=== PATIENT | male | born 1955 | race Caucasian/White ===

== ENCOUNTER 2019-04-18 00:28 | Outpatient (CLI) | payer BC, SELFPAY ==
--- NOTE | 2019-04-18 09:54 | DI.NM_ITS ---
APPROVED REPORT Exam: Pharmacologic Patient Location: Out-Patient Room/Bed: Stress Nurse: Elke Umanzor RN BMI: 21.29 Baseline Rhythm: LBBB Medical History Medical History: CAD s/p VA, COPD, Diabetes, HTN, Smoking, GERD Cardiac Medications: Aspirin, Metoprolol, Atorvastatin, Metformin, Allergies: No known drug allergies Cardiac Risk Factors: HTN, Hyperlipidemia, DM, FHX of CAD, Smoking Previous Cardiac Procedures: PCI, Myocardial infarction Pretest Chest Pain Characteristics: No chest pain Exercise History: Physically active Lung Sounds: Clear to auscultation Heart Sounds: Regular Stress Test Details Test: Pharmacologic stress testing performed using 0.4 mg of regadenoson per 5 mL given IV over 10 s econds. Nuclear Acquisition: Rest Tc-99m/Stress Tc-99m 1 day Rest Isotope: Tc-99m Sestamibi. Dose: 11.0 Date: 04/18/2019 Injection Time: 0845 Stress Isotope: Tc-99m Sestamibi. Dose: 33.3 Date: 04/18/2019 Injection Time: 1020 HR Max Heart Rate (APMHR): 156 bpm Resting HR Supine: 51 bpm Target HR (85% APMHR): 132 bpm Max HR Achieved: 82 bpm % of APMHR: 52 Recovery HR: 71 bpm HR response to stress: Normal HR response to stress BP Resting BP Supine: 132/60 mmHg Max BP: 162/64 mmHg Recovery BP: 154/60 mmHg BP response to stress: Normal blood pressure response to stress. ECG Resting ECG: LBBB ST Change: LBBB Stress ECG: LBBB ST Change: LBBB Recovery ECG: LBBB Recovery ST Change: LBBB Clinical Stress Symptoms: Headache Scale: Active Angina Score: None Stress ECG Conclusion 1. There is no evidence of ischemia on the ECG portion of this exam. Protocol Used: Regadenoson Stress Test Summary STAGE HR BP Symptoms NOTES Supine 51 132/60 Standing 1 min post lexiscan injection 69 160/70 2 min 3 min post lexiscan injection 82 160/70 4 min 5 min 6 min post lexiscan injection 77 162/64 7 min 8 min 9 min post lexiscan injection 71 154/60 10 min MPI Conclusion Ejection fraction was 54% with no wall motion abnormalities. There is a small fixed apical perfusion defect without significant yvonne-infarct ischemia. There is no evidence of reversible ischemia on the imaging portion of this exam. Radiologist Interpretation Radiologist agrees with Manager Floral's Interpretation. Radiologist Interpretation by: Yojana Hendrix MD Interpretation Date/Time: 04/19/2019 14:56:18
[2019-04-18] MEDS: Regadenoson 0.4 MG/5 ML SYR IVP (10:51)
== END 2019-04-18 00:48 ==
PROVIDERS: Visit Provider Internal Medicine Interventional Cardiology
DX: I25.10 Atherosclerotic heart disease of native coronary artery without angina pectoris (principal); I25.2 Old myocardial infarction; I10 Essential (primary) hypertension; E78.5 Hyperlipidemia, unspecified; E11.9 Type 2 diabetes mellitus without complications; F17.200 Nicotine dependence, unspecified, uncomplicated; Z82.49 Family history of ischemic heart disease and other diseases of the circulatory system
CPT/HCPCS: 78452; 93017; J2785

== ENCOUNTER 2021-11-07 00:50 | Outpatient (RCR) | payer MEDICARE, SELFPAY ==
--- OUTSIDE RECORDS SUMMARY | 2021-11-07 00:52 | XMS_ITS | Clinical Summary ---
:1955 Author Organization [facility] [place] [address] Care Team Providers Name Role Phone William Wade Primary Care Provider Allergies No known active allergies Medications Medication Sig Dispensed Refills Start Date End Date Status nitroGLYcerin Place under the 0 07/25/2008 Active (NITROSTAT) 0.4 mg SL tongue. tablet atorvastatin (LIPITOR) 40 mg. 0 09/21/2018 Active 80 mg Tablet metFORMIN (GLUCOPHAGE) 2 times daily. 0 09/21/2018 Active 850 mg Tablet aspirin EC 81 mg Take 81 mg by 0 Active Tablet, Delayed Release mouth daily. (E.C.) metoprolol succinate XL Take by mouth 0 10/03/2021 Active (Toprol-XL) 25 mg daily. Tablet Sustained Release 24 hr pantoprazole EC Take 1 tablet by 90 tablet 3 10/28/2021 Active (Protonix) 40 mg mouth daily. Tablet, Delayed Release (E.C.)Indications: Ulcerated, duodenum losartan (Cozaar) 25 mg Take 1.5 tablets 90 tablet 3 2 Active Tablet by mouth daily. tamsulosin (Flomax) 0.4 Take 2 capsules 90 tablet 3 11/04/2021 Active mg Capsule by mouth daily. Active Problems Problem Noted Date Severe protein-calorie malnutrition 10/31/2021 Overview: < or equal to 75% of estimated energy re quirement for > or equal to 1 month and >7.5% weight loss in 3 months is consistent with severe protein-calorie malnutrition in the setting of chronic illness Pancreatic adenocarcinoma 10/31/2021 Solid nodule of lung less than 6 mm in diameter 2021 Acute on chronic blood loss anemia 10/31/2021 Duodenal ulcer 10/30/2021 Diabetes mellitus 10/14/2021 Hypertension 10/14/2021 Malignant neoplasm of head of pancreas 10/13/2021 Jaundice 09/30/2021 CIS - Dyslipidemia 04/25/2008 CIS - Non ST elevation myocardial infarction 9 Overview: 04/24/08 proximal 75% stenosis in LAD, cyp her stent placed CIS - Tobacco abuse 04/25/2008 Overview: started smoking 1994 when he was gifted a pipe Patient has cut down to 1 pack per (repo rted 04/24/08) Encounters Date Type Specialty Care Team Description 11/07/2021 Infusion Hematology and Oncology 10/30/2021 Anesthesia Event Gastroenterology Beny Gomez MD Wen, Louise Y, MD 10/30/2021 Surgery Gastroenterology Raul Avilez EGD, W CONTROL OF MD Cristy BLEEDING, ANY M ETHOD 10/30/2021 [facility] Raul Avilez Preop cardi ovascular exam; - Encounter MD Cristy Malignant neoplasm of head of pancreas; 11/03/2021 Sloane Goodrich R, Pancreatic adenocarcinoma Ava Bess MD 10/30/2021 [facility] Cardiology Dufur, Pre-operative c ardiovascular examination, high risk surgery; Encounter Raul Page MD Malignant neop lasm of head of pancreas; Multiple pulmon catherine nodules 10/30/2021 Orders Only Gastroenterology Raul Avilez MD 10/30/2021 Telephone Hematology and Fahad Giron, Follow-up financial accounting manager 10/29/2021 Telephone Gastroenterology Verona Romero 10/29/2021 Orders Only Hematology and Eric Streeter MD 10/29/2021 Telephone Gastroenterology Humberto Dumont MD 10/29/2021 Orders Only Gastroenterology Humberto Dumont Anemia du e to MD Kaylee chronic blood l oss 10/28/2021 TH Visit Hematology and Johan Arreaga Malignant neoplasm (TeleHealth) Oncology V, LGC of head of panc reas 10/28/2021 [facility] Pulmonology Malignant neopl asm of head of pancreas; Encounter Multiple pulmon catherine nodules 10/28/2021 Orders Only Hematology and Ripple, Eric Ulcerated, duodenum Oncology MD Jay Jay 10/27/2021 Office Visit Thoracic Surgery Homa, Pre-operati ve cardiovascular examination, high risk surgery; Raul Page MD Malignant neop lasm of head of pancreas; Multiple pulmon catherine nodules 10/27/2021 Telephone Pulmonology Layne Myers 10/25/2021 Telephone Hematology and Simon Handy Oncology MD Leslie 10/24/2021 Telephone Hematology and Caroline Maradiaga Oncology 10/22/2021 Ancillary Radiology William Wade Procedure J, PA 10/22/2021 Orders Only Hematology and Ripple, Eric Malignant neoplasm of head of pancreas; Oncology MD Jay Jay Lung nodules 10/22/2021 Telephone Hematology and Ferdinand, Eric Oncology MD Jay Jay 10/21/2021 [facility] Hematology and Macrocytic an emia Encounter Oncology 10/21/2021 Hospital Radiology Humberto Dumont Jaundice Encounter MD Kaylee 10/21/2021 [facility] Hematology and Malignant parisa plasm Encounter Oncology of head of panc reas 10/21/2021 Office Visit Hematology and Ripple, Eric Malignant neoplasm of head of pancreas; Oncology MD Jay Jay Macrocytic anem ia 10/21/2021 Clinical Support Hematology and Sherry Givens A, Malign ant neoplasm Oncology RD of head of panc reas 10/21/2021 Telephone Hematology and Fahad Giron, Medical Car e financial accounting manager Coordination 10/21/2021 Orders Only Hematology and Ripple, Eric Macrocytic anemia Oncology MD Jay Jay 10/21/2021 Orders Only Hematology and Ripple, Eric Macrocytic anemia; Oncology MD Jay Jay Malignant neopl asm of head of pancreas 10/17/2021 Anesthesia Event Surgery Beny Gomez M D O'Flaherty, Jennifer E, MD 10/17/2021 Surgery Surgery Rodney, NAKITA\SILVIA.CATHETE R,MD EMMIE Ortiz, WITH SQ PORT OR PUMP OVER 5Y R (WRVU 6.04) 10/17/2021 Hospital Surgery Rodney, Encounter Scooby Damon MD 10/14/2021 Laboratory Lab Jaundice; Appointment Biliary obstruc tion 10/14/2021 Office Visit General Surgery Bari Stevens randy Damon MD of head of pancreas 10/13/2021 Patient Outreach [facility]ematology [facility] 10/09/2021 Telephone General Surgery Charlotte Chavez 10/08/2021 Telephone Gastroenterology Humberto Dumont MD 10/08/2021 Telephone General Surgery Charlotte Chavez 10/08/2021 Orders Only General Surgery Stevens, Jaundice (Pr ulices Damon, Dx) 10/07/2021 Surgery Gastroenterology Humberto Dumont ERCP MD Kaylee W/SPHINCTEROTOM Y/PAP ILLOTOMY 10/07/2021 Anesthesia Event Gastroenterology FelipeTheresa denney MD Bolger, Haley J, CRNA 10/07/2021 Ancillary Gastroenterology Procedure 10/07/2021 [facility] Gastroenterology Humberto Dumont Encounter MD Kaylee 10/07/2021 Orders Only Gastroenterology Humberto Dumont MD 10/06/2021 Office Visit Vascular Surgery Sylvia Larson L, Carotid stenosis, PRODUCTION ASSOCIATE asymptomatic, bilateral 10/06/2021 Tech Visit Vascular Surgery Mary Carmen Quintero Carotid stenosis, L, RVT asymptomatic, bilateral 10/01/2021 Telephone Gastroenterology Caroline Benitez 10/01/2021 Telephone Gastroenterology Caroline Benitez 10/01/2021 Telephone Gastroenterology Caroline Benitez 10/01/2021 Orders Only Gastroenterology Gabriel Hilario Jaundice (Primary Dx); MD Jhon Biliary obstruc tieleno 09/30/2021 Hospital Radiology Gabriel Hilario Jaundice; Encounter MD Jhon Biliary obstruc dc 09/30/2021 Office Visit Gastroenterology Gabriel Hilario Jaundice (Primary Dx); MD Jhon Biliary obstruc dc 09/29/2021 Telephone Gastroenterology Hailey [place] 08/22/2021 Transcribe Orders Primary Care Hailey [place] Other chronic pancreatitis; Weight loss from Last 3 Months Immunizations Name Administration Dates Next Due Influenza Vaccine, Whole 04/25/2008 Pneumococcal Polyvalent 23 04/25/2008 Family History Medical History Relation Comments Cancer Father gastrointestinal Colorectal Cancer Maternal Aunt Relation Status Comments Father Maternal Aunt Mother Social History Tobacco Use Types Packs/Day Years Used Date Current Every Day Smoker Cigarettes 0.5 Smokeless Tobacco: Never Used Tobacco Cessation: Ready to Quit: No; Co unseling Given: Yes Comments: knows he will have to quit Alcohol Use Standard Drinks/Week Comments Yes 0 (1 standard drink = 0.6 oz pure alcoho l) about 3 times a year Alcohol Habits Answer Date Recorded How often do you have a drink containing alcohol? Not asked How many drinks containing alcohol do you have on Not asked a typical day when you are drinking? How often do you have six or more drinks on one Not asked occasion? Comment: about 3 times a year 06/19/2021 Financial Resource Strain Answer Date Recorded How hard is it for you to pay for the very basics like Not v edita hard 10/21/2021 food, housing, medical care, and heating? Food Insecurity Answer Date Recorded Within the past 12 months, you worried that your food would Never true 10/21/2021 run out before you got money to buy more. Within the past 12 months, the food you bought just didn't N ot asked last and you didn't have money to get more. Transportation Needs Answer Date Recorded In the past 12 months, has lack of transportation kept you N o 10/21/2021 from medical appointments or from getting medications? In the past 12 months, has lack of transportation kept you N ot asked from meetings, work, or getting things needed for daily living? Housing Stability Answer Date Recorded In the last 12 months, was there a time when you were not ab le No 10/21/2021 to pay the mortgage or rent on time? In the last 12 months, how many places have you lived? 1 10/21/2021 In the last 12 months, was there a time when you did not hav e a No 10/21/[address] sleep or slept in a fdc (including now)? Sex Assigned at Date Recorded Not on file Last Filed Vital Signs Vital Sign Reading Time Taken Comments Blood Pressure 128/52 11/03/2021 11:11 AM EDT Pulse 63 11/03/2021 11:26 AM EDT Temperature 36.6 ??C (97.9 ??F) 11/03/2021 11:11 AM EDT Respiratory Rate 16 11/03/2021 11:11 AM EDT Oxygen Saturation 97% 11/03/2021 11:11 AM EDT Inhaled Oxygen Concentration - - Weight 49.9 kg (110 lb) 10/30/2021 1:50 PM EDT Height 165.1 cm (5' 5) 10/30/2021 1:50 PM EDT Body Mass Index 18.3 10/30/2021 1:50 PM EDT Plan of Treatment Upcoming Encounters Date Type Specialty Care Team Description 11/07/2021 Office Visit Hematology and Oncology Eric Streeter MD [facility] [place], [place] [address] (Wo rk) 11/07/2021 Infusion Hematology and Oncology 11/07/2021 Office Visit Hematology and Oncology Irena Hinojosa RD [facility] [address] HEMATOLOGY AND O NCOLOGY [place], [place] [address] (Wo rk) 11/21/2021 Office Visit Hematology and Oncology Eric Streeter MD [facility] [place], [place] [address] (Wo rk) 11/21/2021 Infusion Hematology and Oncology 12/05/2021 Office Visit Hematology and Oncology Eric Streeter MD [facility] [place], [place] [address] (Wo rk) 12/05/2021 Infusion Hematology and Oncology 12/19/2021 Office Visit Hematology and Oncology Eric Streeter MD [facility] [place], [place] [address] (Wo rk) 12/19/2021 Infusion Hematology and Oncology Health Maintenance Due Date Last Done Comments Covid-19 Vaccine (#1) 06/10/1960 DM Hemoglobin A1c 1964 DM Opthalmology Exam 1964 DM Urine Microalbumin yearly 1964 Hepatitis C Screening 1972 Tdap adult 1973 Tetanus vaccine 1973 Colonoscopy 06/10/1999 Zoster vaccine (1 of 2) 2004 Pneumoccocal Vaccine: 65+ (2 - 04/25/2009 04/25/2008 PCV) Advance Directive 2009 AAA Screen 06/10/2019 Influenza (Flu) vaccine (1 of 1 - 11/20/2021 04/25/2008 Influenza standard series) DM Creatinine yearly 11/03/2022 11/03/2021, 11/02/2021, 11/01/2021, Additional history exists Medical Devices Implanted Type Area Manager Of Corporate Device Identifier Shelf Model / Expiration Serial / Date Lot [employer] Epic Biliary Endoscopic Stent IMPLANTS Bile ALEXANDRA STON [id number] / Implanted: Qty: 1 on 10/07/2021 by Humberto Dumont MD at [facility] Du[employer] / [employer] - [place] [employer] Port Infusion 8fr Cath Lp 1lum Ct Plastic Dignity ([id number]) - [id number] IMPLANTS Right: [employer] - [id number] 02/18/2026 [id number] / Implanted: Qty: 1 on 10/17/2021 by Scooby Stevens MD at [facility] Chest [employer] IN / [id number] Procedures Procedure Name Priority Date/Time Associated Diagnosis Comme nts LAB SCAN 11/06/2021 12:00 Results for this AM EDT procedure are i n the results section. POCT GLUCOSE Routine 11/03/2021 11:25 Results for this AM EDT procedure are i n the results section. XR CHEST ONE VIEW Routine 11/03/2021 10:14 Result s for this AM EDT procedure are i n the results section. XR CHEST ONE VIEW Routine 11/03/2021 9:20 Results for this AM EDT procedure are i n the results section. CT GUIDED BIOPSY LUNG Routine 11/03/2021 9:12 Res ults for this AM EDT procedure are i n the results section. SURGICAL PATHOLOGY Routine 11/03/2021 8:30 Result s for this REPORT AM EDT procedure are i n the results section. SPECIMEN TO PATHOLOGY Routine 11/03/2021 7:48 Res ults for this AM EDT procedure are i n the results section. POCT GLUCOSE Routine 11/03/2021 7:36 Results for this AM EDT procedure are i n the results section. DIFFERENTIAL, Routine 11/03/2021 4:15 Results for this AUTOMATED AM EDT procedure are i n the results section. HEMOGRAM Routine 11/03/2021 4:15 Results for this AM EDT procedure are i n the results section. HC PARTIAL Routine 11/03/2021 4:15 Results for this THROMBOPLASTIN TIME AM EDT procedur e are in the results section. HC PROTHROMBIN TIME Routine 11/03/2021 4:15 Resul ts for this AM EDT procedure are i n the results section. HEPATIC FUNCTION PANEL Routine 11/03/2021 4:15 Re sults for this AM EDT procedure are i n the results section. HC PHOSPHORUS, SERUM Routine 11/03/2021 4:15 Resu lts for this AM EDT procedure are i n the results section. HC MAGNESIUM, SERUM Routine 11/03/2021 4:15 Resul ts for this AM EDT procedure are i n the results section. BASIC METABOLIC PANEL Routine 11/03/2021 4:15 Res ults for this (NON-FASTING) AM EDT procedure are in the results section. HC CBC,PLT & AUTO DIFF Routine 11/03/2021 4:15 AM EDT POCT GLUCOSE Routine 11/02/2021 7:52 Results for this PM EDT procedure are i n the results section. POCT GLUCOSE Routine 11/02/2021 4:40 Results for this PM EDT procedure are i n the results section. POCT GLUCOSE Routine 11/02/2021 12:04 Results for this PM EDT procedure are i n the results section. POCT GLUCOSE Routine 11/02/2021 8:27 Results for this AM EDT procedure are i n the results section. DIFFERENTIAL, Routine 11/02/2021 2:13 Results for this AUTOMATED AM EDT procedure are i n the results section. HEMOGRAM Routine 11/02/2021 2:13 Results for this AM EDT procedure are i n the results section. HC PARTIAL Routine 11/02/2021 2:13 Results for this THROMBOPLASTIN TIME AM EDT procedur e are in the results section. HC PROTHROMBIN TIME Routine 11/02/2021 2:13 Resul ts for this AM EDT procedure are i n the results section. HEPATIC FUNCTION PANEL Routine 11/02/2021 2:13 Re sults for this AM EDT procedure are i n the results section. HC PHOSPHORUS, SERUM Routine 11/02/2021 2:13 Resu lts for this AM EDT procedure are i n the results section. HC MAGNESIUM, SERUM Routine 11/02/2021 2:13 Resul ts for this AM EDT procedure are i n the results section. BASIC METABOLIC PANEL Routine 11/02/2021 2:13 Res ults for this (NON-FASTING) AM EDT procedure are in the results section. HC CBC,PLT & AUTO DIFF Routine 11/02/2021 2:13 AM EDT POCT GLUCOSE Routine 11/01/2021 9:08 Results for this PM EDT procedure are i n the results section. POCT GLUCOSE Routine 11/01/2021 5:05 Results for this PM EDT procedure are i n the results section. HC VENIPUNCTURE Routine 11/01/2021 1:00 Results f or this PM EDT procedure are i n the results section. POCT GLUCOSE Routine 11/01/2021 11:05 Results for this AM EDT procedure are i n the results section. POCT GLUCOSE Routine 11/01/2021 7:30 Results for this AM EDT procedure are i n the results section. DIFFERENTIAL, Routine 11/01/2021 2:38 Results for this AUTOMATED AM EDT procedure are i n the results section. HEMOGRAM Routine 11/01/2021 2:38 Results for this AM EDT procedure are i n the results section. HC PARTIAL Routine 11/01/2021 2:38 Results for this THROMBOPLASTIN TIME AM EDT procedur e are in the results section. HC PROTHROMBIN TIME Routine 11/01/2021 2:38 Resul ts for this AM EDT procedure are i n the results section. HEPATIC FUNCTION PANEL Routine 11/01/2021 2:38 Re sults for this AM EDT procedure are i n the results section. HC PHOSPHORUS, SERUM Routine 11/01/2021 2:38 Resu lts for this AM EDT procedure are i n the results section. HC MAGNESIUM, SERUM Routine 11/01/2021 2:38 Resul ts for this AM EDT procedure are i n the results section. BASIC METABOLIC PANEL Routine 11/01/2021 2:38 Res ults for this (NON-FASTING) AM EDT procedure are in the results section. HC VENIPUNCTURE Routine 11/01/2021 2:38 AM EDT POCT GLUCOSE Routine 10/31/2021 8:14 Results for this PM EDT procedure are i n the results section. POCT GLUCOSE Routine 10/31/2021 5:15 Results for this PM EDT procedure are i n the results section. POCT GLUCOSE Routine 10/31/2021 3:12 Results for this PM EDT procedure are i n the results section. HC VENIPUNCTURE Routine 10/31/2021 1:55 Results f or this PM EDT procedure are i n the results section. POCT GLUCOSE Routine 10/31/2021 11:09 Results for this AM EDT procedure are i n the results section. POCT GLUCOSE Routine 10/31/2021 7:31 Results for this AM EDT procedure are i n the results section. POCT GLUCOSE Routine 10/31/2021 6:36 Results for this AM EDT procedure are i n the results section. TYPE AND SCREEN Routine 10/31/2021 4:13 Results f or this VALIDITY AM EDT procedure are i n the results section. ANTIBODY SCREEN Routine 10/31/2021 4:13 Results f or this AM EDT procedure are i n the results section. ABO/RH TYPING Routine 10/31/2021 4:13 Results for this AM EDT procedure are i n the results section. DIFFERENTIAL, Routine 10/31/2021 4:13 Results for this AUTOMATED AM EDT procedure are i n the results section. HEMOGRAM Routine 10/31/2021 4:13 Results for this AM EDT procedure are i n the results section. HC ANTIBODY Routine 10/31/2021 4:13 DETECTION,CAPTURE-R AM EDT HC PARTIAL Routine 10/31/2021 4:13 Results for this THROMBOPLASTIN TIME AM EDT procedur e are in the results section. HC PROTHROMBIN TIME Routine 10/31/2021 4:13 Resul ts for this AM EDT procedure are i n the results section. HEPATIC FUNCTION PANEL Routine 10/31/2021 4:13 Re sults for this AM EDT procedure are i n the results section. HC PHOSPHORUS, SERUM Routine 10/31/2021 4:13 Resu lts for this AM EDT procedure are i n the results section. HC MAGNESIUM, SERUM Routine 10/31/2021 4:13 Resul ts for this AM EDT procedure are i n the results section. BASIC METABOLIC PANEL Routine 10/31/2021 4:13 Res ults for this (NON-FASTING) AM EDT procedure are in the results section. HC CBC,PLT & AUTO DIFF Routine 10/31/2021 4:13 AM EDT POCT GLUCOSE Routine 10/31/2021 3:18 Results for this AM EDT procedure are i n the results section. POCT GLUCOSE Routine 10/31/2021 12:09 Results for this AM EDT procedure are i n the results section. POCT GLUCOSE Routine 10/30/2021 11:09 Results for this PM EDT procedure are i n the results section. POCT GLUCOSE Routine 10/30/2021 9:10 Results for this PM EDT procedure are i n the results section. POCT GLUCOSE Routine 10/30/2021 7:03 Results for this PM EDT procedure are i n the results section. EKG 12-LEAD Routine 10/30/2021 5:50 Malignant neoplasm of Res ults for this PM EDT head of pancreas procedure a re in the results section. POCT GLUCOSE Routine 10/30/2021 4:17 Results for this PM EDT procedure are i n the results section. EGD, W CONTROL OF 10/30/2021 2:45 Anemia due to chroni c BLEEDING, ANY METHOD PM EDT blood loss UPPER GI ENDOSCOPY Routine 10/30/2021 2:40 Result s for this PM EDT procedure are i n the results section. POCT GLUCOSE Routine 10/30/2021 2:04 Results for this PM EDT procedure are i n the results section. ECHOCARDIOGRAM STAT 10/30/2021 1:36 Pre-operative Results f or this COMPLETE PM EDT cardiovascular procedure are in examination, high the result s risk surgery section. Malignant neoplasm of head of pancreas Multiple pulmonary nodules LAB SCAN 10/30/2021 12:00 Results for this AM EDT procedure are i n the results section. LAB SCAN 10/29/2021 12:00 Results for this AM EDT procedure are i n the results section. LAB SCAN 10/29/2021 12:00 Results for this AM EDT procedure are i n the results section. PULMONARY FUNCTION Routine 10/28/2021 6:59 Malignant neoplasm of Results for this TEST AM EDT head of pancreas procedure are in Multiple pulmonary the resul ts nodules section. MRI/MRA SCAN 10/27/2021 12:00 Results for this AM EDT procedure are i n the results section. FILM LIBRARY STORAGE Routine 10/22/2021 12:00 Res ults for this ONLY MR ABDOMEN AM EDT procedure ar e in the results section. HC DIRECT Routine 10/21/2021 2:14 Macrocytic anemia Results for this ANTI-GLOBULIN TEST, PM EDT procedur e are in BROAD SPECTRUM the results section. CT CHEST W CONTRAST Routine 10/21/2021 1:42 Jaundice Resul ts for this PM EDT procedure are i n the results section. HAPTOGLOBIN Routine 10/21/2021 12:15 Results for this PM EDT procedure are i n the results section. LACTATE DEHYDROGENASE Routine 10/21/2021 12:15 Re sults for this PM EDT procedure are i n the results section. SCAN, PERIPHERAL BLOOD Routine 10/21/2021 12:15 R esults for this PM EDT procedure are i n the results section. RETICULOCYTE COUNT Routine 10/21/2021 12:15 Resul ts for this PM EDT procedure are i n the results section. FOLATE, SERUM Routine 10/21/2021 12:15 Results fo r this PM EDT procedure are i n the results section. VITAMIN B12 Routine 10/21/2021 12:15 Results for this PM EDT procedure are i n the results section. FERRITIN Routine 10/21/2021 12:15 Results for this PM EDT procedure are i n the results section. IRON AND TIBC Routine 10/21/2021 12:15 Results fo r this PM EDT procedure are i n the results section. DIFFERENTIAL, Routine 10/21/2021 12:15 Malignant neoplasm of R esults for this AUTOMATED PM EDT head of pancreas procedure a re in the results section. HEMOGRAM Routine 10/21/2021 12:15 Malignant neoplasm of Re sults for this PM EDT head of pancreas procedure a re in the results section. DPYD PCR Routine 10/21/2021 12:15 Malignant neoplasm of Re sults for this PM EDT head of pancreas procedure a re in the results section. HC CARBOHYDRATE Routine 10/21/2021 12:15 Malignant neoplasm of Results for this ANTIGEN 19-9 PM EDT head of pancreas procedure a re in the results section. COMPREHENSIVE Routine 10/21/2021 12:15 Malignant neoplasm of R esults for this METABOLIC PANEL PM EDT head of pancreas procedur e are in (NON-FASTING) the results section. HC CBC,PLT & AUTO DIFF Routine 10/21/2021 12:15 Malignant neop lasm of PM EDT head of pancreas XR CHEST ONE VIEW Routine 10/17/2021 12:10 Result s for this PM EDT procedure are i n the results section. NON-HEALTHCARE ARCHITECT FINAL REPORT Routine 10/17/2021 11:37 Res ults for this AM EDT procedure are i n the results section. CYTOPATHOLOGY Routine 10/17/2021 11:37 Results fo r this NON-GYNECOLOGICAL AM EDT procedure are in the results section. XR FLUORO NO RAD <1HR Routine 10/17/2021 11:20 Re sults for this - OR USE AM EDT procedure are i n the results section. NAKITA\SILVIA.CATHETER,TUNNE Yes 10/17/2021 10:30 pancreas cance r LED, WITH SQ PORT OR AM EDT PUMP OVER 5YR (WRVU 6.04) LAPAROSCOPY,SURGICAL,W Yes 10/17/2021 10:30 pancreas cance r ITH BIOPSY, SINGLE OR AM EDT MULTIPLE (WRVU 5.44) POCT GLUCOSE Routine 10/17/2021 9:54 Results for this AM EDT procedure are i n the results section. SCAN, PERIPHERAL BLOOD Routine 10/14/2021 10:22 R esults for this AM EDT procedure are i n the results section. DIFFERENTIAL, Routine 10/14/2021 10:22 Jaundice Results fo r this AUTOMATED AM EDT procedure are i n the results section. HEMOGRAM Routine 10/14/2021 10:22 Jaundice Results for this AM EDT procedure are i n the results section. HC CARBOHYDRATE Routine 10/14/2021 10:22 Jaundice Results for this ANTIGEN 19-9 AM EDT procedure are i n the results section. HC CBC,PLT & AUTO DIFF Routine 10/14/2021 10:22 Jaundice AM EDT BASIC METABOLIC PANEL Routine 10/14/2021 10:22 Jaundice Re sults for this (NON-FASTING) AM EDT procedure are in the results section. HC VENIPUNCTURE Routine 10/14/2021 10:22 Jaundice Results for this AM EDT procedure are i n the results section. XR ERCP Routine 10/07/2021 1:02 Results for this PM EDT procedure are i n the results section. NON-HEALTHCARE ARCHITECT FINAL REPORT Routine 10/07/2021 10:33 Res ults for this AM EDT procedure are i n the results section. CYTOPATHOLOGY Routine 10/07/2021 10:33 Results fo r this NON-GYNECOLOGICAL AM EDT procedure are in the results section. ERCP, W PLCMNT 10/07/2021 9:49 Jaundice ENDOSCOPIC STENT AM EDT Biliary obstruction BILIARY OR PANCREATIC DUCT FINE NEEDLE ASPIRATION 10/07/2021 9:49 Jaundice BIOPSY, INC US AM EDT Biliary obstruction GUIDANCE; FIRST LESION CHOLANGIOGRAM 10/07/2021 9:49 Jaundice AM EDT Biliary obstruction ERCP, W BALLOON 10/07/2021 9:49 Jaundice DILATION OF AM EDT Biliary obstruction BILIARY/PANCREATIC DUCT EGD, W US GUIDED FINE 10/07/2021 9:49 Jaundice NEEDLE AM EDT Biliary obstruction ASPIRATION/BIOPSY UPPER EUS- ENDOSCOPIC 10/07/2021 9:49 Jaundice ULTRASOUND AM EDT Biliary obstruction ERCP 10/07/2021 9:49 Jaundice W/SPHINCTEROTOMY/PAPIL AM EDT Biliary obstructio n LOTOMY ERCP Routine 10/07/2021 9:42 Results for this AM EDT procedure are i n the results section. UPPER EUS-ENDOSCOPIC Routine 10/07/2021 9:41 Resu lts for this ULTRASOUND AM EDT procedure are i n the results section. POCT GLUCOSE Routine 10/07/2021 9:30 Results for this AM EDT procedure are i n the results section. CAROTID DUPLEX, Routine 10/06/2021 12:10 Carotid stenosis, Res ults for this BILATERAL PM EDT asymptomatic, procedure are in bilateral the results section. CT ABDOMEN W CONTRAST STAT 09/30/2021 4:42 Jaundice Results for this PM EDT Biliary obstruction procedur e are in the results section. LAB SCAN 09/26/2021 12:00 Results for this AM EDT procedure are i n the results section. from Last 3 Months Results SCAN DOC: LAB (11/06/2021 12:00 AM EDT)Only the most recent of5 resultswithin the time period is included. Narrative 11/06/2021 12:00 AM EDT This result has an attachment that is no t available. Ordered by an unspecified provider. Scanning Provider MEDIA MGR SCAN EXT ORDR/RSLT POCT Glucose (11/03/2021 11:25 AM EDT)Only the most recent of25 resultswithin the time period is included. P athologist Signature POC Glucose 167 65 - 199 KAMALJIT SCHRADER mg/dL [facility] Comment: Supplemental ranges: <140 mg/dL before meals <180 mg/dL all other times of the day Specimen Anatomical Collection Method Collection Time Receive d Time (Source) Location / / Volume Laterality Blood 11/03/2021 11:25 11/03/2021 AM EDT 11:25 AM EDT Ava Victor MD POINT OF CARE TEST ORDERABLE S Performing Organization Address City/State/[place] [address] XR Chest One View (11/03/2021 10:14 AM EDT)Only the most recent of3 results within the time period is included. Anatomical Region Laterality Modality Chest N/A Digital Radiography Specimen (Source) Anatomical Location Collection Method / Collectio n Time Received Time / Laterality Volume Impressions 11/03/2021 10:18 AM EDT No pneumothorax. Thank you for letting us participate in the care of this patient. ??If you are a health care provider and have any questi ons regarding this report, please contact the number below. ??For patients who have questions please contact the health group care worker that requested your imaging first. ? Narrative 11/03/2021 10:18 AM EDT EXAMINATION: XR CHEST ONE VIEW CLINICAL HISTORY: 1 hr post ??RT lung bi opsy TECHNIQUE: 1 view of the chest COMPARISON: Chest x-ray from earlier today at 0919 h ours FINDINGS: Unchanged right-sided Mediport. No inter alexei change in the cardiomediastinal silhouette, justo, or central pulmonary v ascular markings. No pneumothorax. Procedure Note Kehinde Chang MD - 11/03/2021Formattin g of this note might be different from the original. EXAMINATION: XR CHEST ONE VIEW CLINICAL HISTORY: 1 hr post RT lung biop sy TECHNIQUE: 1 view of the chest COMPARISON: Chest x-ray from earlier today at 0919 h ours FINDINGS: Unchanged right-sided Mediport. No inter alexei change in the cardiomediastinal silhouette, justo, or central pulmonary v ascular markings. No pneumothorax. IMPRESSION No pneumothorax. Thank you for letting us participate in the care of this patient. If you are a health care provider and have any questi ons regarding this report, please contact the number below. For patients w ho have questions please contact the health group care worker that requested your imaging first. Ava Victor MD IMG DX ORDERABLES CT Guided Biopsy Lung (11/03/2021 9:12 AM EDT) Anatomical Region Laterality Modality Lung Computed Tomography Specimen (Source) Anatomical Location Collection Method / Collectio n Time Received Time / Laterality Volume Impressions 11/03/2021 9:25 AM EDT Impression: Technically successful CT-guided core needle biopsy of the right lower lobe pulmonary nodule. Plan: * ??Chest x-ray now and in 2 hours. * ??To IR postprocedural recovery room * ??Discharge from IR when criteria are met Sales Forecast Analyst(s): Resident/Fellow: Tammy Gaviria Attending: Candis Stallings Procedure/Teaching Attestation: I was pr esent for the procedure. Moderate Sedation Attestation: I was pre sent during the intra-service time as documented by IR nurse. Preliminary report signed by: Sergo roe at 11/03/2021 9:16 AM I have personally reviewed the image(s) and the resident's interpretation and agree with the findings, Nelson Cotton at 11/03/2021 9:25 AM Thank you for letting us participate in the care of this patient. ??If you are a health care provider and have any questi ons regarding this report, please contact the number below. ??For patients who have questions please contact the health group care worker that requested your imaging first. ? Electronically signed by: Jaron Stallings DO, [facility] ([phone]), at 11/03/2021 9:25 AM Narrative 11/03/2021 9:25 AM EDT RADIOLOGY PROCEDURE NOTE Procedure: CT-guided biopsy of right low er lobe pulmonary nodule. 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 Low DLCO and VATS might not be an option so need IR.. Consent: After discussing the risks (inc luding infection, hemorrhage, damage to surrounding structures, respiratory depr ession, and pneumothorax) and benefits, the patient consented to the procedure. Method of Sedation: Due to the painful n ature of the procedure, patient received split doses of intravenous fentanyl and midazolam from the IR nurse while pulse, pressure, and oxygen saturation were con tinuously monitored. 1% lidocaine was used for local analgesia. Technique: Prior to beginning the procedure, a annika dard time out Moment of Truth was performed. The patient was positioned pr one on the CT table. ??An initial planning non-contrast localizing CT scan of the chest was obtained. The site for biopsy was identified and marked on the skin with the assistance of the CT laser lights. The skin was prepped and draped in the usual sterile fashion. Local anesthesia provided with 1% lidocaine. A 19 ga introducer needle was directed to the target lesion with the assistance of CT fluoroscopy. Coaxially, 3, 20-gauge, 2-cm core biopsies were taken. Through t he introducer needle, the [employer] pleural plug was deployed. ??The needle was removed. Petroleum gauze and sterile gauze dressing was applied. A post-proce dure noncontrast CT scan was obtained. Medications: Please see EMR Contrast: None EBL: <5 cc Complications: No immediate Specimens: 3 core biopsy samples of the right lower lobe pulmonary nodule. Findings: Pre-procedure planning CT exam of the chest showed 5 mm right lower lobe pulmonary nodule. Intra-procedural CT showed the biopsy needle in the target lesion. Post-biopsy CT showed tin y pneumothorax. Procedure Note ChandrakantJaron cabello Thaddeus, DO - 11/03/2021Formatti ng of this note might be different from the original. RADIOLOGY PROCEDURE NOTE Procedure: CT-guided biopsy of right low er lobe pulmonary nodule. 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 Low DLCO and VATS might not be an option so need IR.. Consent: After discussing the risks (inc luding infection, hemorrhage, damage to surrounding structures, respiratory depr ession, and pneumothorax) and benefits, the patient consented to the procedure. Method of Sedation: Due to the painful n ature of the procedure, patient received split doses of intravenous fentanyl and midazolam from the IR nurse while pulse, pressure, and oxygen saturation were con tinuously monitored. 1% lidocaine was used for local analgesia. Technique: Prior to beginning the procedure, a annika dard time out Moment of Truth was performed. The patient was positioned pr one on the CT table. An initial planning non-contrast localizing CT scan of the chest was obtained. The site for biopsy was identified and marked on the skin with the assistance of the CT laser lights. The skin was prepped and draped in the usual sterile fashion. Local anesthesia provided with 1% lidocaine. A 19 ga introducer needle was directed to the target lesion with the assistance of CT fluoroscopy. Coaxially, 3, 20-gauge, 2-cm core biopsies were taken. Through t he introducer needle, the [employer]entry pleural plug was deployed. The needle wa s removed. Petroleum gauze and sterile gauze dressing was applied. A post-proce dure noncontrast CT scan was obtained. Medications: Please see EMR Contrast: None EBL: <5 cc Complications: No immediate Specimens: 3 core biopsy samples of the right lower lobe pulmonary nodule. Findings: Pre-procedure planning CT exam of the chest showed 5 mm right lower lobe pulmonary nodule. Intra-procedural CT showed the biopsy needle in the target lesion. Post-biopsy CT showed tin y pneumothorax. IMPRESSION Impression: Technically successful CT-gu ided core needle biopsy of the right lower lobe pulmonary nodule. Plan: * Chest x-ray now and in 2 hours. * To IR postprocedural recovery room * Discharge from IR when criteria are me t Sales Forecast Analyst(s): Resident/Fellow: Tammy Gaviria Attending: Candis Stallings Procedure/Teaching Attestation: I was pr esent for the procedure. Moderate Sedation Attestation: I was pre sent during the intra-service time as documented by IR nurse. Preliminary report signed by: Sergo Almaguer ran at 11/03/2021 9:16 AM I have personally reviewed the image(s) and the resident's interpretation and agree with the findings, Nelson Cotton at 11/03/2021 9:25 AM Thank you for letting us participate in the care of this patient. If you are a health care provider and have any questi ons regarding this report, please contact the number below. For patients w ho have questions please contact the health group care worker that requested your imaging first. Electronically signed by: Jaron Satllings DO, [facility] ([phone]), at 11/03/2021 9:25 AM Sloane Goodrich MD IMG CT ORDERABLES Surgical Pathology Report (11/03/2021 8:30 AM EDT) Component Value Ref Test Analysis Performed At [facility] Method Time Signature Surgical [id number] ? Location: [facility]; [address] [place] [address] Report The signing pathologist has (i) examined the relevant preparation(s) for the [facility] specimen(s) and (ii) rendered or confirmed the diagnosis(es) . HOSPITAL [facility]ORY . ?Surgic al Pathology DIAGNOSIS Right lung, biopsy: Benign lung parenchyma with patchy chronic infla mmation and reactive changes, negative for malignancy. (see Discussion) Electronically signed by: ?Komal PETERSON, Haylee Santiago Verified: ??11/06/2021 11:19 ??Pathologist Performed at: ??-[facility] [place] Dept. [place]ology, [place], [place] DISCUSSION Step levels were examined. SPECIMEN(S) SUBMITTED A - Right lung, biopsy (Multiple) CLINICAL INFORMATION Bleeding pancreatic cancer w ith lung nodules-favor biopsy of RLL 4.7 mm nodule. Low DLCO and VATS might not be an option so need IR. SPECIMEN PROCESSING A - Labeled/Fixative: Right lung, formalin. Quantity/Size: Fragments, ranging from 0.1 x 0.1-0.3 x 0.1 c m Tissue Description: Rogers-nielsen fragmented needle core biopsies Sections/Processing: Entirely submitted in 1 cassette labeled A1. ??jnr Specimen (Source) Anatomical Collection Method Collection Time Re ceived Time Location / / Volume Laterality 11/03/2021 8:30 AM EDT Kartik Olivas MD PATHOLOGY/CYTOLOGY ORDERABLE S Performing Organization Address City/State/[place] [address] Specimen to Pathology (11/03/2021 7:48 AM EDT) Specimen Anatomical Collection Method Collection Time Receive d Time (Source) Location / / Volume Laterality AP Specimen 11/03/2021 7:48 AM 7:48 EDT AM [address] [facility] - 11/03/2021 7:48 AM EDT Specimen requisition ordered. ??Separate Pathology report to follow Ava Victor MD PATHOLOGY/CYTOLOGY ORDERABLE S Performing Organization Address City/[facility]/[place] [address] (ABNORMAL) Hemogram (11/03/2021 4:15 AM EDT)Only the most recent of6 results within the time period is included. [facility] gist Method Time Signature WBC 8.4 4.0 - 9.5 [facility] x10(3)/[facility] LABORATORY RBC 2.30 (L) 4.58 - [facility] 5.54 [facility] x10(6)/[facility] LABORATORY Hemoglobin 8.5 (L) 13.7 - [facility] 16.5 g/dL [facility] Hematocrit 25.7 (L) 40.5 - [facility] AMBRIZCOCK 48.5 % [facility] MCV 111.7 (H) 82.9 - KAMALJIT RACIEL 93.1 [facility] LABORATORY MCH 37.0 (H) 27.5 - [facility] AMBRIZCOCK 32.1 pg [facility] MCHC 33.1 32.0 - KAMALJIT BENNETTRACIEL 35.7 g/dL [facility] Platelets 161 145 - 357 [facility] x10(3)/[facility] LABORATORY RDWSD 68.1 (H) 36.0 - KAMALJIT BENNETTRACIEL 45.0 [facility] LABORATORY RDWCV 16.6 (H) 11.4 - [facility] RACIEL 13.8 % [facility] MPV 10.5 7.6 - 12.9 [facility] LABORATORY nRBC % Auto 0.0 % [facility] nRBC Abs Auto 0.000 0.000 - [facility] 0.000 [facility] x10(3)/[facility] LABORATORY Specimen Anatomical Collection Method Collection Time Receive d Time (Source) Location / / Volume Laterality Blood 11/03/2021 4:15 AM 4:44 EDT AM EDT Resulting Agency Comment Spec In Lab Melo Ambrose MD HEMATOLOGY ORDERABLES Performing Organization Address City/State/ZIP Code Phon e Number [place] [id number] Differential, Automated (11/03/2021 4:15 AM EDT)Only the most recent of6 results within the time period is included. P athologist Signature Neutrophils % 69.9 % [facility] Neutr Abs (ANC) 5.87 1.70 - [facility] AM[facility] 6.10 [facility] x10(3)/[facility] LABORATORY Lymphocytes % 22.3 % [facility] Lymphocytes Abs 1.9 0.9 - 3.2 [facility] x10(3)/[facility] LABORATORY Monocytes % 6.5 % [facility] Monocyte Abs 0.6 0.3 - 0.9 [facility] x10(3)/[facility] LABORATORY Eosinophils % 0.6 % [facility] Eosinophils Abs 0.0 0.0 - 0.4 [facility] x10(3)/[facility]ORY Basophils % 0.2 % [facility] Basophils Abs 0.0 0.0 - 0.1 [facility] x10(3)/[facility]ATORY Immature Gran % 0.50 % [facility] Comment: Immature granulocytes(IG's)percentage an d absolute count will include metamyelocytes, myelocytes, and promyelo cytes. Blood smears from CBCs yielding IG's will be scanned manually for concor dance. If this scan disagrees with the automated IG or if promyelocytes are not ed, a manual differential will be performed. Neda Gran Abs 0.04 0.00 - 0.04 x10(3)/[facility]ORY Specimen Anatomical Collection Method Collection Time Receive d Time (Source) Location / / Volume Laterality Blood 11/03/2021 4:15 AM 2 4:44 EDT AM EDT Resulting Agency Comment Spec In Lab Melo Ambrose MD HEMATOLOGY ORDERABLES Performing Organization Address City/State/ZIP Code Phon e Number [address] APTT (11/03/2021 4:15 AM EDT)Only the most recent of4 resultswithin the time period is included. athologist Signature PTT 29 25 - [address] [facility] Comment: The PTT is NOT appropriate for heparin m onitoring. Use the Anti-Xa level for heparin monitoring (HEP UFH) or LMWH mon itoring (HEP LMW). A PTT less than 37 seconds generally indicates adequate hem ostasis. Specimen Anatomical Collection Method Collection Time Receive d Time (Source) Location / / Volume Laterality Blood 11/03/2021 4:15 AM 2 4:44 EDT AM EDT Resulting Agency Comment Spec In Lab Raul Avilez MD HEMATOLOGY ORDERABLES Performing Organization Address City/State/[place] [address] (ABNORMAL) Prothrombin Time (11/03/2021 4:15 AM EDT)Only the most recent of4 resultswithin the time period is included. athologist Signature PT 13.8 (H) 9.4 - 12.5 [facility] LABORATORY INR 1.2 [facility] Comment: An INR <2.0 indicates adequate procoagul ant activity for hemostasis in most patients without underlying bleeding dis orders, though the INR may not adequately reflect hemostatic capacity i n patients with liver disease and synthetic impairment. The recommended ta rget INR range for therapeutic anticoagulation is 2.0 ? 3.0 for most applications, though lower and higher ranges may be appropriate depending on c linical circumstances. Specimen Anatomical Collection Method Collection Time Receive d Time (Source) Location / / Volume Laterality Blood 11/03/2021 4:15 AM 2 4:44 EDT AM EDT Resulting Agency Comment Spec In Lab Raul Avilez MD HEMATOLOGY ORDERABLES Performing Organization Address City/State/ZIP Code Phon e Number [address] Phosphorus (11/03/2021 4:15 AM EDT)Only the most recent of4 resultswithin the time period is included. athologist Signature Phosphorus 3.2 2.5 - 4.5 [facility] Specimen Anatomical Collection Method Collection Time Receive d Time (Source) Location / / Volume Laterality Blood 11/03/2021 4:15 AM 2 4:44 EDT AM EDT Resulting Agency Comment Spec In Lab Raul Avilez MD CHEMISTRY ORDERABLES Performing Organization Address City/State/ZIP Code Phon e Number [address] (ABNORMAL) Magnesium (11/03/2021 4:15 AM EDT)Only the most recent of4 results within the time period is included. athologist Signature Magnesium 0.68 (L) 0.69 - 1.07 [facility] mmol/L [facility] Specimen Anatomical Collection Method Collection Time Receive d Time (Source) Location / / Volume Laterality Blood 11/03/2021 4:15 AM 2 4:44 EDT AM EDT Resulting Agency Comment Spec In Lab Raul Avilez MD CHEMISTRY ORDERABLES Performing Organization Address City/[facility] [place] [address] (ABNORMAL) Hepatic Function Panel (11/03/2021 4:15 AM EDT)Only the most recent of5 resultswithin the time period is included. P athologist Signature Total Protein 5.1 (L) 6.1 - 8.0 [facility] RAC[facility] g/dL [facility] Albumin 2.4 (L) 3.2 - 5.2 [facility] g/dL [facility] AST 87 (H) 0 - 39 [facility] unit/L [facility] ALT 42 0 - 55 [facility] unit/L [facility] Alk Phos 691 (H) 40 - 130 [facility] unit/L [facility] Total 2.2 (H) 0.2 - 1.3 [facility] RACI[facility] Bilirubin mg/dL [facility] Bili, Direct 1.6 (H) 0.0 - 0.3 [facility] mg/dL [facility] Specimen Anatomical Collection Method Collection Time Receive d Time (Source) Location / / Volume Laterality Blood 11/03/2021 4:15 AM 2 4:44 EDT AM EDT Resulting Agency Comment Spec In Lab Raul Avilez MD CHEMISTRY ORDERABLES Performing Organization Address City/[facility]/[place] [address] (ABNORMAL) Basic Metabolic Panel (non-fasting) (11/03/2021 4:15 AM EDT)Only the most recent of6 resultswithin the time period is included. P athologist Signature Glucose Lvl 134 65 - 199 [facility] mg/dL [facility] Comment: Diabetes: >=200 mg/dL plus symp toms BUN 10 10 - 20 mg/dL [facility] Creatinine 0.79 (L) 0.80 - 1.50 mg/dL [facility] Sodium 136 135 - 145 mmol/L [facility] Potassium 3.8 3.5 - 5.0 mmol/L [facility] Comment: Please note: ??Patients with WBC >100,00 0 may have falsely elevated Potassium levels. ??For accurate Potassium quantif ication in these patients send serum separator tube (gold top) for subsequent determinations. ??Contact the Clinical Chemistry Laboratory if there are any qu estions. Chloride 103 98 - 107 mmol/L [facility] CO2 23 22 - 31 mmol/L [facility] Anion Gap 10 5 - 15 mmol/L [facility] Calcium 7.8 (L) 8.5 - 10.5 mg/dL [facility] Estimated GFR 97 >=60 mL/min/1.73 m?? [facility] Comment: This patient's estimated GFR was calcula jeffy using the 2020 CKD-EPI equation. The estimated GFR can vary from the [place] ured GFR by up to 30% in the absence of rapidly changing kidney function. Assess ment of the estimated GFR is not appropriate when creatinine concentratio ns are rapidly changing. For clinical situations in which a more precise estim ate of GFR is necessary, consider alternative methods of GFR estimation kohli ch as a 24-hour urine creatinine clearance. Assignment of CKD stage 1-5 for patients with an eGFR near the transition point between stages may be based on clinical assessment of muscle mass and symptoms in addition to eGFR. Specimen Anatomical Collection Method Collection Time Receive d Time (Source) Location / / Volume Laterality Blood 11/03/2021 4:15 AM 2 4:44 EDT AM EDT Resulting Agency Comment Spec In Lab Raul Avilez MD CHEMISTRY ORDERABLES Performing Organization Address City/State/[place] [address] (ABNORMAL) Hemoglobin and Hematocrit, blood (11/01/2021 1:00 PM EDT) athologist Signature Hemoglobin 8.9 (L) 13.7 - [facility] RACIEL 16.5 g/dL [facility] Hematocrit 26.1 (L) 40.5 - [facility] 48.5 % [facility] Specimen Anatomical Collection Method Collection Time Receive d Time (Source) Location / / Volume Laterality Blood 11/01/2021 1:00 PM 2 1:06 EDT PM EDT Resulting Agency Comment Spec In Lab Ava Victor MD HEMATOLOGY ORDERABLES Performing Organization Address City/[facility]/[place] [address] Type and Screen Validity (10/31/2021 4:13 AM EDT) [facility] Method Time Signature T&S only valid [facility] at [facility] Comment: This Type and Screen result is only valid at the [facility] Specimen Anatomical Collection Method Collection Time Receive d Time (Source) Location / / Volume Laterality Blood 10/31/2021 4:13 AM 2 4:33 EDT AM EDT Resulting Agency Comment Spec In Lab Sloane Goodrich MD BLOOD BANK ORDERABLES Performing Organization Address City/State/ZIP Code Phon e Number [address] ABO/Rh Typing (10/31/2021 4:13 AM EDT) athologist Signature ABORh Type A Pos [facility] Specimen Anatomical Collection Method Collection Time Receive d Time (Source) Location / / Volume Laterality Blood 10/31/2021 4:13 AM 2 4:33 EDT AM EDT Resulting Agency Comment Spec In Lab Sloane Goodrich MD BLOOD BANK ORDERABLES Performing Organization Address City/[facility]/[place] [address] Antibody screen (10/31/2021 4:13 AM EDT) [facility] Method Time Signature Ab Screen Negative [facility] LABORATORY Expires at 11/03/2021 KAMALJIT RUBINCK [id number] on: [facility] Specimen Anatomical Collection Method Collection Time Receive d Time (Source) Location / / Volume Laterality Blood 10/31/2021 4:13 AM 4:33 EDT AM EDT Resulting Agency Comment Spec In Lab Sloane Goodrich MD BLOOD BANK ORDERABLES Performing Organization Address City/[facility] Healthcare/[place] [address] EKG 12 Lead (10/30/2021 5:50 PM EDT) Component Value Ref Range Test Analysis Performed Pathologis t Method Time At Signature Ventricular rate 66 BPM MUSE SYSTEM Atrial Rate 66 BPM MUSE SYSTEM P-R Interval 172 ms MUSE SYSTEM QRS Duration 152 ms MUSE SYSTEM Q-T Interval 436 ms MUSE SYSTEM QTC Calculated 457 ms MUSE SYSTEM (Bezet) Calculated P [place] 65 degrees MUSE SYSTEM Calculated R [place] 69 degrees MUSE SYSTEM Calculated T [place] 66 degrees MUSE SYSTEM INTERPRETATION Normal sinus rhythm MUSE SYSTEM Left bundle branch block Abnormal ECG When compared with ECG of 26-APR-2008 07:39, No significant change was found Confirmed by Sienna Tian ([id number]) on 10/31/2021 5:39:51 P M Specimen Anatomical Collection Method Collection Time Receive d Time (Source) Location / / Volume Laterality 10/30/2021 5:50 PM 5:39 EDT PM EDT Sloane Goodrich MD ECG ORDERABLES Performing Organization Address City/State/ZIP Code Phon e Number MUSE SYSTEM UPPER GI ENDOSCOPY (10/30/2021 2:40 PM EDT) Component Value Ref Test Analysis Performed At [facility] gist Range Method Time Signature UPPER GI [facility] ENDOSCOPY Endoscopy Procedure Date: 10/30/2021 2:40 PM ? Patient Name: John Duarte ? Date of : 1955 ? Age: 66 ? Order #: [id number] ? Instrument Name: [id number] ? Procedure: ? Upper GI endoscopy Indications: ? Melena Providers: ? Raul Avilez MD, Carolee ? Julita Isabel RN, ? Mor Fuentes MD: ? Medicines: ? Monitored Anesthesia Care Complications: ? No immediate complications. Procedure: ? Pre-Anesthesia Assessment: ? - Prior to the procedure, a History ? and Physical was performed , and ? patient medications and al lergies ? were reviewed. The patient is ? competent. The risks and b enefits ? of the procedure and the s edation ? options and risks were dis cussed ? with the patient. All ques tions ? were answered and informed consent ? was obtained. Patient ? identification and propose d ? procedure were verified by the ? physician in the pre-proce dure ? area. Mental Status Examin ation: ? alert and oriented. Airway ? Examination: normal oropha ryngeal ? airway and neck mobility. CV ? Examination: normal. Proph ylactic ? Antibiotics: The patient d oes not ? require prophylactic antib iotics. ? Prior Anticoagulants: The patient ? has taken no anticoagulant or ? antiplatelet agents. ASA G rade ? Assessment: III - A patien t with ? severe systemic disease. A fter ? reviewing the risks and be nefits, ? the patient was deemed in ? satisfactory condition to undergo ? the procedure. The anesthe tavo plan ? was to use monitored anest hesia ? care (MAC). Immediately pr ior to ? administration of medicati ons, the ? patient was re-assessed fo r ? adequacy to receive sedati ves. The ? heart rate, respiratory ra te, ? oxygen saturations, blood pressure, ? adequacy of pulmonary vent ilation, ? and response to care were monitored ? throughout the procedure. The ? physical status of the pat ient was ? re-assessed after the proc edure. ? The procedure, indications , ? benefits, risks and altern atives ? were explained to the chiara ent. ? Specifically discussed wer e ? potential complications in cluding, ? but not limited to, joelle bernard, ? perforation, infection, mi ssing a ? cancer, and adverse medica tion ? reactions. The Endoscope w as ? introduced through the phan th, and ? advanced to the second par t of ? duodenum The upper GI endo scopy was ? accomplished without diffi culty. ? The patient tolerated the procedure ? well. ? Findings: ? The esophagus was normal. ? The stomach was normal. ? The examined duodenal bulb was normal. However, just ? at beginning of the C sweep there was an extrinsic ? narrowing of the duodenum medially and we were unable ? to pass distally a colonoscope or gastroscope. ? However, we could visualize erythema and edema beyond ? the stricture likely consistent with malignant tumor ? ingrowth. We then sprayed Hemospray to try and ? control any bleeding from the site. ? Moderate Sedation: ? 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 - Surgical, thoracic and r adiation ? oncology consultations ? Procedure Code(s): ? --- Professional --- ? 39346, Esophagogastroduode noscopy, ? flexible, transoral; diagn ostic, ? including collection of sp ecimen(s) ? by brushing or washing, wh en ? performed (separate proced ure) CPT copyright 2020 [employer]. All rights reserved. The codes documented in this report are preliminary and upon electrolysis investigator review may be revised to meet current compliance requirements. Attending Participation: ? I was present and participated during the entire ? procedure, including non-blackwell portions. ? Raul Avilez MD 10/30/2021 3:24:28 PM This report has been signed electronically. Number of Addenda: 0 Note Initiated On: 10/30/2021 2:40 PM Specimen (Source) Anatomical Collection Method Collection Time Re ceived Time Location / / Volume Laterality 10/30/2021 2:40 PM EDT Unknown GENERAL SURGICAL ORDERABLES Performing Organization Address City/State/ZIP Code Phon e Number PR[facility]ATION ECHOCARDIOGRAM COMPLETE (10/30/2021 1:36 PM EDT) P athologist Signature EF 54 [facility] SYSTEM Specimen (Source) Anatomical Collection Method Collection Time Re ceived Time Location / / Volume Laterality 10/30/2021 12:35 PM EDT Narrative HEARTLAB SYSTEM - 10/30/2021 2:29 PM EDT ? Echocardiogram Report Name: JOHN DUARTE ?Study Date: 10/30/2021 12:35 PMBP: 146/54 mmHg ? Patient Location: 4A 0000 : 1955 ? Height: 163 cm ? Account: [id number] Age: 66 yrs ? Weight: 51 kg Gender: Male ?BSA: 1.5 m2 Ordering Physician: RAUL LUTHER Referring Physician: RAUL LUTHER Performed By: JEAN MARIE Oseguera Reason For Study: Pre Op Exam Location: [facility]. Interpretation Summary 1. The left ventricle is normal in chamb er size and wall thickness. Global LV systolic function is normal with an LVEF of 54% by 3D volumetric assessment. There is are septal wall motion abnormalities most consistent with LBBB. 2. The right ventricle appears normal in size and global systolic function. Estimated PASP is 25mmHg. 3. There is mild bi-atrial dilation. 4. There is at least moderate aortic reg urgitation. 5. See remainder of report for additiona l findings. No prior study available for comparison. Procedure Complete-06302. 3D - 69292. Left ventric ular strain - 0399T. Satisfactory quality. There is normal sinus rhythm. Left Ventricle Left ventricle is of normal size. Wall t hickness is normal. There is no left ventricular outflow tract obstruction. A false tendon is identified. There is no ventricular septal defect. Left ventricu lar systolic function is normal. The left ventricular ejection fraction is 55% by Salvador's biplane. The left ventricular ejection fraction is 54% by 3D volumetri c assessment. Global longitudinal strain is measured at -16.3 % (Epiq). There is abnormal septal motion associated with left bundle branch block. Right Ventricle The right ventricle is of normal size. R ight ventricular systolic function is normal. Left Atrium The left atrium is mildly dilated. 39mL/ m2. There is no evidence for a patent foramen ovale. Right Atrium The right atrium is mildly dilated. 20cm 2. Aortic Valve The aortic valve is mildly thickened. Th e aortic valve is not well visualized. There is no aortic stenosis. There is mo derate aortic regurgitation. PHT is 355ms. Mitral Valve Mild thickening of the mitral leaflets. There is no mitral stenosis. There is mild mitral regurgitation. Tricuspid Valve The tricuspid valve is structurally norm al. There is no tricuspid stenosis. There is trace tricuspid regurgitation. Pulmonic Valve The pulmonic valve is not well visualize d. There is no valvular pulmonic stenosis. There is no pulmonic valve regurgitation . Great Arteries The aortic root is of normal size. No ab normalities are identified. The ascending aorta is not well visualized. The pulmon catherine artery is not well visualized. Venous Inferior vena cava is normal in size. In ferior vena cava collapse greater than 50% with respiration. Pericardium/Pleural There is no pericardial effusion. Hemodynamics The peak right ventricular systolic pres sure is 25 mmHg. The estimated right atrial pressure is 3mmHg. Left ventricul ar filling pressure is indeterminate. Ejection Fraction ?2D Measurem ents ? Volumes EF (HM)_phl: 54.0 % ? IVSd: 0.54 cm ?LA Volume Index: LV Biplane EF: 55.3 % ? LVIDd: 5.0 c m ?L VIDs: 3.3 cm ?38.8 ml/m2 ?L VPWd: 0.75 cm ? RA A4Cs_phl: 14.2 cm2 ? EDV Biplane: 111.0 ml ?L V mass(C)d: 103.4 grams ? EDV Biplane Index: 72.3 ?L V mass(C)dI: 67.4 grams/m2 ?ESV Biplane: 49.6 ml ?A o root diam: 2.6 cm ? ESV Biplane Index: 32.3 ?A o root diam index: 1.7 ?EDV (HM) Index: 105.6 ?L VOT diam: 2.0 cm ? ESV (HM) Index: 48.9 ? SV(LVOT): 70.8 ml ? LV Stroke Volume: 71.0 ml ? SI(LVOT): 46.1 ml/m2 Doppler ?3D/Str ain/TomTec TR max zulma: 232.1 cm/sec ??LV GLS Endo P eak Avg (): - RVSP(TR): 24.6 mmHg ? 16.3 % MV E max zulma: 77.1 cm/sec MV A max zulma: 79.8 cm/sec MV E/A: 0.97 MV dec time: 0.15 sec Lat Peak E' Zulma: 11.6 cm/sec E/ e' (lat): 6.6 Med Peak E' Zulma: 6.1 cm/sec E/e' (med): 12.7 E/e' Average: 9.6 AI P1/2t: 355.0 msec I ?WMSI = 1.25 ? % Normal = 7 5 ?Segments ??Size X - Cannot ?2 - ?4 - ?1-2 ? small Interpret ?1 - Normal ?? Hypokinetic 3 - Akinetic Dyskinetic ?? 3-5 ? moderate 5 - ? 6-14 ?large Aneurysmal ?15-16 ?? diffuse Procedure Note Susie Rodriguez MD - 10/30/2021Formatt ing of this note might be different from the original. Echocardiogram Report Name: JOHN DUARTE Study Date: 10/30 12:35 PMBP: 146/54 mmHg Patient Location: [address] [place] [address] : 1955 Height: 163 cm Account: [id number] Age: 66 yrs Weight: 51 kg Gender: Male BSA: 1.5 m2 Ordering Physician: RAUL LUTHER Referring Physician: RAUL LUTHER Performed By: JEAN MARIE Oseguera Reason For Study: Pre Op Exam Location: [facility]. Interpretation Summary 1. The left ventricle is normal in chamb er size and wall thickness. Global LV systolic function is normal with an LVEF of 54% by 3D volumetric assessment. There is are septal wall motion abnormalities most consistent with LBBB. 2. The right ventricle appears normal in size and global systolic function. Estimated PASP is 25mmHg. 3. There is mild bi-atrial dilation. 4. There is at least moderate aortic reg urgitation. 5. See remainder of report for additiona l findings. No prior study available for comparison. Procedure Complete-11921. 3D - 56801. Left ventric ular strain - 0399T. Satisfactory quality. There is normal sinus rhythm. Left Ventricle Left ventricle is of normal size. Wall t hickness is normal. There is no left ventricular outflow tract obstruction. A false tendon is identified. There is no ventricular septal defect. Left ventricu lar systolic function is normal. The left ventricular ejection fraction is 55% by Salvador's biplane. The left ventricular ejection fraction is 54% by 3D volumetri c assessment. Global longitudinal strain is measured at -16.3 % (Epiq). There is abnormal septal motion associated with left bundle branch block. Right Ventricle The right ventricle is of normal size. R ight ventricular systolic function is normal. Left Atrium The left atrium is mildly dilated. 39mL/ m2. There is no evidence for a patent foramen ovale. Right Atrium The right atrium is mildly dilated. 20cm 2. Aortic Valve The aortic valve is mildly thickened. Th e aortic valve is not well visualized. There is no aortic stenosis. There is mo derate aortic regurgitation. PHT is 355ms. Mitral Valve Mild thickening of the mitral leaflets. There is no mitral stenosis. There is mild mitral regurgitation. Tricuspid Valve The tricuspid valve is structurally norm al. There is no tricuspid stenosis. There is trace tricuspid regurgitation. Pulmonic Valve The pulmonic valve is not well visualize d. There is no valvular pulmonic stenosis. There is no pulmonic valve regurgitation . Great Arteries The aortic root is of normal size. No ab normalities are identified. The ascending aorta is not well visualized. The pulmon catherine artery is not well visualized. Venous Inferior vena cava is normal in size. In ferior vena cava collapse greater than 50% with respiration. Pericardium/Pleural There is no pericardial effusion. Hemodynamics The peak right ventricular systolic pres sure is 25 mmHg. The estimated right atrial pressure is 3mmHg. Left ventricul ar filling pressure is indeterminate. Ejection Fraction 2D Measurements Volume s EF (HM)_phl: 54.0 % IVSd: 0.54 cm LA Vol ume Index: LV Biplane EF: 55.3 % LVIDd: 5.0 cm LVIDs: 3.3 cm 38.8 ml/m2 LVPWd: 0.75 cm RA A4Cs_phl: 14.2 cm2 EDV Biplane: 111.0 ml LV mass(C)d: 103.4 grams EDV Biplane In dex: 72.3 LV mass(C)dI: 67.4 grams/m2 ESV Biplane : 49.6 ml Ao root diam: 2.6 cm ESV Biplane Index: 32.3 Ao root diam index: 1.7 EDV (HM) Index: 105.6 LVOT diam: 2.0 cm ESV (HM) Index: 48.9 SV(LVOT): 70.8 ml LV Stroke Volume: 71.0 ml SI(LVOT): 46.1 ml/m2 Doppler 3D/Strain/TomTec TR max zulma: 232.1 cm/sec LV GLS Endo Pea k Avg (): - RVSP(TR): 24.6 mmHg 16.3 % MV E max zulma: 77.1 cm/sec MV A max zulma: 79.8 cm/sec MV E/A: 0.97 MV dec time: 0.15 sec Lat Peak E' Zulma: 11.6 cm/sec E/ e' (lat): 6.6 Med Peak E' Zulma: 6.1 cm/sec E/e' (med): 12.7 E/e' Average: 9.6 AI P1/2t: 355.0 msec I WMSI = 1.25 % Normal = 75 Segments Size X - Cannot 2 - 4 - 1-2 small Interpret 1 - Normal Hypokinetic 3 - Thor netic Dyskinetic 3-5 moderate 5 - 6-14 large Aneurysmal 15-16 diffuse Raul Luther MD ECHO ORDERABLES Performing Organization Address City/State/ZIP Code Phon e Number HEARTLAB SYSTEM Pulmonary Function Testing (10/28/2021 6:59 AM EDT) P athologist Signature FVC Actual 3.54 L COMPAS PFT Pre-BD FVC Pre-BD % of 101 % COMPAS PFT Predicted FVC Predicted 3.52 L COMPAS PFT FVC Pre-BD 0.04 COMPAS PFT Z-Score FVC Lower 2.63 L COMPAS PFT Limits of Normal FEV1 Actual 2.14 L COMPAS PFT Pre-BD FEV1 Pre-BD % 78 % COMPAS PFT of Predicted FEV1 Predicted 2.73 L COMPAS PFT FEV1 Pre-BD -1.33 COMPAS PFT Z-Score FEV1 Lower 1.99 L COMPAS PFT Limits of Normal FEV1 / FVC 60 % COMPAS PFT Actual Pre-BD FEV1/FVC Pre-BD -2.08 COMPAS PFT Z-Score FEV1 / FVC LLN 64 % COMPAS PFT [id number] Actual 0.87 L/s COMPAS PFT Pre-BD [id number] Pre-BD 39 % COMPAS PFT % of Predicted [id number] 2.23 L/s COMPAS PFT Predicted [id number] Pre-BD -1.88 COMPAS PFT Z-Score DLCO Hb Actual 5.82 mL/min/mmHg COMPAS PFT Pre-BD DLCO Hb Pre-BD 27 % COMPAS PFT % of Predicted DLCO Hb Pre-BD -6.00 COMPAS PFT Z-Score DLCO Hb 21.85 mL/min/mmHg COMPAS PFT Predicted DLCO UNC ACT 4.61 mL/min/mmHg COMPAS PFT PRE-BD DLCO UNC PRE-BD 21 % COMPAS PFT % of PRED DLCO UNC PRE-BD -6.77 % COMPAS PFT Z-SCORE DLCO UNC 21.85 mL/min/mmHg COMPAS PFT Predicted DLCO/VA Actual 1.12 mL/min/mmHg COMPAS PFT Pre-BD /L DLCO/VA Pre-BD 26 % COMPAS PFT % of Predicted DLCO/VA Pre-BD -5.53 COMPAS PFT Z-Score DLCO/VA 4.24 mL/min/mmHg COMPAS PFT Predicted /L Specimen (Source) Anatomical Location Collection Method / Collectio n Time Received Time / Laterality Volume Narrative COMPAS PFT - 10/28/2021 6:59 AM EDT FINDINGS: FEV1 and FVC are normal, FEV1/VC is reduced. Diffusion capacity is reduced even when adjusted for hemoglobin of 8.9 g/dL. IMP RESSION: Mild obstructive defect with marked reduction in diffusing capacity, suggestive of emp hysema. Procedure Note NEW, GLATT - 10/28/2021Formatting of thi s note might be different from the original. FINDINGS: FEV1 and FVC are normal, FEV1/ VC is reduced. Diffusion capacity is reduced even when adjusted for hemoglobin of 8.9 g/dL. IMP RESSION: Mild obstructive defect with marked reduction in diffusing capacity, suggestive of emp hysema. Raul Luther MD PFT ORDERABLES Performing Organization Address City/State/ZIP Code Phon e Number [facility] PFT SCAN DOC: MRI/MRA (10/27/2021 12:00 AM EDT) Narrative This result has an attachment that is no t available. Unknown MEDIA MGR SCAN EXT ORDR/RSLT Film Library- Storage Only MR Abdomen (10/22/2021 12:00 AM EDT) Specimen (Source) Anatomical Location Collection Method / Collectio n Time Received Time / Laterality Volume Narrative RAD - 10/27/2021 2:42 PM EDT This exam is auto-finalizing. It's purpo se is for storage only. William PAVON IMG FILM LIBRARY ORDERABLES Performing Organization Address City/State/ZIP Code Phon e Number RAD [place], [place] Direct antiglobulin test (10/21/2021 2:14 PM EDT) P athologist Signature JUVENAL Negative [facility] Specimen Anatomical Collection Method Collection Time Receive d Time (Source) Location / / Volume Laterality Blood 10/21/2021 2:14 PM 2:19 EDT PM EDT Resulting Agency Comment Spec In Lab Eric Streeter MD BLOOD BANK ORDERABLES Performing Organization Address City/State/ZIP Code Phon [place] [address] Chest w Contrast (10/21/2021 1:42 PM EDT) Anatomical Region Laterality Modality Chest Computed Tomography Specimen (Source) Anatomical Collection Method Collection Time Re ceived Time Location / / Volume Laterality 10/21/2021 1:59 PM EDT Impressions 10/21/2021 3:46 PM EDT 1. ??Bilateral sub-6 mm solid nodules. ? ?These are indeterminant; while small nodules noted this size are statisticall y of a post infectious or inflammatory process, in the setting of a primary mal ignancy, metastatic disease cannot be excluded. ??If there are CT examinations available prior to 06/07/2021, comparison could be made to evaluate for stability. 2. ??No lymphadenopathy. 3. ??New partially visualized perihepati c ascites. I have personally reviewed the image(s) and the resident's interpretation and agree with the findings, Nelson Cotton at 10/21/2021 3:46 PM Thank you for letting us participate in the care of this patient. ??If you are a health care provider and have any questi ons regarding this report, please contact the number below. ??For patients who have questions please contact the health group care worker that requested your imaging first. ? Narrative 10/21/2021 3:46 PM EDT EXAMINATION: CT CHEST W CONTRAST CLINICAL HISTORY: pancreatic head cancer staging TECHNIQUE: 3.75 mm thick axial contiguou s sections were obtained through the chest via helical acquisition after the intravenous administration of contrast, Administered 50.0 ml of OMNIPAQUE 240.00 mg/ml. Thin-section reconstructions as well as coronal and sagittal reformatted images were generated. COMPARISON: CT abdomen and pelvis FINDINGS: Pulmonary parenchyma: Sub-4 mm nodule in the right upper lobe (axial series 5, image 146). 5 mm nodule in the right middle lobe. Round 5 mm solid nodule in the posterior right lower lobe, present on prior CT from 09/30/2021, excluded from field-of-v iew 06/07/2021 CT. 4 mm nodule along the right horizontal f issure (axial series 5, image 304), unchanged from most recent CT. 4 mm nodule in the peripheral left lower lobe (axial series 5, image 329). Emphysematous changes most evident at th e apices and bases. Right middle and left lower lobe scarring. Airways: Central and segmental airways a re patent Pleura: Thickening of the right horizont al fissure. No pleural fluid Lymph nodes: No pathologically enlarged lymph nodes. Heart, pericardium, and great vessels: R ight chest port with tip terminating at the mid SVC. Normal cardiac size no yvonne cardial fluid. Other mediastinal structures: No signifi cant findings. Lower neck: No significant findings. Upper abdomen: Intrahepatic biliary dila tation, decreased from prior. ??Interval placement of a CBD stent. ??Persistent p ancreatic ductal dilatation. ??There is perihepatic ascites, and new as compared to prior. Body wall soft tissues: No significant f indings. Skeletal structures: No acute fracture o r destructive osseous lesion. Multilevel degenerative changes of the spine.. Procedure Note Jaron Stallings, DO - 10/21/2021Formatti ng of this note might be different from the original. EXAMINATION: CT CHEST W CONTRAST CLINICAL HISTORY: pancreatic head cancer staging TECHNIQUE: 3.75 mm thick axial contiguou s sections were obtained through the chest via helical acquisition after the intravenous administration of contrast, Administered 50.0 ml of OMNIPAQUE 240.00 mg/ml. Thin-section reconstructions as well as coronal and sagittal reformatted images were generated. COMPARISON: CT abdomen and pelvis 7/12/2 022 FINDINGS: Pulmonary parenchyma: Sub-4 mm nodule in the right upper lobe (axial series 5, image 146). 5 mm nodule in the right middle lobe. Round 5 mm solid nodule in the posterior right lower lobe, present on prior CT from 09/30/2021, excluded from field-of-v iew 06/07/2021 CT. 4 mm nodule along the right horizontal f issure (axial series 5, image 304), unchanged from most recent CT. 4 mm nodule in the peripheral left lower lobe (axial series 5, image 329). Emphysematous changes most evident at th e apices and bases. Right middle and left lower lobe scarring. Airways: Central and segmental airways a re patent Pleura: Thickening of the right horizont al fissure. No pleural fluid Lymph nodes: No pathologically enlarged lymph nodes. Heart, pericardium, and great vessels: R ight chest port with tip terminating at the mid SVC. Normal cardiac size no yvonne cardial fluid. Other mediastinal structures: No signifi cant findings. Lower neck: No significant findings. Upper abdomen: Intrahepatic biliary dila tation, decreased from prior. Interval placement of a CBD stent. Persistent lees creatic ductal dilatation. There is perihepatic ascites, and new as compared to prior. Body wall soft tissues: No significant f indings. Skeletal structures: No acute fracture o r destructive osseous lesion. Multilevel degenerative changes of the spine.. IMPRESSION 1. Bilateral sub-6 mm solid nodules. The se are indeterminant; while small nodules noted this size are statisticall y of a post infectious or inflammatory process, in the setting of a primary mal ignancy, metastatic disease cannot be excluded. If there are CT examinations a vailable prior to 06/07/2021, comparison could be made to evaluate for stability. 2. No lymphadenopathy. 3. New partially visualized perihepatic ascites. I have personally reviewed the image(s) and the resident's interpretation and agree with the findings, Nelson Cotton at 10/21/2021 3:46 PM Thank you for letting us participate in the care of this patient. If you are a health care provider and have any questi ons regarding this report, please contact the number below. For patients w ho have questions please contact the health group care worker that requested your imaging first. Electronically signed by: Jaron Stallings DO, [facility] ([phone]), at 10/21/2021 3:46 PM Humberto Dumont MD [facility] CT ORDERABLES DPYD PCR (10/21/2021 12:15 PM EDT) Component Value Ref Test Analysis Performed At [facility] Range Method Time Signature DPYD PCR INDICATION FOR STUDY: DPYD Genotyping KAMALJIT [place] RESULTS: Normal metabolizer, *1/*1 genotype [facility] INTERPRETATION: ??Normal gen otype, with normal expected enzyme activity. Absence LABORATORY of a variant does not rule out the possibility o f an undetected polymorphism. This result does not replace the need for therapeutic drug o r clinical monitoring. METHODS: The DPYD genotyping assay tested for the presence of the following three variants using a TaqMan allelic discrimination assay and detection of normal and mutant probes for each varian t: DPYD*2A ??(c.1905+1G>A, [id number]), DPYD*13 (c.1679T>G , [id number]), and DP YD c.2846A>T ([id number]). All variant positions are provided on the canonical transcri pt (NM_[id number]). Genomic DNA was isolated from the submitted peripheral blood speci men. Real-time PCR was performed to amplify a short region spanning the variant site, and genotyping was performed by allelic discrimination using a mixture of f luorescently labeled probes, one of which is specific to the reference sequence, the other specific to the variant target. LIMITATIONS AND DISCLAIMERS: ??Although unlikely, rare variants or polymorphisms (known or unknown) have the potential to interfere with the performance of this test, producing false negative or false positive results. ??When genotyping results are not consistent with other clinical observa tions or test results, additional testing should be considered. This test was developed and its performance determined by the laboratory for [facility] ([facility]) at the [facility]. It has not been cleared or approved by the U .S. Food and Drug Administration. The laboratory is regulated under CLIA as qual ified to perform high-complexity testing. This test is used for clinical purposes. It should not be regarded as investigational or for research. REFERENCES: 1. CPIC?? Guideline for Fluoropyrimidines and DPYD. https:// cpicpgx.org/ 2. Stalin et al., Clinical Pharmacogenetics Imp lementation Consortium (CPIC) Guideline for Dihydropyrimidine Dehydrogenase Genotype and Fluoropyrimidine Dosin Update. Clin Pharmacol Ther. 2018 Apr;103(2):21 0-216. PMID: 69093403 3. Alesia Shabazz, Mel Thrasher, et al. Fluorouracil Ther apy and DPYD Genotype. In: Medical Genetics Summaries [Internet]. B jose TRAN): [employer]ion (); 2011? 2015 3. PMID: [id number] Specimen Anatomical Collection Method Collection Time Receive d Time (Source) Location / / Volume Laterality Blood 10/21/2021 12:15 10/21/2021 1:57 PM EDT PM EDT Resulting Agency Comment Spec In Lab Eric Streeter MD CHEMISTRY ORDERABLES Performing Organization Address City/[facility]/[place] [address] Scan, Peripheral Blood (10/21/2021 12:15 PM EDT)Only the most recent of2 results within the time period is included. Patholo gist Method Time Signature Plat Estimate Normal [facility] RBC Morphology Abnormal [facility] Macrocytes 6-10 /HPF [facility] Polychromasia Present >5/HPF [facility] Stippled RBCs Present >1/HPF [facility] Specimen Anatomical Collection Method Collection Time Receive d Time (Source) Location / / Volume Laterality Blood Venous Draw / 10/21/2021 12:15 10/21/2021 Unknown PM EDT 12:22 PM EDT Resulting Agency Comment Spec In Lab Eric Streeter MD HEMATOLOGY ORDERABLES Performing Organization Address City/[facility]/[place] [address] (ABNORMAL) Iron and TIBC (10/21/2021 12:15 PM EDT) Analysis Performed At Patho logist Time Signature Iron 63 45 - 160 [facility] mcg/dL [facility] TIBC 167 (L) 250 - 450 [facility] mcg/dL [facility] Iron Saturation 38 20 - 50 % [facility] Specimen Anatomical Collection Method Collection Time Receive d Time (Source) Location / / Volume Laterality Blood Venous Draw / 10/21/2021 12:15 10/21/2021 Unknown PM EDT 12:26 PM EDT Resulting Agency Comment Spec In Lab Eric Streeter MD CHEMISTRY ORDERABLES Performing Organization Address City/[facility]/ZIP Code Phon e Number [address] (ABNORMAL) Carbohydrate Antigen 19-9 (10/21/2021 12:15 PM EDT)Only the most recent of2 resultswithin the time period is included. P athologist Signature CA 19-9 >72656.0 <=35.0 [facility] (H) u/ml [facility] Comment: This result was generated using a Fili Farhan immunoassay. ??Results obtained from other methods or manufacturers hermelinda ot be used interchangeably with this method. Specimen Anatomical Collection Method Collection Time Receive d Time (Source) Location / / Volume Laterality Blood 10/21/2021 12:15 10/21/2021 PM EDT 12:22 PM EDT Resulting Agency Comment Spec In Lab Eric Streeter MD CHEMISTRY ORDERABLES Performing Organization Address City/[facility]/[place] [address] (ABNORMAL) Reticulocyte Count (10/21/2021 12:15 PM EDT) Patholo gist Method Time Signature Retic Ct % 5.7 (H) 0.7 - 2.6 [facility] % [facility] Retic Ct Abs 0.130 (H) 0.030 - [facility] 0.120 [facility] x10(6)/[facility] L LABORATORY Immature Retic% 30.3 (H) 0.0 - [facility] 15.6 % [facility] Reticulated Hgb 40.9 (H) 31.3 - [facility] 40.2 pg [facility] Specimen Anatomical Collection Method Collection Time Receive d Time (Source) Location / / Volume Laterality Blood Venous Draw / 10/21/2021 12:15 10/21/2021 Unknown PM EDT 12:22 PM EDT Resulting Agency Comment Spec In Lab Eric Streeter MD HEMATOLOGY ORDERABLES Performing Organization Address City/[facility]/[place] [address] (ABNORMAL) Lactate Dehydrogenase (10/21/2021 12:15 PM EDT) athologist Signature LDH 370 (H) 110 - 220 KAMALJIT AMBRIZCOCK unit/L [facility] Specimen Anatomical Collection Method Collection Time Receive d Time (Source) Location / / Volume Laterality Blood Venous Draw / 10/21/2021 12:15 10/21/2021 Unknown PM EDT 12:26 PM EDT Resulting Agency Comment Spec In Lab Eric Streeter MD CHEMISTRY ORDERABLES Performing Organization Address City/[facility]/[place] [address] (ABNORMAL) Haptoglobin (10/21/2021 12:15 PM EDT) athologist Signature Haptoglobin 227 (H) 30 - 200 KAMALJIT BENNETTRACIEL mg/dL [facility] Comment: Haptoglobin concentrations in newborns i s low to undetectable; however, adult concentrations are usually attained by 4 months of age. ??No sex-related differences for haptoglobin have been de tected. Specimen Anatomical Collection Method Collection Time Receive d Time (Source) Location / / Volume Laterality Blood Venous Draw / 10/21/2021 12:15 10/21/2021 Unknown PM EDT 12:26 PM EDT Resulting Agency Comment Spec In Lab Eric Streeter MD CHEMISTRY ORDERABLES Performing Organization Address City/[facility]/ZIP Code Phon e Number [address] Folate, serum (10/21/2021 12:15 PM EDT) athologist Signature Folate Lvl 14.6 4.8 - 24.2 KAMALJIT BENNETTRACIEL ng/mL [facility] Specimen Anatomical Collection Method Collection Time Receive d Time (Source) Location / / Volume Laterality Blood Venous Draw / 10/21/2021 12:15 10/21/2021 Unknown PM EDT 12:26 PM EDT Resulting Agency Comment Spec In Lab Eric Streeter MD CHEMISTRY ORDERABLES Performing Organization Address City/[facility]/ZIP Code Phon e Number [address] (ABNORMAL) Ferritin (10/21/2021 12:15 PM EDT) athologist [facility] Ferritin 698 (H) 30 - 400 KAMALJIT RACIEL ng/mL [facility] Comment: Pediatric reference ranges not verified at [facility], interpret with caution. Reference ranges for females greater wilson n 50 years of age approach values for men, i.e., 30-400 ng/mL. Specimen Anatomical Collection Method Collection Time Receive d Time (Source) Location / / Volume Laterality Blood Venous Draw / 10/21/2021 12:15 10/21/2021 Unknown PM EDT 12:26 PM EDT Resulting Agency Comment Spec In Lab Eric Streeter MD CHEMISTRY ORDERABLES Performing Organization Address City/[facility]/[place] [address] Vitamin B12 (10/21/2021 12:15 PM EDT) athologist [facility] Vitamin B-12 984 232 - 1,245 [facility] pg/mL [facility] Specimen Anatomical Collection Method Collection Time Receive d Time (Source) Location / / Volume Laterality Blood Venous Draw / 10/21/2021 12:15 10/21/2021 Unknown PM EDT 12:26 PM EDT Resulting Agency Comment Spec In Lab Eric Streeter MD CHEMISTRY ORDERABLES Performing Organization Address City/State/[place] [address] (ABNORMAL) Comprehensive metabolic panel (non-fasting) (10/21/2021 12:15 PM EDT) athologist [facility] Glucose Lvl 164 65 - 199 [facility] mg/dL [facility] Comment: Diabetes: >=200 mg/dL plus symp toms BUN 13 10 - 20 mg/dL [facility] Creatinine 0.69 (L) 0.80 - 1.50 mg/dL [facility] Sodium 138 135 - 145 mmol/L [facility] Potassium 4.1 3.5 - 5.0 mmol/L [facility] Comment: Please note: ??Patients with WBC >100,00 0 may have falsely elevated Potassium levels. ??For accurate Potassium quantif ication in these patients send serum separator tube (gold top) for subsequent determinations. ??Contact the Clinical Chemistry Laboratory if there are any qu estions. Chloride 103 98 - 107 mmol/L [facility] CO2 26 22 - 31 mmol/L [facility] Anion Gap 9 5 - 15 mmol/L [facility] Calcium 8.4 (L) 8.5 - 10.5 mg/dL [facility] Total Protein 6.5 6.1 - 8.0 g/dL [facility] Albumin 3.0 (L) 3.2 - 5.2 g/dL [facility] AST 72 (H) 0 - 39 unit/L [facility] ALT 70 (H) 0 - 55 unit/L [facility] Alk Phos 672 (H) 40 - 130 unit/L [facility] Total Bilirubin 3.5 (H) 0.2 - 1.3 mg/dL [facility] Estimated GFR 101 >=60 mL/min/1.73 m?? [facility] Comment: This patient's estimated GFR was calcula jeffy using the 2020 CKD-EPI equation. The estimated GFR can vary from the [place] ured GFR by up to 30% in the absence of rapidly changing kidney function. Assess ment of the estimated GFR is not appropriate when creatinine concentratio ns are rapidly changing. For clinical situations in which a more precise estim ate of GFR is necessary, consider alternative methods of GFR estimation kohli ch as a 24-hour urine creatinine clearance. Assignment of CKD stage 1-5 for patients with an eGFR near the transition point between stages may be based on clinical assessment of muscle mass and symptoms in addition to eGFR. Specimen Anatomical Collection Method Collection Time Receive d Time (Source) Location / / Volume Laterality Blood 10/21/2021 12:15 10/21/2021 PM EDT 12:22 PM EDT Resulting Agency Comment Spec In Lab Eric Streeter MD CHEMISTRY ORDERABLES Performing Organization Address City/State/ZIP Code Ph[place] [address] Non-Hyster Driver Final Report (10/17/2021 11:37 AM EDT)Only the most recent of2 results within the time period is included. Component Value Ref Test Analysis Performed At [facility] gist Range Method Time Signature Non-Hyster Driver [id number] ? Location: [facility] Final Report AILEY The signing pathologist has (i) examined the relevant preparation(s) for the [facility] specimen(s) and (ii) rendered or confirmed the diagnosis(es) . HOSPITAL LABORATORY . ? No n-Hyster Driver Final DIAGNOSIS Atypical Electronically signed by: ?Geraldo PETERSON, Brittaney Verified: ??10/21/2021 13:27 ??Pathologist Performed at: ??-[facility] Dept. of Pathology, [place], [place] DISCUSSION Ascites: Rare atypical cells with immunoreactivit y for monoclonal CEA are noted, cannot exclude malignancy/metastatic adenocarcinoma. Mesothelial cells, and mixed leukocytes are also seen. --- Immunohistochemistry Studies --- Interpretation: The atypical cells are positive for ?? m onoclonal CEA. ??The MOC31 stain shows considerable background staining and is inconclusive. ? Immunohistochemical a ssays were performed (on paraffin-embedded cell block sections fixed in 10% neutr al buffered formalin for 6-72 hours) using the polymer technique with appropriate controls. The sections are studied for ? calretinin, monoclonal CEA, and MOC31 ??. These immunohistochemical st udies provide ancillary information and are used only in conjunction with standard diagnostic procedures. (Cell block was examined.) CLINICAL INFORMATION Specimen Source : Ascites Pertinent Clinical Data and Significant Therapy: Pancreas cancer; question malignant cells Clinical Impression : Pancreas cancer Pertinent Radiologic Findings ??: (not provided) Gross Description: Received ??fresh, approximately 30 mL to judith volume of ?? cloudy, yellow fluid. Total Preparation: Liquid-Based Prep 1; Cell Block 1. Specimen (Source) Anatomical Collection Method Collection Time Re ceived Time Location / / Volume Laterality 10/17/2021 11:37 AM EDT Scooby Stevens MD PATHOLOGY/CYTOLOGY ORDERABLE S Performing Organization Address City/[facility]/ZIP Code Phon e Number [address] Cytopathology Non-Gynecological (10/17/2021 11:37 AM EDT)Only the most recent of 2 resultswithin the time period is included. Specimen Anatomical Collection Method Collection Time Receive d Time (Source) Location / / Volume Laterality AP Specimen 10/17/2021 11:37 10/17/2021 AM EDT 11:[address] [facility] - 10/17/2021 11:37 AM EDT Specimen requisition ordered. ??Separate Pathology report to follow Scooby Stevens MD PATHOLOGY/CYTOLOGY ORDERABLE S Performing Organization Address City/[facility]/ZIP Code Phon e Number [address] XR Fluoro No Rad <1Hr - OR Use (10/17/2021 11:20 AM EDT) Specimen (Source) Anatomical Location Collection Method / Collectio n Time Received Time / Laterality Volume Narrative Dicom, Auditing User - 10/17/2021 11:20 AM EDT This exam is auto-finalizing. No interpr etation was done. Scooby Stevens MD IMG FLUORO ORDERABLES XR ERCP (10/07/2021 1:02 PM EDT) Specimen (Source) Anatomical Location Collection Method / Collectio n Time Received Time / Laterality Volume Narrative [facility] - 10/07/2021 1:03 PM EDT See PACS for result report. Humberto Dumont MD IMG FILM LIBRARY ORDERABLES Performing Organization Address City/[facility]/ZIP Code Phon e Number RAD RAD [place], [place] ERCP (10/07/2021 9:42 AM EDT) [facility] Method Time Signature ERCP [facility] Endoscopy Procedure Date: 10/07/2021 9:42 AM ? Patient Name: John Duarte ? Date of : 1955 ? Age: 66 ? Order #: [id number] ? Instrument Name: [id number] ? Procedure: ? ERCP Indications: ? Jaundice Providers: ? Julita Lee ? HENRIETTA Burleson, Dali Reyna is, ? Starr Watts, Mor Banks MD: ?LIBRADO Ribeiro Medicines: ? General Anesthesia Complications: ? No immediate complications. Procedure: ? Pre-Anesthesia Assessment: ? - Prior to the procedure, a History ? and Physical was performed , and ? patient medications and al lergies ? were reviewed. The patient is ? competent. The risks and b enefits ? of the procedure and the s edation ? options and risks were dis cussed ? with the patient. All ques tions ? were answered and informed consent ? was obtained. Patient ? identification and propose d ? procedure were verified by the ? physician in the pre-proce dure ? area. Mental Status Examin ation: ? alert and oriented. Airway ? Examination: normal oropha ryngeal ? airway and neck mobility. ? Respiratory Examination: c lear to ? auscultation. CV Examinati on: ? normal. Prophylactic Antib iotics: ? The patient does not requi re ? prophylactic antibiotics. Prior ? Anticoagulants: The patien t has ? taken no anticoagulant or ? antiplatelet agents. ASA G rade ? Assessment: III - A patien t with ? severe systemic disease. A fter ? reviewing the risks and be nefits, ? the patient was deemed in ? satisfactory condition to undergo ? the procedure. The anesthe tavo plan ? was to use general anesthe tavo. ? Immediately prior to admin istration ? of medications, the patien t was ? re-assessed for adequacy t o receive ? sedatives. The heart rate, ? respiratory rate, oxygen ? saturations, blood pressur e, ? adequacy of pulmonary vent ilation, ? and response to care were monitored ? throughout the procedure. The ? physical status of the pat ient was ? re-assessed after the proc edure. ? The procedure, indications , ? benefits, risks and altern atives ? were explained to the chiara ent. ? Specifically discussed wer e ? potential complications in cluding, ? but not limited to, joelle bernard, ? perforation, infection, ? pancreatitis, missing a ca ncer, and ? adverse medication reactio ns.The ? Duodenoscope was introduce d through ? the mouth, and advanced to the ? duodenum where it was used to ? inject contrast into and u sed to ? locate the major papilla. The ? patient tolerated the proc edure ? well. ? Findings: ? The auto parts salesperson film was normal. The esophagus was ? successfully intubated under direct vision. The scope ? was advanced to a normal major papilla in the ? descending duodenum without detailed examination of ? the pharynx, larynx and associated structures, and ? upper GI tract. The upper GI tract was grossly ? normal. The bile duct was deeply cannulated with the ? short-nosed traction sphincterotome. Contrast was ? injected. I personally interpreted the bile duct ? images. There was brisk flow of contrast through the ? ducts. Image quality was excellent. Contrast extended ? to the hepatic ducts. There was a severe stricture of ? the distal common ronel duct. A 0.035 inch x 260 cm ? straight Dreamwire was passed into the biliary tree. ? Biliary sphincterotomy was made with a monofilament ? traction (standard) sphincterotome using ERBE ? electrocautery. There was no post-sphincterotomy ? bleeding. I was unable o traverse the stricture with ? a biliary extraction balloon. I was unable to ? traverse the stricture with a biliary dilating ? balloon. I was eventually able to traverse the ? stricture with a 5 Fr dilating catheter; however, ? even after dilation I was unable to traverse the ? stricture with a dilating balloon. I was unable to ? traverse the stricture with a 10 mm x 6 cm uncovered ? metal stent. I was eventually able to traverse the ? stricture with a 6 mm by 6 cm uncovered metal Zilver ? stent. Bile flowed through the stent. ? Moderate Sedation: ? Not applicable - See Anesthesia documentation Impression: ?- Severe distal common bile monica t ? stricture, ? - A biliary sphincterotomy was ? performed. ? - Technically difficult to traverse ? stricture, ultimately sten jeffy with ? a 6 mm x 6 cm undercover m etal ? Zilver stent after dilatio n with a ? biliary dilator to 5 Fr. Recommendation: ?- Discharge patient to home. ? - Clear liquid diet for 2 hours ? - CT chest, Ca 19-9 ? - Medical and surgical onc ology ? referrals ? Procedure Code(s): ? --- Professional --- ? 48485, Esophagogastroduode noscopy, ? flexible, transoral; diagn ostic, ? including collection of sp ecimen(s) ? by brushing or washing, wh en ? performed (separate proced ure) Diagnosis Code(s): ? --- Professional --- ? R17, Unspecified jaundice ? K83.1, Obstruction of bile duct ? --- Technical --- ? R17, Unspecified jaundice ? K83.1, Obstruction of bile duct CPT copyright 2020 [employer]. All rights reserved. The codes documented in this report are preliminary and upon electrolysis investigator review may be revised to meet current compliance requirements. Attending Participation: ? I personally performed the entire procedure. ? Humberto Dumont, 10/07/2021 12:33:53 PM Number of Addenda: 0 Note Initiated On: 10/07/2021 9:42 AM Specimen (Source) Anatomical Collection Method Collection Time Re ceived Time Location / / Volume Laterality 10/07/2021 9:42 AM EDT William PAVON GENERAL SURGICAL ORDERABLES Performing Organization Address City/State/ZIP Code Phon e Number [facility] UPPER EUS-ENDOSCOPIC ULTRASOUND (10/07/2021 9:41 AM EDT) Component Value Ref Test Analysis Performed At [facility] Method Time Signature UPPER [facility] ENDOSCOPIC Endoscopy ULTRASOUND _ Procedure Date: 10/07/2021 9:41 AM ? Patient Name: John Duarte ? Date of : 1955 ? Age: 66 ? Order #: [id number] ? Instrument Name: [id number] ? Procedure: ? Upper EUS Indications: ? Suspected solid pancreatic neopl asm Providers: ? Julita Lee ? Benjy, RN, Dali Maribell is, ? Starr Watts, Mor magana Referring MD: ?LIBRADO Ribeiro Medicines: ? General Anesthesia Complications: ? No immediate complications. Procedure: ? Pre-Anesthesia Assessment: ? - Prior to the procedure, a History ? and Physical was performed , and ? patient medications and al lergies ? were reviewed. The patient is ? competent. The risks and b enefits ? of the procedure and the s edation ? options and risks were dis cussed ? with the patient. All ques tions ? were answered and informed consent ? was obtained. Patient ? identification and propose d ? procedure were verified by the ? physician in the pre-proce dure ? area. Mental Status Examin ation: ? alert and oriented. Airway ? Examination: normal oropha ryngeal ? airway and neck mobility. ? Respiratory Examination: c lear to ? auscultation. CV Examinati on: ? normal. Prophylactic Antib iotics: ? The patient does not requi re ? prophylactic antibiotics. Prior ? Anticoagulants: The patien t has ? taken no anticoagulant or ? antiplatelet agents. ASA G rade ? Assessment: III - A patien t with ? severe systemic disease. A fter ? reviewing the risks and be nefits, ? the patient was deemed in ? satisfactory condition to undergo ? the procedure. The anesthe tavo plan ? was to use general anesthe tavo. ? Immediately prior to admin istration ? of medications, the patien t was ? re-assessed for adequacy t o receive ? sedatives. The heart rate, ? respiratory rate, oxygen ? saturations, blood pressur e, ? adequacy of pulmonary vent ilation, ? and response to care were monitored ? throughout the procedure. The ? physical status of the pat ient was ? re-assessed after the proc edure. ? The procedure, indications , ? benefits, risks and altern atives ? were explained to the chiara ent. ? Specifically discussed wer e ? potential complications in cluding, ? but not limited to, joelle bernard, ? perforation, infection, mi ssing a ? cancer, and adverse medica tion ? reactions.The Endosonoscop e was ? introduced through the phan , and ? advanced to the second par t of ? duodenum. The patient juan rated the ? procedure well. ? Findings: ? ENDOSCOPIC FINDING: : ? LA Grade B (one or more mucosal breaks greater than 5 ? mm, not extending between the tops of two mucosal ? folds) esophagitis was found at the gastroesophageal ? junction. ? The entire examined stomach was normal. ? One non-bleeding cratered duodenal ulcer with no ? stigmata of bleeding was found in the first portion ? of the duodenum. ? ENDOSONOGRAPHIC FINDING: : ? A round mass was identified in the pancreatic head. ? The mass was hypoechoic. The mass measured 20 mm by ? 19 mm in maximal cross-sectional diameter. The ? endosonographic borders were poorly-defined. The ? remainder of the pancreas was examined. The ? endosonographic appearance of parenchyma and the ? upstream pancreatic duct indicated duct dilation. ? Fine needle biopsy was performed. Color Doppler ? imaging was utilized prior to needle puncture to ? confirm a lack of significant vascular structures ? within the needle path. Four passes were made with ? the 22 gauge ultrasound biopsy needle using a ? transduodenal approach. A visible core of tissue was ? obtained. The cellularity of the specimen was ? adequate. Final cytology results are pending. ? There was dilation in the common bile duct which ? measured up to 13 mm. ? Moderate Sedation: ? Not applicable - See Anesthesia documentation Impression: ?- LA Grade B esophagitis. ? - Normal stomach. ? - Non-bleeding duodenal ul cer with ? no stigmata of bleeding. ? - A mass was identified in the ? pancreatic head. Fine need le biopsy ? performed. ? - There was dilation in th e common ? bile duct which measured u p to 13 ? mm. Recommendation: ?- Perform an ERCP. ? - Await pathology results. ? - PPI daily and avoid NSAI Ds ? Procedure Code(s): ? --- Professional --- ? 85462, Esophagogastroduode noscopy, ? flexible, transoral; with ? transendoscopic ultrasound -guided ? intramural or transmural f ine ? needle aspiration/biopsy(s ), ? (includes endoscopic ultra sound ? examination limited to the ? esophagus, stomach or duod enum, and ? adjacent structures) Diagnosis Code(s): ? --- Professional --- ? K83.8, Other specified dis eases of ? biliary tract ? K86.89, Other specified di seases of ? pancreas ? K20.90, Esophagitis, unspe cified ? without bleeding ? K26.9, Duodenal ulcer, uns pecified ? as acute or chronic, witho ut ? hemorrhage or perforation ? --- Technical --- ? K83.8, Other specified dis eases of ? biliary tract ? K86.89, Other specified di seases of ? pancreas ? K20.90, Esophagitis, unspe cified ? without bleeding ? K26.9, Duodenal ulcer, uns pecified ? as acute or chronic, witho ut ? hemorrhage or perforation CPT copyright 2020 [employer]. All rights reserved. The codes documented in this report are preliminary and upon electrolysis investigator review may be revised to meet current compliance requirements. Attending Participation: ? I personally performed the entire procedure. ? Humberto Kaylee Dumont, 10/07/2021 12:22:52 PM Number of Addenda: 0 Note Initiated On: 10/07/2021 9:41 AM Specimen (Source) Anatomical Collection Method Collection Time Re ceived Time Location / / Volume Laterality 10/07/2021 9:41 AM EDT William PAVON GENERAL SURGICAL ORDERABLES Performing Organization Address City/State/ZIP Code Phon e Number PROVATION Carotid Duplex, Bilateral (10/06/2021 12:10 PM EDT) Component Value Ref Test Analysis Performed At [facility] Range Method Time Signature VB Text Department: Vascular Surgery Lab [facility] Report Patient: [id number] (JOHN DUARET) CPT: 46795 Referring Physician: HANH VALADEZ ?? Indications: following carotid disease, ? progression Findings: ICA Proximal, Right ? PSV (cm/s): 149 ? EDV (cm/s): 31 ? ICA/CCA: 1.4 ? Plaque Structure: Echogenic ? Plaque Surface: Irregular ? %Stenosis: 16-49% ICA Distal, Right ? PSV (cm/s): 107 ? EDV (cm/s): 25 ? ICA/CCA: 1.0 CCA Distal, Right ? PSV (cm/s): 108 ? EDV (cm/s): 19 ? %Stenosis: Minimal CCA Proximal, Right ? PSV (cm/s): 129 ? EDV (cm/s): 19 External Carotid Artery, Right ? PSV (cm/s): 294 ? EDV (cm/s): 21 ? %Stenosis: >50% Vertebral, Right ? PSV (cm/s): 65 ? EDV (cm/s): 17 ? Direction of Flow: Antegrade ICA Proximal, Left ? PSV (cm/s): 370 ? EDV (cm/s): 98 ? ICA/CCA: 3.0 ? Plaque Structure: Echogenic ? Plaque Surface: Irregular ? %Stenosis: 60-79% ICA Distal, Left ? PSV (cm/s): 108 ? EDV (cm/s): 32 ? ICA/CCA: 0.9 CCA Distal, Left ? PSV (cm/s): 122 ? EDV (cm/s): 17 ? %Stenosis: Minimal CCA Proximal, Left ? PSV (cm/s): 120 ? EDV (cm/s): 19 External Carotid Artery, Left ? PSV (cm/s): 270 ? EDV (cm/s): 28 ? %Stenosis: >50% Vertebral, Left ? PSV (cm/s): 86 ? EDV (cm/s): 19 ? Direction of Flow: Antegrade Interpretation: RIGHT: There is bulky irregular plaque i n the proximal internal carotid artery causing 16-49% stenosis when compared to the more distal int ernal carotid artery. The bifurcation leve l is in the mid neck. No significant change compared to previous exam 09/13/2020. LEFT: There is bulky irregular plaque in the car otid bifurcation and proximal internal carotid artery caus ing 60-79% stenosis when compared to the more distal internal carotid artery. Mild progression compar ed to previous exam 09/13/2020 The bifurcation level is in the mid neck. Vertebral Artery Data: Patent vertebral arteries with normal antegrade Doppler waveforms and velocities bilaterally. Previous Carotid Studies: Date ?RIGHT ICA St enosis ??PSV ?? Ratio ?? LEFT ICA Stenosis ?? PSV ?? Ratio ? 16-49% ? 78 ?1.10 ? 16-49% ? 99 ?0.90 ? 16-49% ? 120 ?? 1.50 ? 50-69% ? 302 ?? 3.40 ? 16-49% ? 137 ?? 1.50 ? 50-69% ? 321 ?? 3.50 Current Exam ? 16-49% ? 149 ?? 1.40 ? 50-79% ? 370 ?? 3.00 Electronically Signed by: JUDY STEINBERG on 2021-10-06 02:35: 40 PM VB Text End of Report [facility] Report Specimen (Source) Anatomical Collection Method Collection Time Re ceived Time Location / / Volume Laterality 10/06/2021 12:10 PM EDT Hanh Valadez APRN VASCULAR ORDERABLES Performing Organization Address City/State/ZIP Code Phon e Number [facility] CT Abdomen w Contrast (09/30/2021 4:42 PM EDT) Anatomical Region Laterality Modality Abdomen Computed Tomography Specimen (Source) Anatomical Collection Method Collection Time Re ceived Time Location / / Volume Laterality 09/30/2021 5:00 PM EDT Impressions 09/30/2021 5:38 PM EDT 1. ??New intra and extrahepatic biliary dilation and increasing main pancreatic duct dilation in the setting of a new ma ss or inflammatory process in the pancreatic duodenal groove. The differen tial includes obstruction secondary to malignancy (such as pancreatic ductal ad enocarcinoma, ampullary or duodenal malignancy and leiomyosarcoma), and infl ammatory processes such as paraduodenal pancreatitis (groove pancreatitis). 2. ??Reason for infrarenal aortic aneury sm similar appearance to 06/07/2021 CT. Thank you for letting us participate in the care of this patient. ??If you are a health care provider and have any questi ons regarding this report, please contact the number below. ??For patients who have questions please contact the health group care worker that requested your imaging first. ? Electronically signed by: John denney MD, [facility] ([phone]), at 09/30/2021 5:38 PM Narrative 09/30/2021 5:38 PM EDT EXAMINATION: CT ABDOMEN W CONTRAST CLINICAL HISTORY: Biliary obstruction kohli spected (Ped 0-18y); Jaundice, malignancy suspected (Ped 0-18y) TECHNIQUE: Helical CT of the abdomen was performed following the intravenous administration of contrast. Omnipaque 35 0 80 mL IV administered. Oral contrast was not administered. COMPARISON: CT abdomen pelvis on 06/08/19 22 FINDINGS: Lower chest: No basilar consolidation or effusion. There are scattered subcentimeter pulmonary nodules in the l ower lobes. The LEFT lower lobe nodule (series 5 image 15 was present on the pr ior study and measures 3 mm. 2. RIGHT lower lobe nodules on series 5 image 5 and 7 were outside the [id number]-[id number]-pted of the prior study with th e largest measuring 5 mm. Liver: The liver is normal in size and a ttenuation. Heterogeneous enhancement in the pancreatic phase imaging is favored to be secondary to timing of acquisition with respect to the contrast bolus with the exam representing more of a early arterial phase imaging. The liver parenc hyma enhances homogeneously throughout on portal venous phase imaging. No suspi cious liver lesions are present. Bile ducts: New moderate to severe intra and extrahepatic biliary dilation with the extra hepatic duct measuring up to 1 3 mm in diameter. No calcified choledocholithiasis present. The common bile duct abruptly tapers in the region of the pancreatic head Gallbladder: Hydropic with intermediate attenuation material layering dependently within it which could repres ent sludge. Pancreas: Similar atrophy of the pancrea tic body and tail. Increased dilation of the main pancreatic duct throughout [place] uring up to 6 mm in diameter abruptly tapering in the region the pancreatic he ad. In the region of the pancreatic head/ampulla/duodenum there is a new hyp oenhancing region/mass measuring approximately 4 cm in diameter with an a djacent 1.6 cm cystlike focus (series 8 image 46).. There is no encasement of th e adjacent superior mesenteric artery or celiac trunk. Oral hepatic artery. The m ass does abut and partially encases the gastroduodenal artery. Abutment without encasement of the superior mesenteric vein, approximately 90 degrees Spleen: Normal. Adrenal: Normal. Kidneys: Normal. Vasculature: Fusiform infrarenal aortic aneurysm measuring 3.5 cm in diameter tapering at the bifurcation. Lymph nodes: No enlarged lymph nodes. Bowel: No dilated small or large bowel p resent. There is a mass invading into or from the second segment of the duodenum in the region of the major papilla/pancreatic head Peritoneum and mesentery: No ascites, fr ee air, or loculated fluid collection. No mesenteric inflammation. Abdominal wall: Normal. Osseous structures: No suspicious lesion s. Procedure Note John Gann MD - 09/30/2021Form atting of this note might be different from the original. EXAMINATION: CT ABDOMEN W CONTRAST CLINICAL HISTORY: Biliary obstruction kohli spected (Ped 0-18y); Jaundice, malignancy suspected (Ped 0-18y) TECHNIQUE: Helical CT of the abdomen was performed following the intravenous administration of contrast. Omnipaque 35 0 80 mL IV administered. Oral contrast was not administered. COMPARISON: CT abdomen pelvis on 06/08/19 FINDINGS: Lower chest: No basilar consolidation or effusion. There are scattered subcentimeter pulmonary nodules in the l ower lobes. The LEFT lower lobe nodule (series 5 image 15 was present on the pr ior study and measures 3 mm. 2. RIGHT lower lobe nodules on series 5 image 5 and 7 were outside the rrlng-wj-eumf of the prior study with th e largest measuring 5 mm. Liver: The liver is normal in size and a ttenuation. Heterogeneous enhancement in the pancreatic phase imaging is favored to be secondary to timing of acquisition with respect to the contrast bolus with the exam representing more of a early arterial phase imaging. The liver parenc hyma enhances homogeneously throughout on portal venous phase imaging. No suspi cious liver lesions are present. Bile ducts: New moderate to severe intra and extrahepatic biliary dilation with the extra hepatic duct measuring up to 1 3 mm in diameter. No calcified choledocholithiasis present. The common bile duct abruptly tapers in the region of the pancreatic head Gallbladder: Hydropic with intermediate attenuation material layering dependently within it which could repres ent sludge. Pancreas: Similar atrophy of the pancrea tic body and tail. Increased dilation of the main pancreatic duct throughout [place] uring up to 6 mm in diameter abruptly tapering in the region the pancreatic he ad. In the region of the pancreatic head/ampulla/duodenum there is a new hyp oenhancing region/mass measuring approximately 4 cm in diameter with an a djacent 1.6 cm cystlike focus (series 8 image 46).. There is no encasement of th e adjacent superior mesenteric artery or celiac trunk. Oral hepatic artery. The m ass does abut and partially encases the gastroduodenal artery. Abutment without encasement of the superior mesenteric vein, approximately 90 degrees Spleen: Normal. Adrenal: Normal. Kidneys: Normal. Vasculature: Fusiform infrarenal aortic aneurysm measuring 3.5 cm in diameter tapering at the bifurcation. Lymph nodes: No enlarged lymph nodes. Bowel: No dilated small or large bowel p resent. There is a mass invading into or from the second segment of the duodenum in the region of the major papilla/pancreatic head Peritoneum and mesentery: No ascites, fr ee air, or loculated fluid collection. No mesenteric inflammation. Abdominal wall: Normal. Osseous structures: No suspicious lesion s. IMPRESSION 1. New intra and extrahepatic biliary di lation and increasing main pancreatic duct dilation in the setting of a new ma ss or inflammatory process in the pancreatic duodenal groove. The differen tial includes obstruction secondary to malignancy (such as pancreatic ductal ad enocarcinoma, ampullary or duodenal malignancy and leiomyosarcoma), and infl ammatory processes such as paraduodenal pancreatitis (groove pancreatitis). 2. Reason for infrarenal aortic aneurysm similar appearance to 06/07/2021 CT. Thank you for letting us participate in the care of this patient. If you are a health care provider and have any questi ons regarding this report, please contact the number below. For patients w ho have questions please contact the health group care worker that requested your imaging first. Gabriel Hilario MD IMG CT ORDERABLES from Last 3 Months Insurance Payer Benefit Plan / Subscriber ID Effective Dates Phone Addre ss Type Group AARP MANAGED AARP RPPO [id number] 2019-Prese [phone] [address] [address] MEDICARE MANAGED nt [address] [place] [address] Guarantor Name Account Type Relation to Date of Phone Billing Patient Address John Duarte Personal/Family Self 1955 [address] (Home) [place] [phone] [id number] (Work) Advance Directives Latest Code Status on File Code Status Date Activated Date Inactivated Comments Attempt Cardiopulmonary Resuscitation - 10/30/2021 4:09 PM 022 6:20 PM Inpatient Code Status decision made by: Patient Care Teams [employer] 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
--- OUTSIDE RECORDS SUMMARY | 2021-11-07 00:52 | XMS_ITS | Encounter Summary ---
:1955 Author Organization [facility] [place] [address] Care Team Providers Name Role Phone William Wade Primary Care Provider Reason for Visit Treatment/Therapy Plan Authorization (Routine) - Authorized Specialty Diagnoses / Procedures Referred By Contact Refer red To Contact Diagnoses Malignant neoplasm of head of pancreas Eric Streeter MD [facility] Hem Onc Infusion Procedures TC PALONOSETRON HCL, 25MCG, INJECTION (ALOXI) TC FOSAPREPITANT, 1MG, INJECTION (EMEND) TC OXALIPLATIN, 0.5MG, INJECTION (ELOXATIN) TC LEUCOVORIN CALCIUM, 50MG, INJECTION (WELLCOVORIN) TC IRINOTECAN, 20MG (CAMPTOSAR) [address] [id number] Aloxi 0.25 MG J1453 EMEND 130 MG J9263 OXALIplatin (Eloxatin) 135 MG J0640 Leucovorin 350 MG J9206 IRINOtecan (Camptosar) 240 [place] [phone] Fax: Referral ID Status Reason Start Date Expiration Date Visits V isits Requested Authorized [id number] Authorized 10/21/2021 10/21/2022 99 99 Encounter Details Date Type Department Care Team Description 11/07/2021 Infusion Hematology Oncology at [address] [phone] Social History Tobacco Use Types Packs/Day Years Used Date Current Every Day Smoker Cigarettes 0.5 Smokeless Tobacco: Never Used Comments: knows he will have to quit [...] place to sleep or slept in a [place] [facility] facility (including now)? Sex Assigned at Date Recorded Not on file documented as of this encounter Plan of Treatment Upcoming Encounters Date Type Specialty Care Team Description 11/07/2021 Office Visit Hematology and Oncology Eric Streeter MD [facility] [address] ONCOLOG[facility] [place], [place] [address] (Wo brigido) 11/07/2021 Office Visit Hematology and Oncology Irena Hinojosa RD [facility] HEMATOLOGY AND O NCOLOGY [place], [place] [address] (Wo rk) 11/21/2021 Office Visit Hematology and Oncology Eric Streeter MD [facility] [place], [place] [address] (Wo rk) 11/21/2021 Infusion Hematology and Oncology 12/05/2021 Office Visit Hematology and Oncology Eric Streeter MD [facility] [place], [place] [address] (Wo rk) 12/05/2021 Infusion Hematology and Oncology 12/19/2021 Office Visit Hematology and Oncology Eric Streeter MD [facility] [place], [place] [address] (Wo rk) 12/19/2021 Infusion Hematology and Oncology documented as of this encounter Visit Diagnoses Not on filedocumented in this encounter Care Teams Marketing Strategist Relationship Specialty Start Date End Date William Wade PA PCP - General Family Medicine 08/31/[address] [place] [address] [place] [address] documented as of this encounter
--- OUTSIDE RECORDS SUMMARY | 2021-11-07 00:53 | XMS_ITS | Encounter Summary ---
:1955 Author Organization [facility] [place] [address] Care Team Providers Name Role Phone William Wade Primary Care Provider Reason for Visit Auth/Cert Specialty Diagnoses / Procedures Referred By Contact Refer red To Contact Diagnoses 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d loss (chronic) Melena anemia melena Raul Rodrigez MD [facility] Procedures PRO UPPER GI ENDOSCOPY, DIAGNOSTIC PRO UPPER GI ENDOSCOPY, BIOPSY PRO UP GI ENDOSCOPY, REMV TUMOR, SNARE PRO ANESTH, UGI ENDOSCOPY NOS EGD, UPPER GI ENDOSCOPY [facility] [place] [address] Referral ID Status Reason Start Date Expiration Date Visits Requ ested Visits Authorized [id number] 1 1 Encounter Details Date Type Department Care Team Description 10/30/2021 - [address] Raul Barboza MD [facility] [place] [address] Preop cardiovascular exam; 11/03/2021 Encounter [facility] Sloane Kuo MD [facility] [place] [place] [address] Malignant neoplasm of head of pancreas; Ava Mcgrath MD [facility] [place] [address] [place] [address] Social History Tobacco Use Types Packs/Day Years [...] place to sleep or slept in a group home (including now)? Sex Assigned at Date Recorded Not on file documented as of this encounter Last Filed Vital Signs Vital Sign Reading [...] Mass Index 18.3 10/30/2021 1:50 PM EDT documented in this encounter Discharge Summaries Melo Ambrose MD - 11/03/2021 12:38 PM EDT Discharge Summary Patient Name: John Duarte Patient Age: 66 y.o. Language: Wolof Race: White Ethnicity: Not nor Admit date: 10/30/2021 Discharge date and time: 11/03/2021 1:18 PM Attending Physician: Ava Victor MD Discharge Physician: Ava Victor MD Follow-up Recommendations for Providers: - Please check a CBC at his next appointment in the setting of UGIB s/p hemospray as a temporizing measure - Please ensure patient has follow up with cytopathology results of CT-guided biopsy Discharge Diagnoses (Hospital Problems) and Secondary Diagnoses (Chronic Problems): Active Hospital Problems Diagnosis ??? Severe protein-calorie malnutrition ??? Pancreatic adenocarcinoma ??? Solid nodule of lung less than 6 mm in diameter ??? Acute on chronic blood loss anemia ??? Duodenal ulcer Resolved Hospital Problems No resolved problems to display. Active Non-Hospital Problems Diagnosis ??? Diabetes mellitus ??? Hypertension ??? Malignant neoplasm of head of pancreas ??? Jaundice ??? CIS - Dyslipidemia ??? CIS - Non ST elevation myocardial infarction ??? CIS - Tobacco abuse Operations/Major Procedures: Operations: Procedure(s): EGD, W CONTROL OF BLEEDING, ANY METHOD 10/30/2021 Other Major Procedures: CT-guided percutaneous lung biopsy History of Presentation: History of Present Illness: Ruben initially had a bout of abdominal pain 06/10 and presented for further evaluation where a CT revealed 2 cystic pancreatic lesions. At the time he also underwent upper EUS showing these two lesions that appeared benign in nature, thought to be potentially due to IPMN. A few months following in 10/10 Ruben started to experience weight loss, difficulty controlling his DM, and jaundice. At that time a CT was repeated revealing biliary and pancreatic ductal dilation thought to be potentially due to a new mass vs inflammatory process. Repeat upper EUS showed a pancreatic mass that was subsequently biopsied and showed adenocarcinoma. Diagnostic laparoscopy was soon performed which showed no evidence of metastatic disease and there was the thought that this tumor could potentially be resectable via Whipple procedure. ?? During a recent office visit with his oncologist the patient was noted to have low Hgbs to 7 which was a significant drop from 8.2. He endorses experience new dark black stool and a dark red stool thatwas concerning for a GIB. He went to a OSH ED where he received 1 unit of pRBCs and was transferred to [facility] for endoscopy and further expedited work-up. While in the endoscopy suite the scope noted a friable mass extending into the duodenum with inability to pass the scope beyond it. There was some mild oozing thought to be the source of the patient's bleed for which hemospray was applied to temporize it. Since that procedure he feels well without any acute complaints. He endorses recent weight lossand hematochezia but denies any fevers/chills, chest pain, dyspnea, abdominal pain, nausea/vomiting,hematuria, or LE edema. He is amenable to being admitted to the hospital for further work-up. Hospital Course: #Pancreatic Head Adenocarcinoma #Suspected Pancreatic Adenocarcinoma Lung Metastases #Suspected UGIB s/p EGD Mr. Duarte was admitted from the endoscopy suite after presenting for a few days of blood stools, GInoted on EGD oozing from friable mass which extended into the duodenum that they spray with Hemospray. He was then moved to the medicine floor for observation. Since his EGD his hemoglobin remained stable, on hospital day 2 he experiences a bowel movement that he reported as bloody, however he flushedit before his nurse could examine. Repeat Hgb that afternoon was acceptable. As part of an expeditedworkup for possible Whipple, thoracic surgery was consulted for a possible wedge resection of RLL lung nodule for tissue diagnosis. However, thoracic determined that Mr. Duarte's most recent pulmonary function testing (DLCO in 20's) make him a poor surgical candidate for VATS procedure which requires one lung ventilation. Interventional radiology was consulted for possible percutaneous biopsy of nodule and plan to do a CT guided biopsy. Heme- Onc and Surgical Onc was consulted for coordination of treatment timeline. Patient underwent technically successful CT-guided percutaneous lung biopsy, was monitored for complications and determined to be safe for discharge. #Diabetes mellitus, on home insulin Mr. Duarte was started on moderate sliding scale with meal associated insulin while inpatient. Nutrition was involved with care and suggested a carb control level 2 diet with glucerna supplements between meals. Blood sugars were relatively well-controlled during inpatient stay. #Tobacco Use Disorder Mr. Duarte has a ~17 year tobacco history beginning at 39, he has weaned down to 1/2 ppd. While inpatient Mr. Duarte received nicotine patches 12mg/24 hr 4 mg nicotine lozenges. #Hypertension, chronic Patient was continued on his home doses of losartan and metoprolol. #Hyperlipidemia Continued on atovastatin at home dose. #Urinary retention, chronic Continued on home dose of tamsulosin 0.8 daily for urinary retention. #GERD #Hx of duodenal ulcer Pantoprazole 40 mg for GI prophylaxis while inpatient. Vital Signs at Discharge: BP: 128/52, Heart Rate: 63, Temp: 36.6 ??C (97.9 ??F), Resp: 16, BMI (Calculated): 18.3 Height: 165.1 cm (5' 5) (10/30/21 1350) Weight: 49.9 kg (110 lb) (10/30/21 1350) Functional and Cognitive Status: At baseline Admission Diagnoses: Duodenal ulcer [K26.9] Discharge Diagnoses: Upper GI bleed s/p hemospray Admission Condition: poor Indication for Admission: Acute on chronic anemia in setting of Hx of duodenal ulcer bleed Consults: hematology/oncology, thoracic surgery, interventional radiology, diabetes management, vascular access, occupational therapy, nutrition, gastroenterology Important Studies and Lab Data: Labs: Last 3 wbc, hgb, hct plt Recent Labs 11/03/21 0415 11/02/21 0213 11/01/21 1300 11/01/21 0238 WBC 8.4 7.4 -- 7.5 HGB 8.5* 9.3* 8.9* 8.6* HCT 25.7* 27.5* 26.1* 25.9* PLATELET 161 170 -- 195 Last 3 Lytes Recent Labs 11/03/21 0415 11/02/21 0213 11/01/21 0238 NA 136 139 136 K 3.8 4.0 4.2 CL 103 107 106 CO2 23 23 22 BUN 10 9* 9* CREATININE 0.79* 0.79* 0.69* Last Ca, Mg, Phos Recent Labs 11/03/21 0415 CALCIUM 7.8* PHOS 3.2 MAGNESIUM 0.68* Studies: Results for orders placed or performed during the hospital encounter of 10/30/21 CT Guided Biopsy Lung (Exam End: 11/03/2021 9:12 AM) Impression Impression: Technically successful CT-guided core needle biopsy of the right lower lobe pulmonary nodule. Plan: * Chest x-ray now and in 2 hours. * To IR postprocedural recovery room * Discharge from IR when criteria are met Check Pilot(s): Resident/Fellow: Tammy Gaviria Attending: Candis Stallings Procedure/Teaching Attestation: I was present for the procedure. Moderate Sedation Attestation: I was present during the intra-service time as documented by IR nurse. Preliminary report signed by: Sergo Gaviria at 11/03/2021 9:16 AM I have personally reviewed the image(s) and the resident's interpretation and agree with the findings, Jaron Stallings DO at 11/03/2021 9:25 AM Thank you for letting us participate in the care of this patient. If you are a health care provider and have any questions regarding this report, please contact the number below. For patients who have questions please contact the health resident care technician that requested your imaging first. Chest One View (Exam End: 11/03/2021 10:14 AM) Impression No pneumothorax. Thank you for letting us participate in the care of this patient. If you are a health care provider and have any questions regarding this report, please contact the number below. For patients who have questions please contact the health resident care technician that requested your imaging first. Chest One View (Exam End: 11/03/2021 9:20 AM) Impression No pneumothorax. Thank you for letting us participate in the care of this patient. If you are a health care provider and have any questions regarding this report, please contact the number below. For patients who have questions please contact the health resident care technician that requested your imaging first. Pending Studies and Lab Data: Cytopathology of CT-guided lung biopsy Treatments: IV hydration, insulin: Humalog and Lantus, therapies: PT, OT and RN and procedures: CT-guided lung biopsy, EGD with hemospray for duodenal erosion Discharge Exam: Constitutional: General: He is not in acute distress. Appearance: He is underweight. Eyes: Extraocular Movements: Extraocular movements intact. Pupils: Pupils are equal, round, and reactive to light. Cardiovascular: Rate and Rhythm: Normal rate and regular rhythm. Pulmonary: Effort: Pulmonary effort is normal. No respiratory distress. Breath sounds: No wheezing. Abdominal: General: Abdomen is flat. A surgical scar is present. Bowel sounds are normal. Palpations: Abdomen is soft. Neurological: Mental Status: He is alert and oriented to person, place, and time. Psychiatric: Mood and Affect: Mood normal. Behavior: Behavior is cooperative. Thought Content: Thought content normal. Discharge Conditions/Prognosis: stable Discharge to: home Updated Allergies/ADRs: No Known Allergies Immunizations Given this Hospitalization: Immunization History Administered Date(s) Administered ??? Influenza Vaccine, Whole 04/25/2008 ??? Pneumococcal Polyvalent 23 04/25/2008 Discharge Medications: Your Medications Continued medications with new dosing Dose Details losartan 25 mg Tab Commonly known as: Cozaar Take 1.5 tablets by mouth daily. Start taking on: November 04, 2021 What changed: how much to take 37.5 mg Quantity: 90 tablet Refills: 3 tamsulosin 0.4 mg Cap Commonly known as: Flomax Take 2 capsules by mouth daily. Start taking on: November 04, 2021 What changed: how much to take 0.8 mg Quantity: 90 tablet Refills: 3 Continued medications, unchanged Dose Details aspirin EC 81 mg Tbec Take 81 mg by mouth daily. 81 mg Refills: 0 atorvastatin 80 mg Tab Commonly known as: Lipitor 40 mg. 40 mg Refills: 0 metFORMIN 850 mg Tab Commonly known as: Glucophage 2 times daily. Refills: 0 metoprolol succinate XL 25 mg Tablet sr Commonly known as: Toprol-XL Take by mouth daily. Refills: 0 nitroGLYcerin 0.4 mg Subl Commonly known as: Nitrostat Place under the tongue. Refills: 0 pantoprazole EC 40 mg Tbec Commonly known as: Protonix Take 1 tablet by mouth daily. 40 mg Quantity: 90 tablet Refills: 3 Smoking Status at Discharge: Social History Tobacco Use Smoking Status Current Every Day Smoker ??? Packs/day: 0.50 ??? Types: Cigarettes Smokeless Tobacco Never Used Tobacco Comment knows he will have to quit Instructions Given to Patient at Discharge: Patient Instructions Patient Instructions on Discharge to Home Why you were hospitalized - You were hospitalized for an upper GI bleed that was temporized with hemospray during an EGD procedure with GI. The pancreatic tumor was believed to be the cause behind thisbleed. You then underwent a lung biopsy with IR in order to provide a tissue diagnosis for a pulmonary nodule noted on PET scan. Call your doctor or seek medical attention if you develop the following - chest pain, shortness of breath, passing out, feeling dizzy upon standing, passing out, diarrhea, constipation lasting longer than 2 days, fevers (temperature over 100.3), chills, abdominal pain, vomiting, difficulty or discomfort when urinating, bloody or black bowel movements, or any other acute or concerning symptom. Activity level - As tolerated Diet - Carb controlled Driving - Ok to resume prior driving activity, please do not operate a motor vehicle under the influence of sedating medications Shower/Bath - No restrictions Medication Changes - Medications with new dose (you may have been taking these medications at these doses prior to hospitalization, the doses have been changed to reflect what you take at home as a housekeeping measure so your list stays up to date): Losartan, please take 1.5 25mg tablets daily for blood pressure control (total dose 37.5mg daily) Tamsulosin, please take 2 0.4mg tablets daily for benign prostatic hyperplasia (total dose 0.8mg daily) Other Important Instructions A primary care hospital follow-up appointment is pending, you will be contacted with a date and timefor this when the appointment has been scheduled and finalized. Follow-up Appointments Future Appointments Date Time Provider Department Center 11/07/2021 9:00 AM Eric Streeter MD [facility] 11/07/2021 9:30 AM [facility], ROOM [facility] 11/21/2021 9:00 AM Eric Streeter MD [facility] 11/21/2021 9:30 AM [facility], ROOM [facility] 12/05/2021 9:00 AM Eric Streeter MD [facility] 12/05/2021 9:30 AM [facility], ROOM [facility] 12/19/2021 9:00 AM Eric Streeter MD [facility] 12/19/2021 9:30 AM [facility], ROOM [facility] Your Inpatient Medical Team at [facility] Name(s) of your inpatient provider(s): MD Melo Mccann MD Maxwell Blazon, DO Lily Greene For questions regarding issues relating to your hospitalization on the Hospital Medicine Service, please contact your inpatient physician through the [facility] Check Pilot [phone]. Issues after hours and on weekends will be handled by the Hospitalist staff on-call. Your Primary Care Provider LIBRADO Mcclendon [phone] General Instructions [facility] Vascular and Interventional Radiology Biopsy Discharge Instructions ??? Right Lung biopsy: call your doctor immediately if you develop a sudden onset of weakness, increased pain or swelling at the biopsy site or heavy bleeding at the biopsy site. ??? Lung biopsy: coughing up a little blood is common during the next 24 hours. If large blood clotscome up, or if the bleeding gets worse, you should contact us or your doctor immediately. The most common complication is collapse of the lung. The symptoms of lung collapse are increasing pain on breathing, often extending into the shoulder on the side of the biopsy, and increasing difficulty breathing. If these symptoms occur after you leave the hospital, have someone drive you to the nearest Emergency Department as it must be treated promptly or call 911. Activity And Diet: ??? Go home and rest quietly for the remainder of the day. You may resume your normal activities tomorrow. ??? Resume your usual diet after the procedure. ??? Do not drive, sign any important/legal documents, or make any important decisions for 24 hours following sedation medications. When to call your healthcare provider: ??? If you see any redness, swelling or drainage at the biopsy site. ??? If you develop chills. ??? If you have a fever greater than or equal to 101 degrees Fahrenheit. ??? If you develop pain around the biopsy site. Bandage: ??? Check the dressing/bandaid throughout the day for an increase in drainage. Keep the biopsy site dry for 24 hours. Replace the bandaid as needed. You may shower 24 hours after the biopsy. Medication: ??? DO NOT take aspirin-containing products, ibuprofen, or blood-thinning medication for the next 24hours unless your clinician says you may do so. ??? Generally you may use acetaminophen as needed for discomfort unless you have liver disease and are instructed not to take acetaminophen. Biopsy Results ??? The results of your biopsy should be available within 5 business days and will be reported to you by your primary customer care coordinator or the clinician who ordered the biopsy. Please do not call us for results as we will not have them. ??? If you have not been contacted by your clinician within 5 business days you should call that office for further information. When to call the Interventional Radiology Department: Please call with any questions or concerns. Ifit is during regular office hours, please call [phone]. If it is after regular office hours, oron weekends or holidays, please call [phone] and ask to speak to the Diamond Powder Technician on callfor Interventional Radiology. You have received medication during your procedure to help lessen anxiety and keep you comfortable.These medications affect judgement and reaction time. We recommend that you do not drive, operate equipment, sign any important documents, or smoke unattended for 24 hours following your procedure. Because of the sedation, be careful on stairs, as you may be unsteady on your feet. You may resume your regular diet as tolerated. IV site -- slight redness, or tenderness is normal, you can use a warm compress. If tenderness and redness increases or foul drainage occurs, please contact your M. D. Revised 01/05/19 Upper GI Endoscopy: What to Expect at Home Your Recovery You will be able to go home after your doctor or nurse checks to make sure you are not having any problems. You may have to stay overnight if you had treatment during the test. You may have a sore throat for a day or two after the test. This care sheet gives you a general idea about what to expect after the test. How can you care for yourself at home? Activity Rest when you feel tired. ?? You can do your normal activities when it feels okay to do so. Diet ?? Follow your doctor's directions for eating. ?? Unless your doctor has told you not to, drink plenty of fluids. This helps to replace the fluidsthat were lost during the prep. ?? Do not drink alcohol. Medicines ?? Your doctor will tell you if and when you can restart your medicines. He or she will also give you instructions about taking any new medicines. ?? If you take blood thinners, such as warfarin (Coumadin), clopidogrel (Plavix), or aspirin, be sure to talk to your doctor. He or she will tell you if and when to start taking those medicines again.Make sure that you understand exactly what your doctor wants you to do. ?? If polyps were removed or a biopsy was done during the test, your doctor may tell you not to take aspirin or other anti-inflammatory medicines for a few days. These include ibuprofen (Advil, Motrin) and naproxen (Aleve). ?? If you have a sore throat the day after the procedure, use an djfq-ice-kmaweod spray to numb yourthroat. Sucking on throat lozenges and gargling with warm salt water may also help relieve your symptoms. Other instructions ?? For your safety, do not drive or operate machinery until the medicine wears off and you can think clearly. Your doctor may tell you not to drive or operate machinery until the day after your test. ?? Do not sign legal documents or make major decisions until the medicine wears off and you can think clearly. The anesthesia can make it hard for you to fully understand what you are agreeing to. Additional Information for Sedation Patients For patients who received sedation: ?? You may have received medications before and/or during your procedure which effects your judgement and reaction time. ?? Do not drive, operate machinery, drink alcoholic beverages or make important decisions for 24 hours. ?? Be careful on stairs as you may be unsteady on your feet. ?? You may eat a regular diet as tolerated. ?? Do not smoke if you are alone. ?? IV site: Slight redness or tenderness is normal, you can use a warm compress if you would like. If tenderness and/or redness increase or if foul drainage occurs, please contact your Doctor. Please call [phone] before 8pm Mon-Fri with problems, questions or concerns. If you call after 8pm or on weekends, call the Hospital at [phone] and ask to speak to the School Traffic Supervisor emergency management consultant and the steelscope operator will contact that person for you. When should you call for help? Call [phone] anytime you think you may need emergency care. For example, call if: ?? You passed out (lost consciousness). ?? You pass maroon or bloody stools. ?? You have trouble breathing. Call your doctor now or seek immediate medical care if: ?? You have pain that does not get better after you take pain medicine. ?? You are sick to your stomach or cannot drink fluids. ?? You have new or worse belly pain. ?? You have blood in your stools. ?? You have a fever. ?? You cannot pass stools or gas. Watch closely for changes in your health, and be sure to contact your doctor if you have any problems. Where can you learn more? [facility] View your After Visit Summary and more online at [email or web address] If you would like to provide feedback about your hospital experience, please call the Office of Patient and Family Relations at . If you have received this After Visit Summary in error, please immediately return it in person to the department, or notify the [facility] Privacy Office by calling toll free at between the hours of 8AM and 5PM to arrange for our retrieval of the documents at no cost to you. Content Version: 12.2 ?? [id number] [employer]. Care instructions adapted under license by [facility]. If you have questions about a medical condition or this instruction, always ask your healthcare professional. [employer] disclaims any warranty or liability for your use of this information. Future Appointments and Orders Future Appointments and Orders Future Appointments Provider Department Dept Phone 11/07/2021 9:00 AM Eric Streeter MD Hematology/Oncology at [facility] Arrive at: [facility] door at end of hallway [phone] 11/07/2021 9:30 AM [facility], ROOM Hematology Oncology at [facility] Arrive at: [facility] door at end of hallway [phone] 11/21/2021 9:00 AM Eric Streeter MD Hematology/Oncology at [facility] Arrive at: [facility] door at end of hallway [phone] 11/21/2021 9:30 AM [facility], ROOM Hematology Oncology at [facility] Arrive at: [facility] door at end of hallway [phone] 12/05/2021 9:00 AM Eric Streeter MD Hematology/Oncology at [facility] Arrive at: [facility] door at end of hallway [phone] 12/05/2021 9:30 AM [facility], ROOM Hematology Oncology at [facility] Arrive at: [facility] door at end of hallway [phone] 12/19/2021 9:00 AM Eric Streeter MD Hematology/Oncology at [facility] Arrive at: [facility] door at end of hallway [phone] 12/19/2021 9:30 AM [facility], ROOM Hematology Oncology at [facility] Arrive at: [facility] door at end [address] [phone] Discharge References/Attachments None documented in this encounter Discharge Instructions Discharge InstructionsJoelle Khalil RN - 10/30/2021 4:26 PM EDT [facility] Vascular and Interventional Radiology Biopsy Discharge Instructions Right Lung biopsy: call your doctor immediately if you develop a sudden onset of weakness, increasedpain or swelling at the biopsy site or heavy bleeding at the biopsy site. Lung biopsy: coughing up a little blood is common during the next 24 hours. If large blood clots come up, or if the bleeding gets worse, you should contact us or your doctor immediately. The most common complication is collapse of the lung. The symptoms of lung collapse are increasing pain on breathing, often extending into the shoulder on the side of the biopsy, and increasing difficulty breathing. If these symptoms occur after you leave the hospital, have someone drive [facility] as it must be treated promptly or call 911. Activity And Diet: Go home and rest quietly for the remainder of the day. You may resume your normal activities tomorrow. Resume your usual diet after the procedure. Do not drive, sign any important/legal documents, or make any important decisions for 24 hours following sedation medications. When to call your healthcare provider: If you see any redness, swelling or drainage at the biopsy site. If you develop chills. If you have a fever greater than or equal to 101 degrees Fahrenheit. If you develop pain around the biopsy site. Bandage: Check the dressing/bandaid throughout the day for an increase in drainage. Keep the biopsy site dry for 24 hours. Replace the bandaid as needed. You may shower 24 hours after the biopsy. Medication: DO NOT take aspirin-containing products, ibuprofen, or blood-thinning medication for the next 24 hours unless your clinician says you may do so. Generally you may use acetaminophen as needed for discomfort unless you have liver disease and are instructed not to take acetaminophen. Biopsy Results The results of your biopsy should be available within 5 business days and will be reported to you byyour primary customer care coordinator or the clinician who ordered the biopsy. Please do not call us for results as we will not have them. If you have not been contacted by your clinician within 5 business days you should call that officefor further information. When to call the Interventional Radiology Department: Please call with any questions or concerns. Ifit is during regular office hours, please call [phone]. If it is after regular office hours, oron weekends or holidays, please call [phone] and ask to speak to the Diamond Powder Technician on callfor Interventional Radiology. You have received medication during your procedure to help lessen anxiety and keep you comfortable.These medications affect judgement and reaction time. We recommend that you do not drive, operate equipment, sign any important documents, or smoke unattended for 24 hours following your procedure. Because of the sedation, be careful on stairs, as you may be unsteady on your feet. You may resume your regular diet as tolerated. IV site -- slight redness, or tenderness is normal, you can use a warm compress. If tenderness and redness increases or foul drainage occurs, please contact your M. D. Revised 01/05/19 Upper GI Endoscopy: What to Expect at Home Your Recovery You will be able to go home after your doctor or nurse checks to make sure you are not having any problems. You may have to stay overnight if you had treatment during the test. You may have a sore throat for a day or two after the test. This care sheet gives you a general idea about what to expect after the test. How can you care for yourself at home? Activity Rest when you feel tired. You can do your normal activities when it feels okay to do so. Diet Follow your doctor's directions for eating. Unless your doctor has told you not to, drink plenty of fluids. This helps to replace the fluids that were lost during the prep. Do not drink alcohol. Medicines Your doctor will tell you if and when you can restart your medicines. He or she will also give you instructions about taking any new medicines. If you take blood thinners, such as warfarin (Coumadin), clopidogrel (Plavix), or aspirin, be sure to talk to your doctor. He or she will tell you if and when to start taking those medicines again. Make sure that you understand exactly what your doctor wants you to do. If polyps were removed or a biopsy was done during the test, your doctor may tell you not to take aspirin or other anti-inflammatory medicines for a few days. These include ibuprofen (Advil, Motrin) and naproxen (Aleve). If you have a sore throat the day after the procedure, use an odfe-ypr-qyieacv spray to numb your throat. Sucking on throat lozenges and gargling with warm salt water may also help relieve your symptoms. Other instructions For your safety, do not drive or operate machinery until the medicine wears off and you can think clearly. Your doctor may tell you not to drive or operate machinery until the day after your test. Do not sign legal documents or make major decisions until the medicine wears off and you can think clearly. The anesthesia can make it hard for you to fully understand what you are agreeing to. Additional Information for Sedation Patients For patients who received sedation: You may have received medications before and/or during your procedure which effects your judgement and reaction time. Do not drive, operate machinery, drink alcoholic beverages or make important decisions for 24 hours. Be careful on stairs as you may be unsteady on your feet. You may eat a regular diet as tolerated. Do not smoke if you are alone. IV site: Slight redness or tenderness is normal, you can use a warm compress if you would like. If tenderness and/or redness increase or if foul drainage occurs, please contact your Doctor. Please call [phone] before 8pm Mon-Fri with problems, questions or concerns. If you call after 8pm or on weekends, call the Hospital at [phone] and ask to speak to the School Traffic Supervisor emergency management consultant and the steelscope operator will contact that person for you. When should you call for help? Call [phone] anytime you think you may need emergency care. For example, call if: You passed out (lost consciousness). You pass maroon or bloody stools. You have trouble breathing. Call your doctor now or seek immediate medical care if: You have pain that does not get better after you take pain medicine. You are sick to your stomach or cannot drink fluids. You have new or worse belly pain. You have blood in your stools. You have a fever. You cannot pass stools or gas. Watch closely for changes in your health, and be sure to contact your doctor if you have any problems. Where can you learn more? [facility] View your After Visit Summary and more online at [email or web address] If you would like to provide feedback about your hospital experience, please call the Office of Patient and Family Relations at . If you have received this After Visit Summary in error, please immediately return it in person to the department, or notify the [facility] Privacy Office by calling toll free at between the hours of 8AM and 5PM to arrange for our retrieval of the documents at no cost to you. Content Version: 12.2 ?? [id number] [employer]. Care instructions adapted under license by [facility]. If you have questions about a medical condition or this instruction, always ask your healthcare professional. [employer] disclaims any warranty or liability for your use of this information. Patient InstructionsMelo Ambrose MD - 11/03/2021 1:06 PM EDT Patient Instructions on Discharge to Home Why you were hospitalized - You were hospitalized for an upper GI bleed that was temporized with hemospray during an EGD procedure with GI. The pancreatic tumor was believed to be the cause behind thisbleed. You then underwent a lung biopsy with IR in order to provide a tissue diagnosis for a pulmonary nodule noted on PET scan. Call your doctor or seek medical attention if you develop the following - chest pain, shortness of breath, passing out, feeling dizzy upon standing, passing out, diarrhea, constipation lasting longer than 2 days, fevers (temperature over 100.3), chills, abdominal pain, vomiting, difficulty or discomfort when urinating, bloody or black bowel movements, or any other acute or concerning symptom. Activity level - As tolerated Diet - Carb controlled Driving - Ok to resume prior driving activity, please do not operate a motor vehicle under the influence of sedating medications Shower/Bath - No restrictions Medication Changes - Medications with new dose (you may have been taking these medications at these doses prior to hospitalization, the doses have been changed to reflect what you take at home as a housekeeping measure so your list stays up to date): Losartan, please take 1.5 25mg tablets daily for blood pressure control (total dose 37.5mg daily) Tamsulosin, please take 2 0.4mg tablets daily for benign prostatic hyperplasia (total dose 0.8mg daily) Other Important Instructions A primary care hospital follow-up appointment is pending, you will be contacted with a date and timefor this when the appointment has been scheduled and finalized. Follow-up Appointments Future Appointments Date Time Provider Department Center 11/07/2021 9:00 AM Eric Streeter MD [facility] 11/07/2021 9:30 AM [facility] ROOM [facility] 11/21/2021 9:00 AM Eric Streeter MD [facility] 11/21/2021 9:30 AM [facility], RO[facility] 12/05/2021 9:00 AM Eric Streeter MD [facility] 12/05/2021 9:30 AM [facility], RO[facility] 12/19/2021 9:00 AM Eric Streeter MD [facility] 12/19/2021 9:30 AM [facility], ROOM [facility] Your Inpatient Medical Team at [facility] Name(s) of your inpatient provider(s): MD Melo Mccann MD Maxwell Blazon, DO Lily Greene For questions regarding issues relating to your hospitalization on the Hospital Medicine Service, please contact your inpatient physician through the [facility] Check Pilot [phone]. Issues after hours and on weekends will be handled by the Hospitalist staff on-call. Your Primary Care Provider LIBRADO Mcclendon [phone] documented in this encounter Medications at Time of Discharge Medication Sig Dispensed Refills Start Date End Date losartan (Cozaar) 25 mg Take 1.5 tablets by 90 tablet 3 Tablet mouth daily. tamsulosin (Flomax) 0.4 mg Take 2 capsules by 90 tablet 3 0 11/04/2021 Capsule mouth daily. pantoprazole EC (Protonix) Take 1 tablet by 90 tablet 3 11/2021 40 mg Tablet, Delayed mouth daily. Release (E.C.)Indications: Ulcerated, duodenum metoprolol succinate XL Take by mouth daily. 0 (Toprol-XL) 25 mg Tablet Sustained Release 24 hr aspirin EC 81 mg Tablet, Take 81 mg by mouth 0 Delayed Release (E.C.) daily. atorvastatin (LIPITOR) 80 40 mg. 0 09/21/2018 mg Tablet metFORMIN (GLUCOPHAGE) 850 2 times daily. 0 09/21 mg Tablet nitroGLYcerin (NITROSTAT) Place under the 0 07/25 0.4 mg SL tablet tongue. documented as of this encounter Progress Notes Haylee Christian RN - 11/03/2021 3:48 PM EDT Pt A&Ox4. VSS on RA. No endorsement of pain or N/V. Pt to CT for guided lung biopsy at beginningof shift. Dressing C/D/I. Nicotine patch applied to R shoulder per MAY. BG managed with insulin per MAY. Port deaccessed with heparin flush. AVS reviewed with pt. Pt discharged to home. Wheelchair rideto East entrance. Pt's friend provided ride. Ava Victor MD - 11/03/2021 1:37 PM EDT Hospital Medicine - Attending Day of Discharge Documentation Discharge diagnosis Active Hospital Problems Diagnosis ??? Severe protein-calorie malnutrition ??? Pancreatic adenocarcinoma ??? Solid nodule of lung less than 6 mm in diameter ??? Acute on chronic blood loss anemia ??? Duodenal ulcer Resolved Hospital Problems No resolved problems to display. Secondary Issues Active Non-Hospital Problems Diagnosis ??? Diabetes mellitus ??? Hypertension ??? Malignant neoplasm of head of pancreas ??? Jaundice ??? CIS - Dyslipidemia ??? CIS - Non ST elevation myocardial infarction ??? CIS - Tobacco abuse I have personally seen and examined the patient and they are ready for discharge. I spent >30 minutes involved in the final examination of the patient, discussion of the hospital stay, instructions for continuing care to all relevant caregivers, and preparation of discharge records, prescriptions and referral forms. Plans ? Discharge to home ? Follow-up scheduled with oncology already (Wednesday) and PCP ? Please see the Discharge Summary for complete details of any medication changes and additional plans. Ava Victor MD [facility] Medicine Yadira Guardado RN - 11/03/2021 10:45 AM EDT 1045- 2nd CXR okay per Dr. Stallings. Updated report called to HENRIETTA Henry. Patient transported back to room by stretcher on RA. Yadira Guardado RN - 11/03/2021 10:05 AM EDT 1005- Patient transported to [facility] for repeat CXR 1015- Dr. Stallings notified CXR completed Yadira Guardado RN - 11/03/2021 9:34 AM EDT 2225- Report received from HENRIETTA Roth. Patient resting comfortably, denies pain or needs at this time. Dressing CDI. Placed patient on 4L O2 via NC. O2 97% on RA, however small pneumothorax noted on post procedure CXR. Respirations even and unlabored, NAD. Isael Coleman OT - 11/03/2021 9:11 AM EDT Chart reviewed and orders received. Pt independent with ADLS/functional mobility per PT and has no OT needs. OT will monitor till d/c. Isael Coleman OTR/L Cooper Banegas PA - 11/03/2021 8:11 AM EDT Interventional Radiology Interval H&P: Procedure: Planned procedure: CT guided lung biopsy Update to H&P: The patient's history and physical exam have been reviewed and completed. There has been NO interval change from that of the pre-procedural note done within the last 30 days. There is NO change in the procedural plan. Meds: Current medications reviewed. No medications held. Labs: Day of procedure labs reviewed with no change in plan. Physical Exam: Cardiovascular: Regular, Normal Pulmonary: Breath sounds clear to auscultation The planned procedure (and sedation plan if appropriate), its benefits and risks, and alternatives were discussed with the patient. The patient consented to the procedure. The indications for the procedure are still present. Pre-sedation Assessment: Sedation Plan: moderate (conscious sedation) ASA: 2: Patient with mild systemic disease Mallampati: II: tonsillar pillars are blocked by the tongue Confirm NPO status: Yes History of anesthetic complications: No Current medications reviewed: Yes Allergies reviewed: Yes Ava Sahu RN - 11/03/2021 7:19 AM EDT [facility] Name: JOHN DUARTE Date of : 1955 AGE: 66 y.o. Address: [address] [address] Phone: There are no phone numbers on file. Mobile: Telephone Information: Referring Provider: Humberto Dumont REASON FOR VISIT: CT guided lung biopsy Order Questions Answers Is the patient on anticoagulant / antiplatelet therapy ? No Reason for exam and clinical history: bleeding pancreatic CA with lung nodules - favor biopsy of RLL4.7mm nodule. Low DLCO and VATS might not be an option so need IR. Is the patient taking any anticoagulants and/or antiplatelet meds? No Is patient awake, alert, and consentable? Yes Does patient need assist to stand? No Does Patient have any mobility limitations (e.g. spinal precautions) No Does patient require constant supervision? No Is patient over 450 lbs (200 kg) No Does patient have a pacemaker? No Does patient have a Chest Tube? No Is there a language / communication barrier? No Planned procedure: CT guided lung biopsy Labs to be performed day of procedure: No labs Sedation: Moderate (Conscious sedation) Prophylactic antibiotic : None Contrast: No contrast Additional medications for procedure: Lidocaine Planned access site: Right posterior back Position: Prone Consent: Pending Medications to discontinue (and days held): None Case Urgency:: G- Other (non E or F elective cases) No Known Allergies Pertinent PMH: Patient Active Problem List Diagnosis Code ??? CIS - Dyslipidemia ??? CIS - Non ST elevation myocardial infarction ??? CIS - Tobacco abuse ??? Jaundice R17 ??? Malignant neoplasm of head of pancreas C25.0 ??? Diabetes mellitus E11.9 ??? Hypertension I10 ??? Duodenal ulcer K26.9 ??? Severe protein-calorie malnutrition E43 ??? Pancreatic adenocarcinoma C25.9 ??? Solid nodule of lung less than 6 mm in diameter R91.1 ??? Acute on chronic blood loss anemia D62 Date/Procedure Meds Given/Comments Laboratory Results: Lab Results Component Value Date INR 1.2 11/03/2021 Lab Results Component Value Date CREATININE 0.79 (L) 11/03/2021 Lab Results Component Value Date K 3.8 11/03/2021 Lab Results Component Value Date PLATELET 161 11/03/2021 To Howard DO - 11/03/2021 6:25 AM EDT Hospital Medicine Attending Daily Progress Note Admit Date: 10/30/2021 Hospital Day 4 days Active Hospital Problems Diagnosis ??? Severe protein-calorie malnutrition ??? Pancreatic adenocarcinoma ??? Solid nodule of lung less than 6 mm in diameter ??? Acute on chronic blood loss anemia ??? Duodenal ulcer Resolved Hospital Problems No resolved problems to display. 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 PMH Active Non-Hospital Problems Diagnosis ??? Diabetes mellitus ??? Hypertension ??? Malignant neoplasm of head of pancreas ??? Jaundice ??? CIS - Dyslipidemia ??? CIS - Non ST elevation myocardial infarction ??? CIS - Tobacco abuse Inpatient Medications: Scheduled ??? sodium chloride 0.9 % (flush) 5 mL Intravenous BID ??? magnesium sulfate 2 g Intravenous Once ??? insulin glargine (Lantus;Semglee) (100 unit/mL) subcutaneous injection 5 Units Subcutaneous Daily ??? insulin lispro 0-8 Units Subcutaneous TID WC ??? metoproloL tartrate 12.5 mg Oral 2 times per day ??? pantoprazole EC 40 mg Oral Daily ??? sodium chloride 0.9 % (flush) 5 mL Intravenous BID ??? insulin lispro 1-6 Units Subcutaneous TID AC ??? nicotine 1 patch Transdermal Daily And ??? Patch Verification 1 patch Transdermal BID And ??? nicotine 1 patch Transdermal Daily ??? losartan 37.5 mg Oral Daily ??? tamsulosin 0.8 mg Oral Daily ??? atorvastatin 40 mg Oral QPM Continuous infusions: ??? sodium chloride 0.9% 1,000 mL (11/03/21 1135) PRN: sodium chloride 0.9 % (flush), lidocaine, sodium chloride 0.9 % (flush), fentaNYL (PF), flumazeniL, naloxone, midazolam (PF), sodium chloride 0.9 % (flush), nicotine polacrilex, sodium chloride 0.9 % (flush), lidocaine, glucose 40% oral geL OR dextrose 10% OR glucagon Interval History: One BM in the afternoon with mild streaks of blood. Declined to eat lunch. Otherwise uneventful night. ROS: Review of Systems Constitutional: Positive for weight loss, malaise/fatigue and sleep disturbance. Negative for fever and chills. Respiratory: Positive for cough. Negative for shortness of breath. Genitourinary: Negative for stress incontinence and urge incontinence. Gastrointestinal: Negative for abdominal discomfort, vomiting, GERD and nausea. Cardiovascular: Negative for palpitations and leg edema. Neurological: Negative for headaches. Physical Exam Vitals Range last 24 hrs Temperature Temp: [36.5 ??C (97.7 ??F)-37.1 ??C (98.8 ??F)] Heart Rate Heart Rate: [63-74] Blood Pressure BP: (97-147)/(32-60) Respiratory Rate Resp: [9-18] SpO2 SpO2: [92 %-100 %] Intake/Output Summary (Last 24 hours) at 11/03/2021 1206 Last data filed at 11/03/2021 0653 Gross per 24 hour Intake -- Output 950 ml Net -950 ml Patient Vitals for the past 168 hrs: Weight 10/30/21 1350 49.9 kg (110 lb) Body mass index is 18.3 kg/m??. Physical Exam Constitutional: General: He is not in acute distress. Appearance: He is underweight. Eyes: Extraocular Movements: Extraocular movements intact. Pupils: Pupils are equal, round, and reactive to light. Cardiovascular: Rate and Rhythm: Normal rate and regular rhythm. Pulmonary: Effort: Pulmonary effort is normal. No respiratory distress. Breath sounds: No wheezing. Abdominal: General: Abdomen is flat. A surgical scar is present. Bowel sounds are normal. Palpations: Abdomen is soft. Neurological: Mental Status: He is alert and oriented to person, place, and time. Psychiatric: Mood and Affect: Mood normal. Behavior: Behavior is cooperative. Thought Content: Thought content normal. Studies reviewed in eDH. Remarkable for the following: LABS: Last 3 wbc, hgb, hct plt Recent Labs 11/03/21 0415 11/02/21 0213 11/01/21 1300 11/01/21 0238 WBC 8.4 7.4 -- 7.5 HGB 8.5* 9.3* 8.9* 8.6* HCT 25.7* 27.5* 26.1* 25.9* PLATELET 161 170 -- 195 Last 3 Lytes Recent Labs 11/03/21 0415 11/02/21 0213 11/01/21 0238 NA 136 139 136 K 3.8 4.0 4.2 CL 103 107 106 CO2 23 23 22 BUN 10 9* 9* CREATININE 0.79* 0.79* 0.69* Last Ca, Mg, Phos Recent Labs 11/03/21 0415 CALCIUM 7.8* PHOS 3.2 MAGNESIUM 0.68* FSBG Trend Recent Labs 11/03/21 1125 11/03/21 0736 11/02/21 1952 11/02/21 1640 11/02/21 1204 11/02/21 0827 11/01/21 2108 11/01/21 1705 11/01/21 1105 11/01/21 0730 POCGLU 167 183 103 114 92 218* 226* 150 186 164 MICRO: No results for input(s): URINECULTURE in the last 720 hours. No results for input(s): GRAMSTAIN, BFCX, LOWERRESPCX, TISSUECX in the last 720 hours. No results for input(s): BLOODCX in the last 720 hours. ECG: Recent Labs 10/30/21 1750 DIAGLINE Normal sinus rhythm Left bundle branch block Abnormal ECG When compared with ECG of 26-APR-2008 07:39, No significant change was found Confirmed by Sienna Tian ([email or web address]) on 10/31/2021 5:39:51 PM QTCCALC 457 VASCULAR: Recent Labs 10/06/21 1210 VBTEXTRPT Department: Vascular Surgery Lab Patient: [id number] (JOHN DUARTE) CPT: 34488 Referring Physician: GALINDO VALADEZ Indications: following carotid disease, ? progression Findings: ICA Proximal, Right PSV (cm/s): 149 EDV (cm/s): 31 ICA/CCA: 1.4 Plaque Structure: Echogenic Plaque Surface: Irregular %Stenosis: 16-49% ICA Distal, Right PSV (cm/s): 107 EDV (cm/s): 25 ICA/CCA: 1.0 CCA Distal, Right PSV (cm/s): 108 EDV (cm/s): 19 %Stenosis: Minimal CCA Proximal, Right PSV (cm/s): 129 EDV (cm/s): 19 External Carotid Artery, Right PSV (cm/s): 294 EDV (cm/s): 21 %Stenosis: >50% Vertebral, Right PSV (cm/s): 65 EDV (cm/s): 17 Direction of Flow: Antegrade ICA Proximal, Left PSV (cm/s): 370 EDV (cm/s): 98 ICA/CCA: 3.0 Plaque Structure: Echogenic Plaque Surface: Irregular %Stenosi s: 60-79% ICA Distal, Left PSV (cm/s): 108 EDV (cm/s): 32 ICA/CCA: 0.9 CCA Distal, Left PSV (cm/s): 122 EDV (cm/s): 17 %Stenosis: Minimal CCA Proximal, Left PSV (cm/s): 120 EDV (cm/s): 19 External Carotid Artery, Left PSV (cm/s): 270 EDV (cm/s): 28 %Stenosis: >50% Vertebral, Left PSV (cm/s): 86 EDV (cm/s): 19 Direction of Flow: Antegrade Interpretation: RIGHT: There is bulky irregular plaque in the proximal internal carotid artery causing 16-49% stenosis when compared to the more distal internal carotid artery. The bifurcation level is in the mid neck. No significant change compared to previous exam 09/13/2020. LEFT: There is bulky irregular plaque in the carotid bifurcation and proximal internal carotid artery causing 60-79% stenosis when compared to the more distal internal carotid artery. Mild progression compared to previous exam 09/13/2020 The bifurcation level is in the mid neck. Vertebral Artery Data: Patent vertebral arteries with normal antegrade Doppler waveforms and velocities bilaterally. Previous Carotid Studies: Date RIGHT ICA Stenosis PSV Ratio LEFT ICA Stenosis PSV Ratio 16-49% 78 1.10 16-49% 99 0.90 16-49% 120 1.50 50-69% 302 3.40 16-49% 137 1.50 50-69% 321 3.50 Current Exam 16-49% 149 1.40 50-79% 370 3.00 Electronically Signed by: JUDY STEINBERG on 2021-10-06 02:35:40 PM End of Report IMAGING: Results for orders placed or performed during the hospital encounter of 10/30/21 CT Guided Biopsy Lung (Exam End: 11/03/2021 9:12 AM) Impression Impression: Technically successful CT-guided core needle biopsy of the right lower lobe pulmonary nodule. Plan: * Chest x-ray now and in 2 hours. * To IR postprocedural recovery room * Discharge from IR when criteria are met Check Pilot(s): Resident/Fellow: Tammy Gaviria Attending: Candis Stallings Procedure/Teaching Attestation: I was present for the procedure. Moderate Sedation Attestation: I was present during the intra-service time as documented by IR nurse. Preliminary report signed by: Sergo Gaviria at 11/03/2021 9:16 AM I have personally reviewed the image(s) and the resident's interpretation and agree with the findings, Jaron Stallings DO at 11/03/2021 9:25 AM Thank you for letting us participate in the care of this patient. If you are a health care provider and have any questions regarding this report, please contact the number below. For patients who have questions please contact the health resident care technician that requested your imaging first. Chest One View (Exam End: 11/03/2021 10:14 AM) Impression No pneumothorax. Thank you for letting us participate in the care of this patient. If you are a health care provider and have any questions regarding this report, please contact the number below. For patients who have questions please contact the health resident care technician that requested your imaging first. Chest One View (Exam End: 11/03/2021 9:20 AM) Impression No pneumothorax. Thank you for letting us participate in the care of this patient. If you are a health care provider and have any questions regarding this report, please contact the number below. For patients who have questions please contact the health resident care technician that requested your imaging first. R Studies: TTE 10/30/2021 1. The left ventricle is normal in chamber size and wall thickness. Global LV systolic function is normal with an LVEF of 54% by 3D volumetric assessment. There is are septal wall motion abnormalities most consistent with LBBB. 2. The right ventricle appears normal in size and global systolic function. Estimated PASP is 25mmHg. 3. There is mild bi-atrial dilation. 4. There is at least moderate aortic regurgitation. EGD 10/30/2021 Scope revealed friable mass extending into duodenum with inability to pass gastroscopy beyond site. This was mildly oozing and thought to be suspected mass and source of bleeding. Hemospray was appliedfor temporizing bleed. PFTs 10/28/21 FVC Actual Pre-BD 3.54 L FEV1 Actual Pre-BD 2.14 L FEV1 / FVC Actual Pre-BD 60 % DLCO [facility] PRE-BD % of PRED 21 % Assessment: John Duarte is a 66-year-old male with a past medical history NIDDMII, HTN, HLD, CAD c/b NSTEMI (PCI to the LAD 2008), prior duodenal ulcer, tobacco use disorder, and a malignant neoplasm in the head of the pancreas who is being admitted to the Hospital Medicine service following a recent endoscopy with the intention to control a suspected GIB. Ruben is being admitted to the hospital in order to undergo expedited work-up for an identified pulmonary nodule thought to potentially represent a metastasis from an unknown site. Thoracic Surgery was consulted for a wedge resection of the lung to get a sufficient sample size to identify the tissue of the nodule. If this is not metastatic a Whipple procedure may prove to be curative, this hospitalization is to expedite work-up in order to move the time frame up for this procedure and potentially a cure for his cancer. IR is unable to perform this patient's Bx until 11/03/21, unfortunately it seems the pt will remain admitted until that time for expedited work-up. He is otherwise doing well, no further signs of bleeding and no acute complaints. Heme/Onc holding off on recommendations until tissue diagnosis of lung mass is obtained. D/c'ing Surg Onc consult as they are unlikely to perform Whipple during this hospitalization. Otherwise we will continue to monitor and have the pt NPO at 0000 on 11/03 in preparation forthis Bx. Pt's Hgbs remain stable without overt signs of bleeding, not concerned at this time for repeat bleeding from pancreatic mass. Tolerating PO well despite the intraluminal involvement of the pancreatic mass, will continue to monitor closely while we await upcoming Bx. The bloody BM may likely be old blood still in the GI tract as the pt hasn't had a bowel movement since he was admitted. His H/H is stable and will monitor future BMs for melena or BRBPR. Patient's mediport will be accessed for use to save from addition IV insertions. Patient completed CT-guided lung biopsy, was monitored in IR for 2 hours with a series of chest x-rays which did not demonstrate pneumothorax. He is clear from IR perspective for discharge. Anticipate discharge to home, cytopathology follow-up as an outpatient. 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 Will re-engage when we have tissue Dx. - Heme/Onc consulted for assistance with timing of potential planning of neoadjuvant chemotherapy, hold off until we have definitive tissue Dx as well ?? #Diabetes mellitus, on home insulin - Patient takes 10 units of Lantus daily, meal associated NovoLog - Moderate SSI + MAXIMO - Started on basal insulin at 5 units ?? #Tobacco Use Disorder - Current half pack a day smoker - Nicotine patch + lozenges ?? #Hypertension, chronic -Patient placed on his home losartan -Converted home metoprolol succinate to tartrate #Hyperlipidemia -Continue home atorvastatin #Urinary retention, chronic - Continue home tamsulosin #GERD #Hx duodenal ulcer/erosion bleed -Continue home pantoprazole #Hypocalcemia #Hypoalbuminemia - Normal when corrected for low albumin - Likely in the setting of poor PO intake IV access: implanted port Tubes/Drains: none DVT PPX: PPI Anticipated Disposition: Pending course Team Pager( Coverage 12/10): #[phone] PCP: LIBRADO Mcclendon [phone] To Howard, 11/03/2021 Associated attestation - Ava Victor MD - 11/03/2021 12:51 PM EDT Please see Dr. Howard's note for full details of the patient history of presentation and data. I have discussed, reviewed and agree with the documented History, Physical findings, Assessment and Plan of care. I have examined the patient myself and personally reviewed all studies. CT guided lung bx successful this AM. Pt medically stable and ready for d/c today. See d/c summary. Ava Victor MD [facility] Manav Palacios RN - 11/02/2021 6:29 PM EDT Illness Severity [x] Stable Patient Summary Reason for admission: Drop in Hgb, dark red stools concerned for GIB. Endoscopy showing mass extending into duodenum with bleeding. Also, new lung nodule found, potential metastatic disease. Relevant PMH: HTN, HLD, CAD c/b NSTEMI, duodenal ulcers, tobacco use, pancreatic malignant neoplasms. Significant 24 hour events: 11/02AM: VSS on RA. Had BM x1 w/ very minimal blood, team informed. Port accessed today by CRN.. Covered w/ insulin today, however skipped lunch. Spent a fair shift. Action List For VATS or Possible Whipple ? Monitoring for bloody stool Active T/S Hem onc consult for chemo planning NPO midnight Wednesday for CT guided lung biopsy on 11/03 @ 0730 Suraj Cobb RN - 11/02/2021 6:54 AM EDT Illness Severity [x] Stable [] Watcher [] Unstable Patient Summary Reason for admission: Drop in Hgb, dark red stools concerned for GIB. Endoscopy showing mass extending into duodenum with bleeding. Also, new lung nodule found, potential metastatic disease. Relevant PMH: HTN, HLD, CAD c/b NSTEMI, duodenal ulcers, tobacco use, pancreatic malignant neoplasms. Significant 24 hour events: 8PM: Pt is A/Ox4, VSS on RA not endorsing any pain. Lost IV access (leaking at insertion site), ok to leave out per MD (didn't want port accessed). Pt resting during the night. To Howard DO - 11/02/2021 6:25 AM EDT Hospital Medicine Attending Daily Progress Note Admit Date: 10/30/2021 Hospital Day 3 days Active Hospital Problems Diagnosis ??? Severe protein-calorie malnutrition ??? Pancreatic adenocarcinoma ??? Solid nodule of lung less than 6 mm in diameter ??? Acute on chronic blood loss anemia ??? Duodenal ulcer Resolved Hospital Problems No resolved problems to display. 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 H Active Non-Hospital Problems Diagnosis ??? Diabetes mellitus ??? Hypertension ??? Malignant neoplasm of head of pancreas ??? Jaundice ??? CIS - Dyslipidemia ??? CIS - Non ST elevation myocardial infarction ??? CIS - Tobacco abuse Inpatient Medications: Scheduled ??? [START ON 11/03/2021] insulin glargine (Lantus;Semglee) (100 unit/mL) subcutaneous injection 5 Units Subcutaneous Daily ??? insulin lispro 0-8 Units Subcutaneous TID WC ??? metoproloL tartrate 12.5 mg Oral 2 times per day ??? pantoprazole EC 40 mg Oral Daily ??? sodium chloride 0.9 % (flush) 5 mL Intravenous BID ??? insulin lispro 1-6 Units Subcutaneous TID AC ??? nicotine 1 patch Transdermal Daily And ??? Patch Verification 1 patch Transdermal BID And ??? nicotine 1 patch Transdermal Daily ??? losartan 37.5 mg Oral Daily ??? tamsulosin 0.8 mg Oral Daily ??? atorvastatin 40 mg Oral QPM Continuous infusions: PRN: sodium chloride 0.9 % (flush), nicotine polacrilex, sodium chloride 0.9 % (flush), lidocaine, glucose 40% oral geL OR dextrose 10% OR glucagon Interval History: Patient lost PIV overnight while NS infusing. MD did not want to access port to give NS, vascular access did not want to place new PIV and instead use port. Fluids held, no new PIV placed. ROS: Review of Systems Constitutional: Positive for weight loss, malaise/fatigue and sleep disturbance. Negative for fever and chills. Respiratory: Positive for cough. Negative for shortness of breath. Genitourinary: Negative for stress incontinence and urge incontinence. Gastrointestinal: Negative for abdominal discomfort, vomiting, GERD and nausea. Cardiovascular: Negative for palpitations and leg edema. Neurological: Negative for headaches. Physical Exam Vitals Range last 24 hrs Temperature Temp: [36.5 ??C (97.7 ??F)-37.5 ??C (99.5 ??F)] Heart Rate Heart Rate: [65-73] Blood Pressure BP: (121-145)/(49-54) Respiratory Rate Resp: [16-18] SpO2 SpO2: [92 %-96 %] Intake/Output Summary (Last 24 hours) at 11/02/2021 0927 Last data filed at 11/02/2021 0800 Gross per 24 hour Intake -- Output 1600 ml Net -1600 ml Patient Vitals for the past 168 hrs: Weight 10/30/21 1350 49.9 kg (110 lb) Body mass index is 18.3 kg/m??. Physical Exam Constitutional: General: He is not in acute distress. Appearance: He is underweight. Eyes: Extraocular Movements: Extraocular movements intact. Pupils: Pupils are equal, round, and reactive to light. Cardiovascular: Rate and Rhythm: Normal rate and regular rhythm. Pulmonary: Effort: Pulmonary effort is normal. No respiratory distress. Breath sounds: No wheezing. Abdominal: General: Abdomen is flat. A surgical scar is present. Bowel sounds are normal. Palpations: Abdomen is soft. Neurological: Mental Status: He is alert and oriented to person, place, and time. Psychiatric: Mood and Affect: Mood normal. Behavior: Behavior is cooperative. Thought Content: Thought content normal. Studies reviewed in eDH. Remarkable for the following: LABS: Last 3 wbc, hgb, hct plt Recent Labs 11/02/21 0213 11/01/21 1300 11/01/21 0238 10/31/21 0413 WBC 7.4 -- 7.5 8.5 HGB 9.3* 8.9* 8.6* 8.5* HCT 27.5* 26.1* 25.9* 24.5* PLATELET 170 -- 195 197 Last 3 Lytes Recent Labs 11/02/21 0213 11/01/21 0238 10/31/21 1355 NA 139 136 135 K 4.0 4.2 3.6 CL 107 106 103 CO2 22 23 BUN 9* 9* 9* CREATININE 0.79* 0.69* 0.67* Last Ca, Mg, Phos Recent Labs 11/02/21 0213 CALCIUM 7.8* PHOS 2.8 MAGNESIUM 0.72 FSBG Trend Recent Labs 11/02/21 0827 11/01/21 2108 11/01/21 1705 11/01/21 1105 11/01/21 0730 10/31/21 2014 10/31/21 1715 10/31/21 1512 10/31/21 1109 10/31/21 0731 POCGLU 218* 226* 150 186 164 185 183 165 140 126 MICRO: No results for input(s): URINECULTURE in the last 720 hours. No results for input(s): GRAMSTAIN, BFCX, LOWERRESPCX, TISSUECX in the last 720 hours. No results for input(s): BLOODCX in the last 720 hours. ECG: Recent Labs 10/30/21 1750 DIAGLINE Normal sinus rhythm Left bundle branch block Abnormal ECG When compared with ECG of 26-APR-2008 07:39, No significant change was found Confirmed by Sienna Tian ([id number]) on 10/31/2021 5:39:51 PM QTCCALC [id number] VASCULAR: Recent Labs 10/06/21 1210 [id number] Department: Vascular Surgery Lab Patient: [id number] (JOHN DUARTE) CPT: 68008 Referring Physician: GALINDO VALADEZ Indications: following carotid disease, ? progression Findings: ICA Proximal, Right PSV (cm/s): 149 EDV (cm/s): 31 ICA/CCA: 1.4 Plaque Structure: Echogenic Plaque Surface: Irregular %Stenosis: 16-49% ICA Distal, Right PSV (cm/s): 107 EDV (cm/s): 25 ICA/CCA: 1.0 CCA Distal, Right PSV (cm/s): 108 EDV (cm/s): 19 %Stenosis: Minimal CCA Proximal, Right PSV (cm/s): 129 EDV (cm/s): 19 External Carotid Artery, Right PSV (cm/s): 294 EDV (cm/s): 21 %Stenosis: >50% Vertebral, Right PSV (cm/s): 65 EDV (cm/s): 17 Direction of Flow: Antegrade ICA Proximal, Left PSV (cm/s): 370 EDV (cm/s): 98 ICA/CCA: 3.0 Plaque Structure: Echogenic Plaque Surface: Irregular %Stenosi s: 60-79% ICA Distal, Left PSV (cm/s): 108 EDV (cm/s): 32 ICA/CCA: 0.9 CCA Distal, Left PSV (cm/s): 122 EDV (cm/s): 17 %Stenosis: Minimal CCA Proximal, Left PSV (cm/s): 120 EDV (cm/s): 19 External Carotid Artery, Left PSV (cm/s): 270 EDV (cm/s): 28 %Stenosis: >50% Vertebral, Left PSV (cm/s): 86 EDV (cm/s): 19 Direction of Flow: Antegrade Interpretation: RIGHT: There is bulky irregular plaque in the proximal internal carotid artery causing 16-49% stenosis when compared to the more distal internal carotid artery. The bifurcation level is in the mid neck. No significant change compared to previous exam 09/13/2020. LEFT: There is bulky irregular plaque in the carotid bifurcation and proximal internal carotid artery causing 60-79% stenosis when compared to the more distal internal carotid artery. Mild progression compared to previous exam 09/13/2020 The bifurcation level is in the mid neck. Vertebral Artery Data: Patent vertebral arteries with normal antegrade Doppler waveforms and velocities bilaterally. Previous Carotid Studies: Date RIGHT ICA Stenosis PSV Ratio LEFT ICA Stenosis PSV Ratio 16-49% 78 1.10 16-49% 99 0.90 16-49% 120 1.50 50-69% 302 3.40 16-49% 137 1.50 50-69% 321 3.50 Current Exam 16-49% 149 1.40 50-79% 370 3.00 Electronically Signed by: JUDY STEINBERG on 2021-10-06 02:35:40 PM End of Report IMAGING: No results found for this visit on 10/30/21. OTHER Studies: TTE 10/30/2021 1. The left ventricle is normal in chamber size and wall thickness. Global LV systolic function is normal with an LVEF of 54% by 3D volumetric assessment. There is are septal wall motion abnormalities most consistent with LBBB. 2. The right ventricle appears normal in size and global systolic function. Estimated PASP is 25mmHg. 3. There is mild bi-atrial dilation. 4. There is at least moderate aortic regurgitation. EGD 10/30/2021 Scope revealed friable mass extending into duodenum with inability to pass gastroscopy beyond site. This was mildly oozing and thought to be suspected mass and source of bleeding. Hemospray was appliedfor temporizing bleed. PFTs 10/28/21 FVC Actual Pre-BD 3.54 L FEV1 Actual Pre-BD 2.14 L FEV1 / FVC Actual Pre-BD 60 % DLCO [facility] PRE-BD % of PRED 21 % Assessment: John Duarte is a 66-year-old male with a past medical history NIDDMII, HTN, HLD, CAD c/b NSTEMI (PCI to the LAD 2008), prior duodenal ulcer, tobacco use disorder, and a malignant neoplasm in the head of the pancreas who is being admitted to the Hospital Medicine service following a recent endoscopy with the intention to control a suspected GIB. Ruben is being admitted to the hospital in order to undergo expedited work-up for an identified pulmonary nodule thought to potentially represent a metastasis from an unknown site. Thoracic Surgery was consulted for a wedge resection of the lung to get a sufficient sample size to identify the tissue of the nodule. If this is not metastatic a Whipple procedure may prove to be curative, this hospitalization is to expedite work-up in order to move the time frame up for this procedure and potentially a cure for his cancer. IR is unable to perform this patient's Bx until 11/03/21, unfortunately it seems the pt will remain admitted until that time for expedited work-up. He is otherwise doing well, no further signs of bleeding and no acute complaints. Heme/Onc holding off on recommendations until tissue diagnosis of lung mass is obtained. D/c'ing Surg Onc consult as they are unlikely to perform Whipple during this hospitalization. Otherwise we will continue to monitor and have the pt NPO at 0000 on 11/03 in preparation forthis Bx. Pt's Hgbs remain stable without overt signs of bleeding, not concerned at this time for repeat bleeding from pancreatic mass. Tolerating PO well despite the intraluminal involvement of the pancreatic mass, will continue to monitor closely while we await upcoming Bx. The bloody BM may likely be old blood still in the GI tract as the pt hasn't had a bowel movement since he was admitted. His H/H is stable and he will save any future BMs to check for melena or BRBPR. Patient's mediport will be accessed for use to save from addition IV insertions. 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 Will re-engage when we have tissue Dx. - Heme/Onc consulted for assistance with timing of potential planning of neoadjuvant chemotherapy, hold off until we have definitive tissue Dx as well ?? #Diabetes mellitus, on home insulin - Patient takes 10 units of Lantus daily, meal associated NovoLog - Moderate SSI + MAXIMO - Started on basal insulin at 5 units ?? #Tobacco Use Disorder - Current half pack a day smoker - Nicotine patch + lozenges ?? #Hypertension, chronic -Patient placed on his home losartan -Converted home metoprolol succinate to tartrate #Hyperlipidemia -Continue home atorvastatin #Urinary retention, chronic - Continue home tamsulosin #GERD #Hx duodenal ulcer/erosion bleed -Continue home pantoprazole #Hypocalcemia #Hypoalbuminemia - Normal when corrected for low albumin - Likely in the setting of poor PO intake IV access: implanted port Tubes/Drains: none DVT PPX: PPI Anticipated Disposition: Pending course Team Pager( Coverage 12/10): #[phone] PCP: LIBRADO Mcclendon [phone] To Howard, 11/02/2021 Associated attestation - Ava Victor MD - 11/02/2021 11:45 AM EDT Please see Dr. Howard's note for full details of the patient history of presentation and data. I have discussed, reviewed and agree with the documented History, Physical findings, Assessment and Plan of care. I have examined the patient myself and personally reviewed all studies. In addition, I certify that I am a [facility] credentialed attending physician with admitting privileges and that the patient meets or has met medical necessity to require an inpatient IPI level of care meeting a minimum of two midnights or is on the [facility] inpatient only procedure list (status C) due to: ABLA 2/2 UGIB from tumor invasion of duodenum. 66y/o M with ABLA due to UGIB 2/2 likely tumor invasion into duodenum. H/H remains stable. Awaiting CT guided biopsy of pulmonary nodule tomorrow. NPO after midnight. Pt must have IV access and port access is appropriate. Orders placed this AM. [facility]/01/[facility]21 6:35 PM EDT Illness Severity [x] Stable Patient Summary Reason for admission: Drop in Hgb, dark red stools concerned for GIB. Endoscopy showing mass extending into duodenum with bleeding. Also, new lung nodule found, potential metastatic disease. Relevant PMH: HTN, HLD, CAD c/b NSTEMI, duodenal ulcers, tobacco use, pancreatic malignant neoplasms. Significant 24 hour events: 11/01AM: VSS on RA. Reported BM x1 w/ blood, team informed. 0.9%NS continues @ 100ml/hr. PRN NicotineLozenges ordered and available when needed. Spent a fair shift. Action List For VATS or Possible Whipple ? Monitoring for bloody stool Active T/S Hem onc consult for chemo planning For CT guided lung biopsy on 11/03 @ 0730 Melo Ambrose MD - 11/01/2021 7:32 AM EDT Hospital Medicine Attending Daily Progress Note Admit Date: 10/30/2021 Hospital Day 2 days Active Hospital Problems Diagnosis ??? Severe protein-calorie malnutrition ??? Pancreatic adenocarcinoma ??? Solid nodule of lung less than 6 mm in diameter ??? Acute on chronic blood loss anemia ??? Duodenal ulcer Resolved Hospital Problems No resolved problems to display. 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 PMH Active Non-Hospital Problems Diagnosis ??? Diabetes mellitus ??? Hypertension ??? Malignant neoplasm of head of pancreas ??? Jaundice ??? CIS - Dyslipidemia ??? CIS - Non ST elevation myocardial infarction ??? CIS - Tobacco abuse Inpatient Medications: Scheduled ??? insulin lispro 0-8 Units Subcutaneous TID WC ??? metoproloL tartrate 12.5 mg Oral 2 times per day ??? pantoprazole EC 40 mg Oral Daily ??? sodium chloride 0.9 % (flush) 5 mL Intravenous BID ??? insulin lispro 1-6 Units Subcutaneous TID AC ??? nicotine 1 patch Transdermal Daily And ??? Patch Verification 1 patch Transdermal BID And ??? nicotine 1 patch Transdermal Daily ??? losartan 37.5 mg Oral Daily ??? tamsulosin 0.8 mg Oral Daily ??? atorvastatin 40 mg Oral QPM Continuous infusions: ??? sodium chloride 0.9% 100 mL/hr (10/31/21 0841) PRN: nicotine polacrilex, sodium chloride 0.9 % (flush), lidocaine, glucose 40% oral geL OR dextrose 10% OR glucagon Interval History: - Prepared for IR guided lung Bx, unable to do this 10/31 and was given a diet - IR guided Bx now planned for 11/03/21 - Hgb stable no signs of bleeding - Feels well, tolerating PO w/o issue - Had bloody BM this AM, flushed it did not visualize ROS: Review of Systems Constitutional: Positive for weight loss, malaise/fatigue and sleep disturbance. Negative for fever and chills. Respiratory: Positive for cough. Negative for shortness of breath. Genitourinary: Negative for stress incontinence and urge incontinence. Gastrointestinal: Negative for abdominal discomfort, vomiting, GERD and nausea. Cardiovascular: Negative for palpitations and leg edema. Neurological: Negative for headaches. Physical Exam Vitals Range last 24 hrs Temperature Temp: [36.6 ??C (97.9 ??F)-36.9 ??C (98.4 ??F)] Heart Rate Heart Rate: [60-66] Blood Pressure BP: (120-156)/(46-61) Respiratory Rate Resp: [16-20] SpO2 SpO2: [92 %-96 %] Intake/Output Summary (Last 24 hours) at 11/01/2021 0738 Last data filed at 10/31/2021 2357 Gross per 24 hour Intake -- Output 700 ml Net -700 ml Patient Vitals for the past 168 hrs: Weight 10/30/21 1350 49.9 kg (110 lb) Body mass index is 18.3 kg/m??. Physical Exam Constitutional: General: He is not in acute distress. Appearance: He is underweight. Eyes: Extraocular Movements: Extraocular movements intact. Pupils: Pupils are equal, round, and reactive to light. Cardiovascular: Rate and Rhythm: Normal rate and regular rhythm. Pulmonary: Effort: Pulmonary effort is normal. No respiratory distress. Breath sounds: No wheezing. Abdominal: General: Abdomen is flat. A surgical scar is present. Bowel sounds are normal. Palpations: Abdomen is soft. Neurological: Mental Status: He is alert and oriented to person, place, and time. Psychiatric: Mood and Affect: Mood normal. Behavior: Behavior is cooperative. Thought Content: Thought content normal. Studies reviewed in eDH. Remarkable for the following: LABS: Last 3 wbc, hgb, hct plt Recent Labs 11/01/21 0238 10/31/21 0413 10/21/21 1215 WBC 7.5 8.5 10.0* HGB 8.6* 8.5* 8.9* HCT 25.9* 24.5* 27.1* PLATELET 195 197 249 Last 3 Lytes Recent Labs 11/01/21 0238 10/31/21 1355 10/31/21 0413 NA 136 135 133* K 4.2 3.6 3.4* CL 106 103 104 CO2 23 23 BUN 9* 9* 10 CREATININE 0.69* 0.67* 0.56* Last Ca, Mg, Phos Recent Labs 11/01/21 0238 CALCIUM 7.6* PHOS 2.6 MAGNESIUM 0.77 FSBG Trend Recent Labs 11/01/21 0730 10/31/21 2014 10/31/21 1715 10/31/21 1512 10/31/21 1109 10/31/21 0731 10/31/21 0636 10/31/21 0318 10/31/21 0009 10/30/21 2309 POCGLU 164 185 183 165 140 126 129 88 87 71 MICRO: No results for input(s): URINECULTURE in the last 720 hours. No results for input(s): GRAMSTAIN, BFCX, LOWERRESPCX, TISSUECX in the last 720 hours. No results for input(s): BLOODCX in the last 720 hours. ECG: Recent Labs 10/30/21 1750 DIAGLINE Normal sinus rhythm Left bundle branch block Abnormal ECG When compared with ECG of 26-APR-2008 07:39, No significant change was found Confirmed by Sienna Tian ([email or web address]) on 10/31/2021 5:39:51 PM QTCCALC 457 VASCULAR: Recent Labs 10/06/21 1210 VBTEXTRPT Department: Vascular Surgery Lab Patient: [id number] (JOHN DUARTE) CPT: 58183 Referring Physician: GALINDO VALADEZ Indications: following carotid disease, ? progression Findings: ICA Proximal, Right PSV (cm/s): 149 EDV (cm/s): 31 ICA/CCA: 1.4 Plaque Structure: Echogenic Plaque Surface: Irregular %Stenosis: 16-49% ICA Distal, Right PSV (cm/s): 107 EDV (cm/s): 25 ICA/CCA: 1.0 CCA Distal, Right PSV (cm/s): 108 EDV (cm/s): 19 %Stenosis: Minimal CCA Proximal, Right PSV (cm/s): 129 EDV (cm/s): 19 External Carotid Artery, Right PSV (cm/s): 294 EDV (cm/s): 21 %Stenosis: >50% Vertebral, Right PSV (cm/s): 65 EDV (cm/s): 17 Direction of Flow: Antegrade ICA Proximal, Left PSV (cm/s): 370 EDV (cm/s): 98 ICA/CCA: 3.0 Plaque Structure: Echogenic Plaque Surface: Irregular %Stenosi s: 60-79% ICA Distal, Left PSV (cm/s): 108 EDV (cm/s): 32 ICA/CCA: 0.9 CCA Distal, Left PSV (cm/s): 122 EDV (cm/s): 17 %Stenosis: Minimal CCA Proximal, Left PSV (cm/s): 120 EDV (cm/s): 19 External Carotid Artery, Left PSV (cm/s): 270 EDV (cm/s): 28 %Stenosis: >50% Vertebral, Left PSV (cm/s): 86 EDV (cm/s): 19 Direction of Flow: Antegrade Interpretation: RIGHT: There is bulky irregular plaque in the proximal internal carotid artery causing 16-49% stenosis when compared to the more distal internal carotid artery. The bifurcation level is in the mid neck. No significant change compared to previous exam 09/13/2020. LEFT: There is bulky irregular plaque in the carotid bifurcation and proximal internal carotid artery causing 60-79% stenosis when compared to the more distal internal carotid artery. Mild progression compared to previous exam 09/13/2020 The bifurcation level is in the mid neck. Vertebral Artery Data: Patent vertebral arteries with normal antegrade Doppler waveforms and velocities bilaterally. Previous Carotid Studies: Date RIGHT ICA Stenosis PSV Ratio LEFT ICA Stenosis PSV Ratio 16-49% 78 1.10 16-49% 99 0.90 16-49% 120 1.50 50-69% 302 3.40 16-49% 137 1.50 50-69% 321 3.50 Current Exam 16-49% 149 1.40 50-79% 370 3.00 Electronically Signed by: JUDY STEINBERG on 2021-10-06 02:35:40 PM End of Report IMAGING: No results found for this visit on 10/30/21. OTHER Studies: TTE 10/30/2021 1. The left ventricle is normal in chamber size and wall thickness. Global LV systolic function is normal with an LVEF of 54% by 3D volumetric assessment. There is are septal wall motion abnormalities most consistent with LBBB. 2. The right ventricle appears normal in size and global systolic function. Estimated PASP is 25mmHg. 3. There is mild bi-atrial dilation. 4. There is at least moderate aortic regurgitation. EGD 10/30/2021 Scope revealed friable mass extending into duodenum with inability to pass gastroscopy beyond site. This was mildly oozing and thought to be suspected mass and source of bleeding. Hemospray was appliedfor temporizing bleed. PFTs 10/28/21 FVC Actual Pre-BD 3.54 L FEV1 Actual Pre-BD 2.14 L FEV1 / FVC Actual Pre-BD 60 % DLCO UNC PRE-BD % of PRED 21 % Assessment: John Duarte is a 66-year-old male with a past medical history NIDDMII, HTN, HLD, CAD c/b NSTEMI (PCI to the LAD 2008), prior duodenal ulcer, tobacco use disorder, and a malignant neoplasm in the head of the pancreas who is being admitted to the Hospital Medicine service following a recent endoscopy with the intention to control a suspected GIB. Ruben is being admitted to the hospital in order to undergo expedited work-up for an identified pulmonary nodule thought to potentially represent a metastasis from an unknown site. Thoracic Surgery was consulted for a wedge resection of the lung to get a sufficient sample size to identify the tissue of the nodule. If this is not metastatic a Whipple procedure may prove to be curative, this hospitalization is to expedite work-up in order to move the time frame up for this procedure and potentially a cure for his cancer. IR is unable to perform this patient's Bx until 11/03/21, unfortunately it seems the pt will remain admitted until that time for expedited work-up. He is otherwise doing well, no further signs of bleeding and no acute complaints. Heme/Onc holding off on recommendations until tissue diagnosis of lung mass is obtained. D/c'ing Surg Onc consult as they are unlikely to perform Whipple during this hospitalization. Otherwise we will continue to monitor and have the pt NPO at 0000 on 11/03 in preparation forthis Bx. Pt's Hgbs remain stable without overt signs of bleeding, not concerned at this time for repeat bleeding from pancreatic mass. Tolerating PO well despite the intraluminal involvement of the pancreatic mass, will continue to monitor closely while we await upcoming Bx. The bloody BM this morningmay likely be old blood still in the GI tract as the pt hasn't had a bowel movement since he was admitted. Will f/u with a repeat H/H this afternoon to ensure stability. 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 Will re-engage when we have tissue Dx. - Heme/Onc consulted for assistance with timing of potential planning of neoadjuvant chemotherapy, hold off until we have definitive tissue Dx as well. ?? #Diabetes mellitus, on home insulin - Patient takes 10 units of Lantus daily, meal associated NovoLog - Moderate SSI + MAXIMO ?? #Tobacco Use Disorder - Current half pack a day smoker - Nicotine patch + lozenges ?? #Hypertension, chronic -Patient placed on his home losartan -Converted home metoprolol succinate to tartrate #Hyperlipidemia -Continue home atorvastatin #Urinary retention, chronic - Continue home tamsulosin #GERD -Continue home pantoprazole IV access: PIV, implanted port Tubes/Drains: none DVT PPX: PPI Anticipated Disposition: Pending course Team Pager( Coverage 12/10): #[phone] PCP: ILBRADO Mcclendon [phone] Melo Ambrose MD 11/01/2021 Associated attestation - Ava Victor MD - 11/01/2021 10:59 AM EDT Please see Dr. Ambrose's note for full details of the patient history of presentation and data. I have discussed, reviewed and agree with the documented History, Physical findings, Assessment and Plan of care. I have examined the patient myself and personally reviewed all studies. In addition, I certify that I am a [facility] credentialed attending physician with admitting privileges and that the patient meets or has met medical necessity to require an inpatient IPI level of care meeting a minimum of two midnights or is on the [facility] inpatient only procedure list (status C) due to: ABLA 2/2 UGIB 66y/o M with pancreatic adenocarcinoma admitted with ABLA 2/2 UGIB. EGD on showed likely tumor eroding into duodenum. H/H has remained stable since oozing intervened upon. Pt did have a maroon colored stool this morning; will need to monitor H/H and stool. It is possible it's old blood from previous bleed but pt also at high risk for re-bleed. Otherwise awaiting CT guided lung biopsy by IR on Wednesday - pulmonary nodules with concern for possible mets. Ava Victor MD [facility] Renea Juárez - 11/01/2021 7:29 AM EDT Inpatient Hospital Medicine Progress Note Active Hospital Problems: Hospital Day 2 days Active Hospital Problems Diagnosis ??? Severe protein-calorie malnutrition ??? Pancreatic adenocarcinoma ??? Solid nodule of lung less than 6 mm in diameter ??? Acute on chronic blood loss anemia ??? Duodenal ulcer Resolved Hospital Problems No resolved problems to display. ID: 66 y.o. male with a PMH significant for pancreatic adenocarcinoma, HTN, HLD, insulin controlled IIDM, CAD complicated by NTEMI. Interval Events: No events overnight. Tolerating PO diet with no abdominal pain, nausea, vomiting. No bowel movements. Physical Exam: Last value Range last 24 hrs Temperature Temp: 36.6 ??C (97.9 ??F) Temp: [36.6 ??C (97.9 ??F)-36.9 ??C (98.4 ??F)] Heart Rate Heart Rate: 65 Heart Rate: [60-66] Blood Pressure BP: 133/56 BP: (120-141)/(46-56) Respiratory Rate Resp: 16 Resp: [16-20] SpO2 SpO2: 92 % SpO2: [92 %-96 %] IO 10/31 07 - 11/01 07 In: - Out: 700 [Urine:700] Wt (last/admit) 49.9 kg (110 lb) 49.9 kg Admit Weight: 49.9 kg Patient Vitals for the past 168 hrs: Weight 10/30/21 1350 49.9 kg (110 lb) Ins/Outs: Intake/Output Summary (Last 24 hours) at 11/01/2021 0731 Last data filed at 10/31/2021 2357 Gross per 24 hour Intake -- Output 700 ml Net -700 ml GEN: Pleasant, Ill appearing. AAOx4/4. In NAD. HEENT: EOMI, PERRL, MMM. Slight scleral icterus. CARDS: S1/S2. No EHS/Murmurs/Heaves/Thrills. RESP: No increased WOB, No use of accessory muscles. CTAB; No wheezes, rhonchi, rales. ABDO: at supine + BS x4 ; soft, non-tender on superficial and deep palpation, non-distended, no obvious masses. No guarding/rigidity/rebound tenderness. - courvoisiers sign. EXT: No peripheral edema. Warm extremities. NEURO: No focal deficits SKIN: No obvious rashs/lesions/ecchymoses/petechiae Labs: CBC: Recent Labs 11/01/21 0238 10/31/21 0413 10/21/21 1215 WBC 7.5 8.5 10.0* HGB 8.6* 8.5* 8.9* PLATELET 195 197 249 Chemistry: Recent Labs 11/01/21 0238 10/31/21 1355 10/31/21 0413 NA 136 135 133* K 4.2 3.6 3.4* CL 106 103 104 CO2 22 23 23 BUN 9* 9* 10 CREATININE 0.69* 0.67* 0.56* GLUCOSE 170 87 92 Recent Labs 11/01/21 0238 10/31/21 1355 10/31/21 0413 CALCIUM 7.6* 8.1* 7.9* MAGNESIUM 0.77 -- 0.71 PHOS 2.6 -- 3.0 LFT's: Recent Labs 11/01/21 0238 10/31/21 0413 10/21/21 1215 10/14/21 1022 BILITOT 1.8* 2.1* 3.5* 5.2* BILIDIR 1.2* 1.4* -- 3.5* ALBUMIN 2.5* 2.6* 3.0* 2.9* ALKPHOS 345* 395* 672* 1,072* ALT 18 21 70* 123* AST 19 24 72* 161* Coags: Recent Labs 11/01/21 0238 10/31/21 0413 PT 13.4* 13.2* INR 1.2 1.2 PTT 28 27 Cardiac enzymes: No results for input(s): TROPONINT, CK, PROBNP in the last 7068 hours. Endocrine: No results for input(s): TSH, CORTISOL in the last 7068 hours. Invalid input(s): [id number] No results for input(s): HA1C in the last 7068 hours. Heme: No results for input(s): LDH, HAPTOGLOBIN, URICACID in the last 168 hours. Lipids: Imaging/Studies: No results found for this visit on 10/30/21. EKG: Normal sinus rhythm Left bundle branch block TTE: Interpretation Summary 1. The left ventricle is normal in chamber size and wall thickness. Global LV systolic function is normal with an LVEF of 54% by 3D volumetric assessment. There is are septal wall motion abnormalities most consistent with LBBB. 2. The right ventricle appears normal in size and global systolic function. Estimated PASP is 25mmHg. 3. There is mild bi-atrial dilation. 4. There is at least moderate aortic regurgitation. 5. See remainder of report for additional findings. No prior study available for Comparison. Pulmonary Function Testing 10/28/21 Result Value Ref Range ?? FVC Actual Pre-BD 3.54 L ?? FVC Pre-BD % of Predicted 101 % ?? FVC Predicted 3.52 L ?? FVC Pre-BD Z-Score 0.04 ? FVC Lower Limits of Normal 2.63 L ?? FEV1 Actual Pre-BD 2.14 L ?? FEV1 Pre-BD % of Predicted 78 % ?? FEV1 Predicted 2.73 L ?? FEV1 Pre-BD Z-Score -1.33 ? FEV1 Lower Limits of Normal 1.99 L ?? FEV1 / FVC Actual Pre-BD 60 % ?? FEV1/FVC Pre-BD Z-Score -2.08 ? FEV1 / FVC LLN 64 % ?? [id number] Actual Pre-BD 0.87 L/s ?? [id number] Pre-BD % of Predicted 39 % ?? [id number] Predicted 2.23 L/s ?? [id number] Pre-BD Z-Score -1.88 ? DLCO Hb Actual Pre-BD 5.82 mL/min/mmHg ?? DLCO Hb Pre-BD % of Predicted 27 % ?? DLCO Hb Pre-BD Z-Score -6.00 ? DLCO Hb Predicted 21.85 mL/min/mmHg ?? DLCO UNC ACT PRE-BD 4.61 mL/min/mmHg ?? DLCO UNC PRE-BD % of PRED 21 % ?? DLCO UNC PRE-BD Z-SCORE -6.77 % ?? DLCO UNC Predicted 21.85 mL/min/mmHg ?? DLCO/VA Actual Pre-BD 1.12 mL/min/mmHg/L ?? DLCO/VA Pre-BD % of Predicted 26 % ?? DLCO/VA Pre-BD Z-Score -5.53 ? DLCO/VA Predicted 4.24 mL/min/mmHg/L Scheduled Medications: ??? insulin lispro 0-8 Units Subcutaneous TID WC ??? metoproloL tartrate 12.5 mg Oral 2 times per day ??? pantoprazole EC 40 mg Oral Daily ??? sodium chloride 0.9 % (flush) 5 mL Intravenous BID ??? insulin lispro 1-6 Units Subcutaneous TID AC ??? nicotine 1 patch Transdermal Daily And ??? Patch Verification 1 patch Transdermal BID And ??? nicotine 1 patch Transdermal Daily ??? losartan 37.5 mg Oral Daily ??? tamsulosin 0.8 mg Oral Daily ??? atorvastatin 40 mg Oral QPM Infusing Medications: ??? sodium chloride 0.9% 100 mL/hr (10/31/21 0841) PRN Medications: nicotine polacrilex, sodium chloride 0.9 % (flush), lidocaine, glucose 40% oral geL OR dextrose 10% OR glucagon Assessment: 66 y.o. male with a PMH significant for pancreatic adenocarcinoma, HTN, HLD, insulin controlled IIDM, CAD complicated by NTEMI. On a staging CT chest for anticipated Whipple procedure Mr. Duarte was found to have mulitple 4-5 mmlung nodules suspicious for possible metastatic disease of his pancreatic adenocarcinoma. Initially scheduled for wedge resection of nodule for tissue diagnosis, however Thoracic surgery belives DLCO in the 20s is too low for single lung ventilation for VATS procedure. In communication with IR yesterday, they plan to do a CT guided biopsy the lesions on Wednesday11/03/21, however they noted that since the lesion is quite small it is possible that they will not obtain a useful biopsy. Plan for further cancer treatment will hinge on the tissue diagnosis of lung nodule. Options includeneoadjuvent then Whipple vs Whipple upfront followed by chemotherapy. Per Dr. Stevens's note will trend LFTs to see if bili is down trending which may sway treatment plan. Summary of Today's Plan (11/01/21): Plan by problem: #Pancreatic Head Adenocarcinoma #Suspected Pancreatic Adenocarcinoma Lung Metastases--RLL nodule #Suspected UGIB s/p EGD -S/p EGD, oozing friable mass in duodenum -Trend CBC, transfuse if Hgb<7 -IR to take biopsy on Wednesday11/03/21 -S/p PFTs -S/p TTE -S/p ECG - Consult Surg Onc re Whipple timing -Trend LFTs per Dr. Stevens (Surg Onc)--influence neoadjuvant vs post-Whipple chemotherapy - Heme onc consulted for chemo planning, scheduled appointment to start chemo next Wednesday11/07/[address] Streeter #Hypokalemia -Resolved, s/p repletion yesterday with potassium chloride -NS 100/hr maintenance fluid #IDDMII -Moderate sliding scale insulin and meal-associated insulin -Sugars well controlled #Tobacco use #Current smoker -Nicotine patch #Home Medications - C/w home Atorvastatin - C/w home Losartan - Change Metoprolol succinate to tartrate 12.5mg bid - C/w home Protonix - C/w home Tamsulosin - Home insulin 10 units daily # Routine - DVT prophy: Enoxaparin - Diet: Carb Control diet 60/60/75 CHO counting level 2 NPO diet (Give Meds) - L/T/D: Peripheral IV, chemo port - Dispo: - Code status: Attempt Cardiopulmonary Resuscitation - Inpatient # Discharge planning PCP LIBRADO Mcclendon [phone] Future Appointments Date Time Provider Department Center 11/03/2021 8:30 AM [facility] CT 5 [facility] RAD CT [facility] Rad 11/07/2021 9:00 AM Eric Streeter MD ST Hem Off [facility] 11/07/2021 9:30 AM [facility], ROOM [facility] 11/21/2021 9:00 AM Eric Streeter MD ST [facility] 11/21/2021 9:30 AM [facility], ROOM [facility] 12/05/2021 9:00 AM Eric Streeter MD [facility] 12/05/2021 9:30 AM [facility]ION, ROOM [facility] 12/19/2021 9:00 AM Eric Streeter MD ST Hem Off [facility] 12/19/2021 9:30 AM [facility], ROOM [facility] Hem Inf [facility] Tom Treviño MS3 Purple Team, Pager #[phone] Karon Carranza RN - 11/01/2021 5:39 AM EDT Illness Severity [x] Stable [] Watcher [] Unstable Patient Summary Reason for admission: Drop in Hgb, dark red stools concerned for GIB. Endoscopy showing mass extending into duodenum with bleeding. Also, new lung nodule found, potential metastatic disease. Relevant PMH: HTN, HLD, CAD c/b NSTEMI, duodenal ulcers, tobacco use, pancreatic malignant neoplasms. Significant 24 hour events: 812PM: Pt is A/Ox4, VSS on RA not endorsing any pain. IVF continued. Pt resting during the night. 8/12AM: VSS on RA. Allowed diet today. Covered w/ insulin as needed. Repletion of Mag and K+ done this am. Switched to 0.9%NS @ 100ml/hr. Spent a fair shift. Chemo plan & supportive medication: Baseline Weight: Most recent weight: Weight: 49.9 kg (110 lb) (10/30/21 1350) Neuro: WDL Neuro Checks: (See below) CV: WDL Telemetry: No Neurovasc: .WDL except, neurovascular assessment lower BLE N/T in toes VTE Prophylaxis: anticoagulant therapy Pulmonary: .WDL except, breath sounds O2 Device: None (Room air) GI: .WDL except, appearance/characteristics dark red stool LBM: 10/30/21 Fingerstick order: Yes : WDL Musculoskeletal: .WDL except, mobility Pain/Location: 0 (10/31/211999) / Mobility Plan: SBA Bed alarm sensitivity: Low Q2h turns [] Skin: .WDL except, all Nicotine patch on LUE Psych/Social: Action List For VATS or Possible Whipple ? Monitoring for bloody stool Active T/S Hem onc consult for chemo planning For CT guided lung biopsy on 11/03 @ 0730 Discharge Plan: Home meds in Rx [] Belongings in safe [] Consults: PT [] OT [] PEST CONTROL WORKER [] Last Flu vaccine: Last Covid Test Result: Situational Awareness & Contingency Planning Synthesis (Verbal Only) (Brief summary, ask questions, restate blackwell action/to do items) Manav Palacios RN - 10/31/2021 7:23 PM EDT Illness Severity [x] Stable Patient Summary Reason for admission: Drop in Hgb, dark red stools concerned for GIB. Endoscopy showing mass extending into duodenum with bleeding. Also, new lung nodule found, potential metastatic disease. Relevant PMH: HTN, HLD, CAD c/b NSTEMI, duodenal ulcers, tobacco use, pancreatic malignant neoplasms. Significant 24 hour events: 12AM: VSS on RA. Allowed diet today. Covered w/ insulin as needed. Repletion of Mag and K+ done this am. Switched to 0.9%NS @ 100ml/hr. Spent a fair shift. Action List For VATS or Possible Whipple ? Monitoring for bloody stool Active T/S Hem onc consult for chemo planning For CT guided lung biopsy on 11/03 @ 0730 Jeanine Pineda RN - 10/31/2021 5:10 PM EDT [facility] Name: JOHN DUARTE Date of : 1955 AGE: 66 y.o. Address: [address] [address] (home) [phone] (work) Mobile: Telephone Information: Referring Provider: Humberto Dumont REASON FOR VISIT: Order Questions Answers Is the patient on anticoagulant / antiplatelet therapy ? No Reason for exam and clinical history: bleeding pancreatic CA with lung nodules - favor biopsy of RLL4.7mm nodule. Low DLCO and VATS might not be an option so need IR. Is the patient taking any anticoagulants and/or antiplatelet meds? No Is patient awake, alert, and consentable? Yes Does patient need assist to stand? No Does Patient have any mobility limitations (e.g. spinal precautions) No Does patient require constant supervision? No Is patient over 450 lbs (200 kg) No Does patient have a pacemaker? No Does patient have a Chest Tube? No Is there a language / communication barrier? No Planned procedure: CT guided lung biopsy Labs to be performed day of procedure: No labs Sedation: Moderate (Conscious sedation) Prophylactic antibiotic : None Contrast: No contrast Additional medications for procedure: Lidocaine Planned access site: Right posterior back Position: Prone Consent: Pending Medications to discontinue (and days held): None Case Urgency:: G- Other (non E or F elective cases) No Known Allergies Pertinent PMH: Patient Active Problem List Diagnosis Code ??? CIS - Dyslipidemia ??? CIS - Non ST elevation myocardial infarction ??? CIS - Tobacco abuse ??? Jaundice R17 ??? Malignant neoplasm of head of pancreas C25.0 ??? Diabetes mellitus E11.9 ??? Hypertension I10 ??? Duodenal ulcer K26.9 ??? Severe protein-calorie malnutrition E43 ??? Pancreatic adenocarcinoma C25.9 ??? Solid nodule of lung less than 6 mm in diameter R91.1 ??? Acute on chronic blood loss anemia D62 Date/Procedure Meds Given/Comments Laboratory Results: Lab Results Component Value Date INR 1.2 10/31/2021 Lab Results Component Value Date CREATININE 0.67 (L) 10/31/2021 Lab Results Component Value Date K 3.6 10/31/2021 Lab Results Component Value Date PLATELET 197 10/31/2021 Larry Borrego PT - 10/31/2021 2:40 PM EDT 10/31/21 9910 Evaluation & Treatment Document Type contact Total Minutes, Physical Therapy 0 Comment, Session Not Performed Met with patient to dicuss role of PT and obtain social history. Patient is currently independent (ambulated 300' w/o AD) with mobility, reports independence with (I)ADLsotherwise. Patient is getting work up from multiple teams with potential for OR. Will continue to monitor patient while in the acute care setting. Please re-consult PT following a status change for follow up. Thank you. Social history as follows: Patient lives alone in a second level apartment in [place], [place]. He has 15stairs to enter. Patient is currently independent with all mobility and (I)ADLs, including driving. Reports one fall related to a syncopal episode, otherwise reports steadiness with all mobility without the use of a device. Larry Borrego, PT, DPT Pager: [phone] Physical Therapy Inpatient Rehabilitation Department Mariela Gregory OT - 10/31/2021 10:03 AM EDT 10/31/21 0910 Evaluation & Treatment Document Type contact Total Minutes, Occupational Therapy 0 Comment, Session Not Performed OT orders have been received, chart reviewed, patient is NPO for VATSor Whipple procedure today. Will plan to see patient post-op when he's ready. Mariela Gregory OT/L Pager [phone] Occupational Therapist Rehabilitation Department Patt Samayoa, RD - 10/31/2021 9:36 AM EDT Nutrition Initial Note John Duarte is a 66 y.o. male admitted with dark stools, acute on chronic anemia. Relevant medical history includes recently diagnosed pancreatic adenocarcinoma with recently discovered suspicious pulmonary nodule, HTN, hyperlipidemia, DM. Plan is for w/u for potential Whipple procedure. Reason for intervention: Low BMI Nutrition Recommendations: Continue carb control level 2 diet - small, frequent meals with protein source at each encouraged Glucerna supplements BID between meals Monitor blood sugars Monitor po intake Monitor lytes Monitor weight trends Pt meets criteria for severe protein-calorie malnutrition as outlined below Active Orders Diet Carb Control diet 60/60/75 CHO counting level 2 Frequency: Effective Now Number of Occurrences: Until Specified NPO diet (Give Meds) Frequency: Effective Midnight Number of Occurrences: Until Specified Lab Results Component Value Date NA 133 (L) 10/31/2021 K 3.4 (L) 10/31/2021 CL 104 10/31/2021 CO2 23 10/31/2021 BUN 10 10/31/2021 CREATININE 0.56 (L) 10/31/2021 ESTGFR 108 10/31/2021 MAGNESIUM 0.71 10/31/2021 CALCIUM 7.9 (L) 10/31/2021 PHOS 3.0 10/31/2021 AST 24 10/31/2021 ALT 21 10/31/2021 ALKPHOS 395 (H) 10/31/2021 BILITOT 2.1 (H) 10/31/2021 BILIDIR 1.4 (H) 10/31/2021 [id number] 10/21/2021 SFOLATE 14.6 10/21/2021 IRON 63 10/21/2021 Lab Results Component Value Date POCGLU 126 10/31/2021 POCGLU 129 10/31/2021 POCGLU 88 10/31/2021 POCGLU 87 10/31/2021 POCGLU 71 10/30/2021 POCGLU 248 (H) 10/30/2021 POCGLU 281 (H) 10/30/2021 POCGLU 150 10/30/2021 POCGLU 191 10/30/2021 Skin Status: Shift Pressure Injury Prevention Occiput: No Injury Thoracic Spine: No Injury Sacral: No Injury Ischial - left: No Injury Ischial - right: No Injury Heel - left: No Injury Heel - right: No Injury Elbow - left: No Injury Elbow - right: No Injury Device Sites: IV sites Relevant medications: NS@100 ml/hr, insulin lispro, protonix Last Bowel Movement: 10/30/21 Admit Weight: 49.9 kg Estimated body mass index is 18.3 kg/m?? as calculated from the following: Height as of this encounter: 165.1 cm (5' 5). Weight as of this encounter: 49.9 kg (110 lb). [place] Body Weight: 59.1kg Usual Body Weight: 125-130lbs Wt Readings from Last 10 Encounters: 10/30/21 49.9 kg (110 lb) 10/27/21 50.5 kg (111 lb 6.4 oz) 10/21/21 53.8 kg (118 lb 9.6 oz) 10/14/21 53.1 kg (117 lb) 10/06/21 52.6 kg (115 lb 14.4 oz) 09/30/21 52.6 kg (115 lb 14.4 oz) 06/19/21 54.4 kg (120 lb) 05/30/21 58.6 kg (129 lb 3.2 oz) 11/29/20 59.2 kg (130 lb 9.6 oz) 09/13/20 59 kg (130 lb) Pt with 18lb weight loss (14% body weight) in less than 6 months - clinically significant Patient Vitals for the past 168 hrs: Weight 10/30/21 1350 49.9 kg (110 lb) Assessment: Nutrition intake and intake history/Interview: Pt reports a decrease in po intake over the past months secondary to feeling of fullness, resulting in clinically significant weight loss. Typically eating 3-4 times a day, portion sizes about half of what he would eat at baseline. Using Boost diabetic sup plements [employer]ER; receptive to Glucerna while admitted (prefers chocolate). Also notes he does not have his upper dentures and will order softer foods. Estimated needs: Calories: 9488-3362 (30-35 kcal/kg) Protein: 75 grams (1.5g/kg) Nutrition Focused Physical Exam (NFPE): Not performed Protein-calorie Malnutrition: < or equal to 75% of estimated energy requirement for > or equalto 1 month and >7.5% weight loss in 3 months is consistent with severe protein-calorie malnutrition in the setting of chronic illness (Magali, JPEN J Parenteral Enteral Nutr. 2011; 36(3): 273-83). Acute on chronic Nutrition to continue to follow up while inpatient Patt Samayoa RD Pager #:[phone] Renea Juárez - 10/31/2021 7:26 AM EDT Inpatient Hospital Medicine Progress Note Active Hospital Problems: Hospital Day 1 day Active Hospital Problems Diagnosis ??? Duodenal ulcer Resolved Hospital Problems No resolved problems to display. ID: 66 y.o. male with a PMH significant for pancreatic adenocarcinoma, HTN, HLD, insulin controlled IIDM, CAD complicated by NTEMI. Interval Events: Blood glucose a bit high overnight in ~250s. Now normalized this morning. Feeling well overnight, denies abdominal pain, no bowel movements. Endorses hunger. Physical Exam: Last value Range last 24 hrs Temperature Temp: 37 ??C (98.6 ??F) Temp: [36.5 ??C (97.7 ??F)-37 ??C (98.6 ??F)] Heart Rate Heart Rate: 65 Heart Rate: [57-65] Blood Pressure BP: 144/55 BP: (142-161)/(53-58) Respiratory Rate Resp: 20 Resp: [18-20] SpO2 SpO2: 95 % SpO2: [95 %-100 %] IO 10/30 0701 - 10/31 0700 In: 240 [P.O.:240] Out: 800 [Urine:800] Wt (last/admit) 49.9 kg (110 lb) 49.9 kg Admit Weight: 49.9 kg Patient Vitals for the past 168 hrs: Weight 10/30/21 1350 49.9 kg (110 lb) Ins/Outs: Intake/Output Summary (Last 24 hours) at 10/31/2021 0726 Last data filed at 10/31/2021 0322 Gross per 24 hour Intake 240 ml Output 800 ml Net -560 ml GEN: Pleasant, Ill appearing. AAOx4/4. In NAD. HEENT: EOMI, PERRL, MMM. Slight scleral icterus.. CARDS: S1/S2. No EHS/Murmurs/Heaves/Thrills. RESP: No increased WOB, No use of accessory muscles. CTAB; No wheezes, rhonchi, rales. ABDO: at supine + BS x4 ; soft, non-tender on superficial and deep palpation, non-distended, no obvious masses. No guarding/rigidity/rebound tenderness. - courvoisiers sign. EXT: No peripheral edema. Warm extremities. NEURO: No focal deficits SKIN: No obvious rashs/lesions/ecchymoses/petechiae Labs: CBC: Recent Labs 10/31/213 10/21/21 12110/14/21 1022 WBC 8.5 10.0* 10.3* HGB 8.5* 8.9* 8.1* PLATELET 197 249 276 Chemistry: Recent Labs 10/31/213 10/21/21 1215 10/14/21 1022 NA 133* 138 133* K 3.4* 4.1 4.4 CL 104 103 98 CO2 23 26 23 BUN 10 13 18 CREATININE 0.56* 0.69* 0.74* GLUCOSE 92 164 268* Recent Labs 10/31/213 10/21/21 1215 10/14/21 1022 CALCIUM 7.9* 8.4* 8.7 MAGNESIUM 0.71 -- -- PHOS 3.0 -- -- LFT's: Recent Labs 10/31/2141210/21/21 1215 10/14/21 1022 BILITOT 2.1* 3.5* 5.2* BILIDIR 1.4* -- 3.5* ALBUMIN 2.6* 3.0* 2.9* ALKPHOS 395* 672* 1,072* ALT 21 70* 123* AST 24 72* 161* Coags: Recent Labs 10/31/21 0413 PT 13.2* INR 1.2 PTT 27 Cardiac enzymes: No results for input(s): TROPONINT, CK, PROBNP in the last 7068 hours. Endocrine: No results for input(s): TSH, CORTISOL in the last 7068 hours. Invalid input(s): [id number] No results for input(s): HA1C in the last 7068 hours. Heme: No results for input(s): LDH, HAPTOGLOBIN, URICACID in the last 168 hours. Lipids: Imaging/Studies: No results found for this visit on 10/30/21. EKG: Normal sinus rhythm Left bundle branch block TTE: Interpretation Summary 1. The left ventricle is normal in chamber size and wall thickness. Global LV systolic function is normal with an LVEF of 54% by 3D volumetric assessment. There is are septal wall motion abnormalities most consistent with LBBB. 2. The right ventricle appears normal in size and global systolic function. Estimated PASP is 25mmHg. 3. There is mild bi-atrial dilation. 4. There is at least moderate aortic regurgitation. 5. See remainder of report for additional findings. No prior study available for Comparison. Pulmonary Function Testing 10/28/21 Result Value Ref Range ?? FVC Actual Pre-BD 3.54 L ?? FVC Pre-BD % of Predicted 101 % ?? FVC Predicted 3.52 L ?? FVC Pre-BD Z-Score 0.04 ? FVC Lower Limits of Normal 2.63 L ?? FEV1 Actual Pre-BD 2.14 L ?? FEV1 Pre-BD % of Predicted 78 % ?? FEV1 Predicted 2.73 L ?? FEV1 Pre-BD Z-Score -1.33 ? FEV1 Lower Limits of Normal 1.99 L ?? FEV1 / FVC Actual Pre-BD 60 % ?? FEV1/FVC Pre-BD Z-Score -2.08 ? FEV1 / FVC LLN 64 % ?? [id number] Actual Pre-BD 0.87 L/s ?? [id number] Pre-BD % of Predicted 39 % ?? [id number] Predicted 2.23 L/s ?? [id number] Pre-BD Z-Score -1.88 ? DLCO Hb Actual Pre-BD 5.82 mL/min/mmHg ?? DLCO Hb Pre-BD % of Predicted 27 % ?? DLCO Hb Pre-BD Z-Score -6.00 ? DLCO Hb Predicted 21.85 mL/min/mmHg ?? DLCO UNC ACT PRE-BD 4.61 mL/min/mmHg ?? DLCO UNC PRE-BD % of PRED 21 % ?? DLCO UNC PRE-BD Z-SCORE -6.77 % ?? DLCO UNC Predicted 21.85 mL/min/mmHg ?? DLCO/VA Actual Pre-BD 1.12 mL/min/mmHg/L ?? DLCO/VA Pre-BD % of Predicted 26 % ?? DLCO/VA Pre-BD Z-Score -5.53 ? DLCO/VA Predicted 4.24 mL/min/mmHg/L Scheduled Medications: ??? metoproloL tartrate 12.5 mg Oral 2 times per day ??? pantoprazole EC 40 mg Oral Daily ??? sodium chloride 0.9 % (flush) 5 mL Intravenous BID ??? insulin lispro 1-6 Units Subcutaneous TID AC ??? insulin lispro 0-8 Units Subcutaneous TID WC ??? nicotine 1 patch Transdermal Daily And ??? Patch Verification 1 patch Transdermal BID And ??? nicotine 1 patch Transdermal Daily ??? losartan 37.5 mg Oral Daily ??? tamsulosin 0.8 mg Oral Daily ??? atorvastatin 40 mg Oral QPM Infusing Medications: ??? lactated Ringers 100 mL/hr (10/30/21 0652) PRN Medications: sodium chloride 0.9 % (flush), lidocaine, glucose 40% oral geL OR dextrose 10% OR glucagon Assessment: 66 y.o. male with a PMH significant for pancreatic adenocarcinoma, HTN, HLD, insulin controlled IIDM, CAD complicated by NTEMI. On a staging CT chest for anticipated Whipple procedure Mr. Duarte was found to have mulitple 4-5 mmlung nodules suspicious for possible metastatic disease of his pancreatic adenocarcinoma. Initially scheduled for wedge resection of nodule for tissue diagnosis, however Thoracic surgery now belives DLCO in the 20s is too low for single lung ventilation for VATS biopsy. They believe IR may be able to biopsy nodule percutaneously. Plan for further cancer treatment will hinge on the tissue diagnosis of lung nodule. Options includeneoadjuvent then Whipple vs Whipple upfront follow by chemotherapy. Consulted both surgical oncologyand oncology as inpatient so they can weigh in on any other workup necessary to expedite treatment while he is here. Per Dr. Stevens's note will trend LFTs to see if bili is down trending which may sway treatment plan. 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 Stevens (Surg Onc)--influence neoadjuvant vs post-Whipple chemotherapy if jaundicepersists -Keep NPO in anticipation of IR procedure -Heme onc consulted for chemo planning -Surg onc consulted for possible Whipple procedure additional workup #Hypokalemia -K+ 3.4 AM, repleated with potassium chloride 10 meq in 100 ml H20 3x -NS 100/hr maintenance #IDDMII -Moderate sliding scale insulin and meal-associated insulin #Tobacco Use -Nicotine patch #Home Medications - C/w home Atorvastatin - C/w home Losartan - Change Metoprolol succinate to tartrate 12.5mg bid - C/w home Protonix - C/w home Tamsulosin - Home insulin 10 units daily # Routine - DVT prophy: Enoxaparin - Diet: NPO diet (Give Meds) - L/T/D: Peripheral IV, chemo port - Dispo: - Code status: Attempt Cardiopulmonary Resuscitation - Inpatient # Discharge planning PCP LIBRADO Mcclendon [phone] @[email or web address]@ @[email or web address]@ @[email or web address]@ Future Appointments Date Time Provider Department Center 11/07/2021 9:00 AM Eric Streeter MD [facility] 11/07/2021 9:30 AM [facility], ROOM [facility] 11/21/2021 9:00 AM Eric Streeter MD [facility] 11/21/2021 9:30 AM [facility], ROOM [facility] 12/05/2021 9:00 AM Eric Streeter MD [facility] 12/05/2021 9:30 AM [facility], ROOM [facility] 12/19/2021 9:00 AM Eric Streeter MD [facility] 12/19/2021 9:30 AM [facility], ROOM [facility] Tom Treviño MS3 Purple Team, Pager #[phone] Gómez Alejandra MD - 10/31/2021 7:07 AM EDT Images from the original note were not included. DIVISION OF GASTROENTEROLOGY & HEPATOLOGY CONSULT PROGRESS NOTE NAME: John Duarte : 1955 INTERVAL: - seen by thoracic surgery on admission -- concerned that DLCO is low and therefore patient may not tolerate single lung ventilation for potential VATS biopsy -- team will discuss percutaneous biopsy with IR - plan to also consult surg/onc and heme/onc - NAEOs - VSS, no stool output recorded - Hgb stable at 8.5, LFTs downtrending from 8/2 Past Medical, Surgical, Family, Social Histories unchanged from initial consult note MEDICATIONS Medication list personally reviewed Current Meds: Scheduled: ??? metoproloL tartrate 12.5 mg Oral 2 times per day ??? pantoprazole EC 40 mg Oral Daily ??? sodium chloride 0.9 % (flush) 5 mL Intravenous BID ??? insulin lispro 1-6 Units Subcutaneous TID AC ??? insulin lispro 0-8 Units Subcutaneous TID WC ??? nicotine 1 patch Transdermal Daily And ??? Patch Verification 1 patch Transdermal BID And ??? nicotine 1 patch Transdermal Daily ??? losartan 37.5 mg Oral Daily ??? tamsulosin 0.8 mg Oral Daily ??? atorvastatin 40 mg Oral QPM Drips: ??? lactated Ringers 100 mL/hr (10/30/21 2316) PRN: sodium chloride 0.9 % (flush), lidocaine, glucose 40% oral geL OR dextrose 10% OR glucagon No Known Allergies OBJECTIVE Vitals: T Temp: [36.5 ??C (97.7 ??F)-37 ??C (98.6 ??F)] HR Heart Rate: [57-65] BP BP: (142-161)/(53-58) RR Resp: [18-20] SpO2 SpO2: [95 %-100 %] 10/30 07 - 10/31 0700 In: 240 [P.O.:240] Out: 800 [Urine:800] Wt Last 49.9 kg (110 lb) Admit 49.9 kg Physical Exam: CONST: Awake, alert, no acute distress EYES: sclerae anicteric ENT: moist mucous membranes, no oral thrush RESP: no increased work of breathing GI: abdomen soft, non-tender, non-distended, normoactive bowel sounds MSK: legs warm, palpable pulses b/l, no significant edema SKIN: No jaundice, rash, or bruising NEURO: Grossly intact, moves all extremities, no asterixis PSYCH: Pleasant, appropriate affect Labs: Labs personally reviewed in eDH CBC: Recent Labs 10/31/21412 WBC 8.5 HGB 8.5* PLATELET 197 MCV 108.9* RDWCV 18.3* COAG: Recent Labs 10/31/21412 PTT 27 INR 1.2 PT 13.2* CHEM: Recent Labs 10/31/21412 CREATININE 0.56* BUN 10 NA 133* K 3.4* CL 104 CO2 23 MAGNESIUM 0.71 CALCIUM 7.9* HEPATIC: Recent Labs 10/31/21412 BILITOT 2.1* BILIDIR 1.4* ALKPHOS 395* AST 24 ALT 21 ALBUMIN 2.6* INFLAMM: No results for input(s): CRP in the last 168 hours. IMAGING: Reports and images personally reviewed in eDH. Images independently interpreted. IR All Biopsy Procedures (Results Pending) ENDOSCOPY: Reports and images personally reviewed in eDH OSH RECORDS: Obtained and personally reviewed ASSESSMENT & PLAN: John Duarte is a 66 y.o.M PMHx pancreatic adenocarcinoma who presented for EGD today for melena likely 2/2 mass. ?? Unable to visualize D2 due to tumor ingrowth but given oozing and friable tissue seen on C sweep, suspect this is likely source of his melena. Hemospray temporizing agent but should monitor closely forongoing melena/H&H drop. If he does have signs of persistent bleeding, may consider Rad Onc consult for XRT to address tumor bleed. ?? In the mean time, recommend expediting workup of lung nodule to address if patient is candidate for Whipple, which if is the case should also be looked into for earlier timing. GI will follow along. Inthe mean time would recommend consultation of these services to aid in management plan. ? RECOMMENDATIONS: - Thoracic consult re: lung nodule wedge bx - Surg Onc consult re: Whipple timing - Heme-Onc consult - Monitor for bleeding, can consider Rad Onc consult - two large bore IVs - Active T&S - Monitor Hgb q12h or more frequently based assessment of bleeding. - Transfuse for Hgb <7 if no ongoing signs of bleeding - Please page GI with questions Patient seen with Dr. Alejandra. Thank you for involving us in the care of this patient. Please call/page should any further questions arise. Rachel Hernández MD PGY-4, Gastroenterology I have seen and evaluated the patient with Dr. Hernández. I have reviewed the fellow's history during the encounter and I agree with the details as written above. My physical examination confirms the above findings. The assessment and plan were formulated in discussion with me at the time of the encounter and I agree with them as documented. Gómez Alejandra MD, MS cloud systems administrator Scrap Baller, Gastroenterology and Hepatology To Howard DO - 10/31/2021 6:55 AM EDT Hospital Medicine Attending Daily Progress Note Admit Date: 10/30/2021 Hospital Day 1 day Active Hospital Problems Diagnosis ??? Duodenal ulcer Resolved Hospital Problems No resolved problems to display. 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 PMH Active Non-Hospital Problems Diagnosis ??? Diabetes mellitus ??? Hypertension ??? Malignant neoplasm of head of pancreas ??? Jaundice ??? CIS - Dyslipidemia ??? CIS - Non ST elevation myocardial infarction ??? CIS - Tobacco abuse Inpatient Medications: Scheduled ??? potassium chloride 10 mEq Intravenous Q2H ??? metoproloL tartrate 12.5 mg Oral 2 times per day ??? pantoprazole EC 40 mg Oral Daily ??? sodium chloride 0.9 % (flush) 5 mL Intravenous BID ??? insulin lispro 1-6 Units Subcutaneous TID AC ??? insulin lispro 0-8 Units Subcutaneous TID WC ??? nicotine 1 patch Transdermal Daily And ??? Patch Verification 1 patch Transdermal BID And ??? nicotine 1 patch Transdermal Daily ??? losartan 37.5 mg Oral Daily ??? tamsulosin 0.8 mg Oral Daily ??? atorvastatin 40 mg Oral QPM Continuous infusions: ??? sodium chloride 0.9% 100 mL/hr (10/31/21 0841) PRN: sodium chloride 0.9 % (flush), lidocaine, glucose 40% oral geL OR dextrose 10% OR glucagon Interval History: Night float increased losartan and tamsulosin to home dosing. Thoracic surgery paged and stated lung function was too poor for biopsy, consulted interventional radiology. ROS: Review of Systems Constitutional: Positive for weight loss, malaise/fatigue and sleep disturbance. Negative for fever and chills. Respiratory: Positive for cough. Negative for shortness of breath. Genitourinary: Negative for stress incontinence and urge incontinence. Gastrointestinal: Negative for abdominal discomfort, vomiting, GERD and nausea. Cardiovascular: Negative for palpitations and leg edema. Neurological: Negative for headaches. Physical Exam Vitals Range last 24 hrs Temperature Temp: [36.5 ??C (97.7 ??F)-37 ??C (98.6 ??F)] Heart Rate Heart Rate: [57-65] Blood Pressure BP: (136-161)/(50-58) Respiratory Rate Resp: [18-20] SpO2 SpO2: [94 %-100 %] Intake/Output Summary (Last 24 hours) at 10/31/2021 1213 Last data filed at 10/31/2021 1113 Gross per 24 hour Intake 240 ml Output 900 ml Net -660 ml Patient Vitals for the past 168 hrs: Weight 10/30/21 1350 49.9 kg (110 lb) Body mass index is 18.3 kg/m??. Physical Exam Constitutional: General: He is not in acute distress. Appearance: He is underweight. Eyes: Extraocular Movements: Extraocular movements intact. Pupils: Pupils are equal, round, and reactive to light. Cardiovascular: Rate and Rhythm: Normal rate and regular rhythm. Pulmonary: Effort: Pulmonary effort is normal. No respiratory distress. Breath sounds: No wheezing. Abdominal: General: Abdomen is flat. A surgical scar is present. Bowel sounds are normal. Palpations: Abdomen is soft. Neurological: Mental Status: He is alert and oriented to person, place, and time. Psychiatric: Mood and Affect: Mood normal. Behavior: Behavior is cooperative. Thought Content: Thought content normal. Studies reviewed in eDH. Remarkable for the following: LABS: Last 3 wbc, hgb, hct plt Recent Labs 10/31/21 0413 10/21/21 1215 10/14/21 1022 WBC 8.5 10.0* 10.3* HGB 8.5* 8.9* 8.1* HCT 24.5* 27.1* 25.2* PLATELET 197 249 276 Last 3 Lytes Recent Labs 10/31/21 0413 10/21/21 1215 10/14/21 1022 NA 133* 138 133* K 3.4* 4.1 4.4 CL 104 103 98 CO2 23 26 23 BUN 10 13 18 CREATININE 0.56* 0.69* 0.74* Last Ca, Mg, Phos Recent Labs 10/31/21 0413 CALCIUM 7.9* PHOS 3.0 MAGNESIUM 0.71 FSBG Trend Recent Labs 10/31/21 1109 10/31/21 0731 10/31/21 0636 10/31/21 0318 10/31/21 0009 10/30/21 2309 10/30/21 2110 10/30/21 1903 10/30/21 1617 10/30/21 1404 POCGLU 140 126 129 88 87 71 248* 281* 150 191 MICRO: No results for input(s): URINECULTURE in the last 720 hours. No results for input(s): GRAMSTAIN, BFCX, LOWERRESPCX, TISSUECX in the last 720 hours. No results for input(s): BLOODCX in the last 720 hours. ECG: Recent Labs 10/30/21 1750 DIAGLINE Normal sinus rhythm Left bundle branch block Abnormal ECG When compared with ECG of 26-APR-2008 07:39, No significant change was found QTCCALC 457 VASCULAR: Recent Labs 10/06/21 1210 VBTEXTRPT Department: Vascular Surgery Lab Patient: [id number] (JOHN DUARTE) CPT: 12035 Referring Physician: GALINDO VALADEZ Indications: following carotid disease, ? progression Findings: ICA Proximal, Right PSV (cm/s): 149 EDV (cm/s): 31 ICA/CCA: 1.4 Plaque Structure: Echogenic Plaque Surface: Irregular %Stenosis: 16-49% ICA Distal, Right PSV (cm/s): 107 EDV (cm/s): 25 ICA/CCA: 1.0 CCA Distal, Right PSV (cm/s): 108 EDV (cm/s): 19 %Stenosis: Minimal CCA Proximal, Right PSV (cm/s): 129 EDV (cm/s): 19 External Carotid Artery, Right PSV (cm/s): 294 EDV (cm/s): 21 %Stenosis: >50% Vertebral, Right PSV (cm/s): 65 EDV (cm/s): 17 Direction of Flow: Antegrade ICA Proximal, Left PSV (cm/s): 370 EDV (cm/s): 98 ICA/CCA: 3.0 Plaque Structure: Echogenic Plaque Surface: Irregular %Stenosi s: 60-79% ICA Distal, Left PSV (cm/s): 108 EDV (cm/s): 32 ICA/CCA: 0.9 CCA Distal, Left PSV (cm/s): 122 EDV (cm/s): 17 %Stenosis: Minimal CCA Proximal, Left PSV (cm/s): 120 EDV (cm/s): 19 External Carotid Artery, Left PSV (cm/s): 270 EDV (cm/s): 28 %Stenosis: >50% Vertebral, Left PSV (cm/s): 86 EDV (cm/s): 19 Direction of Flow: Antegrade Interpretation: RIGHT: There is bulky irregular plaque in the proximal internal carotid artery causing 16-49% stenosis when compared to the more distal internal carotid artery. The bifurcation level is in the mid neck. No significant change compared to previous exam 09/13/2020. LEFT: There is bulky irregular plaque in the carotid bifurcation and proximal internal carotid artery causing 60-79% stenosis when compared to the more distal internal carotid artery. Mild progression compared to previous exam 09/13/2020 The bifurcation level is in the mid neck. Vertebral Artery Data: Patent vertebral arteries with normal antegrade Doppler waveforms and velocities bilaterally. Previous Carotid Studies: Date RIGHT ICA Stenosis PSV Ratio LEFT ICA Stenosis PSV Ratio 16-49% 78 1.10 16-49% 99 0.90 16-49% 120 1.50 50-69% 302 3.40 16-49% 137 1.50 50-69% 321 3.50 Current Exam 16-49% 149 1.40 50-79% 370 3.00 Electronically Signed by: JUDY STEINBERG on 2021-10-06 02:35:40 PM End of Report IMAGING: No results found for this visit on 10/30/21. OTHER Studies: TTE 10/30/2021 1. The left ventricle is normal in chamber size and wall thickness. Global LV systolic function is normal with an LVEF of 54% by 3D volumetric assessment. There is are septal wall motion abnormalities most consistent with LBBB. 2. The right ventricle appears normal in size and global systolic function. Estimated PASP is 25mmHg. 3. There is mild bi-atrial dilation. 4. There is at least moderate aortic regurgitation. EGD 10/30/2021 Scope revealed friable mass extending into duodenum with inability to pass gastroscopy beyond site. This was mildly oozing and thought to be suspected mass and source of bleeding. Hemospray was appliedfor temporizing bleed. PFTs 10/28/21 FVC Actual Pre-BD 3.54 L FEV1 Actual Pre-BD 2.14 L FEV1 / FVC Actual Pre-BD 60 % DLCO [facility] PRE-BD % of PRED 21 % Assessment: John Duarte is a 66-year-old male with a past medical history NIDDMII, HTN, HLD, CAD c/b NSTEMI (PCI to the LAD 2008), prior duodenal ulcer, tobacco use disorder, and a malignant neoplasm in the head of the pancreas who is being admitted to the Hospital Medicine service following a recent endoscopy with the intention to control a suspected GIB. Ruben is being admitted to the hospital in order to undergo expedited work-up for an identified pulmonary nodule thought to potentially represent a metastasis from an unknown site. Thoracic Surgery was consulted for a wedge resection of the lung to get a sufficient sample size to identify the tissue of the nodule. If this is not metastatic a Whipple procedure may prove to be curative, this hospitalization is to expedite work-up in order to move the time frame up for this procedure and potentially a cure for his cancer. The patient was evaluated by thoracic surgery, and his pulmonary function tests likely preclude ability to perform a wedge resection. Thoracic surgery recommended that interventional radiology be consulted for possibility of percutaneous biopsy. Consult has been placed in IR is aware of the patient, we appreciate their assessment and recommendations. Consults were placed to both surgical oncology andoncology inpatient, so the services are aware of his case and can potentially expedite his neoadjuvant chemotherapy plus or minus Whipple procedure. Plan: #Pancreatic Head Adenocarcinoma #Suspected Pancreatic Adenocarcinoma Lung Metastases #Suspected UGIB s/p EGD - Hold home aspirin - S/p EGD 10/30 w/ hemospray to temporize oozing mass now extending into duodenum - Trending CBCs, will transfuse for Hgb < 7 - Requires w/u of lung mass prior to intervention of pancreatic adenocarcinoma - Thoracic Surgery consulted; wedge resection precluded by PFTs - IR consulted and aware, will assess patient for potential of perc biopsy - Surg Onc consulted for timing of Whipple procedure (this hospitalization vs outpatient) - Heme/Onc consulted for assistance with timing of potential planning of neoadjuvant chemotherapy ?? #Diabetes mellitus, on home insulin - Patient takes 10 units of Lantus daily, meal associated NovoLog - Moderate SSI + MAXIMO ?? #Tobacco Use Disorder - Current half pack a day smoker - Nicotine patch ?? #Hypertension, chronic -Patient placed on his home losartan -Converted home metoprolol succinate to tartrate #Hyperlipidemia -Continue home atorvastatin #Urinary retention, chronic - Continue home tamsulosin #GERD -Continue home pantoprazole IV access: PIV, implanted port Tubes/Drains: none DVT PPX: PPI Anticipated Disposition: Pending course Team Pager(MD Coverage 12/10): #[phone] PCP: LIBRADO Mcclendon [phone] To Howard, DO 10/31/2021 Associated attestation - Sloane Kuo MD - 10/31/2021 3:51 PM EDT Attending Staff Documentation I have examined the patient myself on 10/31/2021 and reviewed all labs and studies personally. Please see Dr. Howard's documentation for details of the patient history of presentation and data. I have discussed, reviewed and agree with the documented history with ROS, physical findings, labs/studies, assessment and plan of care. 66 y.o. male with recently diagnosed pancreatic adenocarcinoma (EGD/EUS/ERCP on 10/07 with bx and placement of biliary stent) followed by laparoscopy on 10/17 which showed no evidence of metastatic disease and initial plan for curative Whipple procedure, however staging CT Chest on 10/21 revealed bilateral sub-6 mm solid pulmonary nodules concerning for possible metastatic disease. He was referred to Thoracic Surgery for evaluation for VATS. In the meantime, patient developed melena with acute blood loss anemia requiring transfusions. He was referred to [facility] for urgent endoscopy performed on 10/30 which revealed bleeding from nearly obstructive pancreatic mass invading the duodenum. Hemospray was applied and hgb appears stable today without ongoing melena. In discussion with Thoracic Surgery, his low DLCO of 27% indicates that he is unlikely to tolerate single lung ventilation for VATS biopsy. Have discussed with IR, and plan for percutaneous CT guided biopsy of 4.7 mm nodule in the RLL. Timing TBD. Oncology and Surgical Oncology are consulted, though next steps are likely contingent on results of lung biopsy. IPI Certification I certify that I am a [facility] credentialed attending provider with admitting privileges and that the patient meets or has met medical necessity to require an inpatient IPI level of care meeting a minimum of two midnights or is on the [facility] inpatient only procedure list (status C) due to: acute on chronic anemia, upper GI bleed requiring endoscopy, pancreatic adenocarcinoma with possible metastatic disease,pulmonary nodule requiring biopsy Sloane Kuo MD 10/31/2021 Karon Carranza RN - 10/31/2021 5:50 AM EDT Illness Severity [x] Stable [] Watcher [] Unstable Patient Summary Reason for admission: Drop in Hgb, dark red stools concerned for GIB. Endoscopy showing mass extending into duodenum with bleeding. Also, new lung nodule found, potential metastatic disease. Relevant PMH: HTN, HLD, CAD c/b NSTEMI, duodenal ulcers, tobacco use, pancreatic malignant neoplasms. Significant 24 hour events: 8/11PM: Pt is A/Ox4, VSS on RA not endorsing any pain. BS rechecked at 2100, elevated over 240, insulin given per MAR and carbs covered from late dinner. 2300 blood sugar check 74. Juice given and checked in 30min, BS increased to 85. IVF continued. Pt NPO at midnight for possible procedure. Resting in room between nursing care. Chemo plan & supportive medication: Baseline Weight: Most recent weight: Weight: 49.9 kg (110 lb) (10/30/21 1350) Neuro: WDL Neuro Checks: (See below) CV: WDL Telemetry: No Neurovasc: .WDL except, neurovascular assessment lower BLE N/T in toes VTE Prophylaxis: anticoagulant therapy Pulmonary: .WDL except, breath sounds O2 Device: None (Room air) GI: .WDL except, stool dark red stool LBM: 10/30/21 Fingerstick order: Yes : WDL Musculoskeletal: .WDL except, mobility Pain/Location: 0 (10/30/21 2321) / Mobility Plan: SBA Bed alarm sensitivity: Low Q2h turns [] Skin: .WDL except, all Nicotine patch on LUE Psych/Social: Action List NPO 10/31 for VATS or Possible Whipple Monitoring for Bloody stool Active T/S Discharge Plan: Home meds in Rx [] Belongings in safe [] Consults: PT [] OT [] 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 VSS on RA, afebrile. AOx4. Oriented to room and call dickey. Meds given per MAY. Elevated BG - see results review - insulin given per MAY. Denies pain, discomfort. Bed alarm on for safety. documented in this encounter H&P Notes Sergo Gaviria MD - 10/31/2021 11:06 AM EDT Images from the original note were not included. INTERVENTIONAL RADIOLOGY FOCUSED H&P and PRE-PROCEDURE NOTE: PCP: LIBRADO Mcclendon Referring Provider: Humberto Dumont Planned Procedure: Planned procedure: CT guided lung biopsy Procedure Indication: History of pancreatic adenocarcinoma, multiple right pulmonary nodules of indeterminate origin, tissue diagnosis requested. Presenting Diagnosis/ Complaint: John Duarte is a 66 y.o. male with pertinent past medical history pancreatic adenocarcinoma, currently admitted due to suspected GI bleed after undergoing endoscopy. Chest CT on 10/21/21 demonstrated right pulmonary nodules of indeterminate origin. Thoracic surgery was consulted for wedge resection however due to patient's PFTs he is not a candidate for single lung ventilation. Interventional radiology consulted for CT-guided biopsy of one of these nodules while inpatient, to help with guiding future treatment and therapy. Past Medical/Surgical History: Patient Active Problem List Diagnosis Code ??? CIS - Dyslipidemia ??? CIS - Non ST elevation myocardial infarction ??? CIS - Tobacco abuse ??? Jaundice R17 ??? Malignant neoplasm of head of pancreas C25.0 ??? Diabetes mellitus E11.9 ??? Hypertension I10 ??? Duodenal ulcer K26.9 No past medical history on file. Past Surgical History: Procedure Laterality Date ? ? PRO DIAGNOSTIC BONE MARROW BIOPSIES & ASPIRATIONS Left 10/24/2018 ([facility]) BONE MARROW BIOPSY AND ASPIRATION; DIAGNOSTIC performed by Sergey Cook MD at [facility] ??? PRO ENDOSCOPIC US EXAM, ESOPH N/A 06/19/2021 UPPER EUS- ENDOSCOPIC ULTRASOUND performed by Gabriel Hilario MD at [facility] ??? PRO ENDOSCOPIC US EXAM, ESOPH N/A 10/07/2021 UPPER EUS- ENDOSCOPIC ULTRASOUND performed by Humberto Dumont MD at [facility] ??? PRO ERCP BALLOON DILATATION BILIARY/PANCREATIC DUCT OR AMPULLA EA DUCT 10/07/2021 ERCP, W BALLOON DILATION OF BILIARY/PANCREATIC DUCT performed by Humberto Dumont MD at [facility] ??? PRO ERCP STENT PLACEMENT BILIARY OR PANCREATIC DUCT 10/07/2021 ERCP, W PLCMNT ENDOSCOPIC STENT BILIARY OR PANCREATIC DUCT performed by Humberto Dumont MD at [facility] ??? PRO ERCP, SPHINCTEROTOMY N/A 10/07/2021 ERCP W/SPHINCTEROTOMY/PAPILLOTOMY performed by Humberto Dumont MD at [facility] ??? PRO FINE NEEDLE ASPIRATION BX W/US GDN 1ST LESION 10/07/2021 FINE NEEDLE ASPIRATION BIOPSY, INC US GUIDANCE; FIRST LESION performed by Humberto Dumont MD at [facility] ??? PRO INSERT TUNNELED CV CATH W SUBQ PORT, AGE 5 YRS OR OLDER N/A 10/17/2021 NAKITA\SILVIA.CATHETER,TUNNELED, WITH SQ PORT OR PUMP OVER 5YR (WRVU 6.04) performed by Jordan Stevens MD at [facility] ??? PRO LAP, DX SURGICAL ABD W/BIOPSY N/A 10/17/2021 LAPAROSCOPY,SURGICAL,WITH BIOPSY, SINGLE OR MULTIPLE (WRVU 5.44) performed by Scooby Stevens MD at [facility] ??? PRO UPGI ENDOSCOPY W/US FN BX 10/07/2021 EGD, W US GUIDED FINE NEEDLE ASPIRATION/BIOPSY performed by Humberto Dumont MD at [facility] ??? PRO UPPER GI ENDOSCOPY, CTRL BLEED N/A 10/30/2021 EGD, W CONTROL OF BLEEDING, ANY METHOD performed by Raul Rodrigez MD at [facility] Medications: No current facility-administered medications on file prior to encounter. Current Outpatient Medications on File Prior to Encounter Medication Sig Dispense Refill ??? pantoprazole EC (Protonix) 40 mg Tablet, Delayed Release (E.C.) Take 1 tablet by mouth daily. 90tablet 3 ??? metoprolol succinate XL (Toprol-XL) 25 mg Tablet Sustained Release 24 hr Take by mouth daily. ??? tamsulosin (Flomax) 0.4 mg Capsule Take 0.4 mg by mouth daily. ??? losartan (Cozaar) 25 mg Tablet Take 25 mg by mouth daily. ??? aspirin EC 81 mg Tablet, Delayed Release (E.C.) Take 81 mg by mouth daily. ??? atorvastatin (LIPITOR) 80 mg Tablet 40 mg. 0 ??? metFORMIN (GLUCOPHAGE) 850 mg Tablet 2 times daily. 0 ??? nitroGLYcerin (NITROSTAT) 0.[address] under the tongue. Allergies: Patient has no known allergies. Social History and Habits: Social History Socioeconomic History ??? Marital status: Spouse name: Not on file ??? Number of children: Not on file ??? Years of education: Not on file ??? Highest education level: Not on file Occupational History ??? Not on file Tobacco Use ??? Smoking status: Current Every Day Smoker Packs/day: 0.50 Types: Cigarettes ??? Smokeless tobacco: Never Used ??? Tobacco comment: knows he will have to quit Vaping Use ??? Vaping Use: Never used Substance and Sexual Activity ??? Alcohol use: Yes Comment: about 3 times a year ??? Drug use: Never ??? Sexual activity: Not on file Other Topics Concern ??? Not on file Social History Narrative ??? Not on file Social Determinants of Health Financial Resource Strain: Low Risk ??? Difficulty of Paying Living Expenses: Not very hard Food Insecurity: Unknown ??? Worried About Running Out of Food in the Last Year: Never true ??? Ran Out of Food in the Last Year: Not on file Transportation Needs: Unknown ??? Lack of Transportation (Medical): No ??? Lack of Transportation (Non-Medical): Not on file Physical Activity: Not on file Housing Stability: Low Risk ??? Unable to Pay for Housing in the Last Year: No ??? Number of Places Lived in the Last Year: 1 ??? Unstable Housing in the Last Year: No Significant Family History: Family History Problem Relation Age of Onset ??? Cancer Father gastrointestinal ??? Colorectal Cancer Maternal Aunt Pertinent ROS: as per HPI Labs: Lab Results Component Value Date WBC 8.5 10/31/2021 HCT 24.5 (L) 10/31/2021 PLATELET 197 10/31/2021 INR 1.2 10/31/2021 BUN 10 10/31/2021 CREATININE 0.56 (L) 10/31/2021 ALKPHOS 395 (H) 10/31/2021 AST 24 10/31/2021 ALBUMIN 2.6 (L) 10/31/2021 BILIDIR 1.4 (H) 10/31/2021 BILITOT 2.1 (H) 10/31/2021 ALT 21 10/31/2021 PROT 5.4 (L) 10/31/2021 K 3.4 (L) 10/31/2021 Imaging: Physical Exam: Pending (to be performed in angio the day of procedure) ASA: Pending (to be assessed in angio the day of procedure) Mallampati Class: Pending (to be assessed in angio the day of procedure) Assessment: 66 y.o. male with history of pancreatic adenocarcinoma and a chest CT on 10/21/21 demonstrated right pulmonary nodules of indeterminate origin. Thoracic surgery was consulted for wedge resection however due to patient's PFTs he is not a candidate for single lung ventilation. Interventional radiology consulted for CT-guided biopsy of one of these nodules while inpatient. Given location and small size of the pulmonary nodules, there is a high chance of low tissue yield or nondiagnostic biopsy. This discussion was had with the hospital medicine service but given no otherroutes for biopsy they wish to pursue CT-guided biopsy. Plan: Plan Planned procedure: CT guided lung biopsy Labs to be performed day of procedure: No labs Sedation: Moderate (Conscious sedation) Prophylactic antibiotic : None Contrast: No contrast Additional medications for procedure: Lidocaine Planned access site: Right posterior back Position: Prone Consent: Pending Medications to discontinue (and days held): None Cytopathology presence needed: No Case Urgency:: G- Other (non E or F elective cases) Sergo Gaviria MD Interventional Radiology PGY4 10/31/21 Melo Ambrose MD - 10/30/2021 4:09 PM EDT [facility] Medicine Purple Team Admission History and Physical Patient Name: John Duarte Service: [facility] Team, Pager #[phone] Responsible Attending: Sloane Kuo Primary Provider: LIBRADO Mcclendon [phone] ID: John Duarte is a 66-year-old male with a past medical history NIDDMII, HTN, HLD, CAD c/b NSTEMI (PCI to the LAD 2008), prior duodenal ulcer, tobacco use disorder, and a malignant neoplasm in the head of the pancreas who is being admitted to the [facility] Medicine service following a recent endoscopy with the intention to control a suspected GIB. History of Present Illness: Ruben initially had a bout of abdominal pain 06/10 and presented for further evaluation where a CT revealed 2 cystic pancreatic lesions. At the time he also underwent upper EUS showing these two lesions that appeared benign in nature, thought to be potentially due to IPMN. A few months following in 10/10 Ruben started to experience weight loss, difficulty controlling his DM, and jaundice. At that time a CT was repeated revealing biliary and pancreatic ductal dilation thought to be potentially due to a new mass vs inflammatory process. Repeat upper EUS showed a pancreatic mass that was subsequently biopsied and showed adenocarcinoma. Diagnostic laparoscopy was soon performed which showed no evidence of metastatic disease and there was the thought that this tumor could potentially be resectable via Whipple procedure. During a recent office visit with his oncologist the patient was noted to have low Hgbs to 7 which was a significant drop from 8.2. He endorses experience new dark black stool and a dark red stool thatwas concerning for a GIB. [facility] where he received 1 unit of pRBCs and was transferred to [facility] for endoscopy and further expedited work-up. While in the endoscopy suite the scope noted a friable mass extending into the duodenum with inability to pass the scope beyond it. There was some mild oozing thought to be the source of the patient's bleed for which hemospray was applied to temporize it. Since that procedure he feels well without any acute complaints. He endorses recent weight lossand hematochezia but denies any fevers/chills, chest pain, dyspnea, abdominal pain, nausea/vomiting,hematuria, or LE edema. He is amenable to being admitted to the hospital for further work-up. Review of Systems: Montejo-negative unless otherwise noted in the HPI above Past Medical and Surgical History: Patient Active Problem List Diagnosis ??? Duodenal ulcer ??? Diabetes mellitus ??? Hypertension ??? Malignant neoplasm of head of pancreas ??? Jaundice ??? CIS - Dyslipidemia ??? CIS - Non ST elevation myocardial infarction 04/24/08 proximal 75% stenosis in LAD, cypher stent placed ??? CIS - Tobacco abuse started smoking 1994 when he was gifted a pipe Patient has cut down to 1 pack per (reported 04/24/08) Medications: No current facility-administered medications on file prior to encounter. Current Outpatient Medications on File Prior to Encounter Medication Sig Dispense Refill ??? pantoprazole EC (Protonix) 40 mg Tablet, Delayed Release (E.C.) Take 1 tablet by mouth daily. 90tablet 3 ??? metoprolol succinate XL (Toprol-XL) 25 mg Tablet Sustained Release 24 hr Take by mouth daily. ??? tamsulosin (Flomax) 0.4 mg Capsule Take 0.4 mg by mouth daily. ??? losartan (Cozaar) 25 mg Tablet Take 25 mg by mouth daily. ??? aspirin EC 81 mg Tablet, Delayed Release (E.C.) Take 81 mg by mouth daily. ??? atorvastatin (LIPITOR) 80 mg Tablet 40 mg. 0 ??? metFORMIN (GLUCOPHAGE) 850 mg Tablet 2 times daily. 0 ??? nitroGLYcerin (NITROSTAT) 0.[address] under the tongue. Allergies: No Known Allergies Family History Problem Relation Age of Onset ??? Cancer Father gastrointestinal ??? Colorectal Cancer Maternal Aunt Social History Socioeconomic History ??? Marital status: Spouse name: None ??? Number of children: None ??? Years of education: None ??? Highest education level: None Occupational History ??? None Tobacco Use ??? Smoking status: Current Every Day Smoker Packs/day: 0.50 Types: Cigarettes ??? Smokeless tobacco: Never Used ??? Tobacco comment: knows he will have to quit Vaping Use ??? Vaping Use: Never used Substance and Sexual Activity ??? Alcohol use: Yes Comment: about 3 times a year ??? Drug use: Never ??? Sexual activity: None Other Topics Concern ??? None Social History Narrative ??? None Social Determinants of Health Financial Resource Strain: Low Risk ??? Difficulty of Paying Living Expenses: Not very hard Food Insecurity: Unknown ??? Worried About Running Out of Food in the Last Year: Never true ??? Ran Out of Food in the Last Year: Not on file Transportation Needs: Unknown ??? Lack of Transportation (Medical): No ??? Lack of Transportation (Non-Medical): Not on file Physical Activity: Not on file Housing Stability: Low Risk ??? Unable to Pay for Housing in the Last Year: No ??? Number of Places Lived in the Last Year: 1 ??? Unstable Housing in the Last Year: No Vitals: Last value Range last 24 hrs Temperature Temp: 36.5 ??C (97.7 ??F) Temp: [36.5 ??C (97.7 ??F)] Heart Rate Heart Rate: 57 Heart Rate: [57] Blood Pressure BP: 161/58 BP: (146-161)/(54-58) Respiratory Rate Resp: 20 Resp: [18-20] SpO2 SpO2: 99 % SpO2: [99 %-100 %] Examination: General: Pleasant, articulate and attentive, in no acute distress HEENT: Normocephalic, atraumatic. Icteric sclerae. Extraocular movements intact, no nystagmus observed; pupils equal, round and reactive to light and accomodation. Oropharynx clear without lesions. Moist mucous membranes Neck: Normal range of motion, no lymphadenopathy, neck veins flat Chest: Symmetric chest wall expansion upon inspiration; no kyphoscoliosis Cor: Normal rate, regular rhythm; normal S1/S2, no S3; no murmurs or rubs appreciated Lungs: Breathing non-labored. Clear to auscultation Abdomen: Negative Courvoisier's sign. Non-distended, normal bowel sounds; soft, non-tender; no rebound, guarding or peritoneal signs Extremities: Warm, well perfused. No cyanosis, clubbing, or edema. 2+ peripheral pulses present in all four extremities Neurologic: Alert, oriented, cooperative; no focal deficits grossly. Skin: Warm, dry. Normal turgor. No rashes, lesions, petechia or purpura Access: Patient Lines/Drains/Airways Status Active Tubes/Lines/Drains Name Placement date Placement time Site Days Implanted Port - Single Lumen (non-apheresis) 10/17/21 1138 infraclavicular fossa, right power injectable port 10/17/21 1138 -- 13 Peripheral IV Line - Single Lumen 10/30/21 1407 median vein (underside of arm), right 22 gauge 10/30/21 1407 -- less than 1 Laboratory: CBC: Recent Labs 10/21/21 1215 10/14/21 1022 05/30/21 1159 WBC 10.0* 10.3* 7.4 HGB 8.9* 8.1* 13.0* PLATELET 249 276 146 Chemistry: Recent Labs 10/21/21 1215 10/14/21 1022 05/30/21 1159 NA 138 133* 138 K 4.1 4.4 4.7 CL 103 98 104 CO2 26 BUN 13 18 20 CREATININE 0.69* 0.74* 1.01 GLUCOSE 164 268* 143 Recent Labs 10/21/21 1215 10/14/21 1022 05/30/21 1159 CALCIUM 8.4* 8.7 9.3 LFT's: Recent Labs 10/21/21 1215 10/14/21 1022 05/30/21 1159 BILITOT 3.5* 5.2* 0.7 BILIDIR -- 3.5* -- ALBUMIN 3.0* 2.9* 4.0 ALKPHOS 672* 1,072* 74 ALT 70* 123* 14 AST 72* 161* 17 Coags: No results for input(s): PT, INR, PTT, FIBRINOGEN, DDIMER in the last 168 hours. Invalid input(s): THROMBIN TIME Cardiac enzymes: No results for input(s): TROPONINT, CK in the last 7068 hours. Endocrine: No results for input(s): TSH, CORTISOL in the last 7068 hours. Invalid input(s): [id number] Heme: No results for input(s): LDH, HAPTOGLOBIN, URICACID in the last 168 hours. Microbiology: Microbiology Results (last 7 days) No results found for the last 168 hours. Microbiology Results (last 6 months) No results found for the last 4380 hours. Imaging and Diagnostics: No results found for this visit on 10/30/21. Assessment and Plan: John Duarte is a 66-year-old male with a past medical history NIDDMII, HTN, HLD, CAD c/b NSTEMI (PCI to the LAD 2008), prior duodenal ulcer, tobacco use disorder, and a malignant neoplasm in the head of the pancreas who is being admitted to the Hospital Medicine service following a recent endoscopy with the intention to control a suspected GIB. Ruben is being admitted to the hospital in order to undergo expedited work-up for an identified pulmonary nodule thought to potentially represent a metastasis from an unknown site. Thoracic Surgery was consulted for a wedge resection of the lung to get a sufficient sample size to identify the tissue of the nodule. If this is not metastatic a Whipple procedure may prove to be curative, this hospitalization is to expedite work-up in order to move the time frame up for this procedure and potentially a cure for his cancer. Admit to Hospital Medicine for further care. #Pancreatic Head Adenocarcinoma #Suspected Pancreatic Adenocarcinoma Lung Metastases #Suspected UGIB s/p EGD - S/p EGD w/ hemospray to temporize the oozing mass now extending into the duodenum. - Trending CBCs, will transfuse for Hgb < 7 - Thoracic Surgery consulted, appreciate involvement and recs - Originally scheduled for VATS 10/31/21, will keep pt NPO at 0000 in anticipation of potentially able to get this procedure done while inpatient for expedited work-up - Surg Onc consulted for timing of Whipple procedure (this hospitalization vs outpatient) - Heme/Onc consulted for assistance with timing of potential planning of neoadjuvant chemotherapy #NIDDMII - Moderate SSI + MAXIMO #Tobacco Use Disorder - Nicotine patch #Home Medications - C/w home Atorvastatin - C/w home Losartan - Change Metoprolol succinate to tartrate 12.5mg bid - C/w home Protonix - C/w home Tamsulosin #FEN/PPx/Disposition: Fluids: LR at 100cc/hr Electrolytes: Will replete PRN Nutrition: Clear liquids, NPO at 0000 DVT PPx: C/I w/ bleed GI PPx: Prontonix Glycemic control: Moderate SSI + MAXIMO Disposition: Pending clinical course Code Status: Full Code Melo Ambrose MD Internal Medicine, PGY-3 [facility] Team Pager #[phone] 10/30/21 Associated attestation - Sloane Kuo MD - 10/31/2021 8:09 AM EDT Attending Staff Admission Documentation I certify that the patient requires: [x] inpatient care status due to acute on chronic anemia, upper GI bleed, pancreatic adenocarcinoma with possible metastatic disease, pulmonary nodule requiring VATS [] Observation Care I have examined the patient myself on 10/30/2021 and reviewed all labs and studies personally. Please see Dr. Ambrose's documentation for details of the patient history of presentation and data. I have discussed, reviewed and agree with the documented history with ROS, physical findings, labs/studies, assessment and plan of care. Renea Juárez - 10/30/2021 4:07 PM EDT [facility] Team Admission History and Physical Patient Name: John Duarte Service: [facility] Team Responsible Attending: Sloane Kuo Primary Provider: LIBRADO Mcclendon [phone] ID: John Duarte is a 66 y.o. male with a PMH significant for pancreatic adenocarcinoma, HTN, HLD, insulin controlled IIDM, CAD complicated by NTEMI. History of Present Illness: Mr. Duarte is a 66 y.o. male who was recently diagnosed with pancreatic adenocarcinoma and recently discovered suspicious pulmonary nodule presenting to for evaluation of dark stools and acute on chronic anemia. Mr. Duarte initially underwent upper endoscoyt in May after experiencing abdominal pain and a CT showed evidence of cystic pancreatic lesions. At that time the lesions appeared benign. Fourmonths later in September, he presented with weight loss, uncontrolled diabetes, and jaundice. CT was repeated which showed showed biliary and pancreatic ductal dilation and a new mass/ inflammation. Repeatupper endoscopy was completed with biopsy of the pancreatic head which showed adenocarcinoma. Dr. Stevnes performed a diagnostic laparoscopy on 10/17/21 which showed no evidence of metastatic disease and he considered the primary tumor to be resectable. However, cytology of acites fluid from laparoscopy showed rare atypical cells with immunoreactivity for monoclonal CEA. In preparation for a possible Whipple Procedure he underwent a CT chest which showed a suspicious lung nodule, planned to be resectedand examined for possible metastatic disease. Yesterday, Mr. Duarte received a blood transfusion as per Dr. Streeter (Hematology) after a CBC showing a Hgb of 7.7 at an outside laboratory. He reports having dark stools over the past few days, however last night after his blood transfusion they acutely worsened. Suspecting a UGIB, Dr. Streeter requested urgent upper endoscopy with GI today. GI believes primary tumor is oozing blood. He is now being admitted to medicine for observation and expedited workup for possible surgical resection of adenocarcinoma. Current smoker 1/2 ppd smoking history ~14 years. Has not taken home medications in the past two days due to transfusions and EGDs. Review of Systems: Review of Systems Constitutional: Positive for weight loss. Negative for chills and fever. Respiratory: Negative for cough, hemoptysis and shortness of breath. Cardiovascular: Negative for chest pain, palpitations and leg swelling. Gastrointestinal: Positive for blood in stool and melena. Negative for constipation, nausea and vomiting. Genitourinary: Negative for dysuria, hematuria and urgency. Neurological: Negative for dizziness. Past Medical and Surgical History: Patient Active Problem List Diagnosis ??? Duodenal ulcer ??? Diabetes mellitus ??? Hypertension ??? Malignant neoplasm of head of pancreas ??? Jaundice ??? CIS - Dyslipidemia ??? CIS - Non ST elevation myocardial infarction 04/24/08 proximal 75% stenosis in LAD, cypher stent placed ??? CIS - Tobacco abuse started smoking 1994 when he was gifted a pipe Patient has cut down to 1 pack per (reported 04/24/08) Medications: No current facility-administered medications on file prior to encounter. Current Outpatient Medications on File Prior to Encounter Medication Sig Dispense Refill ??? pantoprazole EC (Protonix) 40 mg Tablet, Delayed Release (E.C.) Take 1 tablet by mouth daily. 90tablet 3 ??? metoprolol succinate XL (Toprol-XL) 25 mg Tablet Sustained Release 24 hr Take by mouth daily. ??? tamsulosin (Flomax) 0.4 mg Capsule Take 0.4 mg by mouth daily. ??? losartan (Cozaar) 25 mg Tablet Take 25 mg by mouth daily. ??? aspirin EC 81 mg Tablet, Delayed Release (E.C.) Take 81 mg by mouth daily. ??? atorvastatin (LIPITOR) 80 mg Tablet 40 mg. 0 ??? metFORMIN (GLUCOPHAGE) 850 mg Tablet 2 times daily. 0 ??? nitroGLYcerin (NITROSTAT) 0.[address] under the tongue. Allergies: No Known Allergies Family History Problem Relation Age of Onset ??? Cancer Father gastrointestinal ??? Colorectal Cancer Maternal Aunt Social History Socioeconomic History ??? Marital status: Spouse name: None ??? Number of children: None ??? Years of education: None ??? Highest education level: None Occupational History ??? None Tobacco Use ??? Smoking status: Current Every Day Smoker Packs/day: 0.50 Types: Cigarettes ??? Smokeless tobacco: Never Used ??? Tobacco comment: knows he will have to quit Vaping Use ??? Vaping Use: Never used Substance and Sexual Activity ??? Alcohol use: Yes Comment: about 3 times a year ??? Drug use: Never ??? Sexual activity: None Other Topics Concern ??? None Social History Narrative ??? None Social Determinants of Health Financial Resource Strain: Low Risk ??? Difficulty of Paying Living Expenses: Not very hard Food Insecurity: Unknown ??? Worried About Running Out of Food in the Last Year: Never true ??? Ran Out of Food in the Last Year: Not on file Transportation Needs: Unknown ??? Lack of Transportation (Medical): No ??? Lack of Transportation (Non-Medical): Not on file Physical Activity: Not on file Housing Stability: Low Risk ??? Unable to Pay for Housing in the Last Year: No ??? Number of Places Lived in the Last Year: 1 ??? Unstable Housing in the Last Year: No Vitals: Last value Range last 24 hrs Temperature Temp: 36.5 ??C (97.7 ??F) Temp: [36.5 ??C (97.7 ??F)] Heart Rate Heart Rate: 57 Heart Rate: [57] Blood Pressure BP: 146/54 BP: (146-153)/(54-56) Respiratory Rate Resp: 19 Resp: [18-19] SpO2 SpO2: 100 % SpO2: [100 %] Examination: General: Pleasant, thin appearing, in no acute distress HEENT: Normocephalic, atraumatic. Slight scleral icterus, normal conjunctivae. Extraocular movementsintact, no nystagmus observed; pupils equal, round and reactive to light and accomodation. Oropharynx clear without lesions. Poor dentition. Moist mucous membranes Neck: Normal range of motion. Chest: Symmetric chest wall expansion upon inspiration; no kyphoscoliosis Cor: Normal rate, regular rhythm; normal S1/S2, no S3; no murmurs or rubs appreciated Lungs: Breathing non-labored. Clear to auscultation Abdomen: Non-distended, normal bowel sounds; soft, non-tender; no masses or hepatosplenomegaly; no rebound, guarding or peritoneal signs Extremities: Warm, well perfused. No cyanosis, clubbing, or edema. Neurologic: Alert, oriented, cooperative; no focal deficits grossly. Skin: Warm, dry. Normal turgor. No rashes, lesions, petechia or purpura Access: Patient Lines/Drains/Airways Status Active Tubes/Lines/Drains Name Placement date Placement time Site Days Implanted Port - Single Lumen (non-apheresis) 10/17/21 1138 infraclavicular fossa, right power injectable port 10/17/21 1138 -- 13 Peripheral IV Line - Single Lumen 10/30/21 1407 median vein (underside of arm), right 22 gauge 10/30/21 1407 -- less than 1 Laboratory: CBC: Recent Labs 10/21/21 1215 10/14/21 1022 05/30/21 1159 WBC 10.0* 10.3* 7.4 HGB 8.9* 8.1* 13.0* PLATELET 249 276 146 Chemistry: Recent Labs 10/21/21 1215 10/14/21 1022 05/30/21 1159 NA 138 133* 138 K 4.1 4.4 4.7 CL 103 98 104 CO2 23 26 BUN 13 18 20 CREATININE 0.69* 0.74* 1.01 GLUCOSE 164 268* 143 Recent Labs 10/21/21 1215 10/14/21 1022 05/30/21 1159 CALCIUM 8.4* 8.7 9.3 LFT's: Recent Labs 10/21/21 1215 10/14/21 1022 05/30/21 1159 BILITOT 3.5* 5.2* 0.7 BILIDIR -- 3.5* -- ALBUMIN 3.0* 2.9* 4.0 ALKPHOS 672* 1,072* 74 ALT 70* 123* 14 AST 72* 161* 17 Coags: No results for input(s): PT, INR, PTT, FIBRINOGEN, DDIMER in the last 168 hours. Invalid input(s): THROMBIN TIME Cardiac enzymes: No results for input(s): TROPONINT, CK in the last 7068 hours. Endocrine: No results for input(s): TSH, CORTISOL in the last 7068 hours. Invalid input(s): [id number] Heme: No results for input(s): LDH, HAPTOGLOBIN, URICACID in the last 168 hours. Microbiology: @MIRCO@ Imaging and Diagnostics: @RADIMP@ Assessment and Plan: #UGIB secondary to pancreatic adenocarcinoma EGD significant for a friable mass extending into the duodenum, unable to pass a scope beyond the site. Mass was oozing blood, Hemospray applied. Hemodynamically stable, monitor for drop in Hgb with repeat labs. -Repeat CBC -Monitor Hgb, transfuse if drop below 7.0 #Pancreatic adenocarcinoma #Suspicious pulmonary nodule #Surgical workup Suspicious pulmonary nodule needs tissue diagnosis to determine if adenocarcinoma is metastatic. Further surgical workup for Whipple procedure completed as an impatient to move up timeline for surgery. -Thoracic surgery wedge resection -ECG -Labs for surgery workup #Insulin Controlled Type II diabetes -POCG checks -Sliding scale insulin #FEN/PPx/Disposition Fluids: LR Electrolytes: Nutrition: NPO DVT PPx: Enoxaparin GI PPx: Protonix Glycemic control: Sliding scape insulin Disposition: pending clinical course Code Status: Full code Renea Juárez [place] MS3 10/30/21 Rojas, Larry Santiago MD - 10/30/2021 1:37 PM EDT Procedure: EGD Indication: Melena, anemia History of Present Illness: John Duarte is a 66 y.o. M PMH pancreatic adenocarcinoma, HTN, HLD, DM who presents for EGD for evaluation of dark stools and acute on chronic anemia. Patient Active Problem List Diagnosis Code ??? CIS - Dyslipidemia ??? CIS - Non ST elevation myocardial infarction ??? CIS - Tobacco abuse ??? Jaundice R17 ??? Malignant neoplasm of head of pancreas C25.0 ??? Diabetes mellitus E11.9 ??? Hypertension I10 Medications: Reviewed in EDH No Known Allergies Social History/Family History: Reviewed in EDH. No changes Exam: No data found. Axox3, nad Anicteric, MMM CTAB RRR, no m/r/g abd soft nt nd +bs Assessment and Plan: Proceed with EGD: ASA Grade: ASA 3 - Patient with moderate systemic disease with functional limitations Mallampati score:I (soft palate, uvula, fauces, tonsillar pillars visible) Sedation plan: MAC Risks and benefits of the procedure were discussed with the patient. Consent has been signed. Larry Rojas MD documented in this encounter Miscellaneous Notes Care Management Discharge - Radha Taylor RN - 11/03/2021 12:30 PM EDT CARE MANAGEMENT FINAL DISCHARGE NOTE Chart reviewed, care reviewed with primary team and at interdisciplinary rounds. John is a 66 y.o.male with past medical history significant for pancreatic adenocarcinoma, DM, NSTEMI (about 10 yearsago, s/p stent, on ASA), HTN and HLD who is currently admitted for anemia due to bleeding from his pancreas tumor. Patient is medically ready for discharge to home, 11/03/21. Needs for Transition of Care: Plan for discharge is: Home w/o Services Outpatient Agency/Support Group Needs: None Agency Referrals & Follow-up Care: None indicated Transportation: family or friend will provide Friend to transport John home today when medically cleared for discharge. Functional status prior to admission: Independent Home Environment: Others in the home: alone. Current Living Arrangements: home/apartment/condo. Accessibility Concerns:No concerns. Current Functional Ability: Independent DME used at home: other (see comments), glucometer (Insulin) DME Needed at Discharge: None indicated Patient is insured through: Primary Insurance: [employer] MANAGED MEDICARE Payor: [employer] MANAGED MEDICARE / Plan: [employer] RPPO MANAGED MEDICARE COMPLETE / Product Type: *No Product type* / Secondary Insurance: N/A Prescription Coverage: No This plan was formulated with input from patient, John Duarte, and team. All are in agreement withplan. Radha Taylor RN [facility] Class [facility]/Medicine Office of Care Management Pager: [phone] Consult Note - Kartik Olivas MD - 11/03/2021 11:47 AM EDT [facility] Department of Thoracic Surgery Inpatient Consultation Note [place] [phone] FAX: Patient Name: John Duarte Patient : 1955 Patient Patient Location: [address] [place] [address] This consultation request was made by: RAUL RODRIGEZ LEAH R ELDOR, JENNIFER M Consulting thoracic surgery attending: Dr. Martino HPI: John Duarte is a 66 y.o. male with PMHx significant for pancreatic adenocarcinoma, DM, NSTEMI (about 10 years ago, s/p stent, on ASA), HTN and HLD who is currently admitted for anemia due to bleeding from his pancreas tumor. Patient was seen by [facility] Surgical Oncology and Dr. Stevens performed laparoscopy and Mediport placement on 10/17/2021. Patient reports he has been recovering well from this. Patient was then seen by Dr. Streeter who obtained CT Chest on 10/21/2021 which demonstrated bilateral sub-6 mm solid nodules concerning for possible metastatic disease. Patient was then referred to [facility] Thoracic Surgery for further evaluation and was seen on 10/27/21 after which PFTs and TTE were obtained. PFTs revealed DLCO in the low 20s, which is concerning for ability to tolerate single lung ventilation or VATS biopsy. A peripheral 5mm RLL nodule is a possible target for CT guided percutaneous biopsy. ?? He has now been admitted to [facility] following EGD which was scheduled urgently for persistent anemia requiring blood transfusions every couple of days which progressed to melena this morning. EGD revealedbleeding from his nearly obstructive pancreatic mass invading the duodenum to which Hemospray was rené lied. 24 hours/Subjective: - BM yesterday, no melena. hgb stable. - patient underwent technically successful RLL nodule biopsy by IR today. Follow up xray negative for pneumothorax Past Medical History: Patient Active Problem List Diagnosis Date Noted ??? Severe protein-calorie malnutrition 10/31/2021 ??? Pancreatic adenocarcinoma 10/31/2021 ??? Solid nodule of lung less than 6 mm in diameter 10/31/2021 ??? Acute on chronic blood loss anemia 10/31/2021 ??? Duodenal ulcer 10/30/2021 ??? Diabetes mellitus 10/14/2021 ??? Hypertension 10/14/2021 ??? Malignant neoplasm of head of pancreas 10/13/2021 ??? Jaundice 09/30/2021 ??? CIS - Dyslipidemia 04/25/2008 ??? CIS - Non ST elevation myocardial infarction 04/25/2008 ??? CIS - Tobacco abuse 04/25/2008 No past medical history on file. Past Surgical History: Past Surgical History: Procedure Laterality Date ??? CT GUIDED BIOPSY LUNG 11/03/2021 CT Guided Biopsy Lung 11/03/2021 Jaron Stallings, DO [facility] RAD CT SCAN ? ? PRO DIAGNOSTIC BONE MARROW BIOPSIES & ASPIRATIONS Left 10/24/2018 ([facility]) BONE MARROW BIOPSY AND ASPIRATION; DIAGNOSTIC performed by Sergey Cook MD at [facility] OSC ??? PRO ENDOSCOPIC US EXAM, ESOPH N/A 06/19/2021 UPPER EUS- ENDOSCOPIC ULTRASOUND performed by Gabriel Hilario MD at [facility] ENDOSCOPY ??? PRO ENDOSCOPIC US EXAM, ESOPH N/A 10/07/2021 UPPER EUS- ENDOSCOPIC ULTRASOUND performed by Humberto Dumont MD at [facility] ENDOSCOPY ??? PRO ERCP BALLOON DILATATION BILIARY/PANCREATIC DUCT OR AMPULLA EA DUCT 10/07/2021 ERCP, W BALLOON DILATION OF BILIARY/PANCREATIC DUCT performed by Humberto Dumont MD at [facility] ENDOSCOPY ??? PRO ERCP STENT PLACEMENT BILIARY OR PANCREATIC DUCT 10/07/2021 ERCP, W PLCMNT ENDOSCOPIC STENT BILIARY OR PANCREATIC DUCT performed by Humberto Dumont MD at [facility] ENDOSCOPY ??? PRO ERCP, SPHINCTEROTOMY N/A 10/07/2021 ERCP W/SPHINCTEROTOMY/PAPILLOTOMY performed by Humberto Dumont MD at [facility] ENDOSCOPY ??? PRO FINE NEEDLE ASPIRATION BX W/US GDN 1ST LESION 10/07/2021 FINE NEEDLE ASPIRATION BIOPSY, INC US GUIDANCE; FIRST LESION performed by Humberto Dumont MD at [facility] ENDOSCOPY ??? PRO INSERT TUNNELED CV CATH W SUBQ PORT, AGE 5 YRS OR OLDER N/A 10/17/2021 NAKITA\SILVIA.CATHETER,TUNNELED, WITH SQ PORT OR PUMP OVER 5YR (WRVU 6.04) performed by Jordan Stevens MD at [facility] OSC ??? PRO LAP, DX SURGICAL ABD W/BIOPSY N/A 10/17/2021 LAPAROSCOPY,SURGICAL,WITH BIOPSY, SINGLE OR MULTIPLE (WRVU 5.44) performed by Scooby Stevens MD at [facility] ??? PRO UPGI ENDOSCOPY W/US FN BX 10/07/2021 EGD, W US GUIDED FINE NEEDLE ASPIRATION/BIOPSY performed by Humberto Dumont MD at [facility] ENDOSCOPY ??? PRO UPPER GI ENDOSCOPY, CTRL BLEED N/A 10/30/2021 EGD, W CONTROL OF BLEEDING, ANY METHOD performed by Raul Rodrigez MD at [facility] ENDOSCOPY Medications: Outpatient Medications Marked as Taking for the 10/30/21 encounter (Hospital Encounter) Medication Sig Dispense Refill ??? pantoprazole EC (Protonix) 40 mg Tablet, Delayed Release (E.C.) Take 1 tablet by mouth daily. 90tablet 3 ??? metoprolol succinate XL (Toprol-XL) 25 mg Tablet Sustained Release 24 hr Take by mouth daily. ??? tamsulosin (Flomax) 0.4 mg Capsule Take 0.4 mg by mouth daily. ??? losartan (Cozaar) 25 mg Tablet Take 25 mg by mouth daily. ??? aspirin EC 81 mg Tablet, Delayed Release (E.C.) Take 81 mg by mouth daily. ??? atorvastatin (LIPITOR) 80 mg Tablet 40 mg. 0 ??? metFORMIN (GLUCOPHAGE) 850 mg Tablet 2 times daily. 0 Allergies: No Known Allergies Family History: Family History Problem Relation Age of Onset ??? Cancer Father gastrointestinal ??? Colorectal Cancer Maternal Aunt Social History: Social History Socioeconomic History ??? Marital status: Spouse name: Not on file ??? Number of children: Not on file ??? Years of education: Not on file ??? Highest education level: Not on file Occupational History ??? Not on file Tobacco Use ??? Smoking status: Current Every Day Smoker Packs/day: 0.50 Types: Cigarettes ??? Smokeless tobacco: Never Used ??? Tobacco comment: knows he will have to quit Vaping Use ??? Vaping Use: Never used Substance and Sexual Activity ??? Alcohol use: Yes Comment: about 3 times a year ??? Drug use: Never ??? Sexual activity: Not on file Other Topics Concern ??? Not on file Social History Narrative ??? Not on file Social Determinants of Health Financial Resource Strain: Low Risk ??? Difficulty of Paying Living Expenses: Not very hard Food Insecurity: Unknown ??? Worried About Running Out of Food in the Last Year: Never true ??? Ran Out of Food in the Last Year: Not on file Transportation Needs: Unknown ??? Lack of Transportation (Medical): No ??? Lack of Transportation (Non-Medical): Not on file Physical Activity: Not on file Housing Stability: Low Risk ??? Unable to Pay for Housing in the Last Year: No ??? Number of Places Lived in the Last Year: 1 ??? Unstable Housing in the Last Year: No Review of Systems: Denies abdominal pain, fevers, chills, cough Vitals: Temp: [36.5 ??C (97.7 ??F)-37.1 ??C (98.8 ??F)] Heart Rate: [63-74] Resp: [9-18] BP: (97-147)/(32-60) SpO2: [92 %-100 %] Heart Rate from SpO2: [56 bpm-76 bpm] Wt & BMI By Encounter Date Flowsheet Row Admission (Current) from 10/30/2021 in 1 [facility] Office Visit from 10/27/2021 in Thoracic Surgery at [facility] Weight 49.9 kg (110 lb) 1 10/30/2021 1350 50.5 kg (111 lb 6.4 oz) 1 10/27/2021 1148 BMI 18.3 1 10/30/2021 1350 19.12 1 10/27/2021 1148 Physical Exam: Gen: NAD, pleasant, lying in bed Card: RRR on monitor Pulm: breathing comfortably on RA Abd: non-peritoneal Ext: warm, dry, no edema Neuro: A&Ox3, CN II-XII grossly intact, nonfocal, conversant I/O: I/O last 3 completed shifts: In: - Out: 1950 [Urine:1950] Labs: Recent Results (from the past 72 hour(s)) Basic Metabolic Panel (non-fasting) Result Value Ref Range Glucose Lvl 87 65 - 199 mg/dL BUN 9 (L) 10 - 20 mg/dL Creatinine 0.67 (L) 0.80 - 1.50 mg/dL Sodium 135 135 - 145 mmol/L Potassium 3.6 3.5 - 5.0 mmol/L Chloride 103 98 - 107 mmol/L CO2 23 22 - 31 mmol/L Anion Gap 9 5 - 15 mmol/L Calcium 8.1 (L) 8.5 - 10.5 mg/dL Estimated GFR 102 >=60 mL/min/1.73 m?? POCT Glucose Result Value Ref Range POC Glucose 165 65 - 199 mg/dL POCT Glucose Result Value Ref Range POC Glucose 183 65 - 199 mg/dL POCT Glucose Result Value Ref Range POC Glucose 185 65 - 199 mg/dL Basic Metabolic Panel (non-fasting) Result Value Ref Range Glucose Lvl 170 65 - 199 mg/dL BUN 9 (L) 10 - 20 mg/dL Creatinine 0.69 (L) 0.80 - 1.50 mg/dL Sodium 136 135 - 145 mmol/L Potassium 4.2 3.5 - 5.0 mmol/L Chloride 106 98 - 107 mmol/L CO2 22 22 - 31 mmol/L Anion Gap 8 5 - 15 mmol/L Calcium 7.6 (L) 8.5 - 10.5 mg/dL Estimated GFR 101 >=60 mL/min/1.73 m?? Magnesium Result Value Ref Range Magnesium 0.77 0.69 - 1.07 mmol/L Phosphorus Result Value Ref Range Phosphorus 2.6 2.5 - 4.5 mg/dL Hepatic Function Panel Result Value Ref Range Total Protein 5.1 (L) 6.1 - 8.0 g/dL Albumin 2.5 (L) 3.2 - 5.2 g/dL AST 19 0 - 39 unit/L ALT 18 0 - 55 unit/L Alk Phos 345 (H) 40 - 130 unit/L Total Bilirubin 1.8 (H) 0.2 - 1.3 mg/dL Bili, Direct 1.2 (H) 0.0 - 0.3 mg/dL Prothrombin Time Result Value Ref Range PT 13.4 (H) 9.4 - 12.5 sec INR 1.2 APTT Result Value Ref Range PTT 28 25 - 37 sec Hemogram Result Value Ref Range WBC 7.5 4.0 - 9.5 x10(3)/mcL RBC 2.36 (L) 4.58 - 5.54 x10(6)/mcL Hemoglobin 8.6 (L) 13.7 - 16.5 g/dL Hematocrit 25.9 (L) 40.5 - 48.5 % MCV 109.7 (H) 82.9 - 93.1 fL MCH 36.4 (H) 27.5 - 32.1 pg MCHC 33.2 32.0 - 35.7 g/dL Platelets 195 145 - 357 x10(3)/mcL RDWSD 72.5 (H) 36.0 - 45.0 fL RDWCV 18.0 (H) 11.4 - 13.8 % MPV 10.2 7.6 - 12.9 fL nRBC % Auto 0.0 % nRBC Abs Auto 0.000 0.000 - 0.000 x10(3)/mcL Differential, Automated Result Value Ref Range Neutrophils % 58.2 % Neutr Abs (ANC) 4.36 1.70 - 6.10 x10(3)/mcL Lymphocytes % 33.8 % Lymphocytes Abs 2.5 0.9 - 3.2 x10(3)/mcL Monocytes % 6.4 % Monocyte Abs 0.5 0.3 - 0.9 x10(3)/mcL Eosinophils % 0.8 % Eosinophils Abs 0.1 0.0 - 0.4 x10(3)/mcL Basophils % 0.3 % Basophils Abs 0.0 0.0 - 0.1 x10(3)/mcL Immature Gran % 0.50 % Neda Gran Abs 0.04 0.00 - 0.04 x10(3)/mcL POCT Glucose Result Value Ref Range POC Glucose 164 65 - 199 mg/dL POCT Glucose Result Value Ref Range POC Glucose 186 65 - 199 mg/dL Hemoglobin and Hematocrit, blood Result Value Ref Range Hemoglobin 8.9 (L) 13.7 - 16.5 g/dL Hematocrit 26.1 (L) 40.5 - 48.5 % POCT Glucose Result Value Ref Range POC Glucose 150 65 - 199 mg/dL POCT Glucose Result Value Ref Range POC Glucose 226 (H) 65 - 199 mg/dL Basic Metabolic Panel (non-fasting) Result Value Ref Range Glucose Lvl 225 (H) 65 - 199 mg/dL BUN 9 (L) 10 - 20 mg/dL Creatinine 0.79 (L) 0.80 - 1.50 mg/dL Sodium 139 135 - 145 mmol/L Potassium 4.0 3.5 - 5.0 mmol/L Chloride 107 98 - 107 mmol/L CO2 23 22 - 31 mmol/L Anion Gap 9 5 - 15 mmol/L Calcium 7.8 (L) 8.5 - 10.5 mg/dL Estimated GFR 97 >=60 mL/min/1.73 m?? Magnesium Result Value Ref Range Magnesium 0.72 0.69 - 1.07 mmol/L Phosphorus Result Value Ref Range Phosphorus 2.8 2.5 - 4.5 mg/dL Hepatic Function Panel Result Value Ref Range Total Protein 5.4 (L) 6.1 - 8.0 g/dL Albumin 2.6 (L) 3.2 - 5.2 g/dL AST 31 0 - 39 unit/L ALT 20 0 - 55 unit/L Alk Phos 437 (H) 40 - 130 unit/L Total Bilirubin 1.9 (H) 0.2 - 1.3 mg/dL Bili, Direct 1.3 (H) 0.0 - 0.3 mg/dL Prothrombin Time Result Value Ref Range PT 13.0 (H) 9.4 - 12.5 sec INR 1.1 APTT Result Value Ref Range PTT 28 25 - 37 sec Hemogram Result Value Ref Range WBC 7.4 4.0 - 9.5 x10(3)/mcL RBC 2.50 (L) 4.58 - 5.54 x10(6)/mcL Hemoglobin 9.3 (L) 13.7 - 16.5 g/dL Hematocrit 27.5 (L) 40.5 - 48.5 % MCV 110.0 (H) 82.9 - 93.1 fL MCH 37.2 (H) 27.5 - 32.1 pg MCHC 33.8 32.0 - 35.7 g/dL Platelets 170 145 - 357 x10(3)/mcL RDWSD 70.0 (H) 36.0 - 45.0 fL RDWCV 17.2 (H) 11.4 - 13.8 % MPV 10.1 7.6 - 12.9 fL nRBC % Auto 0.0 % nRBC Abs Auto 0.000 0.000 - 0.000 x10(3)/mcL Differential, Automated Result Value Ref Range Neutrophils % 62.8 % Neutr Abs (ANC) 4.65 1.70 - 6.10 x10(3)/mcL Lymphocytes % 29.4 % Lymphocytes Abs 2.2 0.9 - 3.2 x10(3)/mcL Monocytes % 6.3 % Monocyte Abs 0.5 0.3 - 0.9 x10(3)/mcL Eosinophils % 0.8 % Eosinophils Abs 0.1 0.0 - 0.4 x10(3)/mcL Basophils % 0.3 % Basophils Abs 0.0 0.0 - 0.1 x10(3)/mcL Immature Gran % 0.40 % Neda Gran Abs 0.03 0.00 - 0.04 x10(3)/mcL POCT Glucose Result Value Ref Range POC Glucose 218 (H) 65 - 199 mg/dL POCT Glucose Result Value Ref Range POC Glucose 92 65 - 199 mg/dL POCT Glucose Result Value Ref Range POC Glucose 114 65 - 199 mg/dL POCT Glucose Result Value Ref Range POC Glucose 103 65 - 199 mg/dL Basic Metabolic Panel (non-fasting) Result Value Ref Range Glucose Lvl 134 65 - 199 mg/dL BUN 10 10 - 20 mg/dL Creatinine 0.79 (L) 0.80 - 1.50 mg/dL Sodium 136 135 - 145 mmol/L Potassium 3.8 3.5 - 5.0 mmol/L Chloride 103 98 - 107 mmol/L CO2 23 22 - 31 mmol/L Anion Gap 10 5 - 15 mmol/L Calcium 7.8 (L) 8.5 - 10.5 mg/dL Estimated GFR 97 >=60 mL/min/1.73 m?? Magnesium Result Value Ref Range Magnesium 0.68 (L) 0.69 - 1.07 mmol/L Phosphorus Result Value Ref Range Phosphorus 3.2 2.5 - 4.5 mg/dL Hepatic Function Panel Result Value Ref Range Total Protein 5.1 (L) 6.1 - 8.0 g/dL Albumin 2.4 (L) 3.2 - 5.2 g/dL AST 87 (H) 0 - 39 unit/L ALT 42 0 - 55 unit/L Alk Phos 691 (H) 40 - 130 unit/L Total Bilirubin 2.2 (H) 0.2 - 1.3 mg/dL Bili, Direct 1.6 (H) 0.0 - 0.3 mg/dL Prothrombin Time Result Value Ref Range PT 13.8 (H) 9.4 - 12.5 sec INR 1.2 APTT Result Value Ref Range PTT 29 25 - 37 sec Hemogram Result Value Ref Range WBC 8.4 4.0 - 9.5 x10(3)/mcL RBC 2.30 (L) 4.58 - 5.54 x10(6)/mcL Hemoglobin 8.5 (L) 13.7 - 16.5 g/dL Hematocrit 25.7 (L) 40.5 - 48.5 % MCV 111.7 (H) 82.9 - 93.1 fL MCH 37.0 (H) 27.5 - 32.1 pg MCHC 33.1 32.0 - 35.7 g/dL Platelets 161 145 - 357 x10(3)/mcL RDWSD 68.1 (H) 36.0 - 45.0 fL RDWCV 16.6 (H) 11.4 - 13.8 % MPV 10.5 7.6 - 12.9 fL nRBC % Auto 0.0 % nRBC Abs Auto 0.000 0.000 - 0.000 x10(3)/mcL Differential, Automated Result Value Ref Range Neutrophils % 69.9 % Neutr Abs (ANC) 5.87 1.70 - 6.10 x10(3)/mcL Lymphocytes % 22.3 % Lymphocytes Abs 1.9 0.9 - 3.2 x10(3)/mcL Monocytes % 6.5 % Monocyte Abs 0.6 0.3 - 0.9 x10(3)/mcL Eosinophils % 0.6 % Eosinophils Abs 0.0 0.0 - 0.4 x10(3)/mcL Basophils % 0.2 % Basophils Abs 0.0 0.0 - 0.1 x10(3)/mcL Immature Gran % 0.50 % Neda Gran Abs 0.04 0.00 - 0.04 x10(3)/mcL POCT Glucose Result Value Ref Range POC Glucose 183 65 - 199 mg/dL POCT Glucose Result Value Ref Range POC Glucose 167 65 - 199 mg/dL Diagnostics: No new imaging. Assessment: John Duarte is a 66 y.o. male with PMHx as above for whom Thoracic Surgery is consulted for surgical biopsy of patient's pulmonary nodules - concerning for metastatic disease - in the setting of otherwise resectable pancreatic cancer. His nodules are very small and deep enough in the lung parenchyma to make VATS wedge resection and percutaneous biopsy challenging. Furthermore, his low DLCO from his PFTs (27%), indicates that he may not tolerate single-lung ventilation for VATS. There is a 4.7 mmnodule in the RLL which was successfully biopsied by IR on 11/03 and we will follow up the results. If the biopsy is non-diagnostic, we can resume discussions regarding surgical wedge resection. From the perspective of the Thoracic Surgery team, the patient does not need to remain in the hospital to await biopsy results, though we understand he has other medical issues which might preclude discharge. We will see him next on if he remains an inpatient, or sooner if the primary team needs additional recommendations before then. All plans formulated in discussion with and directed by attending thoracic surgeon Dr. Martino. Thoracic surgery will continue to follow. Kartik Olivas MD 11/03/2021 Thoracic Surgery Service Pager [phone] Associated attestation - Jaime Martino MD - 11/03/2021 2:09 PM EDT I have seen the patient in person and reviewed the resident's above history and I agree with the details as written. The assessment and plan were formulated in discussion with me and I agree with them as documented. Plan: Will follow-up biopsy results. No further episodes of melena. Will need to explore wedge resection if biopsy is not conclusive. Jaime Martino MD Thoracic Surgery Consult Note - Kartik Olivas MD - 11/02/2021 10:34 AM EDT [facility] Department of Thoracic Surgery Inpatient Consultation Note [place], [place] [address] FAX: Patient Name: John Duarte Patient : 1955 Patient Patient Location: This consultation request was made by: RAUL RODRIGEZ LEAH R ELDOR, JENNIFER M Consulting thoracic surgery attending: Dr. Martino HPI: John Duarte is a 66 y.o. male with PMHx significant for pancreatic adenocarcinoma, DM, NSTEMI (about 10 years ago, s/p stent, on ASA), HTN and HLD who is currently admitted for anemia due to bleeding from his pancreas tumor. Patient was seen by [facility] Surgical Oncology and Dr. Stevens performed laparoscopy and Mediport placement on 10/17/2021. Patient reports he has been recovering well from this. Patient was then seen by Dr. Streeter who obtained CT Chest on 10/21/2021 which demonstrated bilateral sub-6 mm solid nodules concerning for possible metastatic disease. Patient was then referred to [facility] Thoracic Surgery for further evaluation and was seen on 10/27/21 after which PFTs and TTE were obtained. PFTs revealed DLCO in the low 20s, which is concerning for ability to tolerate single lung ventilation or VATS biopsy. A peripheral 5mm RLL nodule is a possible target for CT guided percutaneous biopsy. ?? He has now been admitted to [facility] following EGD which was scheduled urgently for persistent anemia requiring blood transfusions every couple of days which progressed to melena this morning. EGD revealedbleeding from his nearly obstructive pancreatic mass invading the duodenum to which Hemospray was rené lied. 24 hours/Subjective: - melena x1 yesterday, hgb stable - lost IV access without access overnight - no BM overnight or this AM Past Medical History: Patient Active Problem List Diagnosis Date Noted ??? Severe protein-calorie malnutrition 10/31/2021 ??? Pancreatic adenocarcinoma 10/31/2021 ??? Solid nodule of lung less than 6 mm in diameter 10/31/2021 ??? Acute on chronic blood loss anemia 10/31/2021 ??? Duodenal ulcer 10/30/2021 ??? Diabetes mellitus 10/14/2021 ??? Hypertension 10/14/2021 ??? Malignant neoplasm of head of pancreas 10/13/2021 ??? Jaundice 09/30/2021 ??? CIS - Dyslipidemia 04/25/2008 ??? CIS - Non ST elevation myocardial infarction 04/25/2008 ??? CIS - Tobacco abuse 04/25/2008 No past medical history on file. Past Surgical History: Past Surgical History: Procedure Laterality Date ? ? PRO DIAGNOSTIC BONE MARROW BIOPSIES & ASPIRATIONS Left 10/24/2018 ([facility]) BONE MARROW BIOPSY AND ASPIRATION; DIAGNOSTIC performed by Sergey Cook MD at [facility] ??? PRO ENDOSCOPIC US EXAM, ESOPH N/A 06/19/2021 UPPER EUS- ENDOSCOPIC ULTRASOUND performed by Gabriel Hilario MD at [facility] ??? PRO ENDOSCOPIC US EXAM, ESOPH N/A 10/07/2021 UPPER EUS- ENDOSCOPIC ULTRASOUND performed by Humberto Dumont MD at [facility] ??? PRO ERCP BALLOON DILATATION BILIARY/PANCREATIC DUCT OR AMPULLA EA DUCT 10/07/2021 ERCP, W BALLOON DILATION OF BILIARY/PANCREATIC DUCT performed by Humberto Dumont MD at [facility] ??? PRO ERCP STENT PLACEMENT BILIARY OR PANCREATIC DUCT 10/07/2021 ERCP, W PLCMNT ENDOSCOPIC STENT BILIARY OR PANCREATIC DUCT performed by Humberto Dumont MD at [facility] ??? PRO ERCP, SPHINCTEROTOMY N/A 10/07/2021 ERCP W/SPHINCTEROTOMY/PAPILLOTOMY performed by Humberto Dumont MD at [facility] ??? PRO FINE NEEDLE ASPIRATION BX W/US GDN 1ST LESION 10/07/2021 FINE NEEDLE ASPIRATION BIOPSY, INC US GUIDANCE; FIRST LESION performed by Humberto Dumont MD at [facility] ??? PRO INSERT TUNNELED CV CATH W SUBQ PORT, AGE 5 YRS OR OLDER N/A 10/17/2021 NAKITA\SILVIA.CATHETER,TUNNELED, WITH SQ PORT OR PUMP OVER 5YR (WRVU 6.04) performed by Jordan Stevens MD at [facility] ??? PRO LAP, DX SURGICAL ABD W/BIOPSY N/A 10/17/2021 LAPAROSCOPY,SURGICAL,WITH BIOPSY, SINGLE OR MULTIPLE (WRVU 5.44) performed by Scooby Stevens MD at [facility] ??? PRO UPGI ENDOSCOPY W/US FN BX 10/07/2021 EGD, W US GUIDED FINE NEEDLE ASPIRATION/BIOPSY performed by Humberto Dumont MD at [facility] ??? PRO UPPER GI ENDOSCOPY, CTRL BLEED N/A 10/30/2021 EGD, W CONTROL OF BLEEDING, ANY METHOD performed by Raul Rodrigez MD at [facility] Medications: Outpatient Medications Marked as Taking for the 10/30/21 encounter (Hospital Encounter) Medication Sig Dispense Refill ??? pantoprazole EC (Protonix) 40 mg Tablet, Delayed Release (E.C.) Take 1 tablet by mouth daily. 90tablet 3 ??? metoprolol succinate XL (Toprol-XL) 25 mg Tablet Sustained Release 24 hr Take by mouth daily. ??? tamsulosin (Flomax) 0.4 mg Capsule Take 0.4 mg by mouth daily. ??? losartan (Cozaar) 25 mg Tablet Take 25 mg by mouth daily. ??? aspirin EC 81 mg Tablet, Delayed Release (E.C.) Take 81 mg by mouth daily. ??? atorvastatin (LIPITOR) 80 mg Tablet 40 mg. 0 ??? metFORMIN (GLUCOPHAGE) 850 mg Tablet 2 times daily. 0 Allergies: No Known Allergies Family History: Family History Problem Relation Age of Onset ??? Cancer Father gastrointestinal ??? Colorectal Cancer Maternal Aunt Social History: Social History Socioeconomic History ??? Marital status: Spouse name: Not on file ??? Number of children: Not on file ??? Years of education: Not on file ??? Highest education level: Not on file Occupational History ??? Not on file Tobacco Use ??? Smoking status: Current Every Day Smoker Packs/day: 0.50 Types: Cigarettes ??? Smokeless tobacco: Never Used ??? Tobacco comment: knows he will have to quit Vaping Use ??? Vaping Use: Never used Substance and Sexual Activity ??? Alcohol use: Yes Comment: about 3 times a year ??? Drug use: Never ??? Sexual activity: Not on file Other Topics Concern ??? Not on file Social History Narrative ??? Not on file Social Determinants of Health Financial Resource Strain: Low Risk ??? Difficulty of Paying Living Expenses: Not very hard Food Insecurity: Unknown ??? Worried About Running Out of Food in the Last Year: Never true ??? Ran Out of Food in the Last Year: Not on file Transportation Needs: Unknown ??? Lack of Transportation (Medical): No ??? Lack of Transportation (Non-Medical): Not on file Physical Activity: Not on file Housing Stability: Low Risk ??? Unable to Pay for Housing in the Last Year: No ??? Number of Places Lived in the Last Year: 1 ??? Unstable Housing in the Last Year: No Review of Systems: Denies abdominal pain, fevers, chills, cough Vitals: Temp: [36.5 ??C (97.7 ??F)-37.5 ??C (99.5 ??F)] Heart Rate: [65-73] Resp: [16-18] BP: (121-145)/(49-54) SpO2: [92 %-96 %] Heart Rate from SpO2: [63 bpm-71 bpm] Wt & BMI By Encounter Date Flowsheet Row Admission (Current) from 10/30/2021 in 1 [facility] Office Visit from 10/27/2021 in Thoracic Surgery at [facility] Weight 49.9 kg (110 lb) 1 10/30/2021 1350 50.5 kg (111 lb 6.4 oz) 1 10/27/2021 1148 BMI 18.3 1 10/30/2021 1350 19.12 1 10/27/2021 1148 Physical Exam: Gen: NAD, pleasant, lying in bed Card: RRR on monitor Pulm: breathing comfortably on RA Abd: soft Ext: warm, dry, no edema Neuro: A&Ox3, CN II-XII grossly intact, nonfocal, conversant I/O: I/O last 3 completed shifts: In: - Out: 1600 [Urine:1600] Labs: Recent Results (from the past 72 hour(s)) Echocardiogram Transthoracic Result Value Ref Range EF 54 POCT Glucose Result Value Ref Range POC Glucose 191 65 - 199 mg/dL UPPER GI ENDOSCOPY Result Value Ref Range UPPER GI ENDOSCOPY [facility] Endoscopy Procedure Date: 10/30/2021 2:40 PM Patient Name: John Duarte Date of : 1955 Age: 66 Order #: [id number] Instrument Name: [id number] Procedure: Upper GI endoscopy Indications: Melena Providers: Raul Rodrigez MD, Julita Riley RN, Starr Watts, Bedspring Assembler Referring MD: Medicines: Monitored Anesthesia Care Complications: No immediate complications. Procedure: Pre-Anesthesia Assessment: - Prior to the procedure, a History and Physical was performed, and patient medications and allergies were reviewed. The patient is competent. The risks and benefits of the procedure and the sedation options and risks were discussed with the patient. All questions were answered and informed consent was obtained. Patient identification and proposed procedure were verified by the physician in the pre-procedure area. Mental Status Examination: alert and oriented. Airway Examination: normal oropharyngeal airway and neck mobility. CV Examination: normal. Prophylactic Antibiotics: The patient does not require prophylactic antibiotics. Prior Anticoagulants: The patient has taken no anticoagulant or antiplatelet agents. ASA Grade Assessment: III - A patient with severe systemic disease. After reviewing the risks and benefits, the patient was deemed in satisfactory condition to undergo the procedure. The anesthesia plan was to use monitored anesthesia care (MAC). Immediately prior to administration of medications, the patient was re-assessed for adequac y to receive sedatives. The heart rate, respiratory rate, oxygen saturations, blood pressure, adequacy of pulmonary ventilation, and response to care were monitored throughout the procedure. The physical status of the patient was re-assessed after the procedure. The procedure, indications, benefits, risks and alternatives were explained to the patient. Specifically discussed were potential complications including, but not limited to, bleeding, perforation, infection, missing a cancer, and adverse medication reactions. The Endoscope was introduced through the mouth, and advanced to the second part of duodenum The upper GI endoscopy was accomplished without difficulty. The patient tolerated the procedure well. Findings: The esophagus was normal. The stomach was normal. The examined duodenal bulb was normal. However, just at beginning of the C sweep there was an extrinsic narrowing of the duodenum medially and we were unable to pass distally a colonoscope or gastroscope. However, we could visualize erythema and edema beyond the stricture likely consistent with malignant tumor ingrowth. We then sprayed Hemospray to try and control any bleeding from the site. Moderate Sedation: Not applicable - See Anesthesia documentation Impression: - Likely tumor ingrowth in the medial second portion of the duodenum - s/p hemospray application Recommendation: - Admit to medicine - Surgical, thoracic and radiation oncology consultations Procedure Code(s): --- Professional --- 59958, Esophagogastroduodenoscopy, flexible, transoral; diagnostic, including collection of specimen(s) by brushing or washing, when performed (separate procedure) CPT copyright 2020 [employer]. All rights reserved. The codes documented in this report are preliminary and upon electronic intelligence officer review may be revised to meet current compliance requirements. Attending Participation: I was present and participated during the entire procedure, including non-blackwell portions. Raul Rodrigez MD 10/30/2021 3:24:28 PM This report has been signed electronically. Number of Addenda: 0 Note Initiated On: 10/30/2021 2:40 PM POCT Glucose Result Value Ref Range POC Glucose 150 65 - 199 mg/dL EKG 12 Lead Result Value Ref Range Ventricular rate 66 BPM Atrial Rate 66 BPM P-R Interval 172 ms QRS Duration 152 ms Q-T Interval 436 ms QTC Calculated (Bezet) 457 ms Calculated P [place] 65 degrees Calculated R [place] 69 degrees Calculated T [place] 66 degrees INTERPRETATION Normal sinus rhythm Left bundle branch block Abnormal ECG When compared with ECG of 26-APR-2008 07:39, No significant change was found Confirmed by Sienna Tian ([id number]) on 10/31/2021 5:39:51 PM POCT Glucose Result Value Ref Range POC Glucose 281 (H) 65 - 199 mg/dL POCT Glucose Result Value Ref Range POC Glucose 248 (H) 65 - 199 mg/dL POCT Glucose Result Value Ref Range POC Glucose 71 65 - 199 mg/dL POCT Glucose Result Value Ref Range POC Glucose 87 65 - 199 mg/dL POCT Glucose Result Value Ref Range POC Glucose 88 65 - 199 mg/dL Basic Metabolic Panel (non-fasting) Result Value Ref Range Glucose Lvl 92 65 - 199 mg/dL BUN 10 10 - 20 mg/dL Creatinine 0.56 (L) 0.80 - 1.50 mg/dL Sodium 133 (L) 135 - 145 mmol/L Potassium 3.4 (L) 3.5 - 5.0 mmol/L Chloride 104 98 - 107 mmol/L CO2 23 22 - 31 mmol/L Anion Gap 6 5 - 15 mmol/L Calcium 7.9 (L) 8.5 - 10.5 mg/dL Estimated GFR 108 >=60 mL/min/1.73 m?? Magnesium Result Value Ref Range Magnesium 0.71 0.69 - 1.07 mmol/L Phosphorus Result Value Ref Range Phosphorus 3.0 2.5 - 4.5 mg/dL Hepatic Function Panel Result Value Ref Range Total Protein 5.4 (L) 6.1 - 8.0 g/dL Albumin 2.6 (L) 3.2 - 5.2 g/dL AST 24 0 - 39 unit/L ALT 21 0 - 55 unit/L Alk Phos 395 (H) 40 - 130 unit/L Total Bilirubin 2.1 (H) 0.2 - 1.3 mg/dL Bili, Direct 1.4 (H) 0.0 - 0.3 mg/dL Prothrombin Time Result Value Ref Range PT 13.2 (H) 9.4 - 12.5 sec INR 1.2 APTT Result Value Ref Range PTT 27 25 - 37 sec Hemogram Result Value Ref Range WBC 8.5 4.0 - 9.5 x10(3)/mcL RBC 2.25 (L) 4.58 - 5.54 x10(6)/mcL Hemoglobin 8.5 (L) 13.7 - 16.5 g/dL Hematocrit 24.5 (L) 40.5 - 48.5 % MCV 108.9 (H) 82.9 - 93.1 fL MCH 37.8 (H) 27.5 - 32.1 pg MCHC 34.7 32.0 - 35.7 g/dL Platelets 197 145 - 357 x10(3)/mcL RDWSD 72.8 (H) 36.0 - 45.0 fL RDWCV 18.3 (H) 11.4 - 13.8 % MPV 10.2 7.6 - 12.9 fL nRBC % Auto 0.0 % nRBC Abs Auto 0.000 0.000 - 0.000 x10(3)/mcL Differential, Automated Result Value Ref Range Neutrophils % 67.2 % Neutr Abs (ANC) 5.72 1.70 - 6.10 x10(3)/mcL Lymphocytes % 26.4 % Lymphocytes Abs 2.2 0.9 - 3.2 x10(3)/mcL Monocytes % 5.4 % Monocyte Abs 0.5 0.3 - 0.9 x10(3)/mcL Eosinophils % 0.4 % Eosinophils Abs 0.0 0.0 - 0.4 x10(3)/mcL Basophils % 0.2 % Basophils Abs 0.0 0.0 - 0.1 x10(3)/mcL Immature Gran % 0.40 % Neda Gran Abs 0.03 0.00 - 0.04 x10(3)/mcL ABO/Rh Typing Result Value Ref Range ABORh Type A Pos Antibody screen Result Value Ref Range Ab Screen Interp Negative Expires at 2359 on: 11/03/2021 Type and Screen Validity Result Value Ref Range T&S only valid at [facility] Hosp POCT Glucose Result Value Ref Range POC Glucose 129 65 - 199 mg/dL POCT Glucose Result Value Ref Range POC Glucose 126 65 - 199 mg/dL POCT Glucose Result Value Ref Range POC Glucose 140 65 - 199 mg/dL Basic Metabolic Panel (non-fasting) Result Value Ref Range Glucose Lvl 87 65 - 199 mg/dL BUN 9 (L) 10 - 20 mg/dL Creatinine 0.67 (L) 0.80 - 1.50 mg/dL Sodium 135 135 - 145 mmol/L Potassium 3.6 3.5 - 5.0 mmol/L Chloride 103 98 - 107 mmol/L CO2 23 22 - 31 mmol/L Anion Gap 9 5 - 15 mmol/L Calcium 8.1 (L) 8.5 - 10.5 mg/dL Estimated GFR 102 >=60 mL/min/1.73 m?? POCT Glucose Result Value Ref Range POC Glucose 165 65 - 199 mg/dL POCT Glucose Result Value Ref Range POC Glucose 183 65 - 199 mg/dL POCT Glucose Result Value Ref Range POC Glucose 185 65 - 199 mg/dL Basic Metabolic Panel (non-fasting) Result Value Ref Range Glucose Lvl 170 65 - 199 mg/dL BUN 9 (L) 10 - 20 mg/dL Creatinine 0.69 (L) 0.80 - 1.50 mg/dL Sodium 136 135 - 145 mmol/L Potassium 4.2 3.5 - 5.0 mmol/L Chloride 106 98 - 107 mmol/L CO2 22 22 - 31 mmol/L Anion Gap 8 5 - 15 mmol/L Calcium 7.6 (L) 8.5 - 10.5 mg/dL Estimated GFR 101 >=60 mL/min/1.73 m?? Magnesium Result Value Ref Range Magnesium 0.77 0.69 - 1.07 mmol/L Phosphorus Result Value Ref Range Phosphorus 2.6 2.5 - 4.5 mg/dL Hepatic Function Panel Result Value Ref Range Total Protein 5.1 (L) 6.1 - 8.0 g/dL Albumin 2.5 (L) 3.2 - 5.2 g/dL AST 19 0 - 39 unit/L ALT 18 0 - 55 unit/L Alk Phos 345 (H) 40 - 130 unit/L Total Bilirubin 1.8 (H) 0.2 - 1.3 mg/dL Bili, Direct 1.2 (H) 0.0 - 0.3 mg/dL Prothrombin Time Result Value Ref Range PT 13.4 (H) 9.4 - 12.5 sec INR 1.2 APTT Result Value Ref Range PTT 28 25 - 37 sec Hemogram Result Value Ref Range WBC 7.5 4.0 - 9.5 x10(3)/mcL RBC 2.36 (L) 4.58 - 5.54 x10(6)/mcL Hemoglobin 8.6 (L) 13.7 - 16.5 g/dL Hematocrit 25.9 (L) 40.5 - 48.5 % MCV 109.7 (H) 82.9 - 93.1 fL MCH 36.4 (H) 27.5 - 32.1 pg MCHC 33.2 32.0 - 35.7 g/dL Platelets 195 145 - 357 x10(3)/mcL RDWSD 72.5 (H) 36.0 - 45.0 fL RDWCV 18.0 (H) 11.4 - 13.8 % MPV 10.2 7.6 - 12.9 fL nRBC % Auto 0.0 % nRBC Abs Auto 0.000 0.000 - 0.000 x10(3)/mcL Differential, Automated Result Value Ref Range Neutrophils % 58.2 % Neutr Abs (ANC) 4.36 1.70 - 6.10 x10(3)/mcL Lymphocytes % 33.8 % Lymphocytes Abs 2.5 0.9 - 3.2 x10(3)/mcL Monocytes % 6.4 % Monocyte Abs 0.5 0.3 - 0.9 x10(3)/mcL Eosinophils % 0.8 % Eosinophils Abs 0.1 0.0 - 0.4 x10(3)/mcL Basophils % 0.3 % Basophils Abs 0.0 0.0 - 0.1 x10(3)/mcL Immature Gran % 0.50 % Neda Gran Abs 0.04 0.00 - 0.04 x10(3)/mcL POCT Glucose Result Value Ref Range POC Glucose 164 65 - 199 mg/dL POCT Glucose Result Value Ref Range POC Glucose 186 65 - 199 mg/dL Hemoglobin and Hematocrit, blood Result Value Ref Range Hemoglobin 8.9 (L) 13.7 - 16.5 g/dL Hematocrit 26.1 (L) 40.5 - 48.5 % POCT Glucose Result Value Ref Range POC Glucose 150 65 - 199 mg/dL POCT Glucose Result Value Ref Range POC Glucose 226 (H) 65 - 199 mg/dL Basic Metabolic Panel (non-fasting) Result Value Ref Range Glucose Lvl 225 (H) 65 - 199 mg/dL BUN 9 (L) 10 - 20 mg/dL Creatinine 0.79 (L) 0.80 - 1.50 mg/dL Sodium 139 135 - 145 mmol/L Potassium 4.0 3.5 - 5.0 mmol/L Chloride 107 98 - 107 mmol/L CO2 23 22 - 31 mmol/L Anion Gap 9 5 - 15 mmol/L Calcium 7.8 (L) 8.5 - 10.5 mg/dL Estimated GFR 97 >=60 mL/min/1.73 m?? Magnesium Result Value Ref Range Magnesium 0.72 0.69 - 1.07 mmol/L Phosphorus Result Value Ref Range Phosphorus 2.8 2.5 - 4.5 mg/dL Hepatic Function Panel Result Value Ref Range Total Protein 5.4 (L) 6.1 - 8.0 g/dL Albumin 2.6 (L) 3.2 - 5.2 g/dL AST 31 0 - 39 unit/L ALT 20 0 - 55 unit/L Alk Phos 437 (H) 40 - 130 unit/L Total Bilirubin 1.9 (H) 0.2 - 1.3 mg/dL Bili, Direct 1.3 (H) 0.0 - 0.3 mg/dL Prothrombin Time Result Value Ref Range PT 13.0 (H) 9.4 - 12.5 sec INR 1.1 APTT Result Value Ref Range PTT 28 25 - 37 sec Hemogram Result Value Ref Range WBC 7.4 4.0 - 9.5 x10(3)/mcL RBC 2.50 (L) 4.58 - 5.54 x10(6)/mcL Hemoglobin 9.3 (L) 13.7 - 16.5 g/dL Hematocrit 27.5 (L) 40.5 - 48.5 % MCV 110.0 (H) 82.9 - 93.1 fL MCH 37.2 (H) 27.5 - 32.1 pg MCHC 33.8 32.0 - 35.7 g/dL Platelets 170 145 - 357 x10(3)/mcL RDWSD 70.0 (H) 36.0 - 45.0 fL RDWCV 17.2 (H) 11.4 - 13.8 % MPV 10.1 7.6 - 12.9 fL nRBC % Auto 0.0 % nRBC Abs Auto 0.000 0.000 - 0.000 x10(3)/mcL Differential, Automated Result Value Ref Range Neutrophils % 62.8 % Neutr Abs (ANC) 4.65 1.70 - 6.10 x10(3)/mcL Lymphocytes % 29.4 % Lymphocytes Abs 2.2 0.9 - 3.2 x10(3)/mcL Monocytes % 6.3 % Monocyte Abs 0.5 0.3 - 0.9 x10(3)/mcL Eosinophils % 0.8 % Eosinophils Abs 0.1 0.0 - 0.4 x10(3)/mcL Basophils % 0.3 % Basophils Abs 0.0 0.0 - 0.1 x10(3)/mcL Immature Gran % 0.40 % Neda Gran Abs 0.03 0.00 - 0.04 x10(3)/mcL POCT Glucose Result Value Ref Range POC Glucose 218 (H) 65 - 199 mg/dL Diagnostics: No new imaging. Assessment: John Duarte is a 66 y.o. male with PMHx as above for whom Thoracic Surgery is consulted for surgical biopsy of patient's pulmonary nodules - concerning for metastatic disease - in the setting of otherwise resectable pancreatic cancer. His nodules are very small and deep enough in the lung parenchyma to make VATS wedge resection and percutaneous biopsy challenging. Furthermore, his low DLCO from his PFTs (27%), indicates that he may not tolerate single-lung ventilation for VATS. There is a 4.7 mmnodule in the RLL which may be amenable to percutaneous biopsy with IR - they have scheduled this for 11/03 and we will follow up the results. We do recommend that the patient have IV access and it seems like the nurse was preparing to access the patient's port this morning which will suffice. All plans formulated in discussion with and directed by attending thoracic surgeon Dr. Martino. Kartik Olivas MD 11/02/2021 Thoracic Surgery Service Pager [phone] Associated attestation - Jaime Martino MD - 11/03/2021 2:08 PM EDT I have seen the patient in person and reviewed the resident's above history and I agree with the details as written. The assessment and plan were formulated in discussion with me and I agree with them as documented. Plan: No further episodes of melena. Biopsy scheduled. Will continue to follow. Jaime Martino MD Thoracic Surgery Consult Note - Larry Elise RN - 11/02/2021 2:19 AM EDT Received page that patient lost PIV access and a new PIV is needed. Primary RN reached out to covering MD to obtain order to access the patient's mediport. Covering MD requesting PIV placement instead of accessing mediport. This RN discussed patient with MD Nunn, and informed MD of hospital policy 60291 which states to use the patient's port as the preferred IV route. No order received to access patients mediport. Upon conclusion of conversation states that patient is ok to go without IV access at this time. Consult Note - Kartik Olivas MD - 11/01/2021 11:04 AM EDT [facility] Department of Thoracic Surgery Inpatient Consultation Note [place] [address] FAX: Patient Name: John Duarte Patient : 1955 Patient Patient Location: [address] [place] [address] This consultation request was made by: RAUL RODRIGEZ LEAH R ELDOR, JENNIFER M Consulting thoracic surgery attending: Dr. Martino HPI: John Duarte is a 66 y.o. male with PMHx significant for pancreatic adenocarcinoma, DM, NSTEMI (about 10 years ago, s/p stent, on ASA), HTN and HLD who is currently admitted for anemia due to bleeding from his pancreas tumor. Patient was seen by [facility] Surgical Oncology and Dr. Stevens performed laparoscopy and Mediport placement on 10/17/2021. Patient reports he has been recovering well from this. Patient was then seen by Dr. Streeter who obtained CT Chest on 10/21/2021 which demonstrated bilateral sub-6 mm solid nodules concerning for possible metastatic disease. Patient was then referred to [facility] Thoracic Surgery for further evaluation and was seen on 10/27/21 after which PFTs and TTE were obtained. PFTs revealed DLCO in the low 20s, which is concerning for ability to tolerate single lung ventilation or VATS biopsy. A peripheral 5mm RLL nodule is a possible target for CT guided percutaneous biopsy. ?? He has now been admitted to [facility] following EGD which was scheduled urgently for persistent anemia requiring blood transfusions every couple of days which progressed to melena this morning. EGD revealedbleeding from his nearly obstructive pancreatic mass invading the duodenum to which Hemospray was rené lied. Past Medical History: Patient Active Problem List Diagnosis Date Noted ??? Severe protein-calorie malnutrition 10/31/2021 ??? Pancreatic adenocarcinoma 10/31/2021 ??? Solid nodule of lung less than 6 mm in diameter 10/31/2021 ??? Acute on chronic blood loss anemia 10/31/2021 ??? Duodenal ulcer 10/30/2021 ??? Diabetes mellitus 10/14/2021 ??? Hypertension 10/14/2021 ??? Malignant neoplasm of head of pancreas 10/13/2021 ??? Jaundice 09/30/2021 ??? CIS - Dyslipidemia 04/25/2008 ??? CIS - Non ST elevation myocardial infarction 04/25/2008 ??? CIS - Tobacco abuse 04/25/2008 No past medical history on file. Past Surgical History: Past Surgical History: Procedure Laterality Date ? ? PRO DIAGNOSTIC BONE MARROW BIOPSIES & ASPIRATIONS [place] [place] BONE MARROW BIOPSY AND ASPIRATION; DIAGNOSTIC performed by Sergey Cook MD at [facility] ??? PRO ENDOSCOPIC US EXAM, ESOPH N/A 06/19/2021 UPPER EUS- ENDOSCOPIC ULTRASOUND performed by Gabriel Hilario MD at [facility] ??? PRO ENDOSCOPIC US EXAM, ESOPH N/A 10/07/2021 UPPER EUS- ENDOSCOPIC ULTRASOUND performed by Humberto Dumont MD at [facility] ??? PRO ERCP BALLOON DILATATION BILIARY/PANCREATIC DUCT OR AMPULLA EA DUCT 10/07/2021 ERCP, W BALLOON DILATION OF BILIARY/PANCREATIC DUCT performed by Humberto Dumont MD at [facility] ??? PRO ERCP STENT PLACEMENT BILIARY OR PANCREATIC DUCT 10/07/2021 ERCP, W PLCMNT ENDOSCOPIC STENT BILIARY OR PANCREATIC DUCT performed by Humberto Dumont MD at [facility] ??? PRO ERCP, SPHINCTEROTOMY N/A 10/07/2021 ERCP W/SPHINCTEROTOMY/PAPILLOTOMY performed by Humberto Dumont MD at [facility] ??? PRO FINE NEEDLE ASPIRATION BX W/US GDN 1ST LESION 10/07/2021 FINE NEEDLE ASPIRATION BIOPSY, INC US GUIDANCE; FIRST LESION performed by Humberto Dumont MD at [facility] ??? PRO INSERT TUNNELED CV CATH W SUBQ PORT, AGE 5 YRS OR OLDER N/A 10/17/2021 NAKITA\SILVIA.CATHETER,TUNNELED, WITH SQ PORT OR PUMP OVER 5YR (WRVU 6.04) performed by Jordan Stevens MD at [facility] ??? PRO LAP, DX SURGICAL ABD W/BIOPSY N/A 10/17/2021 LAPAROSCOPY,SURGICAL,WITH BIOPSY, SINGLE OR MULTIPLE (WRVU 5.44) performed by Scooby Stevens MD at [facility] ??? PRO UPGI ENDOSCOPY W/US FN BX 10/07/2021 EGD, W US GUIDED FINE NEEDLE ASPIRATION/BIOPSY performed by Humberto Dumont MD at [facility] ??? PRO UPPER GI ENDOSCOPY, CTRL BLEED N/A 10/30/2021 EGD, W CONTROL OF BLEEDING, ANY METHOD performed by Raul Rodrigez MD at [facility] Medications: Outpatient Medications Marked as Taking for the 10/30/21 encounter (Hospital Encounter) Medication Sig Dispense Refill ??? pantoprazole EC (Protonix) 40 mg Tablet, Delayed Release (E.C.) Take 1 tablet by mouth daily. 90tablet 3 ??? metoprolol succinate XL (Toprol-XL) 25 mg Tablet Sustained Release 24 hr Take by mouth daily. ??? tamsulosin (Flomax) 0.4 mg Capsule Take 0.4 mg by mouth daily. ??? losartan (Cozaar) 25 mg Tablet Take 25 mg by mouth daily. ??? aspirin EC 81 mg Tablet, Delayed Release (E.C.) Take 81 mg by mouth daily. ??? atorvastatin (LIPITOR) 80 mg Tablet 40 mg. 0 ??? metFORMIN (GLUCOPHAGE) 850 mg Tablet 2 times daily. 0 Allergies: No Known Allergies Family History: Family History Problem Relation Age of Onset ??? Cancer Father gastrointestinal ??? Colorectal Cancer Maternal Aunt Social History: Social History Socioeconomic History ??? Marital status: Spouse name: Not on file ??? Number of children: Not on file ??? Years of education: Not on file ??? Highest education level: Not on file Occupational History ??? Not on file Tobacco Use ??? Smoking status: Current Every Day Smoker Packs/day: 0.50 Types: Cigarettes ??? Smokeless tobacco: Never Used ??? Tobacco comment: knows he will have to quit Vaping Use ??? Vaping Use: Never used Substance and Sexual Activity ??? Alcohol use: Yes Comment: about 3 times a year ??? Drug use: Never ??? Sexual activity: Not on file Other Topics Concern ??? Not on file Social History Narrative ??? Not on file Social Determinants of Health Financial Resource Strain: Low Risk ??? Difficulty of Paying Living Expenses: Not very hard Food Insecurity: Unknown ??? Worried About Running Out of Food in the Last Year: Never true ??? Ran Out of Food in the Last Year: Not on file Transportation Needs: Unknown ??? Lack of Transportation (Medical): No ??? Lack of Transportation (Non-Medical): Not on file Physical Activity: Not on file Housing Stability: Low Risk ??? Unable to Pay for Housing in the Last Year: No ??? Number of Places Lived in the Last Year: 1 ??? Unstable Housing in the Last Year: No Review of Systems: Denies abdominal pain, fevers, chills, cough Vitals: Temp: [36.6 ??C (97.9 ??F)-36.9 ??C (98.4 ??F)] Heart Rate: [60-66] Resp: [16-18] BP: (120-156)/(46-61) SpO2: [92 %-96 %] Heart Rate from SpO2: [62 bpm-69 bpm] Wt & BMI By Encounter Date Flowsheet Row Admission (Current) from 10/30/[address] [place] [address] Office Visit from 10/27/2021 in Thoracic Surgery at [facility] Weight 49.9 kg (110 lb) 1 10/30/2021 1350 50.5 kg (111 lb 6.4 oz) 1 10/27/2021 1148 BMI 18.3 1 10/30/2021 1350 19.12 1 10/27/2021 1148 Physical Exam: Gen: NAD, pleasant, lying in bed HEENT: normocephalic, atraumatic, EOMI, sclerae anicteric Neck: supple, trachea midline Card: RRR on monitor Pulm: breathing comfortably on RA Abd: soft Ext: warm, dry, no edema Neuro: A&Ox3, CN II-XII grossly intact, nonfocal, conversant I/O: I/O last 3 completed shifts: In: - Out: 1500 [Urine:1500] Labs: Recent Results (from the past 72 hour(s)) Echocardiogram Transthoracic Result Value Ref Range EF 54 POCT Glucose Result Value Ref Range POC Glucose 191 65 - 199 mg/dL UPPER GI ENDOSCOPY Result Value Ref Range UPPER GI ENDOSCOPY [facility] Endoscopy Procedure Date: 10/30/2021 2:40 PM Patient Name: John Duarte Date of : 1955 Age: 66 Order #: [id number] Instrument Name: [id number] Procedure: Upper GI endoscopy Indications: Melena Providers: Raul Rodrigez MD, Julita Riley RN, Starr Watts, Bedspring Assembler Referring MD: Medicines: Monitored Anesthesia Care Complications: No immediate complications. Procedure: Pre-Anesthesia Assessment: - Prior to the procedure, a History and Physical was performed, and patient medications and allergies were reviewed. The patient is competent. The risks and benefits of the procedure and the sedation options and risks were discussed with the patient. All questions were answered and informed consent was obtained. Patient identification and proposed procedure were verified by the physician in the pre-procedure area. Mental Status Examination: alert and oriented. Airway Examination: normal oropharyngeal airway and neck mobility. CV Examination: normal. Prophylactic Antibiotics: The patient does not require prophylactic antibiotics. Prior Anticoagulants: The patient has taken no anticoagulant or antiplatelet agents. ASA Grade Assessment: III - A patient with severe systemic disease. After reviewing the risks and benefits, the patient was deemed in satisfactory condition to undergo the procedure. The anesthesia plan was to use monitored anesthesia care (MAC). Immediately prior to administration of medications, the patient was re-assessed for adequac y to receive sedatives. The heart rate, respiratory rate, oxygen saturations, blood pressure, adequacy of pulmonary ventilation, and response to care were monitored throughout the procedure. The physical status of the patient was re-assessed after the procedure. The procedure, indications, benefits, risks and alternatives were explained to the patient. Specifically discussed were potential complications including, but not limited to, bleeding, perforation, infection, missing a cancer, and adverse medication reactions. The Endoscope was introduced through the mouth, and advanced to the second part of duodenum The upper GI endoscopy was accomplished without difficulty. The patient tolerated the procedure well. Findings: The esophagus was normal. The stomach was normal. The examined duodenal bulb was normal. However, just at beginning of the C sweep there was an extrinsic narrowing of the duodenum medially and we were unable to pass distally a colonoscope or gastroscope. However, we could visualize erythema and edema beyond the stricture likely consistent with malignant tumor ingrowth. We then sprayed Hemospray to try and control any bleeding from the site. Moderate Sedation: Not applicable - See Anesthesia documentation Impression: - Likely tumor ingrowth in the medial second portion of the duodenum - s/p hemospray application Recommendation: - Admit to medicine - Surgical, thoracic and radiation oncology consultations Procedure Code(s): --- Professional --- 28069, Esophagogastroduodenoscopy, flexible, transoral; diagnostic, including collection of specimen(s) by brushing or washing, when performed (separate procedure) CPT copyright 2020 [employer]. All rights reserved. The codes documented in this report are preliminary and upon electronic intelligence officer review may be revised to meet current compliance requirements. Attending Participation: I was present and participated during the entire procedure, including non-blackwell portions. Raul Rodrigez MD 10/30/2021 3:24:28 PM This report has been signed electronically. Number of Addenda: 0 Note Initiated On: 10/30/2021 2:40 PM POCT Glucose Result Value Ref Range POC Glucose 150 65 - 199 mg/dL EKG 12 Lead Result Value Ref Range Ventricular rate 66 BPM Atrial Rate 66 BPM P-R Interval 172 ms QRS Duration 152 ms Q-T Interval 436 ms QTC Calculated (Bezet) 457 ms Calculated P [place] 65 degrees Calculated R [place] 69 degrees Calculated T [place] 66 degrees INTERPRETATION Normal sinus rhythm Left bundle branch block Abnormal ECG When compared with ECG of 26-APR-2008 07:39, No significant change was found Confirmed by Sienna Tian ([id number]) on 10/31/2021 5:39:51 PM POCT Glucose Result Value Ref Range POC Glucose 281 (H) 65 - 199 mg/dL POCT Glucose Result Value Ref Range POC Glucose 248 (H) 65 - 199 mg/dL POCT Glucose Result Value Ref Range POC Glucose 71 65 - 199 mg/dL POCT Glucose Result Value Ref Range POC Glucose 87 65 - 199 mg/dL POCT Glucose Result Value Ref Range POC Glucose 88 65 - 199 mg/dL Basic Metabolic Panel (non-fasting) Result Value Ref Range Glucose Lvl 92 65 - 199 mg/dL BUN 10 10 - 20 mg/dL Creatinine 0.56 (L) 0.80 - 1.50 mg/dL Sodium 133 (L) 135 - 145 mmol/L Potassium 3.4 (L) 3.5 - 5.0 mmol/L Chloride 104 98 - 107 mmol/L CO2 23 22 - 31 mmol/L Anion Gap 6 5 - 15 mmol/L Calcium 7.9 (L) 8.5 - 10.5 mg/dL Estimated GFR 108 >=60 mL/min/1.73 m?? Magnesium Result Value Ref Range Magnesium 0.71 0.69 - 1.07 mmol/L Phosphorus Result Value Ref Range Phosphorus 3.0 2.5 - 4.5 mg/dL Hepatic Function Panel Result Value Ref Range Total Protein 5.4 (L) 6.1 - 8.0 g/dL Albumin 2.6 (L) 3.2 - 5.2 g/dL AST 24 0 - 39 unit/L ALT 21 0 - 55 unit/L Alk Phos 395 (H) 40 - 130 unit/L Total Bilirubin 2.1 (H) 0.2 - 1.3 mg/dL Bili, Direct 1.4 (H) 0.0 - 0.3 mg/dL Prothrombin Time Result Value Ref Range PT 13.2 (H) 9.4 - 12.5 sec INR 1.2 APTT Result Value Ref Range PTT 27 25 - 37 sec Hemogram Result Value Ref Range WBC 8.5 4.0 - 9.5 x10(3)/mcL RBC 2.25 (L) 4.58 - 5.54 x10(6)/mcL Hemoglobin 8.5 (L) 13.7 - 16.5 g/dL Hematocrit 24.5 (L) 40.5 - 48.5 % MCV 108.9 (H) 82.9 - 93.1 fL MCH 37.8 (H) 27.5 - 32.1 pg MCHC 34.7 32.0 - 35.7 g/dL Platelets 197 145 - 357 x10(3)/mcL RDWSD 72.8 (H) 36.0 - 45.0 fL RDWCV 18.3 (H) 11.4 - 13.8 % MPV 10.2 7.6 - 12.9 fL nRBC % Auto 0.0 % nRBC Abs Auto 0.000 0.000 - 0.000 x10(3)/mcL Differential, Automated Result Value Ref Range Neutrophils % 67.2 % Neutr Abs (ANC) 5.72 1.70 - 6.10 x10(3)/mcL Lymphocytes % 26.4 % Lymphocytes Abs 2.2 0.9 - 3.2 x10(3)/mcL Monocytes % 5.4 % Monocyte Abs 0.5 0.3 - 0.9 x10(3)/mcL Eosinophils % 0.4 % Eosinophils Abs 0.0 0.0 - 0.4 x10(3)/mcL Basophils % 0.2 % Basophils Abs 0.0 0.0 - 0.1 x10(3)/mcL Immature Gran % 0.40 % Neda Gran Abs 0.03 0.00 - 0.04 x10(3)/mcL ABO/Rh Typing Result Value Ref Range ABORh Type A Pos Antibody screen Result Value Ref Range Ab Screen Interp Negative Expires at 2359 on: 11/03/2021 Type and Screen Validity Result Value Ref Range T&S only valid at [facility] H[facility] POCT Glucose Result Value Ref Range POC Glucose 129 65 - 199 mg/dL POCT Glucose Result Value Ref Range POC Glucose 126 65 - 199 mg/dL POCT Glucose Result Value Ref Range POC Glucose 140 65 - 199 mg/dL Basic Metabolic Panel (non-fasting) Result Value Ref Range Glucose Lvl 87 65 - 199 mg/dL BUN 9 (L) 10 - 20 mg/dL Creatinine 0.67 (L) 0.80 - 1.50 mg/dL Sodium 135 135 - 145 mmol/L Potassium 3.6 3.5 - 5.0 mmol/L Chloride 103 98 - 107 mmol/L CO2 23 22 - 31 mmol/L Anion Gap 9 5 - 15 mmol/L Calcium 8.1 (L) 8.5 - 10.5 mg/dL Estimated GFR 102 >=60 mL/min/1.73 m?? POCT Glucose Result Value Ref Range POC Glucose 165 65 - 199 mg/dL POCT Glucose Result Value Ref Range POC Glucose 183 65 - 199 mg/dL POCT Glucose Result Value Ref Range POC Glucose 185 65 - 199 mg/dL Basic Metabolic Panel (non-fasting) Result Value Ref Range Glucose Lvl 170 65 - 199 mg/dL BUN 9 (L) 10 - 20 mg/dL Creatinine 0.69 (L) 0.80 - 1.50 mg/dL Sodium 136 135 - 145 mmol/L Potassium 4.2 3.5 - 5.0 mmol/L Chloride 106 98 - 107 mmol/L CO2 22 22 - 31 mmol/L Anion Gap 8 5 - 15 mmol/L Calcium 7.6 (L) 8.5 - 10.5 mg/dL Estimated GFR 101 >=60 mL/min/1.73 m?? Magnesium Result Value Ref Range Magnesium 0.77 0.69 - 1.07 mmol/L Phosphorus Result Value Ref Range Phosphorus 2.6 2.5 - 4.5 mg/dL Hepatic Function Panel Result Value Ref Range Total Protein 5.1 (L) 6.1 - 8.0 g/dL Albumin 2.5 (L) 3.2 - 5.2 g/dL AST 19 0 - 39 unit/L ALT 18 0 - 55 unit/L Alk Phos 345 (H) 40 - 130 unit/L Total Bilirubin 1.8 (H) 0.2 - 1.3 mg/dL Bili, Direct 1.2 (H) 0.0 - 0.3 mg/dL Prothrombin Time Result Value Ref Range PT 13.4 (H) 9.4 - 12.5 sec INR 1.2 APTT Result Value Ref Range PTT 28 25 - 37 sec Hemogram Result Value Ref Range WBC 7.5 4.0 - 9.5 x10(3)/mcL RBC 2.36 (L) 4.58 - 5.54 x10(6)/mcL Hemoglobin 8.6 (L) 13.7 - 16.5 g/dL Hematocrit 25.9 (L) 40.5 - 48.5 % MCV 109.7 (H) 82.9 - 93.1 fL MCH 36.4 (H) 27.5 - 32.1 pg MCHC 33.2 32.0 - 35.7 g/dL Platelets 195 145 - 357 x10(3)/mcL RDWSD 72.5 (H) 36.0 - 45.0 fL RDWCV 18.0 (H) 11.4 - 13.8 % MPV 10.2 7.6 - 12.9 fL nRBC % Auto 0.0 % nRBC Abs Auto 0.000 0.000 - 0.000 x10(3)/mcL Differential, Automated Result Value Ref Range Neutrophils % 58.2 % Neutr Abs (ANC) 4.36 1.70 - 6.10 x10(3)/mcL Lymphocytes % 33.8 % Lymphocytes Abs 2.5 0.9 - 3.2 x10(3)/mcL Monocytes % 6.4 % Monocyte Abs 0.5 0.3 - 0.9 x10(3)/mcL Eosinophils % 0.8 % Eosinophils Abs 0.1 0.0 - 0.4 x10(3)/mcL Basophils % 0.3 % Basophils Abs 0.0 0.0 - 0.1 x10(3)/mcL Immature Gran % 0.50 % Neda Gran Abs 0.04 0.00 - 0.04 x10(3)/mcL POCT Glucose Result Value Ref Range POC Glucose 164 65 - 199 mg/dL Diagnostics: CT Chest w Contrast Result Date: 10/21/2021 EXAMINATION: CT CHEST W CONTRAST CLINICAL HISTORY: pancreatic head cancer staging TECHNIQUE: 3.75 mmthick axial contiguous sections were obtained through the chest via helical acquisition after the intravenous administration of contrast, Administered 50.0 ml of OMNIPAQUE 240.00 mg/ml. Thin-section rec onstructions as well as coronal and sagittal reformatted images were generated. COMPARISON: CT abdomen and pelvis 09/30/2021 FINDINGS: Pulmonary parenchyma: Sub- 4 mm nodule in the right upper lobe (axial series 5, image 146). 5 mm nodule in the right middle lobe. Round 5 mm solid nodule in the posterior right lower lobe, present on prior CT from 09/30/2021, excluded from [id number] 06/07/2021 CT. 4 mm nodule along the right horizontal fissure (axial series 5, image 304), unchanged from most recent CT. 4 mm nodule in the peripheral left lower lobe (axial series 5, image 329). Emphysematous changes most evident at the apices and bases. Right middle and left lower lobe scarring. Airways: Central and s egmental airways are patent Pleura: Thickening of the right horizontal fissure. No pleural fluid Lymph nodes: No pathologically enlarged lymph nodes. Heart, pericardium, and great vessels: Right chest port with tip terminating at the mid SVC. Normal cardiac size no pericardial fluid. Other mediastinalstructures: No significant findings. Lower neck: No significant findings. Upper abdomen: Intrahepatic biliary dilatation, decreased from prior. Interval placement of a CBD stent. Persistent pancreatic ductal dilatation. There is perihepatic ascites, and new as compared to prior. Body wall soft tissues: No significant findings. Skeletal structures: No acute fracture or destructive osseous lesion. Multilevel degenerative changes of the spine.. 1. Bilateral sub-6 mm solid nodules. These are indeterminant; while small nodules noted this size are statistically of a post infectious or inflammatory process, in the setting of a primary malignancy,metastatic disease cannot be excluded. If there are CT examinations available prior to 06/07/2021, comparison could be made to evaluate for stability. 2. No lymphadenopathy. 3. New partially visualized perihepatic ascites. Assessment: John Duarte is a 66 y.o. male with PMHx as above for whom Thoracic Surgery is consulted for surgical biopsy of patient's pulmonary nodules - concerning for metastatic disease - in the setting of otherwise resectable pancreatic cancer. His nodules are very small and deep enough in the lung parenchyma to make VATS wedge resection and percutaneous biopsy challenging. Furthermore, his low DLCO from his PFTs (27%), indicates that he may not tolerate single-lung ventilation for VATS. There is a 4.7 mmnodule in the RLL which may be amenable to percutaneous biopsy with IR - they have scheduled this for 11/03 and we will follow up the results. All plans formulated in discussion with and directed by attending thoracic surgeon Dr. Martino. Kartik Olivas MD 11/01/2021 Thoracic Surgery Service Pager [phone] Associated attestation - Jaime Martino MD - 11/03/2021 1:53 PM EDT I have seen the patient in person and reviewed the resident's above history and I agree with the details as written. The assessment and plan were formulated in discussion with me and I agree with them as documented. Plan: One episode of melena this am. Hgb stable. Primary team to monitor. CT guided lung biopsy scheduled for Wednesday. Jaime Martino MD Thoracic Surgery Consult Note - Torito Sherman MD - 10/31/2021 1:58 PM EDT [facility] Department of Thoracic Surgery Inpatient Consultation Note [place], [place] [address] FAX: Patient Name: John Duarte Patient : 1955 Patient Patient Location: This consultation request was made by: RAUL RODRIGEZ LEAH R Consulting thoracic surgery attending: Dr. Thapa HPI: John Duarte is a 66 y.o. male with PMHx significant for pancreatic adenocarcinoma, DM, NSTEMI (about 10 years ago, s/p stent, on ASA), HTN and HLD. Patient reports that in May 2021 he underwent EGD/EUS which demonstrated two benign appearing 5-6 mm cystic lesions of the pancreas. Patient had been feeling well, but then experienced worsening of his DM requiring insulin, as well as developing jaundice. CT Abd was performed 09/30/2021 which demonstrated new intra and extrahepatic biliary dilation and increasing main pancreatic duct dilation in the setting of a new mass or inflammatory process in the pancreatic duodenal groove. He underwent repeat EGD/EUS/ERCP on 10/07/2021 - biliary stent was placed and pancreatic head biopsy demonstrated adenocarcinoma. Patient was then seen by [facility] Surgical Oncology and Dr. Stevens performed laparoscopy and Mediport placement on 10/17/2021. Patient reports he has been recovering well from this. Patient was then seen by Dr. Streeter who obtained CT Chest on 10/21/2021 which demonstrated bilateral sub-6 mm solid nodules concerning for possible metastatic disease. Patient was then referred to [facility] Thoracic Surgery for further evaluation and was seen on 10/27/21 after which PFTs and TTE were obtained. PFTs revealed DLCO in the low 20s, which is concerning for ability to tolerate single lung ventilation or VATS biopsy. A peripheral 5mm RLL nodule is a possible target for CT guided percutaneous biopsy. ?? He has now been admitted to [facility] following EGD which was scheduled urgently for persistent anemia requiring blood transfusions every couple of days which progressed to melena this morning. EGD revealedbleeding from his nearly obstructive pancreatic mass invading the duodenum to which Hemospray was rené lied. Patient is a current smoker of about 1/2 ppd, reports he has been working on [employer], previously smoked about 1 ppd for about 27 years (estimate 27 pack year smoking history. Denies ETOH / illicitdrug use. He reports he is able to walk without limitation on the flat and up 1-2 flights of stairs without stopping. 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 He reports weight loss of about 20 lbs over the past month and about 7 lbs over the past week. Past Medical History: Patient Active Problem List Diagnosis Date Noted ??? Duodenal ulcer 10/30/2021 ??? Diabetes mellitus 10/14/2021 ??? Hypertension 10/14/2021 ??? Malignant neoplasm of head of pancreas 10/13/2021 ??? Jaundice 09/30/2021 ??? CIS - Dyslipidemia 04/25/2008 ??? CIS - Non ST elevation myocardial infarction 04/25/2008 ??? CIS - Tobacco abuse 04/25/2008 No past medical history on file. Past Surgical History: Past Surgical History: Procedure Laterality Date ? ? PRO DIAGNOSTIC BONE MARROW BIOPSIES & ASPIRATIONS Left 10/24/2018 ([facility]) BONE MARROW BIOPSY AND ASPIRATION; DIAGNOSTIC performed by Sergey Cook MD at [facility] ??? PRO ENDOSCOPIC US EXAM, ESOPH N/A 06/19/2021 UPPER EUS- ENDOSCOPIC ULTRASOUND performed by Gabriel Hilario MD at [facility] ??? PRO ENDOSCOPIC US EXAM, ESOPH N/A 10/07/2021 UPPER EUS- ENDOSCOPIC ULTRASOUND performed by Humberto Dumont MD at [facility] ??? PRO ERCP BALLOON DILATATION BILIARY/PANCREATIC DUCT OR AMPULLA EA DUCT 10/07/2021 ERCP, W BALLOON DILATION OF BILIARY/PANCREATIC DUCT performed by Humberto Dumont MD at [facility] END[facility] ??? PRO ERCP STENT PLACEMENT BILIARY OR PANCREATIC DUCT 10/07/2021 ERCP, W PLCMNT ENDOSCOPIC STENT BILIARY OR PANCREATIC DUCT performed by Humberto Dumont MD at [facility] ??? PRO ERCP, SPHINCTEROTOMY N/A 10/07/2021 ERCP W/SPHINCTEROTOMY/PAPILLOTOMY performed by Humberto Dumont MD at [facility] ??? PRO FINE NEEDLE ASPIRATION BX W/US GDN 1ST LESION 10/07/2021 FINE NEEDLE ASPIRATION BIOPSY, INC US GUIDANCE; FIRST LESION performed by Humberto Dumont MD at [facility] ??? PRO INSERT TUNNELED CV CATH W SUBQ PORT, AGE 4 YRS OR OLDER N/A 10/17/2021 NAKITA\SILVIA.CATHETER,TUNNELED, WITH SQ PORT OR PUMP OVER 5YR (WRVU 6.04) performed by Jordan Stevens MD at [facility] ??? PRO LAP, DX SURGICAL ABD W/BIOPSY N/A 10/17/2021 LAPAROSCOPY,SURGICAL,WITH BIOPSY, SINGLE OR MULTIPLE (WRVU 5.44) performed by Scooby Stevens MD at [facility] ??? PRO UPGI ENDOSCOPY W/US FN BX 10/07/2021 EGD, W US GUIDED FINE NEEDLE ASPIRATION/BIOPSY performed by Humberto Dumont MD at [facility] ??? PRO UPPER GI ENDOSCOPY, CTRL BLEED N/A 10/30/2021 EGD, W CONTROL OF BLEEDING, ANY METHOD performed by Raul Rodrigez MD at [facility] Medications: Outpatient Medications Marked as Taking for the 10/30/21 encounter (Hospital Encounter) Medication Sig Dispense Refill ??? pantoprazole EC (Protonix) 40 mg Tablet, Delayed Release (E.C.) Take 1 tablet by mouth daily. 90tablet 3 ??? metoprolol succinate XL (Toprol-XL) 25 mg Tablet Sustained Release 24 hr Take by mouth daily. ??? tamsulosin (Flomax) 0.4 mg Capsule Take 0.4 mg by mouth daily. ??? losartan (Cozaar) 25 mg Tablet Take 25 mg by mouth daily. ??? aspirin EC 81 mg Tablet, Delayed Release (E.C.) Take 81 mg by mouth daily. ??? atorvastatin (LIPITOR) 80 mg Tablet 40 mg. 0 ??? metFORMIN (GLUCOPHAGE) 850 mg Tablet 2 times daily. 0 Allergies: No Known Allergies Family History: Family History Problem Relation Age of Onset ??? Cancer Father gastrointestinal ??? Colorectal Cancer Maternal Aunt Social History: Social History Socioeconomic History ??? Marital status: Spouse name: Not on file ??? Number of children: Not on file ??? Years of education: Not on file ??? Highest education level: Not on file Occupational History ??? Not on file Tobacco Use ??? Smoking status: Current Every Day Smoker Packs/day: 0.50 Types: Cigarettes ??? Smokeless tobacco: Never Used ??? Tobacco comment: knows he will have to quit Vaping Use ??? Vaping Use: Never used Substance and Sexual Activity ??? Alcohol use: Yes Comment: about 3 times a year ??? Drug use: Never ??? Sexual activity: Not on file Other Topics Concern ??? Not on file Social History Narrative ??? Not on file Social Determinants of Health Financial Resource Strain: Low Risk ??? Difficulty of Paying Living Expenses: Not very hard Food Insecurity: Unknown ??? Worried About Running Out of Food in the Last Year: Never true ??? Ran Out of Food in the Last Year: Not on file Transportation Needs: Unknown ??? Lack of Transportation (Medical): No ??? Lack of Transportation (Non-Medical): Not on file Physical Activity: Not on file Housing Stability: Low Risk ??? Unable to Pay for Housing in the Last Year: No ??? Number of Places Lived in the Last Year: 1 ??? Unstable Housing in the Last Year: No Review of Systems: Patient denies Vitals: Temp: [36.6 ??C (97.9 ??F)-37 ??C (98.6 ??F)] Heart Rate: [60-65] Resp: [18-20] BP: (136-161)/(50-58) SpO2: [94 %-100 %] Heart Rate from SpO2: [60 bpm-68 bpm] Wt & BMI By Encounter Date Flowsheet Row Admission (Current) from 10/30/2021 in 1 [facility] Office Visit from 10/27/2021 in Thoracic Surgery at [facility] Weight 49.9 kg (110 lb) 1 10/30/2021 1350 50.5 kg (111 lb 6.4 oz) 1 10/27/2021 1148 BMI 18.3 1 10/30/2021 1350 19.12 1 10/27/2021 1148 Physical Exam: Gen: NAD, pleasant, lying in bed HEENT: normocephalic, atraumatic, EOMI, sclerae anicteric Neck: supple, trachea midline Card: RRR on monitor, systolic murmur on auscultation Pulm: breathing comfortably on RA Abd: soft Ext: warm, dry, no edema Neuro: A&Ox3, CN II-XII grossly intact, nonfocal, conversant I/O: I/O last 3 completed shifts: In: 240 [P.O.:240] Out: 800 [Urine:800] Labs: Recent Results (from the past 72 hour(s)) Echocardiogram Transthoracic Result Value Ref Range EF 54 POCT Glucose Result Value Ref Range POC Glucose 191 65 - 199 mg/dL UPPER GI ENDOSCOPY Result Value Ref Range UPPER GI ENDOSCOPY [facility] Endoscopy Procedure Date: 10/30/2021 2:40 PM Patient Name: John Duarte Date of : 1955 Age: 66 Order #: [id number] Instrument Name: [id number] Procedure: Upper GI endoscopy Indications: Melena Providers: Raul Rodrigez MD, Carolee Isabel, Julita Burleson RN, Starr Watts, Bedspring Assembler Referring MD: Medicines: Monitored Anesthesia Care Complications: No immediate complications. Procedure: Pre-Anesthesia Assessment: - Prior to the procedure, a History and Physical was performed, and patient medications and allergies were reviewed. The patient is competent. The risks and benefits of the procedure and the sedation options and risks were discussed with the patient. All questions were answered and informed consent was obtained. Patient identification and proposed procedure were verified by the physician in the pre-procedure area. Mental Status Examination: alert and oriented. Airway Examination: normal oropharyngeal airway and neck mobility. CV Examination: normal. Prophylactic Antibiotics: The patient does not require prophylactic antibiotics. Prior Anticoagulants: The patient has taken no anticoagulant or antiplatelet agents. ASA Grade Assessment: III - A patient with severe systemic disease. After reviewing the risks and benefits, the patient was deemed in satisfactory condition to undergo the procedure. The anesthesia plan was to use monitored anesthesia care (MAC). Immediately prior to administration of medications, the patient was re-assessed for adequac y to receive sedatives. The heart rate, respiratory rate, oxygen saturations, blood pressure, adequacy of pulmonary ventilation, and response to care were monitored throughout the procedure. The physical status of the patient was re-assessed after the procedure. The procedure, indications, benefits, risks and alternatives were explained to the patient. Specifically discussed were potential complications including, but not limited to, bleeding, perforation, infection, missing a cancer, and adverse medication reactions. The Endoscope was introduced through the mouth, and advanced to the second part of duodenum The upper GI endoscopy was accomplished without difficulty. The patient tolerated the procedure well. Findings: The esophagus was normal. The stomach was normal. The examined duodenal bulb was normal. However, just at beginning of the C sweep there was an extrinsic narrowing of the duodenum medially and we were unable to pass distally a colonoscope or gastroscope. However, we could visualize erythema and edema beyond the stricture likely consistent with malignant tumor ingrowth. We then sprayed Hemospray to try and control any bleeding from the site. Moderate Sedation: Not applicable - See Anesthesia documentation Impression: - Likely tumor ingrowth in the medial second portion of the duodenum - s/p hemospray application Recommendation: - Admit to medicine - Surgical, thoracic and radiation oncology consultations Procedure Code(s): --- Professional --- 98322, Esophagogastroduodenoscopy, flexible, transoral; diagnostic, including collection of specimen(s) by brushing or washing, when performed (separate procedure) CPT copyright 2020 [employer]. All rights reserved. The codes documented in this report are preliminary and upon electronic intelligence officer review may be revised to meet current compliance requirements. Attending Participation: I was present and participated during the entire procedure, including non-blackwell portions. Raul Rodrigez MD 10/30/2021 3:24:28 PM This report has been signed electronically. Number of Addenda: 0 Note Initiated On: 10/30/2021 2:40 PM POCT Glucose Result Value Ref Range POC Glucose 150 65 - 199 mg/dL EKG 12 Lead Result Value Ref Range Ventricular rate 66 BPM Atrial Rate 66 BPM P-R Interval 172 ms QRS Duration 152 ms Q-T Interval 436 ms QTC Calculated (Bezet) 457 ms Calculated P [place] 65 degrees Calculated R [place] 69 degrees Calculated T [place] 66 degrees INTERPRETATION Normal sinus rhythm Left bundle branch block Abnormal ECG When compared with ECG of 26-APR-2008 07:39, No significant change was found POCT Glucose Result Value Ref Range POC Glucose 281 (H) 65 - 199 mg/dL POCT Glucose Result Value Ref Range POC Glucose 248 (H) 65 - 199 mg/dL POCT Glucose Result Value Ref Range POC Glucose 71 65 - 199 mg/dL POCT Glucose Result Value Ref Range POC Glucose 87 65 - 199 mg/dL POCT Glucose Result Value Ref Range POC Glucose 88 65 - 199 mg/dL Basic Metabolic Panel (non-fasting) Result Value Ref Range Glucose Lvl 92 65 - 199 mg/dL BUN 10 10 - 20 mg/dL Creatinine 0.56 (L) 0.80 - 1.50 mg/dL Sodium 133 (L) 135 - 145 mmol/L Potassium 3.4 (L) 3.5 - 5.0 mmol/L Chloride 104 98 - 107 mmol/L CO2 23 22 - 31 mmol/L Anion Gap 6 5 - 15 mmol/L Calcium 7.9 (L) 8.5 - 10.5 mg/dL Estimated GFR 108 >=60 mL/min/1.73 m?? Magnesium Result Value Ref Range Magnesium 0.71 0.69 - 1.07 mmol/L Phosphorus Result Value Ref Range Phosphorus 3.0 2.5 - 4.5 mg/dL Hepatic Function Panel Result Value Ref Range Total Protein 5.4 (L) 6.1 - 8.0 g/dL Albumin 2.6 (L) 3.2 - 5.2 g/dL AST 24 0 - 39 unit/L ALT 21 0 - 55 unit/L Alk Phos 395 (H) 40 - 130 unit/L Total Bilirubin 2.1 (H) 0.2 - 1.3 mg/dL Bili, Direct 1.4 (H) 0.0 - 0.3 mg/dL Prothrombin Time Result Value Ref Range PT 13.2 (H) 9.4 - 12.5 sec INR 1.2 APTT Result Value Ref Range PTT 27 25 - 37 sec Hemogram Result Value Ref Range WBC 8.5 4.0 - 9.5 x10(3)/mcL RBC 2.25 (L) 4.58 - 5.54 x10(6)/mcL Hemoglobin 8.5 (L) 13.7 - 16.5 g/dL Hematocrit 24.5 (L) 40.5 - 48.5 % MCV 108.9 (H) 82.9 - 93.1 fL MCH 37.8 (H) 27.5 - 32.1 pg MCHC 34.7 32.0 - 35.7 g/dL Platelets 197 145 - 357 x10(3)/mcL RDWSD 72.8 (H) 36.0 - 45.0 fL RDWCV 18.3 (H) 11.4 - 13.8 % MPV 10.2 7.6 - 12.9 fL nRBC % Auto 0.0 % nRBC Abs Auto 0.000 0.000 - 0.000 x10(3)/mcL Differential, Automated Result Value Ref Range Neutrophils % 67.2 % Neutr Abs (ANC) 5.72 1.70 - 6.10 x10(3)/mcL Lymphocytes % 26.4 % Lymphocytes Abs 2.2 0.9 - 3.2 x10(3)/mcL Monocytes % 5.4 % Monocyte Abs 0.5 0.3 - 0.9 x10(3)/mcL Eosinophils % 0.4 % Eosinophils Abs 0.0 0.0 - 0.4 x10(3)/mcL Basophils % 0.2 % Basophils Abs 0.0 0.0 - 0.1 x10(3)/mcL Immature Gran % 0.40 % Neda Gran Abs 0.03 0.00 - 0.04 x10(3)/mcL ABO/Rh Typing Result Value Ref Range ABORh Type A Pos Antibody screen Result Value Ref Range Ab Screen Interp Negative Expires at 2359 on: 11/03/2021 Type and Screen Validity Result Value Ref Range T&S only valid at [facility] Hosp POCT Glucose Result Value Ref Range POC Glucose 129 65 - 199 mg/dL POCT Glucose Result Value Ref Range POC Glucose 126 65 - 199 mg/dL POCT Glucose Result Value Ref Range POC Glucose 140 65 - 199 mg/dL Diagnostics: CT Chest w Contrast Result Date: 10/21/2021 EXAMINATION: CT CHEST W CONTRAST CLINICAL HISTORY: pancreatic head cancer staging TECHNIQUE: 3.75 mmthick axial contiguous sections were obtained through the chest via helical acquisition after the intravenous administration of contrast, Administered 50.0 ml of OMNIPAQUE 240.00 mg/ml. Thin-section rec onstructions as well as coronal and sagittal reformatted images were generated. COMPARISON: CT abdomen and pelvis 09/30/2021 FINDINGS: Pulmonary parenchyma: Sub- 4 mm nodule in the right upper lobe (axial series 5, image 146). 5 mm nodule in the right middle lobe. Round 5 mm solid nodule in the posterior right lower lobe, present on prior CT from 09/30/2021, excluded from [id number] 06/07/2021 CT. 4 mm nodule along the right horizontal fissure (axial series 5, image 304), unchanged from most recent CT. 4 mm nodule in the peripheral left lower lobe (axial series 5, image 329). Emphysematous changes most evident at the apices and bases. Right middle and left lower lobe scarring. Airways: Central and s egmental airways are patent Pleura: Thickening of the right horizontal fissure. No pleural fluid Lymph nodes: No pathologically enlarged lymph nodes. Heart, pericardium, and great vessels: Right chest port with tip terminating at the mid SVC. Normal cardiac size no pericardial fluid. Other mediastinalstructures: No significant findings. Lower neck: No significant findings. Upper abdomen: Intrahepatic biliary dilatation, decreased from prior. Interval placement of a CBD stent. Persistent pancreatic ductal dilatation. There is perihepatic ascites, and new as compared to prior. Body wall soft tissues: No significant findings. Skeletal structures: No acute fracture or destructive osseous lesion. Multilevel degenerative changes of the spine.. 1. Bilateral sub-6 mm solid nodules. These are indeterminant; while small nodules noted this size are statistically of a post infectious or inflammatory process, in the setting of a primary malignancy,metastatic disease cannot be excluded. If there are CT examinations available prior to 06/07/2021, comparison could be made to evaluate for stability. 2. No lymphadenopathy. 3. New partially visualized perihepatic ascites. Assessment: John Duarte is a 66 y.o. male with PMHx as above for whom Thoracic Surgery is consulted for surgical biopsy of patient's pulmonary nodules - concerning for metastatic disease - in the setting of otherwise resectable pancreatic cancer. His nodules are very small and deep enough in the lung parenchyma to make VATS wedge resection and percutaneous biopsy challenging. Furthermore, his low DLCO from his PFTs (27%), indicates that he may not tolerate single-lung ventilation for VATS. There is a 4.7 mmnodule in the RLL which may be amenable to percutaneous biopsy with IR. We have consulted IR who areplanning a CT guided biopsy. Case discussed with primary team. All plans formulated in discussion with and directed by attending thoracic surgeon Dr. Thapa. Torito Sherman MD 10/31/2021 Thoracic Surgery Service Pager [phone] Initial Assessments - Erica Mtz MSW - 10/31/2021 11:55 AM EDT Office of Care Management Initial Assessment LESVIA [place] reviewed record and discussed patient with Care Team. Source of Information: Team, bedside nurse, medical record, and Chart Review Reason for Hospitalization: Duodenal ulcer Covid Vaccination Status: (Unable to assess) Last COVID test: Past medical History: No past medical history on file. Hospitalizations Within the Past 30 Days: no previous admission in last 30 days Current Decision-Making Capacity: Self If AD's have not been completed the following surrogate would be surrogate decision maker per [place] decision making law. (Only good for 180 days) Any patient receiving care in [place] must abide by [place] law. The hierarchy for surrogate decision making is: (a) Patient???s spouse, or civil union partner or common law spouse unless there is a divorce proceeding, separation agreement, or restraining order limiting that person???s relationship with the patient. (b) Any adult son or daughter of the patient. (c) Either parent of the patient. (d) Any adult brother or sister of the patient. (e) Any adult grandchild of the patient. (f) Any grandparent of the patient. (g) Any adult aunt, uncle, niece, or nephew of the patient. (h) A close friend of the patient. (i) The agent with financial power of wellness manager or a conservator appointed in accordance with RSA 464-A. (j) The guardian of the patient???s estate. Advance Care Planning: Attempt Cardiopulmonary Resuscitation - Inpatient <no information> -Advanced Directive: No, need to discuss (sibling Rober Duarte - per surrogacy) Current Coping/Education/Information Needs: Patient appears to be coping well and making his needs known. Patient may benefit from AD information/education. Current Functional Ability: Independent Functional Status Prior to Admission: Independent Prior ADLs & IADLs: Independent with all ADLs & IADLs Home Environment: Others in the home: alone. Current Living Arrangements: home/apartment/condo. Accessibility Concerns:No concerns. Resource / Environmental Concerns: Resource/Environmental Concerns: none Current DME: other (see comments), glucometer (Insulin) Home Address confirmed as: [address] [facility] [address] Social & Family Supports: All names listed below confirmed with patient as current and correct Extended Emergency Contact Information Primary Emergency Contact: Rober Duarte Relation: Sibling Secondary Emergency Contact: Del Saunders Mobile Relation: Friend Current Care Provided by: self Provides Primary Care For: no one Caregiver if needed: none Quality of Family relationships: helpful, involved, supportive Community Resources being provided currently: clinic(s) (GI and oncology) Behavioral Health History: None reported Substance Use/Abuse confirmed: Social History Tobacco Use Smoking Status Current Every Day Smoker ??? Packs/day: 0.50 ??? Types: Cigarettes Smokeless Tobacco Never Used Tobacco Comment knows he will have to quit In the past year have you used an illegal drug or used a prescription medication for non-medical reasons?: No 0 No problems reported 1-2 Low level 3-5 Moderate level 6-8 Substantial level 9- 10 Severe level In the past year have you had 5 or more drinks a day containing alcohol?: No 0 to 7 points: Low risk 8 to 15 points: Medium risk 16 to 19 points: High risk 20 to 40 points: Addiction likely Other Pertinent/Service Specific Information: None identified at this time. Health/Prescription Coverage: Primary Insurance: [facility] MANAGED MEDICARE Payor: [facility] / Plan: [employer] RPPO MANAGED MEDICARE COMPLETE / Product Type: *No Product type* / Secondary Insurance: N/A Secondary Insurance? (Only Medicare A&B): No ; Prescription Coverage: No Preferred Pharmacy: [id number] - [place], [place] - [address] [facility] [address] [address] [place] Status: Patient is a : No Primary Care Provider: LIBRADO Mcclendon [phone] Patient/Caregiver Goals of Treatment: Patient plans to discharge home Potential Needs for Transition of Care: none Agency Referrals: To be determined pending medical status and functional progress. Transportation: no concerns Transportation Anticipated: family or friend will provide Concerns to be Addressed: no discharge needs identified Assessment: Patient is a 66 year old male admitted for duodenal ulcer. Plan: No SW need identified at this time. SOCIAL AND HUMAN SERVICES ASSISTANT will remain available. A member of the Care Management team will continue to monitor progress, follow for continuity of care and assist with transition of care planning. LESVIA Johnson [facility] Medicine/ Medical Specialties Pager- [phone] Consult Note - Kartik Olivas MD - 10/30/2021 5:34 PM EDT [facility] Department of Thoracic Surgery Inpatient Consultation Note [place] [address] FAX: Patient Name: John Duarte Patient : 1955 Patient Patient Location: [address] This consultation request was made by: RAUL RODRIGEZ LEAH R Consulting thoracic surgery attending: Dr. Thapa HPI: John Duarte is a 66 y.o. male with PMHx significant for pancreatic adenocarcinoma, DM, NSTEMI (about 10 years ago, s/p stent, on ASA), HTN and HLD. Patient reports that in May 2021 he underwent EGD/EUS which demonstrated two benign appearing 5-6 mm cystic lesions of the pancreas. Patient had been feeling well, but then experienced worsening of his DM requiring insulin, as well as developing jaundice. CT Abd was performed 09/30/2021 which demonstrated new intra and extrahepatic biliary dilation and increasing main pancreatic duct dilation in the setting of a new mass or inflammatory process in the pancreatic duodenal groove. He underwent repeat EGD/EUS/ERCP on 10/07/2021 - biliary stent was placed and pancreatic head biopsy demonstrated adenocarcinoma. Patient was then seen by [facility] Surgical Oncology and Dr. Stevens performed laparoscopy and Mediport placement on 10/17/2021. Patient reports he has been recovering well from this. Patient was then seen by Dr. Streeter who obtained CT Chest on 10/21/2021 which demonstrated bilateral sub-6 mm solid nodules concerning for possible metastatic disease. Patient was then referred to [facility] Thoracic Surgery for further evaluation and was seen on 10/27/21 after which PFTs and TTE were obtained. ?? He has now being admitted to [facility] following EGD which was scheduled urgently for persistent anemia requiring blood transfusions every couple of days which progressed to melena this morning. EGD revealed bleeding from his nearly obstructive pancreatic mass invading the duodenum to which Hemospray was ap plied. Patient is a current smoker of about 1/2 ppd, reports he has been working on [employer] back, previously smoked about 1 ppd for about 27 years (estimate 27 pack year smoking history. Denies ETOH / illicitdrug use. He reports he is able to walk without limitation on the flat and up 1-2 flights of stairs without stopping. 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 He reports weight loss of about 20 lbs over the past month and about 7 lbs over the past week. Past Medical History: Patient Active Problem List Diagnosis Date Noted ??? Duodenal ulcer 10/30/2021 ??? Diabetes mellitus 10/14/2021 ??? Hypertension 10/14/2021 ??? Malignant neoplasm of head of pancreas 10/13/2021 ??? Jaundice 09/30/2021 ??? CIS - Dyslipidemia 04/25/2008 ??? CIS - Non ST elevation myocardial infarction 04/25/2008 ??? CIS - Tobacco abuse 04/25/2008 No past medical history on file. Past Surgical History: Past Surgical History: Procedure Laterality Date ? ? PRO DIAGNOSTIC BONE MARROW BIOPSIES & ASPIRATIONS Left 10/24/2018 ([facility]) BONE MARROW BIOPSY AND ASPIRATION; DIAGNOSTIC performed by Sergey Cook MD at [facility] ??? PRO ENDOSCOPIC US EXAM, ESOPH N/A 06/19/2021 UPPER EUS- ENDOSCOPIC ULTRASOUND performed by Gabriel Hilario MD at [facility] ENDOSCOPY ??? PRO ENDOSCOPIC US EXAM, ESOPH N/A 10/07/2021 UPPER EUS- ENDOSCOPIC ULTRASOUND performed by Humberto Dumont MD at [facility] ENDOSCOPY ??? PRO ERCP BALLOON DILATATION BILIARY/PANCREATIC DUCT OR AMPULLA EA DUCT 10/07/2021 ERCP, W BALLOON DILATION OF BILIARY/PANCREATIC DUCT performed by Humberto Dumont MD at [facility] ENDOSCOPY ??? PRO ERCP STENT PLACEMENT BILIARY OR PANCREATIC DUCT 10/07/2021 ERCP, W PLCMNT ENDOSCOPIC STENT BILIARY OR PANCREATIC DUCT performed by Humberto Dumont MD at [facility] ENDOSCOPY ??? PRO ERCP, SPHINCTEROTOMY N/A 10/07/2021 ERCP W/SPHINCTEROTOMY/PAPILLOTOMY performed by Humberto Dumont MD at [facility] ENDOSCOPY ??? PRO FINE NEEDLE ASPIRATION BX W/US GDN 1ST LESION 10/07/2021 FINE NEEDLE ASPIRATION BIOPSY, INC US GUIDANCE; FIRST LESION performed by Humberto Dumont MD at [facility] ENDOSCOPY ??? PRO INSERT TUNNELED CV CATH W SUBQ PORT, AGE 4 YRS OR OLDER N/A 10/17/2021 NAKITA\SILVIA.CATHETER,TUNNELED, WITH SQ PORT OR PUMP OVER 5YR (WRVU 6.04) performed by Jordan Stevens MD at [facility] OSC ??? PRO LAP, DX SURGICAL ABD W/BIOPSY N/A 10/17/2021 LAPAROSCOPY,SURGICAL,WITH BIOPSY, SINGLE OR MULTIPLE (WRVU 5.44) performed by Scooby Stevens MD at [facility] OSC ??? PRO UPGI ENDOSCOPY W/US FN BX 10/07/2021 EGD, W US GUIDED FINE NEEDLE ASPIRATION/BIOPSY performed by Humberto Dumont MD at [facility] ENDOSCOPY Medications: Outpatient Medications Marked as Taking for the 10/30/21 encounter (Hospital Encounter) Medication Sig Dispense Refill ??? pantoprazole EC (Protonix) 40 mg Tablet, Delayed Release (E.C.) Take 1 tablet by mouth daily. 90tablet 3 ??? metoprolol succinate XL (Toprol-XL) 25 mg Tablet Sustained Release 24 hr Take by mouth daily. ??? tamsulosin (Flomax) 0.4 mg Capsule Take 0.4 mg by mouth daily. ??? losartan (Cozaar) 25 mg Tablet Take 25 mg by mouth daily. ??? aspirin EC 81 mg Tablet, Delayed Release (E.C.) Take 81 mg by mouth daily. ??? atorvastatin (LIPITOR) 80 mg Tablet 40 mg. 0 ??? metFORMIN (GLUCOPHAGE) 850 mg Tablet 2 times daily. 0 Allergies: No Known Allergies Family History: Family History Problem Relation Age of Onset ??? Cancer Father gastrointestinal ??? Colorectal Cancer Maternal Aunt Social History: Social History Socioeconomic History ??? Marital status: Spouse name: Not on file ??? Number of children: Not on file ??? Years of education: Not on file ??? Highest education level: Not on file Occupational History ??? Not on file Tobacco Use ??? Smoking status: Current Every Day Smoker Packs/day: 0.50 Types: Cigarettes ??? Smokeless tobacco: Never Used ??? Tobacco comment: knows he will have to quit Vaping Use ??? Vaping Use: Never used Substance and Sexual Activity ??? Alcohol use: Yes Comment: about 3 times a year ??? Drug use: Never ??? Sexual activity: Not on file Other Topics Concern ??? Not on file Social History Narrative ??? Not on file Social Determinants of Health Financial Resource Strain: Low Risk ??? Difficulty of Paying Living Expenses: Not very hard Food Insecurity: Unknown ??? Worried About Running Out of Food in the Last Year: Never true ??? Ran Out of Food in the Last Year: Not on file Transportation Needs: Unknown ??? Lack of Transportation (Medical): No ??? Lack of Transportation (Non-Medical): Not on file Physical Activity: Not on file Housing Stability: Low Risk ??? Unable to Pay for Housing in the Last Year: No ??? Number of Places Lived in the Last Year: 1 ??? Unstable Housing in the Last Year: No Review of Systems: Patient denies Vitals: Temp: [36.5 ??C (97.7 ??F)] Heart Rate: [57] Resp: [18-20] BP: (146-161)/(54-58) SpO2: [99 %-100 %] Heart Rate from SpO2: [60 bpm-62 bpm] Wt & BMI By Encounter Date Flowsheet Row Admission (Current) from 10/30/2021 in Gastroenterology at [facility] Office Visit from 10/27/2021 in Thoracic Surgery at [facility] Weight 49.9 kg (110 lb) 1 10/30/2021 1350 50.5 kg (111 lb 6.4 oz) 1 10/27/2021 1148 BMI 18.3 1 10/30/2021 1350 19.12 1 10/27/2021 1148 Physical Exam: Gen: NAD, pleasant, lying in bed HEENT: normocephalic, atraumatic, EOMI, sclerae anicteric Neck: supple, trachea midline Card: RRR on monitor, systolic murmur on auscultation Pulm: breathing comfortably on RA Abd: soft Ext: warm, dry, no edema Neuro: A&Ox3, CN II-XII grossly intact, nonfocal, conversant I/O: No intake/output data recorded. Labs: Recent Results (from the past 72 hour(s)) Pulmonary Function Testing Result Value Ref Range FVC Actual Pre-BD 3.54 L FVC Pre-BD % of Predicted 101 % FVC Predicted 3.52 L FVC Pre-BD Z-Score 0.04 FVC Lower Limits of Normal 2.63 L FEV1 Actual Pre-BD 2.14 L FEV1 Pre-BD % of Predicted 78 % FEV1 Predicted 2.73 L FEV1 Pre-BD Z-Score -1.33 FEV1 Lower Limits of Normal 1.99 L FEV1 / FVC Actual Pre-BD 60 % FEV1/FVC Pre-BD Z-Score -2.08 FEV1 / FVC LLN 64 % [id number] Actual Pre-BD 0.87 L/s [id number] Pre-BD % of Predicted 39 % [id number] Predicted 2.23 L/s [id number] Pre-BD Z-Score -1.88 DLCO Hb Actual Pre-BD 5.82 mL/min/mmHg DLCO Hb Pre-BD % of Predicted 27 % DLCO Hb Pre-BD Z-Score -6.00 DLCO Hb Predicted 21.85 mL/min/mmHg DLCO [facility] ACT PRE-BD 4.61 mL/min/mmHg DLCO [facility] PRE-BD % of PRED 21 % DLCO [facility] PRE-BD Z-SCORE -6.77 % DLCO [facility] Predicted 21.85 mL/min/mmHg DLCO/VA Actual Pre-BD 1.12 mL/min/mmHg/L DLCO/VA Pre-BD % of Predicted 26 % DLCO/VA Pre-BD Z-Score -5.53 DLCO/VA Predicted 4.24 mL/min/mmHg/L Echocardiogram Transthoracic Result Value Ref Range EF 54 POCT Glucose Result Value Ref Range POC Glucose 191 65 - 199 mg/dL UPPER GI ENDOSCOPY Result Value Ref Range UPPER GI ENDOSCOPY [facility] Endoscopy Procedure Date: 10/30/2021 2:40 PM Patient Name: John Duarte Date of : 1955 Age: 66 Order #: [id number] Instrument Name: [id number] Procedure: Upper GI endoscopy Indications: Melena Providers: Raul Rodrigez MD, Carolee Isabel, Julita Burleson RN, Starr Watts, Bedspring Assembler Referring MD: Medicines: Monitored Anesthesia Care Complications: No immediate complications. Procedure: Pre-Anesthesia Assessment: - Prior to the procedure, a History and Physical was performed, and patient medications and allergies were reviewed. The patient is competent. The risks and benefits of the procedure and the sedation options and risks were discussed with the patient. All questions were answered and informed consent was obtained. Patient identification and proposed procedure were verified by the physician in the pre-procedure area. Mental Status Examination: alert and oriented. Airway Examination: normal oropharyngeal airway and neck mobility. CV Examination: normal. Prophylactic Antibiotics: The patient does not require prophylactic antibiotics. Prior Anticoagulants: The patient has taken no anticoagulant or antiplatelet agents. ASA Grade Assessment: III - A patient with severe systemic disease. After reviewing the risks and benefits, the patient was deemed in satisfactory condition to undergo the procedure. The anesthesia plan was to use monitored anesthesia care (MAC). Immediately prior to administration of medications, the patient was re-assessed for adequac y to receive sedatives. The heart rate, respiratory rate, oxygen saturations, blood pressure, adequacy of pulmonary ventilation, and response to care were monitored throughout the procedure. The physical status of the patient was re-assessed after the procedure. The procedure, indications, benefits, risks and alternatives were explained to the patient. Specifically discussed were potential complications including, but not limited to, bleeding, perforation, infection, missing a cancer, and adverse medication reactions. The Endoscope was introduced through the mouth, and advanced to the second part of duodenum The upper GI endoscopy was accomplished without difficulty. The patient tolerated the procedure well. Findings: The esophagus was normal. The stomach was normal. The examined duodenal bulb was normal. However, just at beginning of the C sweep there was an extrinsic narrowing of the duodenum medially and we were unable to pass distally a colonoscope or gastroscope. However, we could visualize erythema and edema beyond the stricture likely consistent with malignant tumor ingrowth. We then sprayed Hemospray to try and control any bleeding from the site. Moderate Sedation: Not applicable - See Anesthesia documentation Impression: - Likely tumor ingrowth in the medial second portion of the duodenum - s/p hemospray application Recommendation: - Admit to medicine - Surgical, thoracic and radiation oncology consultations Procedure Code(s): --- Professional --- 14575, Esophagogastroduodenoscopy, flexible, transoral; diagnostic, including collection of specimen(s) by brushing or washing, when performed (separate procedure) CPT copyright 2020 [employer]. All rights reserved. The codes documented in this report are preliminary and upon electronic intelligence officer review may be revised to meet current compliance requirements. Attending Participation: I was present and participated during the entire procedure, including non-blackwell portions. Raul Rodrigez MD 10/30/2021 3:24:28 PM This report has been signed electronically. Number of Addenda: 0 Note Initiated On: 10/30/2021 2:40 PM POCT Glucose Result Value Ref Range POC Glucose 150 65 - 199 mg/dL Diagnostics: CT Chest w Contrast Result Date: 10/21/2021 EXAMINATION: CT CHEST W CONTRAST CLINICAL HISTORY: pancreatic head cancer staging TECHNIQUE: 3.75 mmthick axial contiguous sections were obtained through the chest via helical acquisition after the intravenous administration of contrast, Administered 50.0 ml of OMNIPAQUE 240.00 mg/ml. Thin-section rec onstructions as well as coronal and sagittal reformatted images were generated. COMPARISON: CT abdomen and pelvis 09/30/2021 FINDINGS: Pulmonary parenchyma: Sub- 4 mm nodule in the right upper lobe (axial series 5, image 146). 5 mm nodule in the right middle lobe. Round 5 mm solid nodule in the posterior right lower lobe, present on prior CT from 09/30/2021, excluded from [id number] 06/07/2021 CT. 4 mm nodule along the right horizontal fissure (axial series 5, image 304), unchanged from most recent CT. 4 mm nodule in the peripheral left lower lobe (axial series 5, image 329). Emphysematous changes most evident at the apices and bases. Right middle and left lower lobe scarring. Airways: Central and s egmental airways are patent Pleura: Thickening of the right horizontal fissure. No pleural fluid Lymph nodes: No pathologically enlarged lymph nodes. Heart, pericardium, and great vessels: Right chest port with tip terminating at the mid SVC. Normal cardiac size no pericardial fluid. Other mediastinalstructures: No significant findings. Lower neck: No significant findings. Upper abdomen: Intrahepatic biliary dilatation, decreased from prior. Interval placement of a CBD stent. Persistent pancreatic ductal dilatation. There is perihepatic ascites, and new as compared to prior. Body wall soft tissues: No significant findings. Skeletal structures: No acute fracture or destructive osseous lesion. Multilevel degenerative changes of the spine.. 1. Bilateral sub-6 mm solid nodules. These are indeterminant; while small nodules noted this size are statistically of a post infectious or inflammatory process, in the setting of a primary malignancy,metastatic disease cannot be excluded. If there are CT examinations available prior to 06/07/2021, comparison could be made to evaluate for stability. 2. No lymphadenopathy. 3. New partially visualized perihepatic ascites. Assessment: John Duarte is a 66 y.o. male with PMHx as above for whom Thoracic Surgery is consulted for surgical biopsy of patient's pulmonary nodules - concerning for metastatic disease - in the setting of otherwise resectable pancreatic cancer. His nodules are very small and deep enough in the lung parenchyma to make VATS wedge resection and percutaneous biopsy challenging. Furthermore, his low DLCO from his PFTs (27%), indicates that he may not tolerate single-lung ventilation for VATS. There is a 4.7 mmnodule in the RLL which may be amenable to percutaneous biopsy with IR. We have consulted IR and placed the order for tomorrow. Case discussed with primary team. All plans formulated in discussion with and directed by attending thoracic surgeon Dr. Thapa. Kartik Olivas MD 10/30/2021 Thoracic Surgery Service Pager [phone] Associated attestation - Zaheer Thapa MD - 10/30/2021 8:10 PM EDT I have seen the patient and reviewed the resident's above note and I agree with the details as written. I have personally reviewed the relevant imaging. The assessment and plan were formulated in discussion with me and I agree with them as documented. Seen in clinic earlier this week by our PA and discussed with Dr. Luther. Initial plan was for TTE and PFTs. His DLCO is in the 20s, which is concerning for ability to tolerate single lung ventilation for potential VATS biopsy. There is a peripheral 5mm RLL nodule that may be amenable to CT guidedpercutaneous biopsy. Will discuss this with IR given impact on patient's treatment course. Will continue to follow. Zaheer Thapa MD 10/30/2021 Consult Note - Carolee Isabel MD - 10/30/2021 3:21 PM EDT GASTROENTEROLOGY & HEPATOLOGY CONSULTATION Initial Consult Note Requesting Provider: Raul Rodrigez MD REASON FOR CONSULTATION GIB HISTORY OF PRESENT ILLNESS John Duarte is a 66 y.o.M PMHx pancreatic adenocarcinoma who presented for EGD today for melena. Patient was diagnosed EUS-guided FNB of pancreatic head mass on 10/07/21 which was c/w adenocarcinoma. He underwent diagnostic laparoscopy on 10/17/21 which did not show sign of metastatic disease; further staging notable for lung nodule on CT Chest awaiting further evaluation, but would otherwise be amenable for curative treatment. He is currently scheduled for chemotherapy tomorrow but this week wasnoted to have a Hb drop to low 7s per chart from 8.7 on 10/21. He then noted having new dark black stool following by dark red stool earlier this morning. He was recommended to go to local ED, where hereportedly received 1u pRBC, and was also scheduled to EGD today. Scope revealed friable mass extending into duodenum with inability to pass gastroscopy beyond site. This was mildly oozing and thought to be suspected mass and source of bleeding. Hemospray was appliedfor temporizing bleed and admission request placed to expedite workup of lung nodules to potentiallymove up time frame of Whipple. In recovery, he remains HDS. ROS: 10 systems reviewed and positive for those in HPI, otherwise negative PAST MEDICAL/SURGICAL HISTORY: No past medical history on file. MEDICATIONS ??? lactated Ringers 400 mL/hr (10/30/21 1514) ALLERGIES No Known Allergies SOCIAL HISTORY Social History Socioeconomic History ??? Marital status: Spouse name: Not on file ??? Number of children: Not on file ??? Years of education: Not on file ??? Highest education level: Not on file Occupational History ??? Not on file Tobacco Use ??? Smoking status: Current Every Day Smoker Packs/day: 0.50 Types: Cigarettes ??? Smokeless tobacco: Never Used ??? Tobacco comment: knows he will have to quit Vaping Use ??? Vaping Use: Never used Substance and Sexual Activity ??? Alcohol use: Yes Comment: about 3 times a year ??? Drug use: Never ??? Sexual activity: Not on file Other Topics Concern ??? Not on file Social History Narrative ??? Not on file Social Determinants of Health Financial Resource Strain: Low Risk ??? Difficulty of Paying Living Expenses: Not very hard Food Insecurity: Unknown ??? Worried About Running Out of Food in the Last Year: Never true ??? Ran Out of Food in the Last Year: Not on file Transportation Needs: Unknown ??? Lack of Transportation (Medical): No ??? Lack of Transportation (Non-Medical): Not on file Physical Activity: Not on file Housing Stability: Low Risk ??? Unable to Pay for Housing in the Last Year: No ??? Number of Places Lived in the Last Year: 1 ??? Unstable Housing in the Last Year: No FAMILY HISTORY Family History Problem Relation Age of Onset ??? Cancer Father gastrointestinal ??? Colorectal Cancer Maternal Aunt Vitals: 10/30/21 1350 BP: 153/56 Pulse: 57 Resp: 19 Temp: 36.5 ??C (97.7 ??F) TempSrc: Tympanic SpO2: 100% Weight: 49.9 kg (110 lb) Height: 165.1 cm (5' 5) PHYSICAL EXAM GENERAL: No acute distress, alert and oriented HEENT: AT/NC, sclerae anicteric, moist mucous membranes CHEST: CTA CARDIAC: RRR, normal S1/S2, no appreciable murmurs ABDOMEN: Soft, normoactive bowel sounds, non-tender, non-distended EXT: Warm, no edema NEURO: Grossly intact, moves all extremities, no asterixis SKIN: No jaundice LABS: No results found for: NA, K, CL, CO2, BUN, CREATININE, GLUCOSE CBC No results found for: WBC, HGB, HCT, PLATELET LFT's No results found for: ALKPHOS, AST, ALBUMIN, BILIDIR, BILITOT, ALT, PROT IMAGING: Reviewed in [facility] 10/21/2021 CT Chest ?? IMPRESSION ?? 1. Bilateral sub-6 mm solid nodules. These are indeterminant; while small nodules noted this size are statistically of a post infectious or inflammatory process, in the setting of a primary malignancy, metastatic disease cannot be excluded. If there are CT examinations available prior to 06/07/2021, comparison could be made to evaluate for stability. 2. No lymphadenopathy. 3. New partially visualized perihepatic ascites. ENDOSCOPY: Reviewed in eD 10/30/2021 EGD Impression: ?- Likely tumor ingrowth in the ?medial second portion of the ?duodenum - s/p hemospray application Recommendation: ?- Admit to medicine ?- Surgical, thoracic and radiation ?oncology consultations IMPRESSION: John Duarte is a 66 y.o.M PMHx pancreatic adenocarcinoma who presented for EGD today for melena likely 2/2 mass. Unable to visualize D2 due to tumor ingrowth but given oozing and friable tissue seen on C sweep, suspect this is likely source of his melena. Hemospray temporizing agent but should monitor closely forongoing melena/H&H drop. If he does have signs of persistent bleeding, may consider Rad Onc consult for XRT to address tumor bleed. In the mean time, recommend expediting workup of lung nodule to address if patient is candidate for Whipple, which if is the case should also be looked into for earlier timing. GI will follow along. Inthe mean time would recommend consultation of these services to aid in management plan. RECOMMENDATIONS: - Thoracic consult re: lung nodule wedge bx - Surg Onc consult re: Whipple timing - Heme-Onc consult - Monitor for bleeding, can consider Rad Onc consult - two large bore IVs - Active T&S - Monitor Hgb q12h or more frequently based assessment of bleeding. - Transfuse for Hgb <7 if no ongoing signs of bleeding - Please page GI with questions The plan as outlined above was discussed with Dr. Raghav Isabel M.D. Fellow in Gastroenterology and Hepatology Pager #[phone] 10/30/2021 documented in this encounter Plan of Treatment Upcoming Encounters Date Type Specialty Care Team Description 11/07/2021 Office Visit Hematology and Oncology Eric Streeter MD [facility] [address] [place], [place] [address] (Wo rk) 11/07/2021 Infusion Hematology and Oncology 11/07/2021 Office Visit Hematology and Oncology Irena Hinojosa RD [facility] [place], [place] [address] (Wo rk) 11/21/2021 Office Visit Hematology and Oncology Eric Streeter MD [facility] [address] [place], [place] [address] (Wo rk) 11/21/2021 Infusion Hematology and Oncology 12/05/2021 Office Visit Hematology and Oncology Eric Streeter MD [facility] [place], [place] [address] (Wo rk) 12/05/2021 Infusion Hematology and Oncology 12/19/2021 Office Visit Hematology and Oncology Eric Streeter MD [facility] [place], [place] [address] (Wo rk) 12/19/2021 Infusion Hematology and Oncology documented as of this encounter Procedures Procedure Name Priority Date/Time Associated Comments Diagnosis POCT GLUCOSE Routine 11/03/2021 11:25 Results for this AM EDT procedure are i n the results section. XR CHEST ONE VIEW Routine 11/03/2021 10:14 Result s for this AM EDT procedure are i n the results section. XR CHEST ONE VIEW Routine 11/03/2021 9:20 AM Resu lts for this EDT procedure are i n the results section. CT GUIDED BIOPSY LUNG Routine 11/03/2021 9:12 AM Results for this EDT procedure are i n the results section. SURGICAL PATHOLOGY Routine 11/03/2021 8:30 AM Res ults for this REPORT EDT procedure are i n the results section. SPECIMEN TO PATHOLOGY Routine 11/03/2021 7:48 AM Results for this EDT procedure are i n the results section. POCT GLUCOSE Routine 11/03/2021 7:36 AM Results f or this EDT procedure are i n the results section. HEMOGRAM Routine 11/03/2021 4:15 AM Results f or this EDT procedure are i n the results section. DIFFERENTIAL, AUTOMATED Routine 11/03/2021 4:15 AM Results for this EDT procedure are i n the results section. HC PARTIAL Routine 11/03/2021 4:15 AM Results f or this THROMBOPLASTIN TIME EDT procedur e are in the results section. HC PROTHROMBIN TIME Routine 11/03/2021 4:15 AM Re sults for this EDT procedure are i n the results section. HC CBC,PLT & AUTO DIFF Routine 11/03/2021 4:15 AM EDT HC PHOSPHORUS, SERUM Routine 11/03/2021 4:15 AM R esults for this EDT procedure are i n the results section. HC MAGNESIUM, SERUM Routine 11/03/2021 4:15 AM Re sults for this EDT procedure are i n the results section. HEPATIC FUNCTION PANEL Routine 11/03/2021 4:15 AM Results for this EDT procedure are i n the results section. BASIC METABOLIC PANEL Routine 11/03/2021 4:15 AM Results for this (NON-FASTING) EDT procedure are in the results section. POCT GLUCOSE Routine 11/02/2021 7:52 PM Results f or this EDT procedure are i n the results section. POCT GLUCOSE Routine 11/02/2021 4:40 PM Results f or this EDT procedure are i n the results section. POCT GLUCOSE Routine 11/02/2021 12:04 Results for this PM EDT procedure are i n the results section. POCT GLUCOSE Routine 11/02/2021 8:27 AM Results f or this EDT procedure are i n the results section. HEMOGRAM Routine 11/02/2021 2:13 AM Results f or this EDT procedure are i n the results section. DIFFERENTIAL, AUTOMATED Routine 11/02/2021 2:13 AM Results for this EDT procedure are i n the results section. HC PARTIAL Routine 11/02/2021 2:13 AM Results f or this THROMBOPLASTIN TIME EDT procedur e are in the results section. HC PROTHROMBIN TIME Routine 11/02/2021 2:13 AM Re sults for this EDT procedure are i n the results section. HC CBC,PLT & AUTO DIFF Routine 11/02/2021 2:13 AM EDT HC PHOSPHORUS, SERUM Routine 11/02/2021 2:13 AM R esults for this EDT procedure are i n the results section. HC MAGNESIUM, SERUM Routine 11/02/2021 2:13 AM Re sults for this EDT procedure are i n the results section. HEPATIC FUNCTION PANEL Routine 11/02/2021 2:13 AM Results for this EDT procedure are i n the results section. BASIC METABOLIC PANEL Routine 11/02/2021 2:13 AM Results for this (NON-FASTING) EDT procedure are in the results section. POCT GLUCOSE Routine 11/01/2021 9:08 PM Results f or this EDT procedure are i n the results section. POCT GLUCOSE Routine 11/01/2021 5:05 PM Results f or this EDT procedure are i n the results section. HC VENIPUNCTURE Routine 11/01/2021 1:00 PM Result s for this EDT procedure are i n the results section. POCT GLUCOSE Routine 11/01/2021 11:05 Results for this AM EDT procedure are i n the results section. POCT GLUCOSE Routine 11/01/2021 7:30 AM Results f or this EDT procedure are i n the results section. HEMOGRAM Routine 11/01/2021 2:38 AM Results f or this EDT procedure are i n the results section. DIFFERENTIAL, AUTOMATED Routine 11/01/2021 2:38 AM Results for this EDT procedure are i n the results section. HC PARTIAL Routine 11/01/2021 2:38 AM Results f or this THROMBOPLASTIN TIME EDT procedur e are in the results section. HC PROTHROMBIN TIME Routine 11/01/2021 2:38 AM Re sults for this EDT procedure are i n the results section. HC VENIPUNCTURE Routine 11/01/2021 2:38 AM EDT HC PHOSPHORUS, SERUM Routine 11/01/2021 2:38 AM R esults for this EDT procedure are i n the results section. HC MAGNESIUM, SERUM Routine 11/01/2021 2:38 AM Re sults for this EDT procedure are i n the results section. HEPATIC FUNCTION PANEL Routine 11/01/2021 2:38 AM Results for this EDT procedure are i n the results section. BASIC METABOLIC PANEL Routine 11/01/2021 2:38 AM Results for this (NON-FASTING) EDT procedure are in the results section. POCT GLUCOSE Routine 10/31/2021 8:14 PM Results f or this EDT procedure are i n the results section. POCT GLUCOSE Routine 10/31/2021 5:15 PM Results f or this EDT procedure are i n the results section. POCT GLUCOSE Routine 10/31/2021 3:12 PM Results f or this EDT procedure are i n the results section. HC VENIPUNCTURE Routine 10/31/2021 1:55 PM Result s for this EDT procedure are i n the results section. POCT GLUCOSE Routine 10/31/2021 11:09 Results for this AM EDT procedure are i n the results section. POCT GLUCOSE Routine 10/31/2021 7:31 AM Results f or this EDT procedure are i n the results section. POCT GLUCOSE Routine 10/31/2021 6:36 AM Results f or this EDT procedure are i n the results section. TYPE AND SCREEN Routine 10/31/2021 4:13 AM Result s for this VALIDITY EDT procedure are i n the results section. HEMOGRAM Routine 10/31/2021 4:13 AM Results f or this EDT procedure are i n the results section. DIFFERENTIAL, AUTOMATED Routine 10/31/2021 4:13 AM Results for this EDT procedure are i n the results section. ABO/RH TYPING Routine 10/31/2021 4:13 AM Results for this EDT procedure are i n the results section. HC PARTIAL Routine 10/31/2021 4:13 AM Results f or this THROMBOPLASTIN TIME EDT procedur e are in the results section. HC PROTHROMBIN TIME Routine 10/31/2021 4:13 AM Re sults for this EDT procedure are i n the results section. HC CBC,PLT & AUTO DIFF Routine 10/31/2021 4:13 AM EDT ANTIBODY SCREEN Routine 10/31/2021 4:13 AM Result s for this EDT procedure are i n the results section. HC ANTIBODY Routine 10/31/2021 4:13 AM DETECTION,CAPTURE-R EDT HC PHOSPHORUS, SERUM Routine 10/31/2021 4:13 AM R esults for this EDT procedure are i n the results section. HC MAGNESIUM, SERUM Routine 10/31/2021 4:13 AM Re sults for this EDT procedure are i n the results section. HEPATIC FUNCTION PANEL Routine 10/31/2021 4:13 AM Results for this EDT procedure are i n the results section. BASIC METABOLIC PANEL Routine 10/31/2021 4:13 AM Results for this (NON-FASTING) EDT procedure are in the results section. POCT GLUCOSE Routine 10/31/2021 3:18 AM Results f or this EDT procedure are i n the results section. POCT GLUCOSE Routine 10/31/2021 12:09 Results for this AM EDT procedure are i n the results section. POCT GLUCOSE Routine 10/30/2021 11:09 Results for this PM EDT procedure are i n the results section. POCT GLUCOSE Routine 10/30/2021 9:10 PM Results f or this EDT procedure are i n the results section. POCT GLUCOSE Routine 10/30/2021 7:03 PM Results f or this EDT procedure are i n the results section. EKG 12-LEAD Routine 10/30/2021 5:50 PM Malignant neoplasm Res ults for this EDT of head of procedure are i n pancreas the results section. POCT GLUCOSE Routine 10/30/2021 4:17 PM Results f or this EDT procedure are i n the results section. EGD, W CONTROL OF 10/30/2021 2:45 PM Anemia due to BLEEDING, ANY METHOD EDT chronic blood loss UPPER GI ENDOSCOPY Routine 10/30/2021 2:40 PM Res ults for this EDT procedure are i n the results section. POCT GLUCOSE Routine 10/30/2021 2:04 PM Results f or this EDT procedure are i n the results section. documented in this encounter Results POCT Glucose (11/03/2021 11:25 AM EDT) P athologist Signature POC Glucose 167 65 - 199 [facility] mg/dL [facility] Comment: Supplemental ranges: <140 mg/dL before meals <180 mg/dL all other times of the day Specimen Anatomical Collection Method Collection Time Receive d Time (Source) Location / / Volume Laterality Blood 11/03/2021 11:25 11/03/2021 AM EDT 11:25 AM EDT Ava Victor MD POINT OF CARE TEST ORDERABLE S Performing Organization Address City/State/ZIP [place] [address] XR Chest One View (11/03/2021 10:14 AM EDT) Anatomical Region Laterality Modality Chest N/A Digital [...] who have questions please contact the health resident care technician that requested your imaging first. ? Narrative [...] ho have questions please contact the health resident care technician that requested your imaging first. Ava Victor MD IMG DX ORDERABLES XR Chest One View (11/03/2021 9:20 AM EDT) Anatomical Region Laterality Modality Chest N/A Digital Radiography Specimen (Source) Anatomical Location Collection Method / Collectio n Time Received Time / Laterality Volume Impressions 11/03/2021 9:27 AM EDT No pneumothorax. Thank you for letting us participate in the care of this patient. ??If you are a health care provider and have any questi ons regarding this report, please contact the number below. ??For patients who have questions please contact the health resident care technician that requested your imaging first. ? Narrative 11/03/2021 9:27 AM EDT EXAMINATION: XR CHEST ONE VIEW CLINICAL HISTORY: 66-year-old male statu s post right lung biopsy. ??Trace pneumothorax on final CT images, stable on delayed imaging. TECHNIQUE: A single AP portable 75 degre e upright radiograph of the chest was obtained. COMPARISON: Correlation is made to CT gu ided biopsy dated November 03, 2021. Correlation is made to CT of the chest d ated October 21, 2021. ??Comparison is made to chest radiograph dated October 17, 2021 FINDINGS: There is a right subclavian chest port w ith catheter tip in the mid superior vena cava. The trace pneumothorax is seen on the pr ior CT guided biopsy is not appreciated on chest radiography. ??There are trace bilateral pleural effusions. ??There are associated bibasilar atelectatic changes . ??There is no new focal pulmonary opacity. The trachea is midline. ??Hilar structur es The cardia mediastinal contours are unch anged. ??Cardiac size is mildly enlarged, unchanged. ??There is atherosclerotic ca lcification of the aortic arch. Visualized structures within the superio r abdomen inferior neck are within normal limits. Osseous structures are unchanged. Procedure Note Jaron Stallings DO - 11/03/2021Formatti ng of this note might be different from the original. EXAMINATION: XR CHEST ONE VIEW CLINICAL HISTORY: 66-year-old male statu s post right lung biopsy. Trace pneumothorax on final CT images, stable on delayed imaging. TECHNIQUE: A single AP portable 75 degre e upright radiograph of the chest was obtained. COMPARISON: Correlation is made to CT gu ided biopsy dated November 03, 2021. Correlation is made to CT of the chest d ated October 21, 2021. Comparison is made to chest radiograph dated October 17, 2021 FINDINGS: There is a right subclavian chest port w ith catheter tip in the mid superior vena cava. The trace pneumothorax is seen on the pr ior CT guided biopsy is not appreciated on chest radiography. There are trace bi lateral pleural effusions. There are associated bibasilar atelectatic changes . There is no new focal pulmonary opacity. The trachea is midline. Hilar structures The cardia mediastinal contours are unch anged. Cardiac size is mildly enlarged, unchanged. There is atherosclerotic calc ification of the aortic arch. Visualized structures within the superio r abdomen inferior neck are within normal limits. Osseous structures are unchanged. IMPRESSION No pneumothorax. Thank you for letting us participate in the care of this patient. If you are a health care provider and have any questi ons regarding this report, please contact the number below. For patients w ho have questions please contact the health resident care technician that requested your imaging first. Ava Victor [...] ??Discharge from IR when criteria are met Check Pilot(s): Resident/Fellow: Tammy Gaviria Attending: Candis Stallings Procedure/Teaching Attestation: I was pr esent for the procedure. Moderate Sedation Attestation: I was pre sent during the intra-service time as documented by IR nurse. Preliminary report signed by: Sergo Tripp ran at 11/03/2021 9:16 AM I have [...] who have questions please contact the health resident care technician that requested your imaging first. ? Narrative 11/03/2021 9:25 AM EDT RADIOLOGY PROCEDURE [...] Prior to beginning the procedure, a annika shayan time out Moment of Truth was performed. [...] CT showed tin y pneumothorax. Procedure Note Jaron Stallings, DO - 11/03/2021Formatti ng of this note [...] from IR when criteria are me t Check Pilot(s): Resident/Fellow: Tammy Gaviria Attending: Candis Stallings Procedure/Teaching [...] ho have questions please contact the health resident care technician that requested your imaging first. Sloane Kuo MD IMG CT ORDERABLES Surgical Pathology Report (11/03/2021 8:30 AM EDT) Component Value Ref Test Analysis Performed At [facility] Range Method Time Signature Surgical [id number] ? Location: 1WST; 0103; [facility] Report The signing pathologist has (i) examined the relevant preparation(s) for the [facility]IAL specimen(s) and (ii) rendered or confirmed the diagnosis(es) . HOSPITAL LABORATORY . ?Surgic al Pathology DIAGNOSIS Right lung, biopsy: Benign lung parenchyma with patchy chronic infla mmation and reactive changes, negative for malignancy. (see Discussion) Electronically signed by: ?Haylee Sauceda MD Verified: ??11/06/2021 11:19 ??Pathologist Performed at: ??-[facility] Dept. of Pathology, [place], [place] DISCUSSION Step levels were examined. SPECIMEN(S) [...] Organization Address City/State/Z[place] [address] [facility] [address] Specimen to Pathology (11/03/2021 7:48 AM EDT) Specimen Anatomical Collection Method Collection Time Receive d Time (Source) Location / / Volume Laterality AP Specimen 11/03/2021 7:48 AM 7:48 EDT AM EDT Narrative [facility] - 11/03/2021 7:48 AM EDT Specimen requisition ordered. ??Separate Pathology report to follow Ava Victor MD PATHOLOGY/CYTOLOGY ORDERABLE S Performing Organization Address City/State/ZIP [place] [address] [facility] [address] POCT Glucose (11/03/2021 7:36 AM EDT) athologist Signature POC Glucose 183 65 - 199 [facility] mg/dL [facility] Comment: Supplemental ranges: <140 mg/dL before meals <180 mg/dL all other times of the day Specimen Anatomical Collection Method Collection Time Receive d Time (Source) Location / / Volume Laterality Blood 11/03/2021 7:36 AM 7:36 EDT AM EDT Ava Victor MD POINT OF CARE TEST ORDERABLE S Performing Organization Address City/State/ZIP Code Phon e Number [address] Differential, Automated (11/03/2021 4:15 AM EDT) athologist [facility] Neutrophils % 69.9 % [facility] Neutr Abs (ANC) 5.87 1.70 - [facility] 6.10 [facility] x10(3)/[facility] LABORATORY Lymphocytes % 22.3 % [facility] Lymphocytes Abs 1.9 0.9 - 3.2 [facility] x10(3)/[facility] LABORATORY Monocytes % 6.5 % [facility] Monocyte Abs 0.6 0.3 - 0.9 [facility] x10(3)/[facility] LABORATORY Eosinophils % 0.6 % [facility] Eosinophils Abs 0.0 0.0 - 0.4 [facility] x10(3)/[facility] LABORATORY Basophils % 0.2 % [facility] Basophils Abs 0.0 0.0 - 0.1 [facility] x10(3)/[facility] LABORATORY Immature Gran % 0.50 % [facility] Comment: Immature granulocytes(IG's)percentage an d absolute count will include metamyelocytes, myelocytes, and promyelo cytes. Blood smears from CBCs yielding IG's will be scanned manually for concor dance. If this scan disagrees with the automated IG or if promyelocytes are not ed, a manual differential will be performed. Neda Gran Abs 0.04 0.00 - 0.04 x10(3)/[facility] LABORATORY Specimen Anatomical Collection Method Collection Time Receive d Time (Source) Location / / Volume Laterality Blood 11/03/2021 4:15 AM 4:44 EDT AM EDT Resulting Agency Comment Spec In Lab Melo Ambrose MD HEMATOLOGY ORDERABLES Performing Organization Address City/State/ZIP [place] [address] (ABNORMAL) Hemogram (11/03/2021 4:15 AM EDT) [facility] gist Method Time Signature WBC 8.4 4.0 - 9.5 [facility] x10(3)/[facility] LABORATORY RBC 2.30 (L) 4.58 - [facility] 5.54 [facility] x10(6)/[facility] LABORATORY Hemoglobin 8.5 (L) 13.7 - [facility] 16.5 g/dL [facility] Hematocrit 25.7 (L) 40.5 - [facility] 48.5 % [facility] MCV 111.7 (H) 82.9 - [facility] 93.1 [facility] LABORATORY MCH 37.0 (H) 27.5 - [facility] 32[facility]1 pg [facility] MCHC 33.1 32.0 - [facility] 35.7 g/dL [facility] Platelets 161 145 - 357 [facility] x10(3)/[facility] LABORATORY RDWSD 68.1 (H) 36.0 - [facility] 45.0 [facility] LABORATORY RDWCV 16.6 (H) 11.4 - [facility] 13.8 % [facility] MPV 10.5 7.6 - 12.9 [facility] LABORATORY nRBC % Auto 0.0 % [facility] nRBC Abs Auto 0.000 0.000 - [facility] 0.000 [facility] x10(3)/[facility] LABORATORY Specimen Anatomical Collection Method Collection Time Receive d Time (Source) Location / / Volume Laterality Blood 11/03/2021 4:15 AM 2 4:44 EDT AM EDT Resulting Agency Comment Spec In Lab Melo Ambrose MD HEMATOLOGY ORDERABLES Performing Organization Address City/[facility] [place] [address] APTT (11/03/2021 4:15 AM EDT) P athologist Signature PTT 29 25 - 37 sec [facility] Comment: The PTT is NOT appropriate [...] Resulting Agency Comment Spec In Lab Raul Rodrigez MD HEMATOLOGY ORDERABLES Performing Organization Address [facility] [place] [address] (ABNORMAL) Prothrombin Time (11/03/2021 4:15 AM EDT) P athologist Signature PT 13.8 (H) 9.4 - 12.5 [facility] LABORATORY INR 1.2 [facility] Comment: An INR <2.0 indicates adequate [...] Resulting Agency Comment Spec In Lab Raul Rodrigez MD HEMATOLOGY ORDERABLES Performing Organization Address City/[facility]/ZIP [facility] [place] [address] (ABNORMAL) Hepatic Function Panel (11/03/2021 4:15 AM EDT) athologist Signature Total Protein 5.1 (L) 6.1 - 8.0 [facility] g/dL [facility] Albumin 2.4 (L) 3.2 - 5.2 [facility] g/dL [facility] AST 87 (H) 0 - 39 [facility] unit/L [facility] ALT 42 0 - 55 [facility] unit/L [facility] Alk Phos 691 (H) 40 - 130 [facility] unit/L [facility] Total 2.2 (H) 0.2 - 1.3 [facility] Bilirubin mg/dL [facility] Bili, Direct 1.6 (H) 0.0 - 0.3 [facility] mg/dL [facility] Specimen Anatomical Collection Method Collection Time Receive d Time (Source) Location / / Volume Laterality Blood 11/03/2021 4:15 AM 2 4:44 EDT AM EDT Resulting Agency Comment Spec In Lab Raul Rodrigez MD CHEMISTRY ORDERABLES Performing Organization Address City/State/ZIP Code Phon e Number [address] Phosphorus (11/03/2021 4:15 AM EDT) athologist Signature Phosphorus 3.2 2.5 - 4.5 [facility] mg/dL [facility] Specimen Anatomical Collection Method Collection Time Receive d Time (Source) Location / / Volume Laterality Blood 11/03/2021 4:15 AM 2 4:44 EDT AM EDT Resulting Agency Comment Spec In Lab Raul Rodrigez MD CHEMISTRY ORDERABLES Performing Organization Address City/State/ZIP Code Phon e Number [address] (ABNORMAL) Magnesium (11/03/2021 4:15 AM EDT) athologist Signature Magnesium 0.68 (L) 0.69 - 1.07 [facility] mmol/L [facility] Specimen Anatomical Collection Method Collection Time Receive d Time (Source) Location / / Volume Laterality Blood 11/03/2021 4:15 AM 2 4:44 EDT AM EDT Resulting Agency Comment Spec In Lab Raul Rodrigez MD CHEMISTRY ORDERABLES Performing Organization Address City/State/ZIP [place] [address] (ABNORMAL) Basic Metabolic Panel (non-fasting) (11/03/2021 4:15 AM EDT) athologist Signature Glucose Lvl 134 65 - 199 [facility] mg/dL [facility] Comment: Diabetes: >=200 mg/dL plus symp toms BUN 10 10 - 20 mg/dL [facility]ORY Creatinine 0.79 (L) 0.80 - 1.50 mg/dL [facility] LABORATORY Sodium 136 135 - 145 mmol/L [facility] Potassium 3.8 3.5 - 5.0 mmol/L [facility] Comment: Please note: ??Patients with WBC >100,00 0 may have falsely elevated Potassium levels. ??For accurate Potassium quantif ication in these patients send serum separator tube (gold top) for subsequent determinations. ??Contact the Clinical Chemistry Laboratory if there are any qu estions. Chloride 103 98 - 107 mmol/L [facility] CO2 23 22 - 31 mmol/L [facility] Anion Gap 10 5 - 15 mmol/L [facility]ORY Calcium 7.8 (L) 8.5 - 10.5 mg/dL [facility] Estimated GFR 97 >=60 mL/min/1.73 m?? [facility] Comment: This patient's estimated GFR was [...] Resulting Agency Comment Spec In Lab Raul Rodrigez MD CHEMISTRY ORDERABLES Performing Organization Address City/State/ZIP Code Phon e Number [address] POCT Glucose (11/02/2021 7:52 PM EDT) athologist Signature POC Glucose 103 65 - 199 [facility] mg/dL [facility] Comment: Supplemental ranges: <140 mg/dL before meals <180 mg/dL all other times of the day Specimen Anatomical Collection Method Collection Time Receive d Time (Source) Location / / Volume Laterality Blood 11/02/2021 7:52 PM 2 7:52 EDT PM EDT Ava Victor MD POINT OF CARE TEST ORDERABLE S Performing Organization Address City/[facility]/ZIP Code Phon e Number [address] POCT Glucose (11/02/2021 4:40 PM EDT) athologist Signature POC Glucose 114 65 - 199 [facility] mg/dL [facility] Comment: Supplemental ranges: <140 mg/dL before meals <180 mg/dL all other times of the day Specimen Anatomical Collection Method Collection Time Receive d Time (Source) Location / / Volume Laterality Blood 11/02/2021 4:40 PM 2 4:40 EDT PM EDT Ava Victor MD POINT OF CARE TEST ORDERABLE S Performing Organization Address City/[facility]/ZIP Code Phon e Number [address] POCT Glucose (11/02/2021 12:04 PM EDT) athologist Signature POC Glucose 92 65 - 199 [facility] mg/dL [facility] Comment: Supplemental ranges: <140 mg/dL before meals <180 mg/dL all other times of the day Specimen Anatomical Collection Method Collection Time Receive d Time (Source) Location / / Volume Laterality Blood 11/02/2021 12:04 11/02/2021 PM EDT 12:04 PM EDT Ava Victor MD POINT OF CARE TEST ORDERABLE S Performing Organization Address City/State/ZIP Code Phon e Number [address] (ABNORMAL) POCT Glucose (11/02/2021 8:27 AM EDT) athologist Signature POC Glucose 218 (H) 65 - 199 [facility] mg/dL [facility] Comment: Supplemental ranges: <140 mg/dL before meals <180 mg/dL all other times of the day Specimen Anatomical Collection Method Collection Time Receive d Time (Source) Location / / Volume Laterality Blood 11/02/2021 8:27 AM 8:27 EDT AM EDT Ava Victor MD POINT OF CARE TEST ORDERABLE S Performing Organization Address City/[facility]/ZIP Code Phon e Number [address] Differential, Automated (11/02/2021 2:13 AM EDT) athologist Signature Neutrophils % 62.8 % [facility]ORY Neutr Abs (ANC) 4.65 1.70 - [facility] 6.10 [facility] x10(3)/[facility] LABORATORY Lymphocytes % 29.4 % [facility]ORY Lymphocytes Abs 2.2 0.9 - 3.2 [facility] x10(3)/[facility] LABORATORY Monocytes % 6.3 % [facility]ORATORY Monocyte Abs 0.5 0.3 - 0.9 [facility] x10(3)/[facility] LABORATORY Eosinophils % 0.8 % [facility]ORY Eosinophils Abs 0.1 0.0 - 0.4 [facility] x10(3)/[facility] LABORATORY Basophils % 0.3 % [facility]ORY Basophils Abs 0.0 0.0 - 0.1 [facility] x10(3)/[facility] LABORATORY Immature Gran % 0.40 % [facility] Comment: Immature granulocytes(IG's)percentage an d absolute count will include metamyelocytes, myelocytes, and promyelo cytes. Blood smears from CBCs yielding IG's will be scanned manually for concor dance. If this scan disagrees with the automated IG or if promyelocytes are not ed, a manual differential will be performed. Neda Gran Abs 0.03 0.00 - 0.04 x10(3)/[facility] LABORATORY Specimen Anatomical Collection Method Collection Time Receive d Time (Source) Location / / Volume Laterality Blood 11/02/2021 2:13 AM 2:17 EDT AM EDT Resulting Agency Comment Spec In Lab Melo Ambrose MD HEMATOLOGY ORDERABLES Performing Organization Address City/State/ZIP Code Phon e Number [place] [id number] LAB[address] (ABNORMAL) Hemogram (11/02/2021 2:13 AM EDT) [facility] gist Method Time Signature WBC 7.4 4.0 - 9.5 [facility] x10(3)/[facility] LABORATORY RBC 2.50 (L) 4.58 - [facility] 5.54 [facility] x10(6)/[facility] LABORATORY Hemoglobin 9.3 (L) 13.7 - [facility] 16.5 g/dL [facility] Hematocrit 27.5 (L) 40.5 - [facility] 48.5 % [facility] MCV 110.0 (H) 82.9 - [facility] 93.1 [facility] LABORATORY MCH 37.2 (H) 27.5 - [facility] 32.1 pg [facility] MCHC 33.8 32.0 - [facility] 35.7 g/dL [facility] Platelets 170 145 - 357 [facility] x10(3)/[facility] LABORATORY RDWSD 70.0 (H) 36.0 - [facility] 45.0 [facility] LABORATORY RDWCV 17.2 (H) 11.4 - [facility] CENTER 13.8 % [facility] LABORATORY MPV 10.1 7.6 - 12.9 [facility] LABORATORY nRBC % Auto 0.0 % [facility] LABORATORY nRBC Abs Auto 0.000 0.000 - K[place]ALJ[place] RACIEL 0.000 [facility] x10(3)/[facility] LABORATORY Specimen Anatomical Collection Method Collection Time Receive d Time (Source) Location / / Volume Laterality Blood 11/02/2021 2:13 AM 2 2:17 EDT AM EDT Resulting Agency Comment Spec In Lab Melo Ambrose MD HEMATOLOGY ORDERABLES Performing Organization Address City/State/ZIP Code Phon e Number [address] APTT (11/02/2021 2:13 AM EDT) P athologist Signature PTT 28 25 - 37 sec [facility] LABORATORY Comment: The PTT is NOT appropriate for heparin m onitoring. Use the Anti-Xa level for heparin monitoring (HEP UFH) or LMWH mon itoring (HEP LMW). A PTT less than 37 seconds generally indicates adequate hem ostasis. Specimen Anatomical Collection Method Collection Time Receive d Time (Source) Location / / Volume Laterality Blood 11/02/2021 2:13 AM 2 2:17 EDT AM EDT Resulting Agency Comment Spec In Lab Raul Rodrigez MD HEMATOLOGY ORDERABLES Performing Organization Address City/State/ZIP [place] [address] (ABNORMAL) Prothrombin Time (11/02/2021 2:13 AM EDT) P athologist Signature PT 13.0 (H) 9.4 - 12.5 [facility] LABORATORY INR 1.1 [facility] LABORATORY Comment: An INR <2.0 indicates adequate [...] (Source) Location / / Volume Laterality Blood 11/02/2021 2:13 AM 2 2:17 EDT AM EDT Resulting Agency Comment Spec In Lab Raul Rodrigez MD HEMATOLOGY ORDERABLES Performing Organization Address City/[facility]/ZIP [place] [address] (ABNORMAL) Hepatic Function Panel (11/02/2021 2:13 AM EDT) P athologist Signature Total Protein 5.4 (L) 6.1 - 8.0 [place] RACI[place] g/dL [facility] Albumin 2.6 (L) 3.2 - 5.2 [place] RACIEL g/dL [facility] AST 31 0 - 39 [place] RACI[place] unit/L [facility] ALT 20 0 - 55 KAMALJ[facility] RACIEL unit/L [facility] Alk Phos 437 (H) 40 - 130 [place] RACI[place] unit/L [facility] LAB[facility] Total 1.9 (H) 0.2 - 1.3 [facility] RACI[facility] Bilirubin mg/dL [facility] LABOR[facility] Bili, Direct 1.3 (H) 0.0 - 0.3 [facility] RACI[facility] mg/dL [facility] LABOR[facility]ORY Specimen Anatomical Collection Method Collection Time Receive d Time (Source) Location / / Volume Laterality Blood 11/02/2021 2:13 AM 2 2:17 EDT AM EDT Resulting Agency Comment Spec In Lab Raul Rodrigez MD CHEMISTRY ORDERABLES Performing Organization Address City/[facility]/ZIP Code Phon e Number [address] Phosphorus (11/02/2021 2:13 AM EDT) P athologist Signature Phosphorus 2.8 2.5 - 4.5 [facility] RACIEL mg/dL [facility] LABOR[facility]ORY Specimen Anatomical Collection Method Collection Time Receive d Time (Source) Location / / Volume Laterality Blood 11/02/2021 2:13 AM 2 2:17 EDT AM EDT Resulting Agency Comment Spec In Lab Raul Rodrigez MD CHEMISTRY ORDERABLES Performing Organization Address City/State/ZIP Code Phon e Number [address] Magnesium (11/02/2021 2:13 AM EDT) athologist Signature Magnesium 0.72 0.69 - 1.07 [facility] mmol/L [facility] LABORATORY Specimen Anatomical Collection Method Collection Time Receive d Time (Source) Location / / Volume Laterality Blood 11/02/2021 2:13 AM 2:17 EDT AM EDT Resulting Agency Comment Spec In Lab Raul Rodrigez MD CHEMISTRY ORDERABLES Performing Organization Address City/[facility]/ZIP Code Phon e Number [address] (ABNORMAL) Basic Metabolic Panel (non-fasting) (11/02/2021 2:13 AM EDT) athologist Signature Glucose Lvl 225 (H) 65 - 199 [facility] mg/dL [facility] Comment: Diabetes: >=200 mg/dL plus symp toms BUN 9 (L) 10 - 20 mg/dL [facility] LABORATORY Creatinine 0.79 (L) 0.80 - 1.50 mg/dL [facility] LABORATORY Sodium 139 135 - 145 mmol/L [facility] LABORATORY Potassium 4.0 3.5 - 5.0 mmol/L [facility] LABORATORY Comment: Please note: ??Patients with WBC >100,00 0 may have falsely elevated Potassium levels. ??For accurate Potassium quantif ication in these patients send serum separator tube (gold top) for subsequent determinations. ??Contact the Clinical Chemistry Laboratory if there are any qu estions. Chloride 107 98 - 107 mmol/L [facility] LABORATORY CO2 23 22 - 31 mmol/L [facility]OR[facility]ORY Anion Gap 9 5 - 15 mmol/L [facility] LABORATORY Calcium 7.8 (L) 8.5 - 10.5 mg/dL [facility] LABORATORY Estimated GFR 97 >=60 mL/min/1.73 m?? [facility] Comment: This patient's estimated GFR was [...] (Source) Location / / Volume Laterality Blood 11/02/2021 2:13 AM 2 2:17 EDT AM EDT Resulting Agency Comment Spec In Lab Raul Rodrigez MD CHEMISTRY ORDERABLES Performing Organization Address City/[facility]/ZIP [place] [address] (ABNORMAL) POCT Glucose (11/01/2021 9:08 PM EDT) P athologist Signature POC Glucose 226 (H) 65 - 199 [facility] mg/dL [facility] Comment: Supplemental ranges: <140 mg/dL before meals <180 mg/dL all other times of the day Specimen Anatomical Collection Method Collection Time Receive d Time (Source) Location / / Volume Laterality Blood 11/01/2021 9:08 PM 2 9:08 EDT PM EDT Ava Victor MD POINT OF CARE TEST ORDERABLE S Performing Organization Address City/State/ZIP [place] [address] POCT Glucose (11/01/2021 5:05 PM EDT) athologist Signature POC Glucose 150 65 - 199 [facility] mg/dL [facility] Comment: Supplemental ranges: <140 mg/dL before meals <180 mg/dL all other times of the day Specimen Anatomical Collection Method Collection Time Receive d Time (Source) Location / / Volume Laterality Blood 11/01/2021 5:05 PM 2 5:05 EDT PM EDT Ava Victor MD POINT OF CARE TEST ORDERABLE S Performing Organization Address City/State/ZIP [place] [address] (ABNORMAL) Hemoglobin and Hematocrit, blood (11/01/2021 1:00 PM EDT) athologist Signature Hemoglobin 8.9 (L) 13.7 - [facility] g/dL [facility] Hematocrit 26.1 (L) 40.5 - [facility] 48.5 % [facility] LAB[facility] Specimen Anatomical Collection Method Collection Time Receive d Time (Source) Location / / Volume Laterality Blood 11/01/2021 1:00 PM 2 1:06 EDT PM EDT Resulting Agency Comment Spec In Lab Ava Victor MD HEMATOLOGY ORDERABLES Performing Organization Address City/State/ZIP [place] [address] POCT Glucose (11/01/2021 11:05 AM EDT) athologist Signature POC Glucose 186 65 - 199 [facility] RACIEL mg/dL [facility] Comment: Supplemental ranges: <140 mg/dL before meals <180 mg/dL all other times of the day Specimen Anatomical Collection Method Collection Time Receive d Time (Source) Location / / Volume Laterality Blood 11/01/2021 11:05 11/01/2021 AM EDT 11:05 AM EDT Ava Victor MD POINT OF CARE TEST ORDERABLE S Performing Organization Address City/State/ZIP [place] [address] POCT Glucose (11/01/2021 7:30 AM EDT) athologist Signature POC Glucose 164 65 - 199 [place] RACIEL mg/dL [facility] LAB[facility] Comment: Supplemental ranges: <140 mg/dL before meals <180 mg/dL all other times of the day Specimen Anatomical Collection Method Collection Time Receive d Time (Source) Location / / Volume Laterality Blood 11/01/2021 7:30 AM 2 7:30 EDT AM EDT Sloane Kuo MD POINT OF CARE TEST ORDERABLE S Performing Organization Address City/State/ZIP Code Phon e Number [place] [id number]OS[address] LAB[address]ORY Drive Differential, Automated (11/01/2021 2:38 AM EDT) athologist Signature Neutrophils % 58.2 % [facility] LABORATORY Neutr Abs (ANC) 4.36 1.70 - [facility] 6.10 [facility] x10(3)/[facility] LABORATORY Lymphocytes % 33.8 % [facility] LABORATORY Lymphocytes Abs 2.5 0.9 - 3.2 [facility] x10(3)/[facility] LABORATORY Monocytes % 6.4 % [facility] LABORATORY Monocyte Abs 0.5 0.3 - 0.9 [facility] x10(3)/[facility] LABORATORY Eosinophils % 0.8 % [facility] LABORATORY Eosinophils Abs 0.1 0.0 - 0.4 [facility] x10(3)/[facility] LABORATORY Basophils % 0.3 % [facility] LABORATORY Basophils Abs 0.0 0.0 - 0.1 [facility] x10(3)/[facility] LABORATORY Immature Gran % 0.50 % [facility] LABORATORY Comment: Immature granulocytes(IG's)percentage an d absolute count will include metamyelocytes, myelocytes, and promyelo cytes. Blood smears from CBCs yielding IG's will be scanned manually for concor dance. If this scan disagrees with the automated IG or if promyelocytes are not ed, a manual differential will be performed. Neda Gran Abs 0.04 0.00 - 0.04 x10(3)/[facility] LABORATORY Specimen Anatomical Collection Method Collection Time Receive d Time (Source) Location / / Volume Laterality Blood 11/01/2021 2:38 AM 2 2:58 EDT AM EDT Resulting Agency Comment Spec In Lab Melo Ambrose MD HEMATOLOGY ORDERABLES Performing Organization Address City/State/ZIP [place] [address] (ABNORMAL) Hemogram (11/01/2021 2:38 AM EDT) Patholo gist Method Time Signature WBC 7.5 4.0 - 9.5 [facility] x10(3)/[facility] LABORATORY RBC 2.36 (L) 4.58 - [place]AL[place] RACIEL 5.54 [facility] x10(6)/[facility] LABORATORY Hemoglobin 8.6 (L) 13.7 - [facility] 16.5 g/dL [facility] LABORATORY Hematocrit 25.9 (L) 40.5 - [facility] 48.5 % [facility] LABORATORY MCV 109.7 (H) 82.9 - [facility] 93.1 [facility] LABORATORY MCH 36.4 (H) 27.5 - [facility] 32.1 pg [facility] LABORAT[facility] MCHC 33.2 32.0 - [facility] 35.[facility] g/dL [facility] LABORATORY Platelets 195 145 - 357 [facility] x10(3)/[facility] LABORATORY RDWSD 72.5 (H) 36.0 - [facility] 45.0 [facility] LABORATORY RDWCV 18.0 (H) 11.4 - [facility] 13.8 % [facility] LABORATORY MPV 10.2 7.6 - 12.9 [facility] LABORATORY nRBC % Auto 0.0 % [facility] LABORATORY nRBC Abs Auto 0.000 0.000 - [facility] 0.000 [facility] x10(3)/[facility] LABORATORY Specimen Anatomical Collection Method Collection Time Receive d Time (Source) Location / / Volume Laterality Blood 11/01/2021 2:38 AM 2 2:58 EDT AM EDT Resulting Agency Comment Spec In Lab Melo Ambrose MD HEMATOLOGY ORDERABLES Performing Organization Address City/State/ZIP [place] [address] [facility] [address] APTT (11/01/2021 2:38 AM EDT) P athologist Signature PTT 28 25 - 37 sec [facility] LABORATORY Comment: The PTT is NOT appropriate for heparin m onitoring. Use the Anti-Xa level for heparin monitoring (HEP UFH) or LMWH mon itoring (HEP LMW). A PTT less than 37 seconds generally indicates adequate hem ostasis. Specimen Anatomical Collection Method Collection Time Receive d Time (Source) Location / / Volume Laterality Blood 11/01/2021 2:38 AM 2 2:58 EDT AM EDT Resulting Agency Comment Spec In Lab Raul Rodrigez MD HEMATOLOGY ORDERABLES Performing Organization Address City/[facility] [place] [address] (ABNORMAL) Prothrombin Time (11/01/2021 2:38 AM EDT) P athologist Signature PT 13.4 (H) 9.4 - 12.5 [facility] LABORATORY INR 1.2 [facility] LABORATORY Comment: An INR <2.0 indicates adequate [...] Location / / Volume Laterality Blood 11/01/2021 2:38 AM 2 2:58 EDT AM EDT Resulting Agency Comment Spec In Lab Raul Rodrigez MD HEMATOLOGY ORDERABLES Performing Organization Address City/[facility] [place] [address] (ABNORMAL) Hepatic Function Panel (11/01/2021 2:38 AM EDT) P athologist Signature Total Protein 5.1 (L) 6.1 - 8.0 [facility] g/[facility] Albumin 2.5 (L) 3.2 - 5.2 [facility] RACIEL g/dL [facility] LAB[facility] AST 19 0 - 39 K[facility]AL[facility] RACIEL unit/L [facility] ALT 18 0 - [address] [facility] unit/L [facility] LABORATORY Alk Phos 345 (H) 40 - 130 [facility] RACI[facility] unit/L [facility] LABOR[facility] Total 1.8 (H) 0.2 - 1.3 [facility] RACIEL Bilirubin mg/dL [facility] LABOR[facility] Bili, Direct 1.2 (H) 0.0 - 0.3 [facility] R[facility] mg/dL [facility] LABOR[facility]ORY Specimen Anatomical Collection Method Collection Time Receive d Time (Source) Location / / Volume Laterality Blood 11/01/2021 2:38 AM 2 2:58 EDT AM EDT Resulting Agency Comment Spec In Lab Raul Rodrigez MD CHEMISTRY ORDERABLES Performing Organization Address City/[facility]/ZIP [place] [address] Phosphorus (11/01/2021 2:38 AM EDT) athologist Signature Phosphorus 2.6 2.5 - 4.5 [facility] mg/dL [facility] LAB[facility] Specimen Anatomical Collection Method Collection Time Receive d Time (Source) Location / / Volume Laterality Blood 11/01/2021 2:38 AM 2 2:58 EDT AM EDT Resulting Agency Comment Spec In Lab Raul Rodrigez MD CHEMISTRY ORDERABLES Performing Organization Address City/[facility]/ZIP [place] [address] Magnesium (11/01/2021 2:38 AM EDT) athologist Signature Magnesium 0.77 0.69 - 1.07 [facility] mmol/L [facility] LABOR[facility] Specimen Anatomical Collection Method Collection Time Receive d Time (Source) Location / / Volume Laterality Blood 11/01/2021 2:38 AM 2 2:58 EDT AM EDT Resulting Agency Comment Spec In Lab Raul Rodrigez MD CHEMISTRY ORDERABLES Performing Organization Address City/[facility]/ZIP [facility] [place] [address] (ABNORMAL) Basic Metabolic Panel (non-fasting) (11/01/2021 2:38 AM EDT) P athologist Signature Glucose Lvl 170 65 - 199 [facility] mg/dL [facility] Comment: Diabetes: >=200 mg/dL plus symp toms BUN 9 (L) 10 - 20 mg/dL [facility] LABORATORY Creatinine 0.69 (L) 0.80 - 1.50 mg/dL [facility] LABORATORY Sodium 136 135 - 145 mmol/L [facility] LABORATORY Potassium 4.2 3.5 - 5.0 mmol/L [facility] LABORATORY Comment: Please note: ??Patients with WBC >100,00 0 may have falsely elevated Potassium levels. ??For accurate Potassium quantif ication in these patients send serum separator tube (gold top) for subsequent determinations. ??Contact the Clinical Chemistry Laboratory if there are any qu estions. Chloride 106 98 - 107 mmol/L [facility] LABORATORY CO2 22 22 - 31 mmol/L [facility] LABORATORY Anion Gap 8 5 - 15 mmol/L [facility] LABORATORY Calcium 7.6 (L) 8.5 - 10.5 mg/dL [facility] LABORATORY Estimated GFR 101 >=60 mL/min/1.73 m?? [facility]OR[facility] Comment: This patient's estimated GFR was calcula jeffy using the 2020 CKD-EPI equation. The estimated GFR can vary from the raliegh ured GFR by up to 30% in [...] Location / / Volume Laterality Blood 11/01/2021 2:38 AM 2 2:58 EDT AM EDT Resulting Agency Comment Spec In Lab Raul Rodrigez MD CHEMISTRY ORDERABLES Performing Organization Address City/State/ZIP Code Ph[place] [address] POCT Glucose (10/31/2021 8:14 PM EDT) athologist Signature POC Glucose 185 65 - 199 [facility] RACIEL mg/dL [facility] Comment: Supplemental ranges: <140 mg/dL before meals <180 mg/dL all other times of the day Specimen Anatomical Collection Method Collection Time Receive d Time (Source) Location / / Volume Laterality Blood 10/31/2021 8:14 PM 2 8:14 EDT PM EDT Sloane Kuo MD POINT OF CARE TEST ORDERABLE S Performing Organization Address City/State/ZIP [place] [address] POCT Glucose (10/31/2021 5:15 PM EDT) athologist Signature POC Glucose 183 65 - 199 [facility] mg/dL [facility] Comment: Supplemental ranges: <140 mg/dL before meals <180 mg/dL all other times of the day Specimen Anatomical Collection Method Collection Time Receive d Time (Source) Location / / Volume Laterality Blood 10/31/2021 5:15 PM 2 5:15 EDT PM EDT Sloane Kuo MD POINT OF CARE TEST ORDERABLE S Performing Organization Address City/State/ZIP [place] [address] POCT Glucose (10/31/2021 3:12 PM EDT) athologist Signature POC Glucose 165 65 - 199 [facility] RACIEL mg/dL [facility] Comment: Supplemental ranges: <140 mg/dL before meals <180 mg/dL all other times of the day Specimen Anatomical Collection Method Collection Time Receive d Time (Source) Location / / Volume Laterality Blood 10/31/2021 3:12 PM 2 3:12 EDT PM EDT Sloane Kuo MD POINT OF CARE TEST ORDERABLE S Performing Organization Address City/State/ZIP [place] [address] (ABNORMAL) Basic Metabolic Panel (non-fasting) (10/31/2021 1:55 PM EDT) P athologist Signature Glucose Lvl 87 65 - 199 [facility] mg/dL [facility] Comment: Diabetes: >=200 mg/dL plus symp toms BUN 9 (L) 10 - 20 mg/dL [facility] LABORATORY Creatinine 0.67 (L) 0.80 - 1.50 mg/dL [facility] LABORATORY Sodium 135 135 - 145 mmol/L [facility] LABORATORY Potassium 3.6 3.5 - 5.0 mmol/L [facility] LABORATORY Comment: Please note: ??Patients with WBC >100,00 0 may have falsely elevated Potassium levels. ??For accurate Potassium quantif ication in these patients send serum separator tube (gold top) for subsequent determinations. ??Contact the Clinical Chemistry Laboratory if there are any qu estions. Chloride 103 98 - 107 mmol/L [facility] LABORATORY CO2 23 22 - 31 mmol/L [facility] LABORATORY Anion Gap 9 5 - 15 mmol/L [facility] LABORATORY Calcium 8.1 (L) 8.5 - 10.5 mg/dL [facility] LABORATORY Estimated GFR 102 >=60 mL/min/1.73 m?? [facility] LABORAT[facility] Comment: This patient's estimated GFR was [...] Location / / Volume Laterality Blood 10/31/2021 1:55 PM 2 2:05 EDT PM EDT Resulting Agency Comment Spec In Lab Sloane Kuo MD CHEMISTRY ORDERABLES Performing Organization Address City/State/ZIP Code Phon e Number [address] POCT Glucose (10/31/2021 11:09 AM EDT) P athologist Signature POC Glucose 140 65 - 199 [facility]/dL [facility] Comment: Supplemental ranges: <140 mg/dL before meals <180 mg/dL all other times of the day Specimen Anatomical Collection Method Collection Time Receive d Time (Source) Location / / Volume Laterality Blood 10/31/2021 11:09 10/31/2021 AM EDT 11:09 AM EDT Sloane Kuo MD POINT OF CARE TEST ORDERABLE S Performing Organization Address City/State/ZIP [place] [address] POCT Glucose (10/31/2021 7:31 AM EDT) athologist Signature POC Glucose 126 65 - 199 [facility] mg/dL [facility] Comment: Supplemental ranges: <140 mg/dL before meals <180 mg/dL all other times of the day Specimen Anatomical Collection Method Collection Time Receive d Time (Source) Location / / Volume Laterality Blood 10/31/2021 7:31 AM 2 7:31 EDT AM EDT Sloane Kuo MD POINT OF CARE TEST ORDERABLE S Performing Organization Address City/State/ZIP [place] [address] POCT Glucose (10/31/2021 6:36 AM EDT) athologist Signature POC Glucose 129 65 - 199 [facility] mg/dL [facility] Comment: Supplemental ranges: <140 mg/dL before meals <180 mg/dL all other times of the day Specimen Anatomical Collection Method Collection Time Receive d Time (Source) Location / / Volume Laterality Blood 10/31/2021 6:36 AM 2 6:36 EDT AM EDT Sloane Kuo MD POINT OF CARE TEST ORDERABLE S Performing Organization Address City/State/ZIP [place] [address] Type and Screen Validity (10/31/2021 4:13 AM EDT) [facility] Method Time Signature T&S only valid [facility] KAMALJIT RACIEL at [facility] LAB[facility] Comment: This Type and Screen result is only valid at the [facility] Specimen Anatomical Collection Method Collection Time Receive d Time (Source) Location / / Volume Laterality Blood 10/31/2021 4:13 AM 2 4:33 EDT AM EDT Resulting Agency Comment Spec In Lab Sloane Kuo MD BLOOD BANK ORDERABLES Performing Organization Address City/[facility]/ZIP Code Phon e Number [address] Antibody screen (10/31/2021 4:13 AM EDT) [facility] Method [place] Signature Ab Screen Negative [facility] LABORATORY Expires at 11/03/2021 [facility] [id number] on: [facility] LABOR[facility]ORY Specimen Anatomical Collection Method Collection Time Receive d Time (Source) Location / / Volume Laterality Blood 10/31/2021 4:13 AM 2 4:33 EDT AM EDT Resulting Agency Comment Spec In Lab Sloane Kuo MD BLOOD BANK ORDERABLES Performing Organization Address City/State/ZIP [place] [address] ABO/Rh Typing (10/31/2021 4:13 AM EDT) athologist Signature ABORh Type A Pos [facility] LABORATORY Specimen Anatomical Collection Method Collection Time Receive d Time (Source) Location / / Volume Laterality Blood 10/31/2021 4:13 AM 2 4:33 EDT AM EDT Resulting Agency Comment Spec In Lab Sloane Kuo MD BLOOD BANK ORDERABLES Performing Organization Address City/State/ZIP [place] [address] Differential, Automated (10/31/2021 4:13 AM EDT) athologist Signature Neutrophils % 67.2 % [facility] LABORATORY Neutr Abs (ANC) 5.72 1.70 - [facility] 6.10 [facility] x10(3)/[facility] LABORATORY Lymphocytes % 26.4 % [facility] Lymphocytes Abs 2.2 0.9 - 3.2 [facility] x10(3)/[facility] LABORATORY Monocytes % 5.4 % [facility] Monocyte Abs 0.5 0.3 - 0.9 [facility] x10(3)/[facility] LABORATORY Eosinophils % 0.4 % [facility] Eosinophils Abs 0.0 0.0 - 0.4 [facility] x10(3)/[facility] LABORATORY Basophils % 0.2 % [facility] Basophils Abs 0.0 0.0 - 0.1 [facility] x10(3)/[facility] LABORATORY Immature Gran % 0.40 % [facility] Comment: Immature granulocytes(IG's)percentage an d absolute count will include metamyelocytes, myelocytes, and promyelo cytes. Blood smears from CBCs yielding IG's will be scanned manually for concor dance. If this scan disagrees with the automated IG or if promyelocytes are not ed, a manual differential will be performed. Neda Gran Abs 0.03 0.00 - 0.04 x10(3)/[facility] LABORATORY Specimen Anatomical Collection Method Collection Time Receive d Time (Source) Location / / Volume Laterality Blood 10/31/2021 4:13 AM 4:31 EDT AM EDT Resulting Agency Comment Spec In Lab Melo Ambrose MD HEMATOLOGY ORDERABLES Performing Organization Address City/State/ZIP [place] [address] (ABNORMAL) Hemogram (10/31/2021 4:13 AM EDT) athologist Signature WBC 8.5 4.0 - 9.5 [facility] x10(3)/[facility] LABORATORY RBC 2.25 (L) 4.58 - [facility] 5.54 [facility] x10(6)/[facility] LABORATORY Hemoglobin 8.5 (L) 13.7 - [facility] 16.5 g/dL [facility] Hematocrit 24.5 (L) 40.5 - [facility] 48.5 % [facility] MCV 108.9 (H) 82.9 - [facility] 93.1 [facility] LABORATORY Comment: Interpret results with Caution. Specimen rerun and specimen ID confirmed.. This result has been called to SULEMA RODRÍGUEZ by Erlin Goldstein on 10 31 2021 at 0513, and has been read back. MCH 37.8 (H) 27.5 - 32.1 pg [facility] MCHC 34.7 32.0 - 35.7 g/dL [facility] LABORATORY Platelets 197 145 - 357 x10(3)/[facility] LABORATORY RDWSD 72.8 (H) 36.0 - 45.0 [facility] LABORATORY RDWCV 18.3 (H) 11.4 - 13.8 % [facility] LABORATORY MPV 10.2 7.6 - 12.9 [facility] LABORATORY nRBC % Auto 0.0 % [facility] LABORATORY nRBC Abs Auto 0.000 0.000 - 0.000 x10(3)/[facility] LABORATORY Specimen Anatomical Collection Method Collection Time Receive d Time (Source) Location / / Volume Laterality Blood 10/31/2021 4:13 AM 4:31 EDT AM EDT Resulting Agency Comment Spec In Lab Melo Ambrose MD HEMATOLOGY ORDERABLES Performing Organization Address City/State/ZIP [place] [address] APTT (10/31/2021 4:13 AM EDT) P athologist Signature PTT 27 25 - 37 sec [facility] Comment: The PTT is NOT appropriate for heparin m onitoring. Use the Anti-Xa level for heparin monitoring (HEP UFH) or LMWH mon itoring (HEP LMW). A PTT less than 37 seconds generally indicates adequate hem ostasis. Specimen Anatomical Collection Method Collection Time Receive d Time (Source) Location / / Volume Laterality Blood 10/31/2021 4:13 AM 4:31 EDT AM EDT Resulting Agency Comment Spec In Lab Raul Rodrigez MD HEMATOLOGY ORDERABLES Performing Organization Address City/[facility] [place] [address] (ABNORMAL) Prothrombin Time (10/31/2021 4:13 AM EDT) athologist Signature PT 13.2 (H) 9.4 - 12.5 [facility] LABORATORY INR 1.2 [facility] Comment: An INR <2.0 indicates adequate [...] / Volume Laterality Blood 10/31/2021 4:13 AM 4:31 EDT AM EDT Resulting Agency Comment Spec In Lab Raul Rodrigez MD HEMATOLOGY ORDERABLES Performing Organization Address City/[facility] [place] [address] (ABNORMAL) Hepatic Function Panel (10/31/2021 4:13 AM EDT) P athologist Signature Total Protein 5.4 (L) 6.1 - 8.0 [facility] g/dL [facility] Albumin 2.6 (L) 3.2 - 5.2 [facility] g/dL [facility] AST 24 0 - 39 [facility] unit/L [facility] ALT 21 0 - 55 [facility] unit/L [facility] Alk Phos 395 (H) 40 - 130 [facility] unit/L [facility] Total 2.1 (H) 0.2 - 1.3 [facility] Bilirubin mg/dL [facility] Bili, Direct 1.4 (H) 0.0 - 0.3 [facility] mg/dL [facility] Specimen Anatomical Collection Method Collection Time Receive d Time (Source) Location / / Volume Laterality Blood 10/31/2021 4:13 AM 2 4:30 EDT AM EDT Resulting Agency Comment Spec In Lab Raul Rodrigez MD CHEMISTRY ORDERABLES Performing Organization Address City/State/ZIP Code Phon e Number [address] Phosphorus (10/31/2021 4:13 AM EDT) P athologist Signature Phosphorus 3.0 2.5 - 4.5 [facility] mg/dL [facility] Specimen Anatomical Collection Method Collection Time Receive d Time (Source) Location / / Volume Laterality Blood 10/31/2021 4:13 AM 2 4:30 EDT AM EDT Resulting Agency Comment Spec In Lab Raul Rodrigez MD CHEMISTRY ORDERABLES Performing Organization Address City/State/ZIP Code Phon e Number [address] Magnesium (10/31/2021 4:13 AM EDT) P athologist Signature Magnesium 0.71 0.69 - 1.07 [facility] mmol/L [facility] LAB[facility] Specimen Anatomical Collection Method Collection Time Receive d Time (Source) Location / / Volume Laterality Blood 10/31/2021 4:13 AM 2 4:30 EDT AM EDT Resulting Agency Comment Spec In Lab Raul Rodrigez MD CHEMISTRY ORDERABLES Performing Organization Address City/[facility]/ZIP Code Phon e Number [address] (ABNORMAL) Basic Metabolic Panel (non-fasting) (10/31/2021 4:13 AM EDT) P athologist Signature Glucose Lvl 92 65 - 199 [facility] mg/dL [facility] Comment: Diabetes: >=200 mg/dL plus symp toms BUN 10 10 - 20 mg/dL [facility] Creatinine 0.56 (L) 0.80 - 1.50 mg/dL [facility] LABOR[facility]ORY Sodium 133 (L) 135 - 145 mmol/L [facility] Potassium 3.4 (L) 3.5 - 5.0 mmol/L [facility] Comment: Please note: ??Patients with WBC >100,00 0 may have falsely elevated Potassium levels. ??For accurate Potassium quantif ication in these patients send serum separator tube (gold top) for subsequent determinations. ??Contact the Clinical Chemistry Laboratory if there are any qu estions. Chloride 104 98 - 107 mmol/L [facility] CO2 23 22 - 31 mmol/L [facility] Anion Gap 6 5 - 15 mmol/L [facility] Calcium 7.9 (L) 8.5 - 10.5 mg/dL [facility] LABOR[facility] Estimated GFR 108 >=60 mL/min/1.73 m?? [facility] Comment: This patient's estimated GFR was [...] / Volume Laterality Blood 10/31/2021 4:13 AM 4:30 EDT AM EDT Resulting Agency Comment Spec In Lab Raul Rodrigez MD CHEMISTRY ORDERABLES Performing Organization Address City/State/ZIP [place] [address] POCT Glucose (10/31/2021 3:18 AM EDT) athologist Signature POC Glucose 88 65 - 199 [facility] mg/dL [facility] Comment: Supplemental ranges: <140 mg/dL before meals <180 mg/dL all other times of the day Specimen Anatomical Collection Method Collection Time Receive d Time (Source) Location / / Volume Laterality Blood 10/31/2021 3:18 AM 3:18 EDT AM EDT Sloane Kuo MD POINT OF CARE TEST ORDERABLE S Performing Organization Address City/State/ZIP Code Phon e Number [address] POCT Glucose (10/31/2021 12:09 AM EDT) athologist Signature POC Glucose 87 65 - 199 [facility] mg/dL [facility] Comment: Supplemental ranges: <140 mg/dL before meals <180 mg/dL all other times of the day Specimen Anatomical Collection Method Collection Time Receive d Time (Source) Location / / Volume Laterality Blood 10/31/2021 12:09 10/31/2021 AM EDT 12:09 AM EDT Sloane Kuo MD POINT OF CARE TEST ORDERABLE S Performing Organization Address City/State/ZIP [place] [address] POCT Glucose (10/30/2021 11:09 PM EDT) athologist Signature POC Glucose 71 65 - 199 [facility] mg/dL [facility] Comment: Supplemental ranges: <140 mg/dL before meals <180 mg/dL all other times of the day Specimen Anatomical Collection Method Collection Time Receive d Time (Source) Location / / Volume Laterality Blood 10/30/2021 11:09 10/30/2021 PM EDT 11:09 PM EDT Sloane Kuo MD POINT OF CARE TEST ORDERABLE S Performing Organization Address City/State/ZIP [place] [address] (ABNORMAL) POCT Glucose (10/30/2021 9:10 PM EDT) P athologist Signature POC Glucose 248 (H) 65 - 199 [facility] Comment: Supplemental ranges: <140 mg/dL before meals <180 mg/dL all other times of the day Specimen Anatomical Collection Method Collection Time Receive d Time (Source) Location / / Volume Laterality Blood 10/30/2021 9:10 PM 2 9:10 EDT PM EDT Sloane Kuo MD POINT OF CARE TEST ORDERABLE S Performing Organization Address City/State/ZIP [place] [address] (ABNORMAL) POCT Glucose (10/30/2021 7:03 PM EDT) athologist Signature POC Glucose 281 (H) 65 - 199 [facility] Comment: Supplemental ranges: <140 mg/dL before meals <180 mg/dL all other times of the day Specimen Anatomical Collection Method Collection Time Receive d Time (Source) Location / / Volume Laterality Blood 10/30/2021 7:03 PM 2 7:03 EDT PM EDT Sloane Kuo MD POINT OF CARE TEST ORDERABLE S Performing Organization Address City/[facility]/ZIP [place] [address] EKG 12 Lead (10/30/2021 5:50 PM EDT) Component Value Ref Range Test Analysis Performed Pathologis t Method Time At Signature Ventricular rate 66 BPM MUSE SYSTEM Atrial Rate 66 BPM MUSE SYSTEM P-R Interval 172 ms MUSE SYSTEM QRS Duration 152 ms MUSE SYSTEM Q-T Interval 436 ms MUSE SYSTEM QTC Calculated 457 ms MUSE SYSTEM (Bezet) Calculated P [place] 65 degrees MUSE SYSTEM Calculated R [place] 69 degrees MUSE SYSTEM Calculated T [place] 66 degrees MUSE SYSTEM INTERPRETATION Normal sinus rhythm MUSE SYSTEM Left bundle branch block Abnormal ECG When compared with ECG of 26-APR-2008 07:39, No significant change was found Confirmed by Sienna Tian ([id number]) on 10/31/2021 5:39:51 P M Specimen Anatomical Collection Method Collection Time Receive d Time (Source) Location / / Volume Laterality 10/30/2021 5:50 PM 2 5:39 EDT PM EDT Sloane Kuo MD ECG ORDERABLES Performing Organization Address City/State/ZIP Code Phon e Number MUSE SYSTEM POCT Glucose (10/30/2021 4:17 PM EDT) P athologist Signature POC Glucose 150 65 - 199 [facility] mg/dL [facility] Comment: Supplemental ranges: <140 mg/dL before meals <180 mg/dL all other times of the day Specimen Anatomical Collection Method Collection Time Receive d Time (Source) Location / / Volume Laterality Blood 10/30/2021 4:17 PM 2 4:17 EDT PM EDT Sloane Kuo MD POINT OF CARE TEST ORDERABLE S Performing Organization Address City/[facility]/ZIP [place] [address] UPPER GI ENDOSCOPY (10/30/2021 2:40 PM EDT) Component Value Ref Test Analysis Performed At Patholo gist Range Method Time Signature UPPER GI [facility] ENDOSCOPY Endoscopy Procedure Date: 10/30/2021 2:40 PM ? Patient Name: John Duarte ? Date of : 1955 ? Age: 66 ? Order #: [id number] ? Instrument Name: [id number] ? Procedure: ? Upper GI endoscopy Indications: ? [facility] Providers: ? Raul Rodrigez MD, Carolee ? Julita Isabel , HENRIETTA, ? Mor Fuentes MD: ? Medicines: ? [...] w as ? introduced through the phan , and [...] Procedure Code(s): ? --- Professional --- ? 49259, Esophagogastroduode noscopy, ? flexible, transoral; diagn ostic, ? including collection of sp ecimen(s) ? by brushing or washing, wh en ? performed (separate proced ure) CPT copyright 2020 [employer]. All rights reserved. The codes documented in this report are preliminary and upon electronic intelligence officer review may be revised to meet current compliance requirements. Attending Participation: ? I was present and participated during the entire ? procedure, including non-blackwell portions. ? Raul Rodrigez MD 10/30/2021 3:24:28 PM This report has been signed electronically. Number of Addenda: 0 Note Initiated On: 10/30/2021 2:40 PM Specimen (Source) Anatomical Collection Method Collection Time Re ceived Time Location / / Volume Laterality 10/30/2021 2:40 PM EDT Unknown GENERAL SURGICAL ORDERABLES Performing Organization Address City/State/ZIP Code Phon e Number [facility] POCT Glucose (10/30/2021 2:04 PM EDT) P athologist Signature POC Glucose 191 65 - 199 [facility] mg/dL [facility] Comment: Supplemental ranges: <140 mg/dL before meals <180 mg/dL all other times of the day Specimen Anatomical Collection Method Collection Time Receive d Time (Source) Location / / Volume Laterality Blood 10/30/2021 2:04 PM 2:04 EDT PM EDT Raul Rodrigez MD POINT OF CARE TEST ORDERABLE S Performing Organization Address City/State/ZIP [place] [address] documented in this encounter Visit Diagnoses Diagnosis Preop cardiovascular exam Pre-operative cardiovascular examination Malignant neoplasm of head of pancreas Pancreatic adenocarcinoma Malignant neoplasm of pancreas, part uns pecified Duodenal ulcer Duodenal ulcer, unspecified as acute or chronic, without hemorrhage, perforation, or obstruction Severe protein-calorie malnutrition Other severe protein-calorie malnutritio n Solid nodule of lung less than 6 mm in d iameter Acute on chronic blood loss anemia Malignant neoplasm of head of pancreas documented in this encounter Admitting Diagnoses Diagnosis Duodenal ulcer Duodenal ulcer, unspecified as acute or chronic, without hemorrhage, perforation, or obstruction documented in this encounter Administered Medications Inactive Administered Medications - up to 3 most recent administrations Medication Order MAR Action Action Date Dose Rate Site atorvastatin (Lipitor) tablet 40 mg Given 11/02/2021 4:41 PM EDT 40 mg 40 mg, Oral, EVERY EVENING, First dose (after last modification) on Wed10/31/21 at 1700, Until Discontinued, Routine Given 11/01/2021 6:02 PM EDT 40 mg Given 10/31/2021 5:15 PM EDT 40 mg atorvastatin (Lipitor) tablet 80 mg Given 10/30/2021 6:58 PM EDT 80 mg 80 mg, Oral, EVERY EVENING, First dose on Wed10/30/21 at 1700, Until Discontinued, Routine dextrose 10% infusion 250 mL, at 1,000 mL/hr, Intravenous, PIPER RY 30 MIN PRN, Starting on Wed10/30/21 at 1743, Until Wed11/03/21 at 1820, For BG 50-70 mg/dL: Oral treatment preferred: If able to drink, give 120 mL Juice or R egular (not diet) soda OR If NPO, give 15 gram glucose 40% oral gel massaged into buccal mucosa OR if unconscious or uncooperative, give 25 gram (250 mL) Dex trose 10% IV over 15 minutes per protocol OR, if no IV access, 1 mg Glucagon IM. * * For BG less than 50 mg/dL: Oral treatment preferred: If able to drink, give 240 mL Juice or Regu lar (not diet) soda OR If NPO, give 30 gram glucose 40% oral gel m assaged in buccal mucosa OR if unconscious or uncooperative, give 25 gram (250 mL) Dextrose 10% I V over 15 minutes per protocol OR, if no IV access, 1 mg Glucagon IM. Rech jesica BG in 30 minutes. May repeat juice/soda, gel, dextrose or gluc agon once per episode. For persistent hypoglycemia, consider longer-acting treatment for the duration of the active insulin. fentaNYL (pf) (50 mcg/mL) multi-dose Given 11/03/2021 8:50 AM ED T 50 mcg injection 25-50 mcg 25-50 mcg, Intravenous, EVERY 3 MIN PRN, Starting on Wed11/03/21 at 0734, Until Wed11/03/21 at 1820, Pain, per unit protocol, - Start dose 50 mcg (reduce dose to 25 mcg if history of sedation sensitivity). - Titration dose 25-50 mcg IV, (based on patient response) every 3 minutes PRN, to maintain procedural pain less than 2 per pain Scale. Maximum dose: 50 mcg/dose, 250 mcg/hour For use in Interventional Radiology (IR) only for procedural sedation with direct provider supervision and verbal order., Angio/IR (Intra-Procedure), Routine Given 11/03/2021 8:38 AM EDT 50 mcg Given 11/03/2021 8:29 AM EDT 50 mcg flumazeniL (Romazicon) (0.1 mg/mL) injec tion 0.2 mg 0.2 mg, Intravenous, EVERY 2 MIN PRN, 5 doses, Startin g on Wed11/03/21 at 0734, Until Wed11/03/21 at 1820, for respiratory rate less t prakash 8, SpO2 less than 90% despite supplement O2, or patient unable to arouse., Give every 2 minutes IV PRN for total of 5 doses for respiratory rat e less than 8, SpO2 less than 90% despite supplement O2, or patient unable to arou se. , Angio/IR (Intra-Procedure), Routine glucagon (Glucagen) (1 mg/mL) injection solution 1 mg 1 mg, Intramuscular, EVERY 30 MIN PRN, S tarting on Yanet 10/30/21 at 1743, Until Wed11/03/21 at 1820, Low blood sugar, For BG 50-70 mg/dL: Oral treatment preferred: If able to drink, give 120 mL Juice or R egular (not diet) soda OR If NPO, give 15 gram glucose 40% oral gel massaged into buccal mucosa OR if unconscious or uncooperative, give 25 gram (250 mL) Dex trose 10% IV over 15 minutes per protocol OR, if no IV access, 1 mg Glucagon IM. * * For BG less than 50 mg/dL: Oral treatment preferred: If able to drink, give 240 mL Juice or Regu lar (not diet) soda OR If NPO, give 30 gram glucose 40% oral gel m assaged in buccal mucosa OR if unconscious or uncooperative, give 25 gram (250 mL) Dextrose 10% I V over 15 minutes per protocol OR, if no IV access, 1 mg Glucagon IM. Rech jesica BG in 30 minutes. May repeat juice/soda, gel, dextrose or gluc agon once per episode. For persistent hypoglycemia, consider longer-acting treatment for the duration of the active insulin., Routine glucose (Glutose) 40% oral geL 15-30 g of glucose, Buccal, EVERY 30 MIN PRN, Starting on Yanet 10/30/21 at 1743, Until Wed11/03/21 at 1820, Low blood sug ar, For BG 50-70 mg/dL: Oral treatment preferred: If able to drink, give 120 mL Juice or Regu lar (not diet) soda OR If NPO, give 15 gram glucose 40% oral gel massaged into b uccal mucosa OR if unconscious or uncooperative, give 25 gr am (250 mL) Dextrose 10% IV over 15 minutes per protocol OR, if no IV access, 1 mg G lucagon IM. For BG less than 50 mg/dL: Oral treatment preferred: If able to dri nk, give 240 mL Juice or Regular (not diet) soda OR If NPO, give 30 gram glucose 40% oral gel massaged in buccal mucosa OR if unconscious or uncooperative, give 25 gr am (250 mL) Dextrose 10% IV over 15 minutes per protocol OR, if no IV access, 1 mg G lucagon IM. Recheck BG in 30 minutes. May repeat juice/soda, gel, dextrose or gluc agon once per episode. For persistent hypoglycemia, consider longer-acting treatment for the duration of the active insulin. 1 tube of Glutose-15 contains 1 5 grams of glucose (net weight of tube = 37.5 grams.), Routine heparin (pf) (porcine) (100 units/mL) fl ush 5 mL syringe 500 Units 500 Units (5 mL), Intravenous, DAILY PRN , 1 dose, Starting on Wed11/03/21 at 1517, Until Wed11/03/21 at 1820, Line Care, Terminal Flush f or de-accessing of Implantable Port, Routine insulin glargine-ygfn (Semglee) (100 Given 11/03/2021 1:01 PM ED T 5 Units unit/mL) subcutaneous injection vial 5 U nits 5 Units, Subcutaneous, DAILY, First dose on Wed11/03/21 at 0900, Until Discontinued, Routine insulin lispro (HumaLOG;Admelog) (100 Given 10/30/2021 8:35 PM E DT 4 Units unit/mL) subcutaneous injection vial 0-8 Units 0-8 Units, Subcutaneous, 3 TIMES DAILY WITH MEALS, First dose on Wed10/30/21 at 1800, Until Discontinued, MEAL ASSOCIATED Give 1 unit for every 10 grams carbohydrate. Hold if not eating or if BG less than 70 mg/dL., Routine insulin lispro (HumaLOG;Admelog) (100 Given 11/03/2021 2:16 PM E DT 1 Units unit/mL) subcutaneous injection vial 0-8 Units 0-8 Units, Subcutaneous, 3 TIMES DAILY WITH MEALS, First dose on Wed10/31/21 at 1700, Until Discontinued, MEAL ASSOCIATED Give 1 unit for every 10 grams carbohydrate. Hold if not eating or if BG less than 70 mg/dL., Routine Given 11/02/2021 5:48 PM EDT 1 Units Given 11/02/2021 9:44 AM EDT 3 Units insulin lispro (HumaLOG;Admelog) (100 Given 11/03/2021 11:29 AM EDT 2 Units unit/mL) subcutaneous injection vial 1-6 Units 1-6 Units, Subcutaneous, 3 TIMES DAILY BEFORE MEALS, First dose on Yanet 10/30/21 at 1800, Until Discontinued, CORRECTION BOLUS [1-6 Units] Moderate Sliding Scale (BG in mg/dL): Correction factor 20 (1 unit of insulin is expected to drop the glucose 20 mg/dL) BG 140 - 160 Give 1 unit BG 161 - 180 Give 2 units BG 181 - 200 Give 3 units BG 201 - 220 Give 4 units BG 221 - 240 Give 5 units BG greater than 240, give 6 units and recheck BG in 2 hours. - If recheck BG is LESS than 240, give no insulin and resume schedule. - If recheck BG is GREATER than 240, give 6 units and repeat BG in 2 hours (no more than 3 times) & call for new insulin orders. DO NOT hold if NPO, unless specifically directed to do so by written order. Per Blood Glucose Monitoring Policy, re-check a BG of > 240 mg/dL in 2 hours., Routine Given 11/02/2021 8:29 AM EDT 4 Units Given 11/01/2021 6:02 PM EDT 1 Units insulin regular (HumuLIN R,NovoLIN R) (100 Given 10/31/2021 2:43 PM EDT 4 Units unit/mL) injection vial 4 Units 4 Units, Subcutaneous, ONCE, 1 dose, On Wed10/31/21 at 1500, Routine lactated ringers infusion New Bag 10/30/2021 11:16 PM EDT 100 mL/hr 100 mL/hr 100 mL/hr, Intravenous, CONTINUOUS, Starting on Wed10/30/21 at 1400, Until Wed10/31/21 at 0730 Rate/Dose Change 10/30/2021 3:14 PM EDT 400 mL/hr New Bag 10/30/2021 2:44 PM EDT 100 mL/hr lidocaine (Xylocaine) 1% (10 mg/mL) injection Given 8:30 AM EDT 10 mg 10 mg 10 mg, Subcutaneous, ONCE, 1 dose, On Wed11/03/21 at 0830, For use in Interventional Radiology (IR) only for procedure with direct provider supervision and verbal order., Angio/IR (Intra-Procedure), Routine lidocaine (Xylocaine) 1% (10 mg/mL) inje ction 3 mg 3 mg (0.3 mL), Subcutaneous, ONCE PRN, 1 dose, Startin g on Wed11/03/21 at 0734, Until Wed11/03/21 at 1820, for discomfort with PIV ins ertion, Routine losartan (Cozaar) tablet 37.5 mg Given 11/03/2021 11:26 AM EDT 37.5 mg 37.5 mg, Oral, DAILY, First dose on Yanet 10/30/21 at 2000, Until Discontinued, Routine Given 11/02/2021 8:30 AM EDT 37.5 mg Given 11/01/2021 8:06 AM EDT 37.5 mg magnesium sulfate 2 g in sterile water New Bag 10/31/2021 8:41 AM EDT 2 g 25 mL/hr 50 mL infusion 2 g, Intravenous, ONCE, 1 dose, On Wed10/31/21 at 0830, Administer over 120 Minutes magnesium sulfate 2 g in sterile water New Bag 11/03/2021 1:00 PM EDT 2 g 25 mL/hr 50 mL infusion 2 g, Intravenous, ONCE, 1 dose, On Wed11/03/21 at 1245, Administer over 120 Minutes metoprolol tartrate (Lopressor) tablet 12.5 Given 10/20 11:27 AM EDT 12.5 mg mg 12.5 mg, Oral, EVERY 12 HOURS SCHEDULED (2 times per day), First dose on Wed10/30/21 at 2100, Until Discontinued, Routine Given 11/02/2021 8:46 PM EDT 12.5 mg Given 11/02/2021 8:29 AM EDT 12.5 mg midazolam (pf) (Versed) (1 mg/mL) multi-dose Given 11/03/2021 8: 39 AM EDT 1 mg injection 0.5-1 mg 0.5-1 mg, Intravenous, EVERY 3 MIN PRN, Starting on Wed11/03/21 at 0734, Until Wed11/03/21 at 1820, Sleep, - Start dose; 1 mg (Reduce dose to 0.5 mg if history of sedation sensitivity). - Titration dose: 0.5 mg - 1 mg (based on patient response) every 3 minutes PRN to obtain RASS score of -3. Maximum dose: 1 mg per dose, 5 mg/hour. For use in Interventional Radiology (IR) only for procedural sedation with direct provider supervision and verbal order., Angio/IR (Intra-Procedure), Routine Given 11/03/2021 8:29 AM EDT 1 mg naloxone (NARCAN) injection 1 mg/mL 0.1 mg 0.1 mg, Intravenous, EVERY 2 MIN PRN, St arting on Wed11/03/21 at 0734, Until Wed11/03/21 at 1820, Opioid Reversal, Give e very 2 minutes PRN for opioid reversal, for respiratory rate less than 8 per minute, SpO2 less than 90% despite supplement O2, or patient unable to arouse. Maximum dose of 0.8 mg in tra-procedure., Angio/IR (Intra-Procedure), Routine nicotine (Nicoderm CQ) Patch Applied 11/03/2021 11:42 AM 21 mg 03- Shoulder 21 mg/24 hr patch 21 mg EDT (Left) 21 mg (1 patch), Transdermal, DAILY, First dose on Wed10/30/21 at 1800, Until Discontinued, Apply new patch to nonhairy, clean, dry skin on the upper body or upper outer arm; each patch should be applied to a different site , Routine Patch Applied 11/02/2021 8:33 AM EDT 21 mg 04- Shoulder (Right) Patch Applied 11/01/2021 8:09 AM EDT 21 mg 09- Arm Upper (Left) nicotine (NICODERM CQ) 21 mg/24 hr patch Patch Removal Transdermal, DAILY, First dose on 03/12 at 0900, Until Discontinued, Remove nicotine 21 mg/24 hr patch nicotine (NICODERM CQ) 21 mg/24 hr patch Patch Verification Transdermal, 2 TIMES DAILY, First dose o n Wed10/31/21 at 0545, Until Discontinued, Verify nicotine 21 mg/24 hr patch nicotine polacrilex (Commit) lozenge 4 m g 4 mg, Buccal, EVERY 2 HOURS PRN, Startin g on Wed11/01/21 at 0726, Until Wed11/03/21 at 1820, Smoking cessation, Do not chew or swallow. Pl jalil in mouth and allow to slowly dissolve., Routine pantoprazole EC (Protonix) tablet 40 mg Given 11/03/2021 11:26 AM EDT 40 mg 40 mg, Oral, DAILY, First dose on Wed10/30/21 at 1630, Until Discontinued, DO NOT CRUSH OR OPEN, Routine Given 11/02/2021 8:29 AM EDT 40 mg Given 11/01/2021 8:06 AM EDT 40 mg potassium chloride 10 mEq in New Bag 10/31/2021 11:44 AM EDT 10 mE q 100 mL/hr sterile water 100 mL infusion 10 mEq, Intravenous, EVERY 2 HOURS, 2 doses, First dose on Wed10/31/21 at 0930, Last dose on Wed10/31/21 at 1130, Administer over 60 Minutes, Warning Vesicant/Irritant Medication New Bag 10/31/2021 10:15 AM EDT 10 mEq 100 mL/hr sodium chloride 0.9 % (flush) (BD PosiFl ush Normal Saline 0.9) flush 10 mL 10 mL, Intravenous, DAILY PRN, Starting on Wed11/03/21 at 0734, Until Wed11/03/21 at 1820, For use when accessing Implantable Port, Rout ine sodium chloride 0.9 % (flush) (BD PosiFl ush Normal Saline 0.9) flush 10 mL 10 mL, Intravenous, DAILY PRN, Starting on Wed11/02/21 at 0817, Until Wed11/03/21 at 1820, For use when accessing Implantable Port, Rout ine sodium chloride 0.9 % (flush) (BD PosiFlush Given 11/03/2021 11:33 AM EDT 5 mLs Normal Saline 0.9) flush 5 mL 5 mL, Intravenous, 2 TIMES DAILY, First dose on Wed10/30/21 at 2100, Until Discontinued, Routine Given 11/02/2021 8:46 PM EDT 5 mLs Given 11/01/2021 9:19 PM EDT 5 mLs sodium chloride 0.9 % (flush) (BD PosiFlush Given 11/03/2021 11:33 AM EDT 5 mLs Normal Saline 0.9) flush 5 mL 5 mL, Intravenous, 2 TIMES DAILY, First dose on Wed11/03/21 at 0900, Until Discontinued, Routine sodium chloride 0.9 % (flush) (BD PosiFl ush Normal Saline 0.9) flush 5-20 mL 5-20 mL, Intravenous, EVERY 1 MIN PRN, S tarting on Wed11/03/21 at 0734, Until Wed11/03/21 at 1820, flush, Flush pertains t o all indwelling lines. Flush per protocol found in the job aid using the link prov ided on this medication record., Routine sodium chloride 0.9% infusion New Bag 11/01/2021 6:02 PM EDT 100 mL/hr 100 mL/hr 100 mL/hr, Intravenous, CONTINUOUS, Starting on Wed10/31/21 at 0830, Until Wed11/02/21 at 0927 New Bag 10/31/2021 8:41 AM EDT 100 mL/hr 100 mL/hr sodium chloride 0.9% infusion New Bag 11/03/2021 11:35 AM EDT 1,000 mLs 100 mL/hr 1,000 mL, at 100 mL/hr, Intravenous, CONTINUOUS, Starting on Wed11/03/21 at 0830, Until Wed11/03/21 at 1820, Angio/IR (Day of Procedure) tamsulosin (Flomax) capsule 0.8 mg Given 11/03/2021 11:27 AM EDT 0.8 mg 0.8 mg, Oral, DAILY, First dose on Wed10/30/21 at 2000, Until Discontinued, DO NOT CRUSH OR OPEN, Routine Given 11/02/2021 8:30 AM EDT 0.8 mg Given 11/01/2021 8:06 AM EDT 0.8 mg documented in this encounter Active and Recently Administered Medications Times are shown in EDT. Scheduled Medication Order 11/01/2021 11/02/2021 11/03/2021 atorvastatin (Lipitor) tablet 40 mg 1801 (Given - Prov ider: Manav Palacios, RN) 1641 (Given - Provider: Manav Palacios, RN) 40 mg, Oral, EVERY EVENING, First dose ( after last modification) on Wed10/31/21 at 1700, Until Discontinued, Routine insulin glargine-ygfn (Semglee) (100 uni t/mL) subcutaneous injection vial 5 Units 1301 (Given - Provid er: Haylee Christian, HENRIETTA) 5 Units, Subcutaneous, DAILY, First dose on Wed11/03/21 at 0900, Until Discontinued, Routine insulin lispro (HumaLOG;Admelog) (100 un it/mL) subcutaneous injection vial 0-8 Units 0911 (Given - Provider: Manav lujan, RN)1200 (Not Given - Provider: Manav Palacios RN - Reason: See comment - Comment: skipped lunch)1700 (Not Given - Provider: Suraj Cobb RN - Reason: Patient/family refused) 0944 (Given - Provider: Manav Palacios, HENRIETTA)1200 (Not Given - Provider: Manav Palacios RN - Reason: See comment - Comment: pt skipping lunch)1748 (Given - Provider: Manav Palacios RN) 0800 (Not Given - Provider: Katharine alba RN - Reason: See comment - Comment: pt at [place])1416 (Given - Provider: Haylee Christian, HENRIETTA) 0-8 Units, Subcutaneous, 3 TIMES DAILY W ITH MEALS, First dose on Wed10/31/21 at 1700, Until Discontinued, [employer] Give 1 unit for every 10 grams carbohydrate. Hold if not eating or if BG less than 70 mg/dL., Routine insulin lispro (HumaLOG;Admelog) (100 un it/mL) subcutaneous injection vial 1-6 Units(Linked Group 1) 0805 (Given - Provider: Manav lujan, HENRIETTA)1123 (Given - Provider: Manav Palacios, HENRIETTA)1802 (Given - Provider: Manav Palacios, HENRIETTA) 0829 (Given - Provider: Manav lujan RN)1130 (Not Given - Provider: Manav Palacios RN - Reason: Order parameters not met)1630 (Not Given - Provider: Manav Palacios RN - Reason: Order parameters not met) 0730 (Not Given - Provider: Katharine Mishra RN - Reason: See comment - Comment: pt at [place])1129 (Given - Provider: Haylee Christian, HENRIETTA) 1-6 Units, Subcutaneous, 3 TIMES DAILY B EFORE MEALS, First dose on Wed10/30/21 at 1800, Until Discontinued, CORRECTION BOLUS [1-6 Units] Moderate Sliding Scale (BG in mg/dL): Correction factor 20 (1 unit of insulin is expected to drop the glucose 20 mg/dL) BG 140 - 160 Give 1 unit BG 161 - 180 Give 2 units BG 181 - 200 Give 3 units BG 201 - 220 Give 4 units BG 221 - 240 Give 5 units BG greater wilson n 240, give 6 units and recheck BG in 2 hours. - If recheck BG is LESS than 240, give no insulin and resume schedule. - If recheck BG is GREATER than 240, give 6 units and repeat BG in 2 hours (no more than 3 times) & call for new insulin ord ers. DO NOT hold if NPO, unless specifically directed to do so by written order. Per Blood Glucose Monitoring Policy, re-check a BG of > 240 mg/dL in 2 hours., Routine lidocaine (Xylocaine) 1% (10 mg/mL) injection 10 mg (COMPLETED) 0830 (Given - Provider: Sergo Gaviria MD) 10 mg, Subcutaneous, ONCE, 1 dose, On Mo n 11/03/21 at 0830, For use in Interventional Radiology (IR) only for procedure with direct provider supervision and verbal order., Angio/IR (Intra-Procedure), Routine losartan (Cozaar) tablet 37.5 mg 0806 (Given - Provide r: Manav Palacios, HENRIETTA) 0830 (Given - Provider: Manav Palacios, HENRIETTA) 1126 ( Given - Provider: Haylee Christian, HENRIETTA) 37.5 mg, Oral, DAILY, First dose on Yanet 10/30/21 at 2000, Until Discontinued, Routine magnesium sulfate 2 g in sterile water 50 mL infusion (COMPLETED ) 1300 (New Bag - Provider: Haylee Christian RN)1500 (Stopped - Provider: Katharine Mishra RN) 2 g, Intravenous, ONCE, 1 dose, On Mon at 1245, Administer over 120 Minutes metoprolol tartrate (Lopressor) tablet 12.5 mg 0806 (G iven - Provider: Manav Palacios RN)2119 (Given - Provider: Suraj Cobb, HENRIETTA) 08 (Given - Provider: Manav Palacios RN)2045 (Given - Provider: Suraj Cobb, HENRIETTA) 1127 (Given - Provider: Haylee Christian RN) 12.5 mg, Oral, EVERY 12 HOURS SCHEDULED (2 times per day), First dose on Wed10/30/21 at 2100, Until Discontinued, Routine nicotine (Nicoderm CQ) 21 mg/24 hr patch 21 mg(Linked Group 2) 0809 (Patch Applied - Provider: Manav Palacios RN) 0833 (Patch Applied - Provider: Manav Palacios RN) 1142 (Patch Applied - Provider: Haylee Christian RN) 21 mg (1 patch), Transdermal, DAILY, Fir st dose on Wed10/30/21 at 1800, Until Discontinued, Apply new patch to nonhairy, clean, dry skin on the upper body or upper outer arm; each patch should be applied to a different site , Routine nicotine (NICODERM CQ) 21 mg/24 hr patch Patch Removal (Linked Group 2) 0900 (Patch Removed - Provider: Manav Palacios RN - Comment: from R arm) 0900 (Patch Removed - Provider: Manav Palacios RN) 0900 (Patch Removed - Provider: Haylee Christian RN) Transdermal, DAILY, First dose on 03/12 at 0900, Until Discontinued, Remove nicotine 21 mg/24 hr patch nicotine (NICODERM CQ) 21 mg/24 hr patch Patch Verific ation(Linked Group 2) 0900 (Patch (dose and location) verified - Provider: Manav Palacios RN - Comment: 21mg to R arm)2100 (Patch (dose and location) verified - Provider: Suraj Cobb RN) 0900 (Patch (dose and location) verified - Provider: Manav Palacios RN - Comment: l arm)2100 (Patch (dose and location) verified - Provider: Suraj Cobb RN) 0900 (Patch (dose and location) verified - Provider: Haylee Christian RN) Transdermal, 2 TIMES DAILY, First dose o n Wed10/31/21 at 0545, Until Discontinued, Verify nicotine 21 mg/24 hr patch pantoprazole EC (Protonix) tablet 40 mg 0806 (Given - Provider: Manav Palacios RN) 0829 (Given - Provider: Manav Palacios RN) 1126 ( Given - Provider: Haylee Christian RN) 40 mg, Oral, DAILY, First dose on 02/10 at 1630, Until Discontinued, DO NOT CRUSH OR OPEN, Routine sodium chloride 0.9 % (flush) (BD PosiFlush Normal Jesus ine 0.9) flush 5 mL 0805 (Given - Provider: Manav Palacios RN)211 (Given - Provider: Suraj Macdonald, HENRIETTA) 0829 (Not Given - Provider: Manav qiu RN - Reason: See comment - Comment: no access)2045 (Given - Provider: Suraj Cobb RN) 1133 (Given - Provider: Haylee Christian, HENRIETTA) 5 mL, Intravenous, 2 TIMES DAILY, First dose on Wed10/30/21 at 2100, Until Discontinued, Routine sodium chloride 0.9 % (flush) (BD PosiFlush Normal Saline 0.9) f lush 5 mL 1133 (Given - Provider: Haylee Christian RN) 5 mL, Intravenous, 2 TIMES DAILY, First dose on Wed11/03/21 at 0900, Until Discontinued, Routine tamsulosin (Flomax) capsule 0.8 mg 0806 (Given - Provi merrill: Manav Palacios RN) 0830 (Given - Provider: Manav Palacios RN) 1127 ( Given - Provider: Haylee Christian RN) 0.8 mg, Oral, DAILY, First dose on Yanet at 2000, Until Discontinued, DO NOT CRUSH OR OPEN, Routine Continuous Medication Order 11/01/2021 11/02/2021 11/03/2021 sodium chloride 0.9% infusion (CANCELED) 1802 (New Bag - Provider: Manav Palacios RN) 0227 (Stopped - Provider: Suraj idaz RN - Comment: no PIV access; ok per )09 (Stopped - Provider: Manav Palacios RN) 100 mL/hr, Intravenous, CONTINUOUS, Star ting on Wed10/31/21 at 0830, Until Wed11/02/21 at 0927 sodium chloride 0.9% infusion 11 35 (New Bag - Provider: Haylee Christian RN)1820 (Due: Stopped) 1,000 mL, at 100 mL/hr, Intravenous, CON TINUOUS, Starting on Wed11/03/21 at 0830, Until Wed11/03/21 at 1820, Angio/IR (Day of Procedure) PRN Medication Order 11/01/2021 11/02/2021 11/03/2021 dextrose 10% infusion(Linked Group 3) 250 mL, at 1,000 mL/hr, Intravenous, PIPER RY 30 MIN PRN, Starting on Yanet 10/30/21 at 1743, Until Wed11/03/21 at 1820, For BG 50-70 mg/dL: Oral treatment preferred: If able to drink, give 120 mL Juice or Regular (not diet) soda OR If NPO, give 15 gram glucose 40% oral gel massaged into buccal mucosa OR if unconscious or uncooperative, give 25 gram (250 mL) Dextrose 10% IV over 15 minutes per protocol O R, if no IV access, 1 mg Glucagon IM. For BG less than 50 mg/dL: Oral treatment preferred: If able to drink, give 240 mL Juice or Regular (not diet) soda OR If NPO, give 30 gram glucose 40% oral gel massaged in buccal mucosa OR if unconsci ous or uncooperative, give 25 gram (250 mL) Dextrose 10% IV over 15 minutes per protocol OR, if no IV access, 1 mg Glucagon IM. Recheck BG in 30 minutes. May re peat juice/soda, gel, dextrose or glucag on once per episode. For persistent hypoglycemia, consider longer-acting treatment for the duration of the active insulin. fentaNYL (pf) (50 mcg/mL) multi-dose injection 25-50 mcg 0829 (Given - Provider: Joelle Khalil RN)0838 (Given - Provider: Joelle Khalil, EHNRIETTA)0850 (Given - Provider: Joelle Khalil RN) 25-50 mcg, Intravenous, EVERY 3 MIN PRN, Starting on Wed11/03/21 at 0734, Until Wed11/03/21 at 1820, Pain, per unit protocol, - Start dose 50 mcg (reduce dose to 25 mcg if history of sedation sensitivit y). - Titration dose 25-50 mcg IV, (base d on patient response) every 3 minutes PRN, to maintain procedural pain less than 2 per pain Scale. Maximum dose: 50 mcg/dose, 250 mcg/hour For use in Interventio nal Radiology (IR) only for procedural s edation with direct provider supervision and verbal order., Angio/IR (Intra-Procedure), Routine flumazeniL (Romazicon) (0.1 mg/mL) injection 0.2 mg 0.2 mg, Intravenous, EVERY 2 MIN PRN, 5 doses, Starting on Wed11/03/21 at 0734, Until Wed11/03/21 at 1820, for respiratory rate less than 8, SpO2 less than 90% despite supplement O2, or patient unable t o arouse., Give every 2 minutes IV PRN f or total of 5 doses for respiratory rate less than 8, SpO2 less than 90% despite supplement O2, or patient unable to arouse. , Angio/IR (Intra-Procedure), Routine glucagon (Glucagen) (1 mg/mL) injection solution 1 mg(Linked Arturo up 3) 1 mg, Intramuscular, EVERY 30 MIN PRN, S tarting on Yanet 10/30/21 at 1743, Until Wed11/03/21 at 1820, Low blood sugar, For BG 50-70 mg/dL: Oral treatment preferred: If able to drink, give 120 mL Juice o r Regular (not diet) soda OR If NPO, giv e 15 gram glucose 40% oral gel massaged into buccal mucosa OR if unconscious or uncooperative, give 25 gram (250 mL) Dextrose 10% IV over 15 minutes per protocol OR, if no IV access, 1 mg Glucagon IM. * * For BG less than 50 mg/dL: Oral treatment preferred: If able to drink, give 240 mL Juice or Regular (not diet) soda OR If NPO, give 30 gram glucose 40% oral gel massaged in buccal mucosa OR if unconsc ious or uncooperative, give 25 gram (250 mL) Dextrose 10% IV over 15 minutes per protocol OR, if no IV access, 1 mg Glucagon IM. Recheck BG in 30 minutes. May r epeat juice/soda, gel, dextrose or gluca melina once per episode. For persistent hypoglycemia, consider longer-acting treatment for the duration of the active insulin., Routine glucose (Glutose) 40% oral geL(Linked Group 3) 15-30 g of glucose, Buccal, EVERY 30 MIN PRN, Starting on Yanet 10/30/21 at 1743, Until Wed11/03/21 at 1820, Low blood sugar, For BG 50-70 mg/dL: Oral treatment preferred: If able to drink, give 120 mL Juice or Regular (not diet) soda OR If N PO, give 15 gram glucose 40% oral gel massaged into buccal mucosa OR if unconscious or uncooperative, give 25 gram (250 mL) Dextrose 10% IV over 15 minutes per pr otocol OR, if no IV access, 1 mg Glucago n IM. For BG less than 50 mg/dL: Oral treatment preferred: If able to drink, give 240 mL Juice or Regular (not diet) soda OR If NPO, give 30 gram glucose 40% o ral gel massaged in buccal mucosa OR if unconscious or uncooperative, give 25 gram (250 mL) Dextrose 10% IV over 15 minutes per protocol OR, if no IV access, 1 mg Glucagon IM. Recheck BG in 30 minutes . May repeat juice/soda, gel, dextrose o r glucagon once per episode. For persistent hypoglycemia, consider longer-acting treatment for the duration of the active insulin. 1 tube of Glutose-15 contain s 15 grams of glucose (net weight of tube = 37.5 grams.), Routin e heparin (pf) (porcine) (100 units/mL) flush 5 mL syringe 500 Uni ts 500 Units, Intercatheter, DAILY PRN, 1 d ose, Starting on Wed11/03/21 at 1514, Until Wed11/03/21 at 1820, Line Care, Terminal Flush for de-accessing of Implantable Port, Routine heparin (pf) (porcine) (100 units/mL) flush 5 mL syringe 500 Uni ts 500 Units (5 mL), Intravenous, DAILY PRN , 1 dose, Starting on Wed11/03/21 at 1517, Until Wed11/03/21 at 1820, Line Care, Terminal Flush for de-accessing of Implantable Port, Routine lidocaine (Xylocaine) 1% (10 mg/mL) injection 3 mg 3 mg (0.3 mL), Subcutaneous, ONCE PRN, 1 dose, Starting on Yanet 10/30/21 at 1609, Until Wed11/03/21 at 1820, for discomfort with PIV insertion, Routine lidocaine (Xylocaine) 1% (10 mg/mL) injection 3 mg 3 mg (0.3 mL), Subcutaneous, ONCE PRN, 1 dose, Starting on Wed11/03/21 at 0734, Until Wed11/03/21 at 1820, for discomfort with PIV insertion, Routine midazolam (pf) (Versed) (1 mg/mL) multi-dose injection 0.5-1 mg 0829 (Given - Provider: Joelle Khalil RN)0839 (Given - Provider: Joelle Khalil RN) 0.5-1 mg, Intravenous, EVERY 3 MIN PRN, Starting on Wed11/03/21 at 0734, Until Wed11/03/21 at 1820, Sleep, - Start dose; 1 mg (Reduce dose to 0.5 mg if history of sedation sensitivity). - Titration dose : 0.5 mg - 1 mg (based on patient respon se) every 3 minutes PRN to obtain RASS score of -3. Maximum dose: 1 mg per dose, 5 mg/hour. For use in Interventional Radiology (IR) only for procedural sedation with direct provider supervision and milagros bal order., Angio/IR (Intra-Procedure), Routine naloxone (NARCAN) injection 1 mg/mL 0.1 mg 0.1 mg, Intravenous, EVERY 2 MIN PRN, St arting on Wed11/03/21 at 0734, Until Wed11/03/21 at 1820, Opioid Reversal, Give every 2 minutes PRN for opioid reversal, for respiratory rate less than 8 per kenia te, SpO2 less than 90% despite supplemen t O2, or patient unable to arouse. Maximum dose of 0.8 mg intra-procedure., Angio/IR (Intra-Procedure), Routine nicotine polacrilex (Commit) lozenge 4 mg 4 mg, Buccal, EVERY 2 HOURS PRN, Startin g on Wed11/01/21 at 0726, Until Wed11/03/21 at 1820, Smoking cessation, Do not chew or swallow. Place in mouth and allow to slowly dissolve., Routine sodium chloride 0.9 % (flush) (BD PosiFlush Normal Saline 0.9) f lush 10 mL 10 mL, Intravenous, DAILY PRN, Starting on Wed11/03/21 at 0734, Until Wed11/03/21 at 1820, For use when accessing Implantable Port, Routine sodium chloride 0.9 % (flush) (BD PosiFlush Normal Saline 0.9) f lush 10 mL 10 mL, Intravenous, DAILY PRN, Starting on Wed11/02/21 at 0817, Until Wed11/03/21 at 1820, For use when accessing Implantable Port, Routine sodium chloride 0.9 % (flush) (BD PosiFlush Normal Saline 0.9) f lush 5-20 mL 5-20 mL, Intravenous, EVERY 1 MIN PRN, S tarting on Wed10/30/21 at 1609, Until Wed11/03/21 at 1820, flush, Flush pertains to all indwelling lines. Flush per protocol found in the job aid using the link provided on this medication record., Routine sodium chloride 0.9 % (flush) (BD PosiFlush Normal Saline 0.9) f lush 5-20 mL 5-20 mL, Intravenous, EVERY 1 MIN PRN, S tarting on Wed11/03/21 at 0734, Until Wed11/03/21 at 1820, flush, Flush pertains to all indwelling lines. Flush per protocol found in the job aid using the link provided on this medication record., Routine Linked Groups Order Group 1: POCT Fingerstick Glucose (CANCELED) Routine, 4 TIMES DAILY BEFORE MEALS & AT BEDTIME, First occurrence on Wed10/30/21 at 2200, Until Specified
Consider choosing FOUR TIMES A DAY BEFORE MEALS AND AT BEDTIME as frequency fo r: Patients who have a good hypoglycemia awareness: -Patients who are eating meals during the day and sleeping at night -Patient who are otherwise stable And insulin lispro (HumaLOG;Admelog) (100 unit/mL) subcutaneous injection vial 1-6 UnitsJump to med 1-6 Units, Subcutaneous, 3 TIMES DAILY B EFORE MEALS, First dose on Wed10/30/21 at 1800, Until Discontinued
CORRECTION BOLUS [1-6 Units] Moderate Sliding Scale (BG in mg/dL): Correc tion factor 20 (1 unit of insulin is exp ected to drop the glucose 20 mg/dL) BG 140 - 160 Give 1 unit BG 161 - 180 Give 2 units BG 181 - 200 Give 3 units &nbsp ;BG 201 - 220 Give 4 units BG 221 - 240 Give 5 units BG greater than 240, give 6 units and recheck BG in 2 hours. - If recheck BG is LESS than 240, give no insulin and resu me schedule. - If recheck BG is GR EATER than 240, give 6 units and repeat BG in 2 hours (no more than 3 times) & call for new insulin orders. DO NOT hold if NPO, un less specifically directed to do so by zully cerna order. Per Blood Glucose Monitoring Policy, re-check a BG of > 240 mg/dL in 2 hours.
Routine Group 2: nicotine (Nicoderm CQ) 21 mg/24 hr patch 21 mgJump to med 21 mg (1 patch), Transdermal, DAILY, Fir st dose on Wed10/30/21 at 1800, Until Discontinued
Apply new patch to nonhairy, clean, dry skin on the upper body or upper outer arm; each patch should be applied to a different site
Routine And nicotine (NICODERM CQ) 21 mg/24 hr patch Patch VerificationJump to med Transdermal, 2 TIMES DAILY, First dose o n Wed10/31/21 at 0545, Until Discontinued
Verify nicotine 21 mg/24 hr patch
And nicotine (NICODERM CQ) 21 mg/24 hr patch Patch RemovalJump to med Transdermal, DAILY, First dose on 03/12 at 0900, Until Discontinued
Remove nicotine 21 mg/24 hr patch
Group 3: glucose (Glutose) 40% oral geLJump to med 15-30 g of glucose, Buccal, EVERY 30 MIN PRN, Starting on Wed10/30/21 at 1743, Until Wed11/03/21 at 1820, Low blood sugar
For BG 50-70 mg/dL: &nbs p;Oral treatment preferred: If able to d rink, give 120 mL Juice or Regular (not diet) soda OR If NPO, give 15 gram glucose 40% oral gel massaged into buccal mucosa OR if unconscious or uncooperative, gi ve 25 gram (250 mL) Dextrose 10% IV over 15 minutes per protocol OR, if no IV access, 1 mg Glucagon IM. For BG less than 50 mg/dL: Oral treatment pre ferred: If able to drink, give 240 mL Ju ice or Regular (not diet) soda OR If NPO, give 30 gram glucose 40% oral gel massaged in buccal mucosa OR if unconscious or uncooperative, give 25 gram (250 mL) De xtrose 10% IV over 15 minutes per protoc ol OR, if no IV access, 1 mg Glucagon IM. Recheck BG in 30 minutes. May repeat juice/soda, gel, dextrose or glucagon once per episode.&nb sp; For persistent hypoglycemia, consider longer-acting treatment for the duration of the active insulin. 1 tube of Glutose-15 contains 15 grams of glucose (net weight of tube = 37.5 grams.)
Routine Or dextrose 10% infusionJump to med 250 mL, at 1,000 mL/hr, Intravenous, PIPER RY 30 MIN PRN, Starting on Yanet 10/30/21 at 1743, Until 11/03/21 at 1820
For BG 50-70 mg/dL: Oral t reatment preferred: If able to drink, gi ve 120 mL Juice or Regular (not diet) soda OR If NPO, give 15 gram glucose 40% oral gel massaged into buccal mucosa OR if unconscious or uncooperative, give 25 gr am (250 mL) Dextrose 10% IV over 15 kenia jaspal per protocol OR, if no IV access, 1 mg Glucagon IM. For BG less than 50 mg/dL: Oral treatment preferred: If able to drink, give 240 mL Juice or R egular (not diet) soda OR If NPO, give 30 gram glucose 40% oral gel massaged in buccal mucosa OR if unconscious or uncooperative, give 25 gram (250 mL) Dextrose 1 0% IV over 15 minutes per protocol OR, i f no IV access, 1 mg Glucagon IM. Recheck BG in 30 minutes. May repeat juice/soda, gel, dextrose or glucagon once per episode. & nbsp; For persistent hypoglycemia, con road oiler longer-acting treatment for the duration of the active insulin.
Or glucagon (Glucagen) (1 mg/mL) injection solution 1 mgJump to med 1 mg, Intramuscular, EVERY 30 MIN PRN, S tarting on Yanet 10/30/21 at 1743, Until 11/03/21 at 1820, Low blood sugar
For BG 50-70 mg/dL: Oral treatment preferred: If able to drink, g arturo 120 mL Juice or Regular (not diet) soda OR If NPO, give 15 gram glucose 40% oral gel massaged into buccal mucosa OR if unconscious or uncooperative, give 25 g enedina (250 mL) Dextrose 10% IV over 15 min utes per protocol OR, if no IV access, 1 mg Glucagon IM. For BG less than 50 mg/dL: Oral treatment preferred: If able to drink, give 240 mL Juice or Regular (not diet) soda OR If NPO, give 30 gram glucose 40% oral gel massaged in buccal mucosa OR if unconscious or uncooperative, give 25 gram (250 mL) Dextrose 10% IV over 15 minutes per protocol OR, if no IV access, 1 mg Glucagon IM. Recheck BG in 30 minutes. May repeat juice/soda, gel, dextrose or glucagon once per episode. &amp ;nbsp; For persistent hypoglycemia, co nsider longer-acting treatment for the duration of the active insulin.
Routine documented in this encounter Care Teams Manager Market Development Relationship Specialty Start Date End Date William Wade PA PCP - General Family Medicine 08/31/[address] [place] [address] [place] [address] documented as of this encounter
--- OUTSIDE RECORDS SUMMARY | 2021-11-07 00:53 | XMS_ITS | Encounter Summary ---
:1955 Author Organization [facility] [place] [address] Care Team Providers Name Role Phone William Wade Primary Care Provider Reason for Referral Diagnostic Test (Emergency) - Closed Specialty Diagnoses / Procedures Referred By Contact Refer red To Contact Cardiology Diagnoses Pre-operative cardiovascular examination, high risk surgery Malignant neoplasm of head of pancreas Multiple pulmonary nodules Reyes Luther, [facility] Non-Inv Card Lab Procedures Echocardiogram Transthoracic MD [facility] [place] [address] [place] [address] Referral ID Status Reason Start Date Expiration Date Visits V isits Requested Authorized [id number] Closed Specialty 10/27/2021 10/27/2022 1 1 Service Requested Reason for Visit Auth/Cert Specialty Diagnoses / Procedures Referred By Contact Refer red To Contact Diagnoses 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d loss (chronic) Melena anemia melena Reyes Avilez MD [facility] Procedures PRO UPPER GI ENDOSCOPY, DIAGNOSTIC PRO UPPER GI ENDOSCOPY, BIOPSY PRO UP GI ENDOSCOPY, REMV TUMOR, SNARE PRO ANESTH, UGI ENDOSCOPY NOS EGD, UPPER GI ENDOSCOPY [facility] [place] [address] Referral ID Status Reason Start Date Expiration Date Visits Requ ested Visits Authorized [id number] 1 1 Encounter Details Date Type Department Care Team Description 10/30/2021 Hospital Encounter Non-Invasive [place], Pre-opera tive cardiovascular examination, high risk surgery; Cardiology Lab Kaylee Carmichael Malignant neoplasm of head of pancreas; [facility] pulmonary [facility] [address] SURGERY [place], [place] [id number] [phone] Social History Tobacco Use Types Packs/Day Years [...] place to sleep or slept in a long-term (including now)? Sex Assigned at Date Recorded Not on file documented as of this encounter Medications at Time of Discharge Medication Sig Dispensed Refills Start Date End Date losartan (Cozaar) 25 mg Take 1.5 tablets by 90 tablet 3 Tablet mouth daily. tamsulosin (Flomax) 0.4 Take 2 capsules by 90 tablet 3 10/20 mg Capsule mouth daily. pantoprazole EC Take 1 tablet by 90 tablet 3 10/28/2021 (Protonix) 40 mg Tablet, mouth daily. Delayed Release (E.C.)Indications: Ulcerated, duodenum metoprolol succinate XL Take by mouth daily. 0 (Toprol-XL) 25 mg Tablet Sustained Release 24 hr aspirin EC 81 mg Tablet, Take 81 mg by mouth 0 Delayed Release (E.C.) daily. atorvastatin (LIPITOR) 80 40 mg. 0 09/21/2018 mg Tablet metFORMIN (GLUCOPHAGE) 2 times daily. 0 9 850 mg Tablet nitroGLYcerin (NITROSTAT) Place under the 0 07/25 0.4 mg SL tablet tongue. tamsulosin (Flomax) 0.4 Take 0.4 mg by mouth 0 11/03/2021 mg Capsule daily. losartan (Cozaar) 25 mg Take 25 mg by mouth 0 11/03/2021 Tablet daily. documented as of this encounter Plan of Treatment Upcoming Encounters Date Type Specialty Care Team Description 11/07/2021 Office Visit Hematology and Oncology Eric Streeter MD [facility] ONCOLOGY [place], [place] [address] (Luz fofana) 11/07/2021 Infusion Hematology and Oncology 11/07/2021 Office Visit Hematology and Oncology Irena Hinojosa RD [facility] DRIVE HEMATOLOGY AND O NCOLOG[place], [place] 0[address] (Luz rk) 11/21/2021 Office Visit Hematology and Oncology Eric Streeter MD [facility] ONCOLOGY [place], [place] [address] (Luz fofana) 11/21/2021 Infusion Hematology and Oncology 12/05/2021 Office Visit Hematology and Oncology Eric Streeter MD [facility] ONCOLOGY [place], [place] [address] (Wo rk) 12/05/2021 Infusion Hematology and Oncology 12/19/2021 Office Visit Hematology and Oncology Eric Streeter MD [facility] ONCOLOGY [place], [place] [address] (Wo rk) 12/19/2021 Infusion Hematology and Oncology documented as of this encounter Procedures Procedure Name Priority Date/Time Associated Diagnosis Comme nts ECHOCARDIOGRAM STAT 10/30/2021 1:36 Pre-operative Results f or this COMPLETE PM EDT cardiovascular procedure are in examination, high the result s risk surgery section. Malignant neoplasm of head of pancreas Multiple pulmonary nodules documented in this encounter Results ECHOCARDIOGRAM COMPLETE (10/30/2021 1:36 PM EDT) P [...] 1955 ? Height: 163 cm ? Account: [id number] Age: 66 yrs ? Weight: 51 kg Gender: Male ?BSA: 1.5 m2 Ordering Physician: REYES LUTHER Referring Physician: REYES LUTHER Performed By: JEAN MARIE Oseguera Reason For Study: Pre Op Exam Location: [facility]. Interpretation Summary 1. The left ventricle is normal in [facility] er size and wall thickness. Global LV [...] No prior study available for comparison. Procedure Complete-00760. 3D - 67460. Left ventric ular strain - 0399T. Satisfactory [...] Fraction ?2D Measurem ents ? Volumes EF ()_phl: 54.0 % ? IVSd: 0.54 cm ?LA [...] 46.1 ml/m2 Doppler ?3D/Str ain/TomTec TR max finesse: 232.1 cm/sec ??LV GLS Endo P eak Avg (): - RVSP(TR): 24.6 mmHg ? 16.3 % MV E max finesse: 77.1 cm/sec MV A max finesse: 79.8 cm/sec MV E/A: 0.97 MV dec time: 0.15 sec Lat Peak E' Finesse: 11.6 cm/sec E/ e' (lat): 6.6 Med Peak E' Finesse: 6.1 cm/sec E/e' (med): 12.7 E/e' Average: [...] different from the original. Echocardiogram Report Name: SHERRI JOHN Panda Study Date: 10/30 12:35 PMBP: 146/54 mmHg Patient Location: [facility] 0 : 1955 Height: 163 cm Account: [id number] Age: 66 yrs Weight: 51 kg Gender: Male BSA: 1.5 m2 Ordering Physician: REYES LUTHER Referring Physician: REYES LUTHER Performed By: JEAN MARIE Oseguera Reason For Study: Pre Op Exam Location: [facility]. Interpretation Summary 1. The left ventricle is [...] No prior study available for comparison. Procedure Complete-16169. 3D - 52985. Left ventric ular strain - 0399T. Satisfactory [...] SI(LVOT): 46.1 ml/m2 Doppler 3D/Strain/TomTec TR max finesse: 232.1 cm/sec LV GLS Endo Pea k Avg (): - RVSP(TR): 24.6 mmHg 16.3 % MV E max finesse: 77.1 cm/sec MV A max finesse: 79.8 cm/sec MV E/A: 0.97 MV dec time: 0.15 sec Lat Peak E' Finesse: 11.6 cm/sec E/ e' (lat): 6.6 Med Peak E' Finesse: 6.1 cm/sec E/e' (med): 12.7 E/e' Average: 9.6 AI P1/2t: 355.0 msec I WMSI = 1.25 % Normal = 75 Segments Size X - Cannot 2 - 4 - 1-2 small Interpret 1 - Normal Hypokinetic 3 - Thor netic Dyskinetic 3-5 moderate 5 - 6-14 large Aneurysmal 15-16 diffuse Reyes Luther MD ECHO ORDERABLES Performing Organization Address City/State/ZIP Code Phon e Number [facility] documented in this encounter Visit Diagnoses Diagnosis Pre-operative cardiovascular examination , high risk surgery Pre-operative cardiovascular examination Malignant neoplasm of head of pancreas Multiple pulmonary nodules Other nonspecific abnormal finding of moe ng field Malignant neoplasm of head of pancreas documented in this encounter Care Teams Dietitian Helper Relationship Specialty Start Date End Date William Wade PA PCP - General Family Medicine 08/31/[address] [place] [address] [place] [address] documented as of this encounter
--- OUTSIDE RECORDS SUMMARY | 2021-11-07 00:53 | XMS_ITS | Encounter Summary ---
:1955 Author Organization [facility] [place] [address] Care Team Providers Name Role Phone William Wade Primary Care Provider Reason for Visit Reason Onset Date Comments Follow-up 10/30/2021 Encounter Details Date Type Department Care Team Description 10/30/2021 Telephone Hematology and Oncol vanessa at [facility] Fahad Giron RN Follow-up [facility] [place] [phone] Social History Tobacco Use Types Packs/Day Years [...] place to sleep or slept in a longterm (including now)? Sex Assigned at Date Recorded Not on file documented as of this encounter Miscellaneous Notes Telephone Encounter - Fahad Giron RN - 10/30/2021 8:30 AM EDTSummary: Follow-up Provided a follow-up call to check on him. Patient was not in acute distress and reported feeling better. As recommended by Dr. Streeter, he went to the ED last night for a blood transfusion for his worsening anemia. Patient mentioned receiving 1 bag of PRBCs. Of note, this morning he noticed pronounced bleeding with his stool which alarmed him. It wasn't albertina red, but, more darker red in color. He wasn't sure about the amount because he flushed it. He denied any associated pain in abdomen, nausea, vomiting, fever, or chills. Patient is scheduled for an urgent endoscopy today. He is reminded of the appointment and he has already arranged a ride for the procedure. Patient will call the clinic for any questions or clarification in the interim. documented in this encounter Plan of Treatment Upcoming Encounters Date Type Specialty Care Team Description 11/07/2021 Office Visit Hematology and Oncology rEic Streeter MD [facility] ONCOLOGY [place], [place] [address] (Wo rk) 11/07/2021 Infusion Hematology and Oncology 11/07/2021 Office Visit Hematology and Oncology Irena Hinojosa RD [facility] HEMATOLOGY AND O NCOLOGY [place], [place] [address] (Wo rk) 11/21/2021 Office Visit Hematology and Oncology Eric Streeter MD [facility] ONCOLOGY [place], [place] [address] (Wo rk) 11/21/2021 Infusion Hematology and Oncology 12/05/2021 Office Visit Hematology and Oncology Eric Streeter MD [facility] ONCOLOGY [place], [place] [address] (Wo rk) 12/05/2021 Infusion Hematology and Oncology 12/19/2021 Office Visit Hematology and Oncology Eric Streeter MD [facility] ONCOLOGY [place], [place] [address] (Wo rk) 12/19/2021 Infusion Hematology and Oncology documented as of this encounter Visit Diagnoses Not on filedocumented in this encounter Care Teams Ciaio Lumite Injector Relationship Specialty Start Date End Date William Wade PA PCP - General Family Medicine 08/31/[address] [place] [address] [place] [address] documented as of this encounter
--- OUTSIDE RECORDS SUMMARY | 2021-11-07 00:53 | XMS_ITS | Encounter Summary ---
:1955 Author Organization [facility] Address [address] [place] [address] Care Team Providers Name Role Phone William Wade Primary Care Provider Encounter Details Date Type Department Care Team Description 10/30/2021 Orders Only Gastroenterology at [facility] Reyes Avilez Melena [facility] [place] [address] [facility] [phone] DR GASTROENTEROLOGY [place], [place] [address] (Wo rk) Social History Tobacco Use Types Packs/Day Years [...] Hematology and Oncology Eric Streeter MD [facility] ONCOLOGY [place], [place] [address] (Wo rk) 11/07/2021 Infusion Hematology and Oncology 11/07/2021 Office Visit Hematology and Oncology Irena Hinojosa RD [facility] DR[address] HEMATOLOGY [place], [place] [address] (Wo rk) 11/21/2021 Office Visit Hematology and Oncology Eric Streeter MD [facility] ONCOLOGY [place], [place] [address] (Wo rk) 11/21/2021 Infusion Hematology and Oncology 12/05/2021 Office Visit Hematology and Oncology Eric Streeter MD [facility] ONCOLOGY [place], [place] [address] (Wo rk) 12/05/2021 Infusion Hematology and Oncology 12/19/2021 Office Visit Hematology and Oncology Eric Streeter MD [facility] ONCOLOGY [place], [place] [address] (Wo rk) 12/19/2021 Infusion Hematology and Oncology Scheduled Orders Name Type Priority Associated Diagnoses Order S chedule CBC (with Diff) Lab Routine Melena Expected: , Expires: 2022 CMP w/fasting Glucose Lab Routine Melena Expect ed: 10/30/2021, Expires: 2022 documented as of this encounter Visit Diagnoses Diagnosis Melena Blood in stool Malignant neoplasm of head of pancreas documented in this encounter Care Teams Literary Writer Relationship Specialty Start Date End Date William Wade PA PCP - General Family Medicine 08/31/[address] [place] [address] [place] [address] documented as of this encounter
--- OUTSIDE RECORDS SUMMARY | 2021-11-07 00:53 | XMS_ITS | Encounter Summary ---
:1955 Author Organization [facility] [place] [address] Care Team Providers Name Role Phone William Wade Primary Care Provider Reason for Visit Auth/Cert Specialty Diagnoses / Procedures Referred By Contact Refer red To Contact Diagnoses 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d loss (chronic) Melena anemia melena Reyes Avilez MD [facility] Procedures PRO UPPER GI ENDOSCOPY, DIAGNOSTIC PRO UPPER GI ENDOSCOPY, BIOPSY PRO UP GI ENDOSCOPY, REMV TUMOR, SNARE PRO ANESTH, UGI ENDOSCOPY NOS EGD, UPPER GI ENDOSCOPY [facility] GASTROENTEROLOGY [place] [id number] Referral ID Status Reason Start Date Expiration Date Visits Requ ested Visits Authorized [id number] 1 1 Encounter Details Date Type Department Care Team Description 10/30/2021 Anesthesia Event [place] [facility] [place] Beny Gomez MD [facility] [place] [address] [facility] Mónica Currie MD [facility] [place] [address] [place] [address] Anesthesia Record Procedure Summary Procedure Name Responsible Anesthesia Start Anesthesia Stop Time Anesthesiologist Time EGD, W CONTROL OF Beny Gomez MD 10/30/21 1444 10/30/21 1516 BLEEDING, ANY METHOD (N/A Trunk) Events Date Time Event Comment 10/30/2021 1209 1444 AN Verify 1444 Start 1444 An Start Data 1448 An Induction 1449 Anesthesia Ready 1516 an stop data 1516 Recovery or ICU Handoff Patient care was transferred to the destination unit staff after review of the patient's medica l history, current anesthetic/surgi nathan status and plan, according to the Provider Handoff Checklist. 1516 Stop Name Total Propofol 50 mg Propofol INF 194.61 mg lactated ringers infusion 0 mL Agents Name O2 Air N2O O2 Auxiliary Flowmeter 1 Blood No blood administrations on file. Lines, Drains, and Airways Type Details Placement Removal Incision 10/24/18; 1507; hip; 10/24/18 1507 by (bmbx) Graceila Paulino RN Incision 10/17/21; 1100; Right; 10/17/21 1100 by chest Anjali Aguilar RN Incision 10/17/21; 1124; Right; 10/17/21 1124 by lower quadrant; Anjali Aguilar, laparoscopic puncture RN Incision 10/17/21; 1137; Left; 10/17/21 1137 by lower quadrant; Anjali Aguilar, laparoscopic puncture RN Implanted Port - 10/17/21; 1138; 10/17/21 1138 by Single Lumen infraclavicular fossa, Anjali Aguilar, (non-apheresis) right; power injectable RN port; superior vena cava PIV 10/30/21; 1407; median 10/30/21 1407 by 11/02/21 0115 by vein (underside of arm), Mine Shapr RN Axlyn Muller, right; [id number] HENRIETTA Ruelas catheter system; 22 gauge; CHARLOTTE RN; distraction; 0; other (see comments) (leaking at insertion site); 11/02/21; 0115 documented in this encounter Social History Tobacco Use Types Packs/Day Years [...] pay for the very basics like Not perla kohler hard 10/21/2021 food, housing, medical care, and [...] place to sleep or slept in a m[facility]p (including now)? Sex Assigned at Date Recorded Not on file documented as of this encounter OR Notes Anesthesia Postprocedure Evaluation - Beny Gomez MD - 11/04/2021 12:10 PM EDT Department of Anesthesiology Post-procedure Note Patient: Jeff Daurte Procedure Summary Date: 10/30/21 Room / Location: [facility] ENDO 6 / [facility] ENDOSCOPY Anesthesia Start: 1444 Anesthesia Stop: 1516 Procedure: EGD, W CONTROL OF BLEEDING, ANY METHOD (N/A Trunk) Diagnosis: Anemia due to chronic blood loss (anemia melena) Surgeons: Reyes Avilez MD Responsible Provider: Beny Gomez MD Anesthesia Type: general ASA Status: 3 All Anesthesia Providers: Anesthesiologist: Beny Gomez MD CULLET WASHER: Stacey Oneill CRNA Vitals Value Taken Time BP 161/58 10/30/21 1620 Temp Pulse Resp 20 10/30/21 1620 SpO2 99 % 10/30/21 1620 Pain Level 0 10/30/21 1550 Patient Location: PACU/SDP Level of Consciousness: Awake and Alert Pain Management: Satisfactory Analgesia PONV: None Cardiovascular Status: At Baseline and Hemodynamically Stable Respiratory Status: At Baseline and Room Air Postoperative Fluid Status: Intravascular EUvolemia Possible Anesthetic Complications: NONE apparent at time of evaluation Final Primary Anesthesia Type: MAC (The anesthetic type performed was the same as planned.) Comments: Anesthesia Preprocedure Evaluation - Beny Gomez MD - 10/30/2021 12:01 PM EDT Pre-Anesthesia Evaluation for: Jeff Duarte a 66 y.o. male. Procedure(s): EGD, UPPER GI ENDOSCOPY Patient Active Problem List Diagnosis Date Noted ??? Diabetes mellitus 10/14/2021 ??? Hypertension 10/14/2021 [...] DIAGNOSTIC performed by Sergey Cook MD at [facility] OSC ??? PRO ENDOSCOPIC US EXAM, ESOPH N/A 06/19/2021 UPPER EUS- ENDOSCOPIC ULTRASOUND performed by Gabriel Hilario MD at [facility] ENDOSCOPY ??? PRO ENDOSCOPIC US EXAM, ESOPH N/A 10/07/2021 UPPER EUS- ENDOSCOPIC ULTRASOUND performed by Humberto Dumont MD at [facility] ENDOSCOPY ??? PRO ERCP BALLOON DILATATION BILIARY/PANCREATIC DUCT OR AMPULLA EA DUCT 10/07/2021 ERCP, W BALLOON DILATION OF BILIARY/PANCREATIC DUCT performed by Humberto Dumont MD at [facility] ENDOSCOPY ??? PRO ERCP STENT PLACEMENT BILIARY OR PANCREATIC DUCT 10/07/2021 ERCP, W PLCMNT ENDOSCOPIC STENT BILIARY OR PANCREATIC DUCT performed by Humberto Dumont MD at [facility] ENDOSCOPY ??? PRO ERCP, SPHINCTEROTOMY N/A 10/07/2021 ERCP W/SPHINCTEROTOMY/PAPILLOTOMY performed by Humberto Dumont MD at [facility] ENDOSCOPY ??? PRO FINE NEEDLE ASPIRATION BX W/US GDN 1ST LESION 10/07/2021 FINE NEEDLE ASPIRATION BIOPSY, INC US GUIDANCE; FIRST LESION performed by Humberto Dumont MD at [facility] ENDOSCOPY ??? PRO INSERT TUNNELED CV CATH W SUBQ PORT, AGE 4 YRS OR OLDER N/A 10/17/2021 NAKITA\SILVIA.CATHETER,TUNNELED, WITH SQ PORT OR PUMP OVER 5YR (WRVU 6.04) performed by Jordan Stevens MD at [facility] OSC ??? PRO LAP, DX SURGICAL ABD W/BIOPSY N/A 10/17/2021 LAPAROSCOPY,SURGICAL,WITH BIOPSY, SINGLE OR MULTIPLE (WRVU 5.44) performed by Scooby Stevens MD at [facility] OSC ??? PRO UPGI ENDOSCOPY W/US FN BX 10/07/2021 EGD, W US GUIDED FINE NEEDLE ASPIRATION/BIOPSY performed by Humberto Dumont MD at [facility] ENDOSCOPY Social History Tobacco Use ??? Smoking status: Current Every Day Smoker Packs/day: 0.50 Types: Cigarettes ??? Smokeless tobacco: Never Used ??? Tobacco comment: knows he will have to quit Substance Use Topics ??? Alcohol use: Yes Comment: about 3 times a year Social History Substance and Sexual Activity Drug Use Never No Known Allergies Medications: MAR and/or home medications have been reviewed. Physical Exam: Preprocedure Vitals Current as of 10/30/21 1201 No BP, pulse, respiration, SpO2, or temperature recorded. Height: Weight: BMI: IBW: Airway Assessment: Mallampati: II TM distance: >3 FB Neck ROM: full Cardiovascular Assessment: Rhythm: regular Rate: normal Pulmonary Assessment: unlabored breathing Dental Assessment: (+) upper dentures Misc Assessment: IV access: Peripheral line Last Filed Perioperative Cognitive Screening None Anesthesia Plan: ASA 3 general, with a(n) intravenous induction 66 yo M s/f EGD to evaluate for anemia PMHx: HTN (losartan, metoprolol), HLD (statin), GERD (omeprazole), DM (metformin), smoker, pancreatic cancer here for laparoscopy with biopsy. Allergy: No Known Allergies Region - Other Informed Consent: Anesthetic plan and risks discussed with patient. Plan discussed with CULLET WASHER. Anesthesia Screening documented in this encounter Plan of Treatment Upcoming Encounters Date Type Specialty Care Team Description 11/07/2021 Office Visit Hematology and Oncology Eric Streeter MD [facility] ONCOLOGY [place], [place] [address] (Wo rk) 11/07/2021 Infusion Hematology and Oncology 11/07/2021 Office Visit Hematology and Oncology Irena Hinojosa RD [facility] DRIVE [place]OLOGY [place], [place] [address] (Wo rk) 11/21/2021 Office Visit Hematology and Oncology Eric Streeter MD [facility] ONCOLOGY [place], [place] [address] (Wo rk) 11/21/2021 Infusion Hematology and Oncology 12/05/2021 Office Visit Hematology and Oncology Eric Streeter MD [facility] ONCOLOGY [place], [place] [address] (Wo rk) 12/05/2021 Infusion Hematology and Oncology 12/19/2021 Office Visit Hematology and Oncology Eric Streeter MD [facility] ONCOLOGY [place], [place] [address] (Wo rk) 12/19/2021 Infusion Hematology and Oncology documented as of this encounter Visit Diagnoses Not on filedocumented in this encounter Administered Medications Inactive Administered Medications - up to 3 most recent administrations Medication Order MAR Action Action Date Dose Rate Site lactated ringers infusion New Bag 10/30/2021 11:16 PM 100 mL/hr 100 mL/hr 100 mL/hr, Intravenous, EDT CONTINUOUS, Starting on Wed10/30/21 at 1400, Until Wed10/31/21 at 0730 Rate/Dose Change 10/30/2021 3:14 PM EDT 400 mL/hr New Bag 10/30/2021 2:44 PM EDT 100 mL/hr propofoL (Diprivan) (10 mg/mL) New Bag 10/30/2021 2:48 PM 150 mcg/kg/min 44.91 mL/hr infusion EDT Intravenous, CONTINUOUS PRN, Starting on Yanet 10/30/21 at 1448, Until Yanet 10/30/21 at 1516, Anesthesia Intra-op, Routine propofoL (Diprivan) 10 mg/mL bolus injection Given 2:48 PM EDT 50 mg (Anesthesia) Intravenous, PRN, Starting on Yanet 10/30/21 at 1448, Until Yanet 10/30/21 at 1516, Anesthesia Intra-op documented in this encounter Care Teams Flat Screen Worker Relationship Specialty Start Date End Date William Wade PA PCP - General Family Medicine 08/31/[address] [place] [address] [place] [address] documented as of this encounter
--- OUTSIDE RECORDS SUMMARY | 2021-11-07 00:53 | XMS_ITS | Encounter Summary ---
:1955 Author Organization [facility] [place] [address] Care Team Providers Name Role Phone William Wade Primary Care Provider Reason for Visit Auth/Cert Specialty Diagnoses / Procedures Referred By Contact Refer red To Contact Diagnoses 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d loss (chronic) Melena anemia melena Reyes Avilez MD [facility] Procedures PRO UPPER GI ENDOSCOPY, DIAGNOSTIC PRO UPPER GI ENDOSCOPY, BIOPSY PRO UP GI ENDOSCOPY, REMV TUMOR, SNARE PRO ANESTH, UGI ENDOSCOPY NOS EGD, UPPER GI ENDOSCOPY [facility] DR GASTROENTEROLOGY [place] [id number] Referral ID Status Reason Start Date Expiration Date Visits Requ ested Visits Authorized [id number] 1 1 Encounter Details Date Type Department Care Team Description 10/28/2021 Hospital Encounter Pulmonology at [facility] Malignant neoplasm of head o f pancreas; [facility] [place] [phone] Social History Tobacco Use Types Packs/Day [...] place to sleep or slept in a penitentiary (including now)? Sex Assigned at Date Recorded Not on file documented as of this encounter Medications at Time of Discharge Medication Sig Dispensed Refills Start Date End Date pantoprazole EC (Protonix) Take 1 tablet by 90 tablet 3 11/2021 40 mg Tablet, Delayed mouth daily. Release (E.C.)Indications: Ulcerated, duodenum metoprolol succinate XL Take by mouth 0 2 (Toprol-XL) 25 mg Tablet daily. Sustained Release 24 hr aspirin EC 81 mg Tablet, Take 81 mg by mouth 0 Delayed Release (E.C.) daily. atorvastatin (LIPITOR) 80 40 mg. 0 09/21/2018 mg Tablet metFORMIN (GLUCOPHAGE) 850 2 times daily. 0 09/21 mg Tablet nitroGLYcerin (NITROSTAT) Place under the 0 07/25 0.4 mg SL tablet tongue. tamsulosin (Flomax) 0.4 mg Take 0.4 mg by 0 11/03/2021 Capsule mouth daily. losartan (Cozaar) 25 mg Take 25 mg by mouth 0 11/03/2021 Tablet daily. documented as of this encounter Plan of Treatment Upcoming Encounters Date Type Specialty Care Team Description 11/07/2021 Office Visit Hematology and Oncology Eric Streeter MD [facility] ON[facility] [place], [place] [address] (Wo rk) 11/07/2021 Infusion Hematology and Oncology 11/07/2021 Office Visit Hematology and Oncology Irena Hinojosa RD [facility] [address] HEMATOLOGY AND O NCOLOGY [place], [place] [address] (Wo rk) 11/21/2021 Office Visit Hematology and Oncology Eric Streeter MD [facility] DR [address], [place] [address] (Wo rk) 11/21/2021 Infusion Hematology and Oncology 12/05/2021 Office Visit Hematology and Oncology Eric Streeter MD [facility] [place], [place] [address] (Wo rk) 12/05/2021 Infusion Hematology and Oncology 12/19/2021 Office Visit Hematology and Oncology Eric Streeter MD [facility] [place], [place] [address] (Wo rk) 12/19/2021 Infusion Hematology and Oncology documented as of this encounter Procedures Procedure Name Priority Date/Time Associated Diagnosis Comme nts PULMONARY FUNCTION Routine 10/28/2021 6:59 AM Malignant neopla sm Results for this TEST EDT of head of pancr eas procedure are in Multiple pulmonary the resul ts nodules section. documented in this encounter Results Pulmonary Function Testing (10/28/2021 6:59 AM EDT) [...] / FVC LLN 64 % COMPAS PFT [id number] Actual 0.87 L/s COMPAS PFT Pre-BD [id number] Pre-BD 39 % COMPAS PFT % of Predicted [id number] 2.23 L/s COMPAS PFT Predicted LHV90-06 Pre-BD -1.88 COMPAS PFT Z-Score DLCO Hb [...] in diffusing capacity, suggestive of emp hysema. Reyes Luther MD PFT ORDERABLES Performing Organization Address City/State/ZIP Code Phon e Number COMPAS PFT documented in this encounter Visit Diagnoses Diagnosis Malignant neoplasm of head of pancreas Multiple pulmonary nodules Other nonspecific abnormal finding of moe ng field Malignant neoplasm of head of pancreas documented in this encounter Care Teams Traffic Inspector Relationship Specialty Start Date End Date William Wade PA PCP - General Family Medicine 08/31/[address] [place] [address] [place] [address] documented as of this encounter
--- OUTSIDE RECORDS SUMMARY | 2021-11-07 00:53 | XMS_ITS | Encounter Summary ---
:1955 [place] [address] Care Team Providers Name Role Phone William Wade Primary Care Provider Reason for Visit Reason Comments Genetic Evaluation Auth/Cert Specialty Diagnoses / Procedures Referred By Contact Refer red To Contact Diagnoses 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d loss (chronic) Melena anemia melena Reyes Avilez MD [facility] Procedures PRO UPPER GI ENDOSCOPY, DIAGNOSTIC PRO UPPER GI ENDOSCOPY, BIOPSY PRO UP GI ENDOSCOPY, REMV TUMOR, SNARE PRO ANESTH, UGI ENDOSCOPY NOS EGD, UPPER GI ENDOSCOPY [facility] [place] [place] [address] Referral ID Status Reason Start Date Expiration Date Visits Requ ested Visits Authorized [id number] 1 1 Encounter Details Date Type Department Care Team Description 10/28/2021 TH Visit Hematology and Johan Arreaga Malignant neoplasm of (TeleHealth) [place]cology [place] [facility] head of pancreas Count Includes [facility] [address] [place], [place] Hematology/Oncolog [id number] y [phone] [place], [place] [address] Social History Tobacco Use Types Packs/Day Years [...] place to sleep or slept in a senior care (including now)? Sex Assigned at Date Recorded Not on file documented as of this encounter Progress Notes Johan Arreaga LGC - 10/28/2021 10:00 AM EDT Jeff Duarte was seen by WINNIE Taylor in consultation at the request of Eric Streeter to advise regarding possible heritable predisposition to cancer. I spent 19 minutes of this telephone encounter with the patient gathering medical and family historyand discussing the likelihood of a genetic predisposition to cancer and the option of genetic testing. Reason for referral/Chief complaint Personal history of pancreatic cancer. Medical history Cancer hx and treatment: Jeff is a 66yo male who was recently diagnosed with pancreatic cancer. He initially underwent an Upper EUS in 05/2021 after he presented with abdominal pain and had a CT done which showed 2 cystic pancreatic lesions. 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 ?? He then presented in 09/2021 with weight loss, difficult to control DM and jaundice. A CT was repeated and showed biliary and pancreatic ductal dilation and a new mass vs inflammatory process in the pancreatic/duodenal groove. A repeat Upper EUS was done on 10/07/21. A pancreatic head mass was seen and b iopsied. The cytology from this showed adenocarcinoma. Lung nodules were seen on chest CT and Jeff is now planning lung wedge resection on 10/31/21 to determine nodule pathology to help guide treatment. Family History of Cancer Problem Relation Age of Onset ??? Cancer Father gastrointestinal ??? Colorectal Cancer Maternal Aunt Maternal ethnic background is Hungarian [place]. Paternal ethnic background is Hungarian [place]ian. There is no known Ashkenazi Mandaeism ancestry. Jeff notes that while he is not in close contact with his children, he would likely be able to notify them of any genetic risk factors if necessary. Genetic risk assessment Based on personal and/or family history, the likelihood that Jeff would be found to have a mutation in a cancer predisposition gene is high enough to offer the option of genetic testing. Specifically, Jeff meets NCCN criteria for BRCA1/2 testing due to his personal history of pancreatic cancer. Reviewed purpose of testing, including helping determine eligibility for certain treatment options suchas PARP inhibitors, as well as to identify additional hereditary cancer risks for Jeff and his family members. Discussed that mutations in the BRCA genes, while related to increased risk for pancreatic cancer, also are known to increase risks for breast, ovarian, prostate, and male breast cancers. Panel genetic testing for an inherited predisposition to cancer, including pancreatic cancer, was discussed. The risks, benefits and limitations of panel genetic testing were reviewed, specifically a high rate of identifying a variant of uncertain significance, lack of knowledge of cancer risk for newly identified, moderate risk genes included in the panel and lack of effective screening, as well as cancer risk for other cancers not observed in the family. We reviewed dominant inheritance, meaning that if a mutation is detected there is a 50% chance for Jeff's children and siblings to have also inherited the same gene alteration. We discussed the Genetic Information Nondiscrimination Act (KWASI), a federal law prohibiting discrimination by health insurance companies and most employers based on genetic information. KWASI does not apply to life insurance, disability insurance or long-term care insurance. More information about KWASI may be found at www.GinaHelp.org. [facility] billing policy. Jeff will be notified by text and/or email regarding his estimated out of pocket cost for testing once Mateo completes their benefits investigation. At that time, if Jeff is concerned about the estimated test cost he will have the option to contact Declanvon tirado and either apply for [facility] patient assistance program to try and reduce cost of testing based on income information, cancel testing, or switch to a self-pay option of $250. If Jeff does not respond to [employer], testing will be billed to his insurance as the default option. Jeff opted for testing with [employer] [facility]s Pancreatic Cancer Panel with Preliminary-evidence PancreaticCancer Genes, a next generation sequencing panel that simultaneously analyzes 23 genes, including BRCA1 and BRCA2, that contribute to increased risk for pancreatic cancer. Jeff was verbally consentedand will be mailed consent forms to review, sign, and return. Upon receipt of his signed consents, Jeff will be contacted regarding scheduling his blood draw, likely alongside his next infusion visit. Testing will take up to 3 weeks from the time of the blood draw. Jeff will be contacted via telephone once his test results become available. If positive, we will offer a follow-up appointment. At that time, we will discuss with Jeff the implications that this test result may have for him, as wellas his family members. We will also provide Jeff with screening guidelines for cancer prevention and early detection, as well as answer any questions he may have. documented in this encounter Plan of Treatment Upcoming Encounters Date Type Specialty Care Team Description 11/07/2021 Office Visit Hematology and Oncology Eric Streeter MD [facility] [place], [place] [address] (Wo rk) 11/07/2021 Infusion Hematology and Oncology 11/07/2021 Office Visit Hematology and Oncology rIena Hinojosa RD [facility] [place], [place] [address] (Wo rk) 11/21/2021 Office Visit Hematology and Oncology Eric Streeter MD [facility] [place], [place] [address] (Wo rk) 11/21/2021 Infusion Hematology and Oncology 12/05/2021 Office Visit Hematology and Oncology Eric Streeter MD [facility] [place], [place] [address] (Wo rk) 12/05/2021 Infusion Hematology and Oncology 12/19/2021 Office Visit Hematology and Oncology Eric Streeter MD [facility] [place], [place] [address] (Wo rk) 12/19/2021 Infusion Hematology and Oncology Scheduled Referrals Name Type Priority Associated Diagnoses Order S chedule Referral to Outpatient Referral Routine 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
--- OUTSIDE RECORDS SUMMARY | 2021-11-07 00:53 | XMS_ITS | Encounter Summary ---
:1955 Author Organization [facility] [place] [address] Care Team Providers Name Role Phone William Wade Primary Care Provider Reason for Visit Auth/Cert Specialty Diagnoses / Procedures Referred By Contact Refer red To Contact Diagnoses 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d loss (chronic) Melena anemia melena Raul Rodrigez MD [facility] Procedures PRO UPPER GI ENDOSCOPY, DIAGNOSTIC PRO UPPER GI ENDOSCOPY, BIOPSY PRO UP GI ENDOSCOPY, REMV TUMOR, SNARE PRO ANESTH, UGI ENDOSCOPY NOS EGD, UPPER GI ENDOSCOPY [facility] [place] [address] [place] [address] Referral ID Status Reason Start Date Expiration Date Visits Requ ested Visits Authorized [id number] 1 1 Encounter Details Date Type Department Care Team Description 10/30/2021 Surgery Gastroenterology at [facility] Raul Rodrigez EGD, W CONTROL OF [facility] Nelson Muniz MD BLEEDING, [place] [address] [facility] [phone] [address] [place] [id number] Social History Tobacco Use Types Packs/Day Years [...] place to sleep or slept in a retirement (including now)? Sex Assigned at Date Recorded Not on file documented as of this encounter Last Filed Vital Signs Vital Sign Reading Time Taken Comments Blood Pressure 153/56 10/30/2021 1:50 PM EDT Pulse 57 10/30/2021 1:50 PM EDT Temperature 36.5 ??C (97.7 ??F) 10/30/2021 1:50 PM EDT Respiratory Rate 19 10/30/2021 1:50 PM EDT Oxygen Saturation 100% 10/30/2021 1:50 PM EDT Inhaled Oxygen Concentration - - Weight 49.9 kg (110 lb) 10/30/2021 1:50 PM EDT Height 165.1 cm (5' 5) 10/30/2021 1:50 PM EDT Body Mass Index 18.3 10/30/2021 1:50 PM EDT documented in this encounter Discharge Summaries Melo Ambrose MD - 11/03/2021 12:38 PM EDT Discharge Summary Patient Name: John Duarte Patient Age: 66 y.o. Language: Bruneian Race: White Ethnicity: Not nor Admit date: [...] unit of pRBCs and was transferred to [facility] for endoscopy and further expedited work-up. While [...] Discharge from IR when criteria are met Chiropractor Sole Practitioner(s): Resident/Fellow: Tammy Gaviria Attending: Candis Stallings Procedure/Teaching [...] who have questions please contact the health career law clerk that requested your imaging first. Electronically signed by: Jaron Stallings DO, [facility] ([phone]), at 11/03/2021 9:25 AM XR Chest One View (Exam End: 11/03/2021 10:14 AM) Impression No pneumothorax. Thank you for letting us participate in the care of this patient. If you are a health care provider and have any questions regarding this report, please contact the number below. For patients who have questions please contact the health career law clerk that requested your imaging first. Electronically signed by: Kehinde Chang MD, [facility] ([phone]), at 11/03/2021 10:18 AM XR Chest One View (Exam End: 11/03/2021 9:20 AM) Impression No pneumothorax. Thank you for letting us participate in the care of this patient. If you are a health care provider and have any questions regarding this report, please contact the number below. For patients who have questions please contact the health career law clerk that requested your imaging first. Electronically signed by: Jaron Stallings DO, [facility] ([phone]), at 11/03/2021 9:27 AM Pending Studies and Lab Data: Cytopathology of [...] Center 11/07/2021 9:00 AM Eric Streeter MD [facility] Hem [facility] 11/07/2021 9:30 AM [facility], ROOM [facility] 11/21/2021 9:00 AM Eric Streeter MD [facility] 11/21/2021 9:30 AM [facility], ROOM [facility] 12/05/2021 9:00 AM Eric Streeter MD [facility] 12/05/2021 9:30 AM [facility]ION, ROOM [facility] 12/19/2021 9:00 AM Eric Streeter MD [facility] 12/19/2021 9:30 AM [facility], ROOM [facility] Your Inpatient Medical Team at [facility] Name(s) of your inpatient provider(s): MD Melo Mccann MD Maxwell Blazon, DO Lily Greene For questions regarding issues relating to your hospitalization on the Hospital Medicine Service, please contact your inpatient physician through the [facility] Chiropractor Sole Practitioner [phone]. Issues after hours and on weekends will be handled by the Hospitalist staff on-call. Your Primary Care Provider LIBRADO Mcclendon [phone] [facility] Vascular and Interventional Radiology Biopsy Discharge Instructions [...] be reported to you by your primary health care attorney or the clinician who ordered the biopsy. [...] is during regular office hours, please call [phone]. If it is after regular office hours, oron weekends or holidays, please call [phone] and ask to speak to the Intramural Director on callfor Interventional Radiology. You have received [...] the day after the procedure, use an bboo-iwc-bhvsjfa spray to numb yourthroat. Sucking on throat [...] occurs, please contact your Doctor. Please call [phone] before 8pm Mon-Fri with problems, questions or concerns. If you call after 8pm or on weekends, call the Hospital at [phone] and ask to speak to the Pulper primary education professor and the tobacco sieve operator will contact that person for you. When should you call for help? Call [phone] anytime you think you may need emergency [...] any problems. Where can you learn more? [facility] View your After Visit Summary and more online at [email or web address] If you would like to provide feedback about your hospital experience, please call the Office of Patient and Family Relations at . If you have received this After Visit Summary in error, please immediately return it in person to the department, or notify the [facility] Privacy Office by calling toll free at between the hours of 8AM and 5PM to arrange for our retrieval of the documents at no cost to you. Content Version: 12.2 ?? 3336-0592 [employer]. Care instructions adapted under license by [facility]. If you have questions about a medical condition or this instruction, always ask your healthcare professional. [employer] disclaims any warranty or liability for your use of this information. Future Appointments and Orders Future Appointments and Orders Future Appointments Provider Department Dept Phone 11/07/2021 9:00 AM Eric Streeter MD Hematology/Oncology at [facility] Arrive at: [facility] door at end of hallway [phone] 11/07/2021 9:30 AM [facility], ROOM Hematology Oncology at [facility] Arrive at: [facility] door at end of hallway [phone] 11/21/2021 9:00 AM Eric Streeter MD Hematology/Oncology at [facility] Arrive at: [facility] door at end of hallway [phone] 11/21/2021 9:30 AM [facility] INF[facility]ION, ROOM Hematology Oncology at [facility] Arrive at: [facility] door at end of hallway [phone] 12/05/2021 9:00 AM Eric Streeter MD Hematology/Oncology at [facility] Arrive at: [facility] door at end of hallway [phone] 12/05/2021 9:30 AM [facility] INFUSION, ROOM Hematology Oncology at [facility] Arrive at: [facility] door at end of hallway [phone] 12/19/2021 9:00 AM Eric Streeter MD Hematology/Oncology at [facility] Arrive at: [facility] door at end of hallway [phone] 12/19/2021 9:30 AM [facility] INFUSION, ROOM Hematology Oncology at [facility] Arrive at: [facility] door at end of hallway [phone] Discharge References/Attachments None documented in this encounter Discharge Instructions Discharge InstructionsJoelle Khalil RN - 10/30/2021 4:[address] [facility] Vascular and Interventional Radiology Biopsy Discharge Instructions [...] [facility] as it must be treated promptly or [...] will be reported to you byyour primary health care attorney or the clinician who ordered the biopsy. Please do not call us for results as we will not have them. If you have not been contacted by your clinician within 5 business days you should call that officefor further information. When to call the Interventional Radiology Department: Please call with any questions or concerns. Ifit is during regular office hours, please call [phone]. If it is after regular office hours, oron weekends or holidays, please call [phone] and ask to speak to the Intramural Director on callfor Interventional Radiology. You have received [...] the day after the procedure, use an eldr-hje-ahdphyu spray to numb your throat. Sucking on [...] occurs, please contact your Doctor. Please call [phone] before 8pm Mon-Fri with problems, questions or concerns. If you call after 8pm or on weekends, call the Hospital at [phone] and ask to speak to the Pulper primary education professor and the tobacco sieve operator will contact that person for you. When should you call for help? Call [phone] anytime you think you may need emergency [...] any problems. Where can you learn more? [facility] View your After Visit Summary and more online at [email or web address] If you would like to provide feedback about your hospital experience, please call the Office of Patient and Family Relations at . If you have received this After Visit Summary in error, please immediately return it in person to the department, or notify the [facility] Privacy Office by calling toll free at between the hours of 8AM and 5PM to arrange for our retrieval of the documents at no cost to you. Content Version: 12.2 ?? 4261-5235 [employer]. Care instructions adapted under license by [facility]. If you have questions about a medical condition or this instruction, always ask your healthcare professional. [employer] disclaims any warranty or liability for your [...] Center 11/07/2021 9:00 AM Eric Streeter MD [facility] 11/07/2021 9:30 AM [facility] IN[facility]ION, ROOM [facility] 11/21/2021 9:00 AM Eric Streeter MD [facility] 11/21/2021 9:30 AM [facility] INFUSION, ROOM [facility] 12/05/2021 9:00 AM Eric Streeter MD [facility] 12/05/2021 9:30 AM [facility] INFUSION, ROOM [facility] 12/19/2021 9:00 AM Eric Streeter MD [facility] 12/19/2021 9:30 AM [facility] IN[facility]ION, ROOM [facility] Your Inpatient Medical Team at [facility] Name(s) of your inpatient provider(s): MD Melo Mccann MD Maxwell Blazon, DO Renea Juárez For questions regarding issues relating to your hospitalization on the Hospital Medicine Service, please contact your inpatient physician through the [facility] Chiropractor Sole Practitioner [phone]. Issues after hours and on weekends will be handled by the Hospitalist staff on-call. Your Primary Care Provider LIBRADO Mcclendon [phone] documented in this encounter Medications at Time [...] changes and additional plans. Ava Victor MD [facility] Medicine Yadira Guardado RN - 11/03/2021 10:45 AM EDT 1045- CXR okay per Dr. Stallings. Updated report called to HENRIETTA Henry. Patient transported back to room by stretcher on . Yadira Guardado RN - 11/03/2021 10:05 AM EDT 1005- Patient transported to [facility] for repeat CXR 1015- Dr. Stallings notified CXR completed Yadira Guardado RN - 11/03/2021 9:34 AM EDT 0930- Report received from HENRIETTA Roth. Patient resting [...] of : 1955 AGE: 66 y.o. Address: [address] [address] Phone: There are no phone numbers on [...] change was found Confirmed by Sienna Tian (Chente) on 10/31/2021 5:39:51 PM QTCCALC 457 VASCULAR: Recent Labs 10/06/21 1210 VBTEXTRPT Department: Vascular Surgery Lab Patient: [id number] (JOHN DUARTE) CPT: 17218 Referring Physician: GALINDO VALADEZ Indications: following carotid [...] Discharge from IR when criteria are met Chiropractor Sole Practitioner(s): Resident/Fellow: Tammy Gaviria Attending: Candis Stallings Procedure/Teaching [...] who have questions please contact the health career law clerk that requested your imaging first. Electronically signed by: Jaron Stallings DO, [facility] ([phone]), at 11/03/2021 9:25 AM XR Chest One View (Exam End: 11/03/2021 10:14 AM) Impression No pneumothorax. Thank you for letting us participate in the care of this patient. If you are a health care provider and have any questions regarding this report, please contact the number below. For patients who have questions please contact the health career law clerk that requested your imaging first. Electronically signed by: Kehinde Chang MD, [facility] ([phone]), at 11/03/2021 10:18 AM XR Chest One View (Exam End: 11/03/2021 9:20 AM) Impression No pneumothorax. Thank you for letting us participate in the care of this patient. If you are a health care provider and have any questions regarding this report, please contact the number below. For patients who have questions please contact the health career law clerk that requested your imaging first. Electronically signed by: Jaron Stallings DO, [facility] ([phone]), at 11/03/2021 9:27 AM OTHER Studies: TTE 10/30/2021 1. The left [...] Disposition: Pending course Team Pager( Coverage 12/10): #[phone] PCP: LIBRADO Mcclendon [phone] To Howard, 11/03/2021 Associated attestation - Ava [...] today. See d/c summary. [facility] 11/02/2021 6:29 PM EDT Illness Severity [x] Stable Patient Summary Reason for admission: Drop in Hgb, dark red stools concerned for GIB. Endoscopy showing mass extending into duodenum with bleeding. Also, new lung nodule found, potential metastatic disease. Relevant PMH: HTN, HLD, CAD c/b NSTEMI, duodenal ulcers, tobacco use, pancreatic malignant neoplasms. Significant 24 hour events: 814AM: VSS on RA. Had BM x1 w/ very minimal blood, team informed. Port accessed today by CRN.. Covered w/ insulin today, however skipped lunch. Spent a fair shift. Action List For VATS or Possible Whipple ? Monitoring for bloody stool Active T/S Hem onc consult for chemo planning NPO midnight Wednesday for CT guided lung biopsy on 11/03 @ 0730 Suraj Cobb, HENRIETTA - 11/02/2021 6:54 AM EDT Illness Severity [...] Intake/Output Summary (Last 24 hours) at 11/02/2021 09 Last data filed at 11/02/2021 0800 Gross [...] 4.2 3.6 CL 107 106 103 CO2 23 22 23 BUN 9* 9* 9* CREATININE 0.79* 0.69* 0.67* Last Ca, Mg, Phos Recent Labs 08/14/22 0213 CALCIUM 7.8* PHOS 2.8 MAGNESIUM 0.72 FSBG Trend Recent Labs 11/02/21 0827 11/01/21 2108 11/01/21 1705 11/01/21 1105 11/01/21 0730 10/31/21201310/31/21 1715 10/31/21 1512 10/31/21 1109 10/31/21 0731 [...] 1210 VBTEXTRPT Department: Vascular Surgery Lab Patient: [id number] (JOHN DUARTE) CPT: 86293 Referring Physician: GALINDO VALADEZ Indications: following carotid [...] Disposition: Pending course Team Pager( Coverage 12/10): #[phone] PCP: LIBRADO Mcclendon [phone] To Howard, 11/02/2021 Associated attestation - Ava [...] of two midnights or is on the [facility] inpatient only procedure list (status C) due to: ABLA 2/2 UGIB from tumor invasion of duodenum. 66y/o M with ABLA due to UGIB 2/2 likely tumor invasion into duodenum. H/H remains stable. Awaiting CT guided biopsy of pulmonary nodule tomorrow. NPO after midnight. Pt must have IV access and port access is appropriate. Orders placed this AM. Ava Victor MD [facility] Medicine Manav Palacios RN - 11/01/2021 6:35 PM EDT Illness [...] Ambrose MD - 11/01/2021 7:32 AM EDT [facility] Medicine Attending Daily Progress Note Admit [...] 0.77 FSBG Trend Recent Labs 11/01/21 0730 10/31/21201310/31/21 1715 10/31/21 1512 10/31/21 1109 10/31/21 0731 [...] change was found Confirmed by Sienna Tian (Chente) on 10/31/2021 5:39:51 PM QTCCALC 457 VASCULAR: Recent Labs 10/06/21 1210 VBTEXTRPT Department: Vascular Surgery Lab Patient: [id number] (JOHN DUARTE) CPT: 94586 Referring Physician: GALINDO VALADEZ Indications: following carotid [...] Disposition: Pending course Team Pager(MD Coverage 12/10): #[phone] PCP: LIBRADO Mcclendon [phone] Melo Ambrose MD 11/01/2021 Associated attestation - [...] of two midnights or is on the [facility] inpatient only procedure list (status C) due [...] concern for possible mets. Ava Victor MD [facility] Medicine Renea Juárez - 11/01/2021 7:29 AM EDT [...] % SpO2: [92 %-96 %] IO 10/31 0701 - 11/01 0700 In: - Out: 700 [Urine:700] Wt (last/admit) [...] in the last 7068 hours. Invalid input(s): [id number] No results for input(s): HA1C in the [...] FEV1 / FVC LLN 64 % ?? HBN53-46 Actual Pre-BD 0.87 L/s ?? ZLS96-70 Pre-BD % of Predicted 39 % ?? SMP25-72 Predicted 2.23 L/s ?? AHA80-74 Pre-BD Z-Score -1.88 ? DLCO Hb Actual [...] Inpatient # Discharge planning PCP LIBRADO Mcclendon [phone] Future Appointments Date Time Provider Department Center 11/03/2021 8:30 AM [facility] CT 5 [facility] RAD CT [facility] Rad 11/07/2021 9:00 AM Eric Streeter MD [facility] Hem [facility] 11/07/2021 9:30 AM [facility] INFUSION, ROOM [facility] 11/21/2021 9:00 AM Eric Streeter MD [facility] 11/21/2021 9:30 AM [facility] INFUSION, ROOM [facility] 12/05/2021 9:00 AM Eric Streeter MD [facility] 12/05/2021 9:30 AM [facility] INFUSION, ROOM [facility] 12/19/2021 9:00 AM Eric Streeter MD [facility] 12/19/2021 9:30 AM [facility] INFUSION, ROOM [facility] Tom Treviño MS3 Purple Team, Pager #[phone] Karon Carranza RN - 11/01/2021 5:39 AM [...] IVF continued. Pt resting during the night. 812AM: VSS on RA. Allowed diet today. Covered [...] safe [] Consults: PT [] OT [] DATABASE ANALYST [] Last Flu vaccine: Last Covid Test [...] pancreatic malignant neoplasms. Significant 24 hour events: 8/12AM: VSS on RA. Allowed diet today. [...] of : 1955 AGE: 66 y.o. Address: [address] [address] (home) [phone] (work) Mobile: Telephone Information: Referring Provider: Humberto [...] Component Value Date PLATELET 197 10/31/2021 Larry Borrego, PT - 10/31/2021 2:40 PM EDT 10/31/21 1440 Evaluation & Treatment Document Type contact Total [...] alone in a second level apartment in [place], [place]. He has 15stairs to enter. Patient is currently independent with all mobility and (I)ADLs, including driving. Reports one fall related to a syncopal episode, otherwise reports steadiness with all mobility without the use of a device. Larry Borrego, PT, DPT Pager: [phone] Physical Therapy Inpatient Rehabilitation Department Mariela Gregory, OT - 10/31/2021 10:03 AM EDT 10/31/21 6172 Evaluation & Treatment Document Type contact Total Minutes, Occupational Therapy 0 Comment, Session Not Performed OT orders have been received, chart reviewed, patient is NPO for VATSor Whipple procedure today. Will plan to see patient post-op when he's ready. Mariela Gregory OT/L Pager [phone] Occupational Therapist Rehabilitation Department Patt Noe, RD - 10/31/2021 9:36 AM EDT Nutrition [...] 2.1 (H) 10/31/2021 BILIDIR 1.4 (H) 10/31/2021 [id number] 10/21/2021 SFOLATE 14.6 10/21/2021 IRON 63 [...] of this encounter: 49.9 kg (110 lb). [place] Body Weight: 59.1kg Usual Body Weight: 125-130lbs [...] at baseline. 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 Also notes he does not have his upper dentures and will order softer foods. Estimated needs: Calories: 4945-7227 (30-35 kcal/kg) Protein: 75 grams (1.5g/kg) Nutrition [...] up while inpatient Patt Samayoa RD Pager #:[phone] Renea Juárez - 10/31/2021 7:26 AM EDT [...] SpO2: 95 % SpO2: [95 %-100 %] 10/30 07 - 10/31 07 In: 240 [P.O.:240] Out: 800 [Urine:800] Wt [...] No obvious rashs/lesions/ecchymoses/petechiae Labs: CBC: Recent Labs 10/31/2141210/21/21121410/14/21 1022 WBC 8.5 10.0* 10.3* HGB 8.5* 8.9* 8.1* PLATELET 197 249 276 Chemistry: Recent Labs 10/31/2141210/21/21121410/14/21 1022 NA 133* 138 133* K 3.4* 4.1 4.4 CL 104 103 98 CO2 23 26 23 BUN 10 13 18 CREATININE 0.56* 0.69* 0.74* GLUCOSE 92 164 268* Recent Labs 10/31/2141210/21/21121410/14/21 1022 CALCIUM 7.9* 8.4* 8.7 MAGNESIUM 0.71 -- -- PHOS 3.0 -- -- LFT's: Recent Labs 10/31/2141210/21/21121410/14/21 1022 BILITOT 2.1* 3.5* 5.2* BILIDIR 1.4* -- 3.5* ALBUMIN 2.6* 3.0* 2.9* ALKPHOS 395* 672* 1,072* ALT 21 70* 123* AST 24 72* 161* Coags: Recent Labs 10/31/21412 PT 13.2* INR 1.2 PTT 27 Cardiac enzymes: No results for input(s): TROPONINT, CK, PROBNP in the last 7068 hours. Endocrine: No results for input(s): TSH, CORTISOL in the last 7068 hours. Invalid input(s): [id number] No results for input(s): HA1C in the [...] FEV1 / FVC LLN 64 % ?? HJW35-76 Actual Pre-BD 0.87 L/s ?? BSM11-42 Pre-BD % of Predicted 39 % ?? MXF42-35 Predicted 2.23 L/s ?? UQU02-06 Pre-BD Z-Score -1.88 ? DLCO Hb Actual [...] Medications: ??? lactated Ringers 100 mL/hr (10/30/21 3882) PRN Medications: sodium chloride 0.9 % (flush), [...] treatment while he is here. Per Dr. Setvens's note will trend LFTs to see if [...] Inpatient # Discharge planning PCP LIBRADO Mcclendon [phone] @[email or web address]@ @[email or web address]@ @PCPCITY@ Future Appointments Date Time Provider Department Center 11/07/2021 9:00 AM Eric Streeter MD [facility] 11/07/2021 9:30 AM [facility]ION, ROOM [facility] 11/21/2021 9:00 AM Eric Streeter MD [facility] 11/21/2021 9:30 AM [facility] INF[facility]ION, ROOM [facility] 12/05/2021 9:00 AM Eric Streeter MD [facility] 12/05/2021 9:30 AM [facility] INFUSION, ROOM [facility] 12/19/2021 9:00 AM Eric Streeter MD [facility] 12/19/2021 9:30 AM [facility] INFUSION, ROOM [facility] Renea Tom Juárez MS3 Purple Team, Pager #[phone] Gómez Alejandra MD - 10/31/2021 7:07 AM [...] Drips: ??? lactated Ringers 100 mL/hr (10/30/21 1366) PRN: sodium chloride 0.9 % (flush), lidocaine, [...] them as documented. Gómez Alejandra MD, MS piano bench assembler Spread Cutter, Gastroenterology and Hepatology To Howard DO - [...] 1210 VBTEXTRPT Department: Vascular Surgery Lab Patient: [id number] (JOHN DUARTE) CPT: 95368 Referring Physician: GALINDO VALADEZ Indications: following carotid [...] Disposition: Pending course Team Pager( Coverage 12/10): #[phone] PCP: LIBRADO Mcclendon [phone] To Howard, 10/31/2021 Associated attestation - Sloane Kuo MD [...] anemia requiring transfusions. He was referred to [facility] for urgent endoscopy performed on 10/30 which [...] of two midnights or is on the [facility] inpatient only procedure list (status C) due [...] safe [] Consults: PT [] OT [] DATABASE ANALYST [] Last Flu vaccine: Last Covid Test [...] BONE MARROW BIOPSIES & ASPIRATIONS Left 10/24/2018 ([facility]) BONE MARROW BIOPSY AND ASPIRATION; DIAGNOSTIC performed by Sergey Cook MD at [facility] OSC ??? PRO ENDOSCOPIC US EXAM, ESOPH N/A 06/19/2021 UPPER EUS- ENDOSCOPIC ULTRASOUND performed by Gabriel Hilario MD at [facility] ENDOSCOPY ??? PRO ENDOSCOPIC US EXAM, ESOPH N/A 10/07/2021 UPPER EUS- ENDOSCOPIC ULTRASOUND performed by Humberto Dumont MD at [facility] ENDOSCOPY ??? PRO ERCP BALLOON DILATATION BILIARY/PANCREATIC DUCT OR AMPULLA EA DUCT 10/07/2021 ERCP, W BALLOON DILATION OF BILIARY/PANCREATIC DUCT performed by Humberto Dumont MD at [facility] ENDOSCOPY ??? PRO ERCP STENT PLACEMENT BILIARY OR PANCREATIC DUCT 10/07/2021 ERCP, W PLCMNT ENDOSCOPIC STENT BILIARY OR PANCREATIC DUCT performed by Humberto Dumont MD at [facility] ENDOSCOPY ??? PRO ERCP, SPHINCTEROTOMY N/A 10/07/2021 ERCP W/SPHINCTEROTOMY/PAPILLOTOMY performed by Humberto Dumont MD at [facility] ENDOSCOPY ??? PRO FINE NEEDLE ASPIRATION BX W/US GDN 1ST LESION 10/07/2021 FINE NEEDLE ASPIRATION BIOPSY, INC US GUIDANCE; FIRST LESION performed by Humberto Dumont MD at [facility] ENDOSCOPY ??? PRO INSERT TUNNELED CV CATH W SUBQ PORT, AGE 5 YRS OR OLDER N/A 10/17/2021 NAKITA\SILVIA.CATHETER,TUNNELED, WITH SQ PORT OR PUMP OVER 5YR (WRVU 6.04) performed by Jordan Stevens MD at [facility] OSC ??? PRO LAP, DX SURGICAL ABD W/BIOPSY N/A 10/17/2021 LAPAROSCOPY,SURGICAL,WITH BIOPSY, SINGLE OR MULTIPLE (WRVU 5.44) performed by Scooby Stevens MD at [facility] ??? PRO UPGI ENDOSCOPY W/US FN BX 10/07/2021 EGD, W US GUIDED FINE NEEDLE ASPIRATION/BIOPSY performed by Humberto Dumont MD at [facility] ENDOSCOPY ??? PRO UPPER GI ENDOSCOPY, CTRL BLEED N/A 10/30/2021 EGD, W CONTROL OF BLEEDING, ANY METHOD performed by Raul Rodrigez MD at [facility] ENDOSCOPY Medications: No current facility-administered medications [...] Gaviria MD Interventional Radiology PGY4 10/31/21 Melo Kee MD - 10/30/2021 4:09 PM EDT [facility] Medicine Purple Team Admission History and Physical Patient Name: John Duarte Service: Purple Team, Pager #[phone] Responsible Attending: Sloane Kuo Primary Provider: LIBRADO Mcclendon [phone] ID: John Duarte is a 66-year-old male with a past medical history NIDDMII, HTN, HLD, CAD c/b NSTEMI (PCI to the LAD 2008), prior duodenal ulcer, tobacco use disorder, and a 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 While [...] PLATELET 249 276 146 Chemistry: Recent Labs 10/21/215 10/14/21 1022 05/30/21 1159 NA 138 133* 138 K 4.1 4.4 4.7 CL 103 98 104 CO2 BUN 13 18 20 CREATININE 0.69* 0.74* 1.01 GLUCOSE 164 268* 143 Recent Labs 10/21/215 10/14/21 1022 05/30/21 1159 CALCIUM 8.4* 8.7 9.3 LFT's: Recent Labs 10/21/215 10/14/21 1022 05/30/21 1159 BILITOT 3.5* 5.2* [...] in the last 7068 hours. Invalid input(s): [id number] Heme: No results for input(s): LDH, HAPTOGLOBIN, [...] Code Melo Ambrose MD Internal Medicine, PGY-3 Hospital Medicine Purple Team Pager #[phone] 10/30/21 Associated attestation - Sloane Kuo MD [...] Renea Juárez - 10/30/2021 4:07 PM EDT [facility] Medicine Purple Team Admission History and Physical Patient Name: John Duarte Service: Purple Team Responsible Attending: Sloane Kuo Primary Provider: LIBRADO Mcclendon [phone] ID: John Duarte is a 66 y.o. [...] the pancreatic head which showed adenocarcinoma. Dr. Stevens performed a diagnostic laparoscopy on 10/17/21 which [...] less than 1 Laboratory: CBC: Recent Labs 10/21/21121410/14/21 1022 05/30/21 1159 WBC 10.0* 10.3* 7.4 HGB 8.9* 8.1* 13.0* PLATELET 249 276 146 Chemistry: Recent Labs 10/21/21121410/14/21 1022 05/30/21 1159 NA 138 133* 138 K 4.1 4.4 4.7 CL 103 98 104 CO2 BUN 13 18 20 CREATININE 0.69* 0.74* 1.01 GLUCOSE 164 268* 143 Recent Labs 10/21/21121410/14/21 1022 05/30/21 1159 CALCIUM 8.4* 8.7 9.3 LFT's: Recent Labs 10/21/21121410/14/21 1022 05/30/21 1159 BILITOT 3.5* 5.2* 0.7 [...] in the last 7068 hours. Invalid input(s): [id number] Heme: No results for input(s): LDH, HAPTOGLOBIN, [...] pending clinical course Code Status: Full code Tom Treviño MS3 10/30/21 Rojas, Larry Santiago MD - [...] indicated Patient is insured through: Primary Insurance: AAR MANAGED MEDICARE Payor: AAR MANAGED MEDICARE / Plan: [facility] MANAGED MEDICARE COMPLETE / Product Type: *No Product type* / Secondary Insurance: N/A Prescription Coverage: No This plan was formulated with input from patient, John Duarte, and team. All are in agreement withplan. Radha Taylor RN [facility] [employer]/Medicine Office of Care Management Pager: [phone] Consult Note - Kartik Olivas MD - 11/03/2021 11:47 AM EDT [facility] Department of Thoracic Surgery Inpatient Consultation Note Former[facility] [address] [place] [address] FAX: Patient Name: John Duarte Patient : 1955 Patient Patient Location: [address] [place] [address] This consultation request was made by: RAUL RODRIGEZ LEAH R ELDOR, JENNIFER M Consulting thoracic surgery attending: Dr. Martino HPI: John Duarte is a 66 y.o. male with PMHx significant for pancreatic adenocarcinoma, DM, NSTEMI (about 10 years ago, s/p stent, on ASA), HTN and HLD who is currently admitted for anemia due to bleeding from his pancreas tumor. Patient was seen by [facility] Surgical Oncology and Dr. Stevens performed laparoscopy and Mediport placement on 10/17/2021. Patient reports he has been recovering well from this. Patient was then seen by Dr. Streeter who obtained CT Chest on 10/21/2021 which demonstrated bilateral sub-6 mm solid nodules concerning for possible metastatic disease. Patient was then referred to [facility] Thoracic Surgery for further evaluation and was seen on 10/27/21 after which PFTs and TTE were obtained. PFTs revealed DLCO in the low 20s, which is concerning for ability to tolerate single lung ventilation or VATS biopsy. A peripheral 5mm RLL nodule is a possible target for CT guided percutaneous biopsy. ?? He has now been admitted to [facility] following EGD which was scheduled urgently for [...] Guided Biopsy Lung 11/03/2021 Jaron Stallings, DO [facility] RAD CT SCAN ? ? PRO DIAGNOSTIC BONE MARROW BIOPSIES & ASPIRATIONS Left 10/24/2018 ([facility]) BONE MARROW BIOPSY AND ASPIRATION; DIAGNOSTIC performed by Sergey Cook MD at [facility] ??? PRO ENDOSCOPIC US EXAM, ESOPH N/A 06/19/2021 UPPER EUS- ENDOSCOPIC ULTRASOUND performed by Gabriel Hilario MD at [facility] ENDOSCOPY ??? PRO ENDOSCOPIC US EXAM, ESOPH N/A 10/07/2021 UPPER EUS- ENDOSCOPIC ULTRASOUND performed by Humberto Dumont MD at [facility] ENDOSCOPY ??? PRO ERCP BALLOON DILATATION BILIARY/PANCREATIC DUCT OR AMPULLA EA DUCT 10/07/2021 ERCP, W BALLOON DILATION OF BILIARY/PANCREATIC DUCT performed by Humberto Dumont MD at [facility] ENDOSCOPY ??? PRO ERCP STENT PLACEMENT BILIARY OR PANCREATIC DUCT 10/07/2021 ERCP, W PLCMNT ENDOSCOPIC STENT BILIARY OR PANCREATIC DUCT performed by Humberto Dumont MD at [facility] ENDOSCOPY ??? PRO ERCP, SPHINCTEROTOMY N/A 10/07/2021 ERCP W/SPHINCTEROTOMY/PAPILLOTOMY performed by Humberto Dumont MD at [facility] ENDOSCOPY ??? PRO FINE NEEDLE ASPIRATION BX W/US GDN 1ST LESION 10/07/2021 FINE NEEDLE ASPIRATION BIOPSY, INC US GUIDANCE; FIRST LESION performed by Humberto Dumont MD at [facility] ENDOSCOPY ??? PRO INSERT TUNNELED CV CATH W SUBQ PORT, AGE 5 YRS OR OLDER N/A 10/17/2021 NAKITA\SILVIA.CATHETER,TUNNELED, WITH SQ PORT OR PUMP OVER 5YR (WRVU 6.04) performed by Jordan Stevens MD at [facility] ??? PRO LAP, DX SURGICAL ABD W/BIOPSY N/A 10/17/2021 LAPAROSCOPY,SURGICAL,WITH BIOPSY, SINGLE OR MULTIPLE (WRVU 5.44) performed by Scooby Stevens MD at [facility] ??? PRO UPGI ENDOSCOPY W/US FN BX 10/07/2021 EGD, W US GUIDED FINE NEEDLE ASPIRATION/BIOPSY performed by Humberto Dumont MD at [facility] ENDOSCOPY ??? PRO UPPER GI ENDOSCOPY, CTRL BLEED N/A 10/30/2021 EGD, W CONTROL OF BLEEDING, ANY METHOD performed by Raul Rodrigez MD at [facility] ENDOSCOPY Medications: Outpatient Medications Marked as [...] Row Admission (Current) from 10/30/2021 in 1 [facility] Office Visit from 10/27/2021 in Thoracic Surgery at [facility] Weight 49.9 kg (110 lb) 1 10/30/2021 [...] last 3 completed shifts: In: - Out: 1949 [Urine:1950] Labs: Recent Results (from the past [...] Olivas MD 11/03/2021 Thoracic Surgery Service Pager [phone] Associated attestation - Jaime Martino MD - [...] Olivas MD - 11/02/2021 10:34 AM EDT [facility] Department of Thoracic Surgery Inpatient Consultation Note [facility] [address] [place], [place] [address] FAX: Patient Name: John Duarte Patient : 1955 Patient Patient Location: [address] [place] [address] This consultation request was made by: RAUL RODRIGEZ LEAH R ELDOR, JENNIFER M Consulting thoracic surgery attending: Dr. Martino HPI: John Duarte is a 66 y.o. male with PMHx significant for pancreatic adenocarcinoma, DM, NSTEMI (about 10 years ago, s/p stent, on ASA), HTN and HLD who is currently admitted for anemia due to bleeding from his pancreas tumor. Patient was seen by [facility] Surgical Oncology and Dr. Stevens performed laparoscopy and Mediport placement on 10/17/2021. Patient reports he has been recovering well from this. Patient was then seen by Dr. Streeter who obtained CT Chest on 10/21/2021 which demonstrated bilateral sub-6 mm solid nodules concerning for possible metastatic disease. Patient was then referred to [facility] Thoracic Surgery for further evaluation and was seen on 10/27/21 after which PFTs and TTE were obtained. PFTs revealed DLCO in the low 20s, which is concerning for ability to tolerate single lung ventilation or VATS biopsy. A peripheral 5mm RLL nodule is a possible target for CT guided percutaneous biopsy. ?? He has now been admitted to [facility] following EGD which was scheduled urgently for [...] MARROW BIOPSIES & ASPIRATIONS Left 10/24/2018 ([facility]) BONE MARROW BIOPSY AND ASPIRATION; DIAGNOSTIC performed by Sergey Cook MD at [facility] ??? PRO ENDOSCOPIC US EXAM, ESOPH N/A 06/19/2021 UPPER EUS- ENDOSCOPIC ULTRASOUND performed by Gabriel Hilario MD at [facility] ENDOSCOPY ??? PRO ENDOSCOPIC US EXAM, ESOPH N/A 10/07/2021 UPPER EUS- ENDOSCOPIC ULTRASOUND performed by Humberto Dumont MD at [facility] ENDOSCOPY ??? PRO ERCP BALLOON DILATATION BILIARY/PANCREATIC DUCT OR AMPULLA EA DUCT 10/07/2021 ERCP, W BALLOON DILATION OF BILIARY/PANCREATIC DUCT performed by Humberto Dumont MD at [facility] ENDOSCOPY ??? PRO ERCP STENT PLACEMENT BILIARY OR PANCREATIC DUCT 10/07/2021 ERCP, W PLCMNT ENDOSCOPIC STENT BILIARY OR PANCREATIC DUCT performed by Humberto Duomnt MD at [facility] ENDOSCOPY ??? PRO ERCP, SPHINCTEROTOMY N/A 10/07/2021 ERCP W/SPHINCTEROTOMY/PAPILLOTOMY performed by Humberto Dumont MD at [facility] ENDOSCOPY ??? PRO FINE NEEDLE ASPIRATION BX W/US GDN 1ST LESION 10/07/2021 FINE NEEDLE ASPIRATION BIOPSY, INC US GUIDANCE; FIRST LESION performed by Humberto Dumont MD at [facility] ENDOSCOPY ??? PRO INSERT TUNNELED CV CATH W SUBQ PORT, AGE 5 YRS OR OLDER N/A 10/17/2021 NAKITA\SILVIA.CATHETER,TUNNELED, WITH SQ PORT OR PUMP OVER 5YR (WRVU 6.04) performed by Jordan Stevens MD at [facility] ??? PRO LAP, DX SURGICAL ABD W/BIOPSY N/A 10/17/2021 LAPAROSCOPY,SURGICAL,WITH BIOPSY, SINGLE OR MULTIPLE (WRVU 5.44) performed by Scooby Stevens MD at [facility] ??? PRO UPGI ENDOSCOPY W/US FN BX 10/07/2021 EGD, W US GUIDED FINE NEEDLE ASPIRATION/BIOPSY performed by Humberto Dumont MD at [facility] ENDOSCOPY ??? PRO UPPER GI ENDOSCOPY, CTRL BLEED N/A 10/30/2021 EGD, W CONTROL OF BLEEDING, ANY METHOD performed by Raul Rodrigez MD at [facility] ENDOSCOPY Medications: Outpatient Medications Marked as [...] Row Admission (Current) from 10/30/2021 in 1 [facility] Office Visit from 10/27/2021 in Thoracic Surgery at [facility] Weight 49.9 kg (110 lb) 1 10/30/2021 [...] Result Value Ref Range UPPER GI ENDOSCOPY [facility] Endoscopy Procedure Date: 10/30/2021 2:40 PM Patient Name: John Duarte Date of : 1955 Age: 66 Order #: [id number] Instrument Name: [id number] Procedure: Upper GI endoscopy Indications: Melena Providers: Raul Rodrigez MD, Carolee Isabel, Julita Burleson, HENRIETTA, Starr Watts, Propulsion Systems Engineer Referring MD: Medicines: Monitored Anesthesia Care Complications: [...] oncology consultations Procedure Code(s): --- Professional --- 48047, Esophagogastroduodenoscopy, flexible, transoral; diagnostic, including collection of specimen(s) by brushing or washing, when performed (separate procedure) CPT copyright 2020 [employer]. All rights reserved. The codes documented in this report are preliminary and upon computer tech review may be revised to meet current [...] QTC Calculated (Bezet) 457 ms Calculated P Blakeslee 65 degrees Calculated R Blakeslee 69 degrees Calculated T Blakeslee 66 degrees INTERPRETATION Normal sinus rhythm Left bundle branch block Abnormal ECG When compared with ECG of 26-APR-2008 07:39, No significant change was found Confirmed by Sienna Tian ([email or web address]) on 10/31/2021 5:39:51 PM POCT Glucose Result [...] Value Ref Range T&S only valid at [facility] POCT Glucose Result Value Ref Range POC [...] Olivas MD 11/02/2021 Thoracic Surgery Service Pager [phone] Associated attestation - Jaime Martino MD - [...] needed. Primary RN reached out to covering to obtain order to access the patient's mediport. Covering MD requesting PIV placement instead of accessing mediport. This RN discussed patient with MD Nunn, and informed MD of hospital policy 50019 which states to use the patient's port as the preferred IV route. No order received to access patients mediport. Upon conclusion of conversation MD states that patient is ok to go without IV access at this time. Consult Note - Kartik Olivas MD - 11/01/2021 11:04 AM EDT [facility] Department of Thoracic Surgery Inpatient Consultation Note [place] [address] FAX: Patient Name: John Duarte Patient : [...] his pancreas tumor. Patient was seen by [facility] Surgical Oncology and Dr. Stevens performed laparoscopy and Mediport placement on 10/17/2021. Patient reports he has been recovering well from this. Patient was then seen by Dr. Streeter who obtained CT Chest on 10/21/2021 which demonstrated bilateral sub-6 mm solid nodules concerning for possible metastatic disease. Patient was then referred to [facility] Thoracic Surgery for further evaluation and was seen on 10/27/21 after which PFTs and TTE were obtained. PFTs revealed DLCO in the low 20s, which is concerning for ability to tolerate single lung ventilation or VATS biopsy. A peripheral 5mm RLL nodule is a possible target for CT guided percutaneous biopsy. ?? He has now been admitted to [facility] following EGD which was scheduled urgently for [...] MARROW BIOPSIES & ASPIRATIONS Left 10/24/2018 ([facility]) BONE MARROW BIOPSY AND ASPIRATION; DIAGNOSTIC performed by Sergey Cook MD at [facility] ??? PRO ENDOSCOPIC US EXAM, ESOPH N/A 06/19/2021 UPPER EUS- ENDOSCOPIC ULTRASOUND performed by Gabriel Hilario MD at [facility] ENDOSCOPY ??? PRO ENDOSCOPIC US EXAM, ESOPH N/A 10/07/2021 UPPER EUS- ENDOSCOPIC ULTRASOUND performed by Humberto Dumont MD at [facility] ENDOSCOPY ??? PRO ERCP BALLOON DILATATION BILIARY/PANCREATIC DUCT OR AMPULLA EA DUCT 10/07/2021 ERCP, W BALLOON DILATION OF BILIARY/PANCREATIC DUCT performed by Humberto Dumont MD at [facility] ENDOSCOPY ??? PRO ERCP STENT PLACEMENT BILIARY OR PANCREATIC DUCT 10/07/2021 ERCP, W PLCMNT ENDOSCOPIC STENT BILIARY OR PANCREATIC DUCT performed by Humberto Dumont MD at [facility] ENDOSCOPY ??? PRO ERCP, SPHINCTEROTOMY N/A 10/07/2021 ERCP W/SPHINCTEROTOMY/PAPILLOTOMY performed by Humberto Dumont MD at [facility] ENDOSCOPY ??? PRO FINE NEEDLE ASPIRATION BX W/US GDN 1ST LESION 10/07/2021 FINE NEEDLE ASPIRATION BIOPSY, INC US GUIDANCE; FIRST LESION performed by Humberto Dumont MD at [facility] ENDOSCOPY ??? PRO INSERT TUNNELED CV CATH W SUBQ PORT, AGE 5 YRS OR OLDER N/A 10/17/2021 NAKITA\SILVIA.CATHETER,TUNNELED, WITH SQ PORT OR PUMP OVER 5YR (WRVU 6.04) performed by Jordan Stevens MD at [facility] ??? PRO LAP, DX SURGICAL ABD W/BIOPSY N/A 10/17/2021 LAPAROSCOPY,SURGICAL,WITH BIOPSY, SINGLE OR MULTIPLE (WRVU 5.44) performed by Scooby Stevens MD at [facility] ??? PRO UPGI ENDOSCOPY W/US FN BX 10/07/2021 EGD, W US GUIDED FINE NEEDLE ASPIRATION/BIOPSY performed by Humberto Dumont MD at [facility] ENDOSCOPY ??? PRO UPPER GI ENDOSCOPY, CTRL BLEED N/A 10/30/2021 EGD, W CONTROL OF BLEEDING, ANY METHOD performed by Raul Rodrigez MD at [facility] ENDOSCOPY Medications: Outpatient Medications Marked as [...] Row Admission (Current) from 10/30/2021 in 1 [facility] Office Visit from 10/27/2021 in Thoracic Surgery at [facility] Weight 49.9 kg (110 lb) 1 10/30/2021 [...] Result Value Ref Range UPPER GI ENDOSCOPY [facility] End[facility] Procedure Date: 10/30/2021 2:40 PM Patient Name: John Duarte Date of : 1955 Age: 66 Order #: [id number] Instrument Name: [id number] Procedure: Upper GI endoscopy Indications: Melena Providers: Raul Rodrigez MD, Julita Riley RN, Starr Watts, Propulsion Systems Engineer Referring MD: Medicines: Monitored Anesthesia Care Complications: [...] oncology consultations Procedure Code(s): --- Professional --- 31540, Esophagogastroduodenoscopy, flexible, transoral; diagnostic, including collection of specimen(s) by brushing or washing, when performed (separate procedure) CPT copyright 2020 [employer]. All rights reserved. The codes documented in this report are preliminary and upon computer tech review may be revised to meet current [...] QTC Calculated (Bezet) 457 ms Calculated P Blakeslee 65 degrees Calculated R Blakeslee 69 degrees Calculated T Blakeslee 66 degrees INTERPRETATION Normal sinus rhythm Left [...] Value Ref Range T&S only valid at [facility] POCT Glucose Result Value Ref Range POC [...] on prior CT from 09/30/2021, excluded from [id number] 06/07/2021 CT. 4 mm nodule along the [...] Olivas MD 11/01/2021 Thoracic Surgery Service Pager [phone] Associated attestation - Jaime Martino MD - [...] Sherman MD - 10/31/2021 1:58 PM EDT [facility] Department of Thoracic Surgery Inpatient Consultation Note [facility] [address] [place], [place] [address] FAX: Patient Name: John Duarte Patient : 1955 Patient Patient Location: [address] [place] [address] This consultation request was made by: RAUL RODRIGEZ LEAH R Consulting thoracic surgery attending: Dr. Thapa HPI: oJhn Duarte is a 66 y.o. male with [...] demonstrated adenocarcinoma. Patient was then seen by [facility] Surgical Oncology and Dr. Stevens performed laparoscopy and Mediport placement on 10/17/2021. Patient reports he has been recovering well from this. Patient was then seen by Dr. Streeter who obtained CT Chest on 10/21/2021 which demonstrated bilateral sub-6 mm solid nodules concerning for possible metastatic disease. Patient was then referred to [facility] Thoracic Surgery for further evaluation and was seen on 10/27/21 after which PFTs and TTE were obtained. PFTs revealed DLCO in the low 20s, which is concerning for ability to tolerate single lung ventilation or VATS biopsy. A peripheral 5mm RLL nodule is a possible target for CT guided percutaneous biopsy. ?? He has now been admitted to [facility] following EGD which was scheduled urgently for persistent anemia requiring blood transfusions every couple of days which progressed to melena this morning. EGD revealedbleeding from his nearly obstructive pancreatic mass invading the duodenum to which Hemospray was rené lied. Patient is a current smoker of about 1/2 ppd, reports he has been working on [employer], previously smoked about 1 ppd for about 27 years (estimate 27 pack year smoking history. Denies ETOH / illicitdrug use. He reports he is able to walk without limitation on the flat and up 1-2 flights of stairs without stopping. 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 He reports weight loss of about 20 [...] BONE MARROW BIOPSIES & ASPIRATIONS Left 10/24/2018 ([facility]) BONE MARROW BIOPSY AND ASPIRATION; DIAGNOSTIC performed by Sergey Cook MD at [facility] ??? PRO ENDOSCOPIC US EXAM, ESOPH N/A 06/19/2021 UPPER EUS- ENDOSCOPIC ULTRASOUND performed by Gabriel Hilario MD at [facility] END[facility]COPY ??? PRO ENDOSCOPIC US EXAM, ESOPH N/A 10/07/2021 UPPER EUS- ENDOSCOPIC ULTRASOUND performed by Humberto Dumont MD at [facility] END[facility]COPY ??? PRO ERCP BALLOON DILATATION BILIARY/PANCREATIC DUCT OR AMPULLA EA DUCT 10/07/2021 ERCP, W BALLOON DILATION OF BILIARY/PANCREATIC DUCT performed by Humberto Dumont MD at [facility] ENDOSCOPY ??? PRO ERCP STENT PLACEMENT BILIARY OR PANCREATIC DUCT 10/07/2021 ERCP, W PLCMNT ENDOSCOPIC STENT BILIARY OR PANCREATIC DUCT performed by Humberto Dumont MD at [facility] ENDOSCOPY ??? PRO ERCP, SPHINCTEROTOMY N/A 10/07/2021 ERCP W/SPHINCTEROTOMY/PAPILLOTOMY performed by Humberto Dumont MD at [facility] ENDOSCOPY ??? PRO FINE NEEDLE ASPIRATION BX W/US GDN 1ST LESION 10/07/2021 FINE NEEDLE ASPIRATION BIOPSY, INC US GUIDANCE; FIRST LESION performed by Humberto Dumont MD at [facility] ENDOSCOPY ??? PRO INSERT TUNNELED CV CATH W SUBQ PORT, AGE 5 YRS OR OLDER N/A 10/17/2021 NAKITA\SILVIA.CATHETER,TUNNELED, WITH SQ PORT OR PUMP OVER 5YR (WRVU 6.04) performed by Jordan Stevens MD at [facility] ??? PRO LAP, DX SURGICAL ABD W/BIOPSY N/A 10/17/2021 LAPAROSCOPY,SURGICAL,WITH BIOPSY, SINGLE OR MULTIPLE (WRVU 5.44) performed by Scooby Stevens MD at [facility] ??? PRO UPGI ENDOSCOPY W/US FN BX 10/07/2021 EGD, W US GUIDED FINE NEEDLE ASPIRATION/BIOPSY performed by Humberto Dumont MD at [facility] ??? PRO UPPER GI ENDOSCOPY, CTRL BLEED N/A 10/30/2021 EGD, W CONTROL OF BLEEDING, ANY METHOD performed by Raul Rodrigez MD at [facility] Medications: Outpatient Medications Marked as [...] Row Admission (Current) from 10/30/2021 in 1 [facility] Office Visit from 10/27/2021 in Thoracic Surgery at [facility] Weight 49.9 kg (110 lb) 1 10/30/2021 [...] Result Value Ref Range UPPER GI ENDOSCOPY [facility] Procedure Date: 10/30/2021 2:40 PM Patient Name: John Duarte Date of : 1955 Age: 66 Order #: [id number] Instrument Name: [id number] Procedure: Upper GI endoscopy Indications: Melena Providers: Raul Rodrigez MD, Carolee Isabel, Julita Burleson RN, Starr Watts, Propulsion Systems Engineer Referring MD: Medicines: Monitored Anesthesia Care Complications: [...] oncology consultations Procedure Code(s): --- Professional --- 74753, Esophagogastroduodenoscopy, flexible, transoral; diagnostic, including collection of specimen(s) by brushing or washing, when performed (separate procedure) CPT copyright 2020 [employer]. All rights reserved. The codes documented in this report are preliminary and upon computer tech review may be revised to meet current [...] QTC Calculated (Bezet) 457 ms Calculated P Blakeslee 65 degrees Calculated R Blakeslee 69 degrees Calculated T Blakeslee 66 degrees INTERPRETATION Normal sinus rhythm Left [...] Value Ref Range T&S only valid at [facility] H[facility] POCT Glucose Result Value Ref Range [...] on prior CT from 09/30/2021, excluded from [id number] 06/07/2021 CT. 4 mm nodule along the [...] Sherman MD 10/31/2021 Thoracic Surgery Service Pager [phone] Initial Assessments - Erica Mtz MSW - [...] surrogate would be surrogate decision maker per [place] decision making law. (Only good for 180 days) Any patient receiving care in [place] must abide by [place] law. The hierarchy for surrogate decision making [...] (i) The agent with financial power of marina dry dock manager or a conservator appointed in accordance [...] comments), glucometer (Insulin) Home Address confirmed as: [address] [address] Social & Family Supports: All names listed [...] at this time. Health/Prescription Coverage: Primary Insurance: [facility] MANAGED MEDICARE Payor: [facility] MANAGED MEDICARE / Plan: [facility] MANAGED MEDICARE COMPLETE / Product Type: *No Product type* / Secondary Insurance: N/A Secondary Insurance? (Only Medicare A&B): No ; Prescription Coverage: No Preferred Pharmacy: [id number] [facility] & [address] [address] [place] Status: Patient is a : No Primary Care Provider: LIBRADO Mcclendon [phone] Patient/Caregiver Goals of Treatment: Patient plans to [...] No SW need identified at this time. HERBARIUM CURATOR will remain available. A member of the Care Management team will continue to monitor progress, follow for continuity of care and assist with transition of care planning. LESVIA Johnson [facility] Medicine/ Medical Specialties Pager- [phone] Consult Note - Kartik Olivas MD - 10/30/2021 5:34 PM EDT [facility] Department of Thoracic Surgery Inpatient Consultation Note [place], [place] [address] FAX: Patient Name: John Duarte Patient : 1955 Patient Patient Location: [address] This consultation request was made by: [...] demonstrated adenocarcinoma. Patient was then seen by [facility] Surgical Oncology and Dr. Stevens performed laparoscopy and Mediport placement on 10/17/2021. Patient reports he has been recovering well from this. Patient was then seen by Dr. Streeter who obtained CT Chest on 10/21/2021 which demonstrated bilateral sub-6 mm solid nodules concerning for possible metastatic disease. Patient was then referred to [facility] Thoracic Surgery for further evaluation and was seen on 10/27/21 after which PFTs and TTE were obtained. ?? He has now being admitted to [facility] following EGD which was scheduled urgently for persistent anemia requiring blood transfusions every couple of days which progressed to melena this morning. EGD revealed bleeding from his nearly obstructive pancreatic mass invading the duodenum to which Hemospray was ap plied. Patient is a current smoker of about 1/2 ppd, reports he has been working on [employer], previously smoked about 1 ppd for about 27 years (estimate 27 pack year smoking history. Denies ETOH / illicitdrug use. He reports he is able to walk without limitation on the flat and up 1-2 flights of stairs without stopping. 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 He reports weight loss of about 20 [...] MARROW BIOPSIES & ASPIRATIONS Left 10/24/2018 ([facility]) BONE MARROW BIOPSY AND ASPIRATION; DIAGNOSTIC performed by Sergey Cook MD at [facility] OSC ??? PRO ENDOSCOPIC US EXAM, ESOPH N/A 06/19/2021 UPPER EUS- ENDOSCOPIC ULTRASOUND performed by Gabriel Hilario MD at [facility] ENDOSCOPY ??? PRO ENDOSCOPIC US EXAM, ESOPH N/A 10/07/2021 UPPER EUS- ENDOSCOPIC ULTRASOUND performed by Humberto Dumont MD at [facility] ENDOSCOPY ??? PRO ERCP BALLOON DILATATION BILIARY/PANCREATIC DUCT OR AMPULLA EA DUCT 10/07/2021 ERCP, W BALLOON DILATION OF BILIARY/PANCREATIC DUCT performed by Humberto Dumont MD at [facility] ENDOSCOPY ??? PRO ERCP STENT PLACEMENT BILIARY OR PANCREATIC DUCT 10/07/2021 ERCP, W PLCMNT ENDOSCOPIC STENT BILIARY OR PANCREATIC DUCT performed by Humberto Dumont MD at [facility] ENDOSCOPY ??? PRO ERCP, SPHINCTEROTOMY N/A 10/07/2021 ERCP W/SPHINCTEROTOMY/PAPILLOTOMY performed by Humberto Dumont MD at [facility] ENDOSCOPY ??? PRO FINE NEEDLE ASPIRATION BX W/US GDN 1ST LESION 10/07/2021 FINE NEEDLE ASPIRATION BIOPSY, INC US GUIDANCE; FIRST LESION performed by Humberto Dumont MD at [facility] ENDOSCOPY ??? PRO INSERT TUNNELED CV CATH W SUBQ PORT, AGE 5 YRS OR OLDER N/A 10/17/2021 NAKITA\SILVIA.CATHETER,TUNNELED, WITH SQ PORT OR PUMP OVER 5YR (WRVU 6.04) performed by Jordan Stevens MD at [facility] OSC ??? PRO LAP, DX SURGICAL ABD W/BIOPSY N/A 10/17/2021 LAPAROSCOPY,SURGICAL,WITH BIOPSY, SINGLE OR MULTIPLE (WRVU 5.44) performed by Scooby Stevens MD at [facility] OSC ??? PRO UPGI ENDOSCOPY W/US FN BX 10/07/2021 EGD, W US GUIDED FINE NEEDLE ASPIRATION/BIOPSY performed by Humberto Dumont MD at [facility] ENDOSCOPY Medications: Outpatient Medications Marked as [...] Admission (Current) from 10/30/2021 in Gastroenterology at [facility] Office Visit from 10/27/2021 in Thoracic Surgery at [facility] Weight 49.9 kg (110 lb) 1 10/30/2021 [...] -2.08 FEV1 / FVC LLN 64 % [id number] Actual Pre-BD 0.87 L/s [id number] Pre-BD % of Predicted 39 % [id number] Predicted 2.23 L/s [id number] Pre-BD Z-Score -1.88 DLCO Hb Actual Pre-BD [...] Result Value Ref Range UPPER GI ENDOSCOPY [facility] Endoscopy Procedure Date: 10/30/2021 2:40 PM Patient Name: John Duarte Date of : 1955 Age: 66 Order #: [id number] Instrument Name: [id number] Procedure: Upper GI endoscopy Indications: Melena Providers: Raul Rodrigez MD, Carolee Isabel, Julita Burleson RN, Starr Watts, Propulsion Systems Engineer Referring MD: Medicines: Monitored Anesthesia Care Complications: [...] oncology consultations Procedure Code(s): --- Professional --- 58434, Esophagogastroduodenoscopy, flexible, transoral; diagnostic, including collection of specimen(s) by brushing or washing, when performed (separate procedure) CPT copyright 2020 [employer]. All rights reserved. The codes documented in this report are preliminary and upon computer tech review may be revised to meet current [...] on prior CT from 09/30/2021, excluded from [id number] 06/07/2021 CT. 4 mm nodule along the [...] Olivas MD 10/30/2021 Thoracic Surgery Service Pager [phone] Associated attestation - Zaheer Thapa MD - [...] BILIDIR, BILITOT, ALT, PROT IMAGING: Reviewed in eD 10/21/2021 CT Chest ?? IMPRESSION ?? 1. [...] partially visualized perihepatic ascites. ENDOSCOPY: Reviewed in eDH 10/30/2021 EGD Impression: ?- Likely tumor ingrowth [...] M.D. Fellow in Gastroenterology and Hepatology Pager #[phone] 10/30/2021 documented in this encounter Plan of Treatment Upcoming Encounters Date Type Specialty Care Team Description 11/07/2021 Office Visit Hematology and Oncology Eric Streeter MD [facility] ONCOLOGY [place], [place] 0[address] (Wo rk) 11/07/2021 Infusion Hematology and Oncology 11/07/2021 Office Visit Hematology and Oncology Irena Hinojosa RD [facility] DRIVE HEMATOLOGY AND [place], [place] 0[address] (Wo rk) 11/21/2021 Office Visit Hematology and Oncology Eric tSreeter MD [facility] DR [place], [place] 0[address] (Wo rk) 11/21/2021 Infusion Hematology and Oncology 12/05/2021 Office Visit Hematology and Oncology Eric Streeter MD [facility] DR [place], [place] 0[address] (Wo rk) 12/05/2021 Infusion Hematology and Oncology 12/19/2021 Office Visit Hematology and Oncology Eric Streeter MD [facility] ER DR ONCOLOGY [place], [place] 0[address] (Wo rk) 12/19/2021 Infusion Hematology and [...] Results POCT Glucose (11/03/2021 11:25 AM EDT) athologist Signature POC Glucose 167 65 - 199 [facility] mg/dL [facility] Comment: Supplemental ranges: <140 mg/dL before meals <180 mg/dL all other times of the day Specimen Anatomical Collection Method Collection Time Receive d Time (Source) Location / / Volume Laterality Blood 11/03/2021 11:25 11/03/2021 AM EDT 11:25 AM EDT Ava Victor MD POINT OF CARE TEST ORDERABLE S Performing Organization Address City/State/[place] [address] XR Chest One View [...] who have questions please contact the health career law clerk that requested your imaging first. ? Narrative [...] ho have questions please contact the health career law clerk that requested your imaging first. Ava Victor [...] who have questions please contact the health career law clerk that requested your imaging first. ? Electronically signed by: Jaron Stallings DO [facility] ([phone]), at 11/03/2021 9:27 AM Narrative 11/03/2021 9:27 AM EDT EXAMINATION: XR [...] ho have questions please contact the health career law clerk that requested your imaging first. Electronically signed by: Jaron Stallings DO, [facility] ([phone]), at 11/03/2021 9:27 AM Ava Victor MD IMG DX ORDERABLES CT [...] ??Discharge from IR when criteria are met Chiropractor Sole Practitioner(s): Resident/Fellow: Tammy Gaviria Attending: Candis Stallings Procedure/Teaching [...] who have questions please contact the health career law clerk that requested your imaging first. ? Electronically signed by: Jaron Stallings DO, [facility] ([phone]), at 11/03/2021 9:25 AM Narrative 11/03/2021 9:25 [...] taken. Through t he introducer needle, the BiosAmberWavey pleural plug was deployed. ??The needle was [...] from IR when criteria are me t Chiropractor Sole Practitioner(s): Resident/Fellow: Tammy Gaviria Attending: Candis Stallings Procedure/Teaching [...] ho have questions please contact the health career law clerk that requested your imaging first. Electronically signed by: Jaron Stallings DO, [facility] ([phone]), at 11/03/2021 9:25 AM Sloane Kuo MD IMG CT ORDERABLES Surgical Pathology Report (11/03/2021 8:30 AM EDT) Component Value Ref Test Analysis Performed At [facility] Method Time Signature Surgical [id number] ? Location: 1WST; 0103; [facility] Report The signing pathologist has (i) examined the relevant preparation(s) for the [facility] specimen(s) and (ii) rendered or confirmed the diagnosis(es) . HOSPITAL LABORATORY . ?Surgic al Pathology DIAGNOSIS Right lung, biopsy: Benign lung parenchyma with patchy chronic infla mmation and reactive changes, negative for malignancy. (see Discussion) Electronically signed by: ?Komal PETERSON, Haylee Santiago Verified: ??11/06/2021 11:19 ??Pathologist Performed at: ??-[facility] Dept. of Pathology, [place], [place] DISCUSSION Step levels were examined. SPECIMEN(S) [...] Organization Address City/State/[place] [address] Specimen to Pathology (11/03/2021 7:48 AM EDT) Specimen Anatomical Collection Method Collection Time Receive d Time (Source) Location / / Volume Laterality AP Specimen 11/03/2021 7:48 AM 7:48 EDT AM EDT Narrative [facility] - 11/03/2021 7:48 AM EDT Specimen requisition ordered. ??Separate Pathology report to follow Ava Victor MD PATHOLOGY/CYTOLOGY ORDERABLE S Performing Organization Address City/State/[place] [address] POCT Glucose (11/03/2021 7:36 AM EDT) athologist Signature POC Glucose 183 65 - 199 [facility] mg/dL [facility] Comment: Supplemental ranges: <140 mg/dL before meals <180 mg/dL all other times of the day Specimen Anatomical Collection Method Collection Time Receive d Time (Source) Location / / Volume Laterality Blood 11/03/2021 7:36 AM 2 7:36 EDT AM EDT Ava Victor MD POINT OF CARE TEST ORDERABLE S Performing Organization Address City/State/[place] [address] Differential, Automated (11/03/2021 4:15 AM EDT) athologist Signature Neutrophils % 69.9 % [facility] Neutr Abs (ANC) 5.87 1.70 - [facility] 6.[address] [facility] x10(3)/[facility] LABORATORY Lymphocytes % 22.3 % [facility] Lymphocytes Abs 1.9 0.9 - 3.2 [facility] x10(3)/[facility] LABORATORY Monocytes % 6.5 % [facility] Monocyte Abs 0.6 0.3 - 0.9 [facility] x10(3)/[facility] LABORATORY Eosinophils % 0.6 % [facility] Eosinophils Abs 0.0 0.0 - 0.4 [facility] x10(3)/[facility] LABORATORY Basophils % 0.2 % [facility] Basophils Abs 0.0 0.0 - 0.1 [facility] x10(3)/[facility] LABORATORY Immature Gran % 0.50 % [facility] Comment: Immature granulocytes(IG's)percentage an d absolute count will include metamyelocytes, myelocytes, and promyelo cytes. Blood smears from CBCs yielding IG's will be scanned manually for concor dance. If this scan disagrees with the automated IG or if promyelocytes are not ed, a manual differential will be performed. Neda Gran Abs 0.04 0.00 - 0.04 x10(3)/[facility] Y [facility] LABORATORY Specimen Anatomical Collection Method Collection Time Receive d Time (Source) Location / / Volume Laterality Blood 11/03/2021 4:15 AM 4:44 EDT AM EDT Resulting Agency Comment Spec In Lab Melo Ambrose MD HEMATOLOGY ORDERABLES Performing Organization Address City/State/[place] [address] (ABNORMAL) Hemogram (11/03/2021 4:15 AM EDT) Patholo gist Method Time Signature WBC 8.4 4.0 - 9.5 [facility](3[facility] LABORATORY RBC 2.30 (L) 4.58 - [facility] [address] [facility] x10(6)/[facility] LABORATORY Hemoglobin 8.5 (L) 13.7 - [facility] 16.5 g/dL [facility] Hematocrit 25.7 (L) 40.5 - [facility] 48.5 % [facility] MCV 111.7 (H) 82.9 - [facility] 93.1 [facility] LABORATORY MCH 37.0 (H) 27.5 - [facility] RACIEL 32.[address] [facility] MCHC 33.1 32.0 - [facility] 35.7 g/dL [facility] Platelets 161 145 - 357 [facility] x10(3)/[facility] LABORATORY RDWSD 68.1 (H) 36.0 - [facility] 45.0 [facility] LABORATORY RDWCV 16.6 (H) 11.4 - [facility] RACIEL 13.8 % [facility] MPV 10.5 7.6 - 12.9 [facility] LABORATORY nRBC % Auto 0.0 % [facility] nRBC Abs Auto 0.000 0.000 - [facility] RACIEL 0.[address] [facility] x10(3)/[facility] LABORATORY Specimen Anatomical Collection Method Collection Time Receive d Time (Source) Location / / Volume Laterality Blood 11/03/2021 4:15 AM 4:44 EDT AM EDT Resulting Agency Comment Spec In Lab Melo Ambrose MD HEMATOLOGY ORDERABLES Performing Organization Address City/State/[place] [address] APTT (11/03/2021 4:15 AM EDT) P athologist Signature PTT 29 25 - 37 sec [facility] Comment: The PTT is NOT [...] Rodrigez MD HEMATOLOGY ORDERABLES Performing Organization Address City/[facility]/[place] [address] (ABNORMAL) Prothrombin Time (11/03/2021 4:15 AM EDT) P athologist Signature PT 13.8 (H) 9.4 - 12.5 [facility] LABORATORY INR 1.2 [facility] Comment: An INR <2.0 indicates [...] Rodrigez MD HEMATOLOGY ORDERABLES Performing Organization Address City/[facility]/[place] [address] (ABNORMAL) Hepatic Function Panel (11/03/2021 4:15 AM EDT) P athologist Signature Total Protein 5.1 (L) 6.1 - 8.0 [facility] g/dL [facility] Albumin 2.4 (L) 3.2 - 5.2 [facility] RACIEL g/dL [facility] AST 87 (H) 0 - 39 [facility] RACIEL unit/L [facility] ALT 42 0 - 55 [facility] unit/L [facility] Alk Phos 691 (H) 40 - 130 [facility] unit/L [facility] Total 2.2 (H) 0.2 - 1.3 [facility] Bilirubin mg/dL [facility] Bili, Direct 1.6 (H) 0.0 - 0.3 [facility] RACIEL mg/dL [facility] Specimen Anatomical Collection Method Collection Time Receive d Time (Source) Location / / Volume Laterality Blood 11/03/2021 4:15 AM 2 4:44 EDT AM EDT Resulting Agency Comment Spec In Lab Raul Rodrigez MD CHEMISTRY ORDERABLES Performing Organization Address City/[facility]/ZIP Code Phon e Number [address] Phosphorus (11/03/2021 4:15 AM EDT) P athologist Signature Phosphorus 3.2 2.5 - 4.5 [facility] RACIEL mg/dL [facility] Specimen Anatomical Collection Method Collection Time Receive d Time (Source) Location / / Volume Laterality Blood 11/03/2021 4:15 AM 2 4:44 EDT AM EDT Resulting Agency Comment Spec In Lab Raul Rodrigez MD CHEMISTRY ORDERABLES Performing Organization Address City/[facility]/ZIP Code Phon e Number [address] (ABNORMAL) Magnesium (11/03/2021 4:15 AM EDT) P athologist Signature Magnesium 0.68 (L) 0.69 - 1.07 [facility] RACIEL mmol/L [facility] Specimen Anatomical Collection Method Collection Time Receive d Time (Source) Location / / Volume Laterality Blood 11/03/2021 4:15 AM 2 4:44 EDT AM EDT Resulting Agency Comment Spec In Lab Raul Rodrigez MD CHEMISTRY ORDERABLES Performing Organization Address City/[facility]/[place] [address] (ABNORMAL) Basic Metabolic Panel (non-fasting) (11/03/2021 4:15 AM EDT) P athologist Signature Glucose Lvl 134 65 - 199 [facility] mg/dL [facility] Comment: Diabetes: >=200 mg/dL plus symp toms BUN 10 10 - 20 mg/dL [facility] Creatinine 0.79 (L) 0.80 - 1.50 mg/dL [facility] Sodium 136 135 - 145 mmol/L [facility] Potassium 3.8 3.5 - 5.0 mmol/L [facility] Comment: Please note: ??Patients with WBC >100,00 0 may have falsely elevated Potassium levels. ??For accurate Potassium quantif ication in these patients send serum separator tube (gold top) for subsequent determinations. ??Contact the Clinical Chemistry Laboratory if there are any qu estions. Chloride 103 98 - 107 mmol/L [facility] CO2 23 22 - 31 mmol/L [facility] Anion Gap 10 5 - 15 mmol/L [facility] Calcium 7.8 (L) 8.5 - 10.5 mg/dL [facility] Estimated GFR 97 >=60 mL/min/1.73 m?? [facility] Comment: This patient's estimated GFR [...] Organization Address City/State/[place] [address] POCT Glucose (11/02/2021 7:52 PM EDT) athologist Signature POC Glucose 103 65 - 199 [facility] mg/dL [facility] Comment: Supplemental ranges: <140 mg/dL before meals <180 mg/dL all other times of the day Specimen Anatomical Collection Method Collection Time Receive d Time (Source) Location / / Volume Laterality Blood 11/02/2021 7:52 PM 2 7:52 EDT PM EDT Ava Victor MD POINT OF CARE TEST ORDERABLE S Performing Organization Address City/State/ZIP Code Phon e Number [address] POCT Glucose (11/02/2021 4:40 PM EDT) athologist Signature POC Glucose 114 65 - 199 [facility] mg/dL [facility] Comment: Supplemental ranges: <140 mg/dL before meals <180 mg/dL all other times of the day Specimen Anatomical Collection Method Collection Time Receive d Time (Source) Location / / Volume Laterality Blood 11/02/2021 4:40 PM 2 4:40 EDT PM EDT Ava Victor MD POINT OF CARE TEST ORDERABLE S Performing Organization Address City/State/ZIP Code Phon e Number [place] [id number]OSP[address] LAB[address]ORY [address] POCT Glucose (11/02/2021 12:04 PM EDT) athologist Signature POC Glucose 92 65 - 199 [facility] mg/dL [facility] Comment: Supplemental ranges: <140 mg/dL before meals <180 mg/dL all other times of the day Specimen Anatomical Collection Method Collection Time Receive d Time (Source) Location / / Volume Laterality Blood 11/02/2021 12:04 11/02/2021 PM EDT 12:04 PM EDT Ava Victor MD POINT OF CARE TEST ORDERABLE S Performing Organization Address City/State/[place] [address] [facility] LAB[address]ATORY Drive (ABNORMAL) POCT Glucose (11/02/2021 8:27 AM EDT) athologist [facility] POC Glucose 218 (H) 65 - 199 [facility] mg/[facility] Comment: Supplemental ranges: <140 mg/dL before meals <180 mg/dL all other times of the day Specimen Anatomical Collection Method Collection Time Receive d Time (Source) Location / / Volume Laterality Blood 11/02/2021 8:27 AM 8:27 EDT AM EDT Ava Victor MD POINT OF CARE TEST ORDERABLE S Performing Organization Address City/State/ZIP Code Phon e Number [address] Differential, Automated (11/02/2021 2:13 AM EDT) athologist [facility] Neutrophils % 62.8 % [facility] Neutr Abs (ANC) 4.65 1.70 - [facility] 6.[address] [facility] x10(3)/[facility] LABORATORY Lymphocytes % 29.4 % [facility] Lymphocytes Abs 2.2 0.9 - 3.2 [facility] x10(3)/[facility] LABORATORY Monocytes % 6.3 % [facility]OR[facility]ORY Monocyte Abs 0.5 0.3 - 0.9 [facility] x10(3)/[facility] LABORATORY Eosinophils % 0.8 % [facility]ORY Eosinophils Abs 0.1 0.0 - 0.4 [facility] x10(3)/[facility] LABORATORY Basophils % 0.3 % [facility] Basophils Abs 0.0 0.0 - 0.1 [facility] x10(3)/[facility] LABORATORY Immature Gran % 0.40 % [facility] Comment: Immature granulocytes(IG's)percentage an d absolute count will include metamyelocytes, myelocytes, and promyelo cytes. Blood smears from CBCs yielding IG's will be scanned manually for concor dance. If this scan disagrees with the automated IG or if promyelocytes are not ed, a manual differential will be performed. Neda Gran Abs 0.03 0.00 - 0.04 x10(3)/[facility] MAR Y [facility] LABORATORY Specimen Anatomical Collection Method Collection Time Receive d Time (Source) Location / / Volume Laterality Blood 11/02/2021 2:13 AM 2 2:17 EDT AM EDT Resulting Agency Comment Spec In Lab Melo Ambrose MD HEMATOLOGY ORDERABLES Performing Organization Address City/State/[place] [address] (ABNORMAL) Hemogram (11/02/2021 2:13 AM EDT) [facility] gist Method Time Signature WBC 7.4 4.0 - 9.5 [facility] x10(3)/[facility] LABORATORY RBC 2.50 (L) 4.58 - [facility] [facility] x10(6)/[facility] LABORATORY Hemoglobin 9.3 (L) 13.7 - [facility] 16.5 g/dL [facility] LABORATORY Hematocrit 27.5 (L) 40.5 - [facility] 48.5 % [facility] MCV 110.0 (H) 82.9 - [facility] 93.1 [facility] LABORATORY MCH 37.2 (H) 27.5 - [facility] 32.[address] [facility] LAB[facility] MCHC 33.8 32.0 - [facility] 35[facility]7 g/dL [facility] LAB[facility] Platelets 170 145 - 357 [facility] x10(3)/[facility] LABORATORY RDWSD 70.0 (H) 36.0 - [facility] RACIEL 45.0 [facility] LABORATORY RDWCV 17.2 (H) 11.4 - [facility] RACIEL 13.8 % [facility] LABORATORY MPV 10.1 7.6 - 12.9 [facility] LABORATORY nRBC % Auto 0.0 % [facility] LABORATORY nRBC Abs Auto 0.000 0.000 - [facility] RACIEL 0.[address] [facility] x10(3)/[facility] LABORATORY Specimen Anatomical Collection Method Collection Time Receive d Time (Source) Location / / Volume Laterality Blood 11/02/2021 2:13 AM 2 2:17 EDT AM EDT Resulting Agency Comment Spec In Lab Melo Ambrose MD HEMATOLOGY ORDERABLES Performing Organization Address City/[facility]/[place] [address] APTT (11/02/2021 2:13 AM EDT) P athologist Signature PTT 28 25 - 37 sec [facility] LABORATORY Comment: The PTT is NOT [...] Rodrigez MD HEMATOLOGY ORDERABLES Performing Organization Address [facility]/[place] [address] (ABNORMAL) Prothrombin Time (11/02/2021 2:13 AM EDT) P athologist Signature PT 13.0 (H) 9.4 - 12.5 [facility] LABORATORY INR 1.1 [facility] LABORATORY Comment: An INR <2.0 indicates [...] Rodrigez MD HEMATOLOGY ORDERABLES Performing Organization Address City/[facility]/[place] [address] (ABNORMAL) Hepatic Function Panel (11/02/2021 2:13 AM EDT) athologist Signature Total Protein 5.4 (L) 6.1 - 8.0 [facility] g/dL [facility] LAB[facility]ORY Albumin 2.6 (L) 3.2 - 5.2 [facility] g/dL [facility] LAB[facility] AST 31 0 - 39 [facility] unit/L [facility] ALT 20 0 - 55 [facility] unit/L [facility] LAB[facility] Alk Phos 437 (H) 40 - 130 [facility] unit/L [facility] LAB[facility] Total 1.9 (H) 0.2 - 1.3 [facility] Bilirubin mg/dL [facility] LABORATORY Bili, Direct 1.3 (H) 0.0 - 0.3 [facility] R[facility]EL mg/dL [facility] LABOR[facility]ORY Specimen Anatomical Collection Method Collection Time Receive d Time (Source) Location / / Volume Laterality Blood 11/02/2021 2:13 AM 2 2:17 EDT AM EDT Resulting Agency Comment Spec In Lab Raul Rodrigez MD CHEMISTRY ORDERABLES Performing Organization Address City/State/ZIP Code Phon e Number [address] Phosphorus (11/02/2021 2:13 AM EDT) athologist Signature Phosphorus 2.8 2.5 - 4.5 [facility] mg/dL [facility] LABORATORY Specimen Anatomical Collection Method Collection Time Receive d Time (Source) Location / / Volume Laterality Blood 11/02/2021 2:13 AM 2 2:17 EDT AM EDT Resulting Agency Comment Spec In Lab Raul Rodrigez MD CHEMISTRY ORDERABLES Performing Organization Address City/State/ZIP Code Phon e Number [address] Magnesium (11/02/2021 2:13 AM EDT) athologist Signature Magnesium 0.72 0.69 - 1.07 [facility] mmol/L [facility] LABORATORY Specimen Anatomical Collection Method Collection Time Receive d Time (Source) Location / / Volume Laterality Blood 11/02/2021 2:13 AM 2 2:17 EDT AM EDT Resulting Agency Comment Spec In Lab Raul Rodrigez MD CHEMISTRY ORDERABLES Performing Organization Address City/State/[place] [address] (ABNORMAL) Basic Metabolic Panel (non-fasting) (11/02/2021 2:13 AM EDT) athologist Signature Glucose Lvl 225 (H) 65 - 199 [facility] mg/dL [facility] LAB[facility]ORY Comment: Diabetes: >=200 mg/dL plus symp toms BUN 9 (L) 10 - 20 mg/dL [facility] LABORATORY Creatinine 0.79 (L) 0.80 - 1.50 mg/dL [facility] LABORATORY Sodium 139 135 - 145 mmol/L [facility] LABORATORY Potassium 4.0 3.5 - 5.0 mmol/L [facility] LABORATORY Comment: Please note: ??Patients with WBC >100,00 0 may have falsely elevated Potassium levels. ??For accurate Potassium quantif ication in these patients send serum separator tube (gold top) for subsequent determinations. ??Contact the Clinical Chemistry Laboratory if there are any qu estions. Chloride 107 98 - 107 mmol/L [facility] LABORATORY CO2 23 22 - 31 mmol/L [facility] LABORATORY Anion Gap 9 5 - 15 mmol/L [facility] LABORATORY Calcium 7.8 (L) 8.5 - 10.5 mg/dL [facility] LABORATORY Estimated GFR 97 >=60 mL/min/1.73 m?? [facility] LABORATORY Comment: This patient's estimated GFR [...] Organization Address City/State/ZIP Code Phon e Number [address] (ABNORMAL) POCT Glucose (11/01/2021 9:08 PM EDT) athologist Signature POC Glucose 226 (H) 65 - 199 [facility] mg/dL [facility] LAB[facility] Comment: Supplemental ranges: <140 mg/dL before meals <180 mg/dL all other times of the day Specimen Anatomical Collection Method Collection Time Receive d Time (Source) Location / / Volume Laterality Blood 11/01/2021 9:08 PM 2 9:08 EDT PM EDT Ava Victor MD POINT OF CARE TEST ORDERABLE S Performing Organization Address City/[facility]/[place] [address] POCT Glucose (11/01/2021 5:05 PM EDT) athologist Signature POC Glucose 150 65 - [address] [facility] mg/dL [facility] Comment: Supplemental ranges: <140 mg/dL before meals <180 mg/dL all other times of the day Specimen Anatomical Collection Method Collection Time Receive d Time (Source) Location / / Volume Laterality Blood 11/01/2021 5:05 PM 2 5:05 EDT PM EDT Ava Victor MD POINT OF CARE TEST ORDERABLE S Performing Organization Address City/State/[place] [address] (ABNORMAL) Hemoglobin and Hematocrit, blood (11/01/2021 1:00 PM EDT) athologist Signature Hemoglobin 8.9 (L) 13.7 - [facility] 16.5 g/dL [facility] LABOR[facility]ORY Hematocrit 26.1 (L) 40.5 - [facility] % [facility] LAB[facility]ORY Specimen Anatomical Collection Method Collection Time Receive d Time (Source) Location / / Volume Laterality Blood 11/01/2021 1:00 PM 2 1:06 EDT PM EDT Resulting Agency Comment Spec In Lab Ava Victor MD HEMATOLOGY ORDERABLES Performing Organization Address City/State/ZIP Code Phon e Number [address] POCT Glucose (11/01/2021 11:05 AM EDT) athologist Signature POC Glucose 186 65 - [address] [facility] mg/dL [facility] Comment: Supplemental ranges: <140 mg/dL before meals <180 mg/dL all other times of the day Specimen Anatomical Collection Method Collection Time Receive d Time (Source) Location / / Volume Laterality Blood 11/01/2021 11:05 11/01/2021 AM EDT 11:05 AM EDT Ava Victor MD POINT OF CARE TEST ORDERABLE S Performing Organization Address City/State/ZIP Code Phon e Number [address] POCT Glucose (11/01/2021 7:30 AM EDT) athologist Signature POC Glucose 164 65 - 199 [facility] mg/dL [facility] LAB[facility]ORY Comment: Supplemental ranges: <140 mg/dL before meals <180 mg/dL all other times of the day Specimen Anatomical Collection Method Collection Time Receive d Time (Source) Location / / Volume Laterality Blood 11/01/2021 7:30 AM 7:30 EDT AM EDT Sloane Kuo MD POINT OF CARE TEST ORDERABLE S Performing Organization Address City/State/ZIP Code Phon e Number [address] Differential, Automated (11/01/2021 2:38 AM EDT) athologist Signature Neutrophils % 58.2 % [facility] LABORATORY Neutr Abs (ANC) 4.36 1.70 - [facility] 6.[address] [facility] x10(3)/[facility] LABORATORY Lymphocytes % 33.8 % [facility] LABORATORY Lymphocytes Abs 2.5 0.9 - 3.2 [facility] x10(3)/[facility] LABORATORY Monocytes % 6.4 % [facility] LABORATORY Monocyte Abs 0.5 0.3 - 0.9 [facility] x10(3)/[facility] LABORATORY Eosinophils % 0.8 % [facility] LABORATORY Eosinophils Abs 0.1 0.0 - 0.4 [facility] x10(3)/[facility] LABORATORY Basophils % 0.3 % [facility] LABORATORY Basophils Abs 0.0 0.0 - 0.1 [facility] x10(3)/[facility] LABORATORY Immature Gran % 0.50 % [facility] LABORATORY Comment: Immature granulocytes(IG's)percentage an d absolute count will include metamyelocytes, myelocytes, and promyelo cytes. Blood smears from CBCs yielding IG's will be scanned manually for concor dance. If this scan disagrees with the automated IG or if promyelocytes are not ed, a manual differential will be performed. Neda Gran Abs 0.04 0.00 - 0.04 x10(3)/[facility] LABORATORY Specimen Anatomical Collection Method Collection Time Receive d Time (Source) Location / / Volume Laterality Blood 11/01/2021 2:38 AM 2:58 EDT AM EDT Resulting Agency Comment Spec In Lab Melo Ambrose MD HEMATOLOGY ORDERABLES Performing Organization Address City/State/[place] [address] (ABNORMAL) Hemogram (11/01/2021 2:38 AM EDT) Patholo gist Method Time Signature WBC 7.5 4.0 - 9.5 [facility] x10(3)/[facility] LABORATORY RBC 2.36 (L) 4.58 - [facility] 5.[address] [facility] x10(6)/[facility] LABORATORY Hemoglobin 8.6 (L) 13.7 - [facility] 16.5 g/dL [facility] LABORATORY Hematocrit 25.9 (L) 40.5 - [facility] 48.5 % [facility] LABORATORY MCV 109.7 (H) 82.9 - [facility] 93.1 [facility] LABORATORY MCH 36.4 (H) 27.5 - [facility] 32.[address] [facility] LABORATORY MCHC 33.2 32.0 - [facility] RACIEL 35.7 g/dL [facility] LABORATORY Platelets 195 145 - 357 [facility] x10(3)/[facility] LABORATORY RDWSD 72.5 (H) 36.0 - [facility] 45.0 [facility] LABORATORY RDWCV 18.0 (H) 11.4 - [facility] 13.[facility] % [facility] LABORATORY MPV 10.2 7.6 - 12.9 [facility] LABORATORY nRBC % Auto 0.0 % [facility] LABORATORY nRBC Abs Auto 0.000 0.000 - [facility] RACIEL 0.[address] [facility] x10(3)/[facility] LABORATORY Specimen Anatomical Collection Method Collection Time Receive d Time (Source) Location / / Volume Laterality Blood 11/01/2021 2:38 AM 2 2:58 EDT AM EDT Resulting Agency Comment Spec In Lab Melo Ambrose MD HEMATOLOGY ORDERABLES Performing Organization Address City/State/[place] [address] APTT (11/01/2021 2:38 AM EDT) P athologist Signature PTT 28 25 - 37 sec [facility] LABORATORY Comment: The PTT is NOT [...] Organization Address City/State/[place] [address] (ABNORMAL) Prothrombin Time (11/01/2021 2:38 AM EDT) P athologist Signature PT 13.4 (H) 9.4 - 12.5 [facility] [address] [facility] LABORATORY INR 1.2 [facility] LABORATORY Comment: An INR <2.0 indicates [...] / Volume Laterality Blood 11/01/2021 2:38 AM 2:58 EDT AM EDT Resulting Agency Comment Spec In Lab Raul Rodrigez MD HEMATOLOGY ORDERABLES Performing Organization Address City/[facility]/ZIP Code Phon e Number [place] [id number] (ABNORMAL) Hepatic Function Panel (11/01/2021 2:38 AM EDT) P athologist Signature Total Protein 5.1 (L) 6.1 - 8.0 [facility] g/dL [facility] LAB[facility]ORY Albumin 2.5 (L) 3.2 - 5.2 [facility] g/dL [facility] LAB[facility]ORY AST 19 0 - 39 [facility] unit/L [facility] LAB[facility] ALT 18 0 - 55 [facility] unit/L [facility] LABORATORY Alk Phos 345 (H) 40 - 130 [facility] unit/L [facility] LAB[facility]ORY Total 1.8 (H) 0.2 - 1.3 [facility] Bilirubin mg/dL [facility] LABORATORY Bili, Direct 1.2 (H) 0.0 - 0.3 [facility] mg/dL [facility] LABORATORY Specimen Anatomical Collection Method Collection Time Receive d Time (Source) Location / / Volume Laterality Blood 11/01/2021 2:38 AM 2 2:58 EDT AM EDT Resulting Agency Comment Spec In Lab Raul Rodrigez MD CHEMISTRY ORDERABLES Performing Organization Address City/[facility]/ZIP Code Phon e Number [address] Phosphorus (11/01/2021 2:38 AM EDT) P athologist Signature Phosphorus 2.6 2.5 - 4.5 [facility] Specimen Anatomical Collection Method Collection Time Receive d Time (Source) Location / / Volume Laterality Blood 11/01/2021 2:38 AM 2 2:58 EDT AM EDT Resulting Agency Comment Spec In Lab Raul Rodrigez MD CHEMISTRY ORDERABLES Performing Organization Address City/[facility]/ZIP Code Phon e Number [address] Magnesium (11/01/2021 2:38 AM EDT) P athologist Signature Magnesium 0.77 0.69 - 1.07 [facility] mmol/L [facility] LAB[facility]ORY Specimen Anatomical Collection Method Collection Time Receive d Time (Source) Location / / Volume Laterality Blood 11/01/2021 2:38 AM 2 2:58 EDT AM EDT Resulting Agency Comment Spec In Lab Raul Rodrigez MD CHEMISTRY ORDERABLES Performing Organization Address City/[facility]/ZIP [facility] [place] [address] (ABNORMAL) Basic Metabolic Panel (non-fasting) (11/01/2021 2:38 AM EDT) P athologist Signature Glucose Lvl 170 65 - 199 [facility] mg/dL [facility] Comment: Diabetes: >=200 mg/dL plus symp toms BUN 9 (L) 10 - 20 mg/dL [facility] LABORATORY Creatinine 0.69 (L) 0.80 - 1.50 mg/dL [facility] LABORATORY Sodium 136 135 - 145 mmol/L [facility] LABORATORY Potassium 4.2 3.5 - 5.0 mmol/L [facility] LABORATORY Comment: Please note: ??Patients with WBC >100,00 0 may have falsely elevated Potassium levels. ??For accurate Potassium quantif ication in these patients send serum separator tube (gold top) for subsequent determinations. ??Contact the Clinical Chemistry Laboratory if there are any qu estions. Chloride 106 98 - 107 mmol/L [facility] LABORATORY CO2 22 22 - 31 mmol/L [facility] LABORATORY Anion Gap 8 5 - 15 mmol/L [facility] LABORATORY Calcium 7.6 (L) 8.5 - 10.5 mg/dL [facility] LABORATORY Estimated GFR 101 >=60 mL/min/1.73 m?? [facility] LABORATORY Comment: This patient's estimated GFR [...] Organization Address City/State/[place] [address] POCT Glucose (10/31/2021 8:14 PM EDT) P athologist Signature POC Glucose 185 65 - 199 [facility] mg/dL [facility] Comment: Supplemental ranges: <140 mg/dL before meals <180 mg/dL all other times of the day Specimen Anatomical Collection Method Collection Time Receive d Time (Source) Location / / Volume Laterality Blood 10/31/2021 8:14 PM 2 8:14 EDT PM EDT Sloane Kuo MD POINT OF CARE TEST ORDERABLE S Performing Organization Address City/State/[place] [address] POCT Glucose (10/31/2021 5:15 PM EDT) athologist Signature POC Glucose 183 65 - 199 [facility] mg/dL [facility] Comment: Supplemental ranges: <140 mg/dL before meals <180 mg/dL all other times of the day Specimen Anatomical Collection Method Collection Time Receive d Time (Source) Location / / Volume Laterality Blood 10/31/2021 5:15 PM 2 5:15 EDT PM EDT Sloane Kuo MD POINT OF CARE TEST ORDERABLE S Performing Organization Address City/State/[place] [address] POCT Glucose (10/31/2021 3:12 PM EDT) athologist Signature POC Glucose 165 65 - 199 [facility] mg/dL [facility] Comment: Supplemental ranges: <140 mg/dL before meals <180 mg/dL all other times of the day Specimen Anatomical Collection Method Collection Time Receive d Time (Source) Location / / Volume Laterality Blood 10/31/2021 3:12 PM 2 3:12 EDT PM EDT Sloane Kuo MD POINT OF CARE TEST ORDERABLE S Performing Organization Address City/State/[place] [address] (ABNORMAL) Basic Metabolic Panel (non-fasting) (10/31/2021 1:55 PM EDT) athologist Signature Glucose Lvl 87 65 - 199 [facility] mg/dL [facility] Comment: Diabetes: >=200 mg/dL plus symp toms BUN 9 (L) 10 - 20 mg/dL [facility] LABORATORY Creatinine 0.67 (L) 0.80 - 1.50 mg/dL [facility] LABORATORY Sodium 135 135 - 145 mmol/L [facility] Potassium 3.6 3.5 - 5.0 mmol/L [facility] LABOR[facility] Comment: Please note: ??Patients with WBC >100,00 0 may have falsely elevated Potassium levels. ??For accurate Potassium quantif ication in these patients send serum separator tube (gold top) for subsequent determinations. ??Contact the Clinical Chemistry Laboratory if there are any qu estions. Chloride 103 98 - 107 mmol/L [facility]ORATORY CO2 23 22 - 31 mmol/L [facility] LABORATORY Anion Gap 9 5 - 15 mmol/L [facility] LABORATORY Calcium 8.1 (L) 8.5 - 10.5 mg/dL [facility] LABORATORY Estimated GFR 102 >=60 mL/min/1.73 m?? [facility] Comment: This patient's estimated GFR [...] Organization Address City/State/[place] [address] POCT Glucose (10/31/2021 11:09 AM EDT) athologist Signature POC Glucose 140 65 - 199 [facility] mg/dL [facility] Comment: Supplemental ranges: <140 mg/dL before meals <180 mg/dL all other times of the day Specimen Anatomical Collection Method Collection Time Receive d Time (Source) Location / / Volume Laterality Blood 10/31/2021 11:09 10/31/2021 AM EDT 11:09 AM EDT Sloane Kuo MD POINT OF CARE TEST ORDERABLE S Performing Organization Address City/State/[place] [address] POCT Glucose (10/31/2021 7:31 AM EDT) athologist Signature POC Glucose 126 65 - 199 [facility] RACIEL mg/dL [facility] Comment: Supplemental ranges: <140 mg/dL before meals <180 mg/dL all other times of the day Specimen Anatomical Collection Method Collection Time Receive d Time (Source) Location / / Volume Laterality Blood 10/31/2021 7:31 AM 2 7:31 EDT AM EDT Sloane Kuo MD POINT OF CARE TEST ORDERABLE S Performing Organization Address City/State/[place] [address] POCT Glucose (10/31/2021 6:36 AM EDT) athologist Signature POC Glucose 129 65 - 199 [facility] mg/dL [facility] Comment: Supplemental ranges: <140 mg/dL before meals <180 mg/dL all other times of the day Specimen Anatomical Collection Method Collection Time Receive d Time (Source) Location / / Volume Laterality Blood 10/31/2021 6:36 AM 2 6:36 EDT AM EDT Sloane Kuo MD POINT OF CARE TEST ORDERABLE S Performing Organization Address City/State/[place] [address] Type and Screen Validity (10/31/2021 4:13 AM EDT) [facility] Method Time Signature T&S only valid [facility] Comment: This Type and Screen result is only valid at the [facility] Specimen Anatomical Collection Method Collection Time Receive d Time (Source) Location / / Volume Laterality Blood 10/31/2021 4:13 AM 2 4:33 EDT AM EDT Resulting Agency Comment Spec In Lab Sloane Kuo MD BLOOD BANK ORDERABLES Performing Organization Address City/[facility]/[place] [address] Antibody screen (10/31/2021 4:13 AM EDT) [facility] Method Time Signature Ab Screen Negative [facility] LABORATORY Expires at 11/03/2021 [facility] [id number] on: [facility] Specimen Anatomical Collection Method Collection Time Receive d Time (Source) Location / / Volume Laterality Blood 10/31/2021 4:13 AM 2 4:33 EDT AM EDT Resulting Agency Comment Spec In Lab Sloane Kuo MD BLOOD BANK ORDERABLES Performing Organization Address City/[facility]/[place] [address] ABO/Rh Typing (10/31/2021 4:13 AM EDT) P athologist Signature ABORh Type A Pos [facility] LABORATORY Specimen Anatomical Collection Method Collection Time Receive d Time (Source) Location / / Volume Laterality Blood 10/31/2021 4:13 AM 2 4:33 EDT AM EDT Resulting Agency Comment Spec In Lab Sloane Kuo MD BLOOD BANK ORDERABLES Performing Organization Address City/[facility]/ZIP Code Phon e Number [address] Differential, Automated (10/31/2021 4:13 AM EDT) P athologist Signature Neutrophils % 67.2 % [facility] LABORATORY Neutr Abs (ANC) 5.72 1.70 - [facility] 6.[address] [facility] x10(3)/[facility] LABORATORY Lymphocytes % 26.4 % [facility] LABORATORY Lymphocytes Abs 2.2 0.9 - 3.2 [facility] x10(3)/[facility] LABORATORY Monocytes % 5.4 % [facility] LABORATORY Monocyte Abs 0.5 0.3 - 0.9 [facility] x10(3)/[facility] LABORATORY Eosinophils % 0.4 % [facility] LABORATORY Eosinophils Abs 0.0 0.0 - 0.4 [facility] x10(3)/[facility] LABORATORY Basophils % 0.2 % [facility] LABORATORY Basophils Abs 0.0 0.0 - 0.1 [facility] x10(3)/[facility] LABORATORY Immature Gran % 0.40 % [facility] LABORATORY Comment: Immature granulocytes(IG's)percentage an d absolute count will include metamyelocytes, myelocytes, and promyelo cytes. Blood smears from CBCs yielding IG's will be scanned manually for concor dance. If this scan disagrees with the automated IG or if promyelocytes are not ed, a manual differential will be performed. Neda Gran Abs 0.03 0.00 - 0.04 x10(3)/[facility] LABORATORY Specimen Anatomical Collection Method Collection Time Receive d Time (Source) Location / / Volume Laterality Blood 10/31/2021 4:13 AM 4:31 EDT AM EDT Resulting Agency Comment Spec In Lab Melo Ambrose MD HEMATOLOGY ORDERABLES Performing Organization Address City/State/[place] [address] (ABNORMAL) Hemogram (10/31/2021 4:13 AM EDT) P athologist Signature WBC 8.5 4.0 - 9.5 [facility] x10(3)/[facility] LABORATORY RBC 2.25 (L) 4.58 - [facility] 5.[address] [facility] HOSPITAL x10(6)/[facility] LABORATORY Hemoglobin 8.5 (L) 13.7 - [facility] 16.5 g/dL [facility] LABORATORY Hematocrit 24.5 (L) 40.5 - [facility] 48.5 % [facility] MCV 108.9 (H) 82.9 - [facility] 93.1 [facility] LABORATORY Comment: Interpret results with Caution. Specimen rerun and specimen ID confirmed.. This result has been called to SULEMA RODRÍGUEZ by Erlin Goldstein on 10 31 2021 at 0513, and has been read back. MCH 37.8 (H) 27.5 - 32.1 pg [facility] LABORATORY MCHC 34.7 32.0 - 35.7 g/dL [facility] LABORATORY Platelets 197 145 - 357 x10(3)/mcL [facility] LABORATORY RDWSD 72.8 (H) 36.0 - 45.0 [facility] LABORATORY RDWCV 18.3 (H) 11.4 - 13.8 % [facility] LABORATORY MPV 10.2 7.6 - 12.9 [facility] LABORATORY nRBC % Auto 0.0 % [facility] LABORATORY nRBC Abs Auto 0.000 0.000 - 0.000 x10(3)/[facility] LABORATORY Specimen Anatomical Collection Method Collection Time Receive d Time (Source) Location / / Volume Laterality Blood 10/31/2021 4:13 AM 2 4:31 EDT AM EDT Resulting Agency Comment Spec In Lab Melo Ambrose MD HEMATOLOGY ORDERABLES Performing Organization Address City/State/[place] [address] APTT (10/31/2021 4:13 AM EDT) P athologist Signature PTT 27 25 - 37 sec [facility] LABORATORY Comment: The PTT is NOT appropriate for heparin m onitoring. Use the Anti-Xa level for heparin monitoring (HEP UFH) or LMWH mon itoring (HEP LMW). A PTT less than 37 seconds generally indicates adequate hem ostasis. Specimen Anatomical Collection Method Collection Time Receive d Time (Source) Location / / Volume Laterality Blood 10/31/2021 4:13 AM 2 4:31 EDT AM EDT Resulting Agency Comment Spec In Lab Raul Rodrigez MD HEMATOLOGY ORDERABLES Performing Organization Address City/State/[place] [address] (ABNORMAL) Prothrombin Time (10/31/2021 4:13 AM EDT) athologist Signature PT 13.2 (H) 9.4 - 12.5 [facility] [address] [facility] INR 1.2 [facility] LABORATORY Comment: An INR <2.0 indicates [...] Volume Laterality Blood 10/31/2021 4:13 AM 2 4:31 EDT AM EDT Resulting Agency Comment Spec In Lab Raul Rodrigez MD HEMATOLOGY ORDERABLES Performing Organization Address City/[facility]/[place] [address] (ABNORMAL) Hepatic Function Panel (10/31/2021 4:13 AM EDT) athologist Signature Total Protein 5.4 (L) 6.1 - 8.0 KAMAL[facility]IT RACIEL g/dL [facility] Albumin 2.6 (L) 3.2 - 5.2 [facility]ACI[facility] g/dL [facility] AST 24 0 - 39 [facility] RACIEL unit/L [facility] ALT 21 0 - 55 KAMALJIT RACIEL unit/L [facility] Alk Phos 395 (H) 40 - 130 KAMALJ[facility] RACIEL unit/L [facility] Total 2.1 (H) 0.2 - 1.3 [facility] Bilirubin mg/dL [facility] Bili, Direct 1.4 (H) 0.0 - 0.3 [facility]ACI[facility] mg/dL [facility] LABOR[facility]ORY Specimen Anatomical Collection Method Collection Time Receive d Time (Source) Location / / Volume Laterality Blood 10/31/2021 4:13 AM 2 4:30 EDT AM EDT Resulting Agency Comment Spec In Lab Raul Rodrigez MD CHEMISTRY ORDERABLES Performing Organization Address City/State/ZIP Code Phon e Number [address] Phosphorus (10/31/2021 4:13 AM EDT) P athologist Signature Phosphorus 3.0 2.5 - 4.5 [facility] mg/dL [facility] LABOR[facility]ORY Specimen Anatomical Collection Method Collection Time Receive d Time (Source) Location / / Volume Laterality Blood 10/31/2021 4:13 AM 2 4:30 EDT AM EDT Resulting Agency Comment Spec In Lab Raul Rodrigez MD CHEMISTRY ORDERABLES Performing Organization Address City/[facility]/ZIP Code Phon e Number [address] Magnesium (10/31/2021 4:13 AM EDT) athologist Signature Magnesium 0.71 0.69 - 1.07 [facility] mmol/L [facility] LAB[facility]ORY Specimen Anatomical Collection Method Collection Time Receive d Time (Source) Location / / Volume Laterality Blood 10/31/2021 4:13 AM 2 4:30 EDT AM EDT Resulting Agency Comment Spec In Lab Raul Rodrigez MD CHEMISTRY ORDERABLES Performing Organization Address City/[facility]/[place] [address] (ABNORMAL) Basic Metabolic Panel (non-fasting) (10/31/2021 4:13 AM EDT) P athologist Signature Glucose Lvl 92 65 - 199 [facility] mg/dL [facility] Comment: Diabetes: >=200 mg/dL plus symp toms BUN 10 10 - 20 mg/dL [facility] LABORATORY Creatinine 0.56 (L) 0.80 - 1.50 mg/dL [facility] LABOR[facility] Sodium 133 (L) 135 - 145 mmol/L [facility] Potassium 3.4 (L) 3.5 - 5.0 mmol/L [facility] LABOR[facility] Comment: Please note: ??Patients with WBC >100,00 0 may have falsely elevated Potassium levels. ??For accurate Potassium quantif ication in these patients send serum separator tube (gold top) for subsequent determinations. ??Contact the Clinical Chemistry Laboratory if there are any qu estions. Chloride 104 98 - 107 mmol/L [facility]OR[facility] CO2 23 22 - 31 mmol/L [facility]OR[facility] Anion Gap 6 5 - 15 mmol/L [facility] LABORATORY Calcium 7.9 (L) 8.5 - 10.5 mg/dL [facility] LABORATORY Estimated GFR 108 >=60 mL/min/1.73 m?? [facility] LABORATORY Comment: This patient's estimated GFR [...] Organization Address City/State/[place] [address] POCT Glucose (10/31/2021 3:18 AM EDT) P athologist Signature POC Glucose 88 65 - 199 [facility] mg/dL [facility] LAB[facility] Comment: Supplemental ranges: <140 mg/dL before meals <180 mg/dL all other times of the day Specimen Anatomical Collection Method Collection Time Receive d Time (Source) Location / / Volume Laterality Blood 10/31/2021 3:18 AM 2 3:18 EDT AM EDT Sloane Kuo MD POINT OF CARE TEST ORDERABLE S Performing Organization Address City/State/ZIP Code Phon e Number [address] POCT Glucose (10/31/2021 12:09 AM EDT) athologist Signature POC Glucose 87 65 - 199 [facility] RACI[facility] mg/dL [facility] LAB[facility] Comment: Supplemental ranges: <140 mg/dL before meals <180 mg/dL all other times of the day Specimen Anatomical Collection Method Collection Time Receive d Time (Source) Location / / Volume Laterality Blood 10/31/2021 12:09 10/31/2021 AM EDT 12:09 AM EDT Sloane Kuo MD POINT OF CARE TEST ORDERABLE S Performing Organization Address City/State/ZIP Code Phon e Number [address] POCT Glucose (10/30/2021 11:09 PM EDT) athologist Signature POC Glucose 71 65 - 199 [facility] RACIEL mg/dL [facility] LAB[facility] Comment: Supplemental ranges: <140 mg/dL before meals <180 mg/dL all other times of the day Specimen Anatomical Collection Method Collection Time Receive d Time (Source) Location / / Volume Laterality Blood 10/30/2021 11:09 10/30/2021 PM EDT 11:09 PM EDT Sloane Kuo MD POINT OF CARE TEST ORDERABLE S Performing Organization Address City/State/[place] [address] (ABNORMAL) POCT Glucose (10/30/2021 9:10 PM EDT) athologist Signature POC Glucose 248 (H) 65 - 199 [place] [place] mg/dL [facility] LAB[facility] Comment: Supplemental ranges: <140 mg/dL before meals <180 mg/dL all other times of the day Specimen Anatomical Collection Method Collection Time Receive d Time (Source) Location / / Volume Laterality Blood 10/30/2021 9:10 PM 9:10 EDT PM EDT Sloane Kuo MD POINT OF CARE TEST ORDERABLE S Performing Organization Address City/[facility]/ZIP Code Phon e Number [address] (ABNORMAL) POCT Glucose (10/30/2021 7:03 PM EDT) P athologist Signature POC Glucose 281 (H) 65 - 199 [facility] mg/dL [facility] LABOR[facility] Comment: Supplemental ranges: <140 mg/dL before meals <180 mg/dL all other times of the day Specimen Anatomical Collection Method Collection Time Receive d Time (Source) Location / / Volume Laterality Blood 10/30/2021 7:03 PM 7:03 EDT PM EDT Sloane Kuo MD POINT OF CARE TEST ORDERABLE S Performing Organization Address [facility] Code Phon e Number [address] EKG 12 Lead (10/30/2021 5:50 PM EDT) Component Value Ref Range Test Analysis Performed Pathologis t Method Time At Signature Ventricular rate 66 BPM MUSE SYSTEM Atrial Rate 66 BPM MUSE SYSTEM P-R Interval 172 ms MUSE SYSTEM QRS Duration 152 ms MUSE SYSTEM Q-T Interval 436 ms MUSE SYSTEM QTC Calculated 457 ms MUSE SYSTEM (Bezet) Calculated P Blakeslee 65 degrees MUSE SYSTEM Calculated R Blakeslee 69 degrees MUSE SYSTEM Calculated T Blakeslee 66 degrees MUSE SYSTEM INTERPRETATION Normal sinus rhythm MUSE SYSTEM Left bundle branch block Abnormal ECG When compared with ECG of 26-APR-2008 07:39, No significant change was found Confirmed by Sienna Tian (1950) on 10/31/2021 5:39:51 P M Specimen Anatomical Collection Method Collection Time Receive d Time (Source) Location / / Volume Laterality 10/30/2021 5:50 PM 5:39 EDT PM EDT Sloane Kuo MD ECG ORDERABLES Performing Organization Address City/[facility]/ZIP Code Phon e Number MUSE SYSTEM POCT Glucose (10/30/2021 4:17 PM EDT) P athologist Signature POC Glucose 150 65 - 199 [facility] mg/dL [facility] Comment: Supplemental ranges: <140 mg/dL before meals <180 mg/dL all other times of the day Specimen Anatomical Collection Method Collection Time Receive d Time (Source) Location / / Volume Laterality Blood 10/30/2021 4:17 PM 2 4:17 EDT PM EDT Sloane Kuo MD POINT OF CARE TEST ORDERABLE S Performing Organization Address City/State/[place] [address] UPPER GI ENDOSCOPY (10/30/2021 2:40 PM EDT) Component Value Ref Test Analysis Performed At [facility] Range Method Time Signature UPPER GI [facility] PROVATION ENDOSCOPY Endoscopy Procedure Date: 10/30/2021 2:40 PM ? Patient Name: John Duarte ? Date of : 1955 ? Age: 66 ? Order #: [id number] ? Instrument Name: [id number] ? Procedure: ? Upper GI endoscopy Indications: ? Melena Providers: ? Raul Rodrigez MD, Carolee ? Julita Isabel RN, ? [...] Procedure Code(s): ? --- Professional --- ? 80221, Esophagogastroduode noscopy, ? flexible, transoral; diagn ostic, ? including collection of sp ecimen(s) ? by brushing or washing, wh en ? performed (separate proced ure) CPT copyright 2020 [employer]. All rights reserved. The codes documented in this report are preliminary and upon computer tech review may be revised to meet current [...] POC Glucose 191 65 - 199 K[facility]AL[facility] SCHRADER mg/dL [facility] LAB[facility] Comment: Supplemental ranges: <140 mg/dL before meals <180 mg/dL all other times of the day Specimen Anatomical Collection Method Collection Time Receive d Time (Source) Location / / Volume Laterality Blood 10/30/2021 2:04 PM 2 2:04 EDT PM EDT Raul Rodrigez MD POINT OF CARE TEST ORDERABLE S Performing Organization Address City/State/ZIP Code Phon e Number [place] [id number]OS[address]ITAL [address] documented in this encounter Visit Diagnoses Diagnosis Preop cardiovascular exam Pre-operative cardiovascular examination Malignant neoplasm of head of pancreas Pancreatic adenocarcinoma Malignant neoplasm of pancreas, part uns pecified Anemia due to chronic blood loss 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 d loss (chronic) Malignant neoplasm of head of pancreas documented [...] Given 10/31/2021 5:15 PM EDT 40 mg dextrose 10% infusion 250 mL, at 1,000 [...] Discontinued, Routine insulin lispro (HumaLOG;Admelog) (100 Given 11/03/2021 [...] TIMES DAILY BEFORE MEALS, First dose on Wed10/30/21 at 1800, [...] Given 11/01/2021 6:02 PM EDT 1 Units lidocaine (Xylocaine) 1% (10 mg/mL) inje ction [...] Given 11/01/2021 8:06 AM EDT 37.5 mg metoprolol tartrate (Lopressor) tablet 12.5 Given 10/20 11:27 AM EDT 12.5 mg mg 12.5 mg, Oral, EVERY 12 HOURS SCHEDULED (2 times per day), First dose on Yanet 10/30/21 at 2100, Until Discontinued, Routine Given 11/02/2021 [...] Given 11/01/2021 8:06 AM EDT 40 mg sodium chloride 0.9 % (flush) (BD PosiFl [...] Routine sodium chloride 0.9% infusion New Bag 11/03/2021 [...] 11/02/2021 11/03/2021 atorvastatin (Lipitor) tablet 40 mg 180 (Given - Prov ider: Manav Palacios RN) 1641 (Given - Provider: Manav Palacios RN) 40 mg, Oral, EVERY EVENING, First dose ( after last modification) on Wed10/31/21 at 1700, Until Discontinued, Routine insulin glargine-ygfn (Semglee) (100 uni t/mL) subcutaneous injection vial 5 Units 1301 (Given - Provid er: Haylee Christian RN) 5 Units, Subcutaneous, DAILY, First dose on Wed11/03/21 at 0900, Until Discontinued, Routine insulin lispro (HumaLOG;Admelog) (100 un it/mL) subcutaneous injection vial 0-8 Units 0911 (Given - Provider: Manav lujan RN)1200 (Not Given - Provider: Manav Palacios RN - Reason: See comment - Comment: skipped lunch)1700 (Not Given - Provider: Suraj Cobb RN - Reason: Patient/family refused) 0944 (Given - Provider: Manav Palacios RN)1200 (Not Given - Provider: Manav Palacios RN - Reason: See comment - Comment: pt skipping lunch)1748 (Given - Provider: Manav Palacios RN) 0800 (Not Given - Provider: Katharine alba RN - Reason: See comment - Comment: pt at [place])1416 (Given - Provider: Haylee Christian RN) 0-8 Units, Subcutaneous, 3 TIMES DAILY W ITH MEALS, First dose on Wed10/31/21 at 1700, Until Discontinued, [employer] Give 1 unit for every 10 grams carbohydrate. Hold if not eating or if BG less than 70 mg/dL., Routine insulin lispro (HumaLOG;Admelog) (100 un it/mL) subcutaneous injection vial 1-6 Units(Linked Group 1) 0805 (Given - Provider: Manav lujan RN)1123 (Given - Provider: Manav Palacios RN)1802 (Given - Provider: Manav Palacios RN) 0829 (Given - Provider: Manav lujan RN)1130 [...] DAILY B EFORE MEALS, First dose on Yanet 10/30/21 at [...] 1% (10 mg/mL) injection 10 mg (COMPLETED) 829 (Given - Provider: Sergo Gaviria MD) 10 mg, Subcutaneous, ONCE, 1 dose, On Mo n 11/03/21 at 0830, For use in Interventional Radiology (IR) only for procedure with direct provider supervision and verbal order., Angio/IR (Intra-Procedure), Routine losartan (Cozaar) tablet 37.5 mg 08 (Given - Provide r: Manav Palacios RN) 0830 (Given - Provider: Manav Palacios RN) 1126 ( Given - Provider: Haylee Christian, HENRIETTA) 37.5 mg, Oral, DAILY, First dose on Yanet 8/11/22 at 2000, Until Discontinued, Routine magnesium sulfate 2 g in sterile water 50 mL infusion (COMPLETED ) 1300 (New Bag - Provider: Haylee Christian, HENRIETTA)1500 (Stopped - Provider: Katharine Mishra RN) 2 g, Intravenous, ONCE, 1 dose, On Wed at 1245, Administer over 120 Minutes metoprolol tartrate (Lopressor) tablet 12.5 mg 0806 (G iven - Provider: Manav Palacios RN)2120 (Given - Provider: Suraj Cobb RN) 0829 (Given - Provider: Manav Palacios RN)2046 (Given - Provider: Suraj Cobb, HENRIETTA) 1127 [...] RN) 1142 (Patch Applied - Provider: Haylee Christian, [place]ENRIETTA) 21 mg (1 patch), Transdermal, DAILY, Fir [...] hr patch Patch Verific ation(Linked Group 2) 09 (Patch (dose and location) verified - Provider: Manav Palacios RN - Comment: 21mg to R arm)2100 (Patch (dose and location) verified - Provider: Suraj Cobb RN) 09 (Patch (dose and location) verified - Provider: Manav Palacios RN - Comment: l arm)2099 (Patch (dose and location) verified - Provider: Suraj Cobb RN) 09 (Patch (dose and location) verified - Provider: Haylee Christian RN) Transdermal, 2 TIMES DAILY, First dose o n Wed10/31/21 at 0545, Until Discontinued, Verify nicotine 21 mg/24 hr patch pantoprazole EC (Protonix) tablet 40 mg 0806 (Given - Provider: Manav Palacios RN) 0829 (Given - Provider: Manav Palacios RN) 112 ( Given - Provider: Haylee Christian RN) 40 mg, Oral, DAILY, First dose on 02/10 at 1630, Until Discontinued, DO NOT CRUSH OR OPEN, Routine sodium chloride 0.9 % (flush) (BD PosiFlush Normal Jesus ine 0.9) flush 5 mL 08 (Given - Provider: Manav Palacios RN)2118 (Given - Provider: Suraj Macdonald RN) 08 (Not Given - Provider: Manav qiu RN - Reason: See comment - Comment: no access)2045 (Given - Provider: Suraj Cobb RN) 1133 (Given - Provider: Haylee Christian RN) [...] (CANCELED) 1802 (New Bag - Provider: Manav Palacios, HENRIETTA) 0227 (Stopped - Provider: Suraj diaz RN - Comment: no PIV access; ok per MD)0929 (Stopped - Provider: Manav Palacios RN) 100 [...] 25-50 mcg 0829 (Given - Provider: Joelle Khalil, HENRIETTA)0838 (Given - Provider: Joelle Khalil, RN)0850 (Given - Provider: Joelle Khalil RN) 25-50 [...] 1743, Until 11/03/21 at 1820, Low blood sugar, For BG [...] Subcutaneous, ONCE PRN, 1 dose, Starting on Wed10/30/21 at 1609, Until Wed11/03/21 at 1820, for [...] EVERY 2 HOURS PRN, Startin g on 11/01/21 at 0726, Until Wed11/03/21 at 1820, Smoking [...] Yanet 10/30/21 at 1743, Until Wed11/03/21 at 1820
For BG 50-70 mg/dL: Oral [...] episode. & nbsp; For persistent hypoglycemia, con roofer apprentice longer-acting treatment for the duration of the [...]
Routine documented in this encounter Care Teams Director Of Field Service Relationship Specialty Start Date End Date William Wade PA PCP - General Family Medicine 08/31/[address] [place] [address] [place] [address] documented as of this encounter
--- OUTSIDE RECORDS SUMMARY | 2021-11-07 00:53 | XMS_ITS | Encounter Summary ---
:1955 Author Organization [facility] [place] [address] Care Team Providers Name Role Phone William Wade Primary Care Provider Encounter Details Date Type Department Care Team Description 10/28/2021 Orders Only Hematology and Oncology Eric Streeter , Ulcerated, duodenum at [facility] [place] [address] ONCOLOGY [phone] [place] [id number] (Wo rk) Social History Tobacco Use Types [...] place to sleep or slept in a snf (including now)? Sex Assigned at Date Recorded Not on file documented as of this encounter Plan of Treatment Upcoming Encounters Date Type Specialty Care Team Description 11/07/2021 Office Visit Hematology and Oncology Eric Streeter MD [facility] ONCOLOGY [place], [place] [address] (Wo rk) 11/07/2021 Infusion Hematology and Oncology 11/07/2021 Office Visit Hematology and Oncology Irena Hinojosa RD [facility] DRIVE [place] [address] (Wo rk) 11/21/2021 Office Visit Hematology and Oncology Eric Streeter MD [facility] ONCOLOGY [place], [place] [address] (Wo rk) 11/21/2021 Infusion Hematology and Oncology 12/05/2021 Office Visit Hematology and Oncology Eric Streeter MD [facility] ONCOLOGY [place], [place] [address] (Wo rk) 12/05/2021 Infusion Hematology and Oncology 12/19/2021 Office Visit Hematology and Oncology Eric Streeter MD [facility] ONCOLOGY [place], [place] [address] (Wo rk) 12/19/2021 Infusion Hematology and Oncology Scheduled Orders Name Type Priority Associated Diagnoses Order S chedule CBC (with Diff) Lab Routine Ulcerated, duodenum Expec jeffy: 10/29/2021 (Approximate), Expires: 2022 Comprehensive metabolic Lab Routine Ulcerated, duoden um Expected: 10/29/2021 panel (non-fasting) (Approxi mate), Expires: 2022 documented as of this encounter Visit Diagnoses Diagnosis Ulcerated, duodenum Duodenal ulcer, unspecified as acute or chronic, without hemorrhage, perforation, or obstruction Malignant neoplasm of head of pancreas documented in this encounter Care Teams Campaign Coordinator Relationship Specialty Start Date End Date William Wade PA PCP - General Family Medicine 08/31/[address] [place] [address] [place] [address] documented as of this encounter
--- OUTSIDE RECORDS SUMMARY | 2021-11-07 00:53 | XMS_ITS | Encounter Summary ---
:1955 Author Organization [facility] [place] [address] Care Team Providers Name Role Phone William Wade Primary Care Provider Encounter Details Date Type Department Care Team Description 10/29/2021 Telephone Gastroenterology at [facility] [place] Verona Romero [facility] [place] [address] Social History Tobacco Use Types Packs/Day [...] place to sleep or slept in a usp (including now)? Sex Assigned at Date Recorded Not on file documented as of this encounter Miscellaneous Notes Telephone Encounter - Verona Romero - 10/29/2021 4:29 PM EDT Jeff Duarte [id number] Diagnosis/Indication: anemia Please review patient chart to confirm if previous Endoscopy procedure was performed within system. If yes, take note of Anesthesia type used. If previous procedure found, and with MAC/propofol Anesthesia support was used, schedule this procedure with Anesthesia and skip the Anesthesia portion of qu estions. If not performed within system, not performed at all, or performed with IVCS, ask Anesthesia questions. SCHEDULING QUESTIONS (ask all patient these questions) 1. Have you ever had a/an Upper Endoscopy before? No If yes, did you have any problems with the procedure (such as waking up during the procedure, pain or difficulties afterwards, etc.)? No What type of sedation was used: General Anesthesia 2. Do you take any blood thinners or have you been diagnosed with a bleeding disorder that increasesyour risk of bleeding with procedures? No 3. Do you have a Pacemaker or Defibrillator device? If yes, send pool message to Cardiology with patient information and date or procedure. No 4. Are you a diabetic? If yes, call PCP/managing provider to discuss use of prep and any questions or concerns related to. Yes: Controlled by diet or medication? Medication 5. Do you take any iron supplements or vitamins that contain iron? No 6. Do you have a preference regarding the gender of your provider? Yes ANESTHESIA QUESTIONS (YES to any question, please book with Anesthesia support) 7. Have you ever been diagnosed with any of the following: Pulmonary Hypertension, Atrial Fibrillation (A-Fib) and/or Congential Heart Disease? Yes 8. Have you ever had an allergic or adverse reaction to Fentanyl or Versed? No 9. Have you had a problem with sedation or anesthesia? (Waking up during procedure, extreme confusion after, etc.) Yes longer wake up 10. Do you have a diagnosis of Obstructive Sleep Apnea? No 11. Do you use a c-pap machine? Neither 12. Do you use an oxygen tank at home? No 13. Do you use a rescue inhaler more than twice per day? (COPD, severe asthma) No 14. Do you experience breathing problems when you lay flat for a period of time? No 15. Do you take prescription narcotic pain medications, including suboxone or methodone? No SCHEDULING CONFIRMATIONS: Please note any and all parts of your conversation with the patient here. 16. We offer all new patients an opportunity to have an appointment with one of our associate care providers to learn more about your upcoming procedure, ask questions and get answers. These appointments are offered via telehealth. Would you be interested in scheduling this appointment? (Only ask if NEW referral patient; skip this question if [facility] provider ordered the procedure.) No 17. Is there any other information or concerns you would like to us to share with your care team in relation to your upcoming scheduled procedure? No 18. You must have a responsible republican who will drive you to your procedure, stay on campus for the entire duration of your procedure, and drive you home from your procedure. Who will likely be your transportation driver for the procedure? *Please Verify the height and weight, and adjust if height and/or weight have changed* Estimated body mass index is 19.12 kg/m?? as calculated from the following: Height as of 10/27/21: 162.6 cm (5' 4). Weight as of 10/27/21: 50.5 kg (111 lb 6.4 oz). Age:66 y.o. documented in this encounter Plan of Treatment Upcoming Encounters Date Type Specialty Care Team Description 11/07/2021 Office Visit Hematology and Oncology Eric Streeter MD [facility] ONCOLOGY [place], [place] [address] (Wo rk) 11/07/2021 Infusion Hematology and Oncology 11/07/2021 Office Visit Hematology and Oncology Irena Hinojosa RD [facility] [address] HEMATOLOGY AND O [place], [place] [address] (Wo rk) 11/21/2021 Office Visit Hematology and Oncology Eric Streeter MD [facility] [address] [place], [place] [address] (Wo rk) 11/21/2021 Infusion Hematology and Oncology 12/05/2021 Office Visit Hematology and Oncology Eric Streeter MD [facility] ONCOLOGY [place], [place] [address] (Wo rk) 12/05/2021 Infusion Hematology and Oncology 12/19/2021 Office Visit Hematology and Oncology Eric Streeter MD [facility] DR ONCOLOGY [place], [place] 0[address] (Wo rk) 12/19/2021 Infusion Hematology and Oncology documented as of this encounter Visit Diagnoses Not on filedocumented in this encounter Care Teams Clinical Research Administrator Relationship Specialty Start Date End Date William Wade PA PCP - General Family Medicine 08/31/[address] [place] [address] [place] [address] documented as of this encounter
--- OUTSIDE RECORDS SUMMARY | 2021-11-07 00:53 | XMS_ITS | Encounter Summary ---
:1955 Author Organization [facility] [place] [address] Care Team Providers Name Role Phone William Wade Primary Care Provider Encounter Details Date Type Department Care Team Description 10/29/2021 Orders Only Gastroenterology at [facility] Humberto Dumont Anemia due to [facility] Nelson [place] [address] [address] [facility] [phone] [place] [address] Social History Tobacco Use Types Packs/Day Years [...] MD [facility] [address] [place], [place] [address] (Wo rk) 11/07/2021 Infusion Hematology and Oncology 11/07/2021 Office Visit Hematology and Oncology Irena Hinojosa RD [facility] DRIVE HEMATOLOGY AND [place], [place] 0375 (Wo rk) 11/21/2021 Office Visit Hematology and Oncology Eric Streeter MD [facility] ONCOLOGY [place], [place] [address] (Wo rk) 11/21/2021 Infusion Hematology and Oncology 12/05/2021 Office Visit Hematology and Oncology Eric Streeter MD [facility] ONCOLOGY [place], [place] [address] (Wo rk) 12/05/2021 Infusion Hematology and Oncology 12/19/2021 Office Visit Hematology and Oncology Eric Streeter MD [facility] [address] [place], [place] [address] (Wo rk) 12/19/2021 Infusion Hematology and Oncology Scheduled Orders Name Type Priority Associated Diagnoses Order S chedule ENDOSCOPY CASE Procedures Routine Anemia due to chronic Orde red: 10/29/2021 REQUEST: EGD, UPPER GI blood loss ENDOSCOPY documented as of this encounter Visit Diagnoses Diagnosis Anemia due to chronic blood loss 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
--- OUTSIDE RECORDS SUMMARY | 2021-11-07 00:53 | XMS_ITS | Encounter Summary ---
:1955 Author Organization [facility] Address [facility] [address] [place] [address] Care Team Providers Name Role Phone William Wade Primary Care Provider Encounter Details Date Type Department Care Team Description 10/29/2021 Orders Only Hematology and Oncology at [facility] e, Eric Goyal MD [facility] [place] [address] [place] [address] [phone] (Wo rk) Social History Tobacco Use Types [...] place to sleep or slept in a fpc (including now)? Sex Assigned at Date Recorded Not on file documented as of this encounter Plan of Treatment Upcoming Encounters Date Type Specialty Care Team Description 11/07/2021 Office Visit Hematology and Oncology Eric Streeter MD [facility] ONCOLOGY [place], [place] [address] (Wo rk) 11/07/2021 Infusion Hematology and Oncology 11/07/2021 Office Visit Hematology and Oncology Irena Hinojosa RD [facility] DRIVE HEMATOLOGY [place], [place] [address] (Wo rk) 11/21/2021 Office Visit Hematology and Oncology Eric Streeter MD [facility] ONCOLOGY [place], [place] [address] (Wo rk) 11/21/2021 Infusion Hematology and Oncology 12/05/2021 Office Visit Hematology and Oncology Eric Streeter MD [facility] ONCOLOGY [place], [place] [address] (Wo rk) 12/05/2021 Infusion Hematology and Oncology 12/19/2021 Office Visit Hematology and Oncology Eric Streeter MD [facility] ONCOLOGY [place], [place] [address] (Wo rk) 12/19/2021 Infusion Hematology and Oncology documented as of this encounter Visit Diagnoses Not on filedocumented in this encounter Care Teams Horse Show Manager Relationship Specialty Start Date End Date Willaim Wade PA PCP - General Family Medicine 08/31/[address] [place] [address] [place] [address] documented as of this encounter
--- OUTSIDE RECORDS SUMMARY | 2021-11-07 00:53 | XMS_ITS | Encounter Summary ---
:1955 Author Organization [facility] [place] [address] Care Team Providers Name Role Phone William Wade Primary Care Provider Encounter Details Date Type Department Care Team Description 10/27/2021 Telephone Pulmonology at [facility] [place] Layne Myers [facility] [place] [address] Social History Tobacco Use Types Packs/Day [...] this encounter Miscellaneous Notes Telephone Encounter - Layne Myers - 10/27/2021 2:17 PM EDT sched pft 10/28 @7am pt aware dtl documented in this encounter Plan of Treatment Upcoming Encounters Date Type Specialty Care Team Description 11/07/2021 Office Visit Hematology and Oncology Eric Streeter MD [facility] [place], [place] [address] (Wo rk) 11/07/2021 Infusion Hematology and Oncology 11/07/2021 Office Visit Hematology and Oncology Irena Hinojosa RD [facility] [place] [address] (Wo rk) 11/21/2021 Office Visit Hematology and Oncology Eric Streeter MD [facility] [address] [place], [place] [address] (Wo rk) 11/21/2021 Infusion Hematology and Oncology 12/05/2021 Office Visit Hematology and Oncology Eric Streeter MD [facility] [address] [place], [place] [address] (Wo rk) 12/05/2021 Infusion Hematology and Oncology 12/19/2021 Office Visit Hematology and Oncology Eric Streeter MD [facility] [address] [place], [place] [address] (Wo rk) 12/19/2021 Infusion Hematology and Oncology documented as of this encounter Visit Diagnoses Not on filedocumented in this encounter Care Teams Systems Technician Relationship Specialty Start Date End Date William Wade PA PCP - General Family Medicine 08/31/[address] [place] [address] [place] [id number] documented as of this encounter
--- OUTSIDE RECORDS SUMMARY | 2021-11-07 00:53 | XMS_ITS | Encounter Summary ---
:1955 Author Organization [facility] Address [facility] [place] [address] Care Team Providers Name Role Phone William Wade Primary Care Provider Encounter Details Date Type Department Care Team Description 10/29/2021 Telephone Gastroenterology at [facility] Humberto Dumont MD [facility] [place] [address] [place] [address] [phone] (Wo rk) Social History Tobacco Use Types [...] this encounter Miscellaneous Notes Telephone Encounter - Humberto Dumont MD - 10/29/2021 3:57 PM EDT I was contacted by Dr Streeter regarding Mr Duarte with worsening anemia. Was recently transfused for anemia and responded well with HgB to 8.9. However a recheck showed HgB in the 7s. He did notice somedarks stools several days ago and had duodenal ulcers seen on his last upper endoscopy. I am facilitating an EGD for Jeff tomorrow. Dr Streeter may be able to arrange for a transfusion in the meantime,but when he speaks with him, may also discuss coming for admission depending upon his clinical wellbeing. documented in this encounter Plan of Treatment Upcoming Encounters Date Type Specialty Care Team Description 11/07/2021 Office Visit Hematology and Oncology Eric Streeter MD [facility] ONCOLOGY [place], [place] [address] (Wo rk) 11/07/2021 Infusion Hematology and Oncology 11/07/2021 Office Visit Hematology and Oncology Irena Hinojosa RD [facility] HEMATOLOGY AND O NCOLOGY [place], [place] [address] (Wo rk) 11/21/2021 Office Visit Hematology and Oncology Eric Streeter MD [facility] [place], [place] [address] (Wo rk) 11/21/2021 Infusion Hematology and Oncology 12/05/2021 Office Visit Hematology and Oncology Eric Streeter MD [facility] [place], [place] [address] (Wo rk) 12/05/2021 Infusion Hematology and Oncology 12/19/2021 Office Visit Hematology and Oncology Eric Streeter MD [facility] ONCOLOGY [place], [place] [address] (Wo rk) 12/19/2021 Infusion Hematology and Oncology documented as of this encounter Visit Diagnoses Not on filedocumented in this encounter Care Teams Plant Operations Coordinator Relationship Specialty Start Date End Date William Wade PA PCP - General Family Medicine 08/31/[address] [place] [address] [place] [id number] documented as of this encounter
--- OUTSIDE RECORDS SUMMARY | 2021-11-07 00:54 | XMS_ITS | Encounter Summary ---
:1955 Author Organization [facility] [place] [address] Care Team Providers Name Role Phone William Wade Primary Care Provider Encounter Details Date Type Department Care Team Description 10/21/2021 Hospital Encounter Hematology and Maligna nt neoplasm of Oncology at [facility] [place] [place] [address] Social History Tobacco Use Types Packs/Day [...] to sleep or slept in a senior living (including now)? Sex Assigned at Date Recorded Not on file documented as of this encounter Medications at Time of Discharge Medication Sig Dispensed Refills Start Date End Date metoprolol succinate XL Take by mouth 0 2 (Toprol-XL) 25 mg Tablet daily. Sustained Release 24 hr aspirin EC 81 mg Tablet, Take 81 mg by 0 Delayed Release (E.C.) mouth daily. atorvastatin (LIPITOR) 80 40 mg. 0 09/21/2018 mg Tablet metFORMIN (GLUCOPHAGE) 850 2 times daily. 0 09/21 mg Tablet nitroGLYcerin (NITROSTAT) Place under the 0 07/25 0.4 mg SL tablet tongue. tamsulosin (Flomax) 0.4 mg Take 0.4 mg by 0 11/03/2021 Capsule mouth daily. losartan (Cozaar) 25 mg Take 25 mg by 0 0 11/03/2021 Tablet mouth daily. documented as of this encounter Plan of Treatment Upcoming Encounters Date Type Specialty Care Team Description 11/07/2021 Office Visit Hematology and Oncology Eric Streeter MD [facility] ONCOLOGY [place], [place] [address] (Luz fofana) 11/07/2021 Infusion Hematology and Oncology 11/07/2021 Office Visit Hematology and Oncology Irena Hinojosa RD [facility] HEMATOLOGY AND O NCOLOGY [place], [place] 0[address] (Luz rk) 11/21/2021 Office Visit Hematology and Oncology Eric Streeter MD [facility] ONCOLOGY [place], [place] [address] (Luz fofana) 11/21/2021 Infusion Hematology and Oncology 12/05/2021 Office Visit Hematology and Oncology Eric Streeter MD [facility] ER DR ONCOLOGY [place], [place] 0[address] (Wo rk) 12/05/2021 Infusion Hematology and Oncology 12/19/2021 Office Visit Hematology and Oncology Eric Streeter MD [facility] ONCOLOGY [place], [place] 0[address] (Wo rk) 12/19/2021 Infusion Hematology and Oncology documented as of this encounter Procedures Procedure Name Priority Date/Time Associated Comments Diagnosis DPYD PCR Routine 10/21/2021 12:15 Malignant neoplasm Resul ts for this PM EDT of head of pancreas procedur e are in the results section. SCAN, PERIPHERAL BLOOD Routine 10/21/2021 12:15 R esults for this PM EDT procedure are i n the results section. HEMOGRAM Routine 10/21/2021 12:15 Malignant neoplasm Resul ts for this PM EDT of head of pancreas procedur e are in the results section. DIFFERENTIAL, Routine 10/21/2021 12:15 Malignant neoplasm Resu lts for this AUTOMATED PM EDT of head of pancreas procedur e are in the results section. IRON AND TIBC Routine 10/21/2021 12:15 Results fo r this PM EDT procedure are i n the results section. HC CARBOHYDRATE Routine 10/21/2021 12:15 Malignant neoplasm Re sults for this ANTIGEN 19-9 PM EDT of head of pancreas procedur e are in the results section. RETICULOCYTE COUNT Routine 10/21/2021 12:15 Resul ts for this PM EDT procedure are i n the results section. HC CBC,PLT & AUTO DIFF Routine 10/21/2021 12:15 Malignant neop lasm PM EDT of head of pancreas LACTATE DEHYDROGENASE Routine 10/21/2021 12:15 Re sults [...] procedure are i n the results section. COMPREHENSIVE Routine 10/21/2021 12:15 Malignant neoplasm Resu lts for this METABOLIC PANEL PM EDT of head of pancreas proce dure are in (NON-FASTING) the results section. documented in this encounter Results (ABNORMAL) Haptoglobin (10/21/2021 12:15 PM EDT) P athologist Signature Haptoglobin 227 (H) 30 - 200 [facility] mg[facility]dL [facility] Comment: Haptoglobin concentrations in newborns i [...] Streeter MD CHEMISTRY ORDERABLES Performing Organization Address City/[facility]/ZIP [place] [address] (ABNORMAL) Lactate Dehydrogenase (10/21/2021 12:15 PM EDT) P athologist Signature LDH 370 (H) 110 - [address] [facility] unit/L [facility] Specimen Anatomical Collection Method Collection Time Receive d Time (Source) Location / / Volume Laterality Blood Venous Draw / 10/21/2021 12:15 10/21/2021 Unknown PM EDT 12:26 PM EDT Resulting Agency Comment Spec In Lab Eric Streeter MD CHEMISTRY ORDERABLES Performing Organization Address City/[facility]/ZIP Code Phon e Number [address] Scan, Peripheral Blood (10/21/2021 12:15 PM EDT) Patholo gist Method Time Signature Plat Estimate Normal [facility] RBC Morphology Abnormal [facility] Macrocytes 6-10 /HPF [facility] Polychromasia Present >5/HPF [facility] Stippled RBCs Present >1/HPF [facility] Specimen Anatomical Collection Method Collection Time Receive d Time (Source) Location / / Volume Laterality Blood Venous Draw / 10/21/2021 12:15 10/21/2021 Unknown PM EDT 12:22 PM EDT Resulting Agency Comment Spec In Lab Eric Streeter MD HEMATOLOGY ORDERABLES Performing Organization Address City/[facility]/ZIP [facility] Phon e Number [address] (ABNORMAL) Reticulocyte Count (10/21/2021 12:15 PM EDT) Patholo gist Method Time Signature Retic Ct % 5.7 (H) 0.7 - 2.[address] [facility] % [facility] Retic Ct Abs 0.130 (H) 0.030 - [facility] 0.120 [facility] x10(6)/[facility] L LABORATORY Immature Retic% 30.3 (H) 0.0 - [facility] 15.6 % [facility] Reticulated Hgb 40.9 (H) 31.3 - [facility] 40.2 pg [facility] Specimen Anatomical Collection Method Collection Time Receive d Time (Source) Location / / Volume Laterality Blood Venous Draw / 10/21/2021 12:15 10/21/2021 Unknown PM EDT 12:22 PM EDT Resulting Agency Comment Spec In Lab Eric Streeter MD HEMATOLOGY ORDERABLES Performing Organization Address City/[facility]/ZIP Code Phon e Number [address] Folate, serum (10/21/2021 12:15 PM EDT) P athologist Signature Folate Lvl 14.6 4.8 - 24.2 [facility] ng/mL [facility] Specimen Anatomical Collection Method Collection Time Receive d Time (Source) Location / / Volume Laterality Blood Venous Draw / 10/21/2021 12:15 10/21/2021 Unknown PM EDT 12:26 PM EDT Resulting Agency Comment Spec In Lab Eric Streeter MD CHEMISTRY ORDERABLES Performing Organization Address City/[facility]/ZIP [place] [address] Vitamin B12 (10/21/2021 12:15 PM EDT) athologist Signature Vitamin B-12 984 232 - 1,245 [facility] pg/mL [facility] Specimen Anatomical Collection Method Collection Time Receive d Time (Source) Location / / Volume Laterality Blood Venous Draw / 10/21/2021 12:15 10/21/2021 Unknown PM EDT 12:26 PM EDT Resulting Agency Comment Spec In Lab Eric Streeter MD CHEMISTRY ORDERABLES Performing Organization Address City/[facility]/ZIP Code Phon e Number [address] (ABNORMAL) Ferritin (10/21/2021 12:15 PM EDT) athologist Signature Ferritin 698 (H) 30 - 400 [facility] ng/mL [facility] Comment: Pediatric reference ranges not verified at [facility], interpret with caution. Reference ranges for females greater wilson n 50 years of age approach values for men, i.e., 30-400 ng/mL. Specimen Anatomical Collection Method Collection Time Receive d Time (Source) Location / / Volume Laterality Blood Venous Draw / 10/21/2021 12:15 10/21/2021 Unknown PM EDT 12:26 PM EDT Resulting Agency Comment Spec In Lab Eric Streeter MD CHEMISTRY ORDERABLES Performing Organization Address City/[facility]/ZIP [place] [address] (ABNORMAL) Iron and TIBC (10/21/2021 12:15 PM EDT) Analysis Performed At Patho logist Time Signature Iron 63 45 - 160 [facility] mcg/dL [facility] TIBC 167 (L) 250 - 450 [facility] mcg/dL [facility] Iron Saturation 38 20 - 50 % [facility] Specimen Anatomical Collection Method Collection Time Receive d Time (Source) Location / / Volume Laterality Blood Venous Draw / 10/21/2021 12:15 10/21/2021 Unknown PM EDT 12:26 PM EDT Resulting Agency Comment Spec In Lab Eric Streeter MD CHEMISTRY ORDERABLES Performing Organization Address City/State/[place] [address] (ABNORMAL) Differential, Automated (10/21/2021 12:15 PM EDT) [facility] Method Time Signature Neutrophils % 64.1 % [facility] Neutr Abs (ANC) 6.42 (H) 1.70 - [facility] 6.10 [facility] x10(3)/[facility] LABORATORY Lymphocytes % 29.2 % [facility] Lymphocytes Abs 2.9 0.9 - 3.[address] [facility] x10(3)/[facility] LABORATORY Monocytes % 5.1 % [facility] Monocyte Abs 0.5 0.3 - 0.[address] [facility] x10(3)/[facility] LABORATORY Eosinophils % 0.8 % [facility] Eosinophils Abs 0.1 0.0 - 0.[address] [facility] x10(3)/[facility] LABORATORY Basophils % 0.3 % [facility] Basophils Abs 0.0 0.0 - 0.[address] [facility] x10(3)/[facility] LABORATORY Immature Gran % 0.50 % [facility] Comment: Immature granulocytes(IG's)percentage an d absolute count will include metamyelocytes, myelocytes, and promyelo cytes. Blood smears from CBCs yielding IG's will be scanned manually for concor dance. If this scan disagrees with the automated IG or if promyelocytes are not ed, a manual differential will be performed. Neda Gran Abs 0.05 (H) 0.00 - 0.04 x10(3)/[facility] LABORATORY Specimen Anatomical Collection Method Collection Time Receive d Time (Source) Location / / Volume Laterality Blood 10/21/2021 12:15 10/21/2021 PM EDT 12:22 PM EDT Resulting Agency Comment Spec In Lab Eric Streeter MD HEMATOLOGY ORDERABLES Performing Organization Address City/State/[place] [address] (ABNORMAL) Hemogram (10/21/2021 12:15 PM EDT) [facility] Method Time Signature WBC 10.0 (H) 4.0 - 9.5 [facility] x[facility](3[facility] LABORATORY RBC 2.33 (L) 4.58 - [facility] 5.54 [facility] x10(6)/[facility] LABORATORY Hemoglobin 8.9 (L) 13.7 - [facility] 16.5 g/dL [facility] Hematocrit 27.1 (L) 40.5 - [facility] 48.5 % [facility] MCV 116.3 (H) 82.9 - [facility] 93.[address] [facility] LABORATORY MCH 38.2 (H) 27.5 - [facility] 32.1 pg [facility] MCHC 32.8 32.0 - [facility] 35.7 g/dL [facility] Platelets 249 145 - [address] [facility] x10(3)/[facility] LABORATORY RDWSD 71.4 (H) 36.0 - [facility] 45.[address] [facility] LABORATORY RDWCV 16.7 (H) 11.4 - [facility] 13.8 % [facility] MPV 10.6 7.6 - 12.9 [facility] LABORATORY nRBC % Auto 0.0 % [facility] nRBC Abs Auto 0.000 0.000 - [facility] 0.000 [facility] x10(3)/[facility] LABORATORY Specimen Anatomical Collection Method Collection Time Receive d Time (Source) Location / / Volume Laterality Blood 10/21/2021 12:15 10/21/2021 PM EDT 12:22 PM EDT Resulting Agency Comment Spec In Lab Eric Streeter MD HEMATOLOGY ORDERABLES Performing Organization Address City/State/[place] [address] [facility] [address] DPYD PCR (10/21/2021 12:15 PM EDT) Component Value Ref Test Analysis Performed At [facility] Range Method Time Signature DPYD PCR INDICATION FOR STUDY: DPYD Genotyping [facility] RESULTS: Normal metabolizer, *1/*1 genotype [facility] INTERPRETATION: ??Normal gen otype, with normal expected [...] probes for each varian t: DPYD*2A ??(c.1905+1G>A, [id number]), DPYD*13 (c.1679T>G , [id number]), and DP YD c.2846A>T ([id number]). All variant positions are provided on the [...] Genomics and [employer] Technology (CGAT) at the [facility]. It has not been cleared or approved by the U .S. Food and Drug Administration. The laboratory is regulated under CLIA as qual ified to perform high-complexity testing. This test is used for clinical purposes. It should not be regarded as investigational or for research. REFERENCES: 1. CPIC?? Guideline for Fluoropyrimidines and DPYD. https:// cpicpgx.org/ 2. Stalin magaña al., Clinical Pharmacogenetics Imp lementation Consortium (CPIC) Guideline for Dihydropyrimidine Dehydrogenase Genotype and Fluoropyrimidine Dosin Update. Clin Pharmacol Ther. 2018 Apr;103(2):21 0-216. PMID: [id number] 3. Alesia Shabazz, Mel Thrasher et al. Fluorouracil Ther apy and DPYD Genotype. In: Medical Genetics Summaries [Internet]. B jose TRAN): [facility] (); 2011? 2015Jan 22. PMID: [id number] Specimen Anatomical Collection Method Collection Time Receive d Time (Source) Location / / Volume Laterality Blood 10/21/2021 12:15 10/21/2021 1:57 PM EDT PM EDT Resulting Agency Comment Spec In Lab Eric Streeter MD CHEMISTRY ORDERABLES Performing Organization Address City/[facility]/ZIP [facility] [place] [address] (ABNORMAL) Carbohydrate Antigen 19-9 (10/21/2021 12:15 PM EDT) athologist Signature CA 19-9 >98878.0 <=35.[address] [facility] (H) u/ml [facility] Comment: This result was generated using a Fili Farhan immunoassay. ??Results obtained from other methods or manufacturers hermelinad ot be used interchangeably with this method. Specimen Anatomical Collection Method Collection Time Receive d Time (Source) Location / / Volume Laterality Blood 10/21/2021 12:15 10/21/2021 PM EDT 12:22 PM EDT Resulting Agency Comment Spec In Lab Eric Streeter MD CHEMISTRY ORDERABLES Performing Organization Address City/[facility]/ZIP [place] [address] (ABNORMAL) Comprehensive metabolic panel (non-fasting) (10/21/2021 12:15 PM EDT) P athologist Signature Glucose Lvl 164 65 - 199 [facility] mg/dL [facility] Comment: Diabetes: >=200 mg/dL plus symp toms BUN 13 10 - 20 mg/dL [facility] Creatinine 0.69 (L) 0.80 - 1.50 mg/dL [facility] Sodium 138 135 - 145 mmol/L [facility] Potassium 4.1 3.5 - 5.0 mmol/L [facility] Comment: Please note: ??Patients with WBC >100,00 0 may have falsely elevated Potassium levels. ??For accurate Potassium quantif ication in these patients send serum separator tube (gold top) for subsequent determinations. ??Contact the Clinical Chemistry Laboratory if there are any qu estions. Chloride 103 98 - 107 mmol/L [facility] CO2 26 22 - 31 mmol/L [facility] Anion Gap 9 5 - 15 mmol/L [facility] Calcium 8.4 (L) 8.5 - 10.5 mg/dL [facility] Total Protein 6.5 6.1 - 8.0 g/dL [facility] Albumin 3.0 (L) 3.2 - 5.2 g/dL [facility] AST 72 (H) 0 - 39 unit/L [facility] ALT 70 (H) 0 - 55 unit/L [facility] Alk Phos 672 (H) 40 - 130 unit/L [facility] Total Bilirubin 3.5 (H) 0.2 - 1.3 mg/dL [facility] Estimated GFR 101 >=60 mL/min/1.73 m?? [facility] Comment: This patient's estimated GFR [...] Organization Address City/State/[place] [address] documented in this encounter Visit Diagnoses Diagnosis Malignant neoplasm of head of pancreas Malignant neoplasm of head of pancreas documented in this encounter Care Teams Penology Professor Relationship Specialty Start Date End Date William Wade PA PCP - General Family Medicine 08/31/[address] [place] [address] [place] [address] documented as of this encounter
--- OUTSIDE RECORDS SUMMARY | 2021-11-07 00:54 | XMS_ITS | Encounter Summary ---
:1955 Author Organization [facility] [place] [address] Care Team Providers Name Role Phone William Wade Primary Care Provider Encounter Details Date Type Department Care Team Description 10/21/2021 Orders Only Hematology and Oncology Eric Streeter , [place] [address] [address] [phone] ONCOLOGY [place], [place] [address] (Wo rk) Social History Tobacco [...] place to sleep or slept in a m[facility] (including now)? Sex Assigned at Date Recorded Not on file documented as of this encounter Plan of Treatment Upcoming Encounters Date Type Specialty Care Team Description 11/07/2021 Office Visit Hematology and Oncology Eric Streeter MD [facility] ONCOLOGY [place], [place] 0[address] (Wo rk) 11/07/2021 Infusion Hematology and Oncology 11/07/2021 Office Visit Hematology and Oncology Irena Hinojosa RD [facility] DRIVE HEMATOLOGY [place], [place] 0[address] (Wo rk) 11/21/2021 Office Visit Hematology and Oncology Eric Streeter MD [facility] ONCOLOGY [place], [place] [address] (Wo rk) 11/21/2021 Infusion Hematology and Oncology 12/05/2021 Office Visit Hematology and Oncology Eric Streeter MD [facility] ONCOLOGY [place], [place] [address] (Wo rk) 12/05/2021 Infusion Hematology and Oncology 12/19/2021 Office Visit Hematology and Oncology Eric Streeter MD [facility] ONCOLOGY [place], [place] 0375 (Wo rk) 12/19/2021 Infusion Hematology and Oncology documented as of this encounter Results Direct antiglobulin test (10/21/2021 2:14 PM EDT) P athologist Signature JUVENAL Negative [facility] Specimen Anatomical Collection Method Collection Time Receive d Time (Source) Location / / Volume Laterality Blood 10/21/2021 2:14 PM 2:19 EDT PM EDT Resulting Agency Comment Spec In Lab Eric Streeter MD BLOOD BANK ORDERABLES Performing Organization Address City/State/[place] [address] documented in this encounter Visit Diagnoses Diagnosis Macrocytic anemia Unspecified deficiency anemia Malignant neoplasm of head of pancreas documented in this encounter Care Teams Recovery Agent Relationship Specialty Start Date End Date William Wade PA PCP - General Family Medicine 08/31/[address] [place] [address] [place] [address] documented as of this encounter
--- OUTSIDE RECORDS SUMMARY | 2021-11-07 00:54 | XMS_ITS | Encounter Summary ---
:1955 Author Organization [facility] [place] [address] Care Team Providers Name Role Phone William Wade Primary Care Provider Encounter Details Date Type Department Care Team Description 10/21/2021 Hospital Encounter Hematology and Oncology at Macrocytic anemia [facility] [place] [address] Social History Tobacco Use Types Packs/Day [...] place to sleep or slept in a long term (including now)? Sex Assigned at Date Recorded [...] Visit Hematology and Oncology Eric Streeter MD [facility] ONCOLOGY [place], [place] [address] (Luz rk) 11/07/2021 Infusion Hematology and Oncology 11/07/2021 Office Visit Hematology and Oncology Irena Hinojosa RD [facility] HEMATOLOGY AND O NCOLOGY [place], [place] [address] (Wo rk) 11/21/2021 Office Visit Hematology and Oncology Eric Streeter MD [facility] ONCOLOGY [place], [place] 0375 (uLz rk) 11/21/2021 Infusion Hematology and Oncology 12/05/2021 Office Visit Hematology and Oncology Eric Streeter MD [facility] ER DR ONCOLOGY [place], [place] 0[address] (Wo rk) 12/05/2021 Infusion Hematology and Oncology 12/19/2021 Office Visit Hematology and Oncology Eric Streeter MD [facility] DR ONCOLOGY [place], [place] 0375 (Wo rk) 12/19/2021 Infusion Hematology and Oncology documented as of this encounter Procedures Procedure Name Priority Date/Time Associated Diagnosis Comme nts HC DIRECT Routine 10/21/2021 2:14 PM Macrocytic anemia Resu lts for this ANTI-GLOBULIN TEST, EDT procedur e are in [facility] the results section. documented in this encounter Results Direct antiglobulin test (10/21/2021 2:14 PM EDT) P athologist Signature JUVENAL Negative [facility] Specimen Anatomical Collection Method Collection Time Receive d Time (Source) Location / / Volume Laterality Blood 10/21/2021 2:14 PM 2:19 EDT PM EDT Resulting Agency Comment Spec In Lab Eric Streeter MD BLOOD BANK ORDERABLES Performing Organization Address City/State/[place] [address] documented in this encounter Visit Diagnoses Diagnosis Macrocytic anemia Unspecified deficiency anemia Malignant neoplasm of head of pancreas documented in this encounter Care Teams Price Lister Relationship Specialty Start Date End Date William Wade PA PCP - General Family Medicine 08/31/[address] [place] [address] [place], [place] [address] documented as of this encounter
--- OUTSIDE RECORDS SUMMARY | 2021-11-07 00:54 | XMS_ITS | Encounter Summary ---
:1955 Author Organization [facility] [place] [address] Care Team Providers Name Role Phone William Wade Primary Care Provider Reason for Visit Reason Onset Date Comments Medical Care Coordination 10/21/2021 Encounter Details Date Type Department Care Team Description 10/21/2021 Telephone Hematology Oncology at Fahad Giron RN Medical Care [facility] Coordination [address] [place] [id number] Social History Tobacco Use Types Packs/Day Years [...] Telephone Encounter - Fahad Giron RN - 10/21/2021 4:06 PM EDNikki: Care Coordination Met with the patient after his consultation with Dr. Streeter today. Patient confirmed that he is now approved for Social Security custodial benefits. Patient will transition his care to [facility]. Patient made aware of his appointment with Dr. Streeter on 10/31 at [facility]. Provided my phone number??if any further q uestions or concerns come up and for any help coordinating his care. Patient was provided a $50.00 gas card. Patient reminded to contact the [facility] [place] on Aging for various other resources like transportation, nutrition, fuel etc. Patient provided a print-out about the kiana and its contact information. Patient also provided the [facility] Food Access Network Directory.The Food AccessNetwork entails: 1. [employer] : can help you put healthy foods on your table every day! Wondering if you are eligible or want help applying? [place] [address] or call the [place] [employer] at [phone]. 2. Meals on Wheels Program: You may be eligible to receive home-delivered meals through the Meals onWheels program. Call [facility] [place] [employer] [facility] at [phone] to register. 3. Senior Meals : Senior Meals sites are open to all. While here is no charge for anyone age 60+, there is a suggested donation which varies by meal site. Guests under age 60 are charged a guest fee. 4. Commodity Supplemental Food Program : If you???re 60 or older, you can save money on groceries and still eat the foods you love. The Commodity Supplemental Food Program provides a free box of food each month, which you can pick remover at a designated location.Enroll by calling or go to [employer]/ share-food/csfp. documented in this encounter Plan of Treatment Upcoming Encounters Date Type Specialty Care Team Description 11/07/2021 Office Visit Hematology and Oncology Eric Streeter MD [facility] [place], [place] [address] (Wo rk) 11/07/2021 Infusion Hematology and Oncology 11/07/2021 Office Visit Hematology and Oncology Irena Hinojosa RD [facility] DRIVE HEMATOLOGY AND O NCOLOGY [place], [place] [address] (Wo rk) 11/21/2021 Office Visit Hematology and Oncology Eric Streeter MD [facility] [place], [place] [address] (Wo rk) 11/21/2021 Infusion Hematology and Oncology 12/05/2021 Office Visit Hematology and Oncology Eric Streeter MD [facility] [place], [place] [address] (Wo rk) 12/05/2021 Infusion Hematology and Oncology 12/19/2021 Office Visit Hematology and Oncology Eric Streeter MD [facility] [place], [place] [address] (Wo rk) 12/19/2021 Infusion Hematology and Oncology documented as of this encounter Visit Diagnoses Not on filedocumented in this encounter Care Teams Customer Support Manager Relationship Specialty Start Date End Date William Wade PA PCP - General Family Medicine 08/31/[address] [place] [address] [place] [id number] documented as of this encounter
--- OUTSIDE RECORDS SUMMARY | 2021-11-07 00:54 | XMS_ITS | Encounter Summary ---
:1955 Author Organization [facility] [address] Care Team Providers Name Role Phone William Wade Primary Care Provider Reason for Referral Consultation (Routine) - Closed Specialty Diagnoses / Procedures Referred By Contact Refer red To Contact Hematology and Oncology Diagnoses Malignant neoplasm of head of pancreas Eric Orantes, [facility] [address] [facility] [address] [place] [address] [place] [address] Referral ID Status Reason Start Date Expiration Date Visits V isits Requested Authorized [id number] Closed Consult, 10/21/2021 10/21/2022 1 1 Test & Treat Reason for Visit Reason Comments Advice Only Consultation (Routine) - Closed Specialty Diagnoses / Procedures Referred By Contact Refer red To Contact Hematology and Oncology Diagnoses Jaundice Humberto Dumont MD [facility] [address] [facility] [place] [address] [place] [address] Phone: Fax: Referral ID Status Reason Start Date Expiration Date Visits V isits Requested Authorized [id number] Closed Consult, 10/07/2021 10/07/2022 1 1 Test & Treat Encounter Details Date Type Department Care Team Description 10/21/2021 Office Visit Hematology and Eric Orantes Fransico nt neoplasm of head of pancreas; Oncology at [facility] Macrocytic anemia [address] [facility] [address] [facility] [address] [place], [place] [address] [place] [address] [phone] Social History Tobacco Use Types Packs/Day Years [...] Sign Reading Time Taken Comments Blood Pressure 127/54 10/21/2021 9:51 AM EDT Pulse 77 10/21/2021 9:51 AM EDT Temperature 36.2 ??C (97.2 ??F) 10/21/2021 9:51 AM EDT Respiratory Rate 16 10/21/2021 9:51 AM EDT Oxygen Saturation 99% 10/21/2021 9:51 AM EDT Inhaled Oxygen Concentration - - Weight 53.8 kg (118 lb 9.6 oz) 10/21/2021 9:51 AM EDT Height 165.4 cm (5' 5.12) 10/21/2021 9:51 AM EDT Body Mass Index 19.66 10/21/2021 9:51 AM EDT documented in this encounter Progress Notes Eric Orantes MD - 10/21/2021 11:00 AM EDT Subjective Patient ID: Jeff Duarte is a 66 y.o. male. Problem List: 1. Pancreatic cancer, T2, N0, M0 A. Presented with abdominal pain CT a/p 06/07/21 - Impression: 1. Mild diffuse bladder wall thickening which can be seen with cystitis 2. Mildly dilated pancreatic duct with 2 focal hypoechoic subcentimeter lesions within the pancreatic tail. Findings could reflect intraductal papillary mucinous neoplasms. Recommend evaluation with MRI abdomen/MRCP 3. 3.6 cm abdominal aortic aneurysm, slightly increased in size since prir 2018. Follow up imaging in 2 years is recommended. Upper EUS 06/19/21 - Impression: ? - LA Grade B reflux esophagitis with no bleeding, likely reflux??related. ? - Two benign appearing 5-6 mm cystic lesions were seen in the pancreatic body and pancreatic tail associated with mild diffuse ?pancreatic ductal dilation and parenchymal changes that may reflect mild chronic pancreatitis vs age related change. The small ?cysts may represent branch duct intraductal papillary mucinous neoplasms but have low risk features. ? - Inflamed, possible prolapsing duodenal fold. B. Presented with difficult to control DM, weight loss and jaundice. CT abd 09/30/21 - IMPRESSION 1. New intra and extrahepatic biliary dilation and increasing main pancreatic duct dilation in the setting of a new mass or inflammatory process in the pancreatic duodenal groove. The differential includes obstruction secondary to malignancy (such as pancreatic ductal adenocarcinoma, ampullary or duodenal malignancy and leiomyosarcoma), and inflammatory processes such as paraduodenal pancreatitis (groove pancreatitis). 2. Reason for infrarenal aortic aneurysm similar appearance to 06/07/2021 CT. C. Upper EUS 10/07/21 - Impression: ? - LA Grade B esophagitis. ? - Normal stomach. ? - Non-bleeding duodenal ulcer with no stigmata of bleeding. ? - A mass was identified in the pancreatic head. Fine needle biopsy performed. ? - There was dilation in the common bile duct which measured up to 13 mm. Cytology: Pancreas, head (EUS-guided FNA): Adenocarcinoma. ERCP 10/07/21 - Impression: ? - Severe distal common bile duct stricture ? - A biliary sphincterotomy was performed. ? - Technically difficult to traverse stricture, ultimately stented with a 6 mm x 6 cm undercover metal Zilver stent after dilation with a biliary dilator to [address] Stevens's note: The tumor appears to abut the lateral aspect over the portal vein but it is definitely less 180 degrees with no arterial involvement. Dr. Dumont presented this case to the GI tumor board this morning and we reviewed all this as well as his biopsy. Personal communication from Dr. Stevens, considered resectable. E. Diagnostic lap 10/17/21 - Findings: No evidence for metastatic disease. He did have some what looklike bile tinged ascites mostly in the right upper quadrant which we aspirated and sent for cytology. The liver looked healthy appearing with no surface nodules. F. 10/21/21 - CT chest - IMPRESSION ?? 1. Bilateral sub-6 mm solid nodules. These are indeterminant; while small nodules noted this sizeare statistically of a post infectious or inflammatory process, in the setting of a primary malignancy, metastatic disease cannot be excluded. If there are CT examinations available prior to 06/07/2021,comparison could be made to evaluate for stability. 2. No lymphadenopathy. 3. New partially visualized perihepatic ascites. 2. ASCVD S/p SC around 2009 S/p PCI with stent placement 3. DM 4. HTN 5. Hyperlipidemia 6. AAA 7. GERD 8. Left carotid artery stenosis HPI Jeff Duarte is seen for evaluation and management of pancreatic cancer. The history is summarized above. He is by himself in clinic. He feels the jaundice is improving. The urine is under trimmer in color and the stool color is back to normal. His appetite is low. He has lost 17-18# overall. He has actually gained some weight back. The DM has been difficult to control. He is taking metformin and is taking insulin, 10 units in the evening. His BSs in the morning have fluctuated widely, for 50- 200+. He thinks this is dependent on what he eats and when. He is going to try to be more consistent about his eating.His bowels are normal, no diarrhea. No gassiness or bloating. He does not take pancreatic enzymes. He has some pain related to the laparoscopy procedure. It has improved but the left side of the abdomen still bothers him. No fevers or chills. He has some numbness of his toes of both feet. He lives alone and is managing well. He has family in [place], about 8 miles away. His energy level is low. Soc Hx: Lives alone in [place], [place] Tob - Current, 1/2 to 3 ppd. 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 Constitutional: General: He is not in acute distress. HENT: Head: Normocephalic and atraumatic. Mouth/Throat: Pharynx: Oropharynx is clear. No oropharyngeal exudate. Eyes: General: Scleral icterus present. Chest: Breasts: Right: No supraclavicular adenopathy. Left: No supraclavicular adenopathy. Lymphadenopathy: Cervical: No cervical adenopathy. Upper Body: Right upper body: No supraclavicular adenopathy. Left upper body: No supraclavicular adenopathy. Neurological: Mental Status: He is alert. Assessment and Plan Jeff Duarte is 66 yo, seen for evaluation and management of pancreatic cancer. He initially underwent an Upper EUS in 05/2021 after he presented with abdominal pain and had a CT done which showed 2 cystic pancreatic lesions. 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 He then presented in 09/2021 with weight loss, difficult to control DM and jaundice. A CT was repeated and showed biliary and pancreatic ductal dilation and a new mass vs inflammatory process in the pancreatic/duodenal groove. A repeat Upper EUS was done on 10/07/21. A pancreatic head mass was seen and b iopsied. The cytology from this showed adenocarcinoma. He saw Dr. Stevens and on a diagnostic laparoscopy was performed. There was no evidence of metastatic disease. Per Dr. Stevens, the primary is considered resectable. A chest CT is being done later today. I will f/u on this and call him afterward. Assuming no evidence of metastatic disease, options include neoadjuvant chemotherapy off study vs treatment on protocol [id number] - A phase??III trial of perioperative vs adjuvant chemotherapy for resectable pancreatic cancer. ?? On the clinical trial, Arm 1 consists of pre-operative chemotherapy with mFolfirinox x 8 (restaging after 4 cycles and 8 cycles) followed by surgery followed by 4 more cycles of mFolfirinox; ?Arm 2 consists of upfront resection followed by 12 cycles of adjuvant mFolfirinox. Therefore, the total du ration of chemotherapy is the same in both arms. ?? We discussed that our approach??off study??has been one of neoadjuvant therapy for all patients withlocalized pancreatic cancer, including those with apparently resectable disease but that this approach has not been compared in randomized fashion to upfront resection followed by adjuvant post-operative chemotherapy and therefore it is not clear if one approach is superior to the other. ??I think theclinical trial is an important study to answer this question and offers very reasonable therapy in both arms. He feels that he is interested in chemotherapy first an dnot in the clinical trial. ? In terms of specific chemotherapy, options include Folfirinox and Gemcitabine??plus nab-Paclitaxel. Our preference in general for patients with good PS is for Folfirinox. ??We reviewed the schedule??ofmFolfirinox??- ??Irinotecan and oxaliplatin are given day1 followed by a 46-48 hour infusion of Fluorouracil with cycles repeated every 2 weeks assuming tolerance. He would like to proceed with treatment with Folfirinox.? Potential side effects??of chemotherapy??imclude alopecia, nausea and vomiting, stomatitis, diarrhea, dehydration, myelosuppression with associated risks of bleeding, infection and dose delays, fatigue, peripheral neuropathy which may be cumulative and permanent even in the??absence??of cold,??angina/M I,??hypersensitivity reactions and others. ?He was given informational handouts regarding these medications. Labs will be drawn today for LFTs and other baseline labs and for DPYD analysis??to be sure that there is no evidence of a variant that would put him at risk of increased 5FU related toxicity.? A referral will made to the Familial Cancer Program for discussion of genetic testing. Addendum: Recent Results (from the past 24 hour(s)) Comprehensive metabolic panel (non-fasting) Result Value Ref Range Glucose Lvl 164 65 - 199 mg/dL BUN 13 10 - 20 mg/dL Creatinine 0.69 (L) 0.80 - 1.50 mg/dL Sodium 138 135 - 145 mmol/L Potassium 4.1 3.5 - 5.0 mmol/L Chloride 103 98 - 107 mmol/L CO2 26 22 - 31 mmol/L Anion Gap 9 5 - 15 mmol/L Calcium 8.4 (L) 8.5 - 10.5 mg/dL Total Protein 6.5 6.1 - 8.0 g/dL Albumin 3.0 (L) 3.2 - 5.2 g/dL AST 72 (H) 0 - 39 unit/L ALT 70 (H) 0 - 55 unit/L Alk Phos 672 (H) 40 - 130 unit/L Total Bilirubin 3.5 (H) 0.2 - 1.3 mg/dL Estimated GFR 101 >=60 mL/min/1.73 m?? Carbohydrate Antigen 19-9 Result Value Ref Range CA 19-9 >10,000.0 (H) <=35.0 u/ml Hemogram Result Value Ref Range WBC 10.0 (H) 4.0 - 9.5 x10(3)/mcL RBC 2.33 (L) 4.58 - 5.54 x10(6)/mcL Hemoglobin 8.9 (L) 13.7 - 16.5 g/dL Hematocrit 27.1 (L) 40.5 - 48.5 % MCV 116.3 (H) 82.9 - 93.1 fL MCH 38.2 (H) 27.5 - 32.1 pg MCHC 32.8 32.0 - 35.7 g/dL Platelets 249 145 - 357 x10(3)/mcL RDWSD 71.4 (H) 36.0 - 45.0 fL RDWCV 16.7 (H) 11.4 - 13.8 % MPV 10.6 7.6 - 12.9 fL nRBC % Auto 0.0 % nRBC Abs Auto 0.000 0.000 - 0.000 x10(3)/mcL Differential, Automated Result Value Ref Range Neutrophils % 64.1 % Neutr Abs (ANC) 6.42 (H) 1.70 - 6.10 x10(3)/mcL Lymphocytes % 29.2 % Lymphocytes Abs 2.9 0.9 - 3.2 x10(3)/mcL Monocytes % 5.1 % Monocyte Abs 0.5 0.3 - 0.9 x10(3)/mcL Eosinophils % 0.8 % Eosinophils Abs 0.1 0.0 - 0.4 x10(3)/mcL Basophils % 0.3 % Basophils Abs 0.0 0.0 - 0.1 x10(3)/mcL Immature Gran % 0.50 % Neda Gran Abs 0.05 (H) 0.00 - 0.04 x10(3)/mcL Iron and TIBC Result Value Ref Range Iron 63 45 - 160 mcg/dL TIBC 167 (L) 250 - 450 mcg/dL Iron Saturation 38 20 - 50 % Ferritin Result Value Ref Range Ferritin 698 (H) 30 - 400 ng/mL Vitamin B12 Result Value Ref Range Vitamin B-12 984 232 - 1,245 pg/mL Folate, serum Result Value Ref Range Folate Lvl 14.6 4.8 - 24.2 ng/mL Reticulocyte Count Result Value Ref Range Retic Ct % 5.7 (H) 0.7 - 2.6 % Retic Ct Abs 0.130 (H) 0.030 - 0.120 x10(6)/mcL Immature Retic% 30.3 (H) 0.0 - 15.6 % Reticulated Hgb 40.9 (H) 31.3 - 40.2 pg Scan, Peripheral Blood Result Value Ref Range Plat Estimate Normal RBC Morphology Abnormal Macrocytes 6-10 /HPF Polychromasia Present >5/HPF Stippled RBCs Present >1/HPF Lactate Dehydrogenase Result Value Ref Range LDH 370 (H) 110 - 220 unit/L Haptoglobin Result Value Ref Range Haptoglobin 227 (H) 30 - 200 mg/dL Direct antiglobulin test Result Value Ref Range JUVENAL Negative CT chest - IMPRESSION ?? 1. Bilateral sub-6 mm solid nodules. These are indeterminant; while small nodules noted this sizeare statistically of a post infectious or inflammatory process, in the setting of a primary malignancy, metastatic disease cannot be excluded. If there are CT examinations available prior to 06/07/2021,comparison could be made to evaluate for stability. 2. No lymphadenopathy. 3. New partially visualized perihepatic ascites. Cytology from diagnostic lap - Ascites: Rare atypical cells with immunoreactivity for monoclonal CEA are noted, cannot exclude malignancy/metastatic adenocarcinoma. Mesothelial cells, and mixed leukocytes are also seen. He has a macrocytic anemia. He has been seen by Dr. Cook in Hematology at [facility] for this in the past. Evaluation included a a BMbx which showed showed a hypocellular BM and no evidence of dysplasia.The macrocycytosis is more marked and he is more anemic than he has been in the past although improved compared with 10/14/21. The increased macrocytosis may in part be related to the elevated reticulocyte count. He does not appear to be hemolyzing. Clinically not bleeding. Will discuss with Dr. Cook. The lung nodules are worrisome. The LLL nodule can be seen on the lower lung images on the CT done in 05/2021. The others appear to be above the level seen on that film. Given the small size, not sure these are further evaluable. Will review with thoracic surgery. The cytology from the ascitic fluid is also worrisome although not definitive. I will call him to discuss after I have reviewed with colleagues. Addendum: Pt has not had any prior chest CTs that he is aware of. I reviewed the chest CT with Thoracic Surgery. A couple of the lung nodules are felt to be amenable to biopsy. Dr. Luther will arrange to see him next and will plan a wedge resection at the end of next week. documented in this encounter Miscellaneous Notes Addendum Note - Eric Orantes MD - 10/21/2021 11:00 AM EDT Addended by: ERIC ORANTES on: 10/21/2021 12:09 PM Modules accepted: Orders Addendum Note - Eric Orantes MD - 10/21/2021 11:00 AM EDT Addended by: ERIC ORANTES on: 10/21/2021 01:51 PM Modules accepted: Orders documented in this encounter Plan of Treatment Upcoming Encounters Date Type Specialty Care Team Description 11/07/2021 Office Visit Hematology and Oncology Eric Orantes MD [facility] ONCOLOGY [place], [place] [address] (Wo rk) 11/07/2021 Infusion Hematology and Oncology 11/07/2021 Office Visit Hematology and Oncology Irena Hinojosa RD [facility] [place] [address] (Wo rk) 11/21/2021 Office Visit Hematology and Oncology Eric Orantes MD [facility] ONCOLOGY [place], [place] [address] (Wo rk) 11/21/2021 Infusion Hematology and Oncology 12/05/2021 Office Visit Hematology and Oncology Eric Orantes MD [facility] ONCOLOGY [place], [place] [address] (Wo rk) 12/05/2021 Infusion Hematology and Oncology 12/19/2021 Office Visit Hematology and Oncology Eric Orantes MD [facility] DR [place]OG[place] [id number] ([facility]) 12/19/2021 Infusion Hematology and Oncology Scheduled Referrals Name Type Priority Associated Diagnoses Order S chedule Referral to Outpatient Referral Routine Malignant neoplasm Or dered: Familial Cancer of head of pancreas 10/21 documented as of this encounter Results DPYD PCR (10/21/2021 12:15 PM EDT) Component Value Ref Test Analysis Performed At [facility] Range Method Time Signature DPYD PCR INDICATION FOR STUDY: DPYD Genotyping KAMALJIT Rajan RACIEL RESULTS: Normal metabolizer, *1/*1 genotype [facility] INTERPRETATION: ??Normal gen otype, with normal [...] probes for each varian t: DPYD*2A ??(c.1905+1G>A, [id number]), DPYD*13 (c.1679T>G , [id number]), and DP YD c.2846A>T ([id number]). All variant positions are provided on the [...] Genomics and [employer] (CG[employer]) at the [facility]. It has not been cleared or approved [...] Clin Pharmacol Ther. 2018 Apr;103(2):21 0-216. PMID: [id number] 3. Arash Hammond, Alesia Champion, Mel Thrasher, et al. Fluorouracil Ther apy and DPYD Genotype. In: Medical Genetics Summaries [Internet]. B jose TRAN): [employer] [place] Bright!Tax Inf [facility] (); 2011? 2015 3. PMID: [id number] Specimen Anatomical Collection Method Collection Time Receive d Time (Source) Location / / Volume Laterality Blood 10/21/2021 12:15 10/21/2021 1:57 PM EDT PM EDT Resulting Agency Comment Spec In Lab Eric Orantes MD CHEMISTRY ORDERABLES Performing Organization Address City/State/ZIP Code Phon e Number [address] (ABNORMAL) Carbohydrate Antigen 19-9 (10/21/2021 12:15 PM EDT) athologist Signature CA 19-9 >32627.0 <=35.0 KAMALJIT SCHRADER (H) u/ml [facility] Comment: This result was generated using a Fili Farhan immunoassay. ??Results obtained from other methods or manufacturers hermelinda ot be used interchangeably with this method. Specimen Anatomical Collection Method Collection Time Receive d Time (Source) Location / / Volume Laterality Blood 10/21/2021 12:15 10/21/2021 PM EDT 12:22 PM EDT Resulting Agency Comment Spec In Lab Eric Orantes MD CHEMISTRY ORDERABLES Performing Organization Address City/[facility]/[place] [address] (ABNORMAL) Comprehensive metabolic panel (non-fasting) (10/21/2021 12:15 PM EDT) athologist Signature Glucose Lvl 164 65 - 199 [facility] mg/dL [facility] Comment: Diabetes: >=200 mg/dL plus symp toms BUN 13 10 - 20 mg/dL [facility] Creatinine 0.69 (L) 0.80 - 1.50 mg/dL [facility] Sodium 138 135 - 145 [...] estions. Chloride 103 98 - 107 mmol/L [facility] CO2 26 22 - 31 mmol/L [facility] Anion Gap 9 5 - 15 mmol/L [facility] Calcium 8.4 (L) 8.5 - 10.5 mg/dL [facility] Total Protein 6.5 6.1 - 8.0 g/dL [facility] Albumin 3.0 (L) 3.2 - 5.2 g/dL [facility] AST 72 (H) 0 - 39 unit/L [facility] ALT 70 (H) 0 - 55 unit/L [facility] Alk Phos 672 (H) 40 - 130 unit/L [facility] Total Bilirubin 3.5 (H) 0.2 - 1.3 mg/dL [facility] Estimated GFR 101 >=60 mL/min/1.73 m?? [facility] Comment: This patient's estimated GFR [...] Resulting Agency Comment Spec In Lab Eric Orantes MD CHEMISTRY ORDERABLES Performing Organization Address City/State/[place] [address] documented in this encounter Visit Diagnoses Diagnosis Malignant neoplasm of head of pancreas Macrocytic anemia Unspecified deficiency anemia Malignant neoplasm of head of pancreas documented in this encounter Care Teams Mortgage Loan Officer Relationship Specialty Start Date End Date William Wade PA PCP - General Family Medicine 08/31/[address] [place] [address] [place] [address] documented as of this encounter
--- OUTSIDE RECORDS SUMMARY | 2021-11-07 00:54 | XMS_ITS | Encounter Summary ---
:1955 Author Organization [facility] [place] [address] Care Team Providers Name Role Phone William Wade Primary Care Provider Reason for Referral Diagnostic Test (Routine) - Closed Specialty Diagnoses / Procedures Referred By Contact Refer red To Contact Radiology Diagnoses Jaundice Humberto Dumont MD [facility] Rad Ct Scan Procedures CT Chest w Contrast [place], [place] [id number] [place] [phone] Referral ID Status Reason Start Date Expiration Date Visits V isits Requested Authorized [id number] Closed Specialty 10/07/2021 04/09/2023 1 1 Service Requested Reason for Visit Diagnostic Test (Routine) - Closed Specialty Diagnoses / Procedures Referred By Contact Refer red To Contact Radiology Diagnoses Jaundice Humberto Dumont MD [facility] Rad Ct Scan Procedures [place] [address] [place] [address] Referral ID Status Reason Start Date Expiration Date Visits V isits Requested Authorized [id number] Closed Specialty 10/07/2021 04/09/2023 1 1 Service Requested Encounter Details Date Type Department Care Team Description 10/21/[address] Scan at [facility] Humberto Dumont MD [facility] [place] [address] [place] [address] [phone] (Wo rk) Social History Tobacco Use Types [...] Hematology and Oncology Eric Streeter MD [facility] [address] [place], [place] 0[address] (Wo rk) 11/07/2021 Infusion Hematology and Oncology 11/07/2021 Office Visit Hematology and Oncology Irena Hinojosa RD [facility] [place], [place] 0375 (Wo rk) 11/21/2021 Office Visit Hematology and Oncology Eric Streeter MD [facility] [address] [place], [place] 0[address] (Wo rk) 11/21/2021 Infusion Hematology and Oncology 12/05/2021 Office Visit Hematology and Oncology Eric Streeter MD [facility] [address] [place], [place] 0375 (Wo rk) 12/05/2021 Infusion Hematology and Oncology 12/19/2021 Office Visit Hematology and Oncology Eric Streeter MD [facility] [address] [place], [place] 0375 (Wo rk) 12/19/2021 Infusion Hematology and Oncology documented as of this encounter Procedures Procedure Name Priority Date/Time Associated Diagnosis Comme nts CT CHEST W CONTRAST Routine 10/21/2021 1:42 PM Jaundice Re sults for this EDT procedure are i n the results section. documented in this encounter Results CT Chest w Contrast (10/21/2021 1:42 PM [...] who have questions please contact the health plant care worker that requested your imaging first. [...] ho have questions please contact the health plant care worker that requested your imaging first. Humberto Dumont MD IMG CT ORDERABLES documented in this encounter Visit Diagnoses Diagnosis Jaundice Jaundice, unspecified, not of Malignant neoplasm of head of pancreas documented in this encounter Administered Medications Inactive Administered Medications - up to 3 most recent administrations Medication Order MAR Action Action Date Dose Rate Site iohexoL (Omnipaque) (240 mg/mL) Given 10/21/2021 2:00 PM EDT 50 mLs solution 0-200 mL 0-200 mL, Intravenous, ONCE, 1 dose, On Wed10/21/21 at 1400, Warning Vesicant/Irritant Medication , Radiology Contrast, Routine documented in this encounter Care Teams Drawing Operator Relationship Specialty Start Date End Date William Wade PA PCP - General Family Medicine 08/31/[address] [place] [address] [place] [address] documented as of this encounter
--- OUTSIDE RECORDS SUMMARY | 2021-11-07 00:54 | XMS_ITS | Encounter Summary ---
:1955 Author Organization [facility] Address [facility] [place] [address] Care Team Providers Name Role Phone William Wade Primary Care Provider Encounter Details Date Type Department Care Team Description 10/08/2021 Telephone [place] [facility] Humberto Dumont MD [facility] [place] [address] [place] [address] [phone] (Wo rk) Social History Tobacco Use Types [...] Telephone Encounter - Humberto Dumont MD - 10/08/2021 3:43 PM EDT I discussed pathology results with Mr Duarte by phone who is scheduled to meet with medical and surgical oncology. Letter also sent. documented in this encounter Plan of Treatment Upcoming Encounters Date Type Specialty Care Team Description 11/07/2021 Office Visit Hematology and Oncology Eric Streeter MD [facility] [place], [place] 0375 (Wo rk) 11/07/2021 Infusion Hematology and Oncology 11/07/2021 Office Visit Hematology and Oncology Irena Hinojosa RD [facility] [place], [place] 0375 (Wo rk) 11/21/2021 Office Visit Hematology and Oncology Eric Streeter MD [facility] [address] [place], [place] 0375 (Wo rk) 11/21/2021 Infusion Hematology and Oncology 12/05/2021 Office Visit Hematology and Oncology Eric Streeter MD [facility] [address] [place], [place] 0375 (Wo rk) 12/05/2021 Infusion Hematology and Oncology 12/19/2021 Office Visit Hematology and Oncology Eric Streeter MD [facility] [place], [place] 0375 (Wo rk) 12/19/2021 Infusion Hematology and Oncology documented as of this encounter Visit Diagnoses Not on filedocumented in this encounter Care Teams Call Center Nurse Relationship Specialty Start Date End Date William Wade PA PCP - General Family Medicine 08/31/[address] [place] [address] [place] [address] documented as of this encounter
--- OUTSIDE RECORDS SUMMARY | 2021-11-07 00:54 | XMS_ITS | Encounter Summary ---
:1955 Author Organization [place] [address] Care Team Providers Name Role Phone William Wade Primary Care Provider Encounter Details Date Type Department Care Team Description 10/14/2021 Laboratory Appointment Lab 3L [facility] Jaundice; [facility] [place] [id number] Social History Tobacco Use Types Packs/Day Years [...] place to sleep or slept in a custodial (including now)? Sex Assigned at Date Recorded Not on file documented as of this encounter Plan of Treatment Upcoming Encounters Date Type Specialty Care Team Description 11/07/2021 Office Visit Hematology and Oncology Eric Streeter MD [facility] [address] [place], [place] 0[address] (Wo rk) 11/07/2021 Infusion Hematology and Oncology 11/07/2021 Office Visit Hematology and Oncology Irena Hinojosa RD [facility] DRIVE [place], [place] 0375 (Wo rk) 11/21/2021 Office Visit Hematology and Oncology Eric Streeter MD [facility] [address] [place], [place] 0[address] (Wo rk) 11/21/2021 Infusion Hematology and Oncology 12/05/2021 Office Visit Hematology and Oncology Eric Streeter MD [facility] [address] [place], [place] 0[address] (Wo rk) 12/05/2021 Infusion Hematology and Oncology 12/19/2021 Office Visit Hematology and Oncology Eric Streeter MD [facility] [address] [place], [place] 0375 (Wo rk) 12/19/2021 Infusion Hematology and Oncology documented as of this encounter Procedures Procedure Name Priority Date/Time Associated Comments Diagnosis SCAN, PERIPHERAL Routine 10/14/2021 10:22 Results for this BLOOD AM EDT procedure are i n the [...] the results section. HC CBC,PLT & AUTO Routine 10/14/2021 10:22 Jaundice DIFF AM EDT HC VENIPUNCTURE Routine 10/14/2021 10:22 Jaundice Results for this AM EDT procedure are i n the results section. BASIC METABOLIC PANEL Routine 10/14/2021 10:22 Jaundice Re sults for this (NON-FASTING) AM EDT procedure are in the results section. documented in this encounter Results Scan, Peripheral Blood (10/14/2021 10:22 AM EDT) [facility] Method Time Signature Plat Estimate Normal [facility] RBC Morphology Abnormal [facility] Macrocytes 6-10 /HPF [facility] Specimen Anatomical Collection Method Collection Time Receive d Time (Source) Location / / Volume Laterality Blood 10/14/2021 10:22 10/14/2021 AM EDT 10:27 AM EDT Resulting Agency Comment Spec In Lab Humberto Dumont MD HEMATOLOGY ORDERABLES Performing Organization Address City/State/[place] [address] (ABNORMAL) Differential, Automated (10/14/2021 10:22 AM EDT) [facility] Method Time Signature Neutrophils % 80.5 % [facility] Neutr Abs (ANC) 8.32 (H) 1.70 - [facility] 6.10 [facility] x10(3)/[facility] LABORATORY Lymphocytes % 13.9 % [facility] Lymphocytes Abs 1.4 0.9 - 3.2 [facility] x10(3)/[facility] LABORATORY Monocytes % 4.2 % [facility] Monocyte Abs 0.4 0.3 - 0.9 [facility] x10(3)/[facility] LABORATORY Eosinophils % 0.4 % [facility] Eosinophils Abs 0.0 0.0 - 0.4 [facility] x10(3)/[facility] LABORATORY Basophils % 0.4 % [facility] Basophils Abs 0.0 0.0 - 0.1 [facility] x10(3)/[facility] LABORATORY Immature Gran % 0.60 % [facility] Comment: Immature granulocytes(IG's)percentage an d absolute count will include metamyelocytes, myelocytes, and promyelo cytes. Blood smears from CBCs yielding IG's will be scanned manually for concor dance. If this scan disagrees with the automated IG or if promyelocytes are not ed, a manual differential will be performed. Neda Gran Abs 0.06 (H) 0.00 - 0.04 x10(3)/[facility] LABORATORY Specimen Anatomical Collection Method Collection Time Receive d Time (Source) Location / / Volume Laterality Blood 10/14/2021 10:22 10/14/2021 AM EDT 10:27 AM EDT Resulting Agency Comment Spec In Lab Humberto Dumont MD HEMATOLOGY ORDERABLES Performing Organization Address City/State/[place] [address] (ABNORMAL) Hemogram (10/14/2021 10:22 AM EDT) [facility] gist Method Time Signature WBC 10.3 (H) 4.0 - 9.5 [facility] x10(3)/[facility] LABORATORY RBC 2.18 (L) 4.58 - [facility] 5.54 [facility] x10(6)/[facility] LABORATORY Hemoglobin 8.1 (L) 13.7 - [facility] 16.[facility] g/dL [facility] Hematocrit 25.2 (L) 40.5 - [facility] 48.5 % [facility] MCV 115.6 (H) 82.9 - [facility] 93.1 fL [facility] MCH 37.2 (H) 27.5 - [facility] 32.1 pg [facility] MCHC 32.1 32.0 - [facility] 35.7 g/dL [facility] Platelets 276 145 - 357 [facility] SCHRADER x10(3)/[facility] LABORATORY RDWSD 64.4 (H) 36.0 - [facility] 45.0 [facility] LABORATORY RDWCV 15.3 (H) 11.4 - [facility] 13.8 % [facility] MPV 10.8 7.6 - 12.9 [facility] SCHRAD[facility] LABORATORY nRBC % Auto 0.0 % [facility] nRBC Abs Auto 0.000 0.000 - [facility] 0.000 [facility] x10(3)/[facility] LABORATORY Specimen Anatomical Collection Method Collection Time Receive d Time (Source) Location / / Volume Laterality Blood 10/14/2021 10:22 10/14/2021 AM EDT 10:27 AM EDT Resulting Agency Comment Spec In Lab Humberto Dumont MD HEMATOLOGY ORDERABLES Performing Organization Address City/State/[place] [address] (ABNORMAL) Carbohydrate Antigen 19-9 (10/14/2021 10:22 AM EDT) P athologist Signature CA 19-9 >18653.0 <=35.0 [facility]AL[facility] SCHRADER (H) u/ml [facility] Comment: This result was generated using a Fili Farhan immunoassay. ??Results obtained from other methods or manufacturers hermelinda ot be used interchangeably with this method. Specimen Anatomical Collection Method Collection Time Receive d Time (Source) Location / / Volume Laterality Blood 10/14/2021 10:22 10/14/2021 AM EDT 10:27 AM EDT Resulting Agency Comment Spec In Lab Humberto Dumont MD CHEMISTRY ORDERABLES Performing Organization Address City/State/ZIP Code Phon e Number [address] (ABNORMAL) Basic Metabolic Panel (non-fasting) (10/14/2021 10:22 AM EDT) P athologist Signature Glucose Lvl 268 (H) 65 - 199 [facility] mg/dL [facility] Comment: Diabetes: >=200 mg/dL plus symp toms BUN 18 10 - 20 mg/dL [facility] Creatinine 0.74 (L) 0.80 - 1.50 mg/dL [facility] Sodium 133 (L) 135 - 145 mmol/L [facility] Potassium 4.4 3.5 - 5.0 mmol/L [facility] Comment: Please note: ??Patients with WBC >100,00 0 may have falsely elevated Potassium levels. ??For accurate Potassium quantif ication in these patients send serum separator tube (gold top) for subsequent determinations. ??Contact the Clinical Chemistry Laboratory if there are any qu estions. Chloride 98 98 - 107 mmol/L [facility] CO2 23 22 - 31 mmol/L [facility] Anion Gap 12 5 - 15 mmol/L [facility] Calcium 8.7 8.5 - 10.5 mg/dL [facility] LABORATORY Estimated GFR 99 >=60 mL/min/1.73 m?? [facility] Comment: This patient's estimated GFR [...] (Source) Location / / Volume Laterality Blood 10/14/2021 10:22 10/14/2021 AM EDT 10:27 AM EDT Resulting Agency Comment Spec In Lab Humberto Dumont MD CHEMISTRY ORDERABLES Performing Organization Address City/State/[place] [address] (ABNORMAL) Hepatic Function Panel (10/14/2021 10:22 AM EDT) [facility] gist Method Time Signature Total Protein 6.9 6.1 - 8.0 K[facility]AL[facility] RACIEL g/dL [facility] Albumin 2.9 (L) 3.2 - 5.2 K[facility]AL[facility] RACIEL g/dL [facility] AST 161 (H) 0 - 39 KAMAL[facility] RACIEL unit/L [facility] ALT 123 (H) 0 - 55 [facility] unit/L [facility] Alk Phos 1,072 (H) 40 - 130 KAMALJIT RACIEL unit/L [facility] Total 5.2 (H) 0.2 - 1.3 [facility] Bilirubin mg/dL [facility] Bili, Direct 3.5 (H) 0.0 - 0.3 [facility] mg/dL [facility] Specimen Anatomical Collection Method Collection Time Receive d Time (Source) Location / / Volume Laterality Blood 10/14/2021 10:22 10/14/2021 AM EDT 10:27 AM EDT Resulting Agency Comment Spec In Lab Humberto Dumont MD CHEMISTRY ORDERABLES Performing Organization Address City/State/[place] [address] documented in this encounter Visit Diagnoses Diagnosis Jaundice Jaundice, unspecified, not of Biliary obstruction Obstruction of bile duct Malignant neoplasm of head of pancreas documented in this encounter Care Teams Primary Care Sales Representative Relationship Specialty Start Date End Date William Wade PA PCP - General Family Medicine 08/31/[address] [place] [address] [place] [address] documented as of this encounter
--- OUTSIDE RECORDS SUMMARY | 2021-11-07 00:54 | XMS_ITS | Encounter Summary ---
:1955 Author Organization [facility] [place] [address] Care Team Providers Name Role Phone William Wade Primary Care Provider Reason for Visit Reason Onset Date Comments Establish Care 10/13/2021 Encounter Details Date Type Department Care Team Description 10/13/2021 Patient Outreach Hematology and Oncology Fhaad Giron , RN Establish Care at [facility] [place] [address] Social History Tobacco Use Types Packs/Day [...] place to sleep or slept in a alf (including now)? Sex Assigned at Date Recorded Not on file documented as of this encounter Plan of Treatment Upcoming Encounters Date Type Specialty Care Team Description 11/07/2021 Office Visit Hematology and Oncology Eric Streeter MD [facility] [address] [place], [place] [address] (Wo rk) 11/07/2021 Infusion Hematology and Oncology 11/07/2021 Office Visit Hematology and Oncology Irena Hinojosa RD [facility] [place] [address] (Wo rk) 11/21/2021 Office Visit Hematology and Oncology Eric Streeter MD [place], [place] 0375 (Wo rk) 11/21/2021 Infusion Hematology and Oncology 12/05/2021 Office Visit Hematology and Oncology Eric Streeter MD [facility] [address] [place], [place] 0[address] (Wo rk) 12/05/2021 Infusion Hematology and Oncology 12/19/2021 Office Visit Hematology and Oncology Eric Streeter MD [facility] [address] [place], [place] 0[address] (Wo rk) 12/19/2021 Infusion Hematology and Oncology documented as of this encounter Visit Diagnoses Not on filedocumented in this encounter Care Teams Biomedical Engineering Technician Relationship Specialty Start Date End Date William Wade PA PCP - General Family Medicine 08/31/[address] [place] [address] [place] [address] documented as of this encounter
--- OUTSIDE RECORDS SUMMARY | 2021-11-07 00:54 | XMS_ITS | Encounter Summary ---
:1955 Author Organization [facility] Address [facility] [place] [address] Care Team Providers Name Role Phone William Wade Primary Care Provider Encounter Details Date Type Department Care Team Description 10/22/2021 Telephone Hematology and Oncology at [facility] e, Eric Goyal MD [facility] [place] [address] [place] [address] [phone] (Wo rk) Social History Tobacco Use Types [...] place to sleep or slept in a residential (including now)? Sex Assigned at Date Recorded Not on file documented as of this encounter Plan of Treatment Upcoming Encounters Date Type Specialty Care Team Description 11/07/2021 Office Visit Hematology and Oncology Eric Streeter MD [facility] [place], [place] 0[address] (Wo rk) 11/07/2021 Infusion Hematology and Oncology 11/07/2021 Office Visit Hematology and Oncology Irena Hinojosa RD [facility] [place] [address] (Wo rk) 11/21/2021 Office Visit Hematology and Oncology Eric Streeter MD [facility] [address] [place], [place] 0[address] (Wo rk) 11/21/2021 Infusion Hematology and Oncology 12/05/2021 Office Visit Hematology and Oncology Eric Streeter MD [facility] [place], [place] [address] (Wo rk) 12/05/2021 Infusion Hematology and Oncology 12/19/2021 Office Visit Hematology and Oncology Eric Streeter MD [facility] [place], [place] 0375 (Wo rk) 12/19/2021 Infusion Hematology and Oncology Scheduled Orders Name Type Priority Associated Diagnoses Order S chedule CBC (with Diff) Lab STAT Malignant neoplasm of As Needed for 24 head of pancreas Occurrences starting Macrocytic anemia 10/22/2021 until 10/22/2022 Comprehensive metabolic Lab STAT Malignant neoplas m of As Needed for 24 panel (non-fasting) head of panc reas Occurrences starting Macrocytic anemia 10/22/2021 until 10/22/2022 Carbohydrate Antigen 19-9 Lab STAT Malignant neopl asm of As Needed for 24 head of pancreas Occurrences starting Macrocytic anemia 10/22/2021 until 10/22/2022 documented as of this encounter Visit Diagnoses Diagnosis Malignant neoplasm of head of pancreas Macrocytic anemia Unspecified deficiency anemia Malignant neoplasm of head of pancreas documented in this encounter Care Teams Lead Quality Technician Relationship Specialty Start Date End Date William Wade PA PCP - General Family Medicine 08/31/[address] [place] [address] [place] [address] documented as of this encounter
--- OUTSIDE RECORDS SUMMARY | 2021-11-07 00:54 | XMS_ITS | Encounter Summary ---
:1955 Author Organization [facility] [place] [address] Care Team Providers Name Role Phone William Wade Primary Care Provider Encounter Details Date Type Department Care Team Description 10/24/2021 Telephone Hematology and Oncol vanessa at [facility] Caroline Maradiaga [facility] [place] [address] Social History Tobacco Use Types Packs/Day [...] place to sleep or slept in a assisted (including now)? Sex Assigned at Date Recorded Not on file documented as of this encounter Miscellaneous Notes Telephone Encounter - Caroline Maradiaga - 10/24/2021 1:20 PM EDT [facility] Fire Alarm Installer spoke with Jeff to review his responses to SDOH+ screening. Iexplained my role and at this time he declined assistance. Caroline Maradiaga documented in this encounter Plan of Treatment Upcoming Encounters Date Type Specialty Care Team Description 11/07/2021 Office Visit Hematology and Oncology Eirc Streeter MD [facility] ONCOLOGY [place], [place] 0[address] (Wo rk) 11/07/2021 Infusion Hematology and Oncology 11/07/2021 Office Visit Hematology and Oncology Irena Hinojosa RD [facility] H[place]OLOGY AND [place], [place] 0375 (Wo rk) 11/21/2021 Office Visit Hematology and Oncology Eric Streeter MD [facility] [address] [place], [place] 0[address] (Wo rk) 11/21/2021 Infusion Hematology and Oncology 12/05/2021 Office Visit Hematology and Oncology Eric Srteeter MD [facility] [address] [place], [place] 0375 (Wo rk) 12/05/2021 Infusion Hematology and Oncology 12/19/2021 Office Visit Hematology and Oncology Eric Streeter MD [facility] [place], [place] 0375 (Wo rk) 12/19/2021 Infusion Hematology and Oncology documented as of this encounter Visit Diagnoses Not on filedocumented in this encounter Care Teams Broiler Chef Or Cook Relationship Specialty Start Date End Date William Wade PA PCP - General Family Medicine 08/31/[address] [place] [address] [place] [address] documented as of this encounter
--- OUTSIDE RECORDS SUMMARY | 2021-11-07 00:54 | XMS_ITS | Encounter Summary ---
:1955 [place] [address] Care Team Providers Name Role Phone William Wade Primary Care Provider Reason for Visit Auth/Cert Specialty Diagnoses / Procedures Referred By Contact Refer red To Contact Diagnoses Pancreas cancer pancreas cancer Scooby Stevens MD [facility] Procedures PRO LAP, DX SURGICAL ABD W/BIOPSY PRO INSERT TUNNELED CV CATH W SUBQ PORT, AGE 4 YRS OR OLDER LAPAROSCOPY,SURGICAL,WITH BIOPSY, SINGLE OR MULTIPLE (WRVU 5.44) NAKITA\SILVIA.CATHETER,TUNNELED, WITH SQ PORT OR PUMP OVER 5YR (WRVU 6.04) [facility] [place] [address] Referral ID Status Reason Start Date Expiration Date Visits Requ ested Visits Authorized [id number] 1 1 Encounter Details Date Type Department Care Team Description 10/17/2021 Surgery Outpatient Surgery Scooby Stevens, NAKITA\SILVIA.CATHETER,TUNNE Center Julisa Jorge MD LED, WITH SQ PORT OR [facility] DR BURRELL OVER 5YR ([facility] GENERAL SURGE RY 6.04) [place] [address] [place] [id number] [phone] Social History Tobacco Use Types Packs/Day Years [...] place to sleep or slept in a nursing home (including now)? Sex Assigned at Date Recorded Not on file documented as of this encounter Last Filed Vital Signs Vital Sign Reading Time Taken Comments Blood Pressure 141/48 10/17/2021 12:00 PM EDT Pulse 66 10/17/2021 12:00 PM EDT Temperature 36.5 ??C (97.7 ??F) 10/17/2021 11:53 AM EDT Respiratory Rate 16 10/17/2021 12:00 PM EDT Oxygen Saturation 100% 10/17/2021 12:00 PM EDT Inhaled Oxygen Concentration - - Weight - - Height - - Body Mass Index - - documented in this encounter Discharge Instructions Discharge InstructionsJyoti Lutz RN - 10/17/2021 9:17 AM EDT General Anesthesia Discharge Instructions Go home and rest. You may be sleepy for several hours. Take it easy as sudden position changes may cause nausea and/or dizziness. Use caution on stairs. Do not smoke if you are alone. Follow a light to regular diet as tolerated today. If nausea occurs, start with clear liquids, and progress slowly to a regular diet. Do not drive, operate machinery, drink alcoholic beverages or make any legal decisions after having general anesthesia. The medications given change your reaction time and alter your judgement. IV site -- slight redness is normal, you can use warm compresses. If tenderness and redness increases or foul drainage occurs, please contact your M.D. Patients who have had endotracheal tubes/LMA (tubes used by the anesthesia staff to ensure a safe airway during your operation) may have a sore throat. This is normal and cold liquids or soothing lozenges will help ease this discomfort. Narcotic pain medications can cause constipation, please ask the surgeons office what they recommendfor prevention of this. Some non-pharmaceutical means of constipation prevention include increasing intake of fluids, eating more fruits and vegetables as well as fruit juices. If you are uncomfortable and/or unable to urinate within 8 hours of discharge and it is before 5 pm,call your physician. If it is after 5pm go to the closest emergency room or call the hospital punching machine operator at [phone] and ask for physician change control analyst covering for your physician. Questions or problems after 5pm or on a weekend: Call the [facility] punching machine operator at and ask for the physician change control analyst covering for your doctor. At 915am you received 1000 mg of acetaminophen- Your next dose should not be taken before 8 hours have passed. Next dose not before- 1715 You should not take more than a total of 3000 mg of acetaminophen in a 24 hour period. Patient InstructionsScooby Stevens MD - 10/17/2021 11:52 AM EDT OK to shower. You have dermabond - 'superglue' covering the incisions which will start to peel off in 1-2 weeks. Ok to peel it off once it starts to peel away. Tylenol alternating with Ibuprofen as needed for postop pain. Please follow up with next week on Wednesday to complete the remaining appointments we will meet with Dr. Streeter of medical oncology. Your chemotherapy will hopefully be able to get started soon though we may want to start you down here for the first cycle and then up at [place] at the cancer center for the remaining cycles which would be closer to home. If you have any questions about the incisions, any pain or nausea or other concerns related to the surgery please call the surgery clinic nurses at [phone]. If you have any concerns at night or when the clinic is closed then please call the main [facility] number and ask to speak with the general surgery resident change control analyst. That number is [phone]. Dr. Stevens will see you back after you finish the neoadjuvant therapy. documented in this encounter Medications at Time [...] mouth daily. documented as of this encounter Progress Notes Nancy Castillo RN - 10/17/2021 12:50 PM EDT Discharge instructions and medications reviewed with patient and escort. All questions answered and written copy sent home with patient. Patient ambulated to car for discharge accompanied by [facility] staff member. documented in this encounter H&P Notes Scooby Stevens MD - 10/17/2021 10:01 AM EDT Patient Name: Jeff Duarte Patient Age: 66 y.o. Birthdate: 1955 Admit date: 10/17/2021 Attending Physician: Scooby Stevens MD I saw Ruben over in the preop holding area at the [facility]. He is by himself but his friend Eli roberts down from the [facility]. He is feeling well. No recurrent jaundice symptoms. No chest pain or shortness of breath. No fevers. No concerns. Informed consent was obtained to proceed with laparoscopy to complete the staging work-up and then Mediport placement to facilitate getting started on chemotherapy per Dr. Streeter. Okay to proceed. Joanne Stevens MD 10/17/2021 10:02 AM documented in this encounter Miscellaneous Notes Op Note - Scooby Stevens MD - 10/17/2021 10:59 AM EDT [facility] Operative Note Patient Name: Jeff Duarte : [id number] MR#: [id number] Case Date: 10/17/2021 Surgeon: Surgeon(s) and Role: * Scooby Stevens MD - Primary Preoperative diagnosis: pancreas cancer Postoperative diagnosis: pancreas cancer Procedure(s) (LRB): LAPAROSCOPY,SURGICAL,WITH BIOPSY, SINGLE OR MULTIPLE (WRVU 5.44) (N/A) NAKITA\SILVIA.CATHETER,TUNNELED, WITH SQ PORT OR PUMP OVER 5YR (WRVU 6.04) (N/A) Findings: No evidence for metastatic disease. He did have some what look like bile tinged ascites mostly in the right upper quadrant which we aspirated and sent for cytology. The liver looked healthy appearing with no surface nodules. The gallbladder was thickened and somewhat distended consistent with recent obstruction. An 8 [place] Mediport PowerPort was placed successfully in the right subclavian vein. Placement was confirmed with fluoroscopy. Anesthesia: General Estimated Blood Loss: 5 mL Specimens removed during surgery: Order Name Source Comment Collection Info Order Time CYTOPATHOLOGY NON-GYNECOLOGICAL Ascities fluid question Malignant cells 10/17/2021 11:36 AM Pertinent clinical data and significant therapy: pancreas cancer Clinical impression: pancreas cancer Procedure Type: Other (please specify in Comments Field below) Specimen Type: Other, add description and source of specimen in comments Description and source of specimen: ascities fluid question malignant cells Drains: * No LDAs found * Surgical Closure: Primary Closure - skin incision is completely closed without any wires, eva, drains or other devices Disposition: awakened from anesthesia, extubated and taken to the recovery room in a stable condition, having suffered no apparent untoward event. Condition: doing well without problems (Please see the Surgical Encounter Summary for any Implant and Specimen details pertinent to this patient.) HPI/Surgical Indications: As pancreas cancer. Laparoscopy to complete the staging work-up and then Mediport placement to facilitate getting started with neoadjuvant chemotherapy. Procedure Description: Mr. Duarte was identified in the preop holding area and taken to the operating room and placed supine on the operating table. Monitoring lines and Venodyne boots were placed. General anesthesia was induced and he was intubated without complication. An oralgastric tube was placed. IV antibiotics was given (ancef) prior to initiating the procedure. The right neck and upper chest was prepped with ChloraPrep as well as the abdomen in the usual sterile fashion. We proceeded to drape the neck. Ioban strips were used to secure the drapes to the skin. We first placed the sterile drapes for the abdomen, diagnostic laparoscopy part of the procedure. We then placed the sterile drapes for the Mediport portion of the procedure. The towel were secured to the skin with Ioban strips. A second sterile drape was then placed over the initial abdomen part of the sterile drape that it could be sequentially removed after completion of the Mediport part of the procedure maintaining sterile field in both the neck/chest as well as the abdomen. The mediport portion of the procedure was started. We selected an 8 Fr POWERPORT mediport. Quarter percent Marcaine was used to create a local block just beneath the band in the right clavicle and the anterior chest wall. The local was injected in the subcutaneous space as well as along the periosteumof the right clavicle. We then created an obliquely oriented 3-4 cm incision beneath the clavicle inthe anterior chest. Dissection was carried down with cautery to expose the chest wall fascia. He wasthen positioned into the trendelenberg position and using Seldinger technique the right subclavian vein was cannulated (1st attempt). There was nonpulsatile dark blood return consistent with venous cannulation. We connected the needle to IV tubing to confirm venous placement without pulsation. A wire was then introduced and the needle was removed. With the wire in place we then brought in the C-arm to perform fluoroscopy and confirm that the wire was in the left subclavian vein and then passed down t hrough the SVC into the left atrium. When successful cannulation and wire placement was confirmed with fluoroscopy the introducer was inserted over the wire and then the introducer with the peel-away sheath was inserted into the subclavian vein over the wire. The introducer and wire were removed to allow the catheter to be placed down the peel-away sheath and into the subclavian vein. The peel-away sheath was removed and the mediport was placed within the small subcutaneous pocket. We then connectedthe catheter to the Mediport securing it with the small plastic hub. Before placing the Mediport within the pocket we flushed it with the Page needle and it flushed easily as well as blood return was easy to aspirate. The C-arm was then brought back into the field and fluoroscopy confirmed the catheter tip just outside the right atrium in the superior vena cava. The port was stiched to the chest wall fascia using an 0- Vicryl stich. Using the Page needle the port was accessed and there was good aspiration of blood and it flushed nicely with heparinized saline (1000 units in 100 cc of saline- 10 u/ml). We then proceeded to close the incision. Several interrupted deep dermal 3-0 Vicryl stitches were placed to reapproximate the skin and then finally the skin was closed with a running 4-0 Monocryl kohli bcuticular stitch. Final fluoroscopy confirmed placement with the catheter showing no kinks, the port flush on the abdominal wall and the tip in the SVC. The port was then flushed with a Page needle and heparinized saline (1000 units in 10 ml of saline -100 units per cc). Dermabond was placed over the mediport incision. Next, the abdominal portion of the operation was started after we removed and reflected the Mediportdrapes cephalad to expose the underlying drapes for the abdominal portion of the operation. A 5mm Optivue port and zero degree camera were used to gain access to the abdomen under direct visualization without injury to underlying structures in the left mid/lateral abdomen. Once pneumoperitoneum was obtained. A single additional 5 mm port was placed under direct visualization after local injection into the right/lateral mid abdomen. Laparoscopic exploration showed only a small amount of bile tinged ascites mostly in the right upperquadrant. The ascites was aspirated and sent to cytology to evaluate for malignant cells. With upward retraction on the gallbladder the undersurface of the right liver was inspected. The undersurface of the left lateral segment was inspected in a similar fashion. The lesser sac was inspected through the transparent gastrohepatic ligament with no pathology noted. The 5 mm ports were removed under direct visualization with no bleeding noted. The pneumoperitoneum was completely evacuated prior to removing the last port. Finally the skin incisions were reapproximated with a 4-0 Monocryl subcuticular stitch. Dermabond was placed over the skin incisions. Mr. Duarte was awakened from anesthesia, extubated in the OR and taken to the recovery room in hemodynamically stable condition. I was present from start to finish. Attestation: Case Date: 10/17/2021 I performed this procedure without the involvement of a resident. SCOOBY STEVENS MD 10/17/2021 documented in this encounter Plan of Treatment Upcoming Encounters Date Type Specialty Care Team Description 11/07/2021 Office Visit Hematology and Oncology Eric Streeter MD [facility] DR ONCOLOGY [place], [place] [address] (Wo rk) 11/07/2021 Infusion Hematology and Oncology 11/07/2021 Office Visit Hematology and Oncology Irena Hinojosa RD [facility] HEMATOLOGY AND O NCOLOGY [place], [place] [address] (Wo rk) 11/21/2021 Office Visit Hematology and Oncology Eric Streeter MD [facility] ONCOLOGY [place], [place] [address] (Wo rk) 11/21/2021 Infusion Hematology and Oncology 12/05/2021 Office Visit Hematology and Oncology Eric Streeter MD [facility] ONCOLOGY [place], [place] [address] (Wo rk) 12/05/2021 Infusion Hematology and Oncology 12/19/2021 Office Visit Hematology and Oncology Eric Streeter MD [facility] ONCOLOGY [place], [place] [address] (Wo rk) 12/19/2021 Infusion Hematology and Oncology documented as of this encounter Procedures Procedure Name Priority Date/Time Associated Comments Diagnosis XR CHEST ONE VIEW Routine 10/17/2021 12:10 Result s for this PM EDT procedure are i n the results section. NON-FLAME ANNEALING MACHINE SETTER FINAL REPORT Routine 10/17/2021 11:37 Res ults [...] (WRVU 5.44) POCT GLUCOSE Routine 10/17/2021 9:54 AM Results f or this EDT procedure are i n the results section. documented in this encounter Results XR Chest One View (10/17/2021 12:10 PM EDT) Anatomical Region Laterality Modality Chest N/A Digital Radiography Specimen (Source) Anatomical Location Collection Method / Collectio n Time Received Time / Laterality Volume Impressions 10/17/2021 2:26 PM EDT Satisfactory placement of right subclavian port with expected postsurgical changes. I have personally reviewed the image(s) and the resident's interpretation and agree with the findings, Crystal Geronimo MD at 10/17/2021 2:26 PM Thank you for letting us participate in the care of this patient. ??If you are a health care provider and have any questi ons regarding this report, please contact the number below. ??For patients who have questions please contact the health home health care case manager that requested your imaging first. ? Electronically signed by: Crystal Geronimo MD, [facility] ([phone]), at 10/17/2021 2:26 PM Narrative 10/17/2021 2:26 PM EDT EXAMINATION: XR CHEST ONE VIEW CLINICAL HISTORY: Recovery room CXR to a ssess port placement TECHNIQUE: Single portable AP view of the chest COMPARISON: 04/25/2008 FINDINGS: The tip of the right subclavian access p ort projects at the lower SVC. The lung volumes accentuate perihilar an d bronchovascular markings with diffuse hazy opacities throughout both lungs. No pleural effusion or pneumothorax. There is perihilar fullness. Cardiomediastinal silhouette is within n ormal limits. Procedure Note Crystal Wilson MD - 2021 EXAMINATION: XR CHEST ONE VIEW CLINICAL HISTORY: Recovery room CXR to a ssess port placement TECHNIQUE: Single portable AP view of the chest COMPARISON: 04/25/2008 FINDINGS: The tip of the right subclavian access p ort projects at the lower SVC. The lung volumes accentuate perihilar an d bronchovascular markings with diffuse hazy opacities throughout both lungs. No pleural effusion or pneumothorax. There is perihilar fullness. Cardiomediastinal silhouette is within n ormal limits. IMPRESSION Satisfactory placement of right subclavi an port with expected postsurgical changes. I have personally reviewed the image(s) and the resident's interpretation and agree with the findings, Crystal Geronimo MD at 10/17/2021 2:26 PM Thank you for letting us participate in the care of this patient. If you are a health care provider and have any questi ons regarding this report, please contact the number below. For patients w ho have questions please contact the health home health care case manager that requested your imaging first. Electronically signed by: Crystal Geronimo MD, [facility] ([phone]), at 10/17/2021 2:26 PM Scooby Stevens MD IMG DX ORDERABLES Non-Flower Buncher Or Picker Final Report (10/17/2021 11:37 AM EDT) Component Value Ref Test Analysis Performed At [facility] Range Method Time Signature Non-Flower Buncher Or Picker [id number] ? Location: [facility] Final Report [place] The signing pathologist has (i) examined the relevant preparation(s) for the [facility] specimen(s) and (ii) rendered or confirmed the diagnosis(es) . HOSPITAL LABORATORY . ? No n-Flower Buncher Or Picker Final DIAGNOSIS Atypical Electronically signed by: ?Geraldo PETERSON, Brittaney Verified: ??10/21/2021 13:27 ??Pathologist Performed at: ??-[facility] Dept. of Pathology, [facility], [place], [place] DISCUSSION Ascites: Rare atypical cells with [...] MD PATHOLOGY/CYTOLOGY ORDERABLE S Performing Organization Address City/[facility]/ZIP [place] [address] Cytopathology Non-Gynecological (10/17/2021 11:37 AM EDT) Specimen Anatomical Collection Method Collection Time Receive d Time (Source) Location / / Volume Laterality AP Specimen 10/17/2021 11:37 10/17/2021 AM EDT 11:37 AM EDT Narrative [facility] - 10/17/2021 11:37 AM EDT Specimen requisition ordered. ??Separate Pathology report to follow Scooby Stevens MD PATHOLOGY/CYTOLOGY ORDERABLE S Performing Organization Address City/[facility]/ZIP Code Phon e Number [address] XR Fluoro No Rad <1Hr - OR Use (10/17/2021 11:20 AM EDT) Specimen (Source) Anatomical Location Collection Method / Collectio n Time Received Time / Laterality Volume Narrative Dicom, Auditing User - 10/17/2021 11:20 AM EDT This exam is auto-finalizing. No interpr etation was done. Scooby Stevens MD IMG FLUORO ORDERABLES (ABNORMAL) POCT Glucose (10/17/2021 9:54 AM EDT) P athologist Signature POC Glucose 213 (H) 65 - 199 JULISA RACIEL mg/dL [facility] Comment: Supplemental ranges: <140 mg/dL before meals <180 mg/dL all other times of the day Specimen Anatomical Collection Method Collection Time Receive d Time (Source) Location / / Volume Laterality Blood 10/17/2021 9:54 AM 9:54 EDT AM EDT Scooby Stevens MD POINT OF CARE TEST ORDERABLE S Performing Organization Address City/State/ZIP [place] [address] documented in this encounter Visit Diagnoses Not on filedocumented in this encounter Administered Medications Inactive Administered Medications - up to 3 most recent administrations Medication Order MAR Action Action Date Dose Rate Site acetaminophen (Tylenol) tablet 650 Given 10/17/2021 9:21 AM EDT 650 mg mg 650 mg, Oral, ONCE, 1 dose, On Wed10/17/21 at 0930, Administer with SIP of H2O only. Maximum dose of acetaminophen is 4,000 mg from all sources in 24 hours., Day of Surgery (Day of Procedure), Routine BUpivacaine (pf) (Marcaine) Given 10/17/2021 11:23 AM 3 mLs 19- Surgical Site (2.5 mg/mL) 0.25% injection EDT ONCE PRN, Starting on Wed10/17/21 at 1110, Until Wed10/17/21 at 1459, Intra-Operative (Intra-Procedure), Routine Given 10/17/2021 11:10 AM EDT 3 mLs 19- Surgical Site heparin (porcine) (1,000 Given 10/17/2021 11:16 AM 1,000 Units 19- Surgical Site units/mL) injection EDT ONCE PRN, Starting on Wed10/17/21 at 1113, Until Wed10/17/21 at 1459, Intra-Operative (Intra-Procedure), Routine Given 10/17/2021 11:13 AM EDT 1,000 Units 19- Surgical Site lactated ringers infusion Restarted 10/17/2021 10:28 AM EDT 1,000 mL, at 100 mL/hr, Intravenous, CONTINUOUS, Starting on Wed10/17/21 at 0930, Until Wed10/17/21 at 1252, Day of Surgery (Day of Procedure) New Bag 10/17/2021 9:55 AM EDT 1,000 mLs 100 mL/hr lidocaine (Xylocaine) 1% (10 Given 10/17/2021 11:23 AM 3 mLs 19- Surgical Site mg/mL) injection EDT ONCE PRN, Starting on Wed10/17/21 at 1111, Until Wed10/17/21 at 1459, Intra-Operative (Intra-Procedure), Routine Given 10/17/2021 11:11 AM EDT 3 mLs 19- Surgical Site documented in this encounter Active and Recently Administered Medications Times are shown in EDT. Scheduled Medication Order 10/15/2021 10/16/2021 10/17/2021 acetaminophen (Tylenol) tablet 650 mg (COMPLETED) 920 (Given - Provider: Jyoti Lutz RN) 650 mg, Oral, ONCE, 1 dose, On Wed at 0930, Administer with SIP of H2O only. Maximum dose of acetaminophen is 4,000 mg from all sources in 24 hours., Day of Surgery (Day of Procedure), Routine Continuous Medication Order 10/15/2021 10/16/2021 10/17/2021 lactated ringers infusion (CANCELED) 0955 (New Bag - Provider: Jyoti Lutz RN)1027 (Paused - Provider: Carla Stone CRNA - Comment: Switch to gravity)1028 (Restarted - Provider: Carla Stone CRNA)1143 (Anesthesia Volume Adjustment - Provider: Carla Stone CRNA) 1,000 mL, at 100 mL/hr, Intravenous, CON TINUOUS, Starting on Wed10/17/21 at 0930, Until Wed10/17/21 at 1252, Day of Surgery (Day of Procedure) PRN Medication Order 10/15/2021 10/16/2021 10/17/2021 BUpivacaine (pf) (Marcaine) (2.5 mg/mL) 0.25% injection (CANCELE D) 1110 (Given - Provider: Scooby Stevens MD - Comment: mixed 1:1 with lidocaine 1%)1123 (Given - Provider: Scooby Stevens MD - Comment: mixed 1:1 with 1% lidocaine) ONCE PRN, Starting on Wed10/17/21 at 111 0, Until Wed10/17/21 at 1459, Intra- Operative (Intra-Procedure), Routine heparin (porcine) (1,000 units/mL) injection (CANCELED) 1113 (Given - Provider: Scooby Stevens MD - Comment: mixed with 100ml of NS for beginning flush)1116 (Given - Provider: Scooby Stevens MD - Comment: 1000 units mixed in 10ml for final flush 3ml administered) ONCE PRN, Starting on Wed10/17/21 at 111 3, Until Wed10/17/21 at 1459, Intra- Operative (Intra-Procedure), Routine lidocaine (Xylocaine) 1% (10 mg/mL) injection (CANCELED) 1111 (Given - Provider: Scooby Stevens MD - Comment: mixed 1:1 with 0.25% bupvicane)1123 (Given - Provider: Scooby Stevens MD - Comment: mixed 1:1 with 0.25% bupivicane) ONCE PRN, Starting on Wed10/17/21 at 111 1, Until Wed10/17/21 at 1459, Intra- Operative (Intra-Procedure), Routine documented in this encounter Care Teams Fx Artist Relationship Specialty Start Date End Date William Wade PA PCP - General Family Medicine 08/31/[address] [place] [address] [place] [address] documented as of this encounter
--- OUTSIDE RECORDS SUMMARY | 2021-11-07 00:54 | XMS_ITS | Encounter Summary ---
:1955 Author Organization [place] [address] Care Team Providers Name Role Phone William Wade Primary Care Provider Reason for Visit Auth/Cert Specialty Diagnoses / Procedures Referred By Contact Refer red To Contact Diagnoses Pancreas cancer pancreas cancer Scooby Stevens MD [facility] Procedures PRO LAP, DX SURGICAL ABD W/BIOPSY PRO INSERT TUNNELED CV CATH W SUBQ PORT, AGE 5 YRS OR OLDER LAPAROSCOPY,SURGICAL,WITH BIOPSY, SINGLE OR MULTIPLE (WRVU 5.44) NAKITA\SILVIA.CATHETER,TUNNELED, WITH SQ PORT OR PUMP OVER 5YR (WRVU 6.04) [facility] [place] [address] Referral ID Status Reason Start Date Expiration Date Visits Requ ested Visits Authorized [id number] 1 1 Encounter Details Date Type Department Care Team Description 10/17/2021 Hospital Encounter Outpatient Surgery Jolynn Stevens, [place] Julisa Jorge MD [facility] [place] [address] [place] [address] [phone] Social History Tobacco Use Types Packs/Day Years [...] place to sleep or slept in a detention (including now)? Sex Assigned at Date Recorded Not on file documented as of this encounter Last Filed Vital Signs Vital Sign Reading Time Taken Comments Blood Pressure 142/53 10/17/2021 12:30 PM EDT Pulse 67 10/17/2021 12:30 PM EDT Temperature 36.5 ??C (97.7 ??F) 10/17/2021 11:53 AM EDT Respiratory Rate 18 10/17/2021 12:30 PM EDT Oxygen Saturation 98% 10/17/2021 12:30 PM EDT Inhaled Oxygen Concentration - - [...] closest emergency room or call the hospital concrete pump operator at [phone] and ask for physician production operations manager covering for your physician. Questions or problems after 5pm or on a weekend: Call the [facility] concrete pump operator at and ask for the physician production operations manager covering for your doctor. At 915am you [...] the first cycle and then up at [place] at the cancer center for the remaining cycles which would be closer to home. If you have any questions about the incisions, any pain or nausea or other concerns related to the surgery please call the surgery clinic nurses at [phone]. If you have any concerns at night or when the clinic is closed then please call the main [facility] number and ask to speak with the general surgery resident production operations manager. That number is [phone]. Dr. Stevens will see you back after [...] in the preop holding area at the [facility]. He is by himself but his friend Eli roberts down from the [facility]. He is feeling well. No recurrent jaundice [...] Stevens MD - 10/17/2021 10:59 AM EDT [facility] Operative Note Patient Name: Jeff Duarte : [id number] MR#: [id number] Case Date: 10/17/2021 Surgeon: Surgeon(s) and Role: [...] distended consistent with recent obstruction. An 8 Bengali Mediport PowerPort was placed successfully in the [...] Visit Hematology and Oncology Eric Streeter MD [facility] ONCOLOGY [place], [place] [address] (Luz fofana) 11/07/2021 Infusion Hematology and Oncology 11/07/2021 Office Visit Hematology and Oncology Irena Hinojosa RD [facility] [place] 0[address] (Luz fofana) 11/21/2021 Office Visit Hematology and Oncology Eric Streeter MD [facility] [address] [place], [place] 0[address] (Wo rk) 11/21/2021 Infusion Hematology and Oncology 12/05/2021 Office Visit Hematology and Oncology Eric Streeter MD [facility] ER ONCOLOGY [place], [place] 0[address] (Wo rk) 12/05/2021 Infusion Hematology and Oncology 12/19/2021 Office Visit Hematology and Oncology Eric Streeter MD [facility] ONCOLOGY [place], [place] 0[address] (Wo rk) 12/19/2021 Infusion Hematology and Oncology documented as of this encounter Procedures Procedure Name Priority Date/Time Associated Comments Diagnosis XR CHEST ONE VIEW Routine 10/17/2021 12:10 Result s for this PM EDT procedure are i n the results section. NON-DAMAGE ASSESSOR FINAL REPORT Routine 10/17/2021 11:37 Res ults [...] have questions please contact the health home care consultant that requested your imaging first. ? Narrative 10/17/2021 2:26 PM EDT EXAMINATION: XR [...] have questions please contact the health home care consultant that requested your imaging first. Scooby Stevens MD IMG DX ORDERABLES Non-Sql Ssrs Developer Final Report (10/17/2021 11:37 AM EDT) Component Value Ref Test Analysis Performed At [facility] Range Method Time Signature Non-Sql Ssrs Developer [id number] ? Location: [facility] Final Report HYMERA The signing pathologist has (i) examined the relevant preparation(s) for the [facility] specimen(s) and (ii) rendered or confirmed the diagnosis(es) . HOSPITAL LABORATORY . ? No n-Sql Ssrs Developer Final DIAGNOSIS Atypical Electronically signed by: ?Geraldo PETERSON, [facility] Verified: ??10/21/2021 13:27 ??Pathologist Performed at: ??-[facility] Dept. of Pathology, [place], [place] DISCUSSION Ascites: Rare atypical cells with [...] MD PATHOLOGY/CYTOLOGY ORDERABLE S Performing Organization Address City/[facility]/[place] [address] Cytopathology Non-Gynecological (10/17/2021 11:37 AM EDT) Specimen Anatomical Collection Method Collection Time Receive d Time (Source) Location / / Volume Laterality AP Specimen 10/17/2021 11:37 10/17/2021 AM EDT 11:37 AM EDT Narrative [facility] LABORAT ORY - 10/17/2021 11:37 AM EDT Specimen requisition ordered. ??Separate Pathology report to follow Scooby Stevens MD PATHOLOGY/CYTOLOGY ORDERABLE S Performing Organization Address City/[facility]/[place] [address] XR Fluoro No Rad <1Hr [...] POC Glucose 213 (H) 65 - 199 [facility] mg/dL [facility] Comment: Supplemental ranges: <140 mg/dL before meals <180 mg/dL all other times of the day Specimen Anatomical Collection Method Collection Time Receive d Time (Source) Location / / Volume Laterality Blood 10/17/2021 9:54 AM 9:54 EDT AM EDT Scooby Stevens MD POINT OF CARE TEST ORDERABLE S Performing Organization Address City/State/ZIP Code Phon e Number [place] [phone] documented in this encounter [...] Day of Surgery (Day of Procedure), Routine lactated ringers infusion Restarted 10/17/2021 10:28 AM EDT 1,000 mL, at 100 mL/hr, Intravenous, CONTINUOUS, Starting on Wed10/17/21 at 0930, Until Wed10/17/21 at 1252, Day of Surgery (Day of Procedure) New Bag 10/17/2021 9:55 AM EDT 1,000 mLs 100 mL/hr documented in this encounter Active and Recently Administered Medications Times are shown in EDT. Scheduled Medication Order 10/15/2021 10/16/2021 10/17/2021 acetaminophen (Tylenol) tablet 650 mg (COMPLETED) 09 (Given - Provider: Jyoti Lutz RN) 650 [...] Routine documented in this encounter Care Teams Alliances Consultant Relationship Specialty Start Date End Date William Wade PA PCP - General Family Medicine 08/31/[address] [place] [address] [place] [address] documented as of this encounter
--- OUTSIDE RECORDS SUMMARY | 2021-11-07 00:54 | XMS_ITS | Encounter Summary ---
:1955 Author Organization [facility] [place] [address] Care Team Providers Name Role Phone William Wade Primary Care Provider Reason for Referral Consultation (Routine) - Closed Specialty Diagnoses / Procedures Referred By Contact Refer red To Contact Hematology and Oncology Diagnoses Jaundice Humberto Dumont MD [facility] Hem Onc 3k [facility] enter [address] [address] Phone: Fax: Referral ID Status Reason Start Date Expiration Date Visits V isits Requested Authorized [id number] Closed Consult, 10/07/2021 10/07/2022 1 1 Test & Treat Consultation (Routine) - Closed Specialty Diagnoses / Procedures Referred By Contact Refer red To Contact General Surgery Diagnoses Jaundice Humberto Dumont MD [facility] Gen Surgery [address] [place] [address] [place] [address] Phone: Fax: Referral ID Status Reason Start Date Expiration Date Visits V isits Requested Authorized [id number] Closed Consult, 10/07/2021 10/07/2022 1 1 Test & Treat iagnostic Test (Routine) - Closed Specialty Diagnoses / Procedures Referred By Contact Refer red To Contact Radiology Diagnoses Jaundice Humberto Dumont MD [facility] Rad Ct Scan Procedures CT Chest w Contrast [facility] [place] [address] [place] [address] Referral ID Status Reason Start Date Expiration Date Visits V isits Requested Authorized [id number] Closed Specialty 10/07/2021 04/09/2023 1 1 Service Requested Encounter Details Date Type Department Care Team Description 10/07/2021 Orders Only Gastroenterology at [facility] Humberto Dumont MD Jaundice [facility] [place] [address] [place], [place] 0[address] (Wo rk) Social History Tobacco [...] Visit Hematology and Oncology Eric Streeter MD [facility] [address] [place], [place] [address] (Wo rk) 11/07/2021 Infusion Hematology and Oncology 11/07/2021 Office Visit Hematology and Oncology Irena Hinojosa RD [facility] [place] HEMATOLOGY AND O NCOLOGY [place], [place] [address] (Wo rk) 11/21/2021 Office Visit Hematology and Oncology Eric Streeter MD [facility] [address] [place], [place] [address] (Wo rk) 11/21/2021 Infusion Hematology and Oncology 12/05/2021 Office Visit Hematology and Oncology Eric Streeter MD [facility] [address] [place], [place] [address] (Wo rk) 12/05/2021 Infusion Hematology and Oncology 12/19/2021 Office Visit Hematology and Oncology Eric Streeter MD [facility] [address] [place], [place] [address] (Wo rk) 12/19/2021 Infusion Hematology and Oncology Scheduled Referrals Name Type Priority Associated Order Schedule Diagnoses Referral to Surgical Outpatient Referral Routine Jaundice Ordered: Oncology 10/07/2021 Referral to Outpatient Referral Routine Jaundice Ordered: Hematology and 10/07/2021 Oncology documented as of this encounter Results CT Chest w Contrast [...] who have questions please contact the health daycare provider that requested your imaging first. ? Narrative [...] ho have questions please contact the health daycare provider that requested your imaging first. Humberto Dumont MD IMG CT ORDERABLES (ABNORMAL) Hepatic Function Panel (10/14/2021 10:22 AM EDT) Patholo gist Method Time Signature Total Protein 6.9 6.1 - 8.0 [facility] Albumin 2.9 (L) 3.2 - 5.2 [facility] g/dL [facility] AST 161 (H) 0 - 39 [facility] unit/L [facility] ALT 123 (H) 0 - 55 [facility] unit/L [facility] Alk Phos 1,072 (H) 40 - 130 [facility] unit/L [facility] Total 5.2 (H) 0.2 - 1.3 [facility] Bilirubin mg/dL [facility] Bili, Direct 3.5 (H) 0.0 - 0.3 [facility] mg/dL [facility] Specimen Anatomical Collection Method Collection Time Receive d Time (Source) Location / / Volume Laterality Blood 10/14/2021 10:22 10/14/2021 AM EDT 10:27 AM EDT Resulting Agency Comment Spec In Lab Humberto Dumont MD CHEMISTRY ORDERABLES Performing Organization Address City/State/[place] [address] (ABNORMAL) Basic Metabolic Panel (non-fasting) (10/14/2021 10:22 AM EDT) P athologist Signature Glucose Lvl 268 (H) 65 - 199 [facility] mg/dL [facility] Comment: Diabetes: >=200 mg/dL plus symp toms BUN 18 10 - 20 mg/dL [facility] Creatinine 0.74 (L) 0.80 - 1.50 mg/dL [facility] Sodium 133 (L) 135 - 145 mmol/L [facility] Potassium 4.4 3.5 - 5.0 mmol/L [facility] Comment: Please note: ??Patients with WBC >100,00 0 may have falsely elevated Potassium levels. ??For accurate Potassium quantif ication in these patients send serum separator tube (gold top) for subsequent determinations. ??Contact the Clinical Chemistry Laboratory if there are any qu estions. Chloride 98 98 - 107 mmol/L [facility] CO2 23 22 - 31 mmol/L [facility] Anion Gap 12 5 - 15 mmol/L [facility] Calcium 8.7 8.5 - 10.5 mg/dL [facility] Estimated GFR 99 >=60 mL/min/1.73 m?? [facility] Comment: This patient's estimated GFR [...] Organization Address City/State/ZIP Code Phon e Number [address] (ABNORMAL) Carbohydrate Antigen 19-9 (10/14/2021 10:22 AM EDT) P athologist Signature [place] 19-9 >63967.0 <=35.0 [facility] u/ml [facility]ORATORY [...] Organization Address City/State/ZIP Code Phon e Number [address] documented in this encounter Visit Diagnoses Diagnosis Jaundice Jaundice, unspecified, not of Jaundice Jaundice, unspecified, not of Malignant neoplasm of head of pancreas documented in this encounter Care Teams Thai Masseur Relationship Specialty Start Date End Date William Wade PA PCP - General Family Medicine 08/31/[address] [place] [address] [place] [address] documented as of this encounter
--- OUTSIDE RECORDS SUMMARY | 2021-11-07 00:54 | XMS_ITS | Encounter Summary ---
:1955 Author Organization [facility] Address [facility] [place] [address] Care Team Providers Name Role Phone William Wade Primary Care Provider Encounter Details Date Type Department Care Team Description 10/25/2021 Telephone [facility] Nelson cobian HEMATOLOGY/[place] [address] DEPT. [phone] [place] [id number] (Wo rk) Social History Tobacco Use Types [...] this encounter Miscellaneous Notes Telephone Encounter - Simon Handy MD - 10/25/2021 4:16 PM EDT Heme-Onc Staff I have reviewed the patient's record and, given personal and/or family history of cancer he should be seen by a genetic counselor. This is scheduled for next week. Simon Handy MD weight loss consultant in Hematology-Oncology documented in this encounter Plan of Treatment Upcoming Encounters Date Type Specialty Care Team Description 11/07/2021 Office Visit Hematology and Oncology Eirc Streeter MD [facility] [address] [place], [place] [address] (Luz fofana) 11/07/2021 Infusion Hematology and Oncology 11/07/2021 Office Visit Hematology and Oncology Irena Hinojosa RD [facility] DRIVE H[place]OLOGY [place], [place] [address] (Luz fofana) 11/21/2021 Office Visit Hematology and Oncology Eric Streeter MD [facility] [address] [place], [place] [address] (Luz fofana) 11/21/2021 Infusion Hematology and Oncology 12/05/2021 Office Visit Hematology and Oncology Eric Streeter MD [facility] ONCOLOGY [place], [place] [address] (Wo rk) 12/05/2021 Infusion Hematology and Oncology 12/19/2021 Office Visit Hematology and Oncology Eric Streeter MD [facility] ONCOLOGY [place], [place] 0375 (Wo rk) 12/19/2021 Infusion Hematology and Oncology documented as of this encounter Visit Diagnoses Not on filedocumented in this encounter Care Teams Web Retailer Relationship Specialty Start Date End Date William Wade PA PCP - General Family Medicine 08/31/[address] [place] [address] [place] [address] documented as of this encounter
--- OUTSIDE RECORDS SUMMARY | 2021-11-07 00:54 | XMS_ITS | Encounter Summary ---
:1955 Author Organization [facility] Address [facility] [place] [address] Care Team Providers Name Role Phone William Wade Primary Care Provider Reason for Referral Consultation (Routine) - Closed Specialty Diagnoses / Procedures Referred By Contact Refer red To Contact Thoracic Surgery Diagnoses Malignant neoplasm of head of pancreas Lung nodules Lung nodules & Malignant neoplasm of head of pancreas Eric Streeter MD [place], Timothy M, [facility] Nelson Ferreira MD ONCOLOGY [facility] [place] [address] THORACIC SURGERY [place] [phone] Phone: Fax: Referral ID Status Reason Start Date Expiration Date Visits V isits Requested Authorized [id number] Closed Consult, 10/22/2021 10/22/2022 1 1 Test & Treat Encounter Details Date Type Department Care Team Description 10/22/2021 Orders Only Hematology and Eric Streeter, Maligna nt neoplasm of head of pancreas; Oncology at [facility] MD Lung nodules [facility] [place] [address] ONCOLOGY [phone] [place] [id number] Social History Tobacco Use Types Packs/Day Years [...] Visit Hematology and Oncology Eric Streeter MD [facility] DR ONCOLOGY [place], [place] [address] (Wo rk) 11/07/2021 Infusion Hematology and Oncology 11/07/2021 Office Visit Hematology and Oncology Irena Hinojosa RD [facility] HEMATOLOGY AND O NCOLOGY [place], [place] 0[address] (Wo rk) 11/21/2021 Office Visit Hematology and Oncology Eric Streeter MD [facility] ER ONCOLOGY [place], [place] 0[address] (Wo rk) 11/21/2021 Infusion Hematology and Oncology 12/05/2021 Office Visit Hematology and Oncology Eric Streeter MD [facility] ER ONCOLOGY [place], [place] [address] (Wo rk) 12/05/2021 Infusion Hematology and Oncology 12/19/2021 Office Visit Hematology and Oncology Eric Streeter MD [facility] ONCOLOGY [place], [place] [address] (Wo rk) 12/19/2021 Infusion Hematology and Oncology Scheduled Referrals Name Type Priority Associated Diagnoses Order S chedule Amb Ref To Outpatient Referral Routine Malignant neoplasm Or dered: Thoracic Surgery of head of panc reas 10/22/2021 Lung nodules documented as of this encounter Visit Diagnoses Diagnosis Malignant neoplasm of head of pancreas Lung nodules Other nonspecific abnormal finding of moe ng field Malignant neoplasm of head of pancreas documented in this encounter Care Teams Stock Drier Tender Relationship Specialty Start Date End Date William Wade PA PCP - General Family Medicine 08/31/[address] [place] [address] [place] [address] documented as of this encounter
--- OUTSIDE RECORDS SUMMARY | 2021-11-07 00:54 | XMS_ITS | Encounter Summary ---
:1955 Author Organization [facility] [place] [address] Care Team Providers Name Role Phone William Wade Primary Care Provider Reason for Referral Diagnostic Test (Emergency) - Closed Specialty Diagnoses / Procedures Referred By Contact Refer red To Contact Cardiology Diagnoses Pre-operative cardiovascular examination, high risk surgery Malignant neoplasm of head of pancreas Multiple pulmonary nodules Reyes Hilton, [facility] Non-Inv Card Lab Procedures Echocardiogram Transthoracic MD [facility] [place] [address] [place] [address] Referral ID Status Reason Start Date Expiration Date Visits V isits Requested Authorized [id number] Closed Specialty 10/27/2021 10/27/2022 1 1 Service Requested Reason for Visit Reason Comments Advice Only Auth/Cert Specialty Diagnoses / Procedures Referred By Contact Refer red To Contact Diagnoses 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d loss (chronic) Melena anemia melena Reyes Avilez MD [facility] Procedures PRO UPPER GI ENDOSCOPY, DIAGNOSTIC PRO UPPER GI ENDOSCOPY, BIOPSY PRO UP GI ENDOSCOPY, REMV TUMOR, SNARE PRO ANESTH, UGI ENDOSCOPY NOS EGD, UPPER GI ENDOSCOPY [facility] [place] [place] [address] Referral ID Status Reason Start Date Expiration Date Visits Requ ested Visits Authorized [id number] 1 1 Encounter Details Date Type Department Care Team Description 10/27/2021 Office Visit Thoracic Surgery at [place], Pre-oper ative cardiovascular examination, high risk surgery; [facility] Reyes Page MD Malignant neoplasm of head of pancreas; [facility] Multiple pulmonary nodules [facility] [address], [place] THORACIC SURGERY [address] [place] [address] [phone] Social History Tobacco Use Types Packs/Day Years [...] Sign Reading Time Taken Comments Blood Pressure 116/52 10/27/2021 11:48 AM EDT Pulse 67 10/27/2021 11:48 AM EDT Temperature 36.7 ??C (98.1 ??F) 10/27/2021 11:48 AM EDT Respiratory Rate 18 10/27/2021 11:48 AM EDT Oxygen Saturation 100% 10/27/2021 11:48 AM EDT Inhaled Oxygen Concentration - - Weight 50.5 kg (111 lb 6.4 oz) 10/27/2021 11:48 AM EDT Height 162.6 cm (5' 4) 10/27/2021 11:48 AM EDT Body Mass Index 19.12 10/27/2021 11:48 AM EDT documented in this encounter Patient Instructions Patient InstructionsEvelia Worley RN - 10/27/2021 11:45 AM EDT Thank you for seeing Dr. Thapa in clinic 10/27/21 Dr. Thapa would like you to have a wedge resection of your Lung done. Before this procedure you will need Labs, EKG, Echocardiogram and pulmonary function testing completed. The Thoracic Surgery Joint Finisher will contact you to set up these appointments. Your procedure is scheduled for 10/31/2021. You will receive a phone call from the OR nurses on 10/30/2021 after 2pm through 6 pm. They will confirm your arrival time, review what medications to take andwhen to stop eating and drinking. Your procedure will occur in medical receptionist biller area 4W. Please park in the parking garage and you will come into the medical center on level 4. Go straight, all the way to theend of the [place], that is Same day surgery wooden desk also medical receptionist biller area 4W. Bronchoscopy is the term for a procedure in which a scope (thin tube with a light source on the end), is placed through your mouth or nose and into your trachea and large airways. A small amount of tissue from the surface of the area is removed. The removal of the tissue is called a biopsy. A wedge is the removal of a small part of the lobe of the lung. A video-assisted thoracoscopic surgery, or VATS, involves a range of technologies to enable the removal of tissue through several small cuts in the chest. A tiny camera, light supply and surgical tools are inserted in the incisions and through the body to the surgical site. In RVATS or robot-assisted video-assisted thoracic surgery, the surgeon controls the camera, light source and surgical tools from a console, with the same degree of flexibility and dexterity as if they were held in the surgeon's hand. The tiny size of the instruments and the precision movement of the robotic arms allow the surgeon to operate in small and [id number] places in the chest cavity, and to move carefully around sensitive blood vessels, tissues and organs, enabling more difficult procedures to be performed with RVATS versus open surgery. Before your Surgery: PLEASE WASH WITH EITHER DIAL SOAP or the HIBICLENS SOAP included in this package. Please wash your chest, sides and back. You may shower either the night before or the morning of surgery and please place clean clothes on after your shower. Exercise: Daily aerobic exercise for at least 30 minutes will help improve your endurance and improve the breathing capacity of your lungs. This means that you are breathing hard, your heart is beating fast and that you are sweating. Examples of this include walking, biking, swimming, and using a treadmill or stationary bike. You will be expected to exercise after surgery as well. Incentive Spirometer: Place the Incentive spirometer in your mouth when you are ready to take a slow deep breath in through your mouth (sucking motion, DO NOT BLOW into the device). Use your incentive spirometer as you were shown in clinic: 6 times daily/10 breaths each time (totalof at least 60 times in a day). It is a sucking motion when you take a slow deep breath in, DO NOT BLOW INTO THIS MACHINE You may also bundle the use of the incentive spirometer as well - 30 breaths in the morning and 30 breaths at night. Please keep your incentive spirometer near your favorite chair so that in between commercials you can remember to use it! Take a slow, deep breath in through your mouth. While the piston rises, the indicator on the right should move upwards. It should stay between the 2 arrows for 2 to 4 seconds with each breath. If the indicator does not stay between the arrows, you are breathing either too fast or too slowly. The incentive spirometer will help you expand your lungs and encourage you to breathe deeply and fully. You will use the incentive spirometer as part of your recovery process and to prevent complications such as pneumonia. Some things to expect during your surgery and while you are in the hospital: You will have a chest tube placed while you are in surgery. A Chest tube is a flexible tube that is used to drain blood, fluid and air from around your lungs after surgery. The tube enters your body between your ribs and goes into the space where the piece of lung was removed. The chest tube will comeout a day after surgery, if there is no air leak in your lung. If there is an air leak, the chest tube will stay in until it stops. The nurse and doctor will be watching for the air leak to clear up regularly throughout the day. Post Surgery Instructions at home for bowel regimen: Bowel regimen while at home. Please obtain senna (Senokot) tablets, colace tablets, and Miralax powder. You will need to take senna once a day, colace three times a day and miralax once a day to keep yourbowels moving. If you do not have a bowel movement in 2 days you will need to call the office as youwill need to obtain either Milk of Magnesia (MOM), Magnesium Citrate, a Fleet's enema or glycerin suppositories. If you are having diarrhea, then you may back off on the bowel medications. If you are taking narcotics, you need to continue the bowel medications while you are taking the narcotics. Post Surgery Instructions at home for pain medication: Example of what you will be taking for pain control after your surgery. Please make sure that you have Extra strength Tylenol (acetaminophen) and Motrin (ibuprofen) at homebefore you are discharged Extra strength acetaminophen 1000 mg alternate with ibuprofen 200 mg (2-3 tabs) every 3 hours or take both medications together every 6 hours: ex. Schedule - Extra strength acetaminophen 1000 mg at 8am, Ibuprofen 200 mg (2-3 tabs) at 11 am, then Extra strength acetaminophen 1000 mg at 2 pm, then ibuprofen 200 mg (2- 3 tabs) at 5 pm. Do not exceed more than 4000 mg of Extra strength acetaminophen in 24hour period. Dr. Thapa s team will see you twice per day while you are in the hospital. Two weeks after you leave the hospital, you will be scheduled to see Dr. Thapa in his clinic and will also have a chest x-ray before you see him on this day. Please call the Thoracic Surgery nurse if you have any questions before or after your surgery at . documented in this encounter Progress Notes Reyes Hilton MD - 10/27/2021 11:45 AM EDT THORACIC SURGERY NEW PATIENT EVALUATION I reviewed this case with the physician assistant financial accountant LIBRADO Dawkins, but did not personally evaluate the patient due to unexpectedly needing to quarantine for COVID-19 infection. In brief, this 66-year-old man has a history of pancreatic adenocarcinoma and was discovered during his staging work-up to have multiple bilateral lung nodules. He was referred to me for an expedited new patient encounter,and we assessed him for possible thoracoscopic wedge biopsies. Due to his previous myocardial infarction and tobacco use history, I recommended PFTs and a TTE prior to likely right thoracoscopic wedge resection. Plan: PFTs, TTE, smoking cessation, likely thoracoscopic right wedge resections REYES HILTON MD documented in this encounter H&P Notes Remigio Coughlin PA - 10/27/2021 11:45 AM EDT Thoracic Surgery Outpatient Consultation Note MD Remigio Hurley PA-C [place] [address] Date of Consultation: 10/27/2021 This consultation has been requested by PCP: LIBRADO Mcclendon Referring Provider: Eric Streeter MD Purpose for Consultation: Multiple bilateral lung nodules in the setting of pancreatic adenocarcinoma HPI: John Duarte is a 66 y.o. [...] demonstrated adenocarcinoma. Patient was then seen by [facility] Surgical Oncology and Dr. Stevens performed laparoscopy and Mediport placement on 10/17/2021. Patient reports he has been recovering well from this. Patient was then seen by Dr. Streeter who obtained CT Chest on 10/21/2021 which demonstrated bilateral sub-6 mm solid nodules concerning for possible metastatic disease. Patient was then referred to [facility] Thoracic Surgery for further evaluation. Patient is a current smoker of about 1/2 ppd, reports he has been working on [employer], previously smoked about 1 ppd for about 27 years (estimate 27 pack year smoking history. Denies ETOH / illicitdrug use. He reports he is able to walk without limitation on the flat and up 1-2 flights of stairs without stopping. 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 He reports weight loss of about 20 [...] DIAGNOSTIC performed by Sergey Cook MD at [facility] ??? PRO ENDOSCOPIC US EXAM, ESOPH N/A 06/19/2021 UPPER EUS- ENDOSCOPIC ULTRASOUND performed by Gabriel Hilario MD at [facility] ENDOSCOPY ??? PRO ENDOSCOPIC US EXAM, ESOPH N/A 10/07/2021 UPPER EUS- ENDOSCOPIC ULTRASOUND performed by Humberto Dumont MD at [facility] ENDOSCOPY ??? PRO ERCP BALLOON DILATATION BILIARY/PANCREATIC DUCT OR AMPULLA EA DUCT 10/07/2021 ERCP, W BALLOON DILATION OF BILIARY/PANCREATIC DUCT performed by Humberto Dumont MD at [facility] ENDOSCOPY ??? PRO ERCP STENT PLACEMENT BILIARY OR PANCREATIC DUCT 10/07/2021 ERCP, W PLCMNT ENDOSCOPIC STENT BILIARY OR PANCREATIC DUCT performed by Humberto Dumont MD at [facility] ENDOSCOPY ??? PRO ERCP, SPHINCTEROTOMY N/A 10/07/2021 ERCP W/SPHINCTEROTOMY/PAPILLOTOMY performed by Humberto Dumont MD at [facility] ENDOSCOPY ??? PRO FINE NEEDLE ASPIRATION BX W/US GDN 1ST LESION 10/07/2021 FINE NEEDLE ASPIRATION BIOPSY, INC US GUIDANCE; FIRST LESION performed by Humberto Dumont MD at [facility] END[facility] ??? PRO INSERT TUNNELED CV CATH W SUBQ PORT, AGE 5 YRS OR OLDER N/A 10/17/2021 NAKITA\SILVIA.CATHETER,TUNNELED, WITH SQ PORT OR PUMP OVER 5YR (WRVU 6.04) performed by Jordan Stevens MD at [facility] ??? PRO LAP, DX SURGICAL ABD W/BIOPSY N/A 10/17/2021 LAPAROSCOPY,SURGICAL,WITH BIOPSY, SINGLE OR MULTIPLE (WRVU 5.44) performed by Scooby Stevens MD at [facility] ??? PRO UPGI ENDOSCOPY W/US FN BX 10/07/2021 EGD, W US GUIDED FINE NEEDLE ASPIRATION/BIOPSY performed by Humberto Dumont MD at [facility] END[facility] Medications: Outpatient Medications Marked as Taking for the 10/27/21 encounter (Office Visit) with Reyes Hilton MD Medication Sig Dispense Refill ??? metoprolol succinate XL (Toprol-XL) 25 mg [...] 0 Allergies: No Known Allergies Family History: No family history on file. Social History: Social History Socioeconomic History ??? [...] the Last Year: No Review of Systems: Pertinent positives as documented per HPI. Patient denies stroke/TIA/DVT/PE, problems with bleeding/anesthesia, fevers, chills, sweats, fatigue, headaches, dizziness, lightheadedness, changes in visionor hearing, chest pain, palpitations, orthopnea, cough, productive cough, hemoptysis, SOB, dyspnea, PEREZ, pleurisy, wheezing, sore throat, dysphagia, odynophagia, nausea, vomiting, hematemesis, abdominal pain, constipation, diarrhea, BRBPR, melena, paresthesias, cyanosis, edema. Physical Exam: BP 116/52 (Patient Position: Sitting) Pulse 67 Temp 36.7 ??C (98.1 ??F) (Temporal) Resp 18 Ht 162.6 cm (5' 4) Wt 50.5 kg (111 lb 6.4 oz) SpO2 100% BMI 19.12 kg/m?? General Appearance: Alert, cooperative, no distress, appears stated age, [id number] jaundice appreciated HEENT: PERRL, MMM, mild scleral icterus appreciated Neck: Supple, symmetrical, trachea midline, no adenopathy appreciated Lungs: Clear to auscultation bilat, no wheezes, crackles or ronchi, non-labored breathing on RA Heart: Regular rate and rhythm, II-III/ systolic murmur appreciated Abdomen: Soft, thin, non-tender, non-distended, BS+, abdominal and mediport incisions c/d/i with dermabond Extremities: Extremities normal, no cyanosis, clubbing or edema Neurologic: A+Ox3, cranial nerves II-XII grossly intact Musculoskeletal: 5/5 throughout with normal gait Diagnostics: I have independently visualized all relevant imaging studies, including: CT Chest (10/21/2021): 1. Bilateral sub-6 mm solid nodules. These are indeterminant; while small nodules noted this size are statistically of a post infectious or inflammatory process, in the setting of a primary malignancy, metastatic disease cannot be excluded. If there are CT examinations available prior to 06/07/2021, comparison could be made to evaluate for stability. 2. No lymphadenopathy. 3. New partially visualized perihepatic ascites. CT Abd (09/30/2021): 1. New intra and extrahepatic biliary dilation [...] aortic aneurysm similar appearance to 06/07/2021 CT. Pathology (10/21/2021): Ascites: Rare atypical cells with immunoreactivity for monoclonal CEA are noted, cannot ??exclude malignancy/metastatic adenocarcinoma. Mesothelial cells, and mixed leukocytes are also seen. (10/07/2021): Pancreas, head (EUS-guided FNA): Adenocarcinoma. Cell block was examined. Assessment: John Duarte is a 66 y.o. male with PMHx significant for pancreatic adenocarcinoma, DM, NSTEMI (about 10 years ago, s/p stent, on ASA), HTN and HLD, now with multiple bilateral lung nodules concerning for possible metastatic process. Plan of Management: 1. Will obtain PFTs to assess baseline lung function 2. Will obtain TTE to assess cardiac function - reports it has been several years since he has had one performed 3. Will obtain repeat labs (CBC and CMP) and EKG prior to surgery 4. Continue to cut back on smoking with goal of quitting completely, patient should touch base with the Thoracic Surgery Clinic if he would like any assistance with this 5. Pending timing and results of the above, will plan to proceed with bronchoscopy and Right VATS wedge resection(s) for biopsy 6. Follow up with other providers as scheduled 7. Recommend minimum of 30 minutes of exercise daily 8. Please call with any questions or concerns at any time All plans formulated in discussion with Dr. Hilton. LIBRADO Schmitz 10/27/2021 Thoracic Surgery [facility] documented in this encounter Plan of Treatment Upcoming Encounters Date Type Specialty Care Team Description 11/07/2021 Office Visit Hematology and Oncology Eric Streeter MD [facility] [address] [place], [place] [address] (Wo rk) 11/07/2021 Infusion Hematology and Oncology 11/07/2021 Office Visit Hematology and Oncology Irena Hinojosa RD [facility] [place] [address] (Wo rk) 11/21/2021 Office Visit Hematology and Oncology Eric Streeter MD [facility] [address] [place], [place] [address] (Wo rk) 11/21/2021 Infusion Hematology and Oncology 12/05/2021 Office Visit Hematology and Oncology Eric Streeter MD [facility] [address] [place], [place] [address] (Wo rk) 12/05/2021 Infusion Hematology and Oncology 12/19/2021 Office Visit Hematology and Oncology Eric Streeter MD [facility] ON[facility] [place], [place] [address] (Luz fofana) 12/19/2021 Infusion Hematology and Oncology Scheduled Orders Name Type Priority Associated Diagnoses Order S chedule CBC (with Diff) Lab Routine Malignant neoplasm of hea d Expected: of pancreas 10/27/2021, Expires: Multiple pulmonary nodules 1 03/27/2021 Comprehensive metabolic Lab Routine Malignant neoplas m of head Expected: panel (non-fasting) of pancreas 10/27/2021, Expires: Multiple pulmonary nodules 1 03/27/2021 EKG 12 Lead ECG Routine Pre-operative Expected: cardiovascular 10/27/2021, E xpires: examination, high risk 04/28 surgery Malignant neoplasm of head of pancreas Multiple pulmonary nodules documented as of this encounter Results ECHOCARDIOGRAM COMPLETE (10/30/2021 1:36 [...] 1955 ? Height: 163 cm ? Account: [id number] Age: 66 yrs ? Weight: 51 kg Gender: Male ?BSA: 1.5 m2 Ordering Physician: REYES HILTON Referring Physician: REYES HILTON Performed By: JEAN MARIE Oseguera Reason For Study: Pre Op Exam Location: [facility]. Interpretation Summary 1. The left ventricle is normal in [facility] er size and wall thickness. Global LV [...] No prior study available for comparison. Procedure Complete-65415. 3D - 81824. Left ventric ular strain - 0399T. Satisfactory [...] 10/30 12:35 PMBP: 146/54 mmHg Patient Location: [address] [place] [address] : 1955 Height: 163 cm Account: [id number] Age: 66 yrs Weight: 51 kg Gender: Male BSA: 1.5 m2 Ordering Physician: REYES HILTON Referring Physician: REYES HILTON Performed By: JEAN MARIE Oseguera Reason For Study: Pre Op Exam Location: [facility]. Interpretation Summary 1. The left ventricle [...] No prior study available for comparison. Procedure Complete-42214. 3D - 60888. Left ventric ular strain - 0399T. Satisfactory [...] - 6-14 large Aneurysmal 15-16 diffuse Reyes Hilton MD ECHO ORDERABLES Performing Organization Address City/State/ZIP [...] / FVC LLN 64 % COMPAS PFT [id number] Actual 0.87 L/s COMPAS PFT Pre-BD IUL27-03 Pre-BD 39 % COMPAS PFT % of Predicted [id number] 2.23 L/s COMPAS PFT Predicted [id number] Pre-BD -1.88 COMPAS PFT Z-Score DLCO Hb [...] diffusing capacity, suggestive of emp hysema. Reyes Hilton MD PFT ORDERABLES Performing Organization Address City/State/ZIP Code Phon e Number COMPAS PFT documented in this encounter Visit Diagnoses Diagnosis Pre-operative cardiovascular examination , high risk surgery Pre-operative cardiovascular examination Malignant neoplasm of head of pancreas Multiple pulmonary nodules Other nonspecific abnormal finding of moe ng field Malignant neoplasm of head of pancreas Multiple pulmonary nodules Other nonspecific abnormal finding of moe ng field Pre-operative cardiovascular examination , high risk surgery Pre-operative cardiovascular examination Malignant neoplasm of head of pancreas Multiple pulmonary nodules Other nonspecific abnormal finding of moe ng field Malignant neoplasm of head of pancreas documented in this encounter Care Teams Insurance Writer Relationship Specialty Start Date End Date William Wade PA PCP - General Family Medicine 08/31/[address] [place] [address] [place] [address] documented as of this encounter
--- OUTSIDE RECORDS SUMMARY | 2021-11-07 00:54 | XMS_ITS | Encounter Summary ---
:1955 Author Organization [facility] [place] [address] Care Team Providers Name Role Phone William Wade Primary Care Provider Reason for Referral Consultation (Emergency) - Closed Specialty Diagnoses / Procedures Referred By Contact Refer red To Contact Hematology and Diagnoses Jaundice Scooby Stevens Morig, Stacy A, DONNIE Oncology [facility] [address] [place] [address] Referral ID Status Reason Start Date Expiration Visits Visits Date Requested Authorized [id number] Closed Continuity of 10/08/2021 10/08/2022 1 1 Care Encounter Details Date Type Department Care Team Description 10/08/2021 Orders Only General Surgery at Scooby Stevens J aundice (Primary Dx) [facility] [address] [place], [place] GENERAL SURGERY [id number] [place] [address] [phone] (Wo rk) Social History Tobacco Use Types [...] place to sleep or slept in a chcf (including now)? Sex Assigned at Date Recorded Not on file documented as of this encounter Plan of Treatment Upcoming Encounters Date Type Specialty Care Team Description 11/07/2021 Office Visit Hematology and Oncology Eric Streeter MD [facility] [address] [place], [place] [address] (Wo rk) 11/07/2021 Infusion Hematology and Oncology 11/07/2021 Office Visit Hematology and Oncology Irena Hinojosa RD [facility] AND O NCOLOGY [place], [place] [address] (Wo rk) 11/21/2021 Office Visit Hematology and Oncology Eric Streeter MD [facility] [address] [place], [place] [address] (Wo rk) 11/21/2021 Infusion Hematology and Oncology 12/05/2021 Office Visit Hematology and Oncology Eric Streeter MD [facility] ON[facility] [place], [place] [address] (Wo rk) 12/05/2021 Infusion Hematology and Oncology 12/19/2021 Office Visit Hematology and Oncology Eric Streeter MD [facility] ON[facility] [place], [place] [address] (Wo rk) 12/19/2021 Infusion Hematology and Oncology Scheduled Referrals Name Type Priority Associated Diagnoses Order S chedule Referral to Outpatient Referral STAT Jaundice Ordered: Nutrition Services 2 documented as of this encounter Visit Diagnoses Diagnosis Jaundice - Primary Jaundice, unspecified, not of Malignant neoplasm of head of pancreas documented in this encounter Care Teams Bread Supervisor Relationship Specialty Start Date End Date William Wade PA PCP - General Family Medicine 08/31/[address] [place] [address] [place] [address] documented as of this encounter
--- OUTSIDE RECORDS SUMMARY | 2021-11-07 00:54 | XMS_ITS | Encounter Summary ---
:1955 Author [place] [address] Care Team Providers Name Role Phone William Wade Primary Care Provider Reason for Visit Reason Comments Establish Care Consultation (Routine) - Closed Specialty Diagnoses / Procedures Referred By Contact Refer red To Contact General Surgery Diagnoses Jaundice Humberto Dumont MD [facility] [place] Gen Surgery 4l [facility] [place] [address] [place] [address] Phone: Fax: Referral ID Status Reason Start Date Expiration Date Visits V isits Requested Authorized [id number] Closed Consult, 10/07/2021 10/07/2022 1 1 Test & Treat Encounter Details Date Type Department Care Team Description 10/14/2021 Office Visit General Surgery at [facility] align[facility] neoplasm of [facility] head of pancreas Formerly [facility] [place], [place] GENERAL SURGERY [id number] [place] [address] [phone] (Wo rk) Social History Tobacco Use Types [...] Sign Reading Time Taken Comments Blood Pressure 140/50 10/14/2021 8:21 AM EDT Pulse 73 10/14/2021 8:21 AM EDT Temperature 36.3 ??C (97.3 ??F) 10/14/2021 8:21 AM EDT Respiratory Rate 16 10/14/2021 8:21 AM EDT Oxygen Saturation 100% 10/14/2021 8:21 AM EDT Inhaled Oxygen Concentration - - Weight 53.1 kg (117 lb) 10/14/2021 8:21 AM EDT Height 165.1 cm (5' 5) 10/14/2021 8:21 AM EDT Body Mass Index 19.47 10/14/2021 8:21 AM EDT documented in this encounter Progress Notes Scooby Stevens MD - 10/14/2021 8:30 AM EDT Surgical Oncology Consultation Note Date: 10/14/2021 Primary physician: LIBRADO Mcclendon Referring physician: Víctor Dumont MD Reason for evaluation: History of the present illness: Mr. Duarte is a 66 year old man from [place], [place]. his past medical history is notable for prior history of heart attack 10 years ago status post PCI with stent maintained on aspirin. He also has hyperlipidemia and hypertension and was diagnosed with diabetes about 3 months ago and is taking Lantus. He presented with abdominal pain and underwent the work-up described below. 06/19/[address] Dumont-reviewed below: Impression: ??LA Grade B reflux esophagitis with no bleeding, likely reflux related. Two benign appearing 5-6 mm cystic lesions were seen in the??pancreatic body and pancreatic tail associated with mild diffuse pancreatic ductal dilation and parenchymal changes that may reflect mild chronic pancreatitis vs age related change. The small cysts may represent branch duct intraductal papillary mucinous neoplasms but have low risk features. Inflamed, possible prolapsing duodenal fold. 09/30/2021 CT abdomen pelvis-radiographic report reviewed below: IMPRESSION 1. New intra and extrahepatic biliary [...] aortic aneurysm similar appearance to 06/07/2021 CT. 10/07/[address] Dumont-reviewed below: A round, hypoechoic, 20 x 19 mm mass with poorly defined borders was identified in the pancreatic head. The endosonographic appearance of parenchyma and the upstream pancreatic duct indicated duct dilation. Fine needle biopsy was performed. Four passes were made with the 22 gauge ultrasound biopsy needle using a transduodenal approach. A visible core of tissue was obtained. The cellularity of the specimen was adequate. Final cytology results are pending. There was dilation in the common bile duct which measured up to 13 mm. 10/07/2021 EUS FNA cytopathology of pancreatic head mass per Acc# [id number] showed positive formalignancy, adenocarcinoma. Today: 10/14/2021 surgical oncology consult. He presented to [facility] with abdominal pain and abnormal LFTs and underwent the work-up described above. He reports that he currently does nothave really any abdominal pain-that subsided. His jaundice symptoms are also subsiding-his urine is no longer dark though he still has some yellowing in his eyes. He has a history of diabetes and was diagnosed with insulin about 3 months ago taking 10 units daily. He says that he has 1 bowel movement per day and no symptoms are significant diarrhea. Past Medical History: 1. Recently diagnosed pancreatic head cancer as above 2. History of IN-12 years ago status post PCI with stent at [facility] maintained on aspirin 3. Hyperlipidemia 4. Newly diagnosed diabetes taking insulin as above Past Surgical History: None Review of systems: A comprehensive ROS questionnaire (scanned into eDH) was completed by the patient- pertinent surgical related findings are summarized below. All other systems on the questionnaire were reviewed and were negative. [facility] 12 years ago and underwent stent placement and has been essentially asymptomatic since with no angina or dyspnea. No prior history of blood clots. Prior to this most recent episode of pancreatitis no prior pancreatitis. No prior history of jaundice with the exception of the history above. 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 He lives alone and has many family but they all live in [place]. He does not smoke or drink. Family History: He has 4 brothers 1 sister, 1 son and 2 daughters. His mother at the age of 82 from blood clots and his father at the age of 71 from some type of GI cancer. Medications: ??? metoprolol succinate XL (Toprol-XL) 25 mg Tablet Sustained Release 24 hr ??? acetaminophen (Tylenol) 500 mg Tablet ??? ibuprofen (Advil;Motrin) 200 mg Tablet ??? tamsulosin (Flomax) 0.4 mg Capsule ??? losartan (Cozaar) 25 mg Tablet ??? aspirin EC 81 mg Tablet, Delayed Release (E.C.) ??? atorvastatin (LIPITOR) 80 mg Tablet ??? metFORMIN (GLUCOPHAGE) 850 mg Tablet ??? nitroGLYcerin (NITROSTAT) 0.4 mg SL tablet Allergies: No Known Allergies Physical Examination: Vital signs: Blood pressure 140/50, pulse 73, temperature 36.3 ??C (97.3 ??F), resp. rate 16, dldxeh201.1 cm (5' 5), weight 53.1 kg (117 lb), SpO2 100 %. 10/14/2021 he weighed 117 pounds. His normal weight was 130 pounds. General: He is thin but otherwise well-appearing he can ambulate on the exam table without any difficulty. He is here today by himself. Skin: No jaundice, lesions or masses noted. HEENT: Sclera is still mildly icteric Chest: Clear to auscultation bilaterally on posterior chest willis. Heart: RRR with no murmurs appreciated. Abdomen: Soft, nondistended and nontender with no surgical scars or palpable masses Extremity exam: No peripheral edema bilaterally. DP palpable bilaterally. Assessment and plans: Mr. Duarte is a 66 year old man from [place], [place]. his past medical history is notable for prior history of heart attack 10 years ago status post PCI with stent maintained on aspirin. He also has hyperlipidemia and hypertension and was diagnosed with diabetes about 3 months ago and is taking Lantus. He presented with abdominal pain and underwent the work-up described above. At today's visit he still has some scleral icterus but he says that his urine has cleared up. He underwent ERCP x3 as above per Dr. Dumont so hopefully his jaundice symptoms have been palliated. Despitehis prior history of IN status post stent he really is quite robust with no cardiopulmonary symptoms. He was diagnosed with diabetes 3 months ago and is now taking Lantus. We discussed the diagnosis of localized pancreatic cancer and his stage of resectability which is the best stage II BN which is resectable. The tumor appears to abut the lateral aspect over the portal vein but it is definitely less 180 degrees with no arterial involvement. Dr. Dumont presented this case to the GI tumor board this morning and we reviewed all this as well as his biopsy. At this point it is unclear I explained whether to sequence his treatments with surgery first which would be the Whipple surgery followed by chemotherapy versus an approach where we would give chemotherapy first for 4 months and then Whipple surgery and then possibly chemotherapy after the Whipple surgery. We do not know how he is an individual will respond to treatment. He will go down today for blood work with CA 19-9 though I suspect he may still have a little bit of residual jaundice. He is scheduled to see Dr. Streeter next week. I recommended that we proceed with laparoscopy and Mediport placement and we discussed the rationale for the laparoscopy as a staging procedure. If his jaundice symptoms persist he may not have an option for chemotherapy first in which case we would need to go to upfront surgery with the Whipple surgery so it will be important to trend his LFTs and make sure they aredowntrending. Time Spent With Patient: 60 minutes of this 65 minute visit were spent in [id number] discussion and counseling the patient as detailed above. documented in this encounter Plan of Treatment Upcoming Encounters Date Type Specialty Care Team Description 11/07/2021 Office Visit Hematology and Oncology Eric Streeter MD [facility] [address] [place], [place] [address] (Wo rk) 11/07/2021 Infusion Hematology and Oncology 11/07/2021 Office Visit Hematology and Oncology Irena Hinojosa RD [facility] DRIVE [place] [address] (Wo rk) 11/21/2021 Office Visit Hematology and Oncology Eric Streeter MD [facility] [address] [place], [place] [address] (Wo rk) 11/21/2021 Infusion Hematology and Oncology 12/05/2021 Office Visit Hematology and Oncology Eric Streeter MD [facility] [address] [place], [place] [address] (Wo rk) 12/05/2021 Infusion Hematology and Oncology 12/19/2021 Office Visit Hematology and Oncology Eric Streeter MD [facility] [address] [place], [place] [address] (Wo rk) 12/19/2021 Infusion Hematology and Oncology Scheduled Referrals Name Type Priority Associated Diagnoses Order S chedule Referral to Outpatient Referral Routine Jaundice Ordered: Surgical Oncology 10/07/2021 documented as of this encounter Visit Diagnoses Diagnosis Malignant neoplasm of head of pancreas Malignant neoplasm of head of pancreas documented in this encounter Care Teams Manager Universal Relationship Specialty Start Date End Date William Wade PA PCP - General Family Medicine 08/31/[address] [place] [address] [place] [address] documented as of this encounter
--- OUTSIDE RECORDS SUMMARY | 2021-11-07 00:54 | XMS_ITS | Encounter Summary ---
:1955 Author Organization [facility] [place] [address] Care Team Providers Name Role Phone William Wade Primary Care Provider Encounter Details Date Type Department Care Team Description 10/08/2021 Telephone General Surgery at [facility] Charlotte Chavez [facility] [place] [address] Social History Tobacco Use Types Packs/Day [...] this encounter Miscellaneous Notes Telephone Encounter - Charlotte Chavez - 10/08/2021 9:28 AM EDT I called Jeff to schedule him for Pancreas Tumor Clinic appointments per referrals from Dr Dumont. Jeff didn't remember Dr Dumont talking with him about the consultations and would like to wait untilDr Dumont calls him with the pathology report prior to scheduling. documented in this encounter Plan of Treatment Upcoming Encounters Date Type Specialty Care Team Description 11/07/2021 Office Visit Hematology and Oncology Eric Streeter MD [facility] [address] [place], [place] [address] (Wo rk) 11/07/2021 Infusion Hematology and Oncology 11/07/2021 Office Visit Hematology and Oncology Irena Hinojosa RD [facility] [place] [address] (Wo rk) 11/21/2021 Office Visit Hematology and Oncology Eric Streeter MD [facility] [address] [place], [place] [address] (Wo rk) 11/21/2021 Infusion Hematology and Oncology 12/05/2021 Office Visit Hematology and Oncology Eric Streeter MD [facility] [address] [place], [place] [address] (Wo rk) 12/05/2021 Infusion Hematology and Oncology 12/19/2021 Office Visit Hematology and Oncology Eric Streeter MD [facility] ONCOLOGY [place], [place] [address] (Wo rk) 12/19/2021 Infusion Hematology and Oncology documented as of this encounter Visit Diagnoses Not on filedocumented in this encounter Care Teams Log Sorting Supervisor Relationship Specialty Start Date End Date William Wade PA PCP - General Family Medicine 08/31/[address] [place] [address] [place] [id number] documented as of this encounter
--- OUTSIDE RECORDS SUMMARY | 2021-11-07 00:54 | XMS_ITS | Encounter Summary ---
:1955 Author Organization [place] [address] Care Team Providers Name Role Phone William Wade Primary Care Provider Reason for Visit Auth/Cert Specialty Diagnoses / Procedures Referred By Contact Refer red To Contact Diagnoses Mass of pancreas Jaundice Pancreas mass/jaundice Humberto Dumont MD [facility] Procedures PRO ERCP,DIAGNOSTIC PRO ENDOSCOPIC US EXAM, ESOPH PRO ANESTH, UGI ENDOSCOPY ERCP PRO ANESTH, COMBINED UPPER OR LOWER ENDOSCOPY ERCP UPPER EUS- ENDOSCOPIC ULTRASOUND [facility] [address] [place] [id number] Referral ID Status Reason Start Date Expiration Date Visits Requ ested Visits Authorized [id number] 1 1 Encounter Details Date Type Department Care Team Description 10/07/2021 Anesthesia Event Gastroenterology at [facility] Theresa Wang MD [facility] [place] [address] [facility] Vandana Baird CRNA [facility] [place] [address] [place] [address] Anesthesia Record Procedure Summary Procedure Name Responsible Anesthesia Start Anesthesia Stop Time Anesthesiologist Time ERCP Theresa Wang MD 10/07/21 0948 10/07/21 1241 W/SPHINCTEROTOMY/PA PILLOTOMY (N/A Trunk) Events Date Time Event Comment 10/07/2021 0948 AN Verify 0948 Start 0948 An Start Data 0950 0955 An Induction 0958 An Intubation 1000 Anesthesia Ready 1013 Procedure Start 1123 Break/Relief In I assumed care f or Break Relief before which we: 1. Identifie d the patient 2. Identified the responsible provider(s) 3. Reviewed the pertinent medica l history 4. Discussed the surgical plan an d course 5. Reviewed intra-op anesthesia manag ement and issues during anesthesia 6. Se t expectations for the relief (and/or post-pro cedure) period 7. Allowed opportunity for questions and acknowledgement of understanding Viraj Alcazar CRNA 1156 Break/Relief Out 1228 Extubation/LMA Out 1230 an stop data 1241 Recovery or ICU Handoff Patient care was transferred to the destination unit staff after review of the patient's medica l history, current anesthetic/surgi nathan status and plan, according to the Provider Handoff Checklist. 1241 Stop Name Total Propofol 200 mg Propofol INF 1,622.71 mg Succinylcholine 100 mg ePHEDrine 15 mg Glucagon 1 mg Lactated Ringers 750 mL Agents Name O2 Air N2O O2 Auxiliary Flowmeter 1 Blood No blood administrations on file. Lines, Drains, and Airways Type Details Placement Removal Incision 10/24/18; 1507; hip; (bmbx) 10/24/18 1507 by Graciela Paulino RN PIV 10/07/21; 0932; median 10/07/21 0932 by Bryan, 0956 by cubital vein (antecubital Tiffany Page RN Rupal er, HENRIETTA Corrales), right; 10/17/21; 0956 ETT Mask Ventilation: Difficult 10/07/21 0958 by Sanjana cabello, 10/07/21 1228 by (3) (edentulous plus renee); NURIS Coronel Haley J, CRNA ETT Type: Cuffed; ETT Size: 7 mm; Mac Blade: 3; Notes: Asleep, Pre-O2, Stylette; Attempts: 1; Laryngoscopy Grade: 1; ETT Placement Verified By: Auscultation, Capnometry, Visual; Secured at Teeth: 22 cm; Inserted by: NURIS Alonso documented in this encounter Social History Tobacco [...] encounter OR Notes Anesthesia Postprocedure Evaluation - Theresa Wang MD - 10/07/2021 12:43 PM EDT Department of Anesthesiology Post-procedure Note Patient: Jeff Duarte Procedure Summary Date: 10/07/21 Room / Location: [facility] / [facility] Anesthesia Start: 947 Anesthesia Stop: 124 Procedures: ERCP W/SPHINCTEROTOMY/PAPILLOTOMY (N/A Trunk) UPPER EUS- ENDOSCOPIC ULTRASOUND (N/A Trunk) EGD, W US GUIDED FINE NEEDLE ASPIRATION/BIOPSY ERCP, W BALLOON DILATION OF BILIARY/PANCREATIC DUCT CHOLANGIOGRAM FINE NEEDLE ASPIRATION BIOPSY, INC US GUIDANCE; FIRST LESION ERCP, W PLCMNT ENDOSCOPIC STENT BILIARY OR PANCREATIC DUCT Diagnosis: Jaundice Biliary obstruction (Pancreas mass/jaundice) Surgeons: Humberto Dumont MD Responsible Provider: Theresa Wang MD Anesthesia Type: general ASA Status: 3 All Anesthesia Providers: Anesthesiologist: Theresa Wang MD CRYSTAL LAPPER: Vandana Alonso CRNA Vitals Value Taken Time BP 121/42 10/07/21 1240 Temp Pulse 72 10/07/21 1238 Resp 20 10/07/21 1240 SpO2 98 % 10/07/21 1242 Pain Level 0 10/07/21 1238 Vitals shown include unvalidated device data. Patient [facility] Level of Consciousness: Awake and Alert Pain Management: Satisfactory Analgesia PONV: None Cardiovascular Status: At Baseline and Hemodynamically Stable Respiratory Status: At Baseline and Room Air Postoperative Fluid Status: Intravascular EUvolemia Possible Anesthetic Complications: NONE apparent at time of evaluation Final Primary Anesthesia Type: General (The anesthetic type performed was the same as planned.) Comments: THERESA WANG MD Anesthesia Preprocedure Evaluation - Theresa Wang MD - 10/07/2021 9:48 AM EDT Pre-Anesthesia Evaluation for: Jeff Duarte a 66 y.o. male. Procedure(s): ERCP UPPER EUS- ENDOSCOPIC ULTRASOUND Patient Active Problem List Diagnosis Date Noted ??? Jaundice 09/30/2021 ??? CIS - Dyslipidemia 04/25/2008 ??? CIS - Non ST elevation myocardial infarction 04/25/2008 ??? CIS - Tobacco abuse 04/25/2008 No past medical history on file. Past Surgical History: Procedure Laterality Date ? ? PRO DIAGNOSTIC BONE MARROW BIOPSIES & ASPIRATIONS Left 10/24/2018 ([facility]) BONE MARROW BIOPSY AND ASPIRATION; DIAGNOSTIC performed by Sergey Cook MD at [facility] ??? PRO ENDOSCOPIC US EXAM, ESOPH N/A 06/19/2021 UPPER EUS- ENDOSCOPIC ULTRASOUND performed by Gabriel Hilario MD at [facility] Social History Tobacco Use ??? Smoking [...] Physical Exam: Preprocedure Vitals Current as of 10/07/21 0948 BP: 116/47 Pulse: 64 Resp: 18 SpO2: 97 Temp: 36.4 ??C (97.5 ??F) Height: Weight: BMI: IBW: Last edited 10/07/21921 by CB Airway Assessment: Mallampati: II TM distance: >3 FB Neck ROM: full Cardiovascular Assessment: system normal Pulmonary Assessment: pulmonary exam normal Dental Assessment: (+) upper dentures Misc Assessment: Patient is wearing No contact(s). IV access: Peripheral line Last Filed Perioperative Cognitive Screening None Anesthesia Plan: ASA 3 general, with a(n) intravenous induction 66 year old male scheduled for EUS/ERCP NPO confirmed with patient Painless jaundice with new mass Current smoker History of NSTEMI, with placement of stent at [facility] No return of anginal symproms HTN on metoprolol GERD somewhat controlled with meds, script has run out now treated with TUMS Plan [facility] Region - Other Informed Consent: Anesthetic plan and risks discussed with patient. Plan discussed with CRYSTAL LAPPER. Anesthesia Screening documented in this encounter Plan of Treatment Upcoming Encounters Date Type Specialty Care Team Description 11/07/2021 Office Visit Hematology and Oncology Eric Streeter MD [facility] DR ONCOLOGY [place], [place] [address] (Luz fofana) 11/07/2021 Infusion Hematology and Oncology 11/07/2021 Office Visit Hematology and Oncology Irena Hinojosa RD [facility] HEMATOLOGY AND O NCOLOGY [place], [place] [address] (Luz fofana) 11/21/2021 Office Visit Hematology and Oncology Eric Streeter MD [facility] ONCOLOGY [place], [place] [address] (Wo rk) 11/21/2021 Infusion Hematology and Oncology 12/05/2021 Office Visit Hematology and Oncology Eric Streteer MD [facility] [place]OGY [place], [place] [address] (Wo rk) 12/05/2021 Infusion Hematology and Oncology 12/19/2021 Office Visit Hematology and Oncology Eric Streeter MD [facility] ONCOLOGY [place], [place] [address] (Wo rk) 12/19/2021 Infusion Hematology and Oncology documented as of this encounter Visit Diagnoses Not on filedocumented in this encounter Administered Medications Inactive Administered Medications - up to 3 most recent administrations Medication Order MAR Action Action Date Dose Rate Site ePHEDrine sulfate (5 mg/mL) Given 10/07/2021 12:07 PM EDT 5 mg multi-dose injection Intravenous, PRN, Starting on Wed10/07/21 at 1011, Until Wed10/07/21 at 1241, Anesthesia Intra-op, Routine Given 10/07/2021 10:41 AM EDT 5 mg Given 10/07/2021 10:11 AM EDT 5 mg glucagon (Glucagen) (1 mg/mL) injection Given 10/07/2021 11:13 A M EDT 0.5 mg solution Intramuscular, PRN, Starting on Wed10/07/21 at 1054, Until Wed10/07/21 at 1241, Anesthesia Intra-op, Routine Given 10/07/2021 10:54 AM EDT 0.5 mg lactated ringers infusion New Bag 10/07/2021 9:48 AM EDT Intravenous, CONTINUOUS PRN, Starting on Wed10/07/21 at 0948, Until Wed10/07/21 at 1241, Anesthesia Intra-op propofoL (Diprivan) (10 Rate/Dose 10/07/2021 12:15 50 mcg/kg/min 15. 78 mg/mL) infusion Change PM EDT mL/hr Intravenous, CONTINUOUS PRN, Starting on Wed10/07/21 at 1000, Until Wed10/07/21 at 1241, Anesthesia Intra-op, Routine Rate/Dose Change 10/07/2021 12:07 PM EDT 200 mcg/kg/min 63.12 mL/hr Rate/Dose Change 10/07/2021 11:22 AM EDT 250 mcg/kg/min 78.9 mL/hr propofoL (Diprivan) 10 mg/mL bolus injection Given 9:58 AM EDT 200 mg (Anesthesia) Intravenous, PRN, Starting on Wed10/07/21 at 0958, Until Wed10/07/21 at 1241, Anesthesia Intra-op succinylcholine (Anectine;Quelicin) (20 Given 10/07/2021 9:56 AM EDT 100 mg mg/mL) injection Intravenous, PRN, Starting on Wed10/07/21 at 0956, Until Wed10/07/21 at 1241, Anesthesia Intra-op, Routine documented in this encounter Care Teams Managing Principal Relationship Specialty Start Date End Date William Wade PA PCP - General Family Medicine 08/31/[address] [place] [address] [place] [address] documented as of this encounter
--- OUTSIDE RECORDS SUMMARY | 2021-11-07 00:54 | XMS_ITS | Encounter Summary ---
:1955 Author Organization [facility] [place] [address] Care Team Providers Name Role Phone William Wade Primary Care Provider Reason for Visit Auth/Cert Specialty Diagnoses / Procedures Referred By Contact Refer red To Contact Diagnoses Mass of pancreas Jaundice Pancreas mass/jaundice Humberto Dumont MD [facility] Procedures PRO ERCP,DIAGNOSTIC PRO ENDOSCOPIC US EXAM, ESOPH PRO ANESTH, UGI ENDOSCOPY ERCP PRO ANESTH, COMBINED UPPER OR LOWER ENDOSCOPY ERCP UPPER EUS- ENDOSCOPIC ULTRASOUND [facility] [place] [address] Referral ID Status Reason Start Date Expiration Date Visits Requ ested Visits Authorized [id number] 1 1 Encounter Details Date Type Department Care Team Description 10/07/2021 Ancillary Procedure Gastroenterology at [facility], [place] [phone] Social History Tobacco Use Types Packs/Day [...] Visit Hematology and Oncology Eric Streeter MD [facility] ONCOLOGY [place], [place] 0[address] (Wo rk) 11/07/2021 Infusion Hematology and Oncology 11/07/2021 Office Visit Hematology and Oncology Irena Hinojosa RD [facility] [place], [place] 0[address] (Wo rk) 11/21/2021 Office Visit Hematology and Oncology Eric Streeter MD [facility] [address] [place], [place] [address] (Wo rk) 11/21/2021 Infusion Hematology and Oncology 12/05/2021 Office Visit Hematology and Oncology Eric Streeter MD [facility] [address] [place], [place] [address] (Wo rk) 12/05/2021 Infusion Hematology and Oncology 12/19/2021 Office Visit Hematology and Oncology Eric Streeter MD [facility] [address] [place], [place] 0[address] (Wo rk) 12/19/2021 Infusion Hematology and Oncology documented as of this encounter Procedures Procedure Name Priority Date/Time Associated Diagnosis Comme nts XR ERCP Routine 10/07/2021 1:02 PM Results f or this EDT procedure are i n the results section . documented in this encounter Results XR ERCP (10/07/2021 1:02 PM EDT) Specimen (Source) Anatomical Location Collection Method / Collectio n Time Received Time / Laterality Volume Narrative [facility] - 10/07/2021 1:03 PM EDT See PACS for result report. Humberto Dumont MD IMG FILM LIBRARY ORDERABLES Performing Organization Address City/State/ZIP Code Phon e Number [place], [place] documented in this encounter Visit Diagnoses Not on filedocumented in this encounter Care Teams Seam Rubbing Machine Operator Relationship Specialty Start Date End Date William Wade PA PCP - General Family Medicine 08/31/[address] [place] [address] [place], [place] [address] documented as of this encounter
--- OUTSIDE RECORDS SUMMARY | 2021-11-07 00:54 | XMS_ITS | Encounter Summary ---
:1955 [place] [address] Care Team Providers Name Role Phone William Wade Primary Care Provider Reason for Visit Auth/Cert Specialty Diagnoses / Procedures Referred By Contact Refer red To Contact Diagnoses Pancreas cancer pancreas cancer Scooby Stevens MD [facility] Procedures PRO LAP, DX SURGICAL ABD W/BIOPSY PRO INSERT TUNNELED CV CATH W SUBQ PORT, AGE 5 YRS OR OLDER LAPAROSCOPY,SURGICAL,WITH BIOPSY, SINGLE OR MULTIPLE (WRVU 5.44) NAKITA\SILVIA.CATHETER,TUNNELED, WITH SQ PORT OR PUMP OVER 5YR (WRVU 6.04) [facility] [place] [address] Referral ID Status Reason Start Date Expiration Date Visits Requ ested Visits Authorized [id number] 1 1 Encounter Details Date Type Department Care Team Description 10/17/2021 Anesthesia Event Outpatient Surgery Beny Gomez MD [facility] ANESTHESIOLOGY [place] [id number] [place] Ava Izquierdo MD [facility] [place] [address] [facility] [place] [address] Anesthesia Record Procedure Summary Procedure Name Responsible Anesthesia Start Anesthesia Stop Time Anesthesiologist Time LAPAROSCOPY,SURGICA Beny Gomez MD 10/17/21 1028 10/17/21 11 58 L,WITH BIOPSY, SINGLE OR MULTIPLE [facility] (N/A Abdomen) Events Date Time Event Comment 10/17/2021 0955 1028 Start 1030 AN Verify 1031 An Start Data 1043 An Induction 1050 An Intubation 1052 Anesthesia Ready 1100 Procedure Start 1149 Extubation/LMA Out Patient takin g adequate tidal volumes (>300ml), respir atory rate regular (10-14). Opens eyes to co mmand. Oropharynx suctioned, ETT removed, spo ntaneous ventilations maintained. 1152 an stop data 1157 Recovery or ICU Handoff Patient care was transferred to the destination unit staff after review of the patient's medica l history, current anesthetic/surgi nathan status and plan, according to the Provider Handoff Checklist. 1158 Stop Patient brought to recovery with 6L/min O2 via face mask. S pontaneous ventilations maintained. Leatha ent resting comfortably. Name Total Midazolam 2 mg fentaNYL 100 mcg Propofol 200 mg Rocuronium 50 mg ePHEDrine 25 mg Ondansetron 4 mg Dexamethasone 8 mg ceFAZolin 2 g Sugammadex 200 mg lactated ringers infusion 800 mL Agents Name O2 Air N2O Sevoflurane (et) Blood No blood administrations on file. Lines, Drains, and Airways Type Details Placement Removal Incision 10/24/18; 1507; hip; 10/24/18 1507 by (bmbx) Graciela Paulino RN Incision 10/17/21; 1100; Right; 10/17/21 [...] injectable RN port; superior vena cava PIV 10/17/21; 0945; basilic 10/17/21 0945 by 2 1245 by vein (medial side of arm), Jyoti Lutz Ro th, Janice, RN left; [id number] RN catheter system; Anatomical Landmarks; 22 gauge; Kathya LAWLER; topical anesthetic spray applied; 2; no longer indicated, removed per policy/procedure, catheter/device intact; 10/17/21; 1245 ETT Mask Ventilation: Adjunct 10/17/21 1050 by 10/17 1149 by (2) (100mm opa); ETT Type: CoultersCarla connors, Carla Bernstein Cuffed, Oral; ETT Size: 7 AIR CARGO SPECIALIST J, CRN A mm; Mac Blade: 3; Notes: Asleep, Pre-O2, Stylette; Attempts: 2; Laryngoscopy Grade: 1; ETT Placement Verified By: Auscultation, Capnometry; Secured at Teeth: 21 cm; Inserted by: Shasta Stone CRNA documented in this encounter Social History Tobacco [...] Postprocedure Evaluation - Beny Gomez MD - 10/17/2021 3:55 PM EDT Department of Anesthesiology Post-procedure Note Patient: Jeff Duarte Procedure Summary Date: 10/17/21 Room / Location: [facility] [place] [address] [place] [address] OSC Anesthesia Start: 1028 Anesthesia Stop: 1158 Procedures: LAPAROSCOPY,SURGICAL,WITH BIOPSY, SINGLE OR MULTIPLE (WRVU 5.44) (N/A Abdomen) NAKITA\SILVIA.CATHETER,TUNNELED, WITH SQ PORT OR PUMP OVER 5YR (WRVU 6.04) (N/A Chest) Diagnosis: (pancreas cancer) Surgeons: Scooby Stevens MD Responsible Provider: Beny Gomez MD Anesthesia Type: general ASA Status: 3 All Anesthesia Providers: Anesthesiologist: Beny Gomez MD AIR CARGO SPECIALIST: Carla Stone CRNA Vitals Value Taken Time BP 142/53 10/17/21 1230 Temp 36.5 ??C (97.7 ??F) 10/17/21 1153 Pulse 67 10/17/21 1241 Resp 18 10/17/21 1230 SpO2 97 % 10/17/21 1242 Pain Level 0 10/17/21 1230 Vitals shown include unvalidated device data. Patient Location: PACU/[facility] Level of Consciousness: Awake and Alert Pain Management: Satisfactory Analgesia PONV: None Cardiovascular Status: At Baseline and Hemodynamically Stable Respiratory Status: At Baseline and Room Air Postoperative Fluid Status: Intravascular EUvolemia Possible Anesthetic Complications: NONE apparent at time of evaluation Final Primary Anesthesia Type: General (The anesthetic type performed was the same as planned.) Comments: Beny Gomez MD Anesthesia Preprocedure Evaluation - Beny Gomez MD - 10/17/2021 9:53 AM EDT Pre-Anesthesia Evaluation for: Jeff Duarte a 66 y.o. male. Procedure(s): LAPAROSCOPY,SURGICAL,WITH BIOPSY, SINGLE OR MULTIPLE (WRVU 5.44) NAKITA\SILVIA.CATHETER,TUNNELED, WITH SQ PORT OR PUMP OVER 5YR (WRVU 6.04) Patient Active Problem List Diagnosis Date Noted [...] DIAGNOSTIC performed by Sergey Cook MD at [facility] OSC ??? PRO ENDOSCOPIC US EXAM, ESOPH N/A 06/19/2021 UPPER EUS- ENDOSCOPIC ULTRASOUND performed by Gabriel Hilario MD at [facility] ENDOSCOPY ??? PRO ENDOSCOPIC US EXAM, ESOPH N/A 10/07/2021 UPPER EUS- ENDOSCOPIC ULTRASOUND performed by Humberto Dumont MD at [facility] ENDOSCOPY ??? PRO ERCP BALLOON DILATATION BILIARY/PANCREATIC DUCT OR AMPULLA EA DUCT 10/07/2021 ERCP, W BALLOON DILATION OF BILIARY/PANCREATIC DUCT performed by Humberto Dumont MD at [facility] ENDOSCOPY ??? PRO ERCP STENT PLACEMENT BILIARY OR PANCREATIC DUCT 10/07/2021 ERCP, W PLCMNT ENDOSCOPIC STENT BILIARY OR PANCREATIC DUCT performed by Humberto Dumont MD at [facility] ENDOSCOPY ??? PRO ERCP, SPHINCTEROTOMY N/A 10/07/2021 ERCP W/SPHINCTEROTOMY/PAPILLOTOMY performed by Humberto Dumont MD at [facility] ENDOSCOPY ??? PRO FINE NEEDLE ASPIRATION BX W/US GDN 1ST LESION 10/07/2021 FINE NEEDLE ASPIRATION BIOPSY, INC US GUIDANCE; FIRST LESION performed by Humberto Dumont MD at [facility] ENDOSCOPY ??? PRO UPGI ENDOSCOPY W/US FN BX 10/07/2021 EGD, W US GUIDED FINE NEEDLE ASPIRATION/BIOPSY performed by Humberto Dumont MD at [facility] ENDOSCOPY Social History Tobacco Use ??? Smoking [...] Physical Exam: Preprocedure Vitals Current as of 10/17/21 0953 BP: 140/60 Pulse: 67 Resp: 16 SpO2: 97 Temp: 36.5 ??C (97.7 ??F) Height: Weight: BMI: IBW: Last edited 10/17/21922 by EK Airway Assessment: Mallampati: II TM distance: >3 FB Neck ROM: full Cardiovascular Assessment: Rhythm: regular Rate: normal Pulmonary Assessment: unlabored breathing Dental Assessment: (+) upper dentures Misc Assessment: IV access: Peripheral line Last Filed Perioperative Cognitive Screening None Anesthesia Plan: ASA 3 general, with a(n) intravenous induction 66 yo M with hx of HTN, DM, smoker, pancreatic cancer here for laparoscopy with biopsy. Allergy: No Known Allergies Patient Vitals in the past 24 hrs: 10/17/21 0923, BP:140/60, Temp:36.5 ??C (97.7 ??F), Temp src:Temporal, Pulse:67, Resp:16, SpO2:97 % BP Readings from Last 3 Encounters: 10/17/21 : 140/60 10/14/21 : 140/50 10/07/21 : 119/45 Labs: Lab Results Component Value Date WBC 10.3 (H) 10/14/2021 HGB 8.1 (L) 10/14/2021 HCT 25.2 (L) 10/14/2021 MCV 115.6 (H) 10/14/2021 PLATELET 276 10/14/2021 Lab Results Component Value Date NA 133 (L) 10/14/2021 K 4.4 10/14/2021 CL 98 10/14/2021 CO2 23 10/14/2021 BUN 18 10/14/2021 CREATININE 0.74 (L) 10/14/2021 GLUCOSE 268 (H) 10/14/2021 CALCIUM 8.7 10/14/2021 ESTGFR 99 10/14/2021 Lab Results Component Value Date ALT 123 (H) 10/14/2021 AST 161 (H) 10/14/2021 ALKPHOS 1,072 (H) 10/14/2021 BILITOT 5.2 (H) 10/14/2021 BILIDIR 3.5 (H) 10/14/2021 ALBUMIN 2.9 (L) 10/14/2021 PROT 6.9 10/14/2021 No results found for: TSH, W0BDBLF, TT4, THYROIDAB No results found for: HA1C Glucose Lvl Date Value Ref Range Status 10/14/2021 268 (H) 65 - 199 mg/dL Final Comment: Diabetes: >=200 mg/dL plus symptoms NPO >4 METS No active GERD Plan: GETA with PIV access and standard ASA monitors. The patient was informed of the risks, benefits and alternatives of anesthesia. These risks included, but were not limited to, post-operative nausea and/or vomiting, pain, sore throat, dental/lip trauma, and other rare but serious complications such as major organ damage, awareness, severe allergic reactions, position-related nerve injuries, corneal abrasion/blindness and need blood transfusions. Allquestions were sought and answered. Consent was signed and placed in chart. Region - Other Informed Consent: Anesthetic plan and risks discussed with patient. Plan discussed with AIR CARGO SPECIALIST. Anesthesia Screening documented in this encounter Plan of Treatment Upcoming Encounters Date Type Specialty Care Team Description 11/07/2021 Office Visit Hematology and Oncology Eric Streeter MD [facility] DR ONCOLOGY [place], [place] [address] (Wo rk) 11/07/2021 Infusion Hematology and Oncology 11/07/2021 Office Visit Hematology and Oncology Irena Hinojosa RD [facility] [place]ATOLOGY [place] [address] (Wo rk) 11/21/2021 Office Visit Hematology and Oncology Eric Streeter MD [facility] DR [place], [place] [address] (Wo rk) 11/21/2021 Infusion Hematology and Oncology 12/05/2021 Office Visit Hematology and Oncology Eric Streeter MD [facility] [place]OG[place], [place] [address] (Wo rk) 12/05/2021 Infusion Hematology and Oncology 12/19/2021 Office Visit Hematology and Oncology Eric Streeter MD [facility] [address] [place], [place] [address] (Wo rk) 12/19/2021 Infusion Hematology and Oncology documented as of this encounter Visit Diagnoses Not on filedocumented in this encounter Administered Medications Inactive Administered Medications - up to 3 most recent administrations Medication Order MAR Action Action Date Dose Rate Site ceFAZolin (Ancef) 1 g in dextrose Given 10/17/2021 10:55 AM EDT 2 g 5% 50 mL infusion Intravenous, PRN, Starting on Wed10/17/21 at 1055, Until Wed10/17/21 at 1200, Administer over 30 Minutes, Anesthesia Intra-op dexAMETHasone (Decadron) injection Given 10/17/2021 10:57 AM EDT 8 mg Intravenous, PRN, Starting on Wed10/17/21 at 1057, Until Wed10/17/21 at 1200, Anesthesia Intra-op, Routine ePHEDrine sulfate (5 mg/mL) multi-dose Given 10/17/2021 11:21 AM EDT 5 mg injection Intravenous, PRN, Starting on Wed10/17/21 at 1054, Until Wed10/17/21 at 1200, Anesthesia Intra-op, Routine Given 10/17/2021 11:15 AM EDT 5 mg Given 10/17/2021 11:09 AM EDT 5 mg fentaNYL (pf) (50 mcg/mL) multi-dose Given 10/17/2021 11:42 AM E DT 25 mcg injection Intravenous, PRN, Starting on Wed10/17/21 at 1040, Until Wed10/17/21 at 1200, Anesthesia Intra-op, Routine Given 10/17/2021 11:30 AM EDT 25 mcg Given 10/17/2021 11:27 AM EDT 25 mcg lactated ringers infusion Restarted 10/17/2021 10:28 AM EDT 1,000 mL, at 100 mL/hr, Intravenous, CONTINUOUS, Starting on Wed10/17/21 at 0930, Until Wed10/17/21 at 1252, Day of Surgery (Day of Procedure) New Bag 10/17/2021 9:55 AM EDT 1,000 mLs 100 mL/hr midazolam (pf) (Versed) (1 mg/mL) multi-dose Given 10:28 AM EDT 2 mg injection Intravenous, PRN, Starting on Wed10/17/21 at 1028, Until Wed10/17/21 at 1200, Anesthesia Intra-op, Routine ondansetron (pf) (Zofran) (2 mg/mL) inje ction Given 10/17/2021 10:57 AM EDT 4 mg Intravenous, PRN, Starting on Wed10/17/21 at 1057, Until Wed10/17/21 at 1200, Anesthesia Intra-op, Routine propofoL (Diprivan) 10 mg/mL bolus injection Given 10:48 AM EDT 50 mg (Anesthesia) Intravenous, PRN, Starting on Wed10/17/21 at 1043, Until Wed10/17/21 at 1200, Anesthesia Intra-op Given 10/17/2021 10:43 AM EDT 150 mg rocuronium (Zemuron) (10 mg/mL) multi-dose Given 10/17/2021 10:4 4 AM EDT 50 mg injection Intravenous, PRN, Starting on Wed10/17/21 at 1044, Until Wed10/17/21 at 1200, Anesthesia Intra-op, Routine sugammadex (Bridion) 100 mg/mL injection Given 10/17/2021 11:40 AM EDT 200 mg Intravenous, PRN, Starting on Wed10/17/21 at 1140, Until Wed10/17/21 at 1200, Anesthesia Intra-op, Routine documented in this encounter Care Teams Tig Welder Relationship Specialty Start Date End Date William Wade PA PCP - General Family Medicine 08/31/[address] [place] [address] [place] [address] documented as of this encounter
--- OUTSIDE RECORDS SUMMARY | 2021-11-07 00:54 | XMS_ITS | Encounter Summary ---
:1955 Author Organization [facility] [place] [address] Care Team Providers Name Role Phone Willima Wade Primary Care Provider Encounter Details Date Type Department Care Team Description 10/22/2021 Ancillary [facility] [address] [place] [address] [place], [place] [id number] (Wo rk) Social History Tobacco Use Types [...] and Oncology Eric Streeter MD [facility] ONCOLOGY [place], [place] [address] (Wo rk) 11/07/2021 Infusion Hematology and Oncology 11/07/2021 Office Visit Hematology and Oncology Irena Hinojosa RD [facility] DRIVE H[place]ATOLOGY [place], [place] 0[address] (Wo rk) 11/21/2021 Office Visit Hematology and Oncology Eric Streeter MD [facility] ONCOLOGY [place], [place] [address] (Wo rk) 11/21/2021 Infusion Hematology and Oncology 12/05/2021 Office Visit Hematology and Oncology Eric Streeter MD [facility] ONCOLOGY [place], [place] [address] (Wo rk) 12/05/2021 Infusion Hematology and Oncology 12/19/2021 Office Visit Hematology and Oncology Eric Streeter MD [facility] ONCOLOGY [place], [place] [address] (Wo rk) 12/19/2021 Infusion Hematology and Oncology documented as of this encounter Procedures Procedure Name Priority Date/Time Associated Diagnosis Comme nts FILM LIBRARY Routine 10/22/2021 12:00 AM Results for this STORAGE ONLY MR EDT procedure ar e in ABDOMEN the results section. documented in this encounter Results Film Library- Storage Only MR Abdomen (10/22/2021 12:00 AM EDT) Specimen (Source) Anatomical Location Collection Method / Collectio n Time Received Time / Laterality Volume Narrative DANIE - 10/27/2021 2:42 PM EDT This exam is auto-finalizing. It's purpo se is for storage only. William PAVON IMPanda FILM LIBRARY ORDERABLES Performing Organization Address City/State/ZIP Code Phon e Number [place], [place] documented in this encounter Visit Diagnoses Not on filedocumented in this encounter Care Teams Publishing Manager Relationship Specialty Start Date End Date William Wade PA PCP - General Family Medicine 08/31/[address] [place] [address] [place] [address] documented as of this encounter
--- OUTSIDE RECORDS SUMMARY | 2021-11-07 00:54 | XMS_ITS | Encounter Summary ---
:1955 Author Organization [facility] [place] [address] Care Team Providers Name Role Phone William Wade Primary Care Provider Reason for Visit Consultation (Emergency) - Closed Specialty Diagnoses / Procedures Referred By Contact Refer red To Contact Hematology and Diagnoses Jaundice Scooby Stevens Morig, Stacy A, RD Oncology [facility] [address] [place] [address] Referral ID Status Reason Start Date Expiration Visits Visits Date Requested Authorized [id number] Closed Continuity of 10/08/2021 10/08/2022 1 1 Care Encounter Details Date Type Department Care Team Description 10/21/2021 Clinical Support Hematology and Sherry Givens, Malign ant neoplasm Oncology at [facility] RD of head of pancreas [facility] [address] [place] [phone] Social History Tobacco Use Types Packs/Day Years [...] documented as of this encounter Progress Notes Sherry Givens, RD - 10/21/2021 10:00 AM EDT [facility] Initial Assessment Patient Name: Jeff Duarte Diagnosis: Pancreatic cancer Treatment: pending Assessment: HPI Pt is 66 yo male with newly diagnosed pancreatic cancer. Newly on insulin 3 months ago, h/o diabetes He has lost 20#, but gained a little back. He is never hungry, and he is experiencing early satiety. Wt Readings from Last 10 Encounters: 10/14/21 53.1 kg (117 lb) 10/06/21 52.6 kg (115 lb 14.4 oz) 09/30/21 52.6 kg (115 lb 14.4 oz) 06/19/21 54.4 kg (120 lb) 05/30/21 58.6 kg (129 lb 3.2 oz) 11/29/20 59.2 kg (130 lb 9.6 oz) 09/13/20 59 kg (130 lb) 11/24/19 58.5 kg (128 lb 14.4 oz) 07/28/19 58.2 kg (128 lb 5 oz) 11/04/18 57.5 kg (126 lb 12.8 oz) UBW 135 Estimated Needs: Calories: 2567-4254 kcal (30-35 kcal/kg) Protein: 66g (1.2g/kg) Meds: metformin, insulin Labs: noted Diet Recall: Yesterday- B- 2 chocolate chip granola bars (small- ate due to low BG) , Ensure L- tv dinner, turkey/gravy/stuffing (felt very full afterward) S- banana D- mcdonalds (fish filet/fries/ diet soda) - vomited 2 hrs later (felt volume was too much) Sometimes will have fruit at night 350 BG at night Water/diet GA- water-- 2-12 oz bottles B before bed, but sometimes 400-500 averging ~330 avg 50, 90, low 200 in the morning-No correlation with food intake the night before He is symptomatic when he is 50's in the morning. He is titrating his own insulin in the evening due to fear of morning lows BM: No diarrhea; frequency of BM is every few days Color brown color- was nielsen color when had pancreatitis & bile duct blocked No overt signs of EPI- explained symptoms to monitor for Intervention: -- small, frequent meals -- contact PCP for ?insulin adjustment (highs in evening, some lows in morning) -- discussed basics of carbohydrates, protein, fat and how to have mixed snacks/meals (no previous diet education for diabetes) -- Ensure once daily Monitoring: Pt will change his treatment to [facility]- will contact Jerrica Hinojosa RD Pt has my contact information if questions arise. Sherry Givens RD, CNSC, LD documented in this encounter Plan of Treatment Upcoming Encounters Date Type Specialty Care Team Description 11/07/2021 Office Visit Hematology and Oncology Eric Streeter MD [facility] [place]COLOGY [place], [place] [address] (Wo rk) 11/07/2021 Infusion Hematology and Oncology 11/07/2021 Office Visit Hematology and Oncology Irena Hinojosa RD [facility] [address] HEMATOLOGY AND O NCOLOGY [place], [place] 0[address] (Wo rk) 11/21/2021 Office Visit Hematology and Oncology Eric Streeter MD [facility] DR ONCOLOGY [place], [place] [address] (Wo rk) 11/21/2021 Infusion Hematology and Oncology 12/05/2021 Office Visit Hematology and Oncology Eric Streeter MD [facility] DR ONCOLOGY [place], [place] [address] (Wo rk) 12/05/2021 Infusion Hematology and Oncology 12/19/2021 Office Visit Hematology and Oncology Eric Streeter MD [facility] DR ONCOLOGY [place], [place] 0[address] (Wo rk) 12/19/2021 Infusion Hematology and Oncology Scheduled Referrals Name Type Priority Associated Diagnoses Order S chedule Referral to Outpatient Referral STAT Jaundice Ordered: Nutrition Services 2 documented as of this encounter Visit Diagnoses Diagnosis Malignant neoplasm of head of pancreas Malignant neoplasm of head of pancreas documented in this encounter Care Teams Cheese Weigher Relationship Specialty Start Date End Date William Wade PA PCP - General Family Medicine 08/31/[address] [place] [address] [place] [address] documented as of this encounter
--- OUTSIDE RECORDS SUMMARY | 2021-11-07 00:54 | XMS_ITS | Encounter Summary ---
:1955 Author Organization [facility] [place] [address] Care Team Providers Name Role Phone William Wade Primary Care Provider Encounter Details Date Type Department Care Team Description 10/21/2021 Orders Only Hematology and Eric Streeter, Macrocy tic anemia; Oncology at [facility] Malignant neoplasm of head of pancreas [facility] [place] [address] ONCOLOGY [phone] [place], [place] [address] Social History Tobacco Use Types [...] Eric Streeter MD [facility] ONCOLOGY [place], [place] [address] (Wo rk) 11/07/2021 Infusion Hematology and Oncology 11/07/2021 Office Visit Hematology and Oncology Irena Hinojosa RD [facility] DRIVE HEMATOLOGY AND O NCOLOGY [place], [place] [address] (Wo rk) 11/21/2021 Office Visit Hematology and Oncology Eric Streeter MD [facility] [address] [place], [place] [address] (Wo rk) 11/21/2021 Infusion Hematology and Oncology 12/05/2021 Office Visit Hematology and Oncology Eric Streeter MD [facility] [address] [place], [place] [address] (Wo rk) 12/05/2021 Infusion Hematology and Oncology 12/19/2021 Office Visit Hematology and Oncology Eric Streeter MD [facility] ONCOLOGY [place], [place] [address] (Wo rk) 12/19/2021 Infusion Hematology and Oncology documented as of this encounter Visit Diagnoses Diagnosis Macrocytic anemia Unspecified deficiency anemia Malignant neoplasm of head of pancreas Malignant neoplasm of head of pancreas documented in this encounter Care Teams Make Up Worker Relationship Specialty Start Date End Date William Wade PA PCP - General Family Medicine 08/31/[address] [place] [address] [place] [address] documented as of this encounter
--- OUTSIDE RECORDS SUMMARY | 2021-11-07 00:54 | XMS_ITS | Encounter Summary ---
:1955 Author Organization [facility] [place] [address] Care Team Providers Name Role Phone William Wade Primary Care Provider Encounter Details Date Type Department Care Team Description 10/09/2021 Telephone General Surgery at [facility]avez [facility] [place] [address] Social History Tobacco Use Types Packs/Day [...] place to sleep or slept in a skilled nursing (including now)? Sex Assigned at Date Recorded Not on file documented as of this encounter Miscellaneous Notes Telephone Encounter - Charlotte Chavez - 10/09/2021 11:06 AM EDT I called Jeff and reviewed the following appointments with him: 10/14: 8:[address] Juvenal Stevens- 4L 10:00 Lab- 3L Wednesday 2nd: 10 AM Nutrition appt 3K 11AM with Dr Streeter, 3K 1:30 CT of Chest- 3Z He has my phone number if any questions arise before that time. documented in this encounter Plan of Treatment Upcoming Encounters Date Type Specialty Care Team Description 11/07/2021 Office Visit Hematology and Oncology Eric Streeter MD [facility] [address] [place], [place] [address] (Wo rk) 11/07/2021 Infusion Hematology and Oncology 11/07/2021 Office Visit Hematology and Oncology Irena Hinojosa RD [facility] [place] [place] [address] (Wo rk) 11/21/2021 Office Visit Hematology and Oncology Eric Streeter MD [facility] [address] [place], [place] [address] (Wo rk) 11/21/2021 Infusion Hematology and Oncology 12/05/2021 Office Visit Hematology and Oncology Eric Streeter MD [facility] DR [place], [place] [address] (Wo rk) 12/05/2021 Infusion Hematology and Oncology 12/19/2021 Office Visit Hematology and Oncology Eric Streeter MD [facility] ONCOLOGY [place], [place] [address] (Wo rk) 12/19/2021 Infusion Hematology and Oncology documented as of this encounter Visit Diagnoses Not on filedocumented in this encounter Care Teams Globe Tester Relationship Specialty Start Date End Date William Wade PA PCP - General Family Medicine 08/31/[address] [place] [address] [place] [address] documented as of this encounter
--- OUTSIDE RECORDS SUMMARY | 2021-11-07 00:55 | XMS_ITS | Encounter Summary ---
:1955 [place] [address] Care Team Providers Name Role Phone William Wade Primary Care Provider Encounter Details Date Type Department Care Team Description 09/13/2020 Tech Visit Vascular Lab at [facility] nosis of carotid [facility] artery, [place] [address] Social History Tobacco Use Types Packs/Day Years Used Date Current Every Day Smoker Cigarettes 1.5 Smokeless Tobacco: Never Used Comments: knows he will have to quit Financial Resource Strain Answer Date Recorded How [...] Oncology Eric Streeter MD [facility] [address] [place], [place] [address] (Wo rk) 11/07/2021 Infusion Hematology and Oncology 11/07/2021 Office Visit Hematology and Oncology Irena Hinojosa RD [facility] DRIVE HEMATOLOGY AND O NCOLOGY [place], [place] [address] (Wo rk) 11/21/2021 Office Visit Hematology and Oncology Eric Streeter MD [facility] [address] [place], [place] [address] (Wo rk) 11/21/2021 Infusion Hematology and Oncology 12/05/2021 Office Visit Hematology and Oncology Eric Streeter MD [facility] [address] [place], [place] [address] (Wo rk) 12/05/2021 Infusion Hematology and Oncology 12/19/2021 Office Visit Hematology and Oncology Eric Streeter MD [facility] [address] [place], [place] [address] (Wo rk) 12/19/2021 Infusion Hematology and Oncology documented as of this encounter Procedures Procedure Name Priority Date/Time Associated Diagnosis Comme nts CAROTID DUPLEX, Routine 09/13/2020 2:05 PM Stenosis of carotid Results for this BILATERAL EDT artery, unspecified procedur e are in laterality the results section. documented in this encounter Results Carotid Duplex, Bilateral (09/13/2020 2:05 PM EDT) Component Value Ref Test Analysis Performed At [facility] Range Method Time Signature VB Text Department: Vascular Surgery Lab VAS[facility] Report Patient: [id number] (JOHN DUARTE) CPT: 35487 ICD10: I65.23;I65.29 Referring Physician: CLARITZA WATKINS ?? Indications: Patient with h/i bilateral carotid stenosis, ? change ICD10 Diagnosis Code: I65.29 Findings: ICA Proximal, Right ? PSV (cm/s): 137 ? EDV (cm/s): 25 ? ICA/CCA: 1.5 ? Plaque Structure: Echogenic ? Plaque Surface: Irregular ? %Stenosis: 16-49% ICA Distal, Right ? PSV (cm/s): 132 ? EDV (cm/s): 32 ? ICA/CCA: 1.4 CCA Distal, Right ? PSV (cm/s): 94 ? EDV (cm/s): 18 ? %Stenosis: Minimal CCA Proximal, Right ? PSV (cm/s): 103 ? EDV (cm/s): 17 External Carotid Artery, Right ? PSV (cm/s): 216 ? EDV (cm/s): 22 ? %Stenosis: >50% Vertebral, Right ? PSV (cm/s): 71 ? EDV (cm/s): 14 ? Direction of Flow: Antegrade ICA Proximal, Left ? PSV (cm/s): 321 ? EDV (cm/s): 64 ? ICA/CCA: 3.5 ? Plaque Structure: Echogenic ? Plaque Surface: Irregular ? %Stenosis: 50-69% ICA Distal, Left ? PSV (cm/s): 112 ? EDV (cm/s): 28 ? ICA/CCA: 1.2 CCA Distal, Left ? PSV (cm/s): 92 ? EDV (cm/s): 21 ? %Stenosis: Minimal CCA Proximal, Left ? PSV (cm/s): 115 ? EDV (cm/s): 18 External Carotid Artery, Left ? PSV (cm/s): 239 ? EDV (cm/s): 29 ? %Stenosis: >50% Vertebral, Left ? PSV (cm/s): 70 ? EDV (cm/s): 16 ? Direction of Flow: Antegrade Interpretation: RIGHT: A thin layer of circumferential p laque is present in the common carotid artery causing minimal steno sis. There is bulky irregular plaque in the proximal internal carotid artery caus ing 16-49% stenosis when compared to the more distal internal carotid artery. The bifurcation level is in the mid neck. No identifiable change when compared to the previou s exam performed on 07/28/2019. LEFT: A thin layer of circumferential plaque is present in the common carotid artery causing minimal steno sis. There is bulky irregular plaque in the proximal internal carotid artery caus ing 50-69% stenosis when compared to the more distal internal carotid artery. The bifurcation level is in the mid neck. Slight increase in the internal car otid artery PSV's when compared to the previous exam performed on 07/28/2019. Vertebral Artery Data: Patent vertebral arteries with normal antegrade Doppler waveforms and velocities bilaterally. Previous Carotid Studies: Date ?RIGHT ICA St enosis ??PSV ?? Ratio ?? LEFT ICA Stenosis ?? PSV ?? Ratio ? 16-49% ? 78 ?1.10 ? 16-49% ? 99 ?0.90 ? 16-49% ? 120 ?? 1.50 ? 50-69% ? 302 ?? 3.40 Current Exam ? 16-49% ? 137 ?? 1.50 ? 50-69% ? 321 ?? 3.50 Electronically Signed by: MARIANO COTO on 2020-09-16 12:08:36 PM VB Text End of Report VAS[facility] Report Specimen (Source) Anatomical Collection Method Collection Time Re ceived Time Location / / Volume Laterality 09/13/2020 2:05 PM EDT Claritza Watkins MD VASCULAR ORDERABLES Performing Organization Address City/State/ZIP Code Phon e Number V[facility] documented in this encounter Visit Diagnoses Diagnosis Stenosis of carotid artery, unspecified laterality Malignant neoplasm of head of pancreas documented in this encounter Care Teams Acquisition Lead Relationship Specialty Start Date End Date William Wade PA PCP - General Family Medicine 08/31/[address] [place] [address] [place] [address] documented as of this encounter
--- OUTSIDE RECORDS SUMMARY | 2021-11-07 00:55 | XMS_ITS | Encounter Summary ---
:1955 Author Organization [facility] [address] Care Team Providers Name Role Phone William Wade Primary Care Provider Reason for Visit Auth/Cert Specialty Diagnoses / Procedures Referred By Contact Refer red To Contact Diagnoses Mass of pancreas Jaundice Pancreas mass/jaundice Humberto Dumont MD [facility] Procedures PRO ERCP,DIAGNOSTIC PRO ENDOSCOPIC US EXAM, ESOPH PRO ANESTH, UGI ENDOSCOPY ERCP PRO ANESTH, COMBINED UPPER OR LOWER ENDOSCOPY ERCP UPPER EUS- ENDOSCOPIC ULTRASOUND [facility] [place] [address] Referral ID Status Reason Start Date Expiration Date Visits Requ ested Visits Authorized [id number] 1 1 Encounter Details Date Type Department Care Team Description 10/07/2021 [place] [facility] [place] Dumont, ERCP [facility] Nelson cobian MD W/SPHINCTEROTOMY/[place] [address] [facility] LLOTOMY [phone] [address] [place] [address] Social History Tobacco Use Types Packs/Day [...] place to sleep or slept in a care home (including now)? Sex Assigned at Date Recorded Not on file documented as of this encounter Last Filed Vital Signs Vital Sign Reading Time Taken Comments Blood Pressure 116/47 10/07/2021 9:22 AM EDT Pulse 64 10/07/2021 9:22 AM EDT Temperature 36.4 ??C (97.5 ??F) 10/07/2021 9:22 AM EDT Respiratory Rate 18 10/07/2021 9:22 AM EDT Oxygen Saturation 97% 10/07/2021 9:22 AM EDT Inhaled Oxygen Concentration - - Weight - - Height - - Body Mass Index - - documented in this encounter Discharge Instructions Discharge InstructionsKathya Brown RN - 10/07/2021 12:43 PM EDT Endoscopic Retrograde Cholangiopancreatogram (ERCP): What to Expect at Home Your Recovery After you have an endoscopic retrograde cholangiopancreatogram (ERCP), you will be able to go home after your doctor or a nurse checks to make sure you are not having any problems. If you stay in the hospital overnight, you may go home the next day. You may have a sore throat for a day or two after the procedure. This care sheet gives you a general idea about how long it will take for you to recover. But each person recovers at a different pace. Follow the steps below to get better as quickly as possible. How can you care for yourself at home? Activity Rest when you feel tired. You can do your normal activities when it feels okay to do so. Diet Follow your doctor's directions for eating. Unless your doctor has told you not to, drink plenty of fluids. Do not drink alcohol. Medicines Your doctor [...] your doctor wants you to do. If a sphincterotomy was done during the test, your doctor may tell you not to take aspirin or otheranti-inflammatory medicines for a few days. These include ibuprofen (Advil, Motrin) and naproxen (Aleve). If you have a sore throat the day after the procedure, use an wmyu-szo-friwngz spray to numb your throat. Sucking on [...] occurs, please contact your Doctor. Please call [phone] before 8pm Mon-Fri with problems, questions or concerns. If you call after 8pm or on weekends, call the Hospital at [phone] and ask to speak to the Continuous Drier Helper finish production manager and the blown film extrusion operator will contact that person for you. When should you call for help? Call [phone] anytime you think you may need emergency [...] contact your doctor if you have any problems, like Where can you learn more? [facility] View your After Visit Summary and more online at [email or web address] If you would like to provide feedback about your hospital experience, please call the Office of Patient and Family Relations at . If you have received this After Visit Summary in error, please immediately return it in person to the department, or notify the [facility] Privacy Office by calling toll free at between the hours of 8AM and 5PM to arrange for our retrieval of the documents at no cost to you. Content Version: 12.2 ?? [id number] [employer] Care instructions adapted under license by [facility]. If you have questions about a medical condition or this instruction, always ask your healthcare professional. [employer] disclaims any warranty or liability for your use of this information. documented in this encounter Medications at Time [...] 0 07/25 0.4 mg SL tablet tongue. acetaminophen (Tylenol) Take 1,000 mg by 0 10/14/2021 500 mg Tablet mouth every 6 hours as needed for Pain (migraine). ibuprofen (Advil;Motrin) Take 200 mg by 0 10/14/2021 200 mg Tablet mouth every 6 hours as needed for Pain (migraine). tamsulosin (Flomax) 0.4 mg Take 0.4 mg by 0 11/03/2021 Capsule mouth daily. losartan (Cozaar) 25 mg Take 25 mg by mouth 0 11/03/2021 Tablet daily. documented as of this encounter Progress Notes Moraima Velasquez RN - 10/07/2021 2:53 PM EDT Complain ts of Right ribsl in consitent with pre procedural pain medicated with (2) 25mcg of fentanyl . Discharge instructions reviewed witth Patient and friend , extra liter of IVF Given in recovery documented in this encounter H&P Notes Humberto Dumont MD - 10/07/2021 9:43 AM EDT Procedure: eus/ercp Indication: jaundice History of Present Illness: Jeff Duarte is a 66 y.o. man with jaundice and possible pancreatic head mass here for eus and ercp Patient Active Problem List Diagnosis Code ??? CIS - Dyslipidemia ??? CIS - Non ST elevation myocardial infarction ??? CIS - Tobacco abuse ??? Jaundice R17 Medications: Reviewed in EDH No Known Allergies Social History/Family History: Reviewed in EDH. No changes Exam: Patient Vitals for the past 24 hrs: Temp Pulse Resp BP SpO2 O2 Device 10/07/21 0922 36.4 ??C (97.5 ??F) 64 18 116/47 97 % RA Axox3, nad Anicteric, MMM CTAB RRR, no m/r/g abd soft nt nd +bs Assessment and Plan: Proceed with ERCP: EUS: ASA Grade: ASA 3 - Patient with moderate systemic disease with functional limitations Mallampati score:I (soft palate, uvula, fauces, tonsillar pillars visible) Sedation plan: GETA Risks and benefits of the procedure were discussed with the patient. Consent has been signed. Humberto Dumont MD documented in this encounter Plan of Treatment Upcoming Encounters Date Type Specialty Care Team Description 11/07/2021 Office Visit Hematology and Oncology Eric Streeter MD [facility] [address] [place], [place] [address] (Wo rk) 11/07/2021 Infusion Hematology and Oncology 11/07/2021 Office Visit Hematology and Oncology Irena Hinojosa RD [facility] AND [place], [place] [address] (Wo rk) 11/21/2021 Office Visit Hematology and Oncology Eric Streeter MD [facility] [address] [place], [place] [address] (Wo rk) 11/21/2021 Infusion Hematology and Oncology 12/05/2021 Office Visit Hematology and Oncology Eric Streeter MD [facility] [address] [place], [place] [address] (Wo rk) 12/05/2021 Infusion Hematology and Oncology 12/19/2021 Office Visit Hematology and Oncology Eric Streeter MD [facility] [address] [place], [place] [address] (Wo rk) 12/19/2021 Infusion Hematology and Oncology documented as of this encounter Procedures Procedure Name Priority Date/Time Associated Comments Diagnosis XR ERCP Routine 10/07/2021 1:02 PM Results f or this EDT procedure are i n the results section. NON-ROLL SHEETING CUTTER FINAL REPORT Routine 10/07/2021 10:33 Res ults for this AM EDT procedure are i n the results section. CYTOPATHOLOGY Routine 10/07/2021 10:33 Results fo r this NON-GYNECOLOGICAL AM EDT procedure are in the results section. ERCP, W PLCMNT 10/07/2021 9:49 AM Jaundice ENDOSCOPIC STENT EDT Biliary obstruction BILIARY OR PANCREATIC DUCT FINE NEEDLE ASPIRATION 10/07/2021 9:49 AM Jaundi ce BIOPSY, INC US EDT Biliary obstruction GUIDANCE; FIRST LESION CHOLANGIOGRAM 10/07/2021 9:49 AM Jaundice EDT Biliary obstruction ERCP, W BALLOON 10/07/2021 9:49 AM Jaundice DILATION OF EDT Biliary obstruction BILIARY/PANCREATIC DUCT EGD, W US GUIDED FINE 10/07/2021 9:49 AM Jaundic e NEEDLE EDT Biliary obstruction ASPIRATION/BIOPSY UPPER EUS- ENDOSCOPIC 10/07/2021 9:49 AM Jaundic e ULTRASOUND EDT Biliary obstruction ERCP 10/07/2021 9:49 AM Jaundice W/SPHINCTEROTOMY/PAPIL EDT Biliary obstructio n LOTOMY ERCP Routine 10/07/2021 9:42 AM Results f or this EDT procedure are i n the results section. UPPER EUS-ENDOSCOPIC Routine 10/07/2021 9:41 AM R esults for this ULTRASOUND EDT procedure are i n the results section. POCT GLUCOSE Routine 10/07/2021 9:30 AM Results f or this EDT procedure are i n the results section. documented in this encounter Results XR ERCP (10/07/2021 1:02 PM EDT) Specimen (Source) Anatomical Location Collection Method / Collectio n Time Received Time / Laterality Volume Narrative [facility] - 10/07/2021 1:03 PM EDT See PACS for result report. Humberto Dumont MD IMG FILM LIBRARY ORDERABLES Performing Organization Address City/State/ZIP Code Phon e Number [facility], [place] Non-Celery Stripper Final Report (10/07/2021 10:33 AM EDT) Component Value Ref Test Analysis Performed At [facility] Range Method Time Signature Non-Celery Stripper [id number] ? Location: 4T; EA11; A KAMALJIT Final Report RACIEL The signing pathologist has (i) examined the relevant preparation(s) for the [facility] specimen(s) and (ii) rendered or confirmed the diagnosis(es) . [facility] . ? No n-Celery Stripper Final DIAGNOSIS Positive for Malignancy Electronically signed by: ?John PETERSON PhD, Isaac Santiago Verified: ??10/08/2021 12:25 ??Pathologist Performed at: ??-[facility] [place], [place], [place] DISCUSSION Pancreas, head (EUS-guided FNA): Adenocarcinoma. Cell block was examined. CLINICAL INFORMATION Specimen Source : Pancreas, head (EUS-guided FNA, assisted) Pertinent Clinical Data and Significant Therapy: 66yo male, jaundice, pancreatic head mass Clinical Impression : Pancreatic head mass Pertinent Radiologic Findings ??: (not provided) Gross Description: Received in Formalin approxi mately 45 mL total volume of cloudy, pink fluid, with clots. Total Preparation: Diff-Quik 2; Pap Stain 2; Cell Block 1. Fine Needle Aspiration Immediate Assessment: Evaluation Episode #1 (1 slide): Inadequate for final diagnosis. Scattered atypical cells. Evaluation Episode #2 (1 slide): Adequate for final diagnosis. Highly atypical epithelial cells. Immediate Assessment by: ?? Isaac Lopez MD, PhD. Note: The above attending cytopathologist personally exami miguel the Immediate Assessment slides and rendered the Imme diate Assessment. Such assessments are preliminary; see Diagnosis and Discussion for final interpr etation. Specimen (Source) Anatomical Collection Method Collection Time Re ceived Time Location / / Volume Laterality 10/07/2021 10:33 AM EDT Humberto Dumont MD PATHOLOGY/CYTOLOGY ORDERABLE S Performing Organization Address City/State/ZIP Code Phon e Number [place] [address] [facility] [address] Cytopathology Non-Gynecological (10/07/2021 10:33 AM EDT) Specimen Anatomical Collection Method Collection Time Receive d Time (Source) Location / / Volume Laterality AP Specimen 10/07/2021 10:33 10/07/2021 AM EDT 10:33 AM EDT Narrative [facility] - 10/07/2021 10:33 AM EDT Specimen requisition ordered. ??Separate Pathology report to follow Humberto Dumont MD PATHOLOGY/CYTOLOGY ORDERABLE S Performing Organization Address City/State/[place] [address] ERCP (10/07/2021 9:42 AM EDT) [facility] gist Method Time Signature ERCP [facility] Endoscopy Procedure Date: 10/07/2021 9:42 AM ? Patient Name: Jeff Duarte ? Date of : 1955 ? Age: 66 ? Order #: [id number] ? Instrument Name: [id number] ? Procedure: ? ERCP Indications: ? Jaundice Providers: ? Julita Lee ? HENRIETTA Burleson, Dali Reyna is, ? Mor Fuentes MD: ?LIBRADO Ribeiro Medicines: ? General Anesthesia [...] edure ? well. ? Findings: ? The flooring salesperson film was normal. The esophagus was [...] severe stricture of ? the distal common ornel duct. A 0.035 inch x 260 cm [...] Procedure Code(s): ? --- Professional --- ? 27942, Esophagogastroduode noscopy, ? flexible, transoral; diagn ostic, ? including collection of sp ecimen(s) ? by brushing or washing, wh en ? performed (separate proced ure) Diagnosis Code(s): ? --- Professional --- ? R17, Unspecified jaundice ? K83.1, Obstruction of bile duct ? --- Technical --- ? R17, Unspecified jaundice ? K83.1, Obstruction of bile duct CPT copyright 2020 [employer]. All rights reserved. The codes documented in this report are preliminary and upon obedience trainer review may be revised to meet current [...] Component Value Ref Test Analysis Performed At [facility] Range Method Time Signature UPPER [facility] ENDOSCOPIC Endoscopy ULTRASOUND _ Procedure Date: 10/07/2021 9:41 AM ? Patient Name: Jeff Duarte ? Date of : 1955 ? Age: 66 ? Order #: [id number] ? Instrument Name: [id number] ? Procedure: ? Upper EUS Indications: ? Suspected solid pancreatic neopl asm Providers: ? Julita Lee ? Benjy, HENRIETTA, Dali Reyna is, ? Mor Fuentes MD: ?LIBRADO Ribeiro Medicines: ? General Anesthesia [...] par t of ? duodenum. The patient mahendrae rated the ? procedure well. ? Findings: [...] Procedure Code(s): ? --- Professional --- ? 81841, Esophagogastroduode noscopy, ? flexible, transoral; with ? [...] ? hemorrhage or perforation CPT copyright 2020 [employer]. All rights reserved. The codes documented in this report are preliminary and upon obedience trainer review may be revised to meet current compliance requirements. Attending Participation: ? I personally performed the entire procedure. ? Humberto Dumont, 10/07/2021 12:22:52 PM Number of Addenda: 0 Note Initiated On: 10/07/2021 9:41 AM Specimen (Source) Anatomical Collection Method Collection Time Re ceived Time Location / / Volume Laterality 10/07/2021 9:41 AM EDT William [facility] ORDERABLES Performing Organization Address City/State/ZIP Code Phon e Number [facility] POCT Glucose (10/07/2021 9:30 AM EDT) P athologist Signature POC Glucose 115 65 - 199 [facility] Comment: Supplemental ranges: <140 mg/dL before meals <180 mg/dL all other times of the day Specimen Anatomical Collection Method Collection Time Receive d Time (Source) Location / / Volume Laterality Blood 10/07/2021 9:30 AM 9:30 EDT AM EDT Humberto Dumont MD POINT OF CARE TEST ORDERABLE S Performing Organization Address City/State/[place] [address] documented in this encounter Visit Diagnoses Diagnosis Jaundice Jaundice, unspecified, not of Biliary obstruction Obstruction of bile duct Malignant neoplasm of head of pancreas documented in this encounter Administered Medications Inactive Administered Medications - up to 3 most recent administrations Medication Order MAR Action Action Date Dose Rate Site fentaNYL (PF) (50 mcg/mL) Given 10/07/2021 2:31 PM EDT 25 mcg injection 25 mcg 25 mcg, Intravenous, EVERY 30 MIN PRN, Starting on 10/07/21 at 1401, Until Tu10/07/21 at 1703, Pain, If medication ordered subcutaneously, do not administer more than 2 mL as a single injection., Endoscopy (Recovery-Hospital Unit), Routine Given 10/07/2021 2:07 PM EDT 25 mcg lactated ringers infusion New Bag 10/07/2021 9:34 AM EDT 100 mL/hr 100 mL/hr 100 mL/hr, Intravenous, CONTINUOUS, Starting on Wed10/07/21 at 0945, Until Wed10/07/21 at 1703, Endoscopy (Day of Procedure) documented in this encounter Active and Recently Administered Medications Times are shown in EDT. Continuous Medication Order 10/05/2021 10/06/2021 10/07/2021 lactated ringers infusion 0934 ( New Bag - Provider: Tiffany Adams RN) 100 mL/hr, Intravenous, CONTINUOUS, Star ting on 10/07/21 at 0945, Until 10/07/21 at 1703, Endoscopy (Day of Procedure) PRN Medication Order 10/05/2021 10/06/2021 10/07/2021 fentaNYL (PF) (50 mcg/mL) injection 25 mcg 1407 (Given - Provider: Moraima Velasquez, RN)1431 (Given - Provider: Moraima Velasquez, HENRIETTA) 25 mcg, Intravenous, EVERY 30 MIN PRN, S tarting on 10/07/21 at 1401, Until 10/07/21 at 1703, Pain, If medication ordered subcutaneously, do not administer more than 2 mL as a single injection., Endoscopy (Recovery-Hospital Unit), Routine documented in this encounter Care Teams Channel Rougher Relationship Specialty Start Date End Date Mauro, William J, PA PCP - General Family Medicine 08/31/[address] [place] [address] [place] [address] documented as of this encounter
--- OUTSIDE RECORDS SUMMARY | 2021-11-07 00:55 | XMS_ITS | Encounter Summary ---
:1955 Author Organization [facility] [place] [address] Care Team Providers Name Role Phone William Wade Primary Care Provider Encounter Details Date Type Department Care Team Description 10/01/2021 [place] [facility] Benitez [facility] [place] [address] Social History Tobacco Use Types Packs/Day Years Used Date Current Every Day Smoker Cigarettes 1 Smokeless Tobacco: Never Used Comments: knows he [...] encounter Miscellaneous Notes Telephone Encounter - Caroline Benitez - 10/01/2021 12:40 PM EDT Inbound/Outbound: OUT Spoke to Patient/Left Message: Spoke with Patient Notes: patient can not locate a hazmat cdl a driver for Wednesday but has on if Wednesday - Sent in-basket to Dr. Hilario Return calls can be handled by: Caroline documented in this encounter Plan of Treatment Upcoming Encounters Date Type Specialty Care Team Description 11/07/2021 Office Visit Hematology and Oncology Eric Streeter MD [facility] [place], [place] [address] (Luz rk) 11/07/2021 Infusion Hematology and Oncology 11/07/2021 Office Visit Hematology and Oncology Irena Hinojosa RD [facility] HEMATOLOGY AND O NCOLOGY [place], [place] [address] (Wo rk) 11/21/2021 Office Visit Hematology and Oncology Eric Streeter MD [facility] [address] [place], [place] [address] (Wo rk) 11/21/2021 Infusion Hematology and Oncology 12/05/2021 Office Visit Hematology and Oncology Eric Streeter MD [facility] [address] [place], [place] [address] (Wo rk) 12/05/2021 Infusion Hematology and Oncology 12/19/2021 Office Visit Hematology and Oncology Eric Streeter MD [facility] DR ONCOLOGY [place], [place] [address] (Wo rk) 12/19/2021 Infusion Hematology and Oncology documented as of this encounter Visit Diagnoses Not on filedocumented in this encounter Care Teams Director Of Cardiac Rehabilitation Relationship Specialty Start Date End Date William Wade PA PCP - General Family Medicine 08/31/[address] [place] [address] [place] [address] documented as of this encounter
--- OUTSIDE RECORDS SUMMARY | 2021-11-07 00:55 | XMS_ITS | Encounter Summary ---
:1955 Author Organization [facility] [place] [address] Care Team Providers Name Role Phone William Wade Primary Care Provider Reason for Visit Auth/Cert Specialty Diagnoses / Procedures Referred By Contact Refer red To Contact Diagnoses Pancreatic mass EUS with possible FNA pending findings for mild pancreatic ductal dilation and two small subcentimeter hypoenhancing lesions in pancreas tail; to be within 2 weeks with advanced endoscopist. Procedures PRO ENDOSCOPIC US EXAM, ESOPH PRO ANESTH, COMBINED UPPER OR LOWER ENDOSCOPY PRO UPGI ENDOSCOPY, FN NEEDLE BX, GUIDED UPPER EUS- ENDOSCOPIC ULTRASOUND Referral ID Status Reason Start Date Expiration Date Visits Requ ested Visits Authorized [id number] 1 1 Encounter Details Date Type Department Care Team Description 06/19/2021 Anesthesia Event Gastroenterology at [facility] [place] Alfonzo Chavez MD [facility] [place] [address] [facility] Jeff Mcgregor MD [facility] [place] [address] [place] [address] Anesthesia Record Procedure Summary Procedure Name Responsible Anesthesia Start Anesthesia Stop Anesthesiologist Time Time UPPER EUS- Alfonzo Chavez MD 06/19/21 1620 06/19/21 1 645 ENDOSCOPIC ULTRASOUND (N/A Trunk) Events Date Time Event Comment 06/19/2021 1602 1620 AN Verify 1620 Start 1620 An Start Data 1622 An Induction 1623 Anesthesia Ready 1643 an stop data 1645 Recovery or ICU Handoff Patient care was transferred to the destination unit staff after review of the patient's medica l history, current anesthetic/surgi nathan status and plan, according to the Provider Handoff Checklist. 1645 Stop Name Total Propofol 40 mg Propofol INF 206.72 mg Lactated Ringers 600 mL Agents Name O2 Air N2O Blood No blood administrations on file. Lines, Drains, and Airways Type Details Placement Removal Incision 10/24/18; 1507; hip; (bmbx) 10/24/18 1507 by Graciela Harrell RN PIV 06/19/21; 1443; cephalic 06/19/21 1443 by Victor Hugo , 06/19/21 1741 by vein (lateral side of arm), HENRIETTA Eaton Deanna L, RN right; muna-fnn-hcozla catheter system; Anatomical Landmarks; 20 gauge; bushra perrin; distraction, tolerated well, appears comfortable; 0; 06/19/21; 1741 documented in this encounter Social History Tobacco [...] encounter OR Notes Anesthesia Postprocedure Evaluation - Jeff Del Cid MD - 06/19/2021 4:45 PM EDT Department of Anesthesiology Post-procedure Note Patient: Jeff Duarte Procedure Summary Date: 06/19/21 Room / Location: [facility] ENDO 2 / [facility] ENDOSCOPY Anesthesia Start: 1620 Anesthesia Stop: 1645 Procedure: UPPER EUS- ENDOSCOPIC ULTRASOUND (N/A Trunk) Diagnosis: (EUS with possible FNA pending findings for mild pancreatic ductal) (dilation and two small subcentimeter hypoenhancing lesions in pancreas) (tail; to be within 2 weeks with advanced endoscopist.) Surgeons: Gabriel Hilario MD Responsible Provider: Alfonzo Chavez MD Anesthesia Type: general ASA Status: 3 All Anesthesia Providers: Anesthesiologist: Alfonzo Chavez MD Environmental Services Manager: Jeff Del Cid MD Vitals Value Taken Time BP Temp Pulse Resp SpO2 Pain Level Patient Location: PACU/[facility] Level of Consciousness: Conscious but Sleepy Pain Management: Satisfactory Analgesia PONV: None Cardiovascular Status: At Baseline and Hemodynamically Stable Respiratory Status: At Baseline and Room Air Postoperative Fluid Status: Intravascular EUvolemia Possible Anesthetic Complications: NONE apparent at time of evaluation Final Primary Anesthesia Type: MAC (The anesthetic type performed was the same as planned.) Comments: Jeff Del Cid MD Anesthesia Preprocedure Evaluation - Alfonzo Chavez MD - 06/18/2021 6:42 PM EDT Images from the original note were not included. Pre-Anesthesia Evaluation for: Jeff Duarte a 66 y.o. male. Procedure(s): UPPER EUS- ENDOSCOPIC ULTRASOUND Patient Active Problem List Diagnosis Date Noted ??? CIS - Dyslipidemia 04/25/2008 ??? CIS - Non ST elevation myocardial infarction 04/25/2008 ??? CIS - Tobacco abuse 04/25/2008 No past medical history on file. Past Surgical History: Procedure Laterality Date ? ? PRO DIAGNOSTIC BONE MARROW BIOPSIES & ASPIRATIONS Left 10/24/2018 ([facility]) BONE MARROW BIOPSY AND ASPIRATION; DIAGNOSTIC performed by Sergey Cook MD at [facility] Social History Tobacco Use ??? Smoking status: Current Every Day Smoker Packs/day: 1.00 Types: Cigarettes ??? Smokeless tobacco: Never Used ??? Tobacco comment: knows he will have to quit Substance Use Topics ??? Alcohol use: Not on file Social History Substance and Sexual Activity Drug Use Not on file No Known Allergies Medications: MAR and/or home medications have been reviewed. Physical Exam: Preprocedure Vitals Current as of 06/18/211841 No BP, pulse, respiration, SpO2, or temperature recorded. Height: Weight: BMI: IBW: Airway Assessment: Mallampati: II TM distance: >3 FB Neck ROM: full Cardiovascular Assessment: Rhythm: regular Rate: normal Pulmonary Assessment: unlabored breathing Dental Assessment: Misc Assessment: Patient is wearing No contact(s). IV access: Peripheral line Last Filed Perioperative Cognitive Screening None Anesthesia Plan: ASA 3 general, with a(n) intravenous induction 66 yo m will undergo EUS with FNA due to pancreatic lesion. Mhx otherwise - NSTEMI, tobacco use. No TTE on file. Carotid duplex notable for about 40% stenosis on average. Will plan on GA with ETT. Blood pressure support throughout. Jeff Del Cid PhD, MD. Anesthesiology. Region - Other Informed Consent: Anesthetic plan and risks discussed with patient. Plan discussed with CURRENCY EXAMINER. Anesthesia Screening documented in this encounter Plan of Treatment Upcoming Encounters Date Type Specialty Care Team Description 11/07/2021 Office Visit Hematology and Oncology Eric Streeter MD [facility] ONCOLOGY [place] [address] (Wo rk) 11/07/2021 Infusion Hematology and Oncology 11/07/2021 Office Visit Hematology and Oncology Irena Hinojosa RD [facility] [address] HEMATOLOGY AND O NCOLOGY [place], [place] [address] (Wo rk) 11/21/2021 Office Visit Hematology and Oncology Eric Streeter MD [facility] ONCOLOGY [place], [place] [address] (Wo rk) 11/21/2021 Infusion Hematology and Oncology 12/05/2021 Office Visit Hematology and Oncology Eric Streeter MD [facility] ONCOLOGY [place] [address] (Wo rk) 12/05/2021 Infusion Hematology and Oncology 12/19/2021 Office Visit Hematology and Oncology Eric Streeter MD [facility] ONCOLOGY [place], [place] [address] (Wo rk) 12/19/2021 Infusion Hematology and Oncology documented as of this encounter Visit Diagnoses Not on filedocumented in this encounter Administered Medications Inactive Administered Medications - up to 3 most recent administrations Medication Order MAR Action Action Date Dose Rate Site lactated ringers infusion New Bag 06/19/2021 4:20 PM EDT Intravenous, CONTINUOUS PRN, Starting on Yanet 06/19/21 at 1620, Until Yanet 06/19/21 at 1645, Anesthesia Intra-op propofoL (Diprivan) (10 mg/mL) New Bag 06/19/2021 4:22 PM 200 mcg/kg/min 65.28 mL/hr infusion EDT Intravenous, CONTINUOUS PRN, Starting on Yanet 06/19/21 at 1622, Until Yanet 06/19/21 at 1645, Anesthesia Intra-op, Routine propofoL (Diprivan) 10 mg/mL bolus injection Given 4:26 PM EDT 20 mg (Anesthesia) Intravenous, PRN, Starting on Yanet 3/31/22 at 1622, Until Yanet 06/19/21 at 1645, Anesthesia Intra-op Given 06/19/2021 4:22 PM EDT 20 mg documented in this encounter Care Teams Dust Collector Attendant Relationship Specialty Start Date End Date William Wade PA PCP - General Family Medicine 08/31/[address] [place] [address] [place] [address] documented as of this encounter
--- OUTSIDE RECORDS SUMMARY | 2021-11-07 00:55 | XMS_ITS | Encounter Summary ---
:1955 Author Organization [facility] [place] [address] Care Team Providers Name Role Phone William Wade Primary Care Provider Reason for Visit Auth/Cert Specialty Diagnoses / Procedures Referred By Contact Refer red To Contact Diagnoses Mass of pancreas Jaundice Pancreas mass/jaundice Humberto Dumont MD [facility] Procedures PRO ERCP,DIAGNOSTIC PRO ENDOSCOPIC US EXAM, ESOPH PRO ANESTH, UGI ENDOSCOPY ERCP PRO ANESTH, COMBINED UPPER OR LOWER ENDOSCOPY ERCP UPPER EUS- ENDOSCOPIC ULTRASOUND [facility] [place] [address] Referral ID Status Reason Start Date Expiration Date Visits Requ ested Visits Authorized [id number] 1 1 Encounter Details Date Type Department Care Team Description 10/07/2021 Hospital Encounter Gastroenterology at [facility] Humberto Dumont, [facility] [place] [phone] [facility] [phone] [place] [address] Social History Tobacco Use Types Packs/Day [...] Sign Reading Time Taken Comments Blood Pressure 119/45 10/07/2021 12:50 PM EDT Pulse 72 10/07/2021 12:38 PM EDT Temperature 36.4 ??C (97.5 ??F) 10/07/2021 9:22 AM EDT Respiratory Rate 18 10/07/2021 1:30 PM EDT Oxygen Saturation 97% 10/07/2021 12:50 PM EDT Inhaled Oxygen Concentration - - Weight - - Height - - Body Mass Index - - documented in this encounter Discharge Instructions Discharge InstructionsToKathya flannery RN - 10/07/2021 12:43 PM EDT Endoscopic [...] the day after the procedure, use an hzvv-nvi-hasbriq spray to numb your throat. Sucking on [...] occurs, please contact your Doctor. Please call [phone] before 8pm Mon-Fri with problems, questions or concerns. If you call after 8pm or on weekends, call the Hospital at [phone] and ask to speak to the Kerfer Machine Operator regional medical director and the acid crane operator will contact that person for you. When should you call for help? Call [phone] anytime you think you may need emergency [...] problems, like Where can you learn more? [facility] View your After Visit Summary and more online at [email or web address] If you would like to provide [...] cost to you. Content Version: 12.2 ?? [id number] [employer]. Care instructions adapted under license by [facility]. If you have questions about a medical condition or this instruction, always ask your healthcare professional. [employer] disclaims any warranty or liability for your [...] Oncology Eric Streeter MD [facility] [address] [place], [place] [address] (Wo rk) 11/07/2021 Infusion Hematology and Oncology 11/07/2021 Office Visit Hematology and Oncology Irena Hinojosa RD [facility] [address] HEMATOLOGY [facility] [place] [address] (Wo rk) 11/21/2021 Office Visit Hematology and Oncology Eric Streeter MD [facility] [address] [place], [place] [address] (Wo rk) 11/21/2021 Infusion Hematology and Oncology 12/05/2021 Office Visit Hematology and Oncology Eric Streeter MD [facility] [address], [place] [address] (Wo rk) 12/05/2021 Infusion Hematology and Oncology 12/19/2021 Office Visit Hematology and Oncology Eric Streeter MD [facility] [address], [place] [address] (Wo rk) 12/19/2021 Infusion Hematology and Oncology documented as of this encounter Procedures Procedure Name Priority Date/Time Associated Comments Diagnosis XR ERCP Routine 10/07/2021 1:02 PM Results f or this EDT procedure are i n the results section. NON-RACE STARTER FINAL REPORT Routine 10/07/2021 10:33 Res ults [...] Time Received Time / Laterality Volume Narrative [facility] - 10/07/2021 1:03 PM EDT See PACS for result report. Humberto Dumont MD IMG FILM LIBRARY ORDERABLES Performing Organization Address City/State/ZIP Code Phon e Number [facility], [place] Non-Global Safety Officer Final Report (10/07/2021 10:33 AM EDT) Component Value Ref Test Analysis Performed At [facility] gist Range Method Time Signature Non-Global Safety Officer [id number] ? Location: 4T; EA11; A KAMALJIT Final Report RACIEL The signing pathologist has (i) examined the relevant preparation(s) for the [facility] specimen(s) and (ii) rendered or confirmed the diagnosis(es) . [facility] . ? No n-Global Safety Officer Final DIAGNOSIS Positive for Malignancy Electronically signed by: ?John PETERSON PhD, Isaac Santiago Verified: ??10/08/2021 12:25 ??Pathologist Performed at: ??-[facility] Dept. of Pathology, [place], [place] DISCUSSION Pancreas, head (EUS-guided FNA): Adenocarcinoma. [...] Address City/State/ZIP Code Phon e [place] [address] Cytopathology Non-Gynecological (10/07/2021 10:33 AM EDT) Specimen Anatomical Collection Method Collection Time Receive d Time (Source) Location / / Volume Laterality AP Specimen 10/07/2021 10:33 10/07/2021 AM EDT 10:33 AM EDT Narrative [facility] - 10/07/2021 10:33 AM EDT Specimen requisition ordered. ??Separate Pathology report to follow Humberto Dumont MD PATHOLOGY/CYTOLOGY ORDERABLE S Performing Organization Address City/State/[place] [address] ERCP (10/07/2021 9:42 AM EDT) [facility] gist Method Time Signature ERCP [facility] Endoscopy Procedure Date: 10/07/2021 9:42 AM ? Patient Name: Jeff Duarte ? Date of : 1955 ? Age: 66 ? Order #: [id number] ? Instrument Name: [id number] ? Procedure: ? ERCP Indications: ? Jaundice [...] edure ? well. ? Findings: ? The machine tool rebuilder film was normal. The esophagus was ? [...] Procedure Code(s): ? --- Professional --- ? 14961, Esophagogastroduode noscopy, ? flexible, transoral; diagn ostic, ? including collection of sp ecimen(s) ? by brushing or washing, wh en ? performed (separate proced ure) Diagnosis Code(s): ? --- Professional --- ? R17, Unspecified jaundice ? K83.1, Obstruction of bile duct ? --- Technical --- ? R17, Unspecified jaundice ? K83.1, Obstruction of bile duct CPT copyright 2020 [employer]. All rights reserved. The codes documented in this report are preliminary and upon gas meter checker review may be revised to meet current [...] Component Value Ref Test Analysis Performed At [facility] Method Time Signature UPPER [facility] ENDOSCOPIC Endoscopy ULTRASOUND _ Procedure Date: 10/07/2021 9:41 AM ? Patient Name: Jeff Duarte ? Date of : 1955 ? Age: 66 ? Order #: [id number] ? Instrument Name: [id number] ? Procedure: ? Upper EUS Indications: ? Suspected solid pancreatic neopl asm Providers: ? Julita Lee ? Benjy, RN, Dali Reyna is, ? Mor Fuentes MD: [...] par t of ? duodenum. The patient tole rated the ? procedure well. ? Findings: [...] Procedure Code(s): ? --- Professional --- ? 96500, Esophagogastroduode noscopy, ? flexible, transoral; with ? [...] ? hemorrhage or perforation CPT copyright 2020 [employer]. All rights reserved. The codes documented in this report are preliminary and upon gas meter checker review may be revised to meet current compliance requirements. Attending Participation: ? I personally performed the entire procedure. ? Humberto Dumont, 10/07/2021 12:22:52 PM Number of Addenda: 0 Note Initiated On: 10/07/2021 9:41 AM Specimen (Source) Anatomical Collection Method Collection Time Re ceived Time Location / / Volume Laterality 10/07/2021 9:41 AM EDT William PAVON GENERAL SURGICAL ORDERABLES Performing Organization Address City/[facility]/ZIP Code Phon e Number [facility] POCT Glucose (10/07/2021 9:30 AM EDT) P athologist Signature POC Glucose 115 65 - 199 KAMALJIT AMBRIZCOCK mg/dL [facility] Comment: Supplemental ranges: <140 mg/dL before meals <180 mg/dL all other times of the day Specimen Anatomical Collection Method Collection Time Receive d Time (Source) Location / / Volume Laterality Blood 10/07/2021 9:30 AM 9:30 EDT AM EDT Humberto Dumont MD POINT OF CARE TEST ORDERABLE S Performing Organization Address City/State/[place] [address] documented in this encounter Visit Diagnoses Not on filedocumented in this encounter Administered Medications Inactive Administered Medications - up to 3 most recent administrations Medication Order MAR Action Action Date Dose Rate Site fentaNYL (PF) (50 mcg/mL) Given 10/07/2021 2:31 PM EDT 25 mcg injection 25 mcg 25 mcg, Intravenous, EVERY 30 MIN PRN, Starting on 10/07/21 at 1401, Until 10/07/21 at 1703, Pain, If medication ordered subcutaneously, do not administer more than 2 mL as a single injection., Endoscopy (Recovery-Hospital Unit), Routine Given 10/07/2021 2:07 PM EDT 25 mcg lactated ringers infusion New Bag 10/07/2021 9:34 AM EDT 100 mL/hr 100 mL/hr 100 mL/hr, Intravenous, CONTINUOUS, Starting on 10/07/21 at 0945, Until Tu10/07/21 at 1703, Endoscopy (Day of Procedure) documented [...] Velasquez, RN)1431 (Given - Provider: Moraima Velasquez, RN) 25 mcg, Intravenous, EVERY 30 MIN PRN, S tarting on 10/07/21 at 1401, Until 10/07/21 at 1703, Pain, If medication ordered subcutaneously, do not administer more than 2 mL as a single injection., Endoscopy (Recovery-Hospital Unit), Routine documented in this encounter Care Teams Slicer Machine Operator Relationship Specialty Start Date End Date William Wade PA PCP - General Family Medicine 08/31/[address] [place] [address] [place] [address] documented as of this encounter
--- OUTSIDE RECORDS SUMMARY | 2021-11-07 00:55 | XMS_ITS | Encounter Summary ---
:1955 Author Organization [place] [address] Care Team Providers Name Role Phone William Wade Primary Care Provider Reason for Referral Diagnostic Test (Emergency) - Closed Specialty Diagnoses / Procedures Referred By Contact Refer red To Contact Radiology Diagnoses Jaundice Biliary obstruction Gabriel Hilario MD [facility] Rad Ct Scan Procedures CT Abdomen w Contrast [facility] [place] [address] [place] [address] Referral ID Status Reason Start Date Expiration Date Visits V isits Requested Authorized [id number] Closed Specialty 09/30/2021 04/02/2023 1 1 Service Requested Reason for Visit Diagnostic Test (Emergency) - Closed Specialty Diagnoses / Procedures Referred By Contact Refer red To Contact Radiology Diagnoses Jaundice Biliary obstruction Gabriel Hilario MD [facility] Rad Ct Scan Procedures CT Abdomen w Contrast [facility] [place] [address] [place] [address] Referral ID Status Reason Start Date Expiration Date Visits V isits Requested Authorized [id number] Closed Specialty 09/30/2021 04/02/2023 1 1 Service Requested Encounter Details Date Type Department Care Team Description 09/30/[address] [facility] [place] [facility] Gabriel Hilario; [facility] MD Jhon Biliary [address] [place], [place] C[place] [address] GASTROENTEROLOGY [phone] [facility] [place] [address] Social History Tobacco Use Types Packs/Day Years [...] Sig Dispensed Refills Start Date End Date aspirin EC 81 mg Tablet, Take 81 [...] mg by mouth 0 11/03/2021 Tablet daily. metoprolol succinate 100 MG = 1 0 07/25/200809/19 (TOPROL-XL) 100 mg XL Tablet(s), PO, Once tablet daily documented as of this encounter Plan of Treatment Upcoming Encounters Date Type Specialty Care Team Description 11/07/2021 Office Visit Hematology and Oncology Eric Streeter MD [facility] ONCOLOGY [place], [place] [address] (Wo rk) 11/07/2021 Infusion Hematology and Oncology 11/07/2021 Office Visit Hematology and Oncology Irena Hinojosa RD [facility] [place] [address] (Wo rk) 11/21/2021 Office Visit Hematology and Oncology Eric Streeter MD [facility] ONCOLOGY [place], [place] [address] (Wo rk) 11/21/2021 Infusion Hematology and Oncology 12/05/2021 Office Visit Hematology and Oncology Eric Streeter MD [facility] ONCOLOGY [place], [place] [address] (Wo rk) 12/05/2021 Infusion Hematology and Oncology 12/19/2021 Office Visit Hematology and Oncology Eric Streeter MD [facility] ER DR ONCOLOGY [place], [place] [address] (Wo rk) 12/19/2021 Infusion Hematology and Oncology documented as of this encounter Procedures Procedure Name Priority Date/Time Associated Diagnosis Comme nts CT ABDOMEN W STAT 09/30/2021 4:42 PM Jaundice Results for this CONTRAST EDT Biliary obstruction procedur e are in the results section. documented in this encounter Results CT Abdomen w Contrast (09/30/2021 4:42 PM [...] who have questions please contact the health spiritual care coordinator that requested your imaging first. ? Narrative 09/30/2021 5:38 PM EDT EXAMINATION: CT [...] image 5 and 7 were outside the olubi-oe-wvzf of the prior study with th e [...] structures: No suspicious lesion s. Procedure Note Jeff Gann MD - 09/30/2021Form atting of this [...] image 5 and 7 were outside the sxpbu-hp-[id number] of the prior study with th e [...] ho have questions please contact the health spiritual care coordinator that requested your imaging first. Electronically signed by: Jeff denney MD, [facility] ([phone]), at 09/30/2021 5:38 PM Gabriel Hilario MD IMG CT ORDERABLES documented in this encounter Visit Diagnoses Diagnosis Jaundice Jaundice, unspecified, not of Biliary obstruction Obstruction of bile duct Malignant neoplasm of head of pancreas documented in this encounter Administered Medications Inactive Administered Medications - up to 3 most recent administrations Medication Order MAR Action Action Date Dose Rate Site iohexoL (Omnipaque) (350 mg/mL) Given 09/30/2021 4:42 PM EDT 80 mLs solution 0-200 mL 0-200 mL, Intravenous, ONCE PRN, 1 dose, Starting on 09/30/21 at 1621, Until 09/30/21 at 1642, Per Protocol, Warning Vesicant/Irritant Medication , Radiology Contrast, Routine documented in this encounter Care Teams Geosciences Associate Professor Relationship Specialty Start Date End Date William Wade PA PCP - General Family Medicine 08/31/[address] [place] [address] [place] [address] documented as of this encounter
--- OUTSIDE RECORDS SUMMARY | 2021-11-07 00:55 | XMS_ITS | Encounter Summary ---
:1955 Author Organization [facility] [place] [address] Care Team Providers Name Role Phone William Wade Primary Care Provider Reason for Visit Reason Comments Follow-up Encounter Details Date Type Department Care Team Description 11/29/2020 Office Visit Hematology and Sergey Cook Anemia, unspecified Oncology at [facility] [place] MD Jhon type [address] [place], [place] [phone] Social History Tobacco Use Types Packs/Day Years [...] place to sleep or slept in a intermediate (including now)? Sex Assigned at Date Recorded Not on file documented as of this encounter Last Filed Vital Signs Vital Sign Reading Time Taken Comments Blood Pressure 136/54 11/29/2020 12:57 PM EDT Pulse 57 11/29/2020 12:57 PM EDT Temperature 36.4 ??C (97.5 ??F) 11/29/2020 12:57 PM EDT Respiratory Rate 14 11/29/2020 12:57 PM EDT Oxygen Saturation 98% 11/29/2020 12:57 PM EDT Inhaled Oxygen Concentration - - Weight 59.2 kg (130 lb 9.6 oz) 11/29/2020 12:57 PM EDT Height 165.1 cm (5' 5) 11/29/2020 12:57 PM EDT Body Mass Index 21.73 11/29/2020 12:57 PM EDT documented in this encounter Progress Notes Sergey Cook MD - 11/29/2020 1:00 PM EDT OUTPATIENT HEMATOLOGY/ ONCOLOGY CONSULTATION HISTORY PRESENT ILLNESS This patient is a 65 y.o. male presenting for evaluation of weight loss and macrocytosis without anemia, as referred by William Laguna. Initial Presentation (09/30/18): This is a 63-year-old male who is been quite troubled by persistent and unexplained weight loss over the course of the last several months. He endorses having to change all of his pants twice. He has had no noticeable change in his food consumption or appetite. However,he is quite concerned. His primary care doctor performed a CAT scan of the chest abdomen pelvis which was largely unrevealing. From hematological standpoint there were no lymph nodes nor organomegaly. The next step in the work-up for his weight loss was to pursue his macrocytosis. Despite not having anemia and his other blood cell lines being normal, his MCV remains above 105. He is not on any medications which would routinely do this. He denies any alcohol. He has no known liver disease, which wascorroborated by the normal CT scan. Of note, going back into the old computer system, he had a similarly elevated MCV about 10 years ago. [facility] PCP is already performed a thorough work-up, including B12, MMA, folate, TSH. These values have all been within the normal range. Work up ?? CT scan- No masses or lymphadenopathy ?? Bone marrow (10/24/18)- hypocellular, but no evidence of dysplasia INTERIM HISTORY He returns in f/u. He has been well. No new issues. No constitutional symptoms. Feels fine. No ETOH. 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 acetaminophen (Tylenol Extra Strength) 500 mg Tablet Take 1,000 mg by mouth every 6 hours as needed for Pain (migraine). Yes ibuprofen (Advil;Motrin) 200 mg Tablet Take 200 mg by mouth every 6 hours as needed for Pain (migraine). Yes tamsulosin (Flomax) 0.4 mg Capsule Take 0.4 mg by mouth daily. Yes losartan (Cozaar) 25 mg Tablet Take 25 mg by mouth daily. Yes aspirin EC 81 mg Tablet, Delayed Release (E.C.) Take 81 mg by mouth daily. Yes atorvastatin (LIPITOR) 80 mg Tablet Yes metFORMIN (GLUCOPHAGE) 850 mg Tablet 2 times daily. Yes metoprolol succinate (TOPROL-XL) 100 mg XL tablet 100 MG = 1 Tablet(s), PO, Once daily Patient taking differently: Take 25 mg by mouth 2 times daily. Yes nitroGLYcerin (NITROSTAT) 0.4 mg SL tablet 0.4 MG = 1 Tablet(s), Sublingual, PRN chest pressure Patient not taking: Reported on 11/29/2020 PAST MEDICAL HISTORY- reviewed Patient Active Problem List Diagnosis Code ??? CIS - Dyslipidemia ??? CIS - Non ST elevation myocardial infarction ??? CIS - Tobacco abuse PAST SURGICAL HISTORY Non contributory FAMILY HISTORY- reviewed Does not know about their blood testing No blood disorders COMPREHENSIVE REVIEW OF SYSTEMS Besides what is mentioned in the HPI, all other systems are negative PHYSICAL EXAMINATION Patient Vitals for the past 24 hrs: Temp Pulse Resp BP SpO2 11/29/20 1257 36.4 ??C (97.5 ??F) 57 14 136/54 98 % NAD, pleasant, thin but healthy appearing Heart is RRR Lung sounds are CTAB Abd is soft, NT/ ND, there is no palpable organomegally Lymphadenopathy is not appreciated in neck or axilla Joints are not swollen or inflamed There are no gross neurologic deficits. Facial movement is symmetric. Speech is fluent and congruent. Gait and balance are normal Affect and mood are appropriate for the situation There are no appreciable rashes LABORATORY EVALUATION Recent Results (from the past 24 hour(s)) Hemogram Result Value Ref Range WBC 8.2 4.0 - 9.5 x10(3)/mcL RBC 3.58 (L) 4.58 - 5.54 x10(6)/mcL Hemoglobin 12.8 (L) 13.7 - 16.5 gm/dL Hematocrit 37.4 (L) 40.5 - 48.5 % MCV 104.5 (H) 82.9 - 93.1 fL MCH 35.8 (H) 27.5 - 32.1 pg MCHC 34.2 32.0 - 35.7 gm/dL Platelets 150 145 - 357 x10(3)/mcL RDWSD 48.9 (H) 36.0 - 45.0 fL RDWCV 12.7 11.4 - 13.8 % MPV 11.2 7.6 - 12.9 fL nRBC % Auto 0.0 % nRBC Abs Auto 0.000 0.000 - 0.000 x10(3)/mcL Differential, Automated Result Value Ref Range Neutrophils % 59.1 % Neutr Abs (ANC) 4.86 1.70 - 6.10 x10(3)/mcL Lymphocytes % 29.7 % Lymphocytes Abs 2.4 0.9 - 3.2 x10(3)/mcL Monocytes % 8.8 % Monocyte Abs 0.7 0.3 - 0.9 x10(3)/mcL Eosinophils % 1.8 % Eosinophils Abs 0.2 0.0 - 0.4 x10(3)/mcL Basophils % 0.5 % Basophils Abs 0.0 0.0 - 0.1 x10(3)/mcL Immature Gran % 0.10 % Neda Gran Abs 0.01 0.00 - 0.04 x10(3)/mcL RADIOGRAPHIC EVALUATION As above PATHOLOGY EVALUATION Reviewed Bone marrow biopsy in BM conference with pathology and heme teams ASSESSMENT: Jeff G Gerald is a 65 y.o. male presents with significant macrocytosis without anemia,in the setting of unexplained weight loss. He had a similar MCV roughly 10 yrs ago. Peripheral bloodtesting for vitamins, reticulocytosis, etc has been unrevealing. Bone marrow was unremarkable except for hypocellularity (10-20%). Unfortunately, he developed a mild anemia today. While the anemia is not very impressive, it may indicate progression of some underlying process, such as MDS or AA. Will RTC in 6 months with labs and appt. Next step would be repeating BM, but I think that seems like overkill for hgb= 12.8. Sergey Cook MD Pager: [phone] 11/29/2020 documented in this encounter Plan of Treatment Upcoming Encounters Date Type Specialty Care Team Description 11/07/2021 Office Visit Hematology and Oncology Eric Streeter MD [facility] ONCOLOGY [place], [place] [address] (Wo rk) 11/07/2021 Infusion Hematology and Oncology 11/07/2021 Office Visit Hematology and Oncology Irena Hinojosa RD [facility] [address] HEMATOLOGY AND [place], [place] [address] (Wo rk) 11/21/2021 Office Visit Hematology and Oncology Eric Streeter MD [facility] ONCOL[facility] [place], [place] [address] (Wo rk) 11/21/2021 Infusion Hematology and Oncology 12/05/2021 Office Visit Hematology and Oncology Eric Streeter MD [facility] DR [address]RE[address]A [place], [place] [address] (Wo rk) 12/05/2021 Infusion Hematology and Oncology 12/19/2021 Office Visit Hematology and Oncology Eric Streeter MD [facility] ON[facility] [place], [place] [address] (Wo rk) 12/19/2021 Infusion Hematology and Oncology documented as of this encounter Results Vitamin B12 (05/30/2021 11:59 AM EST) athologist Signature Vitamin B-12 418 232 - 1,245 [facility]/mL [facility] Specimen Anatomical Collection Method Collection Time Receive d Time (Source) Location / / Volume Laterality Blood 05/30/2021 11:59 05/30/2021 AM EST 12:20 PM EST Resulting Agency Comment Spec In Lab Sergey Cook MD CHEMISTRY ORDERABLES Performing Organization Address City/[facility] Phon e Number [address] Reticulocyte Count (05/30/2021 11:59 AM EST) athologist [facility] Retic Ct % 1.1 0.7 - 2.6 [facility] LABORAT[facility] Retic Ct Abs 0.040 0.030 - [facility] 0.120 [facility] x10(6)/[facility] LABORATORY Immature Retic% 6.5 0.0 - 15.[address] [facility] K [facility] Reticulated Hgb 40.1 31.3 - [facility] 40.2 pg [facility] Specimen Anatomical Collection Method Collection Time Receive d Time (Source) Location / / Volume Laterality Blood 05/30/2021 11:59 05/30/2021 AM EST 12:20 PM EST Resulting Agency Comment Spec In Lab Sergey Cook MD HEMATOLOGY ORDERABLES Performing Organization Address City/[facility]/ZIP [facility] Phon e Number [place] [phone] [facility] Folate, serum (05/30/2021 11:59 AM EST) athologist [facility] Folate Lvl 15.7 4.8 - 24.2 [facility] ng/mL [facility] Specimen Anatomical Collection Method Collection Time Receive d Time (Source) Location / / Volume Laterality Blood 05/30/2021 11:59 05/30/2021 AM EST 12:20 PM EST Resulting Agency Comment Spec In Lab Sergey Cook MD CHEMISTRY ORDERABLES Performing Organization Address City/State/[place]IP [place] [address] Comprehensive metabolic panel (non-fasting) (05/30/2021 11:59 AM EST) P athologist Signature Glucose Lvl 143 65 - 199 [facility] mg/dL [facility] Comment: Diabetes: >=200 mg/dL plus symp toms BUN 20 10 - 20 mg/dL [facility] Creatinine 1.01 0.80 - 1.50 mg/dL [facility] Sodium 138 135 - 145 mmol/L [facility] Potassium 4.7 3.5 - 5.0 mmol/L [facility] Comment: Please note: ??Patients with WBC >100,00 0 may have falsely elevated Potassium levels. ??For accurate Potassium quantif ication in these patients send serum separator tube (gold top) for subsequent determinations. ??Contact the Clinical Chemistry Laboratory if there are any qu estions. Chloride 104 98 - 107 mmol/L [facility] CO2 26 22 - 31 mmol/L [facility] Anion Gap 8 5 - 15 mmol/L [facility] Calcium 9.3 8.5 - 10.5 mg/dL [facility] Total Protein 6.7 6.1 - 8.0 g/dL [facility] Albumin 4.0 3.2 - 5.2 g/dL [facility] AST 17 0 - 39 unit/L [facility] ALT 14 0 - 55 unit/L [facility] Alk Phos 74 40 - 130 unit/L [facility] Total Bilirubin 0.7 0.2 - 1.3 mg/dL [facility] Estimated GFR 77 >=60 mL/min/1.73 m?? [facility] Comment: This patient? s estimated glomerular filtration rate (eGFR) is between 77 mL/min/1.73 m2 (patients with less muscl e mass per kg body weight) and 89 mL/min/1.73 m2 (patients with more muscl e mass per kg body weight) as determined by the CKD-EPI equation. Asse ssment of eGFR is not appropriate when creatinine concentrations are rapidly ch anging. For clinical decisions where creatinine clearance will affect therapy , a 24-hour urine creatinine clearance may be advised. Assignment of CKD stage 1 - 5 for patien ts with an eGFR near the transition point between stages may be based on cli nical assessment of muscle mass and symptoms in addition to eGFR. Specimen Anatomical Collection Method Collection Time Receive d Time (Source) Location / / Volume Laterality Blood 05/30/2021 11:59 05/30/2021 AM EST 12:20 PM EST Resulting Agency Comment Spec In Lab Sergey Cook MD CHEMISTRY ORDERABLES Performing Organization Address City/State/ZIP Code Phon e Number [place] [phone] documented in this encounter Visit Diagnoses Diagnosis Anemia, unspecified type Malignant neoplasm of head of pancreas documented in this encounter Care Teams Bookkeeper Relationship Specialty Start Date End Date William Wade PA PCP - General Family Medicine 08/31/[address] [place] [address] [place] [address] documented as of this encounter
--- OUTSIDE RECORDS SUMMARY | 2021-11-07 00:55 | XMS_ITS | Encounter Summary ---
:1955 Author Organization [facility] [place] [address] Care Team Providers Name Role Phone William [...] Expiration Date Visits Requ ested Visits Authorized [id number] 1 1 Encounter Details Date Type Department Care Team Description 06/19/2021 Hospital Encounter Gastroenterology at [facility] Gabriel Hilario, [facility] [place] [address] [facility] [phone] [facility] [place], [place] [address] Social History Tobacco Use Types [...] Sign Reading Time Taken Comments Blood Pressure 169/56 06/19/2021 5:40 PM EDT Pulse 70 06/19/2021 2:28 PM EDT Temperature 36.9 ??C (98.4 ??F) 06/19/2021 2:28 PM EDT Respiratory Rate 16 06/19/2021 5:40 PM EDT Oxygen Saturation 100% 06/19/2021 5:40 PM EDT Inhaled Oxygen Concentration - - Weight 54.4 kg (120 lb) 06/19/2021 2:28 PM EDT Height 165.1 cm (5' 5) 06/19/2021 2:28 PM EDT Body Mass Index 19.97 06/19/2021 2:28 PM EDT documented in this encounter Discharge Instructions Discharge Maricruz Simms RN - 06/19/2021 5:34 PM EDT Endoscopic Ultrasound (Oral): What to Expect At Home Your Recovery After you have an endoscopic ultrasound--a test to look for problems in the stomach, liver, gallbladder, and other organs--you will stay at the hospital or clinic for 1 to 2 hours. This will allow the medicine to wear off. You will be able to go home after your doctor or nurse checks to make sure you are not having any problems. You may have a sore throat for [...] doctor wants you to do. If a biopsy was done during the test, your doctor may tell you not to take aspirin or other anti-inflammatory medicines for a few days. These include ibuprofen (Advil, Motrin) and naproxen (Aleve). If you have a sore throat the day after the procedure, use an unlb-vuy-uemryqk spray to numb your throat. Sucking on [...] occurs, please contact your Doctor. Please call [phone] before 8pm Mon-Fri with problems, questions or concerns. If you call after 8pm or on weekends, call the Hospital at [phone] and ask to speak to the Potato Chip Packaging Machine Operator environmental engineering intern and the clothespin drier operator will contact that person for you. When should you call for help? Call [phone] anytime you think you may need emergency [...] any problems. Where can you learn more? [facility] View your After Visit Summary and more online at [email or web address] If you would like to provide feedback about your hospital experience, please call the Office of Patient and Family Relations at . If you have received this After Visit Summary in error, please immediately return it in person to the department, or notify the [facility] Privacy Office by calling toll free at between the hours of 8AM and 5PM to arrange for our retrieval of the documents at no cost to you. Content Version: 12.2 ?? 9822-4017 [employer]. Care instructions adapted under license by [facility]. If you have questions about a medical condition or this instruction, always ask your healthcare professional. [employer] disclaims any warranty or liability for your use of this information. Patient InstructionsGabriel Hilario MD - 06/19/2021 4:45 PM EDT Please see Recommendations in the Provation procedure report which is documented in the procedural note in E-DH. documented in this encounter Medications at Time of Discharge Medication Sig Dispensed Refills Start Date End Date aspirin EC 81 mg Tablet, Take 81 mg by mouth 0 Delayed Release (E.C.) daily. atorvastatin (LIPITOR) 80 40 mg. 0 09/21/2018 mg Tablet metFORMIN (GLUCOPHAGE) 850 2 times daily. 0 09/21 mg Tablet nitroGLYcerin (NITROSTAT) Place under the 0 07/25 0.4 mg SL tablet tongue. pantoprazole EC (Protonix) Take 1 tablet by 60 tablet 2 09/17/2021 40 mg Tablet, Delayed mouth 2 times daily Release (E.C.) (before meals) for 90 days. acetaminophen (Tylenol) Take 1,000 mg by 0 [...] tablet daily documented as of this encounter H&P Notes Spenser Isidro MD - 06/19/2021 4:14 PM EDT Patient Name: Jeff Duarte Patient Age: 66 y.o. Birthdate: 1955 Admit date: 06/19/2021 Attending Physician: Gabriel Hilario MD Gastroenterology and Hepatology Pre-Procedure History and Physical Exam Procedure: EUS: Indication: abnormal imaging of pancreas with mild PD dilation and possible cysts Patient Active Problem List Diagnosis Code ??? CIS - Dyslipidemia ??? CIS - Non ST elevation myocardial infarction ??? CIS - Tobacco abuse EXAM: HEENT: Airway examined, oropharynx clear Mallampati Score: per anesthesia LUNGS: Clear to auscultation HEART: Regular rate and rhythm, normal S1, S2 ABDOMEN: Normal bowel sounds, soft, non tender, non distended A/P Proceed with the planned endoscopic procedure. ASA 3 - Patient with moderate systemic disease with functional limitations Sedation Plan: anesthesia Risks and benefits of the procedure explained to the patient in detail. Consent signed. documented in this encounter Miscellaneous Notes Op Note - Gabriel Hilario MD - 06/19/2021 4:25 PM EDT [facility] Operative Note Patient Name: Jeff Duarte : [id number] MR#: [id number] Case Date: 06/19/2021 Surgeon: Surgeon(s) and Role: * Gabriel Hilario MD - Primary * Spenser Isidro MD - Fellow Preoperative diagnosis: EUS with possible FNA pending findings for mild pancreatic ductal dilation and two small subcentimeter hypoenhancing lesions in pancreas tail; to be within 2 weeks with advanced endoscopist. Postoperative diagnosis: * No post-op diagnosis entered * Procedure(s) (LRB): UPPER EUS- ENDOSCOPIC ULTRASOUND (N/A) Anesthesia: General Full procedure note is documented under the Procedure section of eD. documented in this encounter Plan of Treatment Upcoming Encounters Date Type Specialty Care Team Description 11/07/2021 Office Visit Hematology and Oncology Eric Streeter MD [facility] [place], [place] [address] (Wo rk) 11/07/2021 Infusion Hematology and Oncology 11/07/2021 Office Visit Hematology and Oncology Irena Hinojosa RD [facility] [place] [address] (Wo rk) 11/21/2021 Office Visit Hematology and Oncology Eric Streeter MD [facility] ER [address] [place], [place] [address] (Wo rk) 11/21/2021 Infusion Hematology and Oncology 12/05/2021 Office Visit Hematology and Oncology Eric Streeter MD [facility] [address] [place], [place] [address] (Wo rk) 12/05/2021 Infusion Hematology and Oncology 12/19/2021 Office Visit Hematology and Oncology Eric Streeter MD [facility] [address] [place], [place] [address] (Wo rk) 12/19/2021 Infusion Hematology and Oncology documented as of this encounter Procedures Procedure Name Priority Date/Time Associated Diagnosis Comme nts UPPER EUS- 06/19/2021 4:18 PM EUS with possible FNA ENDOSCOPIC EDT pending findings for ULTRASOUND mild pancreatic ductal dilation and two small subcentimeter hypoenhancing lesions in pancreas tail; to be within 2 weeks with advanced endoscopist. UPPER Routine 06/19/2021 4:12 PM Results f or this EUS-ENDOSCOPIC EDT procedure are in ULTRASOUND the results section. documented in this encounter Results UPPER EUS-ENDOSCOPIC ULTRASOUND (06/19/2021 4:12 PM EDT) Component Value Ref Test Analysis Performed Pathologis t Range Method Time At [facility] ENDOSCOPIC Endoscopy ULTRASOUND _ Procedure Date: 06/19/2021 4:12 PM ? Patient Name: Jeff Duarte ? Date of : 1955 ? Age: 66 ? Order #: [id number] ? Instrument Name: [id number] ? Procedure: ? Upper EUS Indications: ? Dilated pancreatic duct on CT sc an, ? Pancreatic cyst on CT scan Providers: ? Gabriel Hilario MD, Arash Faust ? HENRIETTA Patel, Edouard Juarez ? Emaniar, Spenser Banks MD: ?LIBRADO Ribeiro Medicines: ? Monitored Anesthesia Care Complications: ? No immediate complications. ? Estimated blood loss: None . Procedure: ? Pre-Anesthesia Assessment: ? - Prior to the procedure, a History ? and Physical was performed , and ? patient medications, aller gies and ? sensitivities were reviewe d. The ? patient's tolerance of pre vious ? anesthesia was reviewed. ? - The risks and benefits o f the ? procedure and the sedation options ? and risks were discussed w ith the ? patient. All questions wer e ? answered and informed cons ent was ? obtained. ? - ASA Grade Assessment: II I - A ? patient with severe system ic ? disease. ? - Monitored anesthesia car e under ? the supervision of an ? anesthesiologist was deter mined to ? be medically necessary for this ? procedure based on age 65 or older, ? severe comorbidity (greate r than ? ASA Grade II) and complex procedure ? (ERCP, EUS). ? The procedure, indications , ? benefits, risks and altern atives ? were explained to the chiara ent. ? Specifically discussed wer e ? potential complications in cluding, ? but not limited to, joelle bernard, ? perforation, infection, mi ssing a ? cancer, and adverse medica tion ? reactions.The Endosonoscop e was ? introduced through the phan th, and ? advanced to the second par t of ? duodenum. The upper EUS wa s ? accomplished with ease. Th e patient ? tolerated the procedure we ll. ? Findings: ? ENDOSCOPIC FINDING: : ? LA Grade B (one or more mucosal breaks greater than 5 ? mm, not extending between the tops of two mucosal ? folds) esophagitis with no bleeding was found 38 to ? 39 cm from the incisors. ? Esophagogastric landmarks were identified: the Z-line ? was found at 39 cm, the gastroesophageal junction was ? found at 39 cm and the site of hiatal narrowing was ? found at 40 cm from the incisors. ? The exam of the stomach revealed a small probable ? lipoma and was otherwise normal. ? The duodenal bulb was normal. A mildly inflamed ? likely prolapsing mucosal fold was noted in the ? second portion of the duodenum without worrisome ? features. ? ENDOSONOGRAPHIC FINDING: : ? The esophagus, stomach and duodenum were visualized ? endosonographically and were unremarkable. ? Anechoic lesions suggestive of two small cysts ? measuring 5-6mm were identified in the pancreatic ? body and pancreatic tail. There was no associated ? mass. ? The pancreatic duct was mildly dilated to 5mm in the ? head and neck and about 3mm in the body and tail ? without any worrisome features identified. ? Diffuse lobularity and heterogeneity was seen ? throughout the entire pancreas suggestive of possible ? mild chronic pancreatitis versus age related changes ? in setting of chronic tobacco use. ? There was no sign of significant endosonographic ? abnormality in the common bile duct. An unremarkable ? gallbladder was identified. ? There was no sign of significant endosonographic ? abnormality in the visualized portion of the liver. ? There was no sign of significant endosonographic ? abnormality in the left adrenal gland. ? No lymphadenopathy seen. ? Moderate Sedation: ? Not applicable - See Anesthesia documentation Impression: ?- LA Grade B reflux esophagitis ? with no bleeding, likely r eflux ? related. ? - Two benign appearing 5-6 mm ? cystic lesions were seen i n the ? pancreatic body and pancre atic tail ? associated with mild diffu se ? pancreatic ductal dilation and ? parenchymal changes that m ay ? reflect mild chronic pancr eatitis ? vs age related change. The small ? cysts may represent branch duct ? intraductal papillary muci nous ? neoplasms but have low ris k ? features. ? - Inflamed, possible prola psing ? duodenal fold. Recommendation: ?- Patient has a contact number ? available for emergencies. The ? signs and symptoms of pote ntial ? delayed complications were ? discussed with the patient . Return ? to normal activities marco antonio whaley. ? Written discharge instruct ions were ? provided to the patient. ? - Discharge patient to tosha e ? (ambulatory). ? - Perform MRCP in 1 year f or ? surveillance of the pancre as cysts ? and mild pancreatic duct d ilation ? (can be ordered by PCP). ? - Start a proton pump inhi bitor for ? reflux. ? - The attending physician listed ? above was present for the entire ? procedure. ? Procedure Code(s): ? --- Professional --- ? 18672, Esophagogastroduode noscopy, ? flexible, transoral; with ? endoscopic ultrasound exam ination, ? including the esophagus, s tomach, ? and either the duodenum or a ? surgically altered stomach where ? the jejunum is examined di stal to ? the anastomosis CPT copyright 2020 [employer] [place] [employer]. All rights reserved. The codes documented in this report are preliminary and upon edge stainer machine review may be revised to meet current compliance requirements. Attending Participation: ? I was present and participated during the entire ? procedure, including non-blackwell portions. ? Gabriel Hilario MD 06/19/2021 4:58:35 PM This report has been signed electronically. Number of Addenda: 0 Note Initiated On: 06/19/2021 4:12 PM Specimen (Source) Anatomical Collection Method Collection Time Re ceived Time Location / / Volume Laterality 06/19/2021 4:12 PM EDT William [facility] Performing Organization Address City/State/ZIP Code Phon e Number [employer] documented in this encounter Visit Diagnoses Not on filedocumented in this encounter Administered Medications Inactive Administered Medications - up to 3 most recent administrations Medication Order MAR Action Action Date Dose Rate Site lactated ringers infusion New Bag 06/19/2021 2:48 PM EDT 1,000 mLs 100 mL/hr 1,000 mL, at 100 mL/hr, Intravenous, CONTINUOUS, Starting on Yanet 06/19/21 at 1445, Until Yanet 06/19/21 at 1741, Day of Surgery (Day of Procedure) documented in this encounter Active and Recently Administered Medications Times are shown in EDT. Continuous Medication Order 06/17/2021 06/18/2021 06/19/2021 lactated ringers infusion (CANCELED) [id number] (New Bag - Provider: Maricruz Gay RN) 1,000 mL, at 100 mL/hr, Intravenous, CON TINUOUS, Starting on Yanet 06/19/21 at 1445, Until Yanet 06/19/21 at 1741, Day of Surgery (Day of Procedure) documented in this encounter Care Teams Team Assistant Relationship Specialty Start Date End Date William Wade PA PCP - General Family Medicine 08/31/[address] [place] [address] [place] [address] documented as of this encounter
--- OUTSIDE RECORDS SUMMARY | 2021-11-07 00:55 | XMS_ITS | Encounter Summary ---
:1955 Author Organization [facility] [place] [address] Care Team Providers Name Role Phone William Wade Primary Care Provider Encounter Details Date Type Department Care Team Description 05/30/2021 Hospital Encounter Hematology and Anemia, unspecified Oncology at [facility] [place] [address] Social History Tobacco Use Types Packs/Day [...] place to sleep or slept in a half-way (including now)? Sex Assigned at Date Recorded [...] metoprolol succinate 100 MG = 1 0 07/25/2008 07/10/2021 (TOPROL-XL) 100 mg XL Tablet(s), PO, Once tablet daily documented as of this encounter Plan of Treatment Upcoming Encounters Date Type Specialty Care Team Description 11/07/2021 Office Visit Hematology and Oncology Eric Streeter MD [facility] ONCOLOGY [place], [place] [address] (Luz fofana) 11/07/2021 Infusion Hematology and Oncology 11/07/2021 Office Visit Hematology and Oncology Irena Hinojosa RD [facility] DRIVE HEMATOLOGY [place], [place] 0375 (Luz rk) 11/21/2021 Office Visit Hematology and Oncology Eric Streeter MD [facility] ONCOLOGY [place], [place] [address] (Luz fofana) 11/21/2021 Infusion Hematology and Oncology 12/05/2021 Office Visit Hematology and Oncology Eric Streeter MD [facility] [address] ONCOLOGY [place] 0[address] (Wo rk) 12/05/2021 Infusion Hematology and Oncology 12/19/2021 Office Visit Hematology and Oncology Eric Streeter MD [facility] ONCOLOGY [place] [address] (Wo rk) 12/19/2021 Infusion Hematology and Oncology documented as of this encounter Procedures Procedure Name Priority Date/Time Associated Comments Diagnosis HEMOGRAM Routine 05/30/2021 11:59 Anemia, unspecified Resu lts for this AM EST type procedure are i n the results section. DIFFERENTIAL, Routine 05/30/2021 11:59 Anemia, unspecified Res ults for this AUTOMATED AM EST type procedure are i n the results section. HC RETIC,AUTO INCLUDES Routine 05/30/2021 11:59 Anemia, unspec ified Results for this RETHE & IRF AM EST type procedure are i n the results section. HC CBC,PLT & AUTO DIFF Routine 05/30/2021 11:59 Anemia, unspec ified AM EST type HC FOLATE, SERUM Routine 05/30/2021 11:59 Anemia, unspecified Results for this AM EST type procedure are i n the results section. HC VITAMIN B12 SERUM Routine 05/30/2021 11:59 Anemia, unspecif ied Results for this AM EST type procedure are i n the results section. COMPREHENSIVE Routine 05/30/2021 11:59 Anemia, unspecified Res ults for this METABOLIC PANEL AM EST type procedure ar e in (NON-FASTING) the results section. documented in this encounter Results Differential, Automated (05/30/2021 11:59 AM EST) P athologist Signature Neutrophils % 57.5 % [facility]OR[facility]ORY Neutr Abs (ANC) 4.24 1.70 - [facility] 6.10 [facility] x10(3)/[facility] LABORATORY Lymphocytes % 32.9 % [facility] Lymphocytes Abs 2.4 0.9 - 3.2 [facility] x10(3)/[facility] LABORATORY Monocytes % 7.7 % [facility] Monocyte Abs 0.6 0.3 - 0.9 [facility] x10(3)/[facility] LABORATORY Eosinophils % 1.4 % [facility] Eosinophils Abs 0.1 0.0 - 0.4 [facility] x10(3)/[facility] LABORATORY Basophils % 0.4 % [facility] Basophils Abs 0.0 0.0 - 0.1 [facility] x10(3)/[facility] LABORATORY Immature Gran % 0.10 % [facility] Comment: Immature granulocytes(IG's)percentage an d absolute count will include metamyelocytes, myelocytes, and promyelo cytes. Blood smears from CBCs yielding IG's will be scanned manually for concor dance. If this scan disagrees with the automated IG or if promyelocytes are not ed, a manual differential will be performed. Neda Gran Abs 0.01 0.00 - 0.04 x10(3)/[facility] LABORATORY Specimen Anatomical Collection Method Collection Time Receive d Time (Source) Location / / Volume Laterality Blood 05/30/2021 11:59 05/30/2021 AM EST 12:20 PM EST Resulting Agency Comment Spec In Lab Sergey Cook MD HEMATOLOGY ORDERABLES Performing Organization Address City/State/[place] [address] (ABNORMAL) Hemogram (05/30/2021 11:59 AM EST) [facility] gist Method Time Signature WBC 7.4 4.0 - 9.5 [facility] x10(3)/[facility] LABORATORY RBC 3.60 (L) 4.58 - [facility] 5.54 [facility] x10(6)/[facility] LABORATORY Hemoglobin 13.0 (L) 13.7 - [facility] g/dL [facility] Hematocrit 37.8 (L) 40.5 - [facility] 48.5 % [facility] MCV 105.0 (H) 82.9 - [facility] 93.1 fL [facility] MCH 36.1 (H) 27.5 - [facility]ALJ[facility] SCHRADER 32.1 pg [facility] MCHC 34.4 32.0 - [facility] RACIEL 35.7 g/dL [facility] Platelets 146 145 - 357 [facility] x10(3)/[facility] LABORATORY RDWSD 48.4 (H) 36.0 - KAMALJ[facility] RACIEL 45.0 [facility] LABORATORY RDWCV 12.4 11.4 - [facility] 13.8 % [facility] MPV 11.1 7.6 - 12.9 [facility] LABORATORY nRBC % Auto 0.0 % [facility] nRBC Abs Auto 0.000 0.000 - [facility] 0.000 [facility] x10(3)/[facility] LABORATORY Specimen Anatomical Collection Method Collection Time Receive d Time (Source) Location / / Volume Laterality Blood 05/30/2021 11:59 05/30/2021 AM EST 12:20 PM EST Resulting Agency Comment Spec In Lab Sergey Cook MD HEMATOLOGY ORDERABLES Performing Organization Address City/State/ZIP Code Phon e Number [address] Vitamin B12 (05/30/2021 11:59 AM EST) athologist Signature Vitamin B-12 418 232 - 1,245 [facility] pg/mL [facility] Specimen Anatomical Collection Method Collection Time Receive d Time (Source) Location / / Volume Laterality Blood 05/30/2021 11:59 05/30/2021 AM EST 12:20 PM EST Resulting Agency Comment Spec In Lab Sergey Cook MD CHEMISTRY ORDERABLES Performing Organization Address City/State/ZIP [facility] Phon e Number [address] Reticulocyte Count (05/30/2021 11:59 AM EST) P athologist Signature Retic Ct % 1.1 0.7 - 2.6 [facility] LABORATORY Retic Ct Abs 0.040 0.030 - [facility] RACIEL 0.120 [facility] x10(6)/[facility] LABORATORY Immature Retic% 6.5 0.0 - 15.6 [facility] K [facility] LABORATORY Reticulated Hgb 40.1 31.3 - [facility]ALJ[facility] RUBINCK 40.2 pg [facility] LABOR[facility]ORY Specimen Anatomical Collection Method Collection Time Receive d Time (Source) Location / / Volume Laterality Blood 05/30/2021 11:59 05/30/2021 AM EST 12:20 PM EST Resulting Agency Comment Spec In Lab Sergey Cook MD HEMATOLOGY ORDERABLES Performing Organization Address City/[facility]/ZIP Code Phon e Number [address] Folate, serum (05/30/2021 11:59 AM EST) P athologist Signature Folate Lvl 15.7 4.8 - 24.2 [facility] ng/mL [facility] Specimen Anatomical Collection Method Collection Time Receive d Time (Source) Location / / Volume Laterality Blood 05/30/2021 11:59 05/30/2021 AM EST 12:20 PM EST Resulting Agency Comment Spec In Lab Sergey Cook MD CHEMISTRY ORDERABLES Performing Organization Address City/[facility]/ZIP Code Phon e Number [address] Comprehensive metabolic panel (non-fasting) (05/30/2021 11:59 AM EST) P athologist Signature Glucose Lvl 143 65 - 199 [facility] mg/dL [facility] Comment: Diabetes: >=200 mg/dL plus symp toms BUN 20 10 - 20 mg/dL [facility] LABORATORY Creatinine 1.01 0.80 - 1.50 mg/dL [facility] LABORATORY Sodium 138 135 - 145 mmol/L [facility] LAB[facility]ORY Potassium 4.7 3.5 - 5.0 mmol/L [facility] Comment: Please note: ??Patients with WBC >100,00 0 may have falsely elevated Potassium levels. ??For accurate Potassium quantif ication in these patients send serum separator tube (gold top) for subsequent determinations. ??Contact the Clinical Chemistry Laboratory if there are any qu estions. Chloride 104 98 - 107 mmol/L [facility] CO2 26 22 - 31 mmol/L [facility] Anion Gap 8 5 - 15 mmol/L [facility] Calcium 9.3 8.5 - 10.5 mg/dL [facility] Total Protein 6.7 6.1 - 8.0 g/dL [facility] LABORATORY Albumin 4.0 3.2 - 5.2 g/dL [facility] AST 17 0 - 39 unit/L [facility] ALT 14 0 - 55 unit/L [facility] Alk Phos 74 40 - 130 unit/L [facility] Total Bilirubin 0.7 0.2 - 1.3 mg/dL [facility] Estimated GFR 77 >=60 mL/min/1.73 m?? [facility] Comment: This patient? [...] Organization Address City/State/[place] [address] documented in this encounter Visit Diagnoses Diagnosis Anemia, unspecified type Malignant neoplasm of head of pancreas documented in this encounter Care Teams Inpatient Auditor Relationship Specialty Start Date End Date William Wade PA PCP - General Family Medicine 08/31/[address] [place] [address] [place] [address] documented as of this encounter
--- OUTSIDE RECORDS SUMMARY | 2021-11-07 00:55 | XMS_ITS | Encounter Summary ---
:1955 Author Organization [facility] [place] [address] Care Team Providers Name Role Phone William Wade Primary Care Provider Reason for Referral Consultation (Routine) - Closed Specialty Diagnoses / Procedures Referred By Contact Refer red To Contact Gastroenterology Diagnoses Other chronic pancreatitis Weight loss William Wade PA [facility] [place] [address] [place] [address] Phone: Fax: Referral ID Status Reason Start Date Expiration Date Visits V isits Requested Authorized [id number] Closed Consult, 08/22/2021 08/22/2022 1 1 Test & Treat Encounter Details Date Type Department Care Team Description 08/22/2021 Transcribe Orders eDH Incoming [place] Other chronic pancreatitis; Referrals Weight loss [phone] Social History Tobacco Use Types Packs/Day Years [...] Oncology Eric Streeter MD [facility] [address], [place] 0[address] (Wo rk) 11/07/2021 Infusion Hematology and Oncology 11/07/2021 Office Visit Hematology and Oncology Irena Hinojosa RD [facility] HEMATOLOGY AND O NCOLOG[place]URAL [place], [place] 0[address] (Wo rk) 11/21/2021 Office Visit Hematology and Oncology Eric Streeter MD [facility] [address], [place] [address] (Wo rk) 11/21/2021 Infusion Hematology and Oncology 12/05/2021 Office Visit Hematology and Oncology Eric Streeter MD [facility] ONCOLOGY [place], [place] 0[address] (Wo rk) 12/05/2021 Infusion Hematology and Oncology 12/19/2021 Office Visit Hematology and Oncology Eric Streeter MD [facility] ER ONCOLOGY [place], [place] 0375 (Wo rk) 12/19/2021 Infusion Hematology and Oncology Scheduled Referrals Name Type Priority Associated Order Schedule Diagnoses Referral to Outpatient Routine Other chronic Ordered: Gastroenterology Referral pancreatitis 08/22/2021 Weight loss documented as of this encounter Visit Diagnoses Diagnosis Other chronic pancreatitis Weight loss Loss of weight Malignant neoplasm of head of pancreas documented in this encounter Care Teams Painter [employer] Car Relationship Specialty Start Date End Date William Wade PA PCP - General Family Medicine 08/31/[address] [place] [address] [place] [address] documented as of this encounter
--- OUTSIDE RECORDS SUMMARY | 2021-11-07 00:55 | XMS_ITS | Encounter Summary ---
:1955 Author Organization [facility] Address [facility] [place] [address] Care Team Providers Name Role Phone William Wade Primary Care Provider Encounter Details Date Type Department Care Team Description 06/10/2021 Orders Only General Surgery at [facility] Scooby Stevens MD [facility] [place] [address] GENERAL SURGERY [phone] [place], [place] [address] (Wo rk) Social History Tobacco [...] place to sleep or slept in a correction (including now)? Sex Assigned at Date Recorded Not on file documented as of this encounter Plan of Treatment Upcoming Encounters Date Type Specialty Care Team Description 11/07/2021 Office Visit Hematology and Oncology Eric Streeter MD [facility] ONCOLOGY [place], [place] 0[address] (Wo rk) 11/07/2021 Infusion Hematology and Oncology 11/07/2021 Office Visit Hematology and Oncology Irena Hinojosa RD [facility] DRIVE HEMATOLOGY AND [place], [place] 0375 (Wo rk) 11/21/2021 Office Visit Hematology and Oncology Eric Streeter MD [facility] ONCOLOGY [place], [place] 0375 (Wo rk) 11/21/2021 Infusion Hematology and Oncology 12/05/2021 Office Visit Hematology and Oncology Eric Streeter MD [facility] ONCOLOGY [place], [place] 0375 (Wo rk) 12/05/2021 Infusion Hematology and Oncology 12/19/2021 Office Visit Hematology and Oncology Eric Streeter MD [facility] ONCOLOGY [place], [place] 0375 (Wo rk) 12/19/2021 Infusion Hematology and Oncology documented as of this encounter Visit Diagnoses Not on filedocumented in this encounter Care Teams Exec. Creative Director Relationship Specialty Start Date End Date William Wade PA PCP - General Family Medicine 08/31/[address] [place] [address] [place] [address] documented as of this encounter
--- OUTSIDE RECORDS SUMMARY | 2021-11-07 00:55 | XMS_ITS | Encounter Summary ---
:1955 Author Organization [facility] [place] [address] Care Team Providers Name Role Phone William Wade Primary Care Provider Reason for Referral Diagnostic Test (Routine) - New Request Specialty Diagnoses / Procedures Referred By Contact Refer red To Contact Diagnoses Carotid stenosis, asymptomatic, bilateral Sylvia Larson APRN [facility] Vascular Lab 3v Procedures Carotid Duplex, Bilateral [facility] [place] [address] [place] [address] Referral ID Status Reason Start Expiration Visits Visits Date Date Requested Authorized [id number] New Request Specialty 10/06/2021 10/06/2022 1 1 Service Requested Encounter Details Date Type Department Care Team Description 10/06/2021 Office Visit Vascular Surgery at Sylvia Larson Caro timulugeta stenosis, [facility] [place] asymptomatic, [facility] [address] [place], [place] VASCULAR SURGERY [address] [place] [address] [phone] Social History Tobacco Use Types Packs/Day Years [...] Sign Reading Time Taken Comments Blood Pressure 109/35 10/06/2021 1:31 PM EDT Pulse 63 10/06/2021 1:31 PM EDT Temperature - - Respiratory Rate 16 10/06/2021 1:31 PM EDT Oxygen Saturation - - Inhaled Oxygen Concentration - - Weight 52.6 kg (115 lb 14.4 oz) 10/06/2021 1:31 PM EDT Height 165.1 cm (5' 5) 10/06/2021 1:31 PM EDT Body Mass Index 19.29 10/06/2021 1:31 PM EDT documented in this encounter Progress Notes Sylvia Larson APRN - 10/06/2021 1:30 PM EDT Reason for Visit: F/U carotid stenosis Interval Hx: 65 year old male with PMH: NSTEMI 2009 with stent palced, HLD and carotid stenosis who presents to clinic today for f/u surveillance. He was seen by Dr. Deleon 1 year ago. Patient remains asymptomatic, no TIA, stroke symptoms. Denies claudication, rest pain, tissue loss, CP or SOB. Continues to take ASA and Statin, is current every day smoker. No hospitalizations or surgeries since last exam. Pt does have new jaundice and weight loss and has been diagnosed with a bile duct obstruction, pancreatitis with lesions and an abdominal tumor noted on CT scan. He has follow-up tomorrow. PMHx: No past medical history on file. PSxHx: Past Surgical History: Procedure Laterality Date ? ? PRO DIAGNOSTIC BONE MARROW BIOPSIES & ASPIRATIONS Left 10/24/2018 ([facility]) BONE MARROW BIOPSY AND ASPIRATION; DIAGNOSTIC performed by Sergey Cook MD at [facility] OSC ??? PRO ENDOSCOPIC US EXAM, BECKIE N/A 06/19/2021 UPPER EUS- ENDOSCOPIC ULTRASOUND performed by Gabriel Hilario MD at [facility] ENDOSCOPY Family Hx: No family history on file. Social Hx: Social History Tobacco Use ??? Smoking status: Current Every Day Smoker Packs/day: 0.50 Types: Cigarettes ??? Smokeless tobacco: Never Used ??? Tobacco comment: knows he will have to quit Substance Use Topics ??? Alcohol use: Yes Comment: about 3 times a year Medications: Medications 10/06/21 1343 Medication Sig Taking? metoprolol succinate XL (Toprol-XL) 25 mg Tablet Sustained Release 24 hr Take by mouth daily. Yes acetaminophen (Tylenol) 500 mg Tablet Take 1,000 mg by [...] daily. Yes atorvastatin (LIPITOR) 80 mg Tablet 40 mg. Yes metFORMIN (GLUCOPHAGE) 850 mg Tablet 2 times daily. Yes nitroGLYcerin (NITROSTAT) 0.[address] under the tongue. Yes Allergies: No Known Allergies Review of Systems: Constitutional (weight change, fever) - Denies Neuro (dizziness, seizures, numbness, tingling) - Denies Eyes (vision) - Denies Ears, nose, throat (hearing) - Denies Cardiovascular (CP) - Denies Respiratory (SOB) - Denies GI (abd pain, nausea, emesis, blood in stool) - See HPI (hematuria, dysuria, frequency) - Denies Muscoloskeletal (extremity pain, weakness) - Denies Skin (ulcers, rashes) - Denies All other ROS negative Physical Exam: Vitals: Patient Vitals for the past 24 hrs: Pulse Resp BP 10/06/21 1331 63 16 (!) 109/35 Gen: No acute distress. HEENT: Normocephalic, atraumatic. Heart: Regular rate and rhythm. (+) S1/S2. 3/6 systolic murmur. Lungs: Regular respiratory rate with no increased work of breathing. Clear to auscultation bilaterally. Vascular Exam: R L Carotid 2/2 bruit (-) 2/2 bruit (+) Radial 2/2 2/2 Skin: normal Digits/Nails: No evidence of clubbing, cyanosis, ischemia, or tissue loss. Musculoskeletal: Gait - normal, no notable motor sensory deficits on gross examination. Psych: AAOx3, mood/affect congruent Labs/Studies: Carotid duplex 10/06/2021 Findings: ICA Proximal, Right ?PSV (cm/s): 149 ?EDV (cm/s): 31 ?ICA/CCA: 1.4 ?Plaque Structure: Echogenic ?Plaque Surface: Irregular ?%Stenosis: 16-49% ICA Distal, Right ?PSV (cm/s): 107 ?EDV (cm/s): 25 ?ICA/CCA: 1.0 CCA Distal, Right ?PSV (cm/s): 108 ?EDV (cm/s): 19 ?%Stenosis: Minimal CCA Proximal, Right ?PSV (cm/s): 129 ?EDV (cm/s): 19 External Carotid Artery, Right ?PSV (cm/s): 294 ?EDV (cm/s): 21 ?%Stenosis: >50% Vertebral, Right ?PSV (cm/s): 65 ?EDV (cm/s): 17 ?Direction of Flow: Antegrade ICA Proximal, Left ?PSV (cm/s): 370 ?EDV (cm/s): 98 ?ICA/CCA: 3.0 ?Plaque Structure: Echogenic ?Plaque Surface: Irregular ?%Stenosis: 60-79% ICA Distal, Left ?PSV (cm/s): 108 ?EDV (cm/s): 32 ?ICA/CCA: 0.9 CCA Distal, Left ?PSV (cm/s): 122 ?EDV (cm/s): 17 ?%Stenosis: Minimal CCA Proximal, Left ?PSV (cm/s): 120 ?EDV (cm/s): 19 External Carotid Artery, Left ?PSV (cm/s): 270 ?EDV (cm/s): 28 ?%Stenosis: >50% Vertebral, Left ?PSV (cm/s): 86 ?EDV (cm/s): 19 ?Direction of Flow: Antegrade ?? Interpretation: RIGHT: There is bulky irregular plaque in the proximal internal carotid artery causing 16-49% stenosis when compared to the more distal internal carotid artery. The bifurcation level is in the mid neck. No significant change compared to previous exam 09/13/2020. ?? LEFT: There is bulky irregular plaque in the carotid bifurcation and proximal internal carotid artery causing 60-79% stenosis when compared to the more distal internal carotid artery. Mild progression compared to previous exam 09/13/2020 The bifurcation level is in the mid neck. ?? Vertebral Artery Data: Patent vertebral arteries with normal antegrade Doppler waveforms and velocities bilaterally. ?? Previous Carotid Studies: Date ?RIGHT ICA Stenosis ??PSV ?? Ratio ?? LEFT ICA Stenosis ?? PSV ?? Ratio ? 16-49% ? 78 ?1.10 ? 16-49% ? 99 ?0.90 ? 16-49% ? 120 ?? 1.50 ? 50-69% ? 302 ?? 3.40 ? 16-49% ? 137 ?? 1.50 ? 50-69% ? 321 ?? 3.50 Current Exam ? 16-49% ? 149 ?? 1.40 ? 50-79% ? 370 ?? 3.00 Impression: 65 year old with with PMH: NSTEMI 2008 with stent palced, HLD and asymptomatic carotid stenosis. Doing well, no stroke TIA symptoms, no hospitalizations or surgeries since last exam. New possible cancer diagnosis being worked up. Carotid duplex today with stable right ICA stenosis, slight progression on left, PSV 370 (prev 321) and ratio 3.00 ( prev 3.50) I encouraged him to continue taking an aspirin and a statin and try his best to cut back on his smoking habit. Follow-up in 1 year with a repeat carotid duplex. Sylvia Larson APRN Department of Vascular Surgery documented in this encounter Plan of Treatment Upcoming Encounters Date Type Specialty Care Team Description 11/07/2021 Office Visit Hematology and Oncology Eric Streeter MD [facility] DR ONCOLOGY [place], [place] 0[address] (Wo rk) 11/07/2021 Infusion Hematology and Oncology 11/07/2021 Office Visit Hematology and Oncology Irena Hinojosa RD [facility] DRIVE HEMATOLOGY [place], [place] [address]375 (Wo rk) 11/21/2021 Office Visit Hematology and Oncology Eric Streeter MD [facility] ONCOLOGY [place], [place] 0375 (Wo rk) 11/21/2021 Infusion Hematology and Oncology 12/05/2021 Office Visit Hematology and Oncology Eric Streeter MD [facility] DR ONCOLOGY [place], [place] 0375 (Wo rk) 12/05/2021 Infusion Hematology and Oncology 12/19/2021 Office Visit Hematology and Oncology Eric Streeter MD [facility] DR ONCOLOGY [place], [place] 0375 (Wo rk) 12/19/2021 Infusion Hematology and Oncology documented as of this encounter Visit Diagnoses Diagnosis Carotid stenosis, asymptomatic, bilatera l Malignant neoplasm of head of pancreas documented in this encounter Care Teams Oil Tank Car Cleaner Relationship Specialty Start Date End Date William Wade PA PCP - General Family Medicine 08/31/[address] [place] [address] [place] [address] documented as of this encounter
--- OUTSIDE RECORDS SUMMARY | 2021-11-07 00:55 | XMS_ITS | Encounter Summary ---
:1955 Author Organization [facility] [place] [address] Care Team Providers Name Role Phone William Wade Primary Care Provider Reason for Referral Diagnostic Test (Routine) - Closed Specialty Diagnoses / Procedures Referred By Contact Refer red To Contact Diagnoses Carotid stenosis, asymptomatic, bilateral Hanh Rondon APRN [facility] Vascular Lab 3v Procedures Carotid Duplex, Bilateral [facility] [place] [address] [place] [address] Referral ID Status Reason Start Date Expiration Date Visits V isits Requested Authorized [id number] Closed Test Only 09/13/2020 09/13/2021 1 1 Encounter Details Date Type Department Care Team Description 09/13/2020 Office Visit Vascular Surgery at Hanh [address]ondon [address] enosis of carotid artery, unspecified laterality; [facility] [employer] Carotid stenosis, asymptomatic, bilatera l [facility] [place] VASCULAR SURGERY [id number] [place] [address] (Wo rk) Social History Tobacco Use Types [...] Sign Reading Time Taken Comments Blood Pressure 136/62 09/13/2020 3:07 PM EDT Pulse 53 09/13/2020 3:06 PM EDT Temperature - - Respiratory Rate - - Oxygen Saturation - - Inhaled Oxygen Concentration - - Weight 59 kg (130 lb) 09/13/2020 3:06 PM EDT reported Height 165.1 cm (5' 5) 09/13/2020 3:06 PM EDT Body Mass Index 21.63 09/13/2020 3:06 PM EDT documented in this encounter Progress Notes Hanh Rondon, SUYAPA - 09/13/2020 3:30 PM EDT Reason for Visit: F/U carotid stenosis Interval Hx: 65 year old male who presents to clinic today for f/u carotid stenosis. He was seen by Dr. Deleon 1 year ago. Patient remains asymptomatic, no TIA, stroke symptoms. No hospitalizations or surgeries since last exam. Feels well, no claudication, rest pain, tissue loss, CP or SOB. Continues to take ASA and Statin, is current every day smoker. ASA Atorvastatin 80mg PMHx: No past medical history on file. PSxHx: Past Surgical History: Procedure Laterality Date ? ? PRO DIAGNOSTIC BONE MARROW BIOPSIES & ASPIRATIONS Left 10/24/2018 ([facility]) BONE MARROW BIOPSY AND ASPIRATION; DIAGNOSTIC performed by Sergey Cook MD at [facility] Family Hx: No family history on file. Social Hx: Social History Tobacco Use ??? Smoking status: Current Every Day Smoker Packs/day: 1.50 Types: Cigarettes ??? Smokeless tobacco: Never Used ??? Tobacco comment: knows he will have to quit Substance Use Topics ??? Alcohol use: Not on file Medications: Medications 11/24/19 1355 Medication Sig Taking? tamsulosin (Flomax) 0.4 mg Capsule Take 0.4 mg by mouth daily. losartan (Cozaar) 25 mg Tablet TK 1 AND 03/23 TS PO QD aspirin EC 81 mg Tablet, Delayed Release (E.C.) Take 81 mg by mouth daily. atorvastatin (LIPITOR) 80 mg Tablet metFORMIN (GLUCOPHAGE) 850 mg Tablet 2 times daily. nitroGLYcerin (NITROSTAT) 0.4 mg SL tablet 0.4 MG = 1 Tablet(s), Sublingual, PRN chest pressure Patient not taking: No sig reported metoprolol succinate (TOPROL-XL) 100 mg XL tablet 100 MG = 1 Tablet(s), PO, Once daily Patient taking differently: Take 25 mg by mouth 2 times daily. Allergies: No Known Allergies Review of Systems: Constitutional (weight change, fever) - Denies Neuro (dizziness, seizures, numbness, tingling) - Denies Eyes (vision) - Denies Ears, nose, throat (hearing) - Denies Cardiovascular (CP) - Denies Respiratory (SOB) - Denies GI (abd pain, nausea, emesis, blood in stool) - Denies (hematuria, dysuria, frequency) - Denies Muscoloskeletal (extremity pain, weakness) - denies Skin (ulcers, rashes) - denies All other ROS negative Physical Exam: Vitals: No data found. Gen: No acute distress. HEENT: Normocephalic, atraumatic. Heart: Regular rate and rhythm. (+) S1/S2. No murmurs Lungs: Regular respiratory rate with no increased work of breathing. Clear to auscultation bilaterally. Vascular Exam: R L Carotid 2/2 bruit (-) 2/2 bruit (+) Radial 2/2 2/2 Skin: normal Digits/Nails: No evidence of clubbing, cyanosis, ischemia, or tissue loss. Musculoskeletal: Gait - normal, no notable motor sensory deficits on gross examination. Psych: AAOx3, mood/affect congruent Labs/Studies: Carotid duplex 09/13/2020 Findings: ?? ICA Proximal, Right ?PSV (cm/s): 137 ?EDV (cm/s): 25 ?ICA/CCA: 1.5 ?Plaque Structure: Echogenic ?Plaque Surface: Irregular ?%Stenosis: 16-49% ICA Distal, Right ?PSV (cm/s): 132 ?EDV (cm/s): 32 ?ICA/CCA: 1.4 CCA Distal, Right ?PSV (cm/s): 94 ?EDV (cm/s): 18 ?%Stenosis: Minimal CCA Proximal, Right ?PSV (cm/s): 103 ?EDV (cm/s): 17 External Carotid Artery, Right ?PSV (cm/s): 216 ?EDV (cm/s): 22 ?%Stenosis: >50% Vertebral, Right ?PSV (cm/s): 71 ?EDV (cm/s): 14 ?Direction of Flow: Antegrade ICA Proximal, Left ?PSV (cm/s): 321 ?EDV (cm/s): 64 ?ICA/CCA: 3.5 ?Plaque Structure: Echogenic ?Plaque Surface: Irregular ?%Stenosis: 50-69% ICA Distal, Left ?PSV (cm/s): 112 ?EDV (cm/s): 28 ?ICA/CCA: 1.2 CCA Distal, Left ?PSV (cm/s): 92 ?EDV (cm/s): 21 ?%Stenosis: Minimal CCA Proximal, Left ?PSV (cm/s): 115 ?EDV (cm/s): 18 External Carotid Artery, Left ?PSV (cm/s): 239 ?EDV (cm/s): 29 ?%Stenosis: >50% Vertebral, Left ?PSV (cm/s): 70 ?EDV (cm/s): 16 ?Direction of Flow: Antegrade ? Interpretation: ?? RIGHT: A thin layer of circumferential plaque is present in the common carotid artery causing minimal stenosis. There is bulky irregular plaque in the proximal internal carotid artery causing 16-49% stenosis when compared to the more distal internal carotid artery. The bifurcation level is in the mid neck. No identifiable change when compared to the previous exam performed on 07/28/2019. ?? LEFT: A thin layer of circumferential plaque is present in the common carotid artery causing minimal stenosis. There is bulky irregular plaque in the proximal internal carotid artery causing 50-69% stenosis when compared to the more distal internal carotid artery. The bifurcation level is in the mid neck. Slight increase in the internal carotid artery PSV's when compared to the previous exam performed on 07/28/2019. ? Vertebral Artery Data: Patent vertebral arteries with [...] 1.50 ? 50-69% ? 321 ?? 3.50 ?Impression: 65 year old with asymptomatic carotid stenosis. Doing well, no stroke TIA symptoms, nohospitalizations or surgeries since last exam. Doing well. Carotid duplex today with stable right ICA stenosis, slight progression on left, PSV 321 (prev 302) and ratio 3.50 ( prev 3.40) I encouraged him to continue taking an aspirin and a statin and try his best to cut back on his smoking habit. I will see him back in 1 year with a repeat carotid duplex. documented in this encounter Plan of Treatment Upcoming Encounters Date Type Specialty Care Team Description 11/07/2021 Office Visit Hematology and Oncology Eric Streeter MD [facility] ONCOLOGY [place], [place] [address] (Wo rk) 11/07/2021 Infusion Hematology and Oncology 11/07/2021 Office Visit Hematology and Oncology Irena Hinojosa RD [facility] [place] H[place]ATOLOGY AND [place], [place] 0[address] (Wo rk) 11/21/2021 Office Visit Hematology and Oncology Eric Streeter MD [facility] ONCOLOGY [place], [place] [address] (Wo rk) 11/21/2021 Infusion Hematology and Oncology 12/05/2021 Office Visit Hematology and Oncology Eric Streeter MD [facility] [address] [place], [place] [address] (Wo rk) 12/05/2021 Infusion Hematology and Oncology 12/19/2021 Office Visit Hematology and Oncology Eric Streeter MD [facility] ONCOLOGY [place], [place] [address] (Wo rk) 12/19/2021 Infusion Hematology and Oncology documented as of this encounter Results Carotid Duplex, Bilateral (10/06/2021 12:10 PM EDT) Component Value Ref Test Analysis Performed At [facility] gist Range Method Time Signature VB Text Department: Vascular Surgery Lab [facility] Report Patient: [id number] (JOHN DUARTE) CPT: 33202 Referring Physician: HANH RONDON ?? Indications: following carotid disease, ? progression [...] Volume Laterality 10/06/2021 12:10 PM EDT Hanh Rondon APRN VASCULAR ORDERABLES Performing Organization Address City/State/ZIP Code Phon e Number [email or web address] documented in this encounter Visit Diagnoses Diagnosis Stenosis of carotid artery, unspecified laterality Carotid stenosis, asymptomatic, bilatera l Malignant neoplasm of head of pancreas documented in this encounter Care Teams Privacy Officer Relationship Specialty Start Date End Date William Wade PA PCP - General Family Medicine 08/31/[address] [place] [address] [place] [address] documented as of this encounter
--- OUTSIDE RECORDS SUMMARY | 2021-11-07 00:55 | XMS_ITS | Encounter Summary ---
:1955 Author Organization [place] [address] Care Team Providers Name Role Phone William Wade Primary Care Provider Encounter Details Date Type Department Care Team Description 09/29/2021 Telephone Gastroenterology at [facility] [place] [facility] [place] [address] Social History Tobacco Use Types Packs/Day [...] Visit Hematology and Oncology Eric Streeter MD [facility] [address] [place], [place] [address] (Wo rk) 11/07/2021 Infusion Hematology and Oncology 11/07/2021 Office Visit Hematology and Oncology Irena Hinojosa RD [facility] DRIVE [place], [place] 0[address] (Wo rk) 11/21/2021 Office Visit Hematology and Oncology Eric Streeter MD [facility] [address] [place], [place] [address] (Wo rk) 11/21/2021 Infusion Hematology and Oncology 12/05/2021 Office Visit Hematology and Oncology Eric Streeter MD [facility] [address] [place], [place] [address] (Wo rk) 12/05/2021 Infusion Hematology and Oncology 12/19/2021 Office Visit Hematology and Oncology Eric Streeter MD [facility] [address] [place], [place] [address] (Wo rk) 12/19/2021 Infusion Hematology and Oncology documented as of this encounter Visit Diagnoses Not on filedocumented in this encounter Care Teams Honeycomb Decapper Relationship Specialty Start Date End Date William Wade PA PCP - General Family Medicine 08/31/[address] [place] [address] [place] [address] documented as of this encounter
--- OUTSIDE RECORDS SUMMARY | 2021-11-07 00:55 | XMS_ITS | Encounter Summary ---
:1955 Author Organization [place] [address] Care Team Providers Name Role Phone William Wade Primary Care Provider Reason for Visit Consultation (Routine) - Closed Specialty Diagnoses / Procedures Referred By Contact Refer red To Contact Hematology and Oncology Diagnoses Nutritional anemia, unspecified MACROCYTIC ANEMIA William Wade, [facility] [place] [address] [place] [phone] Fax: Referral ID Status Reason Start Date Expiration Date Visits V isits Requested Authorized [id number] Closed Consult, Test 08/23/2019 08/22/2020 [facility] PCP Updated and/or Approved Encounter Details Date Type Department Care Team Description 11/24/2019 Hospital Encounter Hematology and Anemia, unspecified Oncology at [facility] [place] [address] Social History Tobacco Use Types Packs/Day [...] by 0 0 11/03/2021 Tablet mouth daily. metoprolol succinate 100 MG = 1 0 07/25/200809/19 (TOPROL-XL) 100 mg XL Tablet(s), PO, tablet Once daily documented as of this encounter Plan of Treatment Upcoming Encounters Date Type Specialty Care Team Description 11/07/2021 Office Visit Hematology and Oncology Eric Streeter MD [facility] DR ONCOLOGY [place], [place] [address] (Wo rk) 11/07/2021 Infusion Hematology and Oncology 11/07/2021 Office Visit Hematology and Oncology Irena Hinojosa RD [facility] HEMATOLOGY AND O NCOLOGY [place], [place] [address] (Wo rk) 11/21/2021 Office Visit Hematology and Oncology Eric Streeter MD [facility] ONCOLOGY [place], [place] 0[address] (Wo rk) 11/21/2021 Infusion Hematology and Oncology 12/05/2021 Office Visit Hematology and Oncology Eric Streeter MD [facility] ONCOLOGY [place], [place] [address] (Wo rk) 12/05/2021 Infusion Hematology and Oncology 12/19/2021 Office Visit Hematology and Oncology Eric Streeter MD [facility] ONCOLOGY [place], [place] 0[address] (Wo rk) 12/19/2021 Infusion Hematology and Oncology documented as of this encounter Procedures Procedure Name Priority Date/Time Associated Comments Diagnosis HEMOGRAM Routine 11/24/2019 1:15 PM Anemia, unspecified Re sults for this EDT type procedure are i n the results section. DIFFERENTIAL, Routine 11/24/2019 1:15 PM Anemia, unspecified R esults for this AUTOMATED EDT type procedure are i n the results section. HC RETIC,AUTO INCLUDES Routine 11/24/2019 1:15 PM Anemia, unsp ecified Results for this RETHE & IRF EDT type procedure are i n the results section. HC CBC,PLT & AUTO DIFF Routine 11/24/2019 1:15 PM Anemia, unsp ecified EDT type HC VENIPUNCTURE Routine 11/24/2019 1:15 PM Anemia, unspecified Results for this EDT type procedure are i n the results section. HC VITAMIN B12 SERUM Routine 11/24/2019 1:15 PM Anemia, unspec ified Results for this EDT type procedure are i n the results section. COMPREHENSIVE Routine 11/24/2019 1:15 PM Anemia, unspecified R esults for this METABOLIC PANEL EDT type procedure ar e in (NON-FASTING) the results section. documented in this encounter Results Differential, Automated (11/24/2019 1:15 PM EDT) athologist Signature Neutrophils % 63.9 % [facility] Neutr Abs (ANC) 5.52 1.70 - [facility] 6.10 [facility] x10(3)/[facility] LABORATORY Lymphocytes % 27.5 % [facility] Lymphocytes Abs 2.4 0.9 - 3.2 [facility] x10(3)/[facility] LABORATORY Monocytes % 6.6 % [facility] Monocyte Abs 0.6 0.3 - 0.9 [facility] x10(3)/[facility] LABORATORY Eosinophils % 1.3 % [facility] Eosinophils Abs 0.1 0.0 - 0.4 [facility] x10(3)/[facility] LABORATORY Basophils % 0.5 % [facility] Basophils Abs 0.0 0.0 - 0.1 [facility] x10(3)/[facility] LABORATORY Immature Gran % 0.20 % [facility] Comment: Immature granulocytes(IG's)percentage an d absolute count will include metamyelocytes, myelocytes, and promyelo cytes. Blood smears from CBCs yielding IG's will be scanned manually for concor dance. If this scan disagrees with the automated IG or if promyelocytes are not ed, a manual differential will be performed. Neda Gran Abs 0.02 0.00 - 0.04 x10(3)/[facility] Y [facility] LABORATORY Specimen Anatomical Collection Method Collection Time Receive d Time (Source) Location / / Volume Laterality Blood specimen 11/24/2019 1:15 PM 020 1:18 (specimen) EDT PM EDT Resulting Agency Comment Spec In Lab Sergey Cook MD HEMATOLOGY ORDERABLES Performing Organization Address City/State/[place] [address] (ABNORMAL) Hemogram (11/24/2019 1:15 PM EDT) Patholo gist Method Time Signature WBC 8.6 4.0 - 9.5 [facility] x10(3)/[facility] LABORATORY RBC 3.93 (L) 4.58 - [facility] 5.54 [facility] x10(6)/[facility] LABORATORY Hemoglobin 14.0 13.7 - [facility] 16.5 gm/dL [facility] LABORATORY Hematocrit 41.7 40.5 - KAMALJIT SCHRADER 48.5 % [facility] LABORATORY MCV 106.1 (H) 82.9 - [facility] 93.1 [facility] LABORATORY MCH 35.6 (H) 27.5 - KAMALJIT RACIEL 32.1 pg [facility] LABORATORY MCHC 33.6 32.0 - [facility] 35[facility] gm/dL [facility] Platelets 175 145 - 357 [facility] x10(3)/[facility] LABORATORY RDWSD 46.9 (H) 36.0 - [facility] 45.0 [facility] LABORATORY RDWCV 11.9 11.4 - [facility] 13.8 % [facility] LABORATORY MPV 10.6 7.6 - 12.9 [facility] LABORATORY nRBC % Auto 0.0 % [facility] nRBC Abs Auto 0.000 0.000 - [facility] 0.000 [facility] x10(3)/[facility] LABORATORY Specimen Anatomical Collection Method Collection Time Receive d Time (Source) Location / / Volume Laterality Blood specimen 11/24/2019 1:15 PM 020 1:18 (specimen) EDT PM EDT Resulting Agency Comment Spec In Lab Sergey Cook MD HEMATOLOGY ORDERABLES Performing Organization Address City/State/[place] [address] Comprehensive metabolic panel (non-fasting) (11/24/2019 1:15 PM EDT) P athologist Signature Glucose Lvl 111 65 - 199 [facility] mg/dL [facility] Comment: Diabetes: >=200 mg/dL plus symp toms BUN 18 10 - 20 mg/dL [facility] LABORATORY Creatinine 1.10 0.80 - 1.50 mg/dL [facility] LABORATORY Sodium 135 135 - 145 mmol/L [facility] LABORATORY Potassium 4.2 3.5 - 5.0 mmol/L [facility] Comment: Please note: ??Patients with WBC >100,00 0 may have falsely elevated Potassium levels. ??For accurate Potassium quantif ication in these patients send serum separator tube (gold top) for subsequent determinations. ??Contact the Clinical Chemistry Laboratory if there are any qu estions. Chloride 102 98 - 107 mmol/L [facility] CO2 22 22 - 31 mmol/L [facility] Anion Gap 11 5 - 15 mmol/L [facility]ORY Calcium 9.0 8.5 - 10.5 mg/dL [facility] Total Protein 6.9 6.1 - 8.0 gm/dL [facility] Albumin 3.9 3.2 - 5.2 gm/dL [facility] AST 18 0 - 39 unit/L [facility] ALT 9 0 - 55 unit/L [facility] LABOR[facility]ORY Alk Phos 76 40 - 130 unit/L [facility] Total Bilirubin 0.4 0.2 - 1.3 mg/dL [facility] LABORATORY Estimated GFR 70 >=60 mL/min/1.73 m?? [facility] Comment: The eGFR was calculated using the CKD-EP I equation. As with all creatinine based estimates of kidney function, eGFR values calculated with the CKD-EPI equation are not accurate in patients wi th acute kidney failure, extremes of body mass or the acutely ill. [email or web address] eGFR 81 >=60 mL/min/1.73 m?? [facility] Comment: The eGFR was calculated using the CKD-EP I equation. As with all creatinine based estimates of kidney function, eGFR values calculated with the CKD-EPI equation are not accurate in patients wi th acute kidney failure, extremes of body mass or the acutely ill. [email or web address]AMInkf Specimen Anatomical Collection Method Collection Time Receive d Time (Source) Location / / Volume Laterality Blood specimen 11/24/2019 1:15 PM 020 1:18 (specimen) EDT PM EDT Resulting Agency Comment Spec In Lab Sergey Cook MD CHEMISTRY ORDERABLES Performing Organization Address City/[facility]/ZIP Code Phon e Number [address] Reticulocyte Count (11/24/2019 1:15 PM EDT) athologist Signature Retic Ct % 0.8 0.7 - 2.6 [facility] % [facility] LABORATORY Retic Ct Abs 0.030 0.030 - [facility] 0.120 [facility] x10(6)/[facility] LABORATORY Immature Retic% 4.3 0.0 - 15.6 [facility] % [facility] LABORATORY Reticulated Hgb 38.6 31.3 - [facility] 40.2 pg [facility] LABORATORY Specimen Anatomical Collection Method Collection Time Receive d Time (Source) Location / / Volume Laterality Blood specimen 11/24/2019 1:15 PM 020 1:18 (specimen) EDT PM EDT Resulting Agency Comment Spec In Lab Sergey Cook MD HEMATOLOGY ORDERABLES Performing Organization Address City/[facility]/ZIP Code Phon e Number [address] Vitamin B12 (11/24/2019 1:15 PM EDT) athologist [facility] Vitamin B-12 432 232 - 1,245 [facility] pg/mL [facility] LABORATORY Specimen Anatomical Collection Method Collection Time Receive d Time (Source) Location / / Volume Laterality Blood specimen 11/24/2019 1:15 PM 020 1:18 (specimen) EDT PM EDT Resulting Agency Comment Spec In Lab Sergey Cook MD CHEMISTRY ORDERABLES Performing Organization Address City/[facility]/ZIP Code Phon e Number [address] Folate, serum (11/24/2019 1:15 PM EDT) athologist Signature Folate Lvl 13.7 4.8 - 24.2 [facility] ng/mL [facility] LABOR[facility]ORY Specimen Anatomical Collection Method Collection Time Receive d Time (Source) Location / / Volume Laterality Blood specimen 11/24/2019 1:15 PM 020 1:18 (specimen) EDT PM EDT Resulting Agency Comment Spec In Lab Sergey Cook MD CHEMISTRY ORDERABLES Performing Organization Address City/State/[place] [address] documented in this encounter Visit Diagnoses Diagnosis Anemia, unspecified type Malignant neoplasm of head of pancreas documented in this encounter Care Teams Complaint Supervisor Relationship Specialty Start Date End Date William Wade PA PCP - General Family Medicine 08/31/[address] [place] [address] [place] [address] documented as of this encounter
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
--- OUTSIDE RECORDS SUMMARY | 2021-11-07 00:55 | XMS_ITS | Encounter Summary ---
:1955 [address] [facility] [place] [address] Care Team Providers Name Role Phone William Wade Primary Care Provider Encounter Details Date Type Department Care Team Description 06/07/2021 Ancillary Procedure Radiology Library at Kain Cook [facility] Jhon [facility] [place] [address] [place] [address] [phone] (Wo rk) Social History Tobacco Use Types [...] Streeter MD [facility] ONCOLOGY [place], [place] [address] (Wo rk) 11/07/2021 Infusion Hematology and Oncology 11/07/2021 Office Visit Hematology and Oncology Irena Hinojosa RD [facility] HEMATOLOGY AND O NCOLOGY [place], [place] [address] (Wo rk) 11/21/2021 Office Visit Hematology and Oncology Eric Streeter MD [facility] ONCOLOGY [place], [place] [address] (Wo rk) 11/21/2021 Infusion Hematology and Oncology 12/05/2021 Office Visit Hematology and Oncology Eric Streeter MD [facility] ONCOLOGY [place], [place] [address] (Wo rk) 12/05/2021 Infusion Hematology and Oncology 12/19/2021 Office Visit Hematology and Oncology Eric Streeter MD [facility] ONCOLOGY [place], [place] [address] (Wo rk) 12/19/2021 Infusion Hematology and Oncology documented as of this encounter Procedures Procedure Name Priority Date/Time Associated Diagnosis Comme nts FILM LIBRARY Routine 06/07/2021 12:00 AM Results for this STORAGE ONLY CT EDT procedure ar e in ABDOMEN AND PELVIS the resul ts section. documented in this encounter Results Film Library- Storage Only CT Abdomen & Pelvis (06/07/2021 12:00 AM EDT) Specimen (Source) Anatomical Location Collection Method / Collectio n Time Received Time / Laterality Volume Narrative RAD - 06/10/2021 10:47 AM EDT This exam is auto-finalizing. It's purpo se is for storage only. Sergey Cook MD IMG FILM LIBRARY ORDERABLES Performing Organization Address City/State/ZIP Code Phon e Number [place], [place] documented in this encounter Visit Diagnoses Not on filedocumented in this encounter Care Teams Rubber Goods Inspector Relationship Specialty Start Date End Date William Wade PA PCP - General Family Medicine 08/31/[address] [place] [address] [place] [address] documented as of this encounter
--- OUTSIDE RECORDS SUMMARY | 2021-11-07 00:55 | XMS_ITS | Encounter Summary ---
:1955 Author Organization [facility] [place] [address] Care Team Providers Name Role Phone William Wade Primary Care Provider Reason for Visit Reason Comments Follow-up Encounter Details Date Type Department Care Team Description 05/30/2021 Office Visit Hematology and Sergey Cook Anemia, unspecified [place] [facility] [place] Jhon type [facility] [address] [place], [place] [phone] Social History Tobacco Use Types Packs/Day Years [...] Sign Reading Time Taken Comments Blood Pressure 118/44 05/30/2021 1:07 PM EST Pulse 57 05/30/2021 1:07 PM EST Temperature 36.1 ??C (97 ??F) 05/30/2021 1:07 PM EST Respiratory Rate 16 05/30/2021 1:07 PM EST Oxygen Saturation 98% 05/30/2021 1:07 PM EST Inhaled Oxygen Concentration - - Weight 58.6 kg (129 lb 3.2 oz) 05/30/2021 1:07 PM EST Height 166.2 cm (5' 5.43) 05/30/2021 1:07 PM EST Body Mass Index 21.22 05/30/2021 1:07 PM EST documented in this encounter Progress Notes Sergey Cook MD - 05/30/2021 1:30 PM EST OUTPATIENT HEMATOLOGY/ ONCOLOGY CONSULTATION HISTORY PRESENT ILLNESS [...] has been well. No new issues. No fevers/ chills/ infections. He has been cutting back on smoking. No ETOH. 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 tamsulosin (Flomax) 0.4 mg [...] MG = 1 Tablet(s), PO, Once daily Yes acetaminophen (Tylenol) 500 mg Tablet Take 1,000 mg by mouth every 6 hours as needed for Pain (migraine). ibuprofen (Advil;Motrin) 200 mg Tablet Take 200 mg by mouth every 6 hours as needed for Pain (migraine). nitroGLYcerin (NITROSTAT) 0.4 mg SL tablet 0.4 [...] 24 hrs: Temp Pulse Resp BP SpO2 05/30/21 1307 36.1 ??C (97 ??F) 57 16 118/44 98 % NAD, pleasant, thin but healthy [...] (non-fasting) Result Value Ref Range Glucose Lvl 143 65 - 199 mg/dL BUN 20 10 - 20 mg/dL Creatinine 1.01 0.80 - 1.50 mg/dL Sodium 138 135 - 145 mmol/L Potassium 4.7 3.5 - 5.0 mmol/L Chloride 104 98 - 107 mmol/L CO2 26 22 - 31 mmol/L Anion Gap 8 5 - 15 mmol/L Calcium 9.3 8.5 - 10.5 mg/dL Total Protein 6.7 6.1 - 8.0 g/dL Albumin 4.0 3.2 - 5.2 g/dL AST 17 0 - 39 unit/L ALT 14 0 - 55 unit/L Alk Phos 74 40 - 130 unit/L Total Bilirubin 0.7 0.2 - 1.3 mg/dL Estimated GFR 77 >=60 mL/min/1.73 m?? Reticulocyte Count Result Value Ref Range Retic Ct % 1.1 0.7 - 2.6 % Retic Ct Abs 0.040 0.030 - 0.120 x10(6)/mcL Immature Retic% 6.5 0.0 - 15.6 % Reticulated Hgb 40.1 31.3 - 40.2 pg Hemogram Result Value Ref Range WBC 7.4 4.0 - 9.5 x10(3)/mcL RBC 3.60 (L) 4.58 - 5.54 x10(6)/mcL Hemoglobin 13.0 (L) 13.7 - 16.5 g/dL Hematocrit 37.8 (L) 40.5 - 48.5 % MCV 105.0 (H) 82.9 - 93.1 fL MCH 36.1 (H) 27.5 - 32.1 pg MCHC 34.4 32.0 - 35.7 g/dL Platelets 146 145 - 357 x10(3)/mcL RDWSD 48.4 (H) 36.0 - 45.0 fL RDWCV 12.4 11.4 - 13.8 % MPV 11.1 7.6 - 12.9 fL nRBC % Auto 0.0 % nRBC Abs Auto 0.000 0.000 - 0.000 x10(3)/mcL Differential, Automated Result Value Ref Range Neutrophils % 57.5 % Neutr Abs (ANC) 4.24 1.70 - 6.10 x10(3)/mcL Lymphocytes % 32.9 % Lymphocytes Abs 2.4 0.9 - 3.2 x10(3)/mcL Monocytes % 7.7 % Monocyte Abs 0.6 0.3 - 0.9 x10(3)/mcL Eosinophils % 1.4 % Eosinophils Abs 0.1 0.0 - 0.4 x10(3)/mcL Basophils % 0.4 % Basophils Abs 0.0 0.0 - 0.1 x10(3)/mcL Immature Gran % 0.10 % Neda Gran Abs 0.01 0.00 - 0.04 x10(3)/mcL RADIOGRAPHIC EVALUATION As above PATHOLOGY EVALUATION Reviewed Bone marrow biopsy in BM conference with pathology and heme teams ASSESSMENT: Jeff Duarte is a 65 y.o. male presents with significant macrocytosis without anemia,in the setting of unexplained weight loss. He had a similar MCV roughly 10 yrs ago. Peripheral bloodtesting for vitamins, reticulocytosis, etc has been unrevealing. Bone marrow was unremarkable except for hypocellularity (10-20%). Mild anemia in setting of a moderately hypocellular marrow of unknown cause. I think there is a small risk that this is an evolving process moving towards aplastic anemia, but at this point he has been stable for over a year. We have been monitoring him and there haven't been any changes. I think it is fine for Jeff to continue yearly to q 6 month monitoring of his CBC. If hgb drops below 11.5, I would be happy to see him back, but I think that will be unlikely. In that event, the next step would be repeating the marrow. Sergey Cook MD Pager: [phone] 05/30/2021 documented in this encounter Plan of Treatment Upcoming Encounters Date Type Specialty Care Team Description 11/07/2021 Office Visit Hematology and Oncology Eric Streeter MD [facility] DR ONCOLOGY [place], [place] [address] (Wo rk) 11/07/2021 Infusion Hematology and Oncology 11/07/2021 Office Visit Hematology and Oncology Irena Hinojosa RD [facility] [address] [place] [address] (Wo rk) 11/21/2021 Office Visit Hematology and Oncology Eric Streeter MD [facility] ONCOLOGY [place], [place] [address] (Wo rk) 11/21/2021 Infusion Hematology and Oncology 12/05/2021 Office Visit Hematology and Oncology Eric Streeter MD [facility] ONCOLOGY [place], [place] [address] (Wo rk) 12/05/2021 Infusion Hematology and Oncology 12/19/2021 Office Visit Hematology and Oncology Eric Streeter MD [facility] DR ONCOLOGY [place], [place] [address] (Wo rk) 12/19/2021 Infusion Hematology and Oncology documented as of this encounter Visit Diagnoses Diagnosis Anemia, unspecified type Malignant neoplasm of head of pancreas documented in this encounter Care Teams Sociology Instructor Relationship Specialty Start Date End Date William Wade PA PCP - General Family Medicine 08/31/[address] [place] [address] [place] [address] documented as of this encounter
--- OUTSIDE RECORDS SUMMARY | 2021-11-07 00:55 | XMS_ITS | Encounter Summary ---
:1955 Author Organization [facility] Address [place] [phone] Care Team Providers Name Role Phone William Wade Primary Care Provider Encounter Details Date Type Department Care Team Description 06/10/2021 Transcribe Orders eD Incoming William Wade Pancrea tic mass Referrals LIBRADO Santiago (Primary Dx) [phone] [place] [address] [address] [place] [phone] Social History Tobacco Use Types Packs/Day Years [...] place to sleep or slept in a jail (including now)? Sex Assigned at Date Recorded Not on file documented as of this encounter Miscellaneous Notes Addendum Note - Charlotte Chavez - 06/10/2021 1:51 PM EDT Addended by: CHARLOTTE CHAVEZ on: 06/12/2021 11:50 AM Modules accepted: Orders documented in this encounter Plan of Treatment Upcoming Encounters Date Type Specialty Care Team Description 11/07/2021 Office Visit Hematology and Oncology Eric Streeter MD [facility] [address] [place], [place] [address] (Wo rk) 11/07/2021 Infusion Hematology and Oncology 11/07/2021 Office Visit Hematology and Oncology Irena Hinojosa RD [facility] HEMATOLOGY AND O [place], [place] [address] (Wo rk) 11/21/2021 Office Visit Hematology and Oncology Eric Streeter MD [facility] [place], [place] [address] (Wo rk) 11/21/2021 Infusion Hematology and Oncology 12/05/2021 Office Visit Hematology and Oncology Eric Streeter MD [facility] [address] [place], [place] [address] (Wo rk) 12/05/2021 Infusion Hematology and Oncology 12/19/2021 Office Visit Hematology and Oncology Eric Streeter MD [facility] [address] [place], [place] [address] (Wo rk) 12/19/2021 Infusion Hematology and Oncology documented as of this encounter Visit Diagnoses Diagnosis Pancreatic mass - Primary Unspecified disease of pancreas Malignant neoplasm of head of pancreas documented in this encounter Care Teams Global Creative Chairman Relationship Specialty Start Date End Date William Wade PA PCP - General Family Medicine 08/31/[address] [place] [address] [place] [id number] documented as of this encounter
--- OUTSIDE RECORDS SUMMARY | 2021-11-07 00:55 | XMS_ITS | Encounter Summary ---
:1955 [place] [address] Care Team Providers Name Role Phone William Wade Primary Care Provider Reason for Visit Reason Onset Date Comments Medication Refill 06/19/2021 Encounter Details Date Type Department Care Team Description 06/19/2021 Refill Gastroenterology at [facility] Spenser Isidro MD [facility] [place] [address] GASTROENEROLOGY [phone] [place], [place] [address] (Wo rk) Social History Tobacco [...] Eric Streeter MD [facility] ONCOLOGY [place], [place] [address] (Wo rk) 11/07/2021 Infusion Hematology and Oncology 11/07/2021 Office Visit Hematology and Oncology Irena Hinojosa RD [facility] [address] H[place]OLOG[place] [address] (Wo rk) 11/21/2021 Office Visit Hematology and Oncology Eric Streeter MD [facility] [address] [place], [place] [address] (Wo rk) 11/21/2021 Infusion Hematology and Oncology 12/05/2021 Office Visit Hematology and Oncology Eric Streeter MD [facility] [address] [place], [place] [address] (Wo rk) 12/05/2021 Infusion Hematology and Oncology 12/19/2021 Office Visit Hematology and Oncology Eric Streeter MD [facility] ONCOLOGY [place], [place] [address] (Wo rk) 12/19/2021 Infusion Hematology and Oncology documented as of this encounter Visit Diagnoses Not on filedocumented in this encounter Care Teams Inspector Advanced Composite Relationship Specialty Start Date End Date William Wade PA PCP - General Family Medicine 08/31/[address] [place] [address] [place] [address] documented as of this encounter
--- OUTSIDE RECORDS SUMMARY | 2021-11-07 00:55 | XMS_ITS | Encounter Summary ---
:1955 Author Organization [facility] [address] Care Team Providers Name Role Phone William Wade Primary Care Provider Encounter Details Date Type Department Care Team Description 07/04/2020 Telephone Vascular Surgery at [facility] Luz Hernandez [facility] [place] [address] Social History Tobacco Use Types Packs/Day [...] this encounter Miscellaneous Notes Telephone Encounter - Luz Hernandez - 07/04/2020 10:22 AM EDT Recall: Thea Hurtado carotid dup- Carotid Stenosis, 1yr f/up 07/04/20 lm x1 w female MK documented in this encounter Plan of Treatment Upcoming Encounters Date Type Specialty Care Team Description 11/07/2021 Office Visit Hematology and Oncology Eric Streeter MD [facility] [address] [place], [place] [address] (Wo rk) 11/07/2021 Infusion Hematology and Oncology 11/07/2021 Office Visit Hematology and Oncology Irena Hinojosa RD [facility] DR[facility] [place] [address] (Wo rk) 11/21/2021 Office Visit Hematology and Oncology Eric Streeter MD [facility] [address] [place], [place] [address] (Wo rk) 11/21/2021 Infusion Hematology and Oncology 12/05/2021 Office Visit Hematology and Oncology Eric Streeter MD [facility] [address] [place], [place] [address] (Wo rk) 12/05/2021 Infusion Hematology and Oncology 12/19/2021 Office Visit Hematology and Oncology Eric Streeter MD [facility] [address] [place], [place] [address] (Wo rk) 12/19/2021 Infusion Hematology and Oncology documented as of this encounter Visit Diagnoses Not on filedocumented in this encounter Care Teams Work Manager Relationship Specialty Start Date End Date William Wade PA PCP - General Family Medicine 08/31/[address] [place] [address] [place] [address] documented as of this encounter
--- OUTSIDE RECORDS SUMMARY | 2021-11-07 00:55 | XMS_ITS | Encounter Summary ---
:1955 Author Organization [facility] [place] [address] Care Team Providers Name Role Phone William Wade Primary Care Provider Encounter Details Date Type Department Care Team Description 10/01/2021 Orders Only Gastroenterology at [facility] Gabriel Hilario Jaundice (Primary Dx); [facility] Nelson Ferreira [place] B[place] [address] [facility] [phone] [place] [address] Social History Tobacco Use Types Packs/Day Years [...] documented as of this encounter Progress Notes Gabriel Hilario MD - 10/01/2021 10:31 AM EDT I called him with CT results and will arrange an EUS and ERCP this week. documented in this encounter Plan of Treatment Upcoming Encounters Date Type Specialty Care Team Description 11/07/2021 Office Visit Hematology and Oncology Eric Streeter MD [facility] [address] [place], [place] [address] ( rk) 11/07/2021 Infusion Hematology and Oncology 11/07/2021 Office Visit Hematology and Oncology Irena Hinojosa RD [facility] [place] [address] (Wo rk) 11/21/2021 Office Visit Hematology and Oncology Eric Streeter MD [facility] [address] [place], [place] [address] (Wo rk) 11/21/2021 Infusion Hematology and Oncology 12/05/2021 Office Visit Hematology and Oncology Eric Streeter MD [facility] [address] [place], [place] [address] (Wo rk) 12/05/2021 Infusion Hematology and Oncology 12/19/2021 Office Visit Hematology and Oncology Eric Streeter MD [facility] ONCOLOGY [place], [place] [address] (Wo rk) 12/19/2021 Infusion Hematology and Oncology Scheduled Orders Name Type Priority Associated Diagnoses Order S chedule ENDOSCOPY CASE Procedures Routine Jaundice Ordered: 10/01/2021 REQUEST: ERCP, UPPER Biliary obstruction EUS- ENDOSCOPIC ULTRASOUND documented as of this encounter Visit Diagnoses Diagnosis Jaundice - Primary Jaundice, unspecified, not of Biliary obstruction Obstruction of bile duct Malignant neoplasm of head of pancreas documented in this encounter Care Teams Director Information Relationship Specialty Start Date End Date William Wade PA PCP - General Family Medicine 08/31/[address] [place] [address] [place] [address] documented as of this encounter
--- OUTSIDE RECORDS SUMMARY | 2021-11-07 00:55 | XMS_ITS | Encounter Summary ---
:1955 Author Organization [facility] [place] [address] Care Team Providers Name Role Phone William Wade Primary Care Provider Encounter Details Date Type Department Care Team Description 10/01/2021 Telephone Gastroenterology at [facility] [place] [address] Social History Tobacco Use Types Packs/Day [...] Streeter MD [facility] [address] [place], [place] [address] (Wo rk) 11/07/2021 Infusion Hematology and Oncology 11/07/2021 Office Visit Hematology and Oncology Irena Hinojosa RD [facility] DR[facility] [place]OLOGY [place], [place] [address] (Wo rk) 11/21/2021 Office Visit Hematology and Oncology Eric Streeter MD [facility] [address] [place], [place] [address] (Wo rk) 11/21/2021 Infusion Hematology and Oncology 12/05/2021 Office Visit Hematology and Oncology Eric Streeter MD [facility] [address] [place], [place] [address] (Wo rk) 12/05/2021 Infusion Hematology and Oncology 12/19/2021 Office Visit Hematology and Oncology Eric Streeter MD [facility] [address] [place], [place] [address] (Wo rk) 12/19/2021 Infusion Hematology and Oncology documented as of this encounter Visit Diagnoses Not on filedocumented in this encounter Care Teams Referral Clerk Relationship Specialty Start Date End Date William Wade PA PCP - General Family Medicine 08/31/[address] [place] [address] [place] [address] documented as of this encounter
--- OUTSIDE RECORDS SUMMARY | 2021-11-07 00:55 | XMS_ITS | Encounter Summary ---
:1955 Author [address] [facility] [place] [address] Care Team Providers Name Role Phone William Wade Primary Care Provider Reason for Referral Diagnostic Test (Emergency) - Closed Specialty Diagnoses / Procedures Referred By Contact Refer red To Contact Radiology Diagnoses Jaundice Biliary obstruction Gabriel Hilario MD [facility] Rad Ct Scan Procedures CT Abdomen w Contrast [facility] [place] [address] [place] [address] Referral ID Status Reason Start Date Expiration Date Visits V isits Requested Authorized [id number] Closed Specialty 09/30/2021 04/02/2023 1 1 Service Requested Reason for Visit Consultation (Routine) - Closed Specialty Diagnoses / Procedures Referred By Contact Refer red To Contact Gastroenterology Diagnoses Other chronic pancreatitis Weight loss William Wade PA [facility] [address] [place] [address] [place] [address] Phone: Fax: Referral ID Status Reason Start Date Expiration Date Visits V isits Requested Authorized [id number] Closed Consult, 08/22/2021 08/22/2022 1 1 Test & Treat Encounter Details Date Type Department Care Team Description 09/30/2021 Office Visit Gastroenterology at [facility] Sulaiman, Gabriel Jaundice (Primary Dx); [facility] Nelson Ferreira [place] B[place] [address] [facility] [phone] CENTER [place] [address] Social History Tobacco Use Types Packs/Day Years [...] Sign Reading Time Taken Comments Blood Pressure 121/49 09/30/2021 3:00 PM EDT Pulse 62 09/30/2021 3:00 PM EDT Temperature - - Respiratory Rate - - Oxygen Saturation - - Inhaled Oxygen Concentration - - Weight 52.6 kg (115 lb 14.4 oz) 09/30/2021 3:00 PM EDT Height - - Body Mass Index 19.29 06/19/2021 2:28 PM EDT documented in this encounter Progress Notes Gabriel Hilario MD - 09/30/2021 2:40 PM EDT Images from the original note were not included. CC: Referred by LIBRADO Mcclendon for further evaluation of weight loss and new onset jaundice. HPI: He is known to me from previous EUS evaluation of the pancreas when he was referred for follow-up of a CT scan on 06/07/21 that was ordered for evaluation of left upper quadrant abdominal pain thatshowed a mildly dilated pancreatic duct at 4 mm and a few small cystic lesions in the pancreas. There was no mention on the CT of a solid mass in the pancreas and a employee's representative image of the pancreasfrom that CT shown here: He underwent an EUS exam on 06/19/2021: - LA Grade B reflux esophagitis with no bleeding, likely reflux related. - Two benign appearing 5-6 mm cystic lesions were seen in the pancreatic body and pancreatic tail associated with mild diffuse pancreatic ductal dilation and parenchymal changes that may reflect mild chronic pancreatitis vs age related change. The small cysts may represent branch duct intraductal papillary mucinous neoplasms but have low risk features. - Inflamed, possible prolapsing duodenal fold. The plan was to perform MRCP in 1 year for surveillance of the pancreas cysts and mild pancreatic duct dilation (can be ordered by PCP). - Start a proton pump inhibitor for reflux. Apparently he was relatively well over the past couple of months but mention that his previously well controlled or borderline diabetes became more problematic and he was begun on insulin. He also mentioned that he has lost a moderate amount of weight and has lost his appetite and at that point a referral was made for an appt here in early August for evaluation of weight loss and the possibility of chronic pancreatitis Coincident with his visit he then recently became jaundiced and saw his PCP and hadthe following laboratory tests performed: He currently denies abdominal pain. He mentioned that his PCP has ordered an MRI of the pancreas but is not scheduled until October 22 in [facility]. He is and lives alone. [place] [facility] [place] He currently smokes less than 1 pack/day. He does not drink alcohol except on rare social occasions. Current Outpatient Medications on File Prior to Visit Medication Sig Dispense Refill ??? acetaminophen (Tylenol) 500 mg Tablet Take 1,000 mg by mouth every 6 hours as needed for Pain (migraine). ??? ibuprofen (Advil;Motrin) 200 mg Tablet Take 200 mg by mouth every 6 hours as needed for Pain (migraine). ??? tamsulosin (Flomax) 0.4 mg Capsule Take 0.4 mg by mouth daily. ??? losartan (Cozaar) 25 mg Tablet Take 25 mg by mouth daily. ??? aspirin EC 81 mg Tablet, Delayed Release (E.C.) Take 81 mg by mouth daily. ??? atorvastatin (LIPITOR) 80 mg Tablet 40 mg. 0 ??? metFORMIN (GLUCOPHAGE) 850 mg Tablet 2 times daily. 0 ??? metoprolol succinate (TOPROL-XL) 100 mg XL tablet 100 MG = 1 Tablet(s), PO, Once daily ??? nitroGLYcerin (NITROSTAT) 0.4 mg SL tablet 0.4 MG = 1 Tablet(s), Sublingual, PRN chest pressure (Patient not taking: No sig reported) No current facility-administered medications on file prior to visit. Patient Active Problem List Diagnosis Code ??? CIS - Dyslipidemia ??? CIS - Non ST elevation myocardial infarction ??? CIS - Tobacco abuse Review of Systems: Constitutional: + weight loss HEENT: no visual changes, no URI symptoms Cardio: no chest pain Resp: no cough, no SOB, no PEREZ or orthopnea Hem/Lymph: no new lumps or bumps on body GI: see HPI : no dysuria Integumentary: no new rashes + jaundice Musculoskeletal: no new joint pains Neuro: no new numbness, weakness in extremities Objective: Physical Exam: Patient Vitals for the past 24 hrs: Pulse BP 09/30/21 1500 62 121/49 Constitutional: Appears thin and obviously jaundiced. Eyes: + scleral icterus. Abdominal: Soft. No distension. No tenderness. No masses or HSM. Assessment and Plan: New onset jaundice associated with anorexia, weight loss and worsening glycemic control with obstructive appearing liver enzymes and a markedly elevated CA 19-9 which is worrisome for either a pancreatic or biliary malignancy. I carefully reviewed his previous CT and EUS exams performed in May which did show a dilated pancreatic duct but we did not visualize a mass in the pancreatic head on either of those studies. There was an inflamed appearing duodenal fold that had a relatively benign appearance. Regardless his current symptoms and jaundice and laboratory tests are worrisome for malignant biliary obstruction. Plan: Will arrange a CT scan of the abdomen pelvis MASOOD. I will see if I can get the study performedtoday while he is here. Further management pending those results. Most of this 45 minute visit spent in review of previous imaging and discussion and coordination of care regarding biliary obstruction. Gabriel Hilario MD station repairer Director, GI Endoscopy Section of Gastroenterology [place] [address] Cc:LIBRADO Mcclendon documented in this encounter Plan of Treatment Upcoming Encounters Date Type Specialty Care Team Description 11/07/2021 Office Visit Hematology and Oncology Eric Streeter MD [facility] ONCOLOGY [place], [place] [address] (Wo rk) 11/07/2021 Infusion Hematology and Oncology 11/07/2021 Office Visit Hematology and Oncology Irena Hinojosa RD [facility] HEMATOLOGY AND O NCOLOGY [place], [place] [address] (Wo rk) 11/21/2021 Office Visit Hematology and Oncology Eric Streeter MD [facility] ONCOLOGY [place], [place] [address] (Wo rk) 11/21/2021 Infusion Hematology and Oncology 12/05/2021 Office Visit Hematology and Oncology Eric Streeter MD [facility] [address] [place], [place] [address] (Wo rk) 12/05/2021 Infusion Hematology and Oncology 12/19/2021 Office Visit Hematology and Oncology Eric Streeter MD [facility] DR ONCOLOGY [place], [place] [address] (Wo rk) 12/19/2021 Infusion Hematology and Oncology documented as of this encounter Results CT Abdomen w Contrast [...] provider that requested your imaging first. ? Electronically signed by: Jeff denney MD, [facility] ([phone]), at 09/30/2021 5:38 PM Narrative 09/30/2021 5:38 [...] image 5 and 7 were outside the [id number] of the prior study with th e [...] image 5 and 7 were outside the [id number] of the prior study with th e [...] daycare provider that requested your imaging first. Electronically signed by: Jeff denney MD, [facility] ([phone]), at 09/30/2021 5:38 PM Gabriel Hilario MD IMG CT ORDERABLES documented in this encounter Visit Diagnoses Diagnosis Jaundice - Primary Jaundice, unspecified, not of Biliary obstruction Obstruction of bile duct Jaundice Jaundice, unspecified, not of Biliary obstruction Obstruction of bile duct Malignant neoplasm of head of pancreas documented in this encounter Care Teams Sap Gatherer Relationship Specialty Start Date End Date William Wade PA PCP - General Family Medicine 08/31/[address] [place] [address] [place] [address] documented as of this encounter
--- OUTSIDE RECORDS SUMMARY | 2021-11-07 00:55 | XMS_ITS | Encounter Summary ---
:1955 Author Organization [facility] [place] [address] Care Team Providers Name Role Phone William Wade Primary Care Provider Encounter Details Date Type Department Care Team Description 11/29/2020 Hospital Encounter Hematology and Anemia, unspecified Oncology at [facility] [place] [address] Social History Tobacco Use Types Packs/Day [...] place to sleep or slept in a prison (including now)? Sex Assigned at Date Recorded [...] succinate 100 MG = 1 0 07/25/2008 07/1 10/2021 (TOPROL-XL) 100 mg XL Tablet(s), PO, Once tablet daily documented as of this encounter Plan of Treatment Upcoming Encounters Date Type Specialty Care Team Description 11/07/2021 Office Visit Hematology and Oncology Eric Streeter MD [facility] ONCOLOGY [place], [place] [address] (Luz fofana) 11/07/2021 Infusion Hematology and Oncology 11/07/2021 Office Visit Hematology and Oncology Irena Hinojosa RD [facility] [place], [place] [address] (Luz rk) 11/21/2021 Office Visit Hematology and Oncology Eric Streeter MD [facility] ONCOLOGY [place], [place] [address] (Luz fofana) 11/21/2021 Infusion Hematology and Oncology 12/05/2021 Office Visit Hematology and Oncology Eric Streeter MD [facility] DR ONCOLOGY [place], [place] [address] (Wo rk) 12/05/2021 Infusion Hematology and Oncology 12/19/2021 Office Visit Hematology and Oncology Eric Streeter MD [facility] ONCOLOGY [place], [place] [address] (Wo rk) 12/19/2021 Infusion Hematology and Oncology documented as of this encounter Procedures Procedure Name Priority Date/Time Associated Diagnosis Comme nts HEMOGRAM Routine 11/29/2020 11:54 Anemia, unspecified Resu lts for this AM EDT type procedure are i n the results section. DIFFERENTIAL, Routine 11/29/2020 11:54 Anemia, unspecified Res ults for this AUTOMATED AM EDT type procedure are i n the results section. HC VENIPUNCTURE Routine 11/29/2020 11:54 Anemia, unspecified AM EDT type documented in this encounter Results Differential, Automated (11/29/2020 11:54 AM EDT) P athologist Signature Neutrophils % 59.1 % [facility] Neutr Abs (ANC) 4.86 1.70 - [facility] 6.10 [facility] x10(3)/[facility] LABORATORY Lymphocytes % 29.7 % [facility] Lymphocytes Abs 2.4 0.9 - 3.2 [facility] x10(3)/[facility] LABORATORY Monocytes % 8.8 % [facility] Monocyte Abs 0.7 0.3 - 0.9 [facility] x10(3)/[facility] LABORATORY Eosinophils % 1.8 % [facility] Eosinophils Abs 0.2 0.0 - 0.4 [facility] x10(3)/[facility] LABORATORY Basophils % 0.5 % [facility] Basophils Abs 0.0 0.0 - 0.1 [facility] x10(3)/[facility] LABORATORY Immature Gran % 0.10 % [facility] Comment: Immature granulocytes(IG's)percentage an d absolute count will include metamyelocytes, myelocytes, and promyelo cytes. Blood smears from CBCs yielding IG's will be scanned manually for concerlinda danjohn. If this scan disagrees with the automated IG or if promyelocytes are not ed, a manual differential will be performed. Neda Gran Abs 0.01 0.00 - 0.04 x10(3)/[facility] Specimen Anatomical Collection Method Collection Time Receive d Time (Source) Location / / Volume Laterality Blood 11/29/2020 11:54 11/29/2020 AM EDT 12:13 PM EDT Resulting Agency Comment Spec In Lab Sergey Cook MD HEMATOLOGY ORDERABLES Performing Organization Address City/State/[place] [address] (ABNORMAL) Hemogram (11/29/2020 11:54 AM EDT) [facility] gist Method Time Signature WBC 8.2 4.0 - 9.5 [facility] x10(3)/[facility] LABORATORY RBC 3.58 (L) 4.58 - [facility] 5.54 [facility] x10(6)/[facility] LABORATORY Hemoglobin 12.8 (L) 13.7 - [facility] 16.5 gm/dL [facility] Hematocrit 37.4 (L) 40.5 - [facility] 48.5 % [facility] MCV 104.5 (H) 82.9 - [facility] 93.1 [facility] LAB[facility] MCH 35.8 (H) 27.5 - [facility]EL 32.1 pg [facility] MCHC 34.2 32.0 - [facility] 35.7 gm/dL [facility] Platelets 150 145 - 357 [facility] x10(3)/[facility] LABORATORY RDWSD 48.9 (H) 36.0 - [facility] 45.0 [facility] LABORATORY RDWCV 12.7 11.4 - [facility] 13.8 % [facility] MPV 11.2 7.6 - 12.9 [facility] LABORATORY nRBC % Auto 0.0 % [facility] nRBC Abs Auto 0.000 0.000 - [facility] 0.000 [facility] x10(3)/[facility] LABORATORY Specimen Anatomical Collection Method Collection Time Receive d Time (Source) Location / / Volume Laterality Blood 11/29/2020 11:54 11/29/2020 AM EDT 12:13 PM EDT Resulting Agency Comment Spec In Lab Sergey Cook MD HEMATOLOGY ORDERABLES Performing Organization Address City/State/[place] [address] documented in this encounter Visit Diagnoses Diagnosis Anemia, unspecified type Malignant neoplasm of head of pancreas documented in this encounter Care Teams Financial Business Analyst Relationship Specialty Start Date End Date William Wade PA PCP - General Family Medicine 08/31/[address] [place] [address] [place] [address] documented as of this encounter
--- OUTSIDE RECORDS SUMMARY | 2021-11-07 00:55 | XMS_ITS | Encounter Summary ---
:1955 Author Organization [facility] Address [facility] [place] [address] Care Team Providers Name Role Phone William Wade Primary Care Provider Encounter Details Date Type Department Care Team Description 06/12/2021 Telephone Gastroenterology at [facility] Hanh Sandhu [facility] [place] [address] Social History Tobacco Use Types Packs/Day [...] this encounter Miscellaneous Notes Telephone Encounter - Hanh Sandhu - 06/12/2021 10:57 AM EDT Jeff Duarte [id number] Diagnosis/Indication: EUS with possible FNA pending findings for mild pancreatic ductal dilation and two small subcentimeter hypoenhancing lesions in pancreas tail; to be within 2 weeks with advanced endoscopist. 1. Have you ever had a/an Upper EUS before? No If yes, did you have any problems with the procedure? No What type of sedation was used: None 2. Do you take any blood thinners or have you been diagnosed with a bleeding disorder that increasesyour risk of bleeding with procedures? No 3. Do you have a Pacemaker or Defibrillator device? No 4. Are you a diabetic? No 5. Do you have any Allergies to Eggs, Latex or Medications? No 6. Do you take any Oral Iron Supplements (Including multi-vitamins)? No 7. Do you have a history of three or more abdominal surgeries? No 8. Have you had a problem with sedation or anesthesia? No 9. Do you use a c-pap machine or oxygen tank? Neither 10. Do you take prescription narcotic pain medications, including suboxone or methodone? No 11. Do you have a preference regarding the gender of your provider? No Preference 12. Is there any other information you would like to us to note for the provider and nursing team who will perform your case? No 13. Say to patient: You must have a responsible libertarian who will drive you to your procedure, stay on campus for the entire duration of your procedure, and drive you home from your procedure? *Please Verify the height and weight, and adjust if height and/or weight have changed* Estimated body mass index is 21.22 kg/m?? as calculated from the following: Height as of 05/30/21: 166.2 cm (5' 5.43). Weight as of 05/30/21: 58.6 kg (129 lb 3.2 oz). *Delete if not needed* Height: 5'5 Weight: 123 BMI: 20.5 Age:66 y.o. documented in this encounter Plan of Treatment Upcoming Encounters Date Type Specialty Care Team Description 11/07/2021 Office Visit Hematology and Oncology Eric Streeter MD [facility] ONCOLOGY [place], [place] [address] (Wo rk) 11/07/2021 Infusion Hematology and Oncology 11/07/2021 Office Visit Hematology and Oncology Irena Hinojosa RD [facility] DRIVE HEMATOLOGY AND [facility] [place] [address] (Wo rk) 11/21/2021 Office Visit Hematology and Oncology Eric Streeter MD [facility] [address] [place], [place] [address] (Wo rk) 11/21/2021 Infusion Hematology and Oncology 12/05/2021 Office Visit Hematology and Oncology Eric Streeter MD [facility] ONCOLOGY [place], [place] [address] (Wo rk) 12/05/2021 Infusion Hematology and Oncology 12/19/2021 Office Visit Hematology and Oncology Eric Streeter MD [facility] ONCOLOGY [place], [place] [address] (Wo rk) 12/19/2021 Infusion Hematology and Oncology documented as of this encounter Visit Diagnoses Not on filedocumented in this encounter Care Teams Combination Building Inspector Relationship Specialty Start Date End Date William Wade PA PCP - General Family Medicine 08/31/[address] [place] [address] [place] [address] documented as of this encounter
--- OUTSIDE RECORDS SUMMARY | 2021-11-07 00:55 | XMS_ITS | Encounter Summary ---
:1955 Author Organization [place] [address] Care Team Providers Name Role Phone William [...] Expiration Date Visits Requ ested Visits Authorized [id number] 1 1 Encounter Details Date Type Department Care Team Description 06/19/2021 Surgery Gastroenterology at [facility] Gabriel Hilario, UPPER EUS- ENDOSCOPIC [facility] Nelson [place] [address] [facility] [phone] GASTRO[address]Y DEPT. [place], [place] [address] Social History Tobacco Use Types [...] Sign Reading Time Taken Comments Blood Pressure 143/59 06/19/2021 2:28 PM EDT Pulse 70 06/19/2021 2:28 PM EDT Temperature 36.9 ??C (98.4 ??F) 06/19/2021 2:28 PM EDT Respiratory Rate 16 06/19/2021 2:28 PM EDT Oxygen Saturation 100% 06/19/2021 2:28 PM EDT Inhaled Oxygen Concentration - - Weight 54.4 kg (120 lb) 06/19/2021 2:28 PM EDT Height 165.1 cm (5' 5) 06/19/2021 2:28 PM EDT Body Mass Index 19.97 06/19/2021 2:28 PM EDT documented in this encounter Discharge Instructions Discharge InstructionsMaricruz Gay RN - 06/19/2021 5:34 PM EDT Endoscopic [...] the day after the procedure, use an vqfn-ggs-derluxh spray to numb your throat. Sucking on [...] occurs, please contact your Doctor. Please call [phone] before 8pm Mon-Fri with problems, questions or concerns. If you call after 8pm or on weekends, call the Hospital at [phone] and ask to speak to the Cyber Threat Analyst marketing information analyst and the hand method lasting machine operator will contact that person for you. When should you call for help? Call 911 anytime you think you may need emergency [...] any problems. Where can you learn more? [facility] View your After Visit Summary and more online at [email or web address] If you would like to provide feedback about your hospital experience, please call the Office of Patient and Family Relations at . If you have received this After Visit Summary in error, please immediately return it in person to the department, or notify the [facility] Privacy Office by calling toll free at between the hours of 8AM and 5PM to arrange for our retrieval of the documents at no cost to you. Content Version: 12.2 ?? [id number] [employer]. Care instructions adapted under license by [facility]. If you have questions about a medical condition or this instruction, always ask your healthcare professional. [employer] disclaims any warranty or liability for your [...] Hilario MD - 06/19/2021 4:25 PM EDT [facility] Operative Note Patient Name: Jfef Duarte : [id number] MR#: [id number] Case Date: 06/19/2021 Surgeon: Surgeon(s) and Role: [...] Streeter MD [facility] ONCOLOGY [place], [place] [address] (Wo rk) 11/07/2021 Infusion Hematology and Oncology 11/07/2021 Office Visit Hematology and Oncology Irena Hinojosa RD [facility] HEMATOLOGY AND O NCOLOGY [place], [place] [address] (Wo rk) 11/21/2021 Office Visit Hematology and Oncology Eric Streeter MD [facility] [place], [place] [address] (Wo rk) 11/21/2021 Infusion Hematology and Oncology 12/05/2021 Office Visit Hematology and Oncology Eric Streeter MD [facility] [place], [place] [address] (Wo rk) 12/05/2021 Infusion Hematology and Oncology 12/19/2021 Office Visit Hematology and Oncology Eric Streeter MD [facility] [place], [place] [address] (Wo rk) 12/19/2021 Infusion Hematology and Oncology documented as of this encounter Procedures Procedure Name Priority Date/Time Associated Diagnosis Comme [facility] UPPER EUS- 06/19/2021 4:18 PM EUS with [...] Performed Pathologis t Range Method Time At [facility] PROVATION ENDOSCOPIC Endoscopy ULTRASOUND _ Procedure Date: 06/19/2021 4:12 PM ? Patient Name: Jeff Duarte ? Date of : 1955 ? Age: 66 ? Order #: [id number] ? Instrument Name: [id number] ? Procedure: ? Upper EUS Indications: ? Dilated pancreatic duct on CT sc an, ? Pancreatic cyst on CT scan Providers: ? Gabriel Hilario MD, Arash Faust ? HENRIETTA Patel, Dali lewis, Nunn ? Emaniar, Spenser Banks MD: ?LIBRADO Ribeiro [...] patient . Return ? to normal activities tomor row. ? Written discharge instruct ions were ? [...] Procedure Code(s): ? --- Professional --- ? 67011, Esophagogastroduode noscopy, ? flexible, transoral; with ? endoscopic ultrasound exam ination, ? including the esophagus, s tomach, ? and either the duodenum or a ? surgically altered stomach where ? the jejunum is examined di stal to ? the anastomosis CPT copyright 2020 [employer]. All rights reserved. The codes documented in this report are preliminary and upon career technical supervisor review may be revised to meet current [...] Procedure) documented in this encounter Care Teams Golf Course Laborer Relationship Specialty Start Date End Date William Wade PA PCP - General Family Medicine 08/31/[address] [place] [address] [place] [address] documented as of this encounter
--- OUTSIDE RECORDS SUMMARY | 2021-11-07 00:55 | XMS_ITS | Encounter Summary ---
:1955 Author Organization [facility] [place] [address] Care Team Providers Name Role Phone William Wade Primary Care Provider Encounter Details Date Type Department Care Team Description 10/06/2021 Tech Visit Vascular [facility] at [facility] [place] [address] Social History Tobacco Use Types Packs/Day [...] Eric Streeter MD [facility] [address] [place], [place] [address] (Wo rk) 11/07/2021 Infusion Hematology and Oncology 11/07/2021 Office Visit Hematology and Oncology Irena Hinojosa RD [facility] DRIVE HEMATOLOGY AND O [place], [place] [address] (Wo rk) 11/21/2021 Office Visit Hematology and Oncology Eric Streeter MD [facility] [address] [place], [place] [address] (Wo rk) 11/21/2021 Infusion Hematology and Oncology 12/05/2021 Office Visit Hematology and Oncology Eric Streeter MD [facility] [address] [place], [place] [address] (Wo rk) 12/05/2021 Infusion Hematology and Oncology 12/19/2021 Office Visit Hematology and Oncology Eric Streeter MD [facility] [address] [place], [place] [address] (Wo rk) 12/19/2021 Infusion Hematology and Oncology documented as of this encounter Procedures Procedure Name Priority Date/Time Associated Diagnosis Comme nts CAROTID DUPLEX, Routine 10/06/2021 12:10 PM Carotid stenosis, Results for this BILATERAL EDT asymptomatic, procedure are in bilateral the results section. documented in this encounter Results Carotid Duplex, Bilateral (10/06/2021 12:10 PM EDT) Component Value Ref Test Analysis Performed At [facility] Range Method Time Signature VB Text Department: Vascular Surgery Lab VASCUBASE Report Patient: [id number] (JOHN DUARTE) CPT: 91501 Referring Physician: HANH RONDON ?? Indications: following [...] documented in this encounter Visit Diagnoses Diagnosis Carotid stenosis, asymptomatic, bilatera l Malignant neoplasm of head of pancreas documented in this encounter Care Teams Director Of Adult Epilepsy Relationship Specialty Start Date End Date William Wade PA PCP - General Family Medicine 08/31/[address] [place] [address] [place] [address] documented as of this encounter
--- OUTSIDE RECORDS SUMMARY | 2021-11-07 00:55 | XMS_ITS | Encounter Summary ---
:1955 Author Organization [facility] [place] [address] Care Team Providers Name Role Phone William Wade Primary Care Provider Encounter Details Date Type Department Care Team Description 10/01/2021 Telephone Gastroenterology at [facility] Caroline [facility]itez [facility] [place] [address] Social History Tobacco Use Types Packs/Day [...] Telephone Encounter - Caroline Benitez - 10/01/2021 12:14 PM EDT Jeff Duarte [id number] Diagnosis/Indication: Pancreas mass/jaundice Please review patient chart to confirm if [...] questions) 1. Have you ever had a/an EUS & ERCP before? Yes: Date 06/19/2021 If yes, did you have any problems [...] to. Yes: Controlled by diet or medication? Both 5. Do you take any iron supplements or vitamins that contain iron? No 6. Do you have a preference regarding the gender of your provider? No ANESTHESIA QUESTIONS (YES to any question, please book with Anesthesia support) 7. Have you ever been diagnosed with any of the following: Pulmonary Hypertension, Atrial Fibrillation (A-Fib) and/or Congential Heart Disease? No had heart attack / has stent 8. Have you ever had an allergic or adverse reaction to Fentanyl or Versed? No 9. Have you had a problem with sedation or anesthesia? (Waking up during procedure, extreme confusion after, etc.) No 10. Do you have a diagnosis of [...] you be interested in scheduling this appointment? No 17. Is there any other information or concerns you would like to us to share with your care team in relation to your upcoming scheduled procedure? No 18. You must have a responsible democrat who will drive you to your procedure, stay on campus for the entire duration of your procedure, and drive you home from your procedure. Who will likely be your vibratory pile driver for the procedure? *Please Verify the height and weight, and adjust if height and/or weight have changed* Estimated body mass index is 19.29 kg/m?? as calculated from the following: Height as of 06/19/21: 165.1 cm (5' 5). Weight as of 09/30/21: 52.6 kg (115 lb 14.4 oz). Age:66 y.o. documented in this encounter Plan of Treatment Upcoming Encounters Date Type Specialty Care Team Description 11/07/2021 Office Visit Hematology and Oncology Eric Streeter MD [facility] ONCOLOGY [place], [place] [address] (Wo rk) 11/07/2021 Infusion Hematology and Oncology 11/07/2021 Office Visit Hematology and Oncology Irena Hinojosa RD [facility] DRIVE HEMATOLOGY AND O NCOLOGY [place], [place] [address] (Wo rk) 11/21/2021 Office Visit Hematology and Oncology Eric Streeter MD [facility] [address] [place], [place] [address] (Wo rk) 11/21/2021 Infusion Hematology and Oncology 12/05/2021 Office Visit Hematology and Oncology Eric Streeter MD [facility] ONCOLOGY [place], [place] [address] (Wo rk) 12/05/2021 Infusion Hematology and Oncology 12/19/2021 Office Visit Hematology and Oncology Eric Streeter MD [facility] ONCOLOGY [place], [place] [address] (Wo rk) 12/19/2021 Infusion Hematology and Oncology documented as of this encounter Visit Diagnoses Not on filedocumented in this encounter Care Teams Studio Designer Relationship Specialty Start Date End Date William Wade PA PCP - General Family Medicine 08/31/[address] [place] [address] [place] [address] documented as of this encounter
--- OUTSIDE RECORDS SUMMARY | 2021-11-07 00:56 | XMS_ITS | Encounter Summary ---
:1955 Author Organization [facility] [place] [address] Care Team Providers Name Role Phone William Wade Primary Care Provider Encounter Details Date Type Department Care Team Description 06/22/2019 Orders Only Vascular Surgery at [facility] enosis of carotid [facility] [employer] SUPERVISOR artery, unspecified [facility] [place] [address] VASCULAR SURGERY [phone] [place], [place] [address] Social History Tobacco Use Types [...] Streeter MD [facility] ONCOLOGY [place], [place] [address] (Wo rk) 11/07/2021 Infusion Hematology and Oncology 11/07/2021 Office Visit Hematology and Oncology Irena Hinojosa RD [facility] DRIVE HEMATOLOGY AND [facility] [place] [address] (Wo rk) 11/21/2021 Office Visit Hematology and Oncology Eric Streeter MD [facility] [place], [place] [address] (Wo rk) 11/21/2021 Infusion Hematology and Oncology 12/05/2021 Office Visit Hematology and Oncology Eric Streeter MD [facility] [place], [place] [address] (Wo rk) 12/05/2021 Infusion Hematology and Oncology 12/19/2021 Office Visit Hematology and Oncology Eric Streeter MD [place], [place] [address] (Wo rk) 12/19/2021 Infusion Hematology and Oncology documented as of this encounter Results Carotid Duplex, Bilateral (07/28/2019 1:20 PM EDT) Component Value Ref Test Analysis Performed At [facility] Range Method Time Signature VB Text Department: Vascular Surgery Lab VASCUBASE Report Patient: [id number] (JOHN DUARTE) CPT: 21159 ICD10: I65.23 Referring Physician: JERRICA REN APRN ?? Phone: Indications: Bilateral carotid stenosis, ? progression ICD10 Diagnosis Code: I65.23 Findings: ICA Proximal, Right ? PSV (cm/s): 120 ? EDV (cm/s): 29 ? ICA/CCA: 1.3 ? Plaque Structure: Echogenic ? Plaque Surface: Irregular ? %Stenosis: 16-49% ICA Distal, Right ? PSV (cm/s): 135 ? EDV (cm/s): 29 ? ICA/CCA: 1.5 CCA Distal, Right ? PSV (cm/s): 89 ? EDV (cm/s): 16 ? %Stenosis: Minimal CCA Proximal, Right ? PSV (cm/s): 94 ? EDV (cm/s): 16 External Carotid Artery, Right ? PSV (cm/s): 199 ? EDV (cm/s): 11 ? %Stenosis: Near 50% Vertebral, Right ? PSV (cm/s): 64 ? EDV (cm/s): 12 ? Direction of Flow: Antegrade ICA Proximal, Left ? PSV (cm/s): 302 ? EDV (cm/s): 72 ? ICA/CCA: 3.4 ? Plaque Structure: Echogenic ? Plaque Surface: Irregular ? %Stenosis: 50-69% ICA Middle, Left ? PSV (cm/s): 100 ? EDV (cm/s): 29 ? ICA/CCA: 1.1 ICA Distal, Left ? PSV (cm/s): 112 ? EDV (cm/s): 29 ? ICA/CCA: 1.2 CCA Distal, Left ? PSV (cm/s): 90 ? EDV (cm/s): 15 ? %Stenosis: <50% CCA Proximal, Left ? PSV (cm/s): 96 ? EDV (cm/s): 17 External Carotid Artery, Left ? PSV (cm/s): 183 ? EDV (cm/s): 13 ? %Stenosis: <50% Vertebral, Left ? PSV (cm/s): 64 ? EDV (cm/s): 16 ? Direction of Flow: Antegrade Interpretation: RIGHT: There is irregular plaque in the proximal internal ca rotid artery causing 16-49% stenosis when compared to the more distal int ernal carotid artery. The bifurcation leve l is in the mid neck. No significant change compared to previous exam. LEFT: There is bulky irregular plaque in the pro ximal internal carotid artery causing 50-69% stenosis when compared to the more distal int ernal carotid artery. The bifurcation level is in the mid neck. Significant progression when compared to the previous exam. Vertebral Artery Data: Patent vertebral arteries with normal antegrade Doppler waveforms and velocities bilaterally. Previous Carotid Studies: Date ?RIGHT ICA St enosis ??PSV ?? Ratio ?? LEFT ICA Stenosis ?? PSV ?? Ratio ? 16-49% ? 78 ?1.10 ? 16-49% ? 99 ?0.90 Current Exam ? 16-49% ? 120 ?? 1.50 ? 50-69% ? 302 ?? 3.40 Electronically Signed by: MARIANO COTO on 2019-07-31 12:14:02 PM VB Text End of Report VASCUBASE Report Specimen (Source) Anatomical Collection Method Collection Time Re ceived Time Location / / Volume Laterality 07/28/2019 1:20 PM EDT Jerrica Ren [employer] SUPER[employer]OR VASCULAR ORDERABLES Performing Organization Address City/State/ZIP Code Phon e Number VASCUBASE documented in this encounter Visit Diagnoses Diagnosis Stenosis of carotid artery, unspecified laterality Malignant neoplasm of head of pancreas documented in this encounter Care Teams Salesperson [employer] Shoes Relationship Specialty Start Date End Date William Wade PA PCP - General Family Medicine 08/31/[address] [place] [address] [place] [address] documented as of this encounter
--- OUTSIDE RECORDS SUMMARY | 2021-11-07 00:56 | XMS_ITS | Encounter Summary ---
:1955 Author Organization [facility] [place] [address] Care Team Providers Name Role Phone William Wade Primary Care Provider Reason for Visit Reason Comments Follow-up Encounter Details Date Type Department Care Team Description 11/04/2018 Office Visit Hematology and Sergey Cook row Oncology at [facility] [place] Jhon hypocellularity [facility] Dr [place], [place], [place] [phone] Social History Tobacco Use Types Packs/Day Years Used Date Current Every Day Smoker Cigarettes 1.5 Smokeless Tobacco: Never Used Tobacco Cessation: Ready [...] Sign Reading Time Taken Comments Blood Pressure 142/52 11/04/2018 8:58 AM EDT Pulse 62 11/04/2018 8:58 AM EDT Temperature 36.7 ??C (98.1 ??F) 11/04/2018 8:58 AM EDT Respiratory Rate 16 11/04/2018 8:58 AM EDT Oxygen Saturation 99% 11/04/2018 8:58 AM EDT Inhaled Oxygen Concentration - - Weight 57.5 kg (126 lb 12.8 oz) 11/04/2018 8:58 AM EDT Height 164 cm (5' 4.57) 11/04/2018 8:58 AM EDT Body Mass Index 21.38 11/04/2018 8:58 AM EDT documented in this encounter Progress Notes Sergey Cook MD - 11/04/2018 9:00 AM EDT OUTPATIENT HEMATOLOGY/ ONCOLOGY CONSULTATION HISTORY PRESENT ILLNESS This patient is a 63 y.o. male presenting for evaluation of weight [...] evidence of dysplasia INTERIM HISTORY He returns to review BM results. Has been feeling well. 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 His weight has been relatively stable. No fevers/ chills/ night sweats/ infections. He does report some increased urination. SOCIAL HISTORY- reviewed with significant changes noted Truck drive Active smoker MEDICATIONS AND ALLERGIES- reviewed at this visit Medications 11/04/18 0858 Medication Sig Taking? atorvastatin (LIPITOR) 80 mg Tablet Yes metFORMIN (GLUCOPHAGE) 850 mg Tablet Yes metoprolol succinate (TOPROL-XL) 100 mg XL tablet 100 MG = 1 Tablet(s), PO, Once daily Yes aspirin 325 mg EC tablet Yes nitroGLYcerin (NITROSTAT) 0.4 mg SL tablet [...] all other systems are negative PHYSICAL EXAMINATION Most Recent Vitals: 11/04/18 0858 BP: 142/52 Pulse: 62 Resp: 16 Temp: 36.7 ??C (98.1 ??F) SpO2: 99% NAD, pleasant, worried, thin but healthy appearing [...] There are no appreciable rashes LABORATORY EVALUATION No results found for this or any previous visit (from the past 24 hour(s)). RADIOGRAPHIC EVALUATION As above PATHOLOGY EVALUATION Reviewed Bone marrow biopsy in BM conference with pathology and heme teams ASSESSMENT: Jeff Duarte is a 63 y.o. male presents with significant macrocytosis without [...] aplastic anemia, in the absence of cytopenias. He had no evidence of a hematologic malignancy that would explain or be related to his weight loss. Because of the uncertainty of the hypocellularity, I would like to continue to follow him to ensure this isn't early AA. I will f/u in 1 yr, and would have to consider repeating marrow to look for progressive hypocellularity if he develops cytopenias in that time. Sergey Cook MD Pager: [phone] 11/04/2018 documented in this encounter Plan of Treatment Upcoming Encounters Date Type Specialty Care Team Description 11/07/2021 Office Visit Hematology and Oncology Eric Streeter MD [facility] [address] [place], [place] [address] ( rk) 11/07/2021 Infusion Hematology and Oncology 11/07/2021 Office Visit Hematology and Oncology Irena Hinojosa RD [facility] [place]ATOLOGY [place] [address] (Wo rk) 11/21/2021 Office Visit Hematology and Oncology Eric Streeter MD [facility] [address] [place], [place] [address] (Wo rk) 11/21/2021 Infusion Hematology and Oncology 12/05/2021 Office Visit Hematology and Oncology Eric Streeter MD [facility] [address] [place], [place] [address] (Wo rk) 12/05/2021 Infusion Hematology and Oncology 12/19/2021 Office Visit Hematology and Oncology Eric Streeter MD [facility] ONCOLOGY [place], [place] [address] (Wo rk) 12/19/2021 Infusion Hematology and Oncology documented as of this encounter Visit Diagnoses Diagnosis Bone marrow hypocellularity Malignant neoplasm of head of pancreas documented in this encounter Care Teams Music Cataloguer Relationship Specialty Start Date End Date William Wade PA PCP - General Family Medicine 08/31/[address] [place] [address] [place] [address] documented as of this encounter
--- OUTSIDE RECORDS SUMMARY | 2021-11-07 00:56 | XMS_ITS | Encounter Summary ---
:1955 Author Organization [facility] [place] [address] Care Team Providers Name Role Phone William Wade Primary Care Provider Reason for Visit Consultation (Routine) - Closed Specialty Diagnoses / Procedures Referred By Contact Refer red To Contact Vascular Surgery Diagnoses Occlusion and stenosis of left carotid artery Occlusion and stenosis of left carotid artery William Wade PA [facility] Vascular Surg [address] [place] [address] [place] [address] Phone: Referral ID Status Reason Start Date Expiration Date Visits V isits Requested Authorized [id number] Closed Consult, 06/21/2019 06/20/2020 2 2 Test & Treat Encounter Details Date Type Department Care Team Description 07/28/2019 Office Visit Vascular Surgery at [facility], [address] port[facility] Pérez of carotid [facility] artery, unspecified [facility] [address] [place], [place] VASCULAR SURGERY [address] [place] [address] [phone] Social History Tobacco Use Types Packs/Day Years [...] Sign Reading Time Taken Comments Blood Pressure 120/50 07/28/2019 2:39 PM EDT Pulse 55 07/28/2019 2:38 PM EDT Temperature - - Respiratory Rate - - Oxygen Saturation - - Inhaled Oxygen Concentration - - Weight 58.2 kg (128 lb 5 oz) 07/28/2019 2:38 PM EDT rep orted Height 165.1 cm (5' 5) 07/28/2019 2:38 PM EDT reported Body Mass Index 21.35 07/28/2019 2:38 PM EDT documented in this encounter Progress Notes Claritza Watkins MD - 07/28/2019 3:00 PM EDT This is a new patient to the practice who is being evaluated for possible high- grade carotid stenosis and was referred by LIBRADO Mcclendon. The patient is referred from [facility], where a duplex by report showed bilateral greater than 70% carotid stenosis. He underwent a repeat duplexhere today. He denies any history of TIA or stroke. He is an active smoker. He does take an aspirin and a statin medication. PMHx: No past medical history on file. PSxHx: Past Surgical History: Procedure Laterality Date ? ? PRO DIAGNOSTIC BONE MARROW BIOPSIES & ASPIRATIONS Left 10/24/2018 ([facility]) BONE MARROW BIOPSY AND ASPIRATION; DIAGNOSTIC performed by Sergey Cook MD at [facility] Family Hx: No family history on file. Social Hx: Social History Tobacco Use ??? Smoking status: Current Every Day Smoker Packs/day: 1.50 Types: Cigarettes ??? Smokeless tobacco: Never Used ??? Tobacco comment: knows he will have to quit Substance Use Topics ??? Alcohol use: Not on file Medications: Medications 07/28/19 1439 Medication Sig Taking? losartan (Cozaar) 25 mg Tablet TK 1 AND 03/23 TS PO QD Yes aspirin EC 81 mg Tablet, Delayed Release (E.C.) Take 81 mg by mouth daily. Yes atorvastatin (LIPITOR) 80 mg Tablet Yes metFORMIN (GLUCOPHAGE) 850 mg Tablet 2 times daily. Yes nitroGLYcerin (NITROSTAT) 0.4 mg SL tablet 0.4 MG = 1 Tablet(s), Sublingual, PRN chest pressure Yes metoprolol succinate (TOPROL-XL) 100 mg XL tablet 100 MG = 1 Tablet(s), PO, Once daily Patient taking differently: Take 25 mg by mouth 2 times daily. Yes Allergies: No Known Allergies Review of [...] All other ROS negative Physical Exam: Vitals: Most Recent Vitals: 07/28/19 1439 BP: 120/50 Pulse: PainSc: Gen: No acute distress. HEENT: Normocephalic, atraumatic. PERR, EOMs intact bilaterally. No scleral icterus. Normal dentition Neck: Supple, no JVD. Heart: Regular rate and rhythm. (+) S1/S2. No snaps, clicks, rubs, or murmurs. No lifts/heaves Lungs: Regular respiratory rate with no increased work of breathing. Clear to auscultation bilaterally. Abd: Soft, nontender, not distended. Audible bowel sounds. No bruits or pulsatile mass on exam. No hepato/splenomegaly. Aortic pulsation normal Vascular Exam: R L Carotid 2/2 bruit (-) 2/2 bruit (-) Radial 2/2 2/2 Femoral 2/2 2/2 Popliteal 2/2 2/2 DP 2/2 2/2 PT 2/2 /2 No edema or varicosities bilateral lower extremities <3 sec cap refill Skin: normal Digits/Nails: No evidence of clubbing, cyanosis, ischemia, or tissue loss. Musculoskeletal: Gait - normal, no notable motor sensory deficits on gross examination. Psych: AAOx3, mood/affect congruent Labs/Studies: Findings: ?? ICA Proximal, Right ?PSV (cm/s): 120 ?EDV (cm/s): 29 ?ICA/CCA: 1.3 ?Plaque Structure: Echogenic ?Plaque Surface: Irregular ?%Stenosis: 16-49% ICA Distal, Right ?PSV (cm/s): 135 ?EDV (cm/s): 29 ?ICA/CCA: 1.5 CCA Distal, Right ?PSV (cm/s): 89 ?EDV (cm/s): 16 ?%Stenosis: Minimal CCA Proximal, Right ?PSV (cm/s): 94 ?EDV (cm/s): 16 External Carotid Artery, Right ?PSV (cm/s): 199 ?EDV (cm/s): 11 ?%Stenosis: Near 50% Vertebral, Right ?PSV (cm/s): 64 ?EDV (cm/s): 12 ?Direction of Flow: Antegrade ICA Proximal, Left ?PSV (cm/s): 302 ?EDV (cm/s): 72 ?ICA/CCA: 3.4 ?Plaque Structure: Echogenic ?Plaque Surface: Irregular ?%Stenosis: 50-69% ICA Middle, Left ?PSV (cm/s): 100 ?EDV (cm/s): 29 ?ICA/CCA: 1.1 ICA Distal, Left ?PSV (cm/s): 112 ?EDV (cm/s): 29 ?ICA/CCA: 1.2 CCA Distal, Left ?PSV (cm/s): 90 ?EDV (cm/s): 15 ?%Stenosis: <50% CCA Proximal, Left ?PSV (cm/s): 96 ?EDV (cm/s): 17 External Carotid Artery, Left ?PSV (cm/s): 183 ?EDV (cm/s): 13 ?%Stenosis: <50% Vertebral, Left ?PSV (cm/s): 64 ?EDV (cm/s): 16 ?Direction of Flow: Antegrade ? Interpretation: ?? RIGHT: There is irregular plaque in the proximal internal carotid artery causing 16-49% stenosis when compared to the more distal internal carotid artery. The bifurcation level is in the mid neck. No significant change compared to previous exam. ? LEFT: There is bulky irregular plaque in the proximal internal carotid artery causing 50-69% stenosis when compared to the more distal internal carotid artery. The bifurcation level is in the mid neck. Significant progression when compared to the previous exam. ? Vertebral Artery Data: Patent vertebral arteries with normal antegrade Doppler waveforms and velocities bilaterally. ?? Impression: On duplex, Mr. Duarte has a right less than 50% carotid stenosis and left 50 to 69% carotid stenosis with a peak systolic velocity in the low 300s. Neither side merits intervention at this time. At this juncture, management should be geared towards risk factor modification. I encouraged him to continue taking an aspirin and a statin and try his best to cut back on his smoking habit. I will see him back in 1 year with a repeat carotid duplex. documented in this encounter Plan of Treatment Upcoming Encounters Date Type Specialty Care Team Description 11/07/2021 Office Visit Hematology and Oncology Eric Streeter MD [facility] ONCOLOG[facility] [place], [place] [address] (Wo rk) 11/07/2021 Infusion Hematology and Oncology 11/07/2021 Office Visit Hematology and Oncology Irena Hinojosa RD [facility] [place] [address] (Wo rk) 11/21/2021 Office Visit Hematology and Oncology Eric Streeter MD [facility] ON[facility]Y [place], [place] [address] (Wo rk) 11/21/2021 Infusion Hematology and Oncology 12/05/2021 Office Visit Hematology and Oncology Eric Streeter MD [facility] ON[facility] [place], [place] [address] (Wo rk) 12/05/2021 Infusion Hematology and Oncology 12/19/2021 Office Visit Hematology and Oncology Eric Streeter MD [facility] ON[facility] [place], [place] [address] (Wo rk) 12/19/2021 Infusion Hematology and Oncology documented as of this encounter Results Carotid Duplex, Bilateral (09/13/2020 2:05 PM EDT) Component Value Ref Test Analysis Performed At [facility] Range Method Time Signature VB Text Department: Vascular Surgery Lab VASCUBASE Report Patient: [id number] (JOHN DUARTE) CPT: 78113 ICD10: I65.23;I65.29 Referring Physician: CLARITZA WATKINS ?? [...] pancreas documented in this encounter Care Teams Typewriter Ribbon Winder Relationship Specialty Start Date End Date William Wade PA PCP - General Family Medicine 08/31/[address] [place] [address] [place] [address] documented as of this encounter
--- OUTSIDE RECORDS SUMMARY | 2021-11-07 00:56 | XMS_ITS | Encounter Summary ---
:1955 Author Organization [facility] [place] [address] Care Team Providers Name Role Phone William Wade Primary Care Provider Encounter Details Date Type Department Care Team Description 09/21/2018 Abstract Hematology and Oncol vanessa at [facility] Hanh Sandhu [facility] [place] [phone] Social History Tobacco Use Types Packs/Day Years Used Date Never Assessed Financial Resource Strain Answer Date Recorded How [...] Streeter MD [facility] ONCOLOGY [place], [place] [address] (Wo rk) 11/07/2021 Infusion Hematology and Oncology 11/07/2021 Office Visit Hematology and Oncology Irena Hinojosa RD [facility] [address] [place] [address] (Wo rk) 11/21/2021 Office Visit Hematology and Oncology Eric Streeter MD [facility] ONCOLOGY [place], [place] [address] (Wo rk) 11/21/2021 Infusion Hematology and Oncology 12/05/2021 Office Visit Hematology and Oncology Eric Streeter MD [facility] [place], [place] [address] (Wo rk) 12/05/2021 Infusion Hematology and Oncology 12/19/2021 Office Visit Hematology and Oncology Eric Streeter MD [facility] [place], [place] [address] (Wo rk) 12/19/2021 Infusion Hematology and Oncology documented as of this encounter Visit Diagnoses Not on filedocumented in this encounter Care Teams Clutch Assembler Relationship Specialty Start Date End Date William Wade PA PCP - General Family Medicine 08/31/[address] [place] [address] [address] [place], [place] [id number] documented as of this encounter
--- OUTSIDE RECORDS SUMMARY | 2021-11-07 00:56 | XMS_ITS | Encounter Summary ---
:1955 Author Organization [facility] [place] [address] Care Team Providers Name Role Phone William Wade Primary Care Provider Reason for Visit Consultation (Routine) - Closed Specialty Diagnoses / Procedures Referred By Contact Refer red To Contact Hematology and Oncology Diagnoses Macroytic anemia William Wade, [facility] Hem Onc 3k Procedures Consult, Test & Treat [facility] [address] [place] [phone] Fax: Referral ID Status Reason Start Date Expiration Date Visits V isits Requested Authorized [id number] Closed Consult, 08/29/2018 08/29/2019 1 1 Test & Treat Encounter Details Date Type Department Care Team Description 09/30/2018 Office Visit Hematology and Sergey Cook Anemia, unspecified Oncology at [facility] MD Jhon type [facility] [address] [place], [place] [phone] Social History Tobacco Use Types Packs/Day Years [...] Sign Reading Time Taken Comments Blood Pressure 128/57 09/30/2018 3:36 PM EDT Pulse 67 09/30/2018 3:36 PM EDT Temperature 36.1 ??C (97 ??F) 09/30/2018 3:36 PM EDT Respiratory Rate 18 09/30/2018 3:36 PM EDT Oxygen Saturation 96% 09/30/2018 3:36 PM EDT Inhaled Oxygen Concentration - - Weight 58.1 kg (128 lb) 09/30/2018 3:36 PM EDT Height 163.8 cm (5' 4.5) 09/30/2018 3:36 PM EDT Body Mass Index 21.63 09/30/2018 3:36 PM EDT documented in this encounter Progress Notes Sergey Cook MD - 09/30/2018 4:00 PM EDT OUTPATIENT HEMATOLOGY/ ONCOLOGY CONSULTATION HISTORY [...] been within the normal range. Work up Imaging: ?? CT scan- No masses or lymphadenopathy Treatment Course ?? INTERIM HISTORY See presentation SOCIAL HISTORY- reviewed with significant changes noted Social History Socioeconomic History ??? Marital status: Spouse name: None ??? Number of children: None ??? Years of education: None ??? Highest education level: None Occupational History ??? None Social Needs ??? Financial resource strain: None ??? Food insecurity: Worry: None Inability: None ??? Transportation needs: Medical: None Non-medical: None Tobacco Use ??? Smoking status: Current Every Day Smoker Packs/day: 1.50 Types: Cigarettes ??? Smokeless tobacco: Never Used ??? Tobacco comment: knows he will have to quit Substance and Sexual Activity ??? Alcohol use: None ??? Drug use: None ??? Sexual activity: None Lifestyle ??? Physical activity: Days per week: None Minutes per session: None ??? Stress: None Relationships ??? Social connections: Talks on phone: None Gets together: None Attends temple service: None Active member of club or organization: None Attends meetings of clubs or organizations: None Relationship status: None ??? Intimate partner violence: Fear of current or ex partner: None Emotionally abused: None Physically abused: None Forced sexual activity: None Other Topics Concern ??? None Social History Narrative ??? None MEDICATIONS AND ALLERGIES- reviewed at this visit Medications 09/30/18 1542 Medication Sig Taking? atorvastatin (LIPITOR) 80 mg Tablet Yes metFORMIN (GLUCOPHAGE) 850 mg Tablet Yes nitroGLYcerin (NITROSTAT) 0.4 mg SL tablet 0.4 MG = 1 Tablet(s), Sublingual, PRN chest pressure Yes metoprolol succinate (TOPROL-XL) 100 mg XL tablet 100 MG = 1 Tablet(s), PO, Once daily Yes aspirin 325 mg EC tablet Yes clopidogrel (PLAVIX) 75 mg tablet 75 MG = 1 Tablet(s), PO, Once daily Patient not taking: No sig reported lisinopril (PRINIVIL;ZESTRIL) 2.5 mg tablet 2.5 MG = 1 Tablet(s), PO, Once daily Patient not taking: No sig reported simvastatin (ZOCOR) 40 mg tablet 40 MG = 1 Tablet(s), PO, QPM Patient not taking: No sig reported PAST [...] are negative PHYSICAL EXAMINATION Most Recent Vitals: 09/30/18 1536 BP: 128/57 Pulse: 67 Resp: 18 Temp: 36.1 ??C (97 ??F) SpO2: 96% NAD, pleasant, worried, thin but healthy appearing [...] hour(s)). RADIOGRAPHIC EVALUATION As above PATHOLOGY EVALUATION As above ASSESSMENT: Jeff Duarte is a 63 y.o. male presents with significant macrocytosis without anemia,in the setting of unexplained weight loss. He had a similar MCV roughly 10 yrs ago. Peripheral bloodtesting for vitamins, reticulocytosis, etc has been unrevealing. While I am reassured that there is likely a benign explanation for the macrocytosis, Mr Duarte wouldlike to pursue a bone marrow biopsy, as the gold standard for detecting blood disorders. I think this is reasonable, as this macrocytosis is only part of a larger weight loss work up, and clearing thisup may move the work up along. Will see Mr Duarte after BM to discuss results. Sergey Cook MD Pager: [phone] 10/04/2018 documented in this encounter Plan of Treatment Upcoming Encounters Date Type Specialty Care Team Description 11/07/2021 Office Visit Hematology and Oncology Eric Streeter MD [facility] [place], [place] [address] (Wo rk) 11/07/2021 Infusion Hematology and Oncology 11/07/2021 Office Visit Hematology and Oncology Irena Hinojosa RD [facility] DR[address] HEMATOLOGY AND O NCOLOGY [place], [place] [address] (Wo rk) 11/21/2021 Office Visit Hematology and Oncology Eric Streeter MD [facility] [address] [place], [place] [address] (Wo rk) 11/21/2021 Infusion Hematology and Oncology 12/05/2021 Office Visit Hematology and Oncology Eric Streeter MD [facility] [address] [place], [place] [address] (Wo rk) 12/05/2021 Infusion Hematology and Oncology 12/19/2021 Office Visit Hematology and Oncology Eric Streeter MD [facility] [address] [place], [place] [address] (Wo rk) 12/19/2021 Infusion Hematology and Oncology documented as of this encounter Procedures Procedure Name Priority Date/Time Associated Comments Diagnosis IMMUNOGLOBULIN FREE Routine 09/30/2018 4:37 Anemia, unspecifie d Results for this LIGHT CHAINS, SERUM PM EDT type procedur e are in the results section. HEMOGRAM Routine 09/30/2018 4:37 Anemia, unspecified Resul ts for this PM EDT type procedure are i n the results section. DIFFERENTIAL, AUTOMATED Routine 09/30/2018 4:37 Anemia, unspec ified Results for this PM EDT type procedure are i n the results section. SEDIMENTATION RATE Routine 09/30/2018 4:37 Anemia, unspecified Results for this PM EDT type procedure are i n the results section. RETICULOCYTE COUNT Routine 09/30/2018 4:37 Anemia, unspecified Results for this PM EDT type procedure are i n the results section. CBC (WITH DIFF) Routine 09/30/2018 4:37 Anemia, unspecified PM EDT type PROTEIN Routine 09/30/2018 4:37 Anemia, unspecified Resul ts for this ELECTROPHORESIS, SERUM PM EDT type proce dure are in the results section. LACTATE DEHYDROGENASE Routine 09/30/2018 4:37 Anemia, unspecif ied Results for this PM EDT type procedure are i n the results section. HAPTOGLOBIN Routine 09/30/2018 4:37 Anemia, unspecified Resul ts for this PM EDT type procedure are i n the results section. FOLATE, SERUM Routine 09/30/2018 4:37 Anemia, unspecified Resu lts for this PM EDT type procedure are i n the results section. VITAMIN B12 Routine 09/30/2018 4:37 Anemia, unspecified Resul ts for this PM EDT type procedure are i n the results section. COMPREHENSIVE METABOLIC Routine 09/30/2018 4:37 Anemia, unspec ified Results for this PANEL (NON-FASTING) PM EDT type procedur e are in the results section. (OSC MSURG) BONE MARROW Routine 09/30/2018 4:18 BIOPSY AND ASPIRATION; PM EDT DIAGNOSTIC documented in this encounter Results Differential, Automated (09/30/2018 4:37 PM EDT) P athologist Signature Neutrophils % 62.5 % [facility] Neutr Abs (ANC) 6.01 1.70 - [facility] 6.10 [facility] x10(3)/[facility] LABORATORY Lymphocytes % 29.9 % [facility] Lymphocytes Abs 2.9 0.9 - 3.2 [facility] x10(3)/[facility] LABORATORY Monocytes % 5.9 % [facility] Monocyte Abs 0.6 0.3 - 0.9 [facility] x10(3)/[facility] LABORATORY Eosinophils % 0.8 % [facility] Eosinophils Abs 0.1 0.0 - 0.4 [facility] x10(3)/[facility] LABORATORY Basophils % 0.5 % [facility] Basophils Abs 0.0 0.0 - 0.1 [facility] x10(3)/[facility] LABORATORY Immature Gran % 0.40 % [facility] Comment: Immature granulocytes(IG's)percentage an d absolute count will include metamyelocytes, myelocytes, and promyelo cytes. Blood smears from CBCs yielding IG's will be scanned manually for concor dance. If this scan disagrees with the automated IG or if promyelocytes are not ed, a manual differential will be performed. Neda Gran Abs 0.04 0.00 - 0.04 x10(3)/[facility] MAR Y [facility] Specimen Anatomical Collection Method Collection Time Receive d Time (Source) Location / / Volume Laterality Blood specimen 09/30/2018 4:37 PM 019 4:49 (specimen) EDT PM EDT Resulting Agency Comment Spec In Lab Sergey Cook MD HEMATOLOGY ORDERABLES Performing Organization Address City/State/Z[place] [address] (ABNORMAL) Hemogram (09/30/2018 4:37 PM EDT) [facility] gist Method Time Signature WBC 9.6 (H) 4.0 - 9.5 [facility] x10(3)/[facility] LABORATORY RBC 3.92 (L) 4.58 - [facility] 5.54 [facility] x10(6)/[facility] LABORATORY Hemoglobin 14.1 13.7 - [facility] 16.5 gm/dL [facility] Hematocrit 42.1 40.5 - [facility] 48.5 % [facility] MCV 107.4 (H) 82.9 - [facility] 93.1 fL [facility] MCH 36.0 (H) 27.5 - [facility]ER 32.1 pg [facility] MCHC 33.5 32.0 - [facility] 35.7 gm/dL [facility] Platelets 170 145 - 357 [facility] x10(3)/[facility] LABORATORY RDWSD 49.7 (H) 36.0 - [place] [place] 45.0 [facility] LABORATORY RDWCV 12.6 11.4 - [place] RACIEL 13.8 % [facility] MPV 10.8 7.6 - 12.9 [facility] SCHRADER [facility] LABORATORY nRBC % Auto 0.0 % [facility] nRBC Abs Auto 0.000 0.000 - [facility] 0.000 [facility] x10(3)/[facility] LABORATORY Specimen Anatomical Collection Method Collection Time Receive d Time (Source) Location / / Volume Laterality Blood specimen 09/30/2018 4:37 PM 019 4:49 (specimen) EDT PM EDT Resulting Agency Comment Spec In Lab Sergey Cook MD HEMATOLOGY ORDERABLES Performing Organization Address City/[facility]/[place] [address] Vitamin B12 (09/30/2018 4:37 PM EDT) athologist Signature Vitamin B-12 485 232 - 1,245 [facility] RACIEL pg/mL [facility] LABOR[facility]ORY Specimen Anatomical Collection Method Collection Time Receive d Time (Source) Location / / Volume Laterality Blood specimen 09/30/2018 4:37 PM 019 4:49 (specimen) EDT PM EDT Resulting Agency Comment Spec In Lab Sergey Cook MD CHEMISTRY ORDERABLES Performing Organization Address City/[facility]/ZIP [facility] [place] [address] Sedimentation rate (09/30/2018 4:37 PM EDT) P athologist Signature Sed Rate 9 0 - 15 [facility] RACIEL mm/hr [facility]ORY Specimen Anatomical Collection Method Collection Time Receive d Time (Source) Location / / Volume Laterality Blood specimen 09/30/2018 4:37 PM 019 4:49 (specimen) EDT PM EDT Resulting Agency Comment Spec In Lab Sergey Cook MD HEMATOLOGY ORDERABLES Performing Organization Address City/[facility]/[place] [address] (ABNORMAL) Reticulocyte Count (09/30/2018 4:37 PM EDT) [facility] Method Time Signature Retic Ct % 1.4 0.7 - 2.6 [facility] % [facility] LABORATORY Retic Ct Abs 0.060 0.030 - [facility] 0.120 [facility] x10(6)/[facility] L LABORATORY Immature Retic% 9.9 0.0 - [facility] 15.6 % [facility] LAB[facility]ORY Reticulated Hgb 40.9 (H) 31.3 - [facility] 40.2 pg [facility]ORY Specimen Anatomical Collection Method Collection Time Receive d Time (Source) Location / / Volume Laterality Blood specimen 09/30/2018 4:37 PM 019 4:49 (specimen) EDT PM EDT Resulting Agency Comment Spec In Lab Sergey Cook MD HEMATOLOGY ORDERABLES Performing Organization Address City/[facility]/[place] [address] Protein Electrophoresis, serum (09/30/2018 4:37 PM EDT) [facility] Method Time Signature Total Prot 7.1 6.1 - 8.0 [facility] Elec gm/dL [facility] Albumin Elect 4.43 3.60 - 6.00 [facility] gm/dL [facility] Alpha1-Globul 0.20 0.10 - 0.30 [facility] in gm/dL [facility] Alpha2-Globul 0.79 0.40 - 0.90 [facility] in gm/dL [facility] Beta Globulin 0.71 0.50 - 1.00 [facility] gm/dL [facility] Gamma 0.97 0.50 - 1.30 [facility] Globulin gm/dL [facility] M1 Band None None [facility] Detected Detected [facility] LAB[facility] Specimen Anatomical Collection Method Collection Time Receive d Time (Source) Location / / Volume Laterality Blood specimen 09/30/2018 4:37 PM 019 4:49 (specimen) EDT PM EDT Resulting Agency Comment Spec In Lab Sergey Cook MD CHEMISTRY ORDERABLES Performing Organization Address City/[facility]/[place] [address] Lactate Dehydrogenase (09/30/2018 4:37 PM EDT) athologist Signature LDH 192 110 - 220 [facility] SCHRADER unit/L [facility] LAB[facility]ORY Specimen Anatomical Collection Method Collection Time Receive d Time (Source) Location / / Volume Laterality Blood specimen 09/30/2018 4:37 PM 019 4:49 (specimen) EDT PM EDT Resulting Agency Comment Spec In Lab Sergey Cook MD CHEMISTRY ORDERABLES Performing Organization Address City/[facility] [place] [address] (ABNORMAL) Haptoglobin (09/30/2018 4:37 PM EDT) athologist Signature Haptoglobin 202 (H) 30 - 200 [facility] RACIEL mg/dL [facility] Comment: Haptoglobin concentrations in newborns i s low to undetectable; however, adult concentrations are usually attained by 4 months of age. ??No sex-related differences for haptoglobin have been de tected. Specimen Anatomical Collection Method Collection Time Receive d Time (Source) Location / / Volume Laterality Blood specimen 09/30/2018 4:37 PM 019 4:49 (specimen) EDT PM EDT Resulting Agency Comment Spec In Lab Sergey Cook MD CHEMISTRY ORDERABLES Performing Organization Address City/[facility]/[place] [address] Free Light Chains, Serum (09/30/2018 4:37 PM EDT) athologist Signature [place] Free 1.95 0.81 - [facility] RACIEL Light Chains 2.98 mg/dL [facility] Lambda Free 1.56 0.86 - [facility] RACIEL Light Chains 1.99 mg/dL [facility] LAB[facility] [place]/Lambda 1.2500 0.5000 - [place] RACI[facility] Free Light 2.4300 [facility] LABORATORY Comment: Please be advised that following a multi -institution study the reference interval for Serum Free Light Chains was updated April 02, 2017. Specimen Anatomical Collection Method Collection Time Receive d Time (Source) Location / / Volume Laterality Blood specimen 09/30/2018 4:37 PM 019 4:49 (specimen) EDT PM EDT Resulting Agency Comment Spec In Lab Sergey Cook MD CHEMISTRY ORDERABLES Performing Organization Address City/[facility]/ZIP Code Phon e Number [address] Folate, serum (09/30/2018 4:37 PM EDT) P athologist Signature Folate Lvl 18.2 4.8 - 24.2 [facility] ng/mL [facility] LAB[facility]ORY Specimen Anatomical Collection Method Collection Time Receive d Time (Source) Location / / Volume Laterality Blood specimen 09/30/2018 4:37 PM 019 4:49 (specimen) EDT PM EDT Resulting Agency Comment Spec In Lab Segrey Cook MD CHEMISTRY ORDERABLES Performing Organization Address City/[facility]/ZIP Code Phon e Number [address] Comprehensive metabolic panel (non-fasting) (09/30/2018 4:37 PM EDT) P athologist Signature Glucose Lvl 113 65 - 199 [facility] mg/dL [facility] LAB[facility]ORY Comment: Diabetes: >=200 mg/dL plus symp toms BUN 12 10 - 20 mg/dL [facility] Creatinine 1.01 0.80 - 1.50 mg/dL [facility] Sodium 139 135 - 145 mmol/L [facility] Potassium 4.0 3.5 - 5.0 mmol/L [facility] Comment: Please note: ??Patients with WBC >100,00 0 may have falsely elevated Potassium levels. ??For accurate Potassium quantif ication in these patients send serum separator tube (gold top) for subsequent determinations. ??Contact the Clinical Chemistry Laboratory if there are any qu estions. Chloride 102 98 - 107 mmol/L [facility] CO2 25 22 - 31 mmol/L [facility] Anion Gap 12 5 - 15 mmol/L [facility] Calcium 9.6 8.5 - 10.5 mg/dL [facility] Total Protein 7.4 6.1 - 8.0 gm/dL [facility] Albumin 4.5 3.2 - 5.2 gm/dL [facility] AST 19 0 - 39 unit/L [facility] ALT 15 0 - 55 unit/L [facility] Alk Phos 90 40 - 120 unit/L [facility] Total Bilirubin 0.6 0.2 - 1.3 mg/dL [facility] Estimated GFR 78 >=60 mL/min/1.73 m?? [facility] Comment: The eGFR was calculated using the CKD-EP I equation. As with all creatinine based estimates of kidney function, eGFR values calculated with the CKD-EPI equation are not accurate in patients wi th acute kidney failure, extremes of body mass or the acutely ill. [email or web address] eGFR 91 >=60 mL/min/1.73 m?? [facility] Comment: The eGFR was calculated using the CKD-EP I equation. As with all creatinine based estimates of kidney function, eGFR values calculated with the CKD-EPI equation are not accurate in patients wi th acute kidney failure, extremes of body mass or the acutely ill. [email or web address] Specimen Anatomical Collection Method Collection Time Receive d Time (Source) Location / / Volume Laterality Blood specimen 09/30/2018 4:37 PM 019 4:49 (specimen) EDT PM EDT Resulting Agency Comment Spec In Lab Sergey Cook MD CHEMISTRY ORDERABLES Performing Organization Address City/State/Z[place] [address] documented in this encounter Visit Diagnoses Diagnosis Anemia, unspecified type Malignant neoplasm of head of pancreas documented in this encounter Care Teams Railroad Inspector Relationship Specialty Start Date End Date William Wade PA PCP - General Family Medicine 08/31/[address] [place] [address] [place] [address] documented as of this encounter
--- OUTSIDE RECORDS SUMMARY | 2021-11-07 00:56 | XMS_ITS | Encounter Summary ---
:1955 Author Organization [facility] [place] [address] Care Team Providers Name Role Phone William Wade Primary Care Provider Reason for Visit Auth/Cert Specialty Diagnoses / Procedures Referred By Contact Refer red To Contact Diagnoses Macrocytic anemia with weight loss Procedures PRO DIAGNOSTIC BONE MARROW BIOPSIES & ASPIRATIONS ([facility]) BONE MARROW BIOPSY AND ASPIRATION; DIAGNOSTIC Referral ID Status Reason Start Date Expiration Date Visits Requ ested Visits Authorized [id number] 1 1 Encounter Details Date Type Department Care Team Description 10/24/2018 Surgery Outpatient Surgery Sergey Cook, ( [facility]) BONE MARROW Center Julisa Jorge MD BIOPSY AND ASPIRATION; [facility] DIAGNOSTIC [facility] [place] [address] [place] [address] [phone] Social History Tobacco Use Types Packs/Day Years [...] Sign Reading Time Taken Comments Blood Pressure 127/52 10/24/2018 3:30 PM EDT Pulse 61 10/24/2018 3:10 PM EDT Temperature 37.2 ??C (99 ??F) 10/24/2018 3:17 PM EDT Respiratory Rate 14 10/24/2018 3:10 PM EDT Oxygen Saturation 97% 10/24/2018 3:45 PM EDT Inhaled Oxygen Concentration - - Weight 57.6 kg (127 lb) 10/24/2018 2:01 PM EDT Height 165.1 cm (5' 5) 10/24/2018 2:01 PM EDT Body Mass Index 21.13 10/24/2018 2:01 PM EDT documented in this encounter Discharge Instructions Discharge Graciela Ramírez RN - 10/24/2018 2:31 PM EDT OUTPATIENT SURGERY POST-OPERATIVE INSTRUCTIONS BONE MARROW BIOPSY SITE 1. You have had a bone marrow aspiration and or/biopsy, which is like having an operation with a tiny, deep incision. 2. Do Not do any strenuous work today, like housework, yard work, sports of any kind or lifting morethan 5 pounds as it may cause your bone marrow site to bleed. 3. To avoid infection, leave the clear plastic dressing on the site for three days. You may shower, bathe, or swim as you wish, provided the clear dressing remains intact, and all sides of the dressingare firmly adhered to the skin. In the unlikely event that a portion or the entire dressing should come off, you may replace it with a conventional cloth band aid. However, you will no longer be able to get the site wet until three days have passed, as a conventional band aid is not waterproof and thesite is no longer a sterile area. 4. It is not unusual for the site to leak a scant amount of blood, so do not be alarmed to see a small collection, or ???puddle?? of blood under the dressing. Wound healing will still occur. 5. If you are uncertain if there is an increase in any leaking from your bone marrow site, roll up atowel, lie down on a firm surface, place the towel directly over the puncture site to apply pressure, and rest there for one half hour. Direct, FIRM thumb pressure applied to the site for 10 minutes works well as an alternative method. Leave the dressing on. 6. Most people do not experience much discomfort after this procedure, but if you do, you should askyour physician what to take. AVOID ASPIRIN PRODUCTS as these interfere with clotting. 7. After three days, remove your dressing and leave it off, so the air can get to the site to finishthe healing process. 8. NOTIFY YOUR DOCTOR FOR: a. Redness b. Heat c. Fever d. Swelling e. Drainage f. Increased pain g. Foul odor (which may not be apparent through the dressing) If you are having problems or have any additional concerns or questions: Between 8am and 5pm - Call the Hematology Clinic at . After 5pm or on a weekend: Call the [facility] dock operator at and ask for the physician project control manager covering for your doctor. Instructions following sedation You may have received medication before and/or during your procedure, which affects judgement and reaction time. Use caution with stairs. Do not drive, operate machinery, drink alcoholic beverages, or make any legal decisions for 24 hours. You may eat a regular diet as tolerated. Do not smoke if you are alone. IV site -- slight redness, or tenderness is normal, you can use a warm compress. If tenderness and redness increases or foul drainage occurs, please contact your M[facility] [address] ??? [place] [address] ??? [phone] ??? [email or web address] [employer] ??? [facility] ??? [facility] ??? [facility], [facility] documented in this encounter Medications at Time of Discharge Medication Sig Dispensed Refills Start Date End Date atorvastatin (LIPITOR) 80 40 mg. 0 09/21/2018 mg Tablet metFORMIN (GLUCOPHAGE) 850 2 times daily. 0 09/21 mg Tablet nitroGLYcerin (NITROSTAT) Place under the 0 07/25 0.4 mg SL tablet tongue. clopidogrel (PLAVIX) 75 mg 75 MG = 1 0 9 11/04/2018 tablet Tablet(s), PO, Once daily metoprolol succinate 100 MG = 1 0 07/25/200809/19 (TOPROL-XL) 100 mg XL Tablet(s), PO, tablet Once daily lisinopril 2.5 MG = 1 0 07/25/2008 11/04/2018 (PRINIVIL;ZESTRIL) 2.5 mg Tablet(s), PO, tablet Once daily simvastatin (ZOCOR) 40 mg 40 MG = 1 0 07/25/2008 11/04/2018 tablet Tablet(s), PO, QPM aspirin 325 mg EC tablet 0 04/25/2008 07/28/2019 documented as of this encounter Progress Notes Graciela Paulino RN - 10/24/2018 3:24 PM EDT Discharge instructions and medications reviewed with patient in pre-op. All questions answered and written copy sent home with patient. Graciela Paulino RN - 10/24/2018 3:22 PM EDT Date/Procedure: Meds Given Comments 10/24/18 2 mg versed (1,1); 75 mcg fentanyl (50, 25) Pt tolerated the procedure well; no c/o pain or discomfort. documented in this encounter H&P Notes lFower Morocho APRN - 10/24/2018 2:39 PM EDT Pre-Sedation Assessment: Planned procedure: bone marrow biopsy Indications: assessment of MCV Diagnosis: unknown Assessment: Cardiovascular: Rhythm: Regular with systolic flow murmur Rate: Normal Pulmonary: Breath sounds clear to auscultation ASA: 2: Patient with mild systemic disease Mallampati: I: soft palate, fauces, tonsillar pillars and uvula can be seen H&P reviewed: Yes Relevant diagnostic studies: cbc pending Confirm NPO status: Yes, Date and Time of last intake: last evening; black coffee this morning History of anesthetic complications: No Current medications reviewed: Yes Allergies reviewed: Yes Alcohol use: denies any use in 2 months, Date and Time of last drink: n/a Drug use: denies use Sedation Plan: moderate (conscious sedation) The sedation plan, its benefits and risks, and alternatives were discussed with the patient. The planned procedure, its benefits and risks, and alternatives were discussed with the patient. Thepatient consented to the procedure. Discharge to: Home documented in this encounter Procedure Notes Flower Morocho APRN - 10/24/2018 3:25 PM EDTProcedure(s): HC DIAGNOSTIC BONE MARROW BIOPSIES Pre-Procedure Diagnose(s): Elevated MCV BONE MARROW BIOPSY AND ASPIRATION PROCEDURE NOTE Bone marrow biopsy with sedation Consent: Signed and on chart DIAGNOSIS: elevated MCV IV ACCESS: peripheral; right antecubital Pre-Procedure: (x) Pt and family educated about bone marrow biopsy and aspiration. (x) Consent signed (scanned into pt's chart) (x) CBC drawn within 3 days. (x) Medications/Allergies/Problem List reviewed Prior to start of procedure the following is verified in a Time Out: (x) Patient identity (x) Planned procedure (x) Safety concerns PAIN INTERVENTION: Conscious sedation w/ Fentanyl and Versed. See conscious sedation RN notes Sterile Condition: Chlorohexidine was used to cleanse the biopsy site Sterile drapes were used to create a sterile field. Local Anesthesia: 1 % Lidocaine: total dose = 18 cc PROCEDURE: A bone marrow biopsy and aspiration was performed on the left posterior iliac crest. Tegaderm dressing placed and pressure applied to site for 30 minutes following the procedure. Estimated Blood Loss: minimal Complications: none Testing: Per bone marrow requisition Follow-up: Written/Verbal instructions for site care reviewed and given to the patient. Encouraged to call with any concerns. Follow-up with Physician as instructed. Flower Morocho APRN documented in this encounter Plan of Treatment Upcoming Encounters Date Type Specialty Care Team Description 11/07/2021 Office Visit Hematology and Oncology Eric Streeter MD [facility] [place], [place] [address] (Wo rk) 11/07/2021 Infusion Hematology and Oncology 11/07/2021 Office Visit Hematology and Oncology Irena Hinojosa RD [facility] HEMATOLOGY AND O NCOLOGY [place], [place] [address] (Wo rk) 11/21/2021 Office Visit Hematology and Oncology Eric Streeter MD [facility] [address] [place], [place] [address] (Wo rk) 11/21/2021 Infusion Hematology and Oncology 12/05/2021 Office Visit Hematology and Oncology Eric Streeter MD [facility] [address] [place], [place] [address] (Wo rk) 12/05/2021 Infusion Hematology and Oncology 12/19/2021 Office Visit Hematology and Oncology Eric Streeter MD [facility] [address] [place], [place] [address] (Wo rk) 12/19/2021 Infusion Hematology and Oncology documented as of this encounter Procedures Procedure Name Priority Date/Time Associated Comments Diagnosis KARYOTYPING, BONE MARROW Routine 10/24/2018 3:10 Results for this -[facility] EDT procedure are i n the results section. IMMUNOPHENOTYPING FLOW Routine 10/24/2018 3:10 Re sults for this CYTOMETRY PM EDT procedure are i n the results section. BONE MARROW FINAL REPORT Routine 10/24/2018 3:10 Results for this PM EDT procedure are i n the results section. IRON STAIN, BONE MARROW Routine 10/24/2018 3:10 R esults for this PM EDT procedure are i n the results section. BONE MARROW PANEL Routine 10/24/2018 3:10 ([facility]/CGP/APD) PM EDT ([facility]) BONE MARROW 10/24/2018 2:55 Macrocytic ane zeus BIOPSY AND ASPIRATION; PM EDT with weight loss DIAGNOSTIC HEMOGRAM Routine 10/24/2018 2:40 Results for this PM EDT procedure are i n the results section. DIFFERENTIAL, AUTOMATED Routine 10/24/2018 2:40 R esults for this PM EDT procedure are i n the results section. CBC (WITH DIFF) Routine 10/24/2018 2:40 PM EDT documented in this encounter Results Bone Marrow Final Report (10/24/2018 3:10 PM EDT) Component Value Ref Test Analysis Performed At [facility] gist Range Method Time Signature Bone Marrow [id number] ? Location: [facility] Final Report [place] The signing pathologist has (i) examined the relevant preparation(s) for the [facility] specimen(s) and (ii) rendered or confirmed the diagnosis(es) . HOSPITAL LABORATORY . ? Bone Marrow Final DIAGNOSIS BONE MARROW (PERIPHERAL SMEAR, ASPIRATE SMEAR, TOUCH PREP, C ORE BIOPSY): ?? 1. 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 2. ??Iron stores are present per iron stain ?? 3. ??Peripheral smear showing erythrocyte macrocytosis w ithout anemia ?? 4. ??Cytogenetic studies are pending Electronically signed by: ??Dave Dalton MD Verified: ??10/25/2018 ?Hematopathologist Performed at: ??-[facility] Dept. of Pathology, [place], [place] DISCUSSION The erythrocytes have an increased MCV w ithout significant anemia. No specific features of dyspoiesis or s ignificant reticulocytosis are appreciated. Although the marrow is hypocellular, there is no significant peripheral cytopenia, thus at present the findings are not compatible with an aplastic an emia. Given the low cellularity, p erhaps the patient had a myelosuppressive incident in the recent past. Factors wh ich may contribute to increased erythrocyte MCV include early nutritional deficits, liver/thyroid disease, EtOH/toxin exposures, smoking, or medication effect. No primary disord er of hematopoiesis is morphologically identified. Concurrent flow cytometry st udies were negative for immunophenotypically abnormal blasts, lymphocyte, and duane sma cell populations; compatible with the morphologic findings. PERIPHERAL SMEAR WBC 7.7K/uL, RBC 4.0M/uL, HGB 14.1g/dL, MCV 103.3fL, RDW 1 2.6%, PLT 162K/uL The peripheral smear shows n ormochromic macrocytic erythrocytes without significant anemia. Anisocytosis and po lychromasia are not increased, but oval macrocytes are present. The white cell cou nt is normal, and all relative and absolute leukocyte counts are within reference limits. The neutrophils are mostly mature and without significant left-shift. Rem aining leukocyte morphology is generally unremarkable. The platelet counts and morphology are normal. BONE MARROW ASPIRATE Adequacy: ?Smear/touch preparations adequate, cellula r. G:E ratio: ? 2.2:1 Erythroid: ? Complete normoblastic maturation, no left-s hift. Granulocyte: ?? Complete normal maturation, no left-shift. Megakaryocyte: Normal in number and morphology. Lymphocyte: ?Scattered mature forms seen, no aggregates appreciated. Plasma cells: ??Mild relative increase, morphologically unre markable Other: ? Normal eosinophils, basophils, and mast c ells. Iron stain: ?Iron stores present, no increase in ring si deroblasts. DIFFERENTIAL Band/Seg 27.5%; Lymph 13.0%; [place] 7.0%; Eos 2.0%; Baso 1.0%; Metamyelocyte 11.5%; Myelocyte 5.0%; Promyelocyte 1.5%; Luis t 1.5%; nRBC's 22.5%; Plasma cell 7.5% . BONE MARROW BIOPSY and/or CLOT Adequacy: ?Adequate, evaluable marrow present. Cellularity: ?? Hypocellular, 10-20% Erythroid: ? Precursors numerically decreased. Granulocyte: ?? Precursors numerically decreased. Megakaryocyte: Subjective numerical decrease, normal appeara nce. Lymphocytes: ?? No abnormal aggregates identified. Plasma cells: ??Scattered forms seen, no clustering Other: ? Normal eosinophils, basophils, and mast c ells. Bone: ?Trabecular bone with mild relative thinn ing. CLINICAL INFORMATION Specimen: ? Bone marrow, aspirate and bio psy, left Clinical Diagnosis: ? 63M; unexplained weight loss and RBC macrocytosis Indication for Study: ?? Evaluate marrow for hematologic dis order ?Avery w Cytometry DIAGNOSIS BONE MARROW ASPIRATE, FLOW CYTOMETRY: No increase in blasts, monot ypic B-cell population, monotypic plasma-cell population, or specific lees-T-cell marker aberrancies are detected. Electronically signed by: ??Dave Dalton MD Verified: ??10/25/2018 ?Hematopathologist Performed at: ??-[facility] Dept. of Pathology, [place], [place] DISCUSSION The FG35-cut low-SSC flow histogram region shows no increase in blasts. The lymphocyte enriched gate represents about 18% of the total events, and this gated population consists mostly of T-cells (83%), B-cells (10%), and NK-cells (7%). The T-cells show a CD4:CD8 rati o of about 1:1.3, and no lees-T-cell marker aberrancy is identified. The B-cells are polytypic with a kappa:lambda ratio of about 1.1:1. A CD38+/CD138+ plasma cell e nriched gate represents <1% of the total events, and shows polytypic light-chain expression with a (c)kappa:(c)lambda ratio of about 1.4:1. These plasma cells are negative for CD20 expression. Flow analysis is an ancillar y study. A definite diagnosis requires correlation with the morphologic features of this process and if necessary, correlation with other ancillary studies like immu nohistochemistry, enzyme cytochemistry and/or cyto/ molecular genetics. This test was developed and its performance helder acteristics determined by the Clinical Flow Cytometry Lab oratory at [facility]. It has not been cleared or approve d by the U.S. Food and Drug Administration. ??The FDA has determined that such cleara nce or approval is not necessary. ??This test is used for clinical purposes. ??It litzy uld not be regarded as investigational or for research. This laboratory is certifie d under the Clinical Laboratory Improvement Act of 1988 (CLIA) as qualified to perform high complexity clinic al laboratory testing. SPECIMEN PROCESSING [id number] Cells for immunophenotypic a nalysis were derived from bone marrow. CD45 vs side scatter gating was utilized to identify a lymphoid and CD38 bright, CD138+ analysis region that comprises appro ximately 17-18% and 0.2% of all cells, respectively. The following markers were a ssessed: CD2, CD3, CD4, CD5, CD7, CD8, CD10, CD19, CD20, CD38, CD45, CD56, CD138, ka ppa light chain, (c)kappa light chain, lambda light chain, and (c)lambda light chain. . CLINICAL INFORMATION A 63 year old man with unexp lained weight loss and RBC macrocytosis. A bone marrow biopsy was procured to [facility] for hematologic malignancy. Tissue was submitted for flow cytometry. Specimen (Source) Anatomical Collection Method Collection Time Re ceived Time Location / / Volume Laterality 10/24/2018 3:10 PM EDT Sergey Cook MD PATHOLOGY/CYTOLOGY ORDERABLE S Performing Organization Address City/State/[place] [address] Karyotyping, Bone Marrow (10/24/2018 3:10 PM EDT) [facility] Method Time Signature Humberto, JULISA Bone Marrow Test ?Result ? Flag ??Unit ??RefValue [facility] Chromosomes, Hematologic, BM H OSPITAL ??Result Summary ?Normal LABORATORY ??Interpretation ?No clonal abnormality was apparent. ??Result ?46, XY[20] ??Reason for Referral ? SEE COMMEN TS ?significant weight loss over four months, persistent ?macrocytic anemia ??Specimen ?Bone Marrow ??Source ?Lef t hip ??Method ?Culture without mitogens ??Banding Method ?SEE COM MENTS ?Band Resolution: ?<400 ? ----- ? Stain Name ?Cells Analyzed ?? Cells ? K aryograms ?Counted ? Prepared ? GTL ? 20 ? 0 ? 2 ? Total ? 20 ? 0 ? 2 ? ----- ?Kitchen to Stain Name: GTL=G-banding; QFQ=Q-banding; ?DAPI=DAPI-staining; CBL=C-banding; AGNOR=Silver-staini ng; ?NON=Non-banded ?The sum of Cells Analyzed and Cells Counted equals the ?total cells examined. ??Released By ? Anya Lindquist M.D. ?Test Performed by: ?[facility] ?[address] [place] [address] Specimen Anatomical Collection Method Collection Time Receive d Time (Source) Location / / Volume Laterality Bone marrow HLX Bone Marrow / 10/24/2018 3:10 PM 0 08/2018 7:50 specimen Unknown EDT AM EDT (specimen) Sergey Cook MD CHEMISTRY ORDERABLES Performing Organization Address City/State/ZIP [place] [address] Immunophenotyping Flow Cytometry (10/24/2018 3:10 PM EDT) Component Value Ref Test Analysis Performed At [facility] Range Method Time Signature Immunophenotyping See JULISA Flow Comment [facility] LABORATORY Comment: When completed by the Pathologist, the F low Cytometry Report ([id number]) will display under the Pathology Result s section within eDH. Specimen Anatomical Collection Method Collection Time Receive d Time (Source) Location / / Volume Laterality Bone marrow 10/24/2018 3:10 PM 9 3:34 specimen EDT PM EDT (specimen) Resulting Agency Comment Spec In Lab Sergey Cook MD HEMATOLOGY ORDERABLES Performing Organization Address City/[facility]/ZIP Code Phon e Number [address] Iron Stain, Bone Marrow (10/24/2018 3:10 PM EDT) Patholo gist Method Time Signature Iron Stain BM See Comment [facility] LAB[facility] Comment: See Bone Marrow Report [id number] under Hematopathology Reports. Specimen Anatomical Collection Method Collection Time Receive d Time (Source) Location / / Volume Laterality Bone marrow 10/24/2018 3:10 PM 9 3:34 specimen EDT PM EDT (specimen) Resulting Agency Comment Spec In Lab Sergey Cook MD HEMATOLOGY ORDERABLES Performing Organization Address City/[facility]/ZIP Code Phon e Number [address] Differential, Automated (10/24/2018 2:40 PM EDT) P athologist Signature Neutrophils % 59.4 % [facility] LAB[facility]ORY Neutr Abs (ANC) 4.57 1.70 - [facility] 6.10 [facility] x10(3)/[facility] LABORATORY Lymphocytes % 31.9 % [facility] LABOR[facility]ORY Lymphocytes Abs 2.5 0.9 - 3.2 [facility] x10(3)/[facility] LABORATORY Monocytes % 7.1 % [facility] LABORATORY Monocyte Abs 0.6 0.3 - 0.9 [facility] x10(3)/[facility] LABORATORY Eosinophils % 0.8 % [facility] LABORATORY Eosinophils Abs 0.1 0.0 - 0.4 [facility] x10(3)/[facility] LABORATORY Basophils % 0.5 % [facility] LABORATORY Basophils Abs 0.0 0.0 - 0.1 [facility] x10(3)/[facility] LABORATORY Immature Gran % 0.30 % [facility] LAB[facility] Comment: Immature granulocytes(IG's)percentage an d absolute count will include metamyelocytes, myelocytes, and promyelo cytes. Blood smears from CBCs yielding IG's will be scanned manually for concor dance. If this scan disagrees with the automated IG or if promyelocytes are not ed, a manual differential will be performed. Neda Gran Abs 0.02 0.00 - 0.04 x10(3)/[facility] Y [facility] LABORATORY Specimen Anatomical Collection Method Collection Time Receive d Time (Source) Location / / Volume Laterality Blood specimen 10/24/2018 2:40 PM 019 2:49 (specimen) EDT PM EDT Resulting Agency Comment Spec In Lab Sergey Cook MD HEMATOLOGY ORDERABLES Performing Organization Address City/State/[place] [address] (ABNORMAL) Hemogram (10/24/2018 2:40 PM EDT) [facility] gist Method Time Signature WBC 7.7 4.0 - 9.5 [facility] x10(3)/[facility] LABORATORY RBC 3.97 (L) 4.58 - [facility] 5.54 [facility] x10(6)/[facility] LABORATORY Hemoglobin 14.1 13.7 - [facility] 16.5 gm/dL [facility] LABORATORY Hematocrit 41.0 40.5 - [facility] 48.5 % [facility] LABORATORY MCV 103.3 (H) 82.9 - JULISA RACIEL 93.1 [facility] LABORATORY MCH 35.5 (H) 27.5 - [facility] 32.1 pg [facility] LABORATORY MCHC 34.4 32.0 - [facility] 35.7 gm/dL [facility] LABORATORY Platelets 162 145 - 357 [facility] x10(3)/[facility] LABORATORY RDWSD 48.0 (H) 36.0 - [facility] 45.0 [facility] LABORATORY RDWCV 12.6 11.4 - [facility] 13.8 % [facility] LABORATORY MPV 11.1 7.6 - 12.9 [facility] LABORATORY nRBC % Auto 0.0 % [facility] LABORATORY nRBC Abs Auto 0.000 0.000 - [facility] 0.000 [facility] x10(3)/[facility] LABORATORY Specimen Anatomical Collection Method Collection Time Receive d Time (Source) Location / / Volume Laterality Blood specimen 10/24/2018 2:40 PM 019 2:49 (specimen) EDT PM EDT Resulting Agency Comment Spec In Lab Sergey Cook MD HEMATOLOGY ORDERABLES Performing Organization Address City/State/[place] [address] documented in this encounter Visit Diagnoses Not on filedocumented in this encounter Administered Medications Inactive Administered Medications - up to 3 most recent administrations Medication Order MAR Action Action Date Dose Rate Site fentaNYL 50 mcg/mL multi-dose Given 10/24/2018 3:08 PM EDT 25 mc g injection 25-50 mcg, Intravenous, EVERY 5 MIN PRN, Starting on Wed10/24/18 at 1357, Until Wed10/24/18 at 1551, Pain, Hold for respiratory rate less than 8 breaths per minute. (maximum dose 200 mcg), Intra-Operative (Intra-Procedure), Routine Given 10/24/2018 3:03 PM EDT 50 mcg lidocaine (XYLOCAINE) 10 mg/mL (1 %) inj ection 3 mg 3 mg (0.3 mL), Subcutaneous, ONCE PRN, 1 dose, Startin g on Wed10/24/18 at 1357, Until Wed10/24/18 at 1551, for discomfort with PIV insertion, Day of Surgery (Day of Procedure), Routine midazolam (PF) (VERSED) multi-dose injection Given 10/24/2018 3: 08 PM EDT 1 mg 0.5-2 mg 0.5-2 mg, Intravenous, EVERY 5 MIN PRN, Starting on Wed10/24/18 at 1357, Until Wed10/24/18 at 1551, Sleep, Anxiety, Hold for delirium/agitation. (Maximum dose 5 mg)., Intra-Operative (Intra-Procedure), Routine Given 10/24/2018 3:03 PM EDT 1 mg naloxone (NARCAN) injection 0.1 mg 0.1 mg, Intravenous, EVERY 2 MIN PRN, Starting on Wed10/24/18 at 1357, Until Wed10/24/18 at 1551, Opioid Reversal, Opiate induced overse dation or respiratory depression. (maximum dose of 0.8 mg), In tra-Operative (Intra-Procedure), Routine sodium chloride 0.9 % (flush) flush 5 mL 5 mL, Intravenous, EVERY 12 HOURS, First dose on Wed at 1415, Until Discontinued, Day of Surgery (Day of Procedure), Routi ne sodium chloride 0.9 % (flush) flush 5-20 mL 5-20 mL, Intravenous, EVERY 1 MIN PRN, S tarting on Wed10/24/18 at 1357, Until Wed10/24/18 at 1551, flush, Flush pertains to all indwelling lines. Flush per protocol found in the job aid using the link provided on this m edication record., Day of Surgery (Day of Procedure), Routine sodium chloride 0.9% infusion 1,000 mL, at 100 mL/hr, Intravenous, CON TINUOUS, Starting on Wed10/24/18 at 1415, Until Wed10/24/18 at 1551, Day of Surgery (Day of Proce dure) documented in this encounter Active and Recently Administered Medications Times are shown in EDT. Scheduled Medication Order 10/22/2018 10/23/2018 10/24/2018 sodium chloride 0.9 % (flush) flush 5 mL 1415 (Due) 5 mL, Intravenous, EVERY 12 HOURS, First dose on Wed10/24/18 at 1415, Until Discontinued, Day of Surgery (Day of Procedure), Routine Continuous Medication Order 10/22/2018 10/23/2018 10/24/2018 sodium chloride 0.9% infusion 14 15 (Due) 1,000 mL, at 100 mL/hr, Intravenous, CON TINUOUS, Starting Wed10/24/18 at 1415, Until Wed10/24/18 at 1551, Day of Surgery (Day of Procedure) PRN Medication Order 10/22/2018 10/23/2018 10/24/2018 fentaNYL 50 mcg/mL multi-dose injection 1503 (Given - Provider: Graciela Paulino RN)1508 (Given - Provider: Graciela Paulino RN) 25-50 mcg, Intravenous, EVERY 5 MIN PRN, Starting Wed10/24/18 at 1357, Until Wed10/24/18 at 1551, Pain, Hold for respiratory rate less than 8 breaths per minute. (maximum dose 200 mcg), Intra-Operative (Intra-Procedure), Routine lidocaine (XYLOCAINE) 10 mg/mL (1 %) injection 3 mg 3 mg (0.3 mL), Subcutaneous, ONCE PRN, 1 dose, Starting Wed10/24/18 at 1357, Until Wed10/24/18 at 1551, for discomfort with PIV insertion, Day of Surgery (Day of Procedure), Routine midazolam (PF) (VERSED) multi-dose injection 0.5-2 mg 1503 (Given - Provider: Graciela Paulino RN)1508 (Given - Provider: Graciela Paulino RN) 0.5-2 mg, Intravenous, EVERY 5 MIN PRN, Starting Wed10/24/18 at 1357, Until Wed10/24/18 at 1551, Sleep, Anxiety, Hold for delirium/agitation. (Maximum dose 5 mg)., Intra-Operative (Intra-Procedure), Routine naloxone (NARCAN) injection 0.1 mg 0.1 mg, Intravenous, EVERY 2 MIN PRN, St arting Wed10/24/18 at 1357, Until 10/24/18 at 1551, Opioid Reversal, Opiate induced oversedation or respiratory depression. (maximum dose of 0.8 mg), Intra-Operative (Intra-Procedure), Routine sodium chloride 0.9 % (flush) flush 5-20 mL 5-20 mL, Intravenous, EVERY 1 MIN PRN, S tarting Wed10/24/18 at 1357, Until 10/24/18 at 1551, flush, Flush pertains to all indwelling lines. Flush per protocol found in the job aid using the link provid ed on this medication record., Day of Surgery (Day of Procedure) , Routine No Frequency Medication Order 10/22/2018 10/23/2018 10/24/2018 heparin, porcine (PF) 1,000 unit/mL injection 1445 (Due) 1 dose, Starting Wed10/24/18 at 1434, Unt il 10/25/18 at 0244, GRACIELA PAULINO: cabinet override documented in this encounter Care Teams Disability Case Manager Relationship Specialty Start Date End Date William Wade PA PCP - General Family Medicine 08/31/[address] [place] [address] [place] [address] documented as of this encounter
--- OUTSIDE RECORDS SUMMARY | 2021-11-07 00:56 | XMS_ITS | Encounter Summary ---
:1955 Author Organization [facility] [place] [address] Care Team Providers Name Role Phone William Wade Primary Care Provider Reason for Visit Auth/Cert Specialty Diagnoses / Procedures Referred By Contact Refer red To Contact Diagnoses Macrocytic anemia with weight loss Procedures PRO DIAGNOSTIC BONE MARROW BIOPSIES & ASPIRATIONS (OSC MSURG) BONE MARROW BIOPSY AND ASPIRATION; DIAGNOSTIC Referral ID Status Reason Start Date Expiration Date Visits Requ ested Visits Authorized [id number] 1 1 Encounter Details Date Type Department Care Team Description 10/24/2018 Hospital Encounter Outpatient Surgery Bon Cook, [place] Julisa Jorge [facility] [place] [address] [place] [address] [phone] Social History Tobacco Use Types Packs/Day Years [...] documented in this encounter Discharge Instructions Discharge InstructionsGraciela Cuevas RN - 10/24/2018 2:31 PM EDT OUTPATIENT [...] 5pm or on a weekend: Call the [facility] chain hoist operator at and ask for the physician senior applications analyst covering for your doctor. Instructions following sedation [...] drainage occurs, please contact your M. D. [facility] [address] ??? [place] [address] ??? [phone] ??? [email or web address] HospitalMetasaint [facility]–bar[facility] roadYieldr ??? [facility] ??? [facility] ??? [facility] documented in this encounter Medications at [...] as of this encounter Progress Notes Graciela Cuevas RN - 10/24/2018 3:24 PM EDT Discharge instructions and medications reviewed with patient in pre-op. All questions answered and written copy sent home with patient. Graciela Cuevas RN - 10/24/2018 3:22 PM EDT Date/Procedure: Meds Given Comments 10/24/18 2 mg versed (1,1); 75 mcg fentanyl (50, 25) Pt tolerated the procedure well; no c/o pain or discomfort. documented in this encounter H&P Notes Flower Morocho APRN - 10/24/2018 2:39 PM EDT [...] Streeter MD [facility] ONCOLOGY [place], [place] [address] (Wo rk) 11/07/2021 Infusion Hematology and Oncology 11/07/2021 Office Visit Hematology and Oncology Irena Hinojosa RD [facility] DRIVE HEMATOLOGY AND O NCOLOGY [place], [place] [address] (Wo rk) 11/21/2021 Office Visit Hematology and Oncology Eric Streeter MD [facility] DR [place], [place] [address] (Wo rk) 11/21/2021 Infusion Hematology and Oncology 12/05/2021 Office Visit Hematology and Oncology Eric Streeter MD [facility] DR [place], [place] [address] (Wo rk) 12/05/2021 Infusion Hematology and Oncology 12/19/2021 Office Visit Hematology and Oncology Eric Streeter MD [facility] DR [place], [place] [address] (Wo rk) 12/19/2021 Infusion Hematology and Oncology documented as of this encounter Procedures Procedure Name Priority Date/Time Associated Comments Diagnosis KARYOTYPING, BONE MARROW Routine 10/24/2018 3:10 Results for this -[facility] EDT procedure are i n the [...] section. BONE MARROW PANEL Routine 10/24/2018 3:10 ([facility]/CGP/APD) PM EDT ([facility]C MSURG) BONE MARROW 10/24/2018 [...] Value Ref Test Analysis Performed At [facility] gist Range Method Time Signature Bone Marrow [id number] ? Location: [facility] Final Report SAVANNA The signing pathologist has (i) examined the [...] Dalton MD Verified: ??10/25/2018 ?Hematopathologist Performed at: ??-[facility] Dept. of Pathology, [place], [place] DISCUSSION The erythrocytes have an increased [...] si deroblasts. DIFFERENTIAL Band/Seg 27.5%; Lymph 13.0%; Moore 7.0%; Eos 2.0%; Baso 1.0%; Metamyelocyte 11.5%; [...] Dalton MD Verified: ??10/25/2018 ?Hematopathologist Performed at: ??-[facility] Dept. of Pathology, [place], [place] DISCUSSION The IQ07-nul low-SSC flow histogram region shows no increase [...] the Clinical Flow Cytometry Lab oratory at [facility]. It has not been cleared or approve [...] complexity clinic al laboratory testing. SPECIMEN PROCESSING [id number] Cells for immunophenotypic a nalysis were derived [...] A bone marrow biopsy was procured to [facility] for hematologic malignancy. Tissue was submitted for flow cytometry. Specimen (Source) Anatomical Collection Method Collection Time Re ceived Time Location / / Volume Laterality 10/24/2018 3:10 PM EDT Sergey Cook MD PATHOLOGY/CYTOLOGY ORDERABLE S Performing Organization Address City/State/ZIP [place] [address] Karyotyping, Bone Marrow (10/24/2018 3:10 PM EDT) [facility] Method Time Signature Karyarnie, JULISA Bone Marrow Test ?Result ? Flag ??Unit ??RefValue [facility] Chromosomes, Hematologic, BM H OSPITAL ??Result Summary ?Normal LABORATORY ??Interpretation ?No clonal abnormality was apparent. ??Result ?46, XY[20] ??Reason for Referral ? SEE BARRY TS ?significant weight loss over four months, [...] ? Anya Lindquist M.D. ?Test Performed by: ?[facility] ?[address] [id number] Specimen Anatomical Collection Method Collection Time Receive d Time (Source) Location / / Volume Laterality Bone marrow HLX Bone Marrow / 10/24/2018 3:10 PM 08/2018 7:50 specimen Unknown EDT AM EDT (specimen) Sergey Cook MD CHEMISTRY ORDERABLES Performing Organization Address City/State/ZIP Code [place] [address] Immunophenotyping Flow Cytometry (10/24/2018 3:10 PM EDT) Component Value Ref Test Analysis Performed At [facility] Range Method Time Signature Immunophenotyping See JULISA Flow Comment [facility] LABORATORY Comment: When completed by the Pathologist, the F low Cytometry Report ([id number]) will display under the Pathology Result s section within eDH. Specimen Anatomical Collection Method Collection Time Receive d Time (Source) Location / / Volume Laterality Bone marrow 10/24/2018 3:10 PM 9 3:34 specimen EDT PM EDT (specimen) Resulting Agency Comment Spec In Lab Sergey Cook MD HEMATOLOGY ORDERABLES Performing Organization Address City/[facility]/ZIP Code Phon e Number [address] Iron Stain, Bone Marrow (10/24/2018 3:10 PM EDT) Patholo gist Method Time Signature Iron Stain BM See Comment [facility] LABOR[facility] Comment: See Bone Marrow Report [id number] under Hematopathology Reports. Specimen Anatomical Collection Method Collection Time Receive d Time (Source) Location / / Volume Laterality Bone marrow 10/24/2018 3:10 PM 9 3:34 specimen EDT PM EDT (specimen) Resulting Agency Comment Spec In Lab Sergey Cook MD HEMATOLOGY ORDERABLES Performing Organization Address City/[facility]/ZIP Code Phon e Number [address] Differential, Automated (10/24/2018 2:40 PM EDT) P athologist Signature Neutrophils % 59.4 % [facility]OR[facility] Neutr Abs (ANC) 4.57 1.70 - [facility] 6.10 [facility] x10(3)/[facility] LABORATORY Lymphocytes % 31.9 % [facility] Lymphocytes Abs 2.5 0.9 - 3.2 [facility] x10(3)/[facility] LABORATORY Monocytes % 7.1 % [facility] Monocyte Abs 0.6 0.3 - 0.9 [facility] x10(3)/[facility] LABORATORY Eosinophils % 0.8 % [facility] Eosinophils Abs 0.1 0.0 - 0.4 [facility] x10(3)/[facility] LABORATORY Basophils % 0.5 % [facility] Basophils Abs 0.0 0.0 - 0.1 [facility] x10(3)/[facility] LABORATORY Immature Gran % 0.30 % [facility] Comment: Immature granulocytes(IG's)percentage an d absolute count will include metamyelocytes, myelocytes, and promyelo cytes. Blood smears from CBCs yielding IG's will be scanned manually for concerlinda danjohn. If this scan disagrees with the automated IG or if promyelocytes are not ed, a manual differential will be performed. Neda Gran Abs 0.02 0.00 - 0.04 x10(3)/[facility] MAR Y [facility] LABORATORY Specimen Anatomical Collection Method Collection Time Receive d Time (Source) Location / / Volume Laterality Blood specimen 10/24/2018 2:40 PM 019 2:49 (specimen) EDT PM EDT Resulting Agency Comment Spec In Lab Sergey Cook MD HEMATOLOGY ORDERABLES Performing Organization Address City/State/ZIP [place] [address] (ABNORMAL) Hemogram (10/24/2018 2:40 PM EDT) [facility] gist Method Time Signature WBC 7.7 4.0 - 9.5 [facility] x10(3)/[facility] LABORATORY RBC 3.97 (L) 4.58 - [facility] RACIEL 5.54 [facility] x10(6)/[facility] LABORATORY Hemoglobin 14.1 13.7 - [facility] 16.5 gm/dL [facility] LAB[facility]AT[facility] Hematocrit 41.0 40.5 - JULISA RACIEL 48.5 % [facility] LABORATORY MCV 103.3 (H) 82.9 - JULISA RACIEL 93.1 [facility] LABORATORY MCH 35.5 (H) 27.5 - JULISA RACIEL 32.1 pg [facility]ORAT[facility] MCHC 34.4 32.0 - [facility] RAC[facility] 35.7 gm/dL [facility] Platelets 162 145 - 357 [facility] x10(3)/[facility] RDWSD 48.0 (H) 36.0 - JULISA RACIEL 45.0 [facility] LABORATORY RDWCV 12.6 11.4 - [facility] RAC[facility] 13.8 % [facility] LABORAT[facility] MPV 11.1 7.6 - 12.9 [facility] LABORATORY nRBC % Auto 0.0 % [facility] LABORATORY nRBC Abs Auto 0.000 0.000 - [facility] 0.000 [facility] x10(3)/[facility] LABORATORY Specimen Anatomical Collection Method Collection Time Receive d Time (Source) Location / / Volume Laterality Blood specimen 10/24/2018 2:40 PM 019 2:49 (specimen) EDT PM EDT Resulting Agency Comment Spec In Lab Sergey Cook MD HEMATOLOGY ORDERABLES Performing Organization Address City/State/ZIP [place] [address] documented in this encounter [...] multi-dose injection 1503 (Given - Provider: Graciela Cuevas RN)1508 (Given - Provider: Graciela Cuevas RN) 25-50 mcg, Intravenous, EVERY 5 MIN [...] 0.5-2 mg 1503 (Given - Provider: Graciela Cuevas RN)1508 (Given - Provider: Graciela Cuevas RN) 0.5-2 mg, Intravenous, EVERY 5 MIN PRN, Starting Wed10/24/18 at 1357, Until Wed10/24/18 at 1551, Sleep, Anxiety, Hold for delirium/agitation. (Maximum dose 5 mg)., Intra-Operative (Intra-Procedure), Routine naloxone (NARCAN) injection 0.1 mg 0.1 mg, Intravenous, EVERY 2 MIN PRN, St arting Wed10/24/18 at 1357, Until Wed10/24/18 at 1551, Opioid Reversal, Opiate induced oversedation or respiratory depression. (maximum dose of 0.8 mg), Intra-Operative (Intra-Procedure), Routine sodium chloride 0.9 % (flush) flush 5-20 mL 5-20 mL, Intravenous, EVERY 1 MIN PRN, S tarting Wed10/24/18 at 1357, Until Wed10/24/18 at 1551, [...] 1434, Unt il 10/25/18 at 0244, GRACIELA CUEVAS: cabinet override documented in this encounter Care Teams Maintenance Repairman Relationship Specialty Start Date End Date William Wade PA PCP - General Family Medicine 08/31/[address] [place] [address] [place] [address] documented as of this encounter
--- OUTSIDE RECORDS SUMMARY | 2021-11-07 00:56 | XMS_ITS | Encounter Summary ---
:1955 [place] [address] Care Team Providers Name Role Phone William Wade Primary Care Provider Reason for Visit Consultation (Routine) - Closed Specialty Diagnoses / Procedures Referred By Contact Refer red To Contact Vascular Surgery Diagnoses Occlusion and stenosis of left carotid artery Occlusion and stenosis of left carotid artery William Wade PA [facility] Vascular Surg [address] [facility] [place] [address] [place] [address] Phone: Referral ID Status Reason Start Date Expiration Date Visits V isits Requested Authorized [id number] Closed Consult, 06/21/2019 06/20/2020 2 2 Test & Treat Encounter Details Date Type Department Care Team Description 07/28/2019 Tech Visit Vascular Lab at [address] enosis of [facility] RVT artery[place] [address] Social History Tobacco Use Types Packs/Day [...] Eric Streeter MD [facility] ONCOLOGY [place], [place] [address] (Wo rk) 11/07/2021 Infusion Hematology and Oncology 11/07/2021 Office Visit Hematology and Oncology Irena Hinojosa RD [facility] HEMATOLOGY AND [place], [place] [address] (Wo rk) 11/21/2021 Office Visit Hematology and Oncology Eric Streeter MD [facility] ONCOLOGY [place], [place] [address] (Wo rk) 11/21/2021 Infusion Hematology and Oncology 12/05/2021 Office Visit Hematology and Oncology Eric Streeter MD [facility] DR URE[address]A [place], [place] [address] (Wo rk) 12/05/2021 Infusion Hematology and Oncology 12/19/2021 Office Visit Hematology and Oncology Eric Streeter MD [facility] ONCOLOGY [place], [place] [address] (Wo rk) 12/19/2021 Infusion Hematology and Oncology documented as of this encounter Procedures Procedure Name Priority Date/Time Associated Diagnosis Comme nts CAROTID DUPLEX, Routine 07/28/2019 1:20 PM Stenosis of carotid Results for this BILATERAL EDT artery, unspecified procedur e are in laterality the results section. documented in this encounter Results Carotid Duplex, Bilateral (07/28/2019 1:20 PM EDT) Component Value Ref Test Analysis Performed At [facility] Method Time Signature VB Text Department: Vascular Surgery Lab [facility] Report Patient: [id number] (JOHN DUARTE) CPT: 92216 ICD10: I65.23 Referring Physician: JERRICA REN, BINDERY MANAGER ?? Phone: Indications: Bilateral carotid stenosis, ? [...] Laterality 07/28/2019 1:20 PM EDT Jerrica Ren BINDERY MANAGER VASCULAR ORDERABLES Performing Organization Address City/State/ZIP Code Phon e Number [facility] documented in this encounter Visit Diagnoses Diagnosis Stenosis of carotid artery, unspecified laterality Malignant neoplasm of head of pancreas documented in this encounter Care Teams Angular Developer Relationship Specialty Start Date End Date William Wade PA PCP - General Family Medicine 08/31/[address] [place] [address] [place] [address] documented as of this encounter
--- OUTSIDE RECORDS SUMMARY | 2021-11-07 00:58 | XMS_ITS | Clinical Summary ---
:1955 Author Organization [facility] Address [address] [place] [address] Care Team Providers Name Role Phone None, Provider Primary Care Provider Unavailable Encounters Date Type Specialty Care Team Description 10/29/2021 Lab Requisition Clinical Laboratory Outr Resulting Lab , Provider 08/08/2021 Lab Requisition Clinical Laboratory Outr Resulting Lab , Provider 08/07/2021 Lab Requisition Clinical Laboratory Outr Resulting Lab , Provider from Last 3 Months Social History Tobacco Use Types Packs/Day Years Used Date Never Assessed Sex Assigned at Date Recorded Not on file Plan of Treatment Health Maintenance Due Date Last Done Comments Fall Risk Screening 06/10/2019 Procedures Procedure Name Priority Date/Time Associated Diagnosis Comme nts AST Routine 10/29/2021 11:06 EDT Results for this procedure are i n the results section . INSULIN Routine 08/08/2021 12:59 EDT Results for this procedure are i n the results section . INSULIN Routine 08/07/2021 7:22 EDT Results for this procedure are i n the results section . from Last 3 Months Results AST (10/29/2021 11:06 EDT) Pathologist Sig nature AST 32 15 - 46 U/L [facility] LABORATOR Y SERVICES Specimen Blood - Venous blood (substance) Performing Organization Address [facility] Code Phon e Number [facility] [address] [place] [address] SERVICES INSULIN (08/08/2021 12:59 EDT)Only the most recent of2 resultswithin the time period is included. Pathologist Sig nature Insulin 7.9 <29.0 uIU/mL [facility] Comment: LABORATORY SERVICES Displayed Reference Range applies to fasting specimens only. Specimen Blood - Venous blood (substance) Performing Organization Address [facility] Phon e Number [facility] [address] [place] [address] SERVICES from Last 3 Months Insurance Payer Benefit Plan / Subscriber ID Effective Phone Address T ype Group Dates [facility] [id number] 2020-Pres [address] [facility] [address] [employer] MEDICARE MEDICARE [place], [place] [address] Jeff Duarte Personal/Family Self 1955 [address] (Home) [place] [address] Jeff Duarte Personal/Family Self 1955 [address] (Home) [place] [address] Jeff Duarte Personal/Family Self 1955 [address] (Home) [place] [address] Jeff Duarte Personal/Family Self 1955 [address] (Home) [place] [address] Care Teams Sealing And Canceling Machine Operator Relationship Specialty Start Date End Date None, Provider PCP - General 01/20/19
--- OUTSIDE RECORDS SUMMARY | 2021-11-07 00:58 | XMS_ITS | Encounter Summary ---
:1955 Author Organization [facility] Address [address] [place] [address] Care Team Providers Name Role Phone None, Provider Primary Care Provider Unavailable Encounter Details Date Type Department Care Team Description 10/29/2021 Lab Requisition [facility] Outr Resulting Lab, Pathology & Laboratory Provider [facility] [address] [id number] Social History Tobacco Use Types Packs/Day Years Used Date Never Assessed Sex Assigned at Date Recorded Not on file documented as of this encounter Plan of Treatment Not on filedocumented as of this encounter Procedures Procedure Name Priority Date/Time Associated Diagnosis Comme nts AST Routine 10/29/2021 11:06 EDT Results for this procedure are i n the results section . documented in this encounter Results AST (10/29/2021 11:06 EDT) Pathologist Sig nature AST 32 15 - 46 U/L [facility] LABORATOR Y SERVICES Specimen Blood - Venous blood (substance) Performing Organization Address City/State/ZIP Code Phon e Number [facility] [address] [place] [address] SERVICES documented in this encounter Visit Diagnoses Not on filedocumented in this encounter Care Teams Formulator Relationship Specialty Start Date End Date None, Provider PCP - General 01/20/19 documented as of this encounter
--- OUTSIDE RECORDS SUMMARY | 2021-11-07 00:58 | XMS_ITS | Encounter Summary ---
:1955 Author Organization [facility] Address [address] [place] [address] Care Team Providers Name Role Phone None, Provider Primary Care Provider Unavailable Encounter Details Date Type Department Care Team Description 08/02/2020 Lab Requisition [facility] William Wade of Pathology & JLIBRADO micturition Laboratory Medicine [address] [place] [address] [address] [place] [address] [place], [place] [id number] Social History Tobacco Use Types Packs/Day Years Used Date Never Assessed Sex Assigned at Date Recorded Not on file documented as of this encounter Plan of Treatment Not on filedocumented as of this encounter Procedures Procedure Name Priority Date/Time Associated Diagnosis Comme nts NON PHOTOGRAPHIC PLATEMAKER/FNA 08/05/2020 12:13 Frequency of Results for this CYTOLOGY EDT micturition procedure are i n the results section. NON PHOTOGRAPHIC PLATEMAKER/FNA Today 08/02/2020 14:46 Results for this CYTOLOGY EDT procedure are i n the results section. documented in this encounter Results NON PHOTOGRAPHIC PLATEMAKER/FNA CYTOLOGY (08/05/2020 12:13 EDT) Pathologist Sig nature Final Diagnosis A. URINE, VOIDED, CYTOLOGIC EVALUATION: [facility] - Negative for high-grade urothelial carcinoma. [facility] Attestation By the signature below, the attending physician certifies that they have personally conducted a gross and/or microscopic [facility] Electronically signed examination of the described specimens and rendered or confirmed the above diagnosis. [facility] by Torito Laughlin MD on 08/05/2020 at 12 13 Clinical History Increased frequency [facility] of urination; R35.0 [facility] Gross Description A. [facility] 80cc's of clear dark yellow fluid were received and processed by selective cellular enhancement technique. [facility] Performing Lab [facility] Scanned Images [facility] Specimen ZZUNK - Voided urine specimen (specimen) Performing Organization Address [facility]/ZIP Code Phon e Number [facility] [address] [place] [address] SERVICES NON PHOTOGRAPHIC PLATEMAKER/FNA CYTOLOGY (08/02/2020 14:46 EDT) Pathologist Sig nature Final Diagnosis A. URINE, VOIDED, CYTOLOGIC EVALUATION: [facility] - Negative for high-grade urothelial carcinoma. [facility] Attestation By the signature below, the attending physician certifies that they have personally conducted a gross and/or microscopic [facility] Electronically signed examination of the described specimens and rendered or confirmed the above diagnosis. [facility] by Torito Laughlin MD on 08/05/2020 at 12 13 Clinical History Increased frequency [facility] of urination; R35.0 [facility] Gross Description [facility] 80cc's of clear dark yellow fluid were received and processed by selective cellular enhancement technique. [facility] Performing Lab [facility] Scanned Images [facility] Specimen ZZUNK - Voided urine specimen (specimen) Performing Organization Address City/[facility]/ZIP Code Phon e Number [facility] [address] [place] [address] SERVICES documented in this encounter Visit Diagnoses Diagnosis Frequency of micturition Urinary frequency documented in this encounter Care Teams Advertising Rep Relationship Specialty Start Date End Date None, Provider PCP - General 01/20/19 documented as of this encounter
--- OUTSIDE RECORDS SUMMARY | 2021-11-07 00:58 | XMS_ITS | Encounter Summary ---
:[address] [facility] Address [address] [place] [address] Care Team Providers Name Role Phone None, Provider Primary Care Provider Unavailable Encounter Details Date Type Department Care Team Description 08/07/2021 Lab Requisition [facility] Outr Resulting Lab, Pathology & Laboratory Provider [facility] [address] [id number] Social History Tobacco Use Types Packs/Day Years Used Date Never Assessed Sex Assigned at Date Recorded Not on file documented as of this encounter Plan of Treatment Not on filedocumented as of this encounter Procedures Procedure Name Priority Date/Time Associated Diagnosis Comme nts INSULIN Routine 08/07/2021 7:22 EDT Results for this procedure are i n the results section . documented in this encounter Results INSULIN (08/07/2021 7:22 EDT) Pathologist Sig nature Insulin <3.0 <29.0 uIU/mL [facility] Comment: LABORATORY SERVICES Displayed Reference Range applies to fasting specimens only. Specimen Blood - Venous blood (substance) Performing Organization Address City/State/ZIP Code Phon e Number [facility] [address] [place] [address] SERVICES documented in this encounter Visit Diagnoses Not on filedocumented in this encounter Care Teams Robot Programmer Relationship Specialty Start Date End Date None, Provider PCP - General 01/20/19 documented as of this encounter
--- OUTSIDE RECORDS SUMMARY | 2021-11-07 00:59 | XMS_ITS | Encounter Summary ---
:1955 Author Organization [facility] Address [address] [place] [address] Care Team Providers Name Role Phone None, Provider Primary Care Provider Unavailable Encounter Details Date Type Department Care Team Description 07/29/2020 Lab Requisition [facility] Outr Resulting Lab, Pathology & Laboratory Provider [facility] [address] [place] [address] Social History Tobacco Use Types Packs/Day Years Used Date Never Assessed Sex Assigned at Date Recorded Not on file documented as of this encounter Plan of Treatment Not on filedocumented as of this encounter Procedures Procedure Name Priority Date/Time Associated Diagnosis Comme nts CHLORIDE, URINE Routine 07/29/2020 11:07 Results for this RANDOM EDT procedure are i n the results section. documented in this encounter Results CHLORIDE, URINE RANDOM (07/29/2020 11:07 EDT) Chloride, Urine 245 See Note [facility] Comment: mEq/L [facility] NOTE: SERVICES Reference range has not been established for chloride concentration in random urine specimens. Specimen Urine - Urine specimen collection, clean catch (procedure) Performing Organization Address City/State/ZIP Code Phon e Number [facility] [address] [place] [address] SERVICES documented in this encounter Visit Diagnoses Not on filedocumented in this encounter Care Teams Premix Concrete Batcher Relationship Specialty Start Date End Date None, Provider PCP - General 01/20/19 documented as of this encounter
--- OUTSIDE RECORDS SUMMARY | 2021-11-07 00:59 | XMS_ITS | Encounter Summary ---
:[address] [facility] Address [address] [place] [address] Care Team Providers Name Role Phone None, Provider Primary Care Provider Unavailable Encounter Details Date Type Department Care Team Description 07/29/2020 Lab Requisition [facility] William Wade for other Pathology & J PA general examination Laboratory Medicine [address] [place] [address] [address] [place] [address] [place], [place] [id number] Social History Tobacco Use Types Packs/Day Years Used Date Never Assessed Sex Assigned at Date Recorded Not on file documented as of this encounter Plan of Treatment Not on filedocumented as of this encounter Procedures Procedure Name Priority Date/Time Associated Diagnosis Comme nts NON POCKET AND PULLEY MACHINE OPERATOR/FNA Today 07/29/2020 11:06 Results for this CYTOLOGY EDT procedure are i n the results section. documented in this encounter Results NON POCKET AND PULLEY MACHINE OPERATOR/FNA CYTOLOGY (07/29/2020 11:06 EDT) Pathologist Sig nature Final Diagnosis URINE, VOIDED, CYTOLOGIC EVALUATION: [facility] - Negative for high grade urothelial carcinoma. [facility] - Less than optimal sample. See comment. SERVICES Diagnosis Comment The specimen received has lo w volume (10ml) and is scantly cellular. Based on literature, volumes less than 25 ml have been associated with lower detection rate of high grade urothelial carcinoma in [facility] ded urine. A repeat urine sample may be indicated. [facility] Attestation There was significant reside nt/fellow involvement in the diagnostic evaluation of this case. [facility] Electronically signed By the signature below, the attending physician certifies that they have personally conducted a gross and/or microscopic [facility] by Angela Robison examination of the described specimens and rendered or confirmed the above diagnosis. SERVICES MD Gladys on 07/30/2020 at 15 01 Clinical History Not listed [facility] Gross Description [facility] 10cc's of clear yellow fluid were received and processed by selective cellular enhancement technique. [facility] Resident/Fellow: Evelia Rudolph MD [facility] Performing Lab [facility] Scanned Images [facility] Specimen ZZUNK - Voided urine specimen (specimen) Performing Organization Address City/State/ZIP Code Phon e Number [facility] [address] [place] [address] SERVICES documented in this encounter Visit Diagnoses Diagnosis Encounter for other general examination documented in this encounter Care Teams Cookie Padder Relationship Specialty Start Date End Date None, Provider PCP - General 01/20/19 documented as of this encounter
--- OUTSIDE RECORDS SUMMARY | 2021-11-07 00:59 | XMS_ITS | Encounter Summary ---
:1955 Author Organization [facility] Address [address] [place] [address] Care Team Providers Name Role Phone None, Provider Primary Care Provider Unavailable Encounter Details Date Type Department Care Team Description 02/13/2019 Lab Requisition [facility] Arielle Evans for other Pathology & MD Genoveva general examination Laboratory Medicine [address] [place] [address] [address] [place] [address] [place], [place] [id number] Social History Tobacco Use Types Packs/Day Years Used Date Never Assessed Sex Assigned at Date Recorded Not on file documented as of this encounter Plan of Treatment Not on filedocumented as of this encounter Procedures Procedure Name Priority Date/Time Associated Diagnosis Comme nts SURGICAL PATHOLOGY Today 02/10/2019 13:30 Resul ts for this EST procedure are i n the results section. documented in this encounter Results SURGICAL PATHOLOGY (02/10/2019 13:30 EST) Final Diagnosis A. STOMACH, LOCATION NOT FURTHER SPECIFIED, BIOP SY: [facility] Electronically - Antral and oxyntic mucosa with no specific pathologi c features. [facility] signed by Jeanette Butler B. GASTROESOPHAGEAL JUNCTION, BIOPSY: MYLA Santiago MD on 02/20/2019 - Squamocolumnar junctional mucosa with reactive features suggestive of reflux esophagitis. at 1634 - Negative for intestinal metaplasia; negative for dys plasia. C. COLON, ASCENDING, POLYP, BIOPSY: - Tubular adenoma. See comment. D. COLON, TRANSVERSE, POLYP, BIOPSY: - Hyperplastic polyp. See comment. Diagnosis Comment Deeper levels have been [facility] examined on specimens C [facility] and D. [facility] slides of this case SERVICES were reviewed at the intradepartmental consultation conference. Clinical History Preoperative DDX: Screening [facility] Postoperative DX: Colon polyps, small hiatal hernia [facility] Attestation By the signature below, [facility] tronically the attending physician [facility] sign ed by certifies that they LABORATORY Mariajose Vegas have personally SERVICES MD Pamela on 02/20/2019 conducted a gross at 1634 and/or microscopic examination of the described specimens and rendered or confirmed the above diagnosis. Gross Description A. Received in formalin labe lled with proper patient identification (initials B, R) and gastric mucosal biopsy is a single fragment of currie tissue (0.3 x 0.2 x 0.2 cm). The specimen is submitted entirely in A1. [facility] B. Received in formalin labe lled with proper patient identification (initials B, R) and GEJ mucosal biopsy are 2 fragments of currie tissue; each measuring 0.2 x 0.2 x 0.2 cm. The specimens are submitted entirely in B1. [facility] C. Received in formalin lab lled with proper patient identification (initials B, R) and ascending colon polyp are 2 fragments of pink tissue; each measuring 0.4 x 0.3 x 0.3 cm. The specimens are submitted entirely in C1. D. Received in formalin labe lled with proper patient identification (initials B, R) and transverse colon polyp is a single fragment of pink tissue (0.2 x 0.2 x 0.2 cm). The specimen is submitted entirely in D 1. 02/14/2019 08:17 Scanned Images [facility] Specimen Tissue - Entire transverse colon (body s tructure) Tissue specimen (specimen) - Entire esop hagus (body structure) Tissue specimen (specimen) - Ascending c olon structure (body structure) Tissue specimen (specimen) - Entire zambrano sverse colon (body structure) Performing Organization Address City/State/ZIP Code Phon e Number [facility] [address] [place] [address] SERVICES documented in this encounter Visit Diagnoses Diagnosis Encounter for other general examination documented in this encounter Care Teams Urologic Nurse Relationship Specialty Start Date End Date None, Provider PCP - General 01/20/19 documented as of this encounter
[2021-11-07] MEDS: Normal Saline Flush 10 ML SYR IVP (08:09)
[2021-11-07 08:33] LABS: Abs Immature Grans 0.03 10^3/uL (0.0-0.06); Absolute Basophil Count 0.03 10^3/uL (0.0-0.2); Absolute Eosinophil Count 0.09 10^3/uL (0.0-0.7); Absolute Lymphocyte Count 2.27 10^3/uL (1.2-3.4); Absolute Neutrophil Count 6.23 10^3/uL (1.2-6.7); Basophils % 0.3; HCT 30.5 % (40.0-50.0); HGB 10.2 g/dL (13.5-17.5); Immature Grans % 0.3; Lymphocytes % 24.5; MCH 36.8 pg (27.0-33.0); MCHC 33.4 % (32.0-36.0); MCV 110 fL (80-95); MPV 10.5 fL (8.0-11.0); Monocytes % 6.5; Neutrophils % 67.4; Platelet Count 177 10^3/uL (130-400); RBC 2.77 10^6/uL (4.36-5.78); RDW 15.2 % (11.8-14.1); RDW-SD 62.4 fL; WBC 9.25 10^3/uL (4.4-10.8)
[2021-11-07 08:58] LABS: ALT 126 U/L (16-63); AST 187 U/L (15-37); Albumin 2.3 g/dL (3.4-5.0); Anion Gap 8.2 mmol/L (3-11); BUN 10 mg/dL (7-18); Bilirubin, Total 4.1 mg/dL (0.2-1.0); CO2 26.8 mmol/L (21.0-32.0); CREATININE 0.9 mg/dL (0.70-1.30); Calcium 8.5 mg/dL (8.5-10.1); Chloride 104 mmol/L (98-107); Glucose 171 mg/dL (74-106); Potassium 3.5 mmol/L (3.5-5.1); Sodium 139 mmol/L (136-145); Total Protein 6.5 g/dL (6.4-8.2)
[2021-11-07 08:59] LABS: Alkaline Phosphatase 1090 U/L (46-116)
[2021-11-07 09:20] LABS: Diff Comment RBC Morph Reviewed; Macrocytosis 2+
[2021-11-10 14:25] LABS: CA 19-9 48963 U/mL (<35)
== END 2021-11-19 23:59 | disposition home or self-care (01) ==
LOC: INF 00:50
PROVIDERS: Internal Medicine Hematology & Oncology; PCP Physician Assistant Medical; Visit Provider Internal Medicine
DX: C25.0 Malignant neoplasm of head of pancreas (principal); Z45.2 Encounter for adjustment and management of vascular access device; D53.9 Nutritional anemia, unspecified
CPT/HCPCS: 36591; 80053; 85025; 86301